=== PATIENT | female | born 1940 | race Caucasian/White ===

== ENCOUNTER 2016-08-03 14:41 | Emergency (ER) | payer OTHER ==
[~2016-08-03] VITALS: Ht 170.2 cm; Wt 95.0 kg
[~2016-08-03 14:41] MED LIST: ASPI81TA28 PO; CARV25TA2 PO; CLB/200 PO; DICY10CA55 PO; ENOX0.8I8 SQ; HYDR12.56 PO; LEVO50TA PO; LORA-741 PO; NRV5 PO; OXYC1TAB3 PO; TYLOTC500 PO; WARF2.5T8 PO; WARF5TAB7 PO
[2016-08-03 14:47] VITALS: TEMP 37; Ht 170.2 cm; Wt 95.0 kg
[2016-08-03] MEDS ORDERED: LEVO25TA5 PO (14:52)
[2016-08-03] MEDS ORDERED: ONDANSETRON INJ 2 MG/ML 2 ML VIAL IV STA (15:08)
[2016-08-03] MEDS ORDERED: MoRPHine SULFATE 4 MG/ML 1 ML CARP\\VIAL IV STA (15:08)
--- NOTE | 2016-08-03 15:16 | EMERGENCY ROOM VISIT NOTE ---
History First contact with patient: 14:59 Chief Complaint: SHOULDER PAIN Stated Complaint: FALL/SHOULDER PAIN History of Present Illness The patient is a 75 year old female who presents to the Emergency Room with complaints of fall. The patient was at home when a dog that was a visiting was running away and she took several steps to [place] after the dog and slipped on ice. The patient states she tried to catch herself with her right arm and fell onto her right side. She reports pain in the right side of her neck and right shoulder. The pain is rated a 10/10 and is worse with any movement. The patient denies striking her head or having loss of consciousness. She denies any chest pain, trouble breathing, abdominal pain, nausea or vomiting. She denies any pain in the hips, lower extremities or left upper extremity. The patient states that although with some difficulty she was able to get up and ambulate after the fall. She was brought to the emergency department via ALS ambulance and had received IV fentanyl in route. She states that this did not help her pain. The patient does take Coumadin. Review of Systems A 10 system review of systems was completed with positives and pertinent negatives listed in the HPI. Past Medical/Surgical History Medical Problems: (1) Atrial fibrillation (2) CAD (coronary artery disease) (3) DVT (deep venous thrombosis) (4) Dyslipidemia (5) GERD (gastroesophageal reflux disease) (6) HTN (hypertension) (7) Hypothyroidism (8) IPMN (intraductal papillary mucinous neoplasm) (9) Pacemaker (10) Pulmonary embolism (11) SSS (sick sinus syndrome) Surgical Problems: (1) H/O arthroscopy of knee (2) H/O arthroscopy of shoulder (3) History of hysterectomy (4) Hx of adenoidectomy (5) Hx of appendectomy (6) Hx of cataract surgery (7) Hx of cholecystectomy (8) Hx of hemorrhoidectomy (9) Hx of tonsillectomy (10) S/P BSO (bilateral salpingo-oophorectomy) (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 Social History Smoking Status: Never Smoker Marital Status: Housing Status: lives with significant other Occupation Status: retired Current/Historical Medications Scheduled Amlodipine Besylate (Amlodipine Besylate), 5 MG PO DAILY Aspirin (Aspirin Ec), 81 MG PO HS Carvedilol (Coreg), 25 MG PO BID Levothyroxine Sodium (Levothyroxine Sodium), 25 MG PO DAILY Warfarin Sod (Jultoven), 2.5 MG PO QPM Warfarin Sod (Jultoven), 5 MG PO Scheduled PRN Acetaminophen (Tylenol), 1,000 MG PO for Pain or Fever Celecoxib (CeleBREX), 200 MG PO for Pain Dicyclomine Hcl (Bentyl), 20 MG PO BID PRN for ABDOMINAL PAIN Hydrochlorothiazide (Hctz), 1 CAP PO QAM PRN for swelling Lorazepam (Ativan), 0.5 MG PO HS PRN for Sleep Omeprazole (Prilosec), 20 MG PO DAILY PRN for Dyspepsia Oxycodone Ir (Roxicodone Ir), 1-2 TAB PO Q4H PRN for Pain Allergies Coded Allergies: Prednisone (Verified Allergy, Severe, GI PAIN-LED TO PANCREATITIS, ) Iodinated Diagnostic Agents (Verified Allergy, Unknown, HIVES-ANAPHYLACTIC , 06/16/16) Losartan (Unverified Allergy, Unknown, NAUSEA AND VOMITING, 06/16/16) Ranitidine (Unverified Allergy, Unknown, NAUSEA AND VOMITING,ACHY, ) Rosiglitazone (Verified Adverse Reaction, Severe, BLOOD CLOTS, 06/16/16) Physical Exam Vital Signs Date Time Temp Pulse Resp B/P Pulse Ox O2 Delivery O2 Flow Rate FiO2 08/03/16 19:46 63 16 136/87 96 Room Air 08/03/16 14:47 37.0 82 20 180/112 93 Room Air Physical Exam VITALS: Vitals are noted on the nurse's note and reviewed by myself. Vital signs stable. GENERAL: This is a 75-year-old female, in no acute distress, nondiaphoretic, well-developed well-nourished. SKIN: The skin was without rashes, erythema, edema, or bruising. There is a lipoma to the mid right upper arm which has been there for some time. There are no lacerations or abrasions. There is no tenting of the skin. Capillary reflex less than 2 seconds. HEAD: Normocephalic atraumatic. EARS: External auditory canals clear, tympanic membranes pearly shah without erythema or effusion bilaterally. No hemotympanum. No martins sign. No mastoid tenderness. EYES: Pupils equal round and reactive to light and accommodation. Conjunctivae without injection, sclerae without icterus. Extraocular movements intact. NOSE: Patent, turbinates without inflammation or discharge. No septal hematoma or bleeding. FACE: No facial tenderness. Full range of motion of the jaw without tenderness. MOUTH: Mucous membranes moist. Pharynx without erythema or exudate. Uvula midline. Airway patent. Tongue does not deviate. NECK: Supple without nuchal rigidity. Cervical spine is nontender. There is mild tenderness to palpation to the paraspinous muscles on the right. No JVD. HEART: Regular rate and rhythm without murmurs gallops or rubs. LUNGS: Clear to auscultation bilaterally without wheezes, rales or rhonchi. No dullness to percussion. No retractions or accessory muscle use. No chest tenderness. ABDOMEN: Positive bowel sounds x 4. Soft, nontender, without masses or organomegaly. MUSCULOSKELETAL: No muscle atrophy, erythema, or edema noted. The patient is unable to move the right shoulder secondary to pain. There is no tenderness to palpation over the right hand, wrist, forearm or elbow. There is no obvious deformity. The patient is unable to sit up to examine the back due to discomfort. Strength 5/5 throughout. NEURO: Patient was alert and oriented to person place and time. Normal Mini- Mental status exam. No focal neurological deficits. Medical Decision & Procedures ER Provider Diagnostic Interpretation: [~ rep ct add3]] RIGHT SHOULDER 2 VIEWS CLINICAL HISTORY: Fall with right arm pain. FINDINGS: 2 views of the right shoulder are obtained. No prior studies are available for comparison at time dictation. The skeletal structures are osteopenic. There is an impacted and comminuted fracture through the right humeral head and neck. The greater tuberosity is posteriorly distracted. Overlying soft tissue edema is observed. No dislocation is seen. The acromioclavicular joint is normal as visualized. The skeletal structures are osteopenic. Pacemaker leads are partially imaged. Airspace opacities are noted at the right lung base and may represent atelectasis. IMPRESSION: 1. There is an impacted and comminuted fracture through the right humeral head and neck with posterior distraction of the greater tuberosity and overlying soft tissue edema. 2. No additional fracture is identified. There is no dislocation. RIGHT HUMERUS MIN 2 VIEWS ROUTINE CLINICAL HISTORY: fall, arm pain Right trauma. Pain. COMPARISON: None. DISCUSSION: Comminuted fracture of the humeral head and neck. Partial anterior subluxation. Remainder of the humerus is unremarkable. Visualized components of the elbow are unremarkable. There is no evidence for soft tissue swelling. IMPRESSION: Comminuted fracture humeral head and neck with partial anterior subluxation of the humeral head in relation to the glenoid. [~ rep ct add3]] CT HEAD WITHOUT CONTRAST (CT) CLINICAL HISTORY: Head trauma. Patient on Coumadin. COMPARISON STUDY: 07/10/2014 TECHNIQUE: Axial CT of the brain is performed from the vertex to the skull base. IV contrast was not administered for this examination. CT DOSE: FINDINGS: No intra or extra-axial mass lesions are visualized. There is no CT evidence of acute cortical infarction. There is no evidence of midline shift. There is no acute hemorrhage. No calvarial fractures are visualized. There are patchy white matter hypodensities likely on a small vessel basis. There is no evidence of pathologic ventricular dilatation. There is no evidence of acute sinusitis. There is a 15 mm ovoid nodule within the right frontoparietal scalp, possibly representing a sebaceous cyst. This appears larger on the prior study. IMPRESSION: 1. No acute intracranial findings 2. Enlarging 15 mm ovoid right frontal parietal scalp nodule, possibly representing a sebaceous cyst CERVICAL SPINE CT CT DOSE: 1210.15 mGy.cm HISTORY: fall, neck pain TECHNIQUE: Multiaxial CT images of the cervical spine were performed and reformatted in the sagittal and coronal plane without the use of contrast. COMPARISON: None. FINDINGS: No fractures. No subluxation. Prevertebral soft tissues and the C1-C2 interval are intact. No pneumothorax. Moderate to severe disc space narrowing at C5-C6 and C6-C7. Minimal anterior wedging within the C7 vertebral body is likely chronic. IMPRESSION: No acute fractures within the cervical spine. RIGHT SHOULDER CT CT DOSE: 1343.13 mGy.cm HISTORY: right proximal humerus fracture Right TECHNIQUE: Multiaxial CT images of the right shoulder were performed and reformatted in the sagittal and coronal plane without the use of contrast. COMPARISON: Right shoulder and right humerus 08/03/2016. FINDINGS: Left-sided pacemaker wires are noted. There are poststernotomy changes. The right clavicle, scapula, and visualized right ribs are intact. There is again noted a comminuted and impacted right humeral neck fracture which extends to the greater tuberosity of the humeral head. No dislocation. The humeral head demonstrates up to 1 cm of lateral displacement in relation to the humeral neck. There are few small sclerotic foci within the proximal humeral shaft with the largest measuring 1 cm. Perihilar groundglass opacity and mild interlobular septal thickening within the lungs favors mild pulmonary edema. No right-sided pneumothorax. Mild soft tissue edema surrounding the proximal humerus fracture. IMPRESSION: 1. Comminuted, impacted, mildly displaced right humeral neck fracture which extends to the greater tuberosity of the humeral head. No dislocation. 2. There are few small sclerotic foci within the marrow of the proximal humeral shaft. This could be due to the recent trauma. However, this does raise the possibility of a pathologic fracture. 3. Mild pulmonary edema. Laboratory Results 08/03/16 17:18 Red Blood Count 4.69, Mean Corpuscular Volume 87.2, Mean Corpuscular Hemoglobin 29.0, Mean Corpuscular Hemoglobin Concent 33.3, Mean Platelet Volume 12.3, Neutrophils (%) (Auto) 82.5, Lymphocytes (%) (Auto) 9.6, Monocytes (%) (Auto) 7.1, Eosinophils (%) (Auto) 0.3, Basophils (%) (Auto) 0.2, Neutrophils # (Auto) 9.82, Lymphocytes # (Auto) 1.14, Monocytes # (Auto) 0.84, Eosinophils # (Auto) 0.03, Basophils # (Auto) 0.02 08/03/16 17:18 Test 08/03/16 17:18 White Blood Count 11.88 K/uL (4.8-10.8) Red Blood Count 4.69 M/uL (4.2-5.4) Hemoglobin 13.6 g/dL (12.0-16.0) Hematocrit 40.9 % (37-47) Mean Corpuscular Volume 87.2 fL (80-100) Mean Corpuscular Hemoglobin 29.0 pg (25-34) Mean Corpuscular Hemoglobin Concent 33.3 g/dl (32-36) Platelet Count 199 K/uL (130-400) Mean Platelet Volume 12.3 fL (7.4-10.4) Neutrophils (%) (Auto) 82.5 % Lymphocytes (%) (Auto) 9.6 % Monocytes (%) (Auto) 7.1 % Eosinophils (%) (Auto) 0.3 % Basophils (%) (Auto) 0.2 % Neutrophils # (Auto) 9.82 K/uL (1.4-6.5) Lymphocytes # (Auto) 1.14 K/uL (1.2-3.4) Monocytes # (Auto) 0.84 K/uL (0.11-0.59) Eosinophils # (Auto) 0.03 K/uL (0-0.5) Basophils # (Auto) 0.02 K/uL (0-0.2) RDW Standard Deviation 46.8 fL (36.4-46.3) RDW Coefficient of Variation 14.8 % (11.5-14.5) Immature Granulocyte % (Auto) 0.3 % Immature Granulocyte # (Auto) 0.03 K/uL (0.00-0.02) Prothrombin Time 44.8 SECONDS (9.0-12.0) Prothromb Time International Ratio 4.0 (0.9-1.1) Activated Partial Thromboplast Time 36.4 SECONDS (21.0-31.0) Partial Thromboplastin Ratio 1.4 Anion Gap 11.0 mmol/L (3-11) Est Creatinine Clear Calc Drug Dose 73.6 ml/min Estimated GFR () 86.9 Estimated GFR (Non- 75.0 BUN/Creatinine Ratio 22.1 (10-20) Calcium Level 8.5 mg/dl (8.5-10.1) Medications Administered Medications (Trade) Dose Ordered Sig/Anastasia Route Start Time Stop Time Status Last Admin Dose Admin Morphine Sulfate (MoRPHine SULFATE INJ) 4 mg NOW STAT IV 08/03/16 15:08 08/03/16 15:12 DC 08/03/16 15:33 4 MG Ondansetron HCl (Zofran Inj) 4 mg NOW STAT IV 08/03/16 15:08 08/03/16 15:12 DC 08/03/16 15:32 4 MG Hydromorphone HCl (Dilaudid Inj) 0.5 mg NOW STAT IV 08/03/16 16:33 08/03/16 16:38 DC 08/03/16 16:40 0.5 MG Hydromorphone HCl (Dilaudid Inj) 0.5 mg NOW STAT IV 08/03/16 18:44 08/03/16 18:45 DC 08/03/16 19:07 0.5 MG Procedure The patient was placed in a sling and swath by the emergency department digital camera technician. The position was satisfactory. Neurovascular status was intact. ED Course The patient was seen and examined. Previous visits were reviewed. The patient does not have a fever. She does have a mild leukocytosis. She does not have any significant electrolyte abnormality. INR was 4.0 and she was advised of this. CT scan of the brain and neck do not reveal any acute abnormality X-ray of the right shoulder reveals a displaced proximal humerus fracture The patient received IV fentanyl by ALS ambulance prior to arrival The patient was initially given 4 mg IV morphine and 4 mg IV Zofran with no improvement in her pain She was given 0.5 mg IV Dilaudid and she seems slightly sedated but stated is only mildly helped her pain She was given an additional 0.5 mg IV Dilaudid prior to discharge I discussed the case with Dr. Barker as the patient has seen Dr. Lewis in the past. He suggests follow-up as an outpatient. He called back after discussing the case with Dr. Robison who requested a CT scan of the shoulder. This was obtained as above. They recommend follow-up with Dr. Robison most likely on Sunday. The patient was placed in a sling and swath shoulder immobilizer and her pain did mildly improve with this The patient was given a take-home pack of OxyIR as well as a prescription. The patient did seem to be sedated with the above medications. She states that she had taken 10 mg oxycodone in the past for many years. She was advised to take 1 -2 OxyIR tablets as needed. She should contact orthopedics first thing in the morning to schedule a follow-up appointment. She should return to the ER with any worsening symptoms. The patient was anxious to leave and did not want to wait for the INR to return. Just prior to discharge, I advised her that it was 4.0. She was advised to discuss this with her doctor in the morning. The patient was also seen and examined by who agrees with the assessment and treatment plan. Medical Decision The differential diagnosis includes intracranial bleeding, skull fracture, cervical spine fracture, extremity fracture, contusion, among others [place] Drug Monitoring Program Search Results: patient reviewed within database, see additional documentation Drug Monitoring Findings: The patient does fill oxycodone tablets regularly. However, the patient does have a displaced proximal humerus fracture and I will prescribe her pain medication. Impression Primary Impression: Proximal humerus fracture Additional Impressions: Fall Cervical strain Closed head injury Departure Information Dispostion Home / Self-Care Condition GOOD Prescriptions Oxycodone Ir (Roxicodone Ir) 5 Mg Tab 1-2 TAB PO Q4H Y for Pain, #36 TAB For Initial Treatment Prov: Sita Wagoner PA-C 08/03/16 Referrals Payam Escalona D.O. (PCP) Calvin Robison M.D. Patient Instructions Fx Leg Arm, My [facility] [employer] Additional Instructions Oxy IR 1-2 tablets every 4-6 hrs as needed for worse pain. No driving or alcohol use with Oxy IR. Wear the sling and swath until seen by orthopedics Sleep in a recliner Contact orthopedics first thing in the morning to schedule a follow-up appointment with Dr. Robison Return with any worsening pain, numbness, tingling Problem Qualifiers Primary Impression: Proximal humerus fracture Encounter type: initial encounter Fracture type: closed Fracture morphology : other fracture Fracture alignment: displaced Laterality: right Qualified Codes: S42.291A - Other displaced fracture of upper end of right humerus, initial encounter for closed fracture Additional Impressions: Fall Encounter type: initial encounter Qualified Codes: W19.XXXA - Unspecified fall, initial encounter Cervical strain Encounter type: initial encounter Qualified Codes: S16.1XXA - Strain of muscle, fascia and tendon at neck level, initial encounter Closed head injury Encounter type: initial encounter Qualified Codes: S09.90XA - Unspecified injury of head, initial encounter
[2016-08-03] MEDS ORDERED: OMEP20CA9 PO (15:31)
--- NOTE | 2016-08-03 16:02 | DIAGNOSTIC IMAGING REPORT ---
RIGHT SHOULDER 2 VIEWS CLINICAL HISTORY: Fall with right arm pain. FINDINGS: 2 views of the right shoulder are obtained. No prior studies are available for comparison at time dictation. The skeletal structures are osteopenic. There is an impacted and comminuted fracture through the right humeral head and neck. The greater tuberosity is posteriorly distracted. Overlying soft tissue edema is observed. No dislocation is seen. The acromioclavicular joint is normal as visualized. The skeletal structures are osteopenic. Pacemaker leads are partially imaged. Airspace opacities are noted at the right lung base and may represent atelectasis. IMPRESSION: 1. There is an impacted and comminuted fracture through the right humeral head and neck with posterior distraction of the greater tuberosity and overlying soft tissue edema. 2. No additional fracture is identified. There is no dislocation. Electronically signed by: Baljeet Avitia M.D. 08/03/2016 4:00 PM Dictated Date/Time: 08/03/2016 3:58 PM
--- NOTE | 2016-08-03 16:02 | DIAGNOSTIC IMAGING REPORT ---
RIGHT HUMERUS MIN 2 VIEWS ROUTINE CLINICAL HISTORY: fall, arm pain Right trauma. Pain. COMPARISON: None. DISCUSSION: Comminuted fracture of the humeral head and neck. Partial anterior subluxation. Remainder of the humerus is unremarkable. Visualized components of the elbow are unremarkable. There is no evidence for soft tissue swelling. IMPRESSION: Comminuted fracture humeral head and neck with partial anterior subluxation of the humeral head in relation to the glenoid. Electronically signed by: Josh David M.D. 08/03/2016 4:00 PM Dictated Date/Time: 08/03/2016 3:58 PM
--- NOTE | 2016-08-03 16:28 | DIAGNOSTIC IMAGING REPORT ---
CT HEAD WITHOUT CONTRAST (CT) CLINICAL HISTORY: Head trauma. Patient on Coumadin. COMPARISON STUDY: 07/10/2014 TECHNIQUE: Axial CT of the brain is performed from the vertex to the skull base. IV contrast was not administered for this examination. CT DOSE: FINDINGS: No intra or extra-axial mass lesions are visualized. There is no CT evidence of acute cortical infarction. There is no evidence of midline shift. There is no acute hemorrhage. No calvarial fractures are visualized. There are patchy white matter hypodensities likely on a small vessel basis. There is no evidence of pathologic ventricular dilatation. There is no evidence of acute sinusitis. There is a 15 mm ovoid nodule within the right frontoparietal scalp, possibly representing a sebaceous cyst. This appears larger on the prior study. IMPRESSION: 1. No acute intracranial findings 2. Enlarging 15 mm ovoid right frontal parietal scalp nodule, possibly representing a sebaceous cyst Electronically signed by: Danilo Bautista M.D. 08/03/2016 4:26 PM Dictated Date/Time: 08/03/2016 4:24 PM
[2016-08-03] MEDS ORDERED: HYDROmorphone INJ 0.5 MG/0.5 ML SYR IV STA ×2 (16:33→18:44)
--- NOTE | 2016-08-03 16:38 | DIAGNOSTIC IMAGING REPORT ---
CERVICAL SPINE CT CT DOSE: 1210.15 mGy.cm HISTORY: fall, neck pain TECHNIQUE: Multiaxial CT images of the cervical spine were performed and reformatted in the sagittal and coronal plane without the use of contrast. COMPARISON: None. FINDINGS: No fractures. No subluxation. Prevertebral soft tissues and the C1-C2 interval are intact. No pneumothorax. Moderate to severe disc space narrowing at C5-C6 and C6-C7. Minimal anterior wedging within the C7 vertebral body is likely chronic. IMPRESSION: No acute fractures within the cervical spine. Electronically signed by: Preston Schroeder M.D. 08/03/2016 4:37 PM Dictated Date/Time: 08/03/2016 4:30 PM
[2016-08-03 17:35] LABS: BASO % 0.2 %; BASO ABS # 0.02 K/uL (0-0.2); COMPLETE YES; EOS % 0.3 %; HEMATOCRIT 40.9 % (37-47); IG% 0.3 %; LYMPH % 9.6 %; LYMPH ABS # 1.14 K/uL (1.2-3.4); MEAN CELL VOLUME 87.2 fL (80-100); MEAN CORPUSCULAR HGB CONC 33.3 g/dl (32-36); MEAN PLATELET VOLUME 12.3 fL (7.4-10.4); MONO % 7.1 %; NEUT % 82.5 %; PLATELET COUNT 199 K/uL (130-400); RED BLOOD COUNT 4.69 M/uL (4.2-5.4); WHITE BLOOD COUNT 11.88 K/uL (4.8-10.8)
--- NOTE | 2016-08-03 17:59 | DIAGNOSTIC IMAGING REPORT ---
RIGHT SHOULDER CT CT DOSE: 1343.13 mGy.cm HISTORY: right proximal humerus fracture Right TECHNIQUE: Multiaxial CT images of the right shoulder were performed and reformatted in the sagittal and coronal plane without the use of contrast. COMPARISON: Right shoulder and right humerus 08/03/2016. FINDINGS: Left-sided pacemaker wires are noted. There are poststernotomy changes. The right clavicle, scapula, and visualized right ribs are intact. There is again noted a comminuted and impacted right humeral neck fracture which extends to the greater tuberosity of the humeral head. No dislocation. The humeral head demonstrates up to 1 cm of lateral displacement in relation to the humeral neck. There are few small sclerotic foci within the proximal humeral shaft with the largest measuring 1 cm. Perihilar groundglass opacity and mild interlobular septal thickening within the lungs favors mild pulmonary edema. No right-sided pneumothorax. Mild soft tissue edema surrounding the proximal humerus fracture. IMPRESSION: 1. Comminuted, impacted, mildly displaced right humeral neck fracture which extends to the greater tuberosity of the humeral head. No dislocation. 2. There are few small sclerotic foci within the marrow of the proximal humeral shaft. This could be due to the recent trauma. However, this does raise the possibility of a pathologic fracture. 3. Mild pulmonary edema. Electronically signed by: Preston Schroeder M.D. 08/03/2016 5:58 PM Dictated Date/Time: 08/03/2016 5:52 PM
[2016-08-03 18:09] LABS: POTASSIUM 3.7 mmol/L (3.5-5.1)
[2016-08-03 18:13] LABS: PARTIAL THROMBOPLASTIN RATIO 1.4; PROTHROMBIN TIME (PATIENT) 44.8 SECONDS (9.0-12.0)
[2016-08-03 18:34] LABS: BUN/CREATININE RATIO 22.1 (10-20); CALCIUM 8.5 mg/dl (8.5-10.1); CREATININE 0.77 mg/dl (0.60-1.20)
[2016-08-03] MEDS ORDERED: OXYC1TAB3 PO (18:50)
[2016-08-03] MEDS ORDERED: OXYCODONE IR HOME PACK PO ONE (19:00)
--- NOTE | 2016-08-03 19:02 | EMERGENCY ROOM VISIT NOTE ---
ED Visit Note First contact with patient: 14:59 Staff note: I have reviewed the Patients chart and have discussed this case with my PA. I generally agree with the ED note and findings.
[2016-08-03 19:46] VITALS: BP 136/87; PULSE 63; O2SAT 96
[2016-12-19] MEDS ORDERED: IMDSR60 PO (13:46)
== END 2016-08-03 19:47 | disposition home or self-care (01) ==
LOC: EDBD 14:41 → C.EDA 14:45
DX: S42.291A Other displaced fracture of upper end of right humerus, initial encounter for closed fracture (principal); S16.1XXA Strain of muscle, fascia and tendon at neck level, initial encounter; S09.90XA Unspecified injury of head, initial encounter; W00.0XXA Fall on same level due to ice and snow, initial encounter; I48.91 Unspecified atrial fibrillation; I25.10 Atherosclerotic heart disease of native coronary artery without angina pectoris; K21.9 Gastro-esophageal reflux disease without esophagitis; E78.5 Hyperlipidemia, unspecified; I10 Essential (primary) hypertension; E03.9 Hypothyroidism, unspecified; Z95.0 Presence of cardiac pacemaker; Z90.710 Acquired absence of both cervix and uterus; Z79.82 Long term (current) use of aspirin

== ENCOUNTER 2016-12-18 15:37 | Observation (INO) | payer OTHER ==
[~2016-12-18] VITALS: Ht 170.2 cm; Wt 61.4 kg
[~2016-12-18 15:37] MED LIST changes: -ENOX0.8I8 SQ; +LEVO25TA5 PO; -LEVO50TA PO; +OMEP20CA9 PO
[2016-12-18] MEDS ORDERED: PROPARACAINE HCL 0.5% OP SOLN 15 ML BTL ONE (16:25)
--- NOTE | 2016-12-18 16:31 | DIAGNOSTIC IMAGING REPORT ---
CHEST ONE VIEW PORTABLE CLINICAL HISTORY: Atypical chest pain COMPARISON STUDY: 06/14/2016 FINDINGS: The heart is at the upper limits of normal in size. There are postsurgical changes of a midline sternotomy. There is a left subclavian dual-chamber central venous pacemaker. There is no failure. There is no focal pulmonary consolidation. There are no pleural effusions.[ There is a comminuted proximal right humeral fracture. IMPRESSION: AP portable study. No acute findings. Electronically signed by: Danilo Bautista M.D. 12/18/2016 4:30 PM Dictated Date/Time: 12/18/2016 4:29 PM
[2016-12-18 16:50] LABS: BASO % 0.5 %; BASO ABS # 0.03 K/uL (0-0.2); COMPLETE YES; EOS % 1.4 %; HEMATOCRIT 44.8 % (37-47); IG% 0.5 %; LYMPH % 28.8 %; LYMPH ABS # 1.82 K/uL (1.2-3.4); MEAN CELL VOLUME 85.7 fL (80-100); MEAN CORPUSCULAR HEMOGLOBIN 28.3 pg (25-34); MONO % 9.2 %; NEUT % 59.6 %; PLATELET COUNT 198 K/uL (130-400); RED BLOOD COUNT 5.23 M/uL (4.2-5.4); WHITE BLOOD COUNT 6.31 K/uL (4.8-10.8)
[2016-12-18] MEDS ORDERED: ISOS60TA25 PO (16:51)
[2016-12-18] MEDS ORDERED: NTRSL3 UT (16:51)
[2016-12-18] MEDS ORDERED: IBUP-1050 PO (16:51)
[2016-12-18] MEDS ORDERED: TRAZ50TA35 PO (16:51)
[2016-12-18] MEDS ORDERED: TRAM-10 PO (16:51)
[2016-12-18] MEDS ORDERED: BUSP15TA70 PO (16:51)
[2016-12-18] MEDS ORDERED: HYDR5TAB57 PO (16:51)
[2016-12-18 16:59] LABS: INR 2.4 (0.9-1.1); PROTHROMBIN TIME (PATIENT) 26.2 SECONDS (9.0-12.0)
[2016-12-18 17:11] LABS: ALT/SGPT 25 U/L (12-78); AST/SGOT 14 U/L (15-37); BLOOD UREA NITROGEN 16 mg/dl (7-18); BUN/CREATININE RATIO 20.2 (10-20); CALCIUM 9.1 mg/dl (8.5-10.1); CARBON DIOXIDE 28 mmol/L (21-32); CHLORIDE 107 mmol/L (98-107); CREATININE 0.79 mg/dl (0.60-1.20); GLUCOSE 103 mg/dl (70-99); MAGNESIUM 2.2 mg/dl (1.8-2.4); POTASSIUM 3.5 mmol/L (3.5-5.1); SODIUM 142 mmol/L (136-145)
[2016-12-18 17:16] LABS: ALB/GLOB RATIO 1.1 (0.9-2); ALKALINE PHOSPHATASE 102 U/L (45-117)
[2016-12-18] MEDS ORDERED: ONDANSETRON INJ 2 MG/ML 2 ML VIAL IV PRN (18:15)
[2016-12-18] MEDS ORDERED: ZOLPIDEM TARTRATE 5 MG TAB PO PRN (18:15)
[2016-12-18] MEDS ORDERED: ALUMINUM/MAGNESIUM/SIMETH (MAALOX MAX) 30 ML UDC PO PRN (18:15)
[2016-12-18] MEDS ORDERED: ACETAMINOPHEN 325 MG TAB PO PRN (18:15)
[2016-12-18] MEDS ORDERED: POLYETHYLENE (MIRALAX) 17 GM PACK PO PRN (18:15)
[2016-12-18] MEDS ORDERED: NITROGLYCERIN 0.4 MG SL PER TAB CHARGE SL PRN (18:15)
[2016-12-18] MEDS ORDERED: MAGNESIUM HYDROXIDE SUSP 30 ML UDC PO PRN (18:15)
--- NOTE | 2016-12-18 18:15 | History and Physical ---
History & Physical Date & Time of Service: Dec 18, 2016 at 18:15 Chief Complaint: Chest Pain Primary Care Physician: Payam Escalona D.O. History of Present Illness Source: patient this is a 76 yo female with extensive cardiac hx of S/P CABG X3 vessels disease in [place] 2005 , S/P cardiac stent , Afib on Coumadin , Hx of DVT /PE , Sick sinus syndrome s/p pacemaker placement , HTN came to ED with complain of chest pain /discomfort with minimum exertion . Pt has been having anginal symptom with activity for approx X3 week , symptom has been progressively worsen to the point it is limiting her daily activities She has Lexiscan Nc stress done on 11/21 showed : Lateral and basilar inferior lateral ischemia , gated images reveal normal myocardial thickening and wall motion , EF > 70 % pt was offered for Cardiac Cath -refused with concern for possible adverse reaction /allergic reaction to contrast dye she experienced during prior CABG surgery in [place] she was started on Imdur 30 mg daily Pt had improvement of Angina symptom on exertion for few days , then symptoms return -gets substernal chest heaviness with activity , gets relief with rest Had office visit with Dr Mercado on -was encouraged again for cardiac cath possibly needs to be done at [place] pt refused for cardiac intervention Imdur dose increased to 60 mg daily script given for SL nitro PRN pt is asked to come to ED with any symptom of worsening of chest pain or SOB today -her symptom was persisted , minimum activity caused substernal chest discomfort pt arrived to ED pain was relieved with SL nitro during my time of interview , pt was chest pain free, comfortable mentions she never gets pain or SOB if stays in bed or sitting had discussion regarding need for Cardiac cath for possible worsening of coronary occlusion as noted in Last Nc stress test should be done in [place] for her concern for severe dye allergy pt is still reluctant for Cardiac cath , does not want to go to [place] also mentions her reluctance to take Prednisone for prep -as it made her sick in stomach ( pt has been taking Cortef /Hydrocortisone 5 mg PO Daily per Dr Carter / Endocrine for possible adrenal insufficiency -has not had any problem with PO steroid ) pt mentions she has not taken Imdur 60 mg today as she took SL nitro Past Medical/Surgical History Medical Problems: (1) Atrial fibrillation Status: Chronic (2) CAD (coronary artery disease) Permanent Comment: s/p CABG x 3, PCI x 3 Status: Chronic (3) DVT (deep venous thrombosis) Status: Chronic (4) Dyslipidemia Status: Chronic (5) GERD (gastroesophageal reflux disease) Status: Chronic (6) HTN (hypertension) Status: Chronic (7) Hypothyroidism Status: Chronic (8) IPMN (intraductal papillary mucinous neoplasm) Status: Chronic (9) Pacemaker Status: Chronic (10) Pulmonary embolism Status: Chronic (11) SSS (sick sinus syndrome) Status: Chronic Surgical Problems: (1) H/O arthroscopy of knee Status: Chronic (2) H/O arthroscopy of shoulder Status: Chronic (3) History of hysterectomy Status: Chronic (4) Hx of adenoidectomy Status: Chronic (5) Hx of appendectomy Status: Chronic (6) Hx of cataract surgery Status: Chronic (7) Hx of cholecystectomy Status: Chronic (8) Hx of hemorrhoidectomy Status: Chronic (9) Hx of tonsillectomy Status: Chronic (10) S/P BSO (bilateral salpingo-oophorectomy) Status: Chronic (11) S/P CABG x 3 Status: Chronic Family History Patient reports no known family medical history. Social History Smoking Status: Never Smoker Marital Status: Housing status: lives with family Occupational Status: retired Immunizations History of Influenza Vaccine: Yes Influenza Vaccine Date: Apr 01, 2011 History of Tetanus Vaccine?: Yes Tetanus Immunization Date: Sep 13, 2011 History of Pneumococcal: Yes Pneumococcal Date: Apr 04, 2013 History of Hepatitis B Vaccine: No Multi-Drug Resistant Organisms History of MDRO: No Allergies Coded Allergies: Prednisone (Verified Allergy, Severe, GI PAIN-LED TO PANCREATITIS, 12/18/16 ) Iodinated Diagnostic Agents (Verified Allergy, Unknown, HIVES-ANAPHYLACTIC , 12/18/16) Losartan (Verified Allergy, Unknown, NAUSEA AND VOMITING, 12/18/16) Ranitidine (Verified Allergy, Unknown, NAUSEA AND VOMITING,ACHY, 12/18/16) Rosiglitazone (Verified Adverse Reaction, Severe, BLOOD CLOTS, 12/18/16) Home Medications Scheduled Amlodipine Besylate (Amlodipine Besylate), 5 MG PO DAILY Aspirin (Aspirin Ec), 81 MG PO HS Buspirone Hcl (Buspar), 15 MG PO BID Carvedilol (Coreg), 25 MG PO BID Hydrocortisone (Cortef), 5 MG PO Q2D Isosorbide Mononitrate Ext Rel (Imdur Ext Rel), 60 MG PO QAM Levothyroxine Sodium (Levothyroxine Sodium), 25 MCG PO DAILY Trazodone Hcl (Trazodone), 50 MG PO HS Warfarin Sod (Jantoven), 2.5 MG PO QPM Scheduled PRN Celecoxib (CeleBREX), 200 MG PO for Pain Dicyclomine Hcl (Bentyl), 20 MG PO BID PRN for ABDOMINAL PAIN Hydrochlorothiazide (Hctz), 1 CAP PO QAM PRN for swelling Ibuprofen (Advil), 200-600 MG PO Q4H PRN for Pain Nitroglycerin (Nitrostat), 0.3 MG UT PRN PRN for Chest Pain Omeprazole (Prilosec), 20 MG PO DAILY PRN for Dyspepsia Tramadol (Ultram), 50 MG PO QID PRN for Pain Review of Systems Respiratory: + shortness of breath, + dyspnea on exertion Cardiovascular: + chest pain, + problem reported (substernal chest pain on minimum extertion ) Abdomen: No pain, No nausea, No vomiting, No diarrhea, No constipation, No GI bleeding, No problem reported Genitourinary - Female: No dysuria, No urinary frequency, No urinary urgency, No urinary incontinence, No urinary retention, No hematuria, No dysmenorrhea, No menorrhagia, No metrorrhagia, No rash, No vaginal bleeding, No vaginal discharge, No vaginal itching, No vulvodynia, No , No problem reported Neurologic: No memory loss, No paralysis, No weakness, No numbness/tingling, No vertigo, No balance problems, No problem reported Physical Exam Vital Signs Date Time Temp Pulse Resp B/P (MAP) Pulse Ox O2 Delivery O2 Flow Rate FiO2 12/18/16 17:14 150/94 12/18/16 17:07 67 21 93 12/18/16 16:52 69 16 93 12/18/16 16:37 65 18 93 12/18/16 16:22 64 17 93 12/18/16 16:07 76 16 93 12/18/16 15:52 78 21 96 12/18/16 15:46 95 Room Air 12/18/16 15:43 85 12/18/16 15:43 36.7 81 21 196/119 97 Room Air 12/18/16 15:41 196/119 12/18/16 15:38 Room Air General Appearance: no apparent distress Eyes: sclerae normal Neck: thyroid normal, no carotid bruits Respiratory/Chest: chest non-tender, lungs clear, no respiratory distress Cardiovascular: regular rate, rhythm, no JVD Abdomen/GI: normal bowel sounds, non tender, soft Extremities/Musculoskelatal: + pedal edema (+ 1-2 pedal edema on left leg / ankle, normal exam on right ) Neurologic/Psych: no motor/sensory deficits, alert, oriented x 3 Skin: normal color, warm/dry, no rash Diagnostics Laboratory Results Results Past 24 Hours Test 12/18/16 16:44 12/18/16 18:10 Range/Units White Blood Count 6.31 4.8-10.8 K/uL Red Blood Count 5.23 4.2-5.4 M/uL Hemoglobin 14.8 12.0-16.0 g/dL Hematocrit 44.8 37-47 % Mean Corpuscular Volume 85.7 80-100 fL Mean Corpuscular Hemoglobin 28.3 25-34 pg Mean Corpuscular Hemoglobin Concent 33.0 32-36 g/dl Platelet Count 198 130-400 K/uL Mean Platelet Volume 12.0 7.4-10.4 fL Neutrophils (%) (Auto) 59.6 % Lymphocytes (%) (Auto) 28.8 % Monocytes (%) (Auto) 9.2 % Eosinophils (%) (Auto) 1.4 % Basophils (%) (Auto) 0.5 % Neutrophils # (Auto) 3.76 1.4-6.5 K/uL Lymphocytes # (Auto) 1.82 1.2-3.4 K/uL Monocytes # (Auto) 0.58 0.11-0.59 K/uL Eosinophils # (Auto) 0.09 0-0.5 K/uL Basophils # (Auto) 0.03 0-0.2 K/uL RDW Standard Deviation 46.4 36.4-46.3 fL RDW Coefficient of Variation 14.7 11.5-14.5 % Immature Granulocyte % (Auto) 0.5 % Immature Granulocyte # (Auto) 0.03 0.00-0.02 K/uL Prothrombin Time 26.2 9.0-12.0 SECONDS Prothromb Time International Ratio 2.4 0.9-1.1 Sodium Level 142 136-145 mmol/L Potassium Level 3.5 3.5-5.1 mmol/L Chloride Level 107 98-107 mmol/L Carbon Dioxide Level 28 21-32 mmol/L Anion Gap 7.0 3-11 mmol/L Blood Urea Nitrogen 16 7-18 mg/dl Creatinine 0.79 0.60-1.20 mg/dl Est Creatinine Clear Calc Drug Dose 68.8 ml/min Estimated GFR () 83.7 Estimated GFR (Non- 72.2 BUN/Creatinine Ratio 20.2 10-20 Random Glucose 103 70-99 mg/dl Calcium Level 9.1 8.5-10.1 mg/dl Magnesium Level 2.2 1.8-2.4 mg/dl Total Bilirubin 0.3 0.2-1 mg/dl Aspartate Amino Transf (AST/SGOT) 14 15-37 U/L Alanine Aminotransferase (ALT/SGPT) 25 12-78 U/L Alkaline Phosphatase 102 45-117 U/L Troponin I < 0.015 0-0.045 ng/ml Total Protein 6.7 6.4-8.2 gm/dl Albumin 3.5 3.4-5.0 gm/dl Globulin 3.2 2.5-4.0 gm/dl Albumin/Globulin Ratio 1.1 0.9-2 Diagnostic Radiology CHEST ONE VIEW PORTABLE CLINICAL HISTORY: Atypical chest pain COMPARISON STUDY: 06/14/2016 FINDINGS: The heart is at the upper limits of normal in size. There are postsurgical changes of a midline sternotomy. There is a left subclavian dual-chamber central venous pacemaker. There is no failure. There is no focal pulmonary consolidation. There are no pleural effusions.[ There is a comminuted proximal right humeral fracture. IMPRESSION: AP portable study. No acute findings. EKG Atrial paced Rhythm with prolong AV conduction Qtc 456 Impression Assessment and Plan UNSTABLE ANGINA : presents with Crescendo angina symptom getting progressively worse -even after increasing Imdur dose form 30-> 60 mg recently recent Lexiscan Nc stress suggestive ischemia on Cfx and RCA distribution S/p CABG approx 11 yrs back refused to have cardiac cath done due to contrast dye allergy at present chest pain free -at rest pt will be continued with long acting Nitro , cont Aspirin statin , Coreg ECHO ordered Cardiology consult requested , pt is known to [facility] Cardiology pt is already anticoagulated with Coumadin HX OF CAD S/P CABG /PTCA : with unstable Angina Nc Lexiscan stress test 11/25/16 -lateral and basilar inf /lateral ischemia a at present chest pain free cont Imdur 60 mg /Aspirin /Beta sumi /statin monitor in Tele serial cardiac markers ordered Cardiology eval requested HYPOTHYROIDISM : cont Levothyroxine HTN : cont on Coreg , Norvasc , Imdur ADRENAL INSUFFICIENCY : on Hydrocortisone 5 mg daily follows with Endocrine Dr Burden HX OF AFIB /PE /DVT : rate controlled on Coreg on Coumadin INR therapeutic will hold Coumadin for possible cardiac intervention SICK SINUS SYNDROME : S/P Pacemaker placement FULL CODE DVT PROPHYLAXIS : INR therapeutic hold Coumadin DISPOSITION : To be determined needs Cardiac angiogram and possible intervention -preferably in Tertiary care - [place] will defer to Cardiology team Level of Care Telemetry Resuscitation Status FULL RESUSCITATION VTE Prophylaxis VTE Risk Assessment Done? Y/N: Yes Risk Level: Moderate Given or contraindicated: Warfarin (Coumadin) Additional Copies To Tim Mercado, Payam Russell D.O.
[2016-12-18] MEDS ORDERED: IV FLUIDS COMPLETED PRN (18:30)
--- NOTE | 2016-12-18 18:30 | EMERGENCY ROOM VISIT NOTE ---
History Report prepared by Heath: Jasmin Bond Under the Supervision of: Dr. Samra Allen D.O. First contact with patient: 15:38 Chief Complaint: CHEST PAIN Stated Complaint: CHEST PAIN Nursing Triage Summary: pt has had chest pain for greater than 3 weeks. pt knows she has some blockages and needs a cath, but pt refuses. pt pain free at rest. pt bbroke right shoulder a couple of months ago and has healed on own. pt has pain with activity History of Present Illness The patient is a 76 year old female who presents to the Emergency Room with complaints of persistent chest pain starting several weeks ago. The patient has a history of heart problems including 3 CABG and pacemaker. The patient has had attempted cardiac catheterizations in the past which have cause her to go into anaphylactic shock. She had a nuclear stress test recently which was positive. She has been told that she needs a catheterization, but she refuses because of her past reactions. She describes her pain as a tightness. The pain worsens whenever she exerts herself. She gets the pain even when walking short distances. It is relieved by rest. She has been taking nitro whenever she gets the pain, which helps. She reports tingling in the hands. She denies any SOB. She is on warfarin and baby aspirin. She denies any history of smoking. Source of History: patient Onset: several weeks ago Position: chest Quality: other (tightness) Timing: other (persistent) Modifying Factors (Worsening): exertion Modifying Factors (Relieving): rest Associated Symptoms: No neck pain, No SOB, No back pain Note: Pt reports tingling in hands. Review of Systems See HPI for pertinent positives & negatives. A total of 10 systems reviewed and were otherwise negative. Past Medical & Surgical Medical Problems: (1) Atrial fibrillation (2) CAD (coronary artery disease) (3) Chest pain (4) DVT (deep venous thrombosis) (5) Dyslipidemia (6) GERD (gastroesophageal reflux disease) (7) HTN (hypertension) (8) Hypothyroidism (9) IPMN (intraductal papillary mucinous neoplasm) (10) Pacemaker (11) Pulmonary embolism (12) SSS (sick sinus syndrome) Surgical Problems: (1) H/O arthroscopy of knee (2) H/O arthroscopy of shoulder (3) History of hysterectomy (4) Hx of adenoidectomy (5) Hx of appendectomy (6) Hx of cataract surgery (7) Hx of cholecystectomy (8) Hx of hemorrhoidectomy (9) Hx of tonsillectomy (10) S/P BSO (bilateral salpingo-oophorectomy) (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 Social History Smoking Status: Never Smoker Marital Status: Housing Status: lives with significant other Occupation Status: retired Current/Historical Medications Scheduled Amlodipine Besylate (Amlodipine Besylate), 5 MG PO DAILY Aspirin (Aspirin Ec), 81 MG PO HS Buspirone Hcl (Buspar), 15 MG PO BID Carvedilol (Coreg), 25 MG PO BID Hydrocortisone (Cortef), 5 MG PO Q2D Isosorbide Mononitrate (Isosorbide Mononitrate ER), 60 MG PO BID@0700,1500 Levothyroxine Sodium (Levothyroxine Sodium), 25 MCG PO DAILY Trazodone Hcl (Trazodone), 50 MG PO HS Warfarin Sod (Jantoven), 2.5 MG PO QPM Scheduled PRN Celecoxib (CeleBREX), 200 MG PO for Pain Dicyclomine Hcl (Bentyl), 20 MG PO BID PRN for ABDOMINAL PAIN Hydrochlorothiazide (Hctz), 1 CAP PO QAM PRN for swelling Ibuprofen (Advil), 200-600 MG PO Q4H PRN for Pain Nitroglycerin (Nitrostat), 0.3 MG UT PRN PRN for Chest Pain Omeprazole (Prilosec), 20 MG PO DAILY PRN for Dyspepsia Tramadol (Ultram), 50 MG PO QID PRN for Pain Allergies Coded Allergies: Prednisone (Verified Allergy, Severe, GI PAIN-LED TO PANCREATITIS, 12/18/16 ) Iodinated Diagnostic Agents (Verified Allergy, Unknown, HIVES-ANAPHYLACTIC , 12/18/16) Losartan (Verified Allergy, Unknown, NAUSEA AND VOMITING, 12/18/16) Ranitidine (Verified Allergy, Unknown, NAUSEA AND VOMITING,ACHY, 12/18/16) Rosiglitazone (Verified Adverse Reaction, Severe, BLOOD CLOTS, 12/18/16) Physical Exam Vital Signs Date Time Temp Pulse Resp B/P (MAP) Pulse Ox O2 Delivery O2 Flow Rate FiO2 12/18/16 17:14 150/94 12/18/16 17:07 67 21 93 12/18/16 16:52 69 16 93 12/18/16 16:37 65 18 93 12/18/16 16:22 64 17 93 12/18/16 16:07 76 16 93 12/18/16 15:52 78 21 96 12/18/16 15:46 95 Room Air 12/18/16 15:43 85 12/18/16 15:43 36.7 81 21 196/119 97 Room Air 12/18/16 15:41 196/119 12/18/16 15:38 Room Air Physical Exam GENERAL: alert, well appearing, well nourished, no distress, non-toxic EYE EXAM: normal conjunctiva, PERRL and EOM's grossly intact OROPHARYNX: no exudate, no erythema, lips, buccal mucosa, and tongue normal and mucous membranes are moist NECK: supple, no nuchal rigidity, no adenopathy, non-tender LUNGS: Clear to auscultation. Normal chest wall mechanics HEART: no murmurs, S1 normal and S2 normal ABDOMEN: abdomen soft, non-tender, normo-active bowel sounds, no masses, no rebound or guarding. BACK: Back is symmetrical on inspection and there is no deformity, no midline tenderness, no CVA tenderness. SKIN: no rashes and no bruising UPPER EXTREMITIES: upper extremities are grossly normal. LOWER EXTREMITIES: No pitting edema. NEURO EXAM: Normal sensorium, cranial nerves II-XII grossly intact, normal speech, no gross weakness of arms, no gross weakness of legs. Medical Decision & Procedures ER Provider Diagnostic Interpretation: Xray results have been interpreted by the radiologist and me. CHEST ONE VIEW PORTABLE CLINICAL HISTORY: Atypical chest pain COMPARISON STUDY: 06/14/2016 FINDINGS: The heart is at the upper limits of normal in size. There are postsurgical changes of a midline sternotomy. There is a left subclavian dual-chamber central venous pacemaker. There is no failure. There is no focal pulmonary consolidation. There are no pleural effusions.[ There is a comminuted proximal right humeral fracture. IMPRESSION: AP portable study. No acute findings. Electronically signed by: Danilo Bautista M.D. 12/18/2016 4:30 PM Dictated Date/Time: 12/18/2016 4:29 PM Laboratory Results Test 12/18/16 16:44 Immature Granulocyte % (Auto) 0.5 % White Blood Count 6.31 K/uL (4.8-10.8) Red Blood Count 5.23 M/uL (4.2-5.4) Hemoglobin 14.8 g/dL (12.0-16.0) Hematocrit 44.8 % (37-47) Mean Corpuscular Volume 85.7 fL (80-100) Mean Corpuscular Hemoglobin 28.3 pg (25-34) Mean Corpuscular Hemoglobin Concent 33.0 g/dl (32-36) Platelet Count 198 K/uL (130-400) Mean Platelet Volume 12.0 fL (7.4-10.4) Neutrophils (%) (Auto) 59.6 % Lymphocytes (%) (Auto) 28.8 % Monocytes (%) (Auto) 9.2 % Eosinophils (%) (Auto) 1.4 % Basophils (%) (Auto) 0.5 % Neutrophils # (Auto) 3.76 K/uL (1.4-6.5) Lymphocytes # (Auto) 1.82 K/uL (1.2-3.4) Monocytes # (Auto) 0.58 K/uL (0.11-0.59) Eosinophils # (Auto) 0.09 K/uL (0-0.5) Basophils # (Auto) 0.03 K/uL (0-0.2) Immature Granulocyte # (Auto) 0.03 K/uL (0.00-0.02) D-Dimer 250 ug/L FEU (0-500) Magnesium Level 2.2 mg/dl (1.8-2.4) Total Bilirubin 0.3 mg/dl (0.2-1) Aspartate Amino Transf (AST/SGOT) 14 U/L (15-37) Alanine Aminotransferase (ALT/SGPT) 25 U/L (12-78) Alkaline Phosphatase 102 U/L (45-117) Total Protein 6.7 gm/dl (6.4-8.2) Albumin 3.5 gm/dl (3.4-5.0) Globulin 3.2 gm/dl (2.5-4.0) Albumin/Globulin Ratio 1.1 (0.9-2) Laboratory results per my review. ECG Indication: chest pain Rate (beats per minute): 85 Rhythm: other (paced) Findings: no acute ischemic change, other (normal axis, normal QRS, normal QTC) ED Course 154: The patient was evaluated in room C3. A complete history and physical exam was performed. 174: I reevaluated the patient. She is feeling fine. She has not recurrent pain. I discussed the results and treatment plan with her. She verbalized understanding and agreement. She will be evaluated for further management. 1807: I discussed the patient's case [facility] She will evaluate the patient for further management. Medical Decision Differential diagnosis: Etiologies such as cardiac ischemia, aortic dissection, pulmonary embolism, pneumonia, pneumothorax, musculoskeletal, infections, pericarditis, myocarditis , esophageal rupture, gastrointestinal, as well as others were entertained. Medication Reconciliation: I attest that I have personally reviewed the patient' s current medication list. Blood pressure screening: Patient was found to have an elevated blood pressure and was referred to their primary doctor for recheck and further treatment. Pt with concerning story for angina and hx of prior. Per pt known blockage despite attempts at maximizing medical therapy. Pt with risk factors for ACS. No pain while in the ER and VS stable. BP elevated, doubt hypertensive urgency/ emergency. INR therapeutic, doubt PE. No hx of trauma or recent illness, doubt occult infectious etiology. Pt well appearing here despite complaints. Doubt dissection, pneumothorax, pneumonia, tamponade, perf, gi bleed. Consults Time Called: 1803 Consulting Phys[facility] Returned Call: 1807 I reviewed the patient's case with her. She will evaluate the patient for further management. Impression Primary Impression: Angina pectoris Additional Impression: Chest pain Scribe Attestation The scribe's documentation has been prepared under my direction and personally reviewed by me in its entirety. I confirm that the note above accurately reflects all work, treatment, procedures, and medical decision making performed by me. Departure Information Dispostion Being Evaluated By Hospitalist Prescriptions Isosorbide Mononitrate (Isosorbide Mononitrate ER) 60 Mg Tab 60 MG PO BID@0700,1500 for 30 Days, #60 TAB Prov: Ajay Caballero MD 12/19/16 Referrals Payam Escalona D.O. (PCP) Patient Instructions My [facility] Problem Qualifiers Additional Impression: Chest pain Chest pain type: chest pain due to myocardial ischemia Ischemic chest pain type: unspecified angina pectoris type Qualified Codes: I20.9 - Angina pectoris, unspecified
[2016-12-18] MEDS ORDERED: DICYCLOMINE HCL 20 MG TAB PO PRN (19:00)
[2016-12-18] MEDS ORDERED: NITROGLYCERIN 0.3 MG/1 TAB 100 TAB BTL UT PRN (19:00)
[2016-12-18] MEDS ORDERED: TRAMADOL HCL 50 MG TAB PO PRN (19:00)
[2016-12-18] MEDS ORDERED: PANTOprazole SOD 40 MG TAB PO PRN (19:00)
[2016-12-18 19:10] VITALS: BP 168/100; PULSE 96; TEMP 36.5; O2SAT 93; Ht 170.2 cm; Wt 61.4 kg
[2016-12-18] MEDS ORDERED: NURSING VERBAL MED ORDER ONE (20:15)
[2016-12-18] MEDS ORDERED: ASPIRIN 81 MG ECTAB PO SCH (21:00)
[2016-12-18] MEDS ORDERED: WARFARIN SOD 2.5 MG TAB PO SCH (21:00)
[2016-12-18] MEDS ORDERED: BusPIRone 15 MG TAB PO SCH (21:00)
[2016-12-18] MEDS ORDERED: TRAZODONE HCL 50 MG TAB PO SCH (21:00)
[2016-12-18] MEDS: CARVEDILOL 25 MG TAB PO SCH (21:18)
[2016-12-18] MEDS ORDERED: ISOSORBIDE MONONITRATE 60 MG TABCR PO ONE (21:30)
[2016-12-19 00:03] VITALS: BP 112/72; PULSE 63; TEMP 36.9; O2SAT 92
[2016-12-19 00:58] LABS: CKMB/CK RATIO 1.2 (0-3.0)
[2016-12-19 04:02] VITALS: BP 91/56; PULSE 60; TEMP 36.7; O2SAT 92
[2016-12-19] MEDS ORDERED: LEVOTHYROXINE 25 MCG TAB PO SCH (06:30)
[2016-12-19 07:07] VITALS: BP 110/66; PULSE 64; TEMP 36.3; O2SAT 95
[2016-12-19] MEDS: CARVEDILOL 25 MG TAB PO SCH (07:54)
[2016-12-19 08:21] LABS: HEMATOCRIT 40.2 % (37-47); MEAN CELL VOLUME 86.8 fL (80-100); MEAN CORPUSCULAR HEMOGLOBIN 29.2 pg (25-34); MEAN CORPUSCULAR HGB CONC 33.6 g/dl (32-36); MEAN PLATELET VOLUME 11.6 fL (7.4-10.4); PLATELET COUNT 196 K/uL (130-400); RED BLOOD COUNT 4.63 M/uL (4.2-5.4); WHITE BLOOD COUNT 5.26 K/uL (4.8-10.8)
[2016-12-19 08:29] LABS: INR 2.1 (0.9-1.1); PROTHROMBIN TIME (PATIENT) 23.3 SECONDS (9.0-12.0)
[2016-12-19 08:47] LABS: BLOOD UREA NITROGEN 17 mg/dl (7-18); CARBON DIOXIDE 30 mmol/L (21-32); CHLORIDE 106 mmol/L (98-107); CHOLESTEROL 314 mg/dl (0-200); CREATININE 0.87 mg/dl (0.60-1.20); GLUCOSE 129 mg/dl (70-99); POTASSIUM 3.5 mmol/L (3.5-5.1); SODIUM 142 mmol/L (136-145)
[2016-12-19 08:59] LABS: CALCIUM 9.5 mg/dl (8.5-10.1)
[2016-12-19] MEDS ORDERED: HYDROCORTISONE 10 MG TAB PO SCH (09:00)
[2016-12-19] MEDS ORDERED: AMLODIPINE BESYLATE 5 MG TAB PO SCH (09:00)
[2016-12-19] MEDS ORDERED: ISOSORBIDE MONONITRATE 60 MG TABCR PO SCH ×2 (09:00→15:00)
[2016-12-19 09:04] LABS: CHOLESTEROL/HDL RATIO 9.8; CKMB/CK RATIO 1.4 (0-3.0); HDL CHOLESTEROL 32 mg/dl; TRIGLYCERIDES 550 mg/dl (0-150)
--- NOTE | 2016-12-19 10:36 | ECHOCARDIOGRAM REPORT ---
*NOTICE TO RECEIVING DEMOCRAT AGENCY This information is strictly Confidential and protected under [place] law. [place] law prohibits you from making any further disclosure of this information unless further disclosure is expressly permitted by the written consent of the person to whom it pertains or is authorized by law. A general authorization for the release of medical or other information is not sufficient for this purpose. Hospital accepts no responsibility if the information is made available to any other person, INCLUDING THE PATIENT. Interpretation Summary * Name: PENNIE BARRAZA Study Date: 12/19/2016 09:28 AM BP: 110/66 mmHg * Patient Location: .[facility]\S\N278\S\2 HR: 77 * : 1940 (M/d/yyyy) Gender: Female Height: 67 in * Age: 76 yrs Ethnicity: CA Weight: 198 lb * Ordering Physician: Susan Waddell * Referring Physician: Isaias Shaffer D.O. * Performed By: Maribel Lennon RCS * * Reason For Study: CHEST PAIN * BSA: 2.0 m2 * -- Conclusions -- * Normal LV chamber size with mild concentric LVH. * Normal LV systolic function, EF 55-60%. * No segmental left ventricular wall motion abnormalities are noted. * Grade II diastolic dysfunction. * Aortic valve sclerosis mild, without significant aortic valvular stenosis. * Mild tricuspid regurgitation. * Mild left atrial enlargement. Procedure Details * A complete two-dimensional transthoracic echocardiogram was performed (2D, M-mode, Doppler and color flow Doppler). Left Ventricle * The left ventricle is normal in size. * There is mild concentric left ventricular hypertrophy. * Ejection Fraction = 55-60%. * Left ventricular systolic function is normal. * No segmental left ventricular wall motion abnormalities are noted. * The left ventricular wall motion is normal. Right Ventricle * The right ventricular cavity size is normal (basal dimension <4.2 cm in right ventricular apical 4-chamber view). * There is a pacemaker lead in the right ventricle. * The right ventricular systolic function is normal as assessed by tricuspid annular plane systolic excursion (TAPSE) (normal >1.5 cm). Atria * The left atrium is mildly dilated. * Right atrial size is normal. * No ASD detected; PFO is not assessed. Mitral Valve * The mitral valve is normal in structure and function. Tricuspid Valve * The tricuspid valve anatomy is normal. * There is no tricuspid stenosis. * There is mild tricuspid regurgitation. Aortic Valve * The aortic valve is tricuspid. The leaflet thickness if normal. There is no aortic stenosis, and no significant insufficiency. * Aortic valve sclerosis mild, without significant aortic valvular stenosis. * No hemodynamically significant valvular aortic stenosis. * There is no significant aortic regurgitation. Pulmonic Valve * The pulmonary valve is not well seen, but the Doppler examination is normal without significant regurgitation or stenosis. Great Vessels * The aortic root and proximal ascending aorta are normal sized. Pericardium/Pleural * There is no pericardial effusion. Left Ventricular Diastolic Function * Diastolic dysfunction, Grade II (pseudonormalization pattern). MMode 2D Measurements and Calculations IVSd 1.4 cm IVSs 1.4 cm LVIDd 4.5 cm LVIDs 3.1 cm LVPWd 1.3 cm LVPWs 1.2 cm IVS/LVPW 1.1 FS 30.6 % EDV(Teich) 91.6 ml ESV(Teich) 38.2 ml EF(Teich) 58.3 % EDV(cubed) 90.0 ml ESV(cubed) 30.0 ml EF(cubed) 66.6 % % IVS thick -0.41 % % LVPW thick -7.43 % LV mass(C)d 231.9 grams LV mass(C)dI 115.2 grams/m\S\2 LV mass(C)s 129.2 grams LV mass(C)sI 64.2 grams/m\S\2 SV(Teich) 53.4 ml SI(Teich) 26.5 ml/m\S\2 SV(cubed) 60.0 ml SI(cubed) 29.8 ml/m\S\2 Ao root diam 3.2 cm Ao root area 8.2 cm\S\2 LA dimension 4.8 cm LA/Ao 1.5 LVOT diam 2.0 cm LVOT area 3.2 cm\S\2 LVAd ap4 26.8 cm\S\2 LVLd ap4 7.5 cm EDV(MOD-sp4) 76.9 ml EDV(sp4-el) 81.6 ml LVAs ap4 16.0 cm\S\2 LVLs ap4 6.4 cm ESV(MOD-sp4) 33.9 ml ESV(sp4-el) 33.6 ml EF(MOD-sp4) 55.9 % EF(sp4-el) 58.7 % LVAd ap2 25.3 cm\S\2 LVLd ap2 7.3 cm EDV(MOD-sp2) 73.6 ml EDV(sp2-el) 74.6 ml LVAs ap2 14.7 cm\S\2 LVLs ap2 5.9 cm ESV(MOD-sp2) 30.5 ml ESV(sp2-el) 31.4 ml EF(MOD-sp2) 58.6 % EF(sp2-el) 57.9 % LVLd %diff -2.24 % EDV(MOD-bp) 75.9 ml LVLs %diff -10.10 % ESV(MOD-bp) 33.3 ml EF(MOD-bp) 56.1 % SV(MOD-sp4) 43.0 ml SI(MOD-sp4) 21.3 ml/m\S\2 SV(MOD-sp2) 43.1 ml SI(MOD-sp2) 21.4 ml/m\S\2 SV(MOD-bp) 42.5 ml SI(MOD-bp) 21.1 ml/m\S\2 SV(sp4-el) 47.9 ml SI(sp4-el) 23.8 ml/m\S\2 SV(sp2-el) 43.2 ml SI(sp2-el) 21.5 ml/m\S\2 Doppler Measurements and Calculations MV E max honey 81.4 cm/sec MV A max honey 76.6 cm/sec MV E/A 1.1 MV P1/2t max honey 84.7 cm/sec MV P1/2t 60.8 msec MVA(P1/2t) 3.6 cm\S\2 MV dec slope 408.0 cm/sec\S\2 MV dec time 0.33 sec Ao V2 max 133.5 cm/sec Ao max PG 7.1 mmHg Ao max PG (full) 0.25 mmHg CORINNA(V,A) 3.2 cm\S\2 CORINNA(V,D) 3.2 cm\S\2 LV V1 max PG 6.9 mmHg LV V1 max 131.2 cm/sec PA V2 max 104.8 cm/sec PA max PG 4.4 mmHg PI max honey 174.2 cm/sec PI max PG 12.1 mmHg PI dec slope 95.7 cm/sec\S\2 PI P1/2t 533.1 msec TR max honey 225.4 cm/sec
--- NOTE | 2016-12-19 11:14 | CARDIOLOGY CONSULTATION ---
DATE OF CONSULTATION: 12/19/2016 DATE OF CONSULTATION: 12/19/2016. CONSULTATION REQUESTED BY: Dr. Waddell. REASON FOR CONSULTATION: Chest pain. HISTORY OF PRESENT ILLNESS: Mrs. Lozoya is a 76-year-old very cardiovascular complex woman who has been following with me as an outpatient for history of angina. She presented to [facility] on 12/18/2016 with a complaint of worsening chest pain. Several weeks ago I saw the patient in review in followup of a nuclear stress test which was positive. At that time, cardiac catheterization was recommended; however, the patient refused given her previous reaction to contrast dye, so after a lengthy discussion, medical therapy was agreed upon. She was started on Imdur 30 mg daily. She states initially she was doing very well with the medication and she was chest pain free for several weeks; however, eventually her activity related angina slowly started to creep back in and she was seen by Dr. Mercado of our practice and coverage of myself and her Imdur was increased to 60 mg daily. Once again her symptoms improved for several days, but then slowly started to increase again. Then on the , she woke up that morning and she states that she had some activity related angina. She took a sublingual nitroglycerin which did relieve the pain. However, she did not take her Imdur at that time. She claims to have taken all of her other medications though, then as the day went on she had recurrent activity related angina and she came into the Emergency Department. In the Emergency Department, she was given I believe nitro paste in the ER and she was pain free. She was then admitted to telemetry. She had no recurrent chest discomfort overnight. Cardiac enzymes were unremarkable. EKG was unremarkable. On the morning of before she took any medications she got up to use the bathroom and she did once again have recurrent angina which is the same as before. The patient has a lengthy and somewhat difficult to follow cardiac history. Her cardiac catheterization interventions and bypass surgeries have been done at [facility] in the past. Her most recent catheterization, the patient states she had an anaphylactic reaction to contrast dye and she required intubation in the ICU setting for several days. Unfortunately, several attempts to obtain these medical records from [place] have been unsuccessful from my office. Again the patient has been offered catheterization at [facility] in [place] with significant prep prior to and she has declined multiple times. Also of note, the patient is very noncompliant with her medications and she decides herself which medication she will take in a day. PAST SURGICAL HISTORY: 1. Coronary bypass grafting surgery x3 with unknown grafts along with PCI x3 again unknown grafts. 2. Upper endoscopy. 3. Eyelid surgery. 4. Cholecystectomy. 5. Enterocele repair. 6. Hemorrhoidectomy. 7. Appendectomy. 8. Tonsil and adenoidectomy. 9. Hysterectomy. MEDICAL ILLNESSES: 1. Coronary artery disease with chronic stable angina. 2. Medication noncompliance. 3. Sick sinus syndrome, status post permanent pacemaker placement. 4. Persistent atrial fibrillation on chronic Coumadin therapy. 5. 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 6. Hypertension. 7. Hyperlipidemia with refusal to take statin therapy. 8. Adrenal insufficiency on chronic steroids. FAMILY HISTORY: Noncontributory. SOCIAL HISTORY: The patient denies any alcohol, tobacco or recreational drug use. She is . 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 ALLERGIES: 1. CONTRAST AGENTS. 2. PREDNISONE. 3. RANITIDINE. 4. LOSARTAN. 5. ROSIGLITAZONE. MEDICATIONS AN OUTPATIENT: 1. Aspirin 81 mg daily. 2. Amlodipine 5 mg daily. 3. Coreg 25 mg b.i.d. 4. Imdur 60 mg daily. 5. Sublingual nitroglycerin p.r.n. 6. Hydrocortisone daily. 7. BuSpar b.i.d. 8. Trazodone as needed. 9. Levoxyl daily. 10. Omeprazole daily. PHYSICAL EXAMINATION: VITALS: Temperature 36.3, pulse 64, respiratory rate 12, blood pressure 110/66. GENERAL: Awake, alert, oriented x3 in no acute distress. HEAD, EYES, EARS, NOSE, AND THROAT: Normocephalic, atraumatic. Pupils equal, round, and reactive to light and accommodation. Extraocular muscles intact. Anicteric sclerae. Moist mucous membranes. NECK: No JVD, no bruit. CARDIOVASCULAR: Irregularly irregular, unable to appreciate any murmurs, rubs or gallops. PULMONARY: Clear to auscultation bilaterally. No rales, rhonchi, or wheezing. ABDOMEN: Bowel sounds x4, soft. No rebound, guarding, tenderness. No organomegaly. EXTREMITIES: No clubbing, cyanosis or edema. +2 pedal pulses bilaterally. SKIN: Warm and dry. TEST RESULTS: Troponin negative x3. CPK of 67 followed by 65. Sodium 142, potassium 3.5, BUN 17, creatinine 0.9, triglycerides 550, total cholesterol 314, LDL is unable to be calculated, HDL 32. A 12-lead EKG performed in the Emergency Department independently reviewed at this time shows an atrially paced rhythm, normal axis, normal intervals, poor R-wave progression across the precordium, no active ischemia, no significant change compared to previous studies. Lexiscan nuclear stress test performed 11/21/2016 was read as abnormal Lexiscan nuclear stress test suggesting lateral and basal inferolateral ischemia. IMPRESSIONS: 1. Chronic stable angina. 2. Medical noncompliance. 3. Uncontrolled hypertension with possible hypertensive urgency component. 4. Complex cardiovascular disease. 5. Medical noncompliance. 6. Hypertension. 7. Dyslipidemia. 8. Adrenal insufficiency on chronic steroids. 9. Questionable anaphylactic reaction to contrast agents. RECOMMENDATIONS: Once again, the pathophysiology of her atherosclerotic disease was discussed at great lengths with Mrs. Lozoya and it was recommended that cardiac catheterization be performed at [facility] in [place] for what would be considered a high risk procedure. She would require significant steroid prep, but once again, the patient refuses. She was counseled the only other option at this point would be medical management for pain control. She was counseled this would not decrease her mortality, it would only be for symptom control. She states that she understands, her main concern is to get home to her right now, so at this point I will increase her Imdur 60 mg b.i.d. She will be continued on her amlodipine as well as her Coreg. Of note, the Coreg was attempted to be changed for greater beta blockade in the past; however, the patient did not like the metoprolol and went back to Coreg on her own. Once again, the patient was counseled at great lengths and in great detail and her need for medical compliance and she states that she will take the medicines that she thinks will help. RODOLFO
[2016-12-19 11:21] VITALS: BP 100/66; PULSE 71; TEMP 36.8; O2SAT 91
--- NOTE | 2016-12-19 13:15 | Progress Note ---
Internal Med Progress Note Date of Service: Dec 19, 2016. Provider Documentation: SUBJECTIVE: Seen and examined at bedside. Currently denies any chest pain, SOB, palpitations. Eager to get discharged. Refuses to stay to observe with change in medication dosage. Refuses to get Cath as previously had anaphylaxis secondary to contrast. OBJECTIVE: Vital Signs-as noted below Physical Exam: General Appearance:Moderately built and nourished, no apparent distress Head: normocephalic, Atraumatic Eyes: normal inspection, EOMI, PERRL Neck: supple, Trachea midline Respiratory/Chest: Normal breath sounds, CTA Cardiovascular: S1, S2, No murmur Abdomen/GI:Soft, Non tender, Bowel sounds present Extremities/Musculoskelatal:normal inspection, 1+ edema Neurologic/Psych:AAOX3, grossly no focal neurological deficits Skin: normal color, warm Lab data as noted below. ASSESSMENT & PLAN: CAD Recent Lexiscan Nc stress suggestive ischemia on Cfx and RCA distribution S/p CABG approx 11 yrs back refused to have cardiac cath done due to contrast dye allergy Continue Aspirin, statin, Coreg, Imdur Imdur dose increased to 60mg BID per cardiology recommendations ECHO:No segmental left ventricular wall motion abnormalities Appreciate cardiology input HYPOTHYROIDISM : cont Levothyroxine HTN : cont on Coreg , Norvasc , Imdur ADRENAL INSUFFICIENCY : on Hydrocortisone 5 mg daily follows with Endocrine Dr Burden HX OF AFIB /PE /DVT : rate controlled on Coreg on Coumadin INR therapeutic SICK SINUS SYNDROME : S/P Pacemaker placement CODE STATUS FULL CODE DVT PROPHYLAXIS : INR therapeutic Continue Coumadin DISPOSITION : Plan to discharge home today Follow up with on 12/22/16 at 10:25AM Follow up with Cardiology on 01/05/17 at 9:25AM at [facility] Also follow up with your sas bi developer in [place] as advised Off Note: Reports doesn't want to be given any new script for Imdur and says she can take the ones at home with increased dose PROCEDURES: ECHO: * Normal LV chamber size with mild concentric LVH. * Normal LV systolic function, EF 55-60%. * No segmental left ventricular wall motion abnormalities are noted. * Grade II diastolic dysfunction. * Aortic valve sclerosis mild, without significant aortic valvular stenosis. * Mild tricuspid regurgitation. * Mild left atrial enlargement. Vital Signs: Date Time Temp Pulse Resp B/P (MAP) Pulse Ox O2 Delivery O2 Flow Rate FiO2 12/19/16 12:30 Room Air 12/19/16 11:21 36.8 71 18 100/66 (77) 91 Room Air 12/19/16 08:53 Room Air 12/19/16 07:45 Room Air 12/19/16 07:07 36.3 64 18 110/66 (81) 95 Room Air 12/19/16 04:02 36.7 60 20 91/56 (68) 92 Room Air 12/19/16 04:00 Room Air 12/19/16 00:03 36.9 63 20 112/72 (85) 92 Room Air 12/19/16 00:00 Room Air 12/18/16 20:00 Room Air 12/18/16 19:10 36.5 96 18 168/100 93 Room Air 12/18/16 18:28 67 20 167/95 96 12/18/16 17:14 150/94 12/18/16 17:07 67 21 93 12/18/16 16:52 69 16 93 12/18/16 16:37 65 18 93 12/18/16 16:22 64 17 93 12/18/16 16:07 76 16 93 12/18/16 15:52 78 21 96 12/18/16 15:46 95 Room Air 12/18/16 15:43 85 12/18/16 15:43 36.7 81 21 196/119 97 Room Air 12/18/16 15:41 196/119 12/18/16 15:38 Room Air Lab Results: Results Past 24 Hours Test 12/18/16 16:44 12/19/16 00:29 12/19/16 08:12 Range/Units White Blood Count 6.31 5.26 4.8-10.8 K/uL Red Blood Count 5.23 4.63 4.2-5.4 M/uL Hemoglobin 14.8 13.5 12.0-16.0 g/dL Hematocrit 44.8 40.2 37-47 % Mean Corpuscular Volume 85.7 86.8 80-100 fL Mean Corpuscular Hemoglobin 28.3 29.2 25-34 pg Mean Corpuscular Hemoglobin Concent 33.0 33.6 32-36 g/dl Platelet Count 198 196 130-400 K/uL Mean Platelet Volume 12.0 11.6 7.4-10.4 fL Neutrophils (%) (Auto) 59.6 % Lymphocytes (%) (Auto) 28.8 % Monocytes (%) (Auto) 9.2 % Eosinophils (%) (Auto) 1.4 % Basophils (%) (Auto) 0.5 % Neutrophils # (Auto) 3.76 1.4-6.5 K/uL Lymphocytes # (Auto) 1.82 1.2-3.4 K/uL Monocytes # (Auto) 0.58 0.11-0.59 K/uL Eosinophils # (Auto) 0.09 0-0.5 K/uL Basophils # (Auto) 0.03 0-0.2 K/uL RDW Standard Deviation 46.4 47.7 36.4-46.3 fL RDW Coefficient of Variation 14.7 15.0 11.5-14.5 % Immature Granulocyte % (Auto) 0.5 % Immature Granulocyte # (Auto) 0.03 0.00-0.02 K/uL Prothrombin Time 26.2 23.3 9.0-12.0 SECONDS Prothromb Time International Ratio 2.4 2.1 0.9-1.1 D-Dimer 250 0-500 ug/L FEU Sodium Level 142 142 136-145 mmol/L Potassium Level 3.5 3.5 3.5-5.1 mmol/L Chloride Level 107 106 98-107 mmol/L Carbon Dioxide Level 28 30 21-32 mmol/L Anion Gap 7.0 6.0 3-11 mmol/L Blood Urea Nitrogen 16 17 7-18 mg/dl Creatinine 0.79 0.87 0.60-1.20 mg/dl Est Creatinine Clear Calc Drug Dose 68.8 52.5 ml/min Estimated GFR () 83.7 74.5 Estimated GFR (Non- 72.2 64.3 BUN/Creatinine Ratio 20.2 20.0 10-20 Random Glucose 103 129 70-99 mg/dl Calcium Level 9.1 9.5 8.5-10.1 mg/dl Magnesium Level 2.2 1.8-2.4 mg/dl Total Bilirubin 0.3 0.2-1 mg/dl Aspartate Amino Transf (AST/SGOT) 14 15-37 U/L Alanine Aminotransferase (ALT/SGPT) 25 12-78 U/L Alkaline Phosphatase 102 45-117 U/L Troponin I < 0.015 < 0.015 < 0.015 0-0.045 ng/ml Total Protein 6.7 6.4-8.2 gm/dl Albumin 3.5 3.4-5.0 gm/dl Globulin 3.2 2.5-4.0 gm/dl Albumin/Globulin Ratio 1.1 0.9-2 Total Creatine Kinase 67 65 26-192 U/L Creatine Kinase MB 0.8 0.9 0.5-3.6 ng/ml Creatine Kinase MB Ratio 1.2 1.4 0-3.0 Triglycerides Level 550 0-150 mg/dl Cholesterol Level 314 0-200 mg/dl HDL Cholesterol 32 mg/dl LDL Cholesterol, Calculated mg/dl VLDL Cholesterol, Calculated mg/dl Cholesterol/HDL Ratio 9.8 Thyroid Stimulating Hormone (TSH) 3.310 0.300-4.500 uIu/ml
[2016-12-19] MEDS ORDERED: IMDSR60 PO (13:46)
--- NOTE | 2016-12-19 13:48 | Discharge Summary ---
Discharge Summary Date of Service Dec 19, 2016. Discharge Summary Admission Date: Dec 18, 2016 at 18:11 Discharge Date: Dec 19, 2016 Discharge Disposition: Home Principal Diagnosis: Chest Pain Likely secondary to CAD Procedures: CXR: No acute findings. ECHO: * Normal LV chamber size with mild concentric LVH. * Normal LV systolic function, EF 55-60%. * No segmental left ventricular wall motion abnormalities are noted. * Grade II diastolic dysfunction. * Aortic valve sclerosis mild, without significant aortic valvular stenosis. * Mild tricuspid regurgitation. * Mild left atrial enlargement. Consultations: Cardiology Pending Studies/Follow-Up: .Follow up with on 12/22/16 at 10:25AM Follow up with Cardiology on 01/05/17 at 9:25AM at [facility] Also follow up with your special education coordinator in [place] as advised Medication Reconciliation New Medications: Isosorbide Mononitrate (Isosorbide Mononitrate ER) 60 Mg Tab 60 MG PO BID@0700,1500 for 30 Days, #60 TAB Continued Medications: Amlodipine Besylate (Amlodipine Besylate) 5 Mg Tab 5 MG PO DAILY, TAB Aspirin (Aspirin Ec) 81 Mg Tab 81 MG PO HS PT WILL CHECK WITH PCP FOR INSTRUCTIONS Buspirone Hcl (Buspar) 15 Mg Tab 15 MG PO BID, TAB Carvedilol (Coreg) 25 Mg Tab 25 MG PO BID, TAB Celecoxib (CeleBREX) 200 Mg Cap 200 MG PO PRN for Pain, #90 Dicyclomine Hcl (Bentyl) 10 Mg Cap 20 MG PO BID PRN for ABDOMINAL PAIN, CAP Hydrochlorothiazide (Hctz) 12.5 Mg Cap 1 CAP PO QAM PRN for swelling for 30 Days, #30 CAP 5 Refills Hydrocortisone (Cortef) 5 Mg Tab 5 MG PO Q2D, TAB Ibuprofen (Advil) 200 Mg Tab 200-600 MG PO Q4H PRN for Pain, TAB Levothyroxine Sodium (Levothyroxine Sodium) 25 Mcg Tab 25 MCG PO DAILY, #90 Nitroglycerin (Nitrostat) 0.3 Mg Sub 0.3 MG UT PRN PRN for Chest Pain, BTL Omeprazole (Prilosec) 20 Mg Cap 20 MG PO DAILY PRN for Dyspepsia, #90 Tramadol (Ultram) 50 Mg Tab 50 MG PO QID PRN for Pain, TAB Trazodone Hcl (Trazodone) 50 Mg Tab 50 MG PO HS, TAB Warfarin Sod (Jantoven) 2.5 Mg Tab 2.5 MG PO QPM, TAB PT WILL CHECK WITH PCP/[facility] (ERIKA REYNA)FOR INSTRUCTIONS BEFORE SURGERY Discontinued Medications: Isosorbide Mononitrate Ext Rel (Imdur Ext Rel) 60 Mg Ertab 60 MG PO QAM, TAB Admission Information HPI (per Admitting provider): this is a 76 yo female with extensive cardiac hx of 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 Pt has been having anginal symptom with activity for approx X3 week , symptom has been progressively worsen to the point it is limiting her daily activities She has Lexiscan Nc stress done on 11/21 showed : Lateral and basilar inferior lateral ischemia , gated images reveal normal myocardial thickening and wall motion , EF > 70 % pt was offered for Cardiac Cath -refused with concern for possible adverse reaction /allergic reaction to contrast dye she experienced during prior CABG surgery in [place] she was started on Imdur 30 mg daily Pt had improvement of Angina symptom on exertion for few days , then symptoms return -gets substernal chest heaviness with activity , gets relief with rest Had office visit with Dr Mercado on -was encouraged again for cardiac cath possibly needs to be done at [place] pt refused for cardiac intervention Imdur dose increased to 60 mg daily script given for SL nitro PRN pt is asked to come to ED with any symptom of worsening of chest pain or SOB today -her symptom was persisted , minimum activity caused substernal chest discomfort pt arrived to ED pain was relieved with SL nitro during my time of interview , pt was chest pain free, comfortable mentions she never gets pain or SOB if stays in bed or sitting had discussion regarding need for Cardiac cath for possible worsening of coronary occlusion as noted in Last Nc stress test should be done in [place] for her concern for severe dye allergy pt is still reluctant for Cardiac cath , does not want to go to [place] also mentions her reluctance to take Prednisone for prep -as it made her sick in stomach ( pt has been taking Cortef /Hydrocortisone 5 mg PO Daily per Dr Carter / Endocrine for possible adrenal insufficiency -has not had any problem with PO steroid ) pt mentions she has not taken Imdur 60 mg today as she took SL nitro Physical Exam (per Admitting): General Appearance: no apparent distress Eyes: sclerae normal Neck: thyroid normal, no carotid bruits Respiratory/Chest: chest non-tender, lungs clear, no respiratory distress Cardiovascular: regular rate, rhythm, no JVD Abdomen/GI: normal bowel sounds, non tender, soft Extremities/Musculoskelatal: + pedal edema (+ 1-2 pedal edema on left leg / ankle, normal exam on right ) Neurologic/Psych: no motor/sensory deficits, alert, oriented x 3 Skin: normal color, warm/dry, no rash Hospital Course CAD Recent Lexiscan Nc stress suggestive ischemia on Cfx and RCA distribution S/p CABG approx 11 yrs back refused to have cardiac cath done due to contrast dye allergy Continue Aspirin, statin, Coreg, Imdur Imdur dose increased to 60mg BID per cardiology recommendations ECHO:No segmental left ventricular wall motion abnormalities Appreciate cardiology input HYPOTHYROIDISM : cont Levothyroxine HTN : cont on Coreg , Norvasc , Imdur ADRENAL INSUFFICIENCY : on Hydrocortisone 5 mg daily follows with Endocrine Dr Burden HX OF AFIB /PE /DVT : rate controlled on Coreg on Coumadin INR therapeutic SICK SINUS SYNDROME : S/P Pacemaker placement CODE STATUS FULL CODE DVT PROPHYLAXIS : INR therapeutic Continue Coumadin DISPOSITION : Plan to discharge home today Follow up with on 12/22/16 at 10:25AM Follow up with Cardiology on 01/05/17 at 9:25AM at [facility] Also follow up with your special education coordinator in [place] as advised Off Note: Reports doesn't want to be given any new script for Imdur and says she can take the ones at home with increased dose PROCEDURES: ECHO: * Normal LV chamber size with mild concentric LVH. * Normal LV systolic function, EF 55-60%. * No segmental left ventricular wall motion abnormalities are noted. * Grade II diastolic dysfunction. * Aortic valve sclerosis mild, without significant aortic valvular stenosis. * Mild tricuspid regurgitation. * Mild left atrial enlargement. Total time spent on discharge = 32 minutes This includes examination of the patient, discharge planning, medication reconciliation, and communication with other providers. Discharge Instructions Discharge Instructions Date of Service Dec 19, 2016. Admission Reason for Admission: Chest Pain Discharge Discharge Diagnosis / Problem: Chest Pain Likely secondary to CAD Discharge Goals Goal(s): Decrease discomfort, Improve function Activity Recommendations Activity Limitations: resume your previous activity Exercise/Sports Limitations: as tolerated Instructions / Follow-Up Instructions / Follow-Up .Follow up with on 12/22/16 at 10:25AM Follow up with Cardiology on 01/05/17 at 9:25AM at [facility] Also follow up with your special education coordinator in [place] as advised Current Hospital Diet Patient's current hospital diet: AHA Diet (Heart Healthy) Discharge Diet Recommended Diet: AHA Diet (Heart Healthy) Pending Studies Studies pending at discharge: no Laboratory Results Lipid Panel Test 12/19/16 08:12 Range/Units Triglycerides Level 550 H 0-150 mg/dl Cholesterol Level 314 H 0-200 mg/dl HDL Cholesterol 32 mg/dl Cholesterol/HDL Ratio 9.8 LDL Cholesterol, Calculated mg/dl Medical Emergencies . Who to Call and When: Medical Emergencies: If at any time you feel your situation is an emergency, please call 911 immediately. . Non-Emergent Contact Non-Emergency issues call your: Primary Care Provider, Director Of Manufacturing Call Non-Emergent contact if: you have a fever, your pain is not controlled, your pain is worsening, your pain is unusual for you, you have any medication questions . . "Provider Documentation" section prepared by Ajay Caballero. . VTE Core Measure Inpt VTE Proph given/why not?: Warfarin (Coumadin)
[2016-12-19 13:53] VITALS: BP 100/66; PULSE 71; TEMP 36.8; O2SAT 91
== END 2016-12-19 14:30 | disposition home or self-care (01) ==
LOC: EDBD 15:37 → C.EDC 15:37 → C.MED 18:11 → ENRESERV 18:32
PROVIDERS: ADMIT Hospitalist; ATTEND Internal Medicine
DX: R07.9 Chest pain, unspecified (principal); I48.91 Unspecified atrial fibrillation; I25.10 Atherosclerotic heart disease of native coronary artery without angina pectoris; I10 Essential (primary) hypertension; E78.5 Hyperlipidemia, unspecified; I49.5 Sick sinus syndrome; K21.9 Gastro-esophageal reflux disease without esophagitis; E03.9 Hypothyroidism, unspecified; Z95.0 Presence of cardiac pacemaker; Z86.718 Personal history of other venous thrombosis and embolism; Z86.711 Personal history of pulmonary embolism; Z95.5 Presence of coronary angioplasty implant and graft; Z79.01 Long term (current) use of anticoagulants; Z79.82 Long term (current) use of aspirin; Z79.899 Other long term (current) drug therapy; E27.40 Unspecified adrenocortical insufficiency

== ENCOUNTER → 2017-06-11 | Outpatient (CLI) | payer OTHER ==
[~2017-06-11] MED LIST changes: +BUSP15TA70 PO; +HYDR5TAB57 PO; +IBUP-1050 PO; +IMDSR60 PO; -LORA-741 PO; +NTRSL3 UT; -OXYC1TAB3 PO; +TRAM-10 PO; +TRAZ50TA35 PO; -TYLOTC500 PO; -WARF5TAB7 PO
--- NOTE | 2017-06-11 16:01 | DIAGNOSTIC IMAGING REPORT ---
CT OF THE CERVICAL SPINE WITHOUT CONTRAST CLINICAL HISTORY: Neck pain. Right shoulder pain. No recent trauma. COMPARISON STUDY: Cervical spine CT August 03, 2016. TECHNIQUE: Helical axial images of the cervical spine were obtained without IV contrast. Sagittal and coronal reconstructions were viewed. A dose lowering technique was utilized adhering to the principles of ALARA. FINDINGS: There is reversal of the normal cervical lordosis. Craniocervical junction is intact. No acute cervical spine fracture is identified. There is no suspicious lesion within the cervical spine by CT. The appearance of the cervical spine is similar to exam of June 11, 2017. Paravertebral soft tissues are unremarkable. Moderate multilevel degenerative disc disease and facet arthrosis is present. Central canal and neural foramen are suboptimally assessed by CT. However, there is no convincing evidence for severe central canal stenosis. There is suspected mild central canal stenosis at C5-C6 and C6-C7. There is suspected moderate multilevel neural foraminal stenosis. No large disc herniation is identified by CT. IMPRESSION: 1. No acute cervical spine fracture or subluxation. 2. Moderate multilevel degenerative disc disease and facet arthrosis most pronounced at C5-C6 and C6-C7. Suboptimal evaluation of central canal and neural foramen given CT technique but no evidence for severe central canal stenosis. Suspected mild central canal stenosis at C5-C6 and C6-C7 with moderate multilevel neural foraminal stenosis. Electronically signed by: Jefferson Mahoney M.D. 06/11/2017 3:59 PM Dictated Date/Time: 06/11/2017 3:36 PM
== END | disposition home or self-care (01) ==
LOC: C.CTS 15:13
PROVIDERS: ATTEND Physician Assistant Medical
DX: M25.511 Pain in right shoulder (principal); M50.20 Other cervical disc displacement, unspecified cervical region

== ENCOUNTER 2018-02-18 13:38 | Emergency (ER) | payer OTHER ==
[~2018-02-18] VITALS: Ht 170.2 cm; Wt 95.0 kg
[~2018-02-18 13:38] MED LIST changes: -BUSP15TA70 PO; -CLB/200 PO; +FURO-85 PO; -HYDR12.56 PO; -HYDR5TAB57 PO; -IBUP-1050 PO; +IBUP-1277 PO; -IMDSR60 PO; +ISOS60TA25 PO; -LEVO25TA5 PO; +LEVO50TA6 PO; +Lovenox SC; +NTRGSL/4 UT; -NTRSL3 UT; -OMEP20CA9 PO; +OXYC-90 PO; +PRLSR20 PO; -TRAM-10 PO; -TRAZ50TA35 PO; -WARF2.5T8 PO; +WARF5TAB90 PO
[2018-02-18 13:44] VITALS: TEMP 36.4; Ht 170.2 cm; Wt 95.0 kg
[2018-02-18] MEDS ORDERED: ONDANSETRON INJ 2 MG/ML 2 ML VIAL IV STA (14:09)
[2018-02-18] MEDS ORDERED: SODIUM CHLORIDE 0.9% 1000ML 1,000 ML IV STA (14:09)
[2018-02-18] MEDS ORDERED: KETOROLAC TROMETHAMINE 30 MG/ML VIAL IV STA (14:09)
[2018-02-18] MEDS ORDERED: SODIUM CHLORIDE 0.9% 500ML 500 ML IV STA (14:09)
[2018-02-18 14:31] LABS: BASO % 0.3 %; BASO ABS # 0.03 K/uL (0-0.2); EOS % 1.5 %; EOS ABS # 0.13 K/uL (0-0.5); HEMATOCRIT 46.1 % (37-47); HEMOGLOBIN 15.6 g/dL (12.0-16.0); IG# 0.03 K/uL (0.00-0.02); LYMPH % 18.1 %; LYMPH ABS # 1.58 K/uL (1.2-3.4); MEAN CORPUSCULAR HEMOGLOBIN 30.1 pg (25-34); MEAN CORPUSCULAR HGB CONC 33.8 g/dl (32-36); MONO % 9.4 %; MONO ABS # 0.82 K/uL (0.11-0.59); NEUT % 70.4 %; NEUT ABS # 6.12 K/uL (1.4-6.5); PLATELET COUNT 229 K/uL (130-400); RED CELL DISTRIBUTION WIDTH CV 14.1 % (11.5-14.5); RED CELL DISTRIBUTION WIDTH SD 46.2 fL (36.4-46.3); WHITE BLOOD COUNT 8.71 K/uL (4.8-10.8)
[2018-02-18 14:36] LABS: INR 1.9 (0.9-1.1); PTT PATIENT 30.1 SECONDS (21.0-31.0)
[2018-02-18 14:39] LABS: CALCIUM 10.4 mg/dl (8.5-10.1); CREATININE 1.09 mg/dl (0.60-1.20); POTASSIUM 4.1 mmol/L (3.5-5.1)
--- NOTE | 2018-02-18 15:24 | DIAGNOSTIC IMAGING REPORT ---
CT SCAN OF THE ABDOMEN AND PELVIS WITHOUT CONTRAST CLINICAL HISTORY: Right flank pain COMPARISON STUDY: 11/03/2009 TECHNIQUE: CT scan of the abdomen and pelvis was performed from the lung bases to the proximal femurs. Images are reviewed in the axial, sagittal, and coronal planes. IV contrast was not administered for this examination. A dose lowering technique was utilized adhering to the principles of ALARA. CT DOSE: 728.33 mGy.cm FINDINGS: Lower chest: There are coronary artery calcifications. There are dependent atelectatic changes. Liver: The unenhanced liver is normal in size, contour, and attenuation. There is no intrahepatic biliary ductal dilatation. Gallbladder: Surgically absent Spleen: Normal in size and attenuation. Pancreas: There are multiple cystic pancreatic lesions involving the distal body and tail. The largest measures 19 mm. On a statistical basis, these represent side branch IPMNs. Adrenal glands: Unremarkable. Kidneys: No renal calculi are visualized. There is mild right-sided hydronephrosis and hydroureter. There is a 4 mm distal right ureteral calculus. Bowel: There are no transition zones indicate bowel obstruction. There is colonic diverticulosis. No acute peridiverticular inflammatory changes are visualized. There is no evidence of acute appendicitis. Peritoneum: There is no intraperitoneal free air or abdominal ascites. Vasculature: The abdominal aorta is normal in course and caliber. Adenopathy: None. Pelvic viscera: The uterus appears surgically absent Skeletal structures: No destructive osseous lesions are seen. IMPRESSION: 1. 4 mm calculus at the level of the right ureterovesical junction with secondary hydroureteronephrosis 2. No evidence of bowel obstruction. No evidence of free air 3. No evidence of acute diverticulitis. No evidence of acute appendicitis 4. Multiple cystic pancreatic lesions measuring up to 19 mm. Although nonspecific on a statistical basis these represent IPMNs. Electronically signed by: Danilo Bautista M.D. 02/18/2018 3:23 PM Dictated Date/Time: 02/18/2018 3:16 PM
--- NOTE | 2018-02-18 15:32 | EMERGENCY ROOM VISIT NOTE ---
History Report prepared by Heath: Eleni Lopez Under the Supervision of: Dr. Damian Leong M.D. First contact with patient: 13:42 Chief Complaint: FLANK PAIN Stated Complaint: FLANK PAIN History of Present Illness The patient is a 77 year old female who presents to the Emergency Room with complaints of worsening right flank pain that onset this morning. The patient notes that the pain started in her back and radiated into her side. She states that she has vomited twice today. She complains of vomiting and diaphoresis. The patient denies hematuria, blood in vomit, hematochezia, urinary symptoms, vaginal bleeding, and vaginal discharge. The patient states that she has a history of cholecystectomy, appendectomy, and hysterectomy. She notes that she has chronic chest pain. The patient states that she is currently on Coumadin. Source of History: patient Onset: this morning Position: other (right flank pain) Quality: other (radiating) Timing: worsening Associated Symptoms: + diaphoresis, + vomiting, + back pain, No urinary symptoms Note: The patient denies hematochezia, blood in her vomit, vaginal bleeding, and vaginal discharge. Review of Systems See HPI for pertinent positives and negatives. A total of ten systems were reviewed and were otherwise negative. Past Medical & Surgical Medical Problems: (1) Atrial fibrillation (2) CAD (coronary artery disease) (3) Chest pain (4) DVT (deep venous thrombosis) (5) Dyslipidemia (6) GERD (gastroesophageal reflux disease) (7) HTN (hypertension) (8) Hypothyroidism (9) IPMN (intraductal papillary mucinous neoplasm) (10) Pacemaker (11) Pulmonary embolism (12) SSS (sick sinus syndrome) Surgical Problems: (1) H/O arthroscopy of knee (2) H/O arthroscopy of shoulder (3) History of hysterectomy (4) Hx of adenoidectomy (5) Hx of appendectomy (6) Hx of cataract surgery (7) Hx of cholecystectomy (8) Hx of hemorrhoidectomy (9) Hx of tonsillectomy (10) S/P BSO (bilateral salpingo-oophorectomy) (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 Social History Smoking Status: Never Smoker Marital Status: Housing Status: lives with significant other Occupation Status: retired Current/Historical Medications Scheduled Amlodipine Besylate (Amlodipine Besylate), 5 MG PO QAM Aspirin (Aspirin Ec), 81 MG PO HS Carvedilol (Coreg), 25 MG PO BID Isosorbide Mononitrate Ext Rel (Imdur Ext Rel), 60 MG PO BID Levothyroxine Sodium (Levothyroxine Sodium), 1 TAB PO QAM Nitroglycerin (Nitrostat), 0.4 MG UT PRN Ondasetron Odt (Zofran Odt), 4 MG SL TID Tamsulosin Hcl (Flomax), 0.4 MG PO DAILY Warfarin Sodium (Coumadin), 0.5 TAB PO [id number] Warfarin Sodium (Coumadin), 5 MG PO WK Scheduled PRN Furosemide (Lasix), 20 MG PO DAILY PRN for FLUID RETENTION Ibuprofen (Advil), 200-600 MG PO Q4H PRN for Pain Ibuprofen (Motrin), 600 MG PO TID PRN for Pain Omeprazole (Prilosec), 20 MG PO DAILY PRN for Indigestion Allergies Coded Allergies: Prednisone (Verified Allergy, Severe, GI PAIN-LED TO PANCREATITIS, 02/18/18 ) Iodinated Diagnostic Agents (Verified Allergy, Unknown, HIVES-ANAPHYLACTIC , 02/18/18) Losartan (Verified Allergy, Unknown, NAUSEA AND VOMITING, 02/18/18) Ranitidine (Verified Allergy, Unknown, NAUSEA AND VOMITING,ACHY, 02/18/18) Rosiglitazone (Verified Adverse Reaction, Severe, BLOOD CLOTS, 02/18/18) Physical Exam Vital Signs Date Time Temp Pulse Resp B/P (MAP) Pulse Ox O2 Delivery O2 Flow Rate FiO2 02/18/18 17:19 62 16 133/85 95 02/18/18 15:26 81 20 156/108 94 Room Air 02/18/18 13:44 36.4 100 16 197/134 94 Room Air Physical Exam Physical Exam GENERAL: He is oriented to person, place, and time. He appears well-developed and well-nourished. He does not appear distressed. HENT: Exam performed. Head: Normocephalic and atraumatic. Right Ear: External ear normal. No mastoid tenderness. Left Ear: External ear normal. No mastoid tenderness. Mouth/Throat: The oropharynx is clear and moist. No trismus in the jaw. No dental abscesses or uvula swelling. No oropharyngeal exudate or tonsillar abscesses. EYES: Conjunctivae and EOM are normal. Pupils are equal, round, and reactive to light. Right eye exhibits no discharge. Left eye exhibits no discharge. No scleral icterus. NECK: Normal range of motion. Neck supple. No JVD present. No spinous process tenderness present. No carotid bruit present. No rigidity. No tracheal deviation and normal range of motion present. No Brudzinski's sign and no Kernig 's sign noted. CV: Normal rate, regular rhythm, normal heart sounds and intact distal pulses. There is no peripheral edema. Palpable radial pulses bue. PULM/CHEST: Effort normal and breath sounds normal. No respiratory distress. No stridor. He has no wheezes. He has no rales. Chest Wall: He exhibits no tenderness. ABD: The abdomen is soft. Bowel sounds are normal. He has no distension. No mass is present. Right-sided CVA tenderness and pain on palpation of the right lower quadrant. There is no rebound, no guarding, no Evans's sign and no tenderness at McBurney's point. Rovsig negative. MUSC/SKEL: Full range of motion, no gross abnormalities. LYMPH: No cervical adenopathy. NEURO: He is alert and oriented to person, place, and time. He has normal strength. No cranial nerve deficit or sensory deficit. Coordination and gait normal. GCS eye subscore is 4. GCS verbal subscore is 5. GCS motor subscore is 6. Cerebellar tests wnl. SKIN: Skin is warm and dry. He is not diaphoretic. PSYCH: He has a normal mood and affect. Behavior is normal. Judgment and thought content normal. Medical Decision & Procedures ER Provider Diagnostic Interpretation: Radiology results as stated below per my review and radiologist interpretation: CT SCAN OF THE ABDOMEN AND PELVIS WITHOUT CONTRAST CLINICAL HISTORY: Right flank pain COMPARISON STUDY: 11/03/2009 TECHNIQUE: CT scan of the abdomen and pelvis was performed from the lung bases to the proximal femurs. Images are reviewed in the axial, sagittal, and coronal planes. IV contrast was not administered for this examination. A dose lowering technique was utilized adhering to the principles of ALARA. CT DOSE: 728.33 mGy.cm FINDINGS: Lower chest: There are coronary artery calcifications. There are dependent atelectatic changes. Liver: The unenhanced liver is normal in size, contour, and attenuation. There is no intrahepatic biliary ductal dilatation. Gallbladder: Surgically absent Spleen: Normal in size and attenuation. Pancreas: There are multiple cystic pancreatic lesions involving the distal body and tail. The largest measures 19 mm. On a statistical basis, these represent side branch IPMNs. Adrenal glands: Unremarkable. Kidneys: No renal calculi are visualized. There is mild right-sided hydronephrosis and hydroureter. There is a 4 mm distal right ureteral calculus. Bowel: There are no transition zones indicate bowel obstruction. There is colonic diverticulosis. No acute peridiverticular inflammatory changes are visualized. There is no evidence of acute appendicitis. Peritoneum: There is no intraperitoneal free air or abdominal ascites. Vasculature: The abdominal aorta is normal in course and caliber. Adenopathy: None. Pelvic viscera: The uterus appears surgically absent Skeletal structures: No destructive osseous lesions are seen. IMPRESSION: 1. 4 mm calculus at the level of the right ureterovesical junction with secondary hydroureteronephrosis 2. No evidence of bowel obstruction. No evidence of free air 3. No evidence of acute diverticulitis. No evidence of acute appendicitis 4. Multiple cystic pancreatic lesions measuring up to 19 mm. Although nonspecific on a statistical basis these represent IPMNs. Electronically signed by: Danilo Bautista M.D. 02/18/2018 3:23 PM Dictated Date/Time: 02/18/2018 3:16 PM Laboratory Results 02/18/18 13:50 Red Blood Count 5.18, Mean Corpuscular Volume 89.0, Mean Corpuscular Hemoglobin 30.1, Mean Corpuscular Hemoglobin Concent 33.8, Mean Platelet Volume 12.0, Neutrophils (%) (Auto) 70.4, Lymphocytes (%) (Auto) 18.1, Monocytes (%) (Auto) 9.4, Eosinophils (%) (Auto) 1.5, Basophils (%) (Auto) 0.3, Neutrophils # (Auto) 6.12, Lymphocytes # (Auto) 1.58, Monocytes # (Auto) 0.82, Eosinophils # (Auto) 0.13, Basophils # (Auto) 0.03 02/18/18 13:50 Test 02/18/18 13:50 02/18/18 14:20 White Blood Count 8.71 K/uL (4.8-10.8) Red Blood Count 5.18 M/uL (4.2-5.4) Hemoglobin 15.6 g/dL (12.0-16.0) Hematocrit 46.1 % (37-47) Mean Corpuscular Volume 89.0 fL (80-100) Mean Corpuscular Hemoglobin 30.1 pg (25-34) Mean Corpuscular Hemoglobin Concent 33.8 g/dl (32-36) Platelet Count 229 K/uL (130-400) Mean Platelet Volume 12.0 fL (7.4-10.4) Neutrophils (%) (Auto) 70.4 % Lymphocytes (%) (Auto) 18.1 % Monocytes (%) (Auto) 9.4 % Eosinophils (%) (Auto) 1.5 % Basophils (%) (Auto) 0.3 % Neutrophils # (Auto) 6.12 K/uL (1.4-6.5) Lymphocytes # (Auto) 1.58 K/uL (1.2-3.4) Monocytes # (Auto) 0.82 K/uL (0.11-0.59) Eosinophils # (Auto) 0.13 K/uL (0-0.5) Basophils # (Auto) 0.03 K/uL (0-0.2) RDW Standard Deviation 46.2 fL (36.4-46.3) RDW Coefficient of Variation 14.1 % (11.5-14.5) Immature Granulocyte % (Auto) 0.3 % Immature Granulocyte # (Auto) 0.03 K/uL (0.00-0.02) Prothrombin Time 20.2 SECONDS (9.0-12.0) Prothromb Time International Ratio 1.9 (0.9-1.1) Activated Partial Thromboplast Time 30.1 SECONDS (21.0-31.0) Partial Thromboplastin Ratio 1.2 Anion Gap 7.0 mmol/L (3-11) Est Creatinine Clear Calc Drug Dose 50.3 ml/min Estimated GFR () 56.3 Estimated GFR (Non- 48.6 BUN/Creatinine Ratio 21.7 (10-20) Calcium Level 10.4 mg/dl (8.5-10.1) Urine Color YELLOW Urine Appearance CLEAR (CLEAR) Urine pH 6.5 (4.5-7.5) Urine Specific [place] 1.013 (1.000-1.030) Urine Protein NEG (NEG) Urine Glucose (UA) NEG (NEG) Urine Ketones NEG (NEG) Urine Occult Blood 3+ (NEG) Urine Nitrite NEG (NEG) Urine Bilirubin NEG (NEG) Urine Urobilinogen NEG (NEG) Urine Leukocyte Esterase NEG (NEG) Urine WBC (Auto) 1-5 /hpf (0-5) Urine RBC (Auto) >30 /hpf (0-4) Urine Hyaline Casts (Auto) 1-5 /lpf (0-5) Urine Epithelial Cells (Auto) >30 /lpf (0-5) Urine Bacteria (Auto) NEG (NEG) Laboratory results reviewed by me Medications Administered Medications (Trade) Dose Ordered Sig/Anastasia Route Start Time Stop Time Status Last Admin Dose Admin Sodium Chloride 500 ml @ 999 mls/hr Q31M STAT IV 02/18/18 14:09 02/18/18 14:39 DC 02/18/18 14:20 999 MLS/HR Sodium Chloride 1,000 ml @ 100 mls/hr Q10H STAT IV 02/18/18 14:09 02/18/18 17:57 DC 02/18/18 14:20 100 MLS/HR Ketorolac Tromethamine (Toradol Inj) 15 mg NOW STAT IV 02/18/18 14:09 02/18/18 14:11 DC 02/18/18 14:19 15 MG Ondansetron HCl (Zofran Inj) 4 mg NOW STAT IV 02/18/18 14:09 02/18/18 14:11 DC 02/18/18 14:19 4 MG ED Course 1345: The patient was evaluated in room B7. A complete history and physical exam was performed. 1409: Ordered Zofran Inj 4 mg, Toradol Inj 15 mg IV, Sodium Chloride 1,000 ml @ 100 mls/hr IV, Sodium Chloride 500 ml @ 999 mls/hr IV. 1720: Vital signs are stable. Patient states pain is better after analgesic and her nausea is better after Zofran. She wants to pass the stone on her own. She will be discharged with analgesia, Zofran, and Flomax. She will follow up with urology. CT showed a 4 mm stone on the right with subtherapeutic INR It also showed multiple systematic pancreatic lesions, the largest at 19 mm. Spoke with PCP Dr[address] Goncalves who was able to review her records and the scan she had done earlier this year. It showed similar lesions on her pancreas and at last 20 appear to be testable. He is aware of the subtherapeutic INR and will follow up with her. DISCHARGE - Plan of care discussed with patient and questions answered. The patient was given both verbal and printed discharge instructions. The patient verbalized understanding and ability to comply. The patient is to seek outpatient follow up as noted in the discharge instructions. The patient verbalized understanding and ability to comply. The patient is discharged in stable condition. The patient was instructed to return for worsening symptoms. Medical Decision Vital signs are stable. Patient states pain is better after analgesic and her nausea is better after Zofran. She wants to pass the stone on her own. She will be discharged with analgesia, Zofran, and Flomax. She will follow up with urology. CT showed a 4 mm stone on the right with subtherapeutic INR It also showed multiple systematic pancreatic lesions, the largest at 19 mm. Spoke with PCP Dr[address] Goncalves who was able to review her records and the scan she had done earlier this year. It showed similar lesions on her pancreas and at last 20 appear to be testable. He is aware of the subtherapeutic INR and will follow up with her. DISCHARGE - Plan of care discussed with patient and questions answered. The patient was given both verbal and printed discharge instructions. The patient verbalized understanding and ability to comply. The patient is to seek outpatient follow up as noted in the discharge instructions. The patient verbalized understanding and ability to comply. The patient is discharged in stable condition. The patient was instructed to return for worsening symptoms. Medication Reconcilliation Current Medication List: was personally reviewed by me Blood Pressure Screening Patient's blood pressure: Normal blood pressure Impression Primary Impression: Kidney stone Scribe Attestation The scribe's documentation has been prepared under my direction and personally reviewed by me in its entirety. I confirm that the note above accurately reflects all work, treatment, procedures, and medical decision making performed by me. The chart was completed utilizing [employer] voice recognition software. Grammatical errors, random word insertions, pronoun errors, and incomplete sentences are an occasional consequence of this system due to software limitations, ambient noise, and hardware issues. Any formal questions or concerns about the content, text, or information contained within the body of this dictation should be directly addressed to the physician for clarification. Departure Information Dispostion Home / Self-Care Prescriptions Tamsulosin Hcl (FLOMAX) 0.4 Mg Cap 0.4 MG PO DAILY, #10 CAP Prov: Damian Leong M.D. 02/18/18 Ondasetron Odt (ZOFRAN ODT) 4 Mg Tab 4 MG SL TID for Nausea, #30 TAB Prov: Damian Leong M.D. 02/18/18 Ibuprofen (Motrin) 600 Mg Tab 600 MG PO TID Y for Pain, #30 TAB WITH FOOD Prov: Damian Leong M.D. 02/18/18 Referrals Payam Escalona D.OJean-Pierre (PCP) Forms HOME CARE DOCUMENTATION FORM, IMPORTANT VISIT INFORMATION Patient Instructions [facility] Additional Instructions Return to the emergency department for develop fever greater 100.4, passing extreme amounts of blood in your urine, inability urinate, or your pain worsens. Follow-up with your PCP about your Coumadin level.
[2018-02-18] MEDS ORDERED: ONDA4TAB10 SL (16:42)
[2018-02-18] MEDS ORDERED: IBUP600T44 PO (16:42)
[2018-02-18] MEDS ORDERED: TAMS0.4C38 PO (16:42)
[2018-02-18 17:19] VITALS: BP 133/85; PULSE 62; O2SAT 95
[2018-02-21] MEDS ORDERED: [UNRECOGNIZED DRUG - CODE] PO (03:06)
[2018-02-23] MEDS ORDERED: DICY10CA55 PO (04:44)
== END 2018-02-18 17:20 | disposition home or self-care (01) ==
LOC: EDBD 13:38 → C.EDB 13:39
DX: N20.0 Calculus of kidney (principal); I48.91 Unspecified atrial fibrillation; I25.10 Atherosclerotic heart disease of native coronary artery without angina pectoris; E78.5 Hyperlipidemia, unspecified; I10 Essential (primary) hypertension; K21.9 Gastro-esophageal reflux disease without esophagitis; E03.9 Hypothyroidism, unspecified; Z95.0 Presence of cardiac pacemaker; Z79.01 Long term (current) use of anticoagulants; Z51.81 Encounter for therapeutic drug level monitoring; Z88.8 Allergy status to other drugs, medicaments and biological substances

== ENCOUNTER 2018-02-23 01:35 | Inpatient (IN) | payer OTHER ==
[~2018-02-23] VITALS: Ht 170.2 cm; Wt 92.5 kg
[~2018-02-23 01:35] MED LIST changes: -DICY10CA55 PO; +IBUP600T44 PO; -Lovenox SC; +ONDA4TAB10 SL; -OXYC-90 PO; +TAMS0.4C38 PO; +[UNRECOGNIZED DRUG - CODE] PO
[2018-02-23 01:59] LABS: BASO % 0.2 %; BASO ABS # 0.02 K/uL (0-0.2); EOS % 1.2 %; HEMOGLOBIN 15.5 g/dL (12.0-16.0); IG# 0.02 K/uL (0.00-0.02); LYMPH % 22.4 %; LYMPH ABS # 1.81 K/uL (1.2-3.4); MEAN CELL VOLUME 88.8 fL (80-100); MEAN CORPUSCULAR HEMOGLOBIN 30.6 pg (25-34); MEAN CORPUSCULAR HGB CONC 34.4 g/dl (32-36); MONO % 11.4 %; MONO ABS # 0.92 K/uL (0.11-0.59); NEUT % 64.6 %; NEUT ABS # 5.21 K/uL (1.4-6.5); PLATELET COUNT 213 K/uL (130-400); RED CELL DISTRIBUTION WIDTH CV 14.1 % (11.5-14.5); RED CELL DISTRIBUTION WIDTH SD 45.8 fL (36.4-46.3); WHITE BLOOD COUNT 8.08 K/uL (4.8-10.8)
[2018-02-23 02:08] LABS: INR 1.9 (0.9-1.1)
[2018-02-23 02:19] LABS: ALBUMIN 3.4 gm/dl (3.4-5.0); ALKALINE PHOSPHATASE 123 U/L (45-117); ALT/SGPT 26 U/L (12-78); AST/SGOT 15 U/L (15-37); BLOOD UREA NITROGEN 22 mg/dl (7-18); CALCIUM 9.6 mg/dl (8.5-10.1); CARBON DIOXIDE 27 mmol/L (21-32); CREATININE 1.23 mg/dl (0.60-1.20); GLUCOSE 129 mg/dl (70-99); LIPASE 162 U/L (73-393); POTASSIUM 3.7 mmol/L (3.5-5.1); SODIUM 139 mmol/L (136-145); TOTAL PROTEIN 6.7 gm/dl (6.4-8.2)
[2018-02-23] MEDS ORDERED: METOCLOPRAMIDE HCL INJ 5 MG/ML 2 ML VIAL IV STA (02:21)
[2018-02-23] MEDS ORDERED: HYDROmorphone INJ 1 MG/ML SYR IV STA (02:21)
--- NOTE | 2018-02-23 02:31 | EMERGENCY ROOM VISIT NOTE ---
History Report prepared by Heath: Rossy Belcher Under the Supervision of: Dr. Mir Stark M.D. First contact with patient: 01:48 Chief Complaint: FLANK PAIN Stated Complaint: R SIDED FLANK PAIN History of Present Illness The patient is a 77 year old female who presents to the Emergency Room with complaints of worsening right flank pain that started around 0000 today. The patient reports that she has been experiencing intermittent right flank pain for the past few days, but her pain has not been as severe as it is now. She states that she felt fine yesterday afternoon but started feeling pain yesterday night. She notes that she subsequently took 1 dose of hydrocodone at 2300 with no relief, followed by another dose of hydrocodone at 2330 with no relief. She currently rates her pain a 10/10. The patient reports that this pain is similar to the pain she had when she was diagnosed with kidney stones 4 days ago, but worse. The patient also complains of vomiting yesterday. She notes that she has not vomited today but that she feels the need to do so. Source of History: patient Onset: 0000 today Position: abdomen (right flank) Symptom Intensity: 10/10 Quality: other (pain) Timing: worsening Associated Symptoms: + vomiting Review of Systems See HPI for pertinent positives & negatives. A total of 10 systems reviewed and were otherwise negative. Past Medical & Surgical Medical Problems: (1) Atrial fibrillation (2) CAD (coronary artery disease) (3) Chest pain (4) DVT (deep venous thrombosis) (5) Dyslipidemia (6) GERD (gastroesophageal reflux disease) (7) HTN (hypertension) (8) Hypothyroidism (9) IPMN (intraductal papillary mucinous neoplasm) (10) Pacemaker (11) Pulmonary embolism (12) Renal colic on right side (13) SSS (sick sinus syndrome) Surgical Problems: (1) H/O arthroscopy of knee (2) H/O arthroscopy of shoulder (3) History of hysterectomy (4) Hx of adenoidectomy (5) Hx of appendectomy (6) Hx of cataract surgery (7) Hx of cholecystectomy (8) Hx of hemorrhoidectomy (9) Hx of tonsillectomy (10) S/P BSO (bilateral salpingo-oophorectomy) (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 Social History Smoking Status: Current Every Day Smoker Marital Status: Housing Status: lives with significant other Occupation Status: retired Current/Historical Medications Scheduled Amlodipine Besylate (Amlodipine Besylate), 5 MG PO QAM Aspirin (Aspirin Ec), 81 MG PO HS Carvedilol (Coreg), 25 MG PO BID Ciprofloxacin HCl (Ciprofloxacin Hydrochlori), 1 TAB PO TID Isosorbide Mononitrate Ext Rel (Imdur Ext Rel), 60 MG PO BID Levothyroxine Sodium (Levothyroxine Sodium), 1 TAB PO QAM Nitroglycerin (Nitrostat), 0.4 MG UT PRN Omeprazole (Prilosec), 20 MG PO DAILY Tamsulosin HCl (Tamsulosin HCl), 1 TAB PO DAILY Warfarin Sodium (Coumadin), 0.5 TAB PO 6XWK Warfarin Sodium (Coumadin), 5 MG PO WK Scheduled PRN Dicyclomine Hcl (Bentyl), 1 CAP PO TID PRN for ABDOMINAL PAIN Furosemide (Lasix), 20 MG PO DAILY PRN for FLUID RETENTION Ibuprofen (Motrin), 600 MG PO TID PRN for Pain Nitroglycerin (Nitrostat), 0.4 MG UT UD PRN for Chest Pain Ondansetron Hcl (Zofran), 4 MG SL TID PRN for Nausea Allergies Coded Allergies: Prednisone (Verified Allergy, Severe, GI PAIN-LED TO PANCREATITIS, 02/23/18 ) Iodinated Diagnostic Agents (Verified Allergy, Unknown, HIVES-ANAPHYLACTIC , 02/23/18) Losartan (Verified Allergy, Unknown, NAUSEA AND VOMITING, 02/23/18) Ranitidine (Verified Allergy, Unknown, NAUSEA AND VOMITING,ACHY, 02/23/18) Rosiglitazone (Verified Adverse Reaction, Severe, BLOOD CLOTS, 02/23/18) Physical Exam Vital Signs Date Time Temp Pulse Resp B/P (MAP) Pulse Ox O2 Delivery O2 Flow Rate FiO2 02/23/18 04:33 66 02/23/18 04:20 80 16 135/104 98 Room Air 02/23/18 02:35 66 135/85 97 Room Air 02/23/18 02:23 71 02/23/18 01:54 36.9 76 16 177/104 96 Room Air Physical Exam GENERAL: Awake, alert, well-appearing, in no acute distress HENT: Normocephalic, atraumatic. Oropharynx unremarkable. EYES: Normal conjunctiva. Sclera non-icteric. NECK: Supple. No nuchal rigidity. FROM. No JVD. RESPIRATORY: Clear to auscultation. CARDIAC: Regular rate, normal rhythm. Extremities warm and well perfused. Pulses equal. ABDOMEN: Soft, non-distended. No tenderness to palpation. No rebound or guarding. No masses. RECTAL: Deferred. MUSCULOSKELETAL: Chest examination reveals no tenderness. The back is symmetrical on inspection without obvious abnormality. There is no CVA tenderness to palpation. No joint edema. LOWER EXTREMITIES: Calves are equal size bilaterally and non-tender. No edema. No discoloration. NEURO: Normal sensorium. No sensory or motor deficits noted. SKIN: No rash or jaundice noted. Medical Decision & Procedures ER Provider Diagnostic Interpretation: One-view of the KUB interpreted by me. Shows no evidence of obstruction, free air, no fractures. US RENAL: Comparison 02/18/18 CT 7 mm echogenic focus likely representing calcified stone at the right ureterovesicular junction with evidence for obstructive uropathy including upstream mild right hydronephrosis and likely perinephric edema. No right ureteral jet identified currently. A left ureteral jet is identified. The left kidney is unremarkable. Slight urinary bladder wall prominence, possibly related to underdistention. Radiologist: Trixie Godfrey MD Laboratory Results 02/23/18 01:13 Red Blood Count 5.07, Mean Corpuscular Volume 88.8, Mean Corpuscular Hemoglobin 30.6, Mean Corpuscular Hemoglobin Concent 34.4, Mean Platelet Volume 12.0, Neutrophils (%) (Auto) 64.6, Lymphocytes (%) (Auto) 22.4, Monocytes (%) (Auto) 11.4, Eosinophils (%) (Auto) 1.2, Basophils (%) (Auto) 0.2, Neutrophils # (Auto ) 5.21, Lymphocytes # (Auto) 1.81, Monocytes # (Auto) 0.92, Eosinophils # (Auto ) 0.10, Basophils # (Auto) 0.02 02/23/18 01:13 Test 02/23/18 01:13 02/23/18 01:45 White Blood Count 8.08 K/uL (4.8-10.8) Red Blood Count 5.07 M/uL (4.2-5.4) Hemoglobin 15.5 g/dL (12.0-16.0) Hematocrit 45.0 % (37-47) Mean Corpuscular Volume 88.8 fL (80-100) Mean Corpuscular Hemoglobin 30.6 pg (25-34) Mean Corpuscular Hemoglobin Concent 34.4 g/dl (32-36) Platelet Count 213 K/uL (130-400) Mean Platelet Volume 12.0 fL (7.4-10.4) Neutrophils (%) (Auto) 64.6 % Lymphocytes (%) (Auto) 22.4 % Monocytes (%) (Auto) 11.4 % Eosinophils (%) (Auto) 1.2 % Basophils (%) (Auto) 0.2 % Neutrophils # (Auto) 5.21 K/uL (1.4-6.5) Lymphocytes # (Auto) 1.81 K/uL (1.2-3.4) Monocytes # (Auto) 0.92 K/uL (0.11-0.59) Eosinophils # (Auto) 0.10 K/uL (0-0.5) Basophils # (Auto) 0.02 K/uL (0-0.2) RDW Standard Deviation 45.8 fL (36.4-46.3) RDW Coefficient of Variation 14.1 % (11.5-14.5) Immature Granulocyte % (Auto) 0.2 % Immature Granulocyte # (Auto) 0.02 K/uL (0.00-0.02) Anion Gap 7.0 mmol/L (3-11) Est Creatinine Clear Calc Drug Dose 44.8 ml/min Estimated GFR () 48.7 Estimated GFR (Non- 42.0 BUN/Creatinine Ratio 18.0 (10-20) Calcium Level 9.6 mg/dl (8.5-10.1) Total Bilirubin 0.3 mg/dl (0.2-1) Direct Bilirubin < 0.1 mg/dl (0-0.2) Aspartate Amino Transf (AST/SGOT) 15 U/L (15-37) Alanine Aminotransferase (ALT/SGPT) 26 U/L (12-78) Alkaline Phosphatase 123 U/L (45-117) Total Protein 6.7 gm/dl (6.4-8.2) Albumin 3.4 gm/dl (3.4-5.0) Lipase 162 U/L (73-393) Urine Color YELLOW Urine Appearance CLEAR (CLEAR) Urine pH 7.0 (4.5-7.5) Urine Specific [place] 1.012 (1.000-1.030) Urine Protein NEG (NEG) Urine Glucose (UA) NEG (NEG) Urine Ketones NEG (NEG) Urine Occult Blood 2+ (NEG) Urine Nitrite NEG (NEG) Urine Bilirubin NEG (NEG) Urine Urobilinogen NEG (NEG) Urine Leukocyte Esterase TRACE (NEG) Urine WBC (Auto) 1-5 /hpf (0-5) Urine RBC (Auto) 10-30 /hpf (0-4) Urine Hyaline Casts (Auto) 1-5 /lpf (0-5) Urine Epithelial Cells (Auto) >30 /lpf (0-5) Urine Bacteria (Auto) NEG (NEG) Labs reviewed by ED physician. Medications Administered Medications (Trade) Dose Ordered Sig/Anastasia Route Start Time Stop Time Status Last Admin Dose Admin Hydromorphone HCl (Dilaudid Inj) 1 mg NOW STAT IV 02/23/18 02:21 02/23/18 02:23 DC 02/23/18 02:31 1 MG Metoclopramide HCl (Reglan Inj) 10 mg NOW STAT IV 02/23/18 02:21 02/23/18 02:23 DC 02/23/18 02:30 10 MG Tamsulosin HCl (Flomax Cap) 0.4 mg NOW STAT PO 02/23/18 03:41 02/23/18 03:42 DC 02/23/18 03:52 0.4 MG ED Course 0203: Past medical records reviewed. The patient was evaluated in room A10. A complete history and physical examination was performed. 0358: I discussed the patient's case with Dr. Banda - Hospital[facility], he has agreed to evaluate the patient for further management and care. Medical Decision Etiologies such as appendicitis, diverticulitis, PUD, biliary pathology, UTI, pancreatitis, obstruction, mesenteric ischemia, aortic pathology, infections, inflammatory bowel disease, renal colic, as well as others were entertained. This is a 77-year-old female who presents emergency department during a period of high volume and high acuity during single provider coverage. Patient is complaining of pain from a known kidney stone. The patient recently had a CAT scan of the abdomen and pelvis showing with a stone was therefore using shared medical decision making we made the decision to obtain a KUB as well as an ultrasound. The ultrasound was concerning for 7 mm stone that I do not believe has moved much since the patient's CAT scan. Based on this I offered to send the patient home however she would like to be admitted. She is afebrile here. I did discuss the case with hospitalist service who agreed to admit the patient. Patient was in agreement with the treatment plan Medication Reconcilliation Current Medication List: was personally reviewed by me Blood Pressure Screening Patient's blood pressure: Elevated blood pressure (will be futher monitored by hospitalist) Consults Time Called: [phone] Consulting Physician: Dr. Banda - [facility] Returned Call: [phone] I discussed the patient's case with Dr. Banda, he has agreed to evaluate the patient for further management and care. Impression Primary Impression: Kidney stone Scribe Attestation The scribe's documentation has been prepared under my direction and personally reviewed by me in its entirety. I confirm that the note above accurately reflects all work, treatment, procedures, and medical decision making performed by me. Departure Information Dispostion Being Evaluated By Hospitalist Prescriptions Dicyclomine Hcl (BENTYL) 10 Mg Cap 1 CAP PO TID Y for ABDOMINAL PAIN for 30 Days, #90 CAP 1 Refill Prov: Roger Banda MD 02/23/18 Referrals Payam Escalona D.O. (PCP) Patient Instructions My [facility]
[2018-02-23] MEDS ORDERED: FLM4 PO (03:06)
[2018-02-23] MEDS ORDERED: ONDA4TAB46 SL (03:06)
[2018-02-23] MEDS ORDERED: IBUP-1450 PO (03:07)
[2018-02-23] MEDS ORDERED: NTRGSL/4 UT (03:09)
[2018-02-23] MEDS ORDERED: TAMSULOSIN HCL 0.4 MG CAP PO STA (03:41)
[2018-02-23] MEDS ORDERED: DICY10CA55 PO (04:44)
[2018-02-23] MEDS ORDERED: ALUMINUM/MAGNESIUM/SIMETH (MAALOX MAX) 30 ML UDC PO PRN (04:45)
[2018-02-23] MEDS ORDERED: POLYETHYLENE (MIRALAX) 17 GM PACK PO PRN (04:45)
[2018-02-23] MEDS ORDERED: ACETAMINOPHEN 325 MG TAB PO PRN (04:45)
[2018-02-23] MEDS ORDERED: FUROSEMIDE 20 MG TAB PO PRN (04:45)
[2018-02-23] MEDS ORDERED: ONDANSETRON 4 MG TAB PO PRN (04:45)
[2018-02-23] MEDS ORDERED: IBUPROFEN 600 MG TAB PO PRN (04:45)
[2018-02-23] MEDS ORDERED: DICYCLOMINE HCL 10 MG CAP PO PRN (04:45)
[2018-02-23] MEDS ORDERED: ONDANSETRON INJ 2 MG/ML 2 ML VIAL IV PRN (04:45)
[2018-02-23] MEDS ORDERED: NITROGLYCERIN 0.4 MG SL PER TAB CHARGE UT PRN (04:45)
[2018-02-23 06:25] VITALS: BP 136/89; PULSE 90; TEMP 36.9; O2SAT 92; Ht 170.2 cm; Wt 92.5 kg
[2018-02-23] MEDS: SODIUM CHLORIDE 0.9% 1000ML 1,000 ML IV SCH ×2 (06:29→15:32)
[2018-02-23] MEDS: CEFTRIAXONE SOD INJ 1 GM in DEXTROSE 5% ADD-VANTAGE 50ML 50 ML IV SCH (07:27)
[2018-02-23] MEDS: LEVOTHYROXINE 50 MCG TAB PO SCH (07:28)
--- NOTE | 2018-02-23 07:29 | DIAGNOSTIC IMAGING REPORT ---
EXAMINATION: RENAL ULTRASOUND CLINICAL HISTORY: Right-sided flank pain COMPARISON STUDY: CT scan performed February 18, 2018 FINDINGS: The right kidney measures 11.7 cm. The left kidney measures 12.2 cm.. There is right-sided hydronephrosis. There is trace right-sided perinephric fluid. There are no renal masses. There is a suspected 7 mm right UVJ calculus. The right ureteral jet was not visualized. IMPRESSION : 1. Right-sided hydronephrosis and perinephric fluid. 2. Suspected obstructing 7 mm right UVJ calculus. Electronically signed by: Danilo Bautista M.D. 02/23/2018 7:28 AM Dictated Date/Time: 02/23/2018 7:26 AM
[2018-02-23] MEDS: HYDROmorphone INJ 0.5 MG/0.5 ML SYR IV PRN ×2 (07:39→16:02)
[2018-02-23 07:51] VITALS: BP 116/76; PULSE 62; TEMP 36.6; O2SAT 93
--- NOTE | 2018-02-23 08:05 | DIAGNOSTIC IMAGING REPORT ---
KUB CLINICAL HISTORY: Right-sided flank pain COMPARISON STUDY: CT scan dated 02/18/2018 FINDINGS: There are multiple nonspecific pelvic basin calcifications. Given the history of flank pain, a distal ureteral calculus cannot be excluded. There are mildly dilated small bowel loops without a definitive transition zone. These measure up to 37 mm. Given the history of a known ureteral calculus, the findings likely represent an ileus. Clinical follow-up is advocated. IMPRESSION: 1. Multiple nonspecific pelvic basin calcifications. One of these may represent the patient's known distal right ureteral calculus 2. Gaseous distention of the small bowel, likely secondary to an ileus Electronically signed by: Danilo Bautista M.D. 02/23/2018 8:03 AM Dictated Date/Time: 02/23/2018 8:01 AM
--- NOTE | 2018-02-23 08:34 | HISTORY & PHYSICAL EXAMINATION ---
DATE OF ADMISSION: 02/23/2018 CHIEF COMPLAINT: Right flank pain. HISTORY OF PRESENT ILLNESS: This is a 77-year-old female with past medical history significant for CAD status post CABG, status post stents; history of atrial fibrillation status post pacemaker; irritable bowel syndrome; GERD; history of DVT; history of PE; hyperlipidemia; hypertension; hypothyroidism, presents with right flank pain. The patient was in the ER last Sunday with right flank pain and found to have 4 mm right UPJ junction stone and she was discharged on Flomax and pain medication. The patient says the pain is not controlled. She was getting on and off severe pain,with nausea and vomiting, feeling chills. She came to the ER today and imaging studies unofficial report says the stone is still present. Currently, pain is controlled with pain medications and nausea is controlled with antiemetics. Resting comfortably and hemodynamically stable. Denies any headaches. No dizziness, no blurred vision, no earache, no runny nose, no sore throat, no cough, no shortness of breath, no chest pain, no abdominal pain. Appetite is not that good since last few days. Constipated since last few days. No obvious blood in the urine, no burning sensation while micturition. Has chronic left lower extremity swelling. No rash. ALLERGIES: TO IODINATED DIAGNOSTIC AGENTS, LISINOPRIL, LORATADINE, PREDNISONE. PAST MEDICAL HISTORY: As mentioned above. PAST SURGICAL HISTORY: Left core breast biopsy, CABG, EGD with endoscopic ultrasound, eyelid surgery, knee arthroscopy, laparoscopic cholecystectomy, appendectomy, cataract surgery, tonsillectomy, adenoidectomy, shoulder surgery, total hysterectomy with bilateral salpingo-oophorectomy. MEDICATIONS: The patient is on Cipro 500 mg p.o. b.i.d., hydrocodone/acetaminophen 5/325 mg one tablet every 6 hours p.r.n. for pain, ibuprofen 600 mg p.o. q. 6 hours p.r.n., Zofran 4 mg p.o. t.i.d. p.r.n., Flomax 0.4 mg p.o. daily, Imdur 60 mg p.o. daily, nitroglycerin 0.4 mg sublingual p.r.n., Coreg 25 mg p.o. b.i.d., Bentyl 10 mg p.o. q.i.d. p.r.n., amlodipine 5 mg p.o. daily, omeprazole 20 mg p.o. daily, levothyroxine 50 mcg p.o. daily, Coumadin 5 mg on and 2.5 mg all other days, Lasix 20 mg daily p.r.n., aspirin enteric-coated 81 mg p.o. daily. FAMILY HISTORY: Significant for mother had seizures and stroke. SOCIAL HISTORY: . No smoking history. No alcohol. No drug abuse. REVIEW OF SYMPTOMS: As per HPI. Rest of review of symptoms negative. PHYSICAL EXAMINATION: GENERAL: Patient is of moderate built, not in distress. VITAL SIGNS: Temperature 36.9, pulse 66, respiratory rate 16, blood pressure 135/104, oxygen 98% on room air. HEENT: No pallor, no icterus. Pupils equal, round, and reactive to light. NECK: No JVD, no neck masses, no carotid bruits. CARDIOVASCULAR: S1, S2 heard, regular rate and rhythm, no murmur, no gallop. RESPIRATORY SYSTEM: Clear to auscultation bilaterally. No wheezing, no crackles. ABDOMEN: Soft, bowel sounds present. Nontender. No distention. No CVA tenderness. CENTRAL NERVOUS SYSTEM: Cranial nerves II-XII grossly intact. Nonfocal. EXTREMITIES: Trace right and left lower extremity edema. No erythema seen. LABORATORIES: WBC 8.08, hemoglobin 15.5, hematocrit 45, platelets 213. Sodium 113, potassium 3.7, chloride 105, bicarb 27, BUN 22, creatinine 1.2, serum glucose 129, calcium 9.6, total bilirubin 0.3, direct bilirubin less than 0.1, AST 15, ALT 26, alkaline phosphatase 123, lipase 162. Urinalysis trace, leukocyte esterase positive. PT 19.5, INR 1.9. ASSESSMENT AND PLAN: This is a 77-year-old female who presents with right renal colic. 1. Right renal colic. Recent CAT scan showed 4mm right UPJ junction stone Imaging studies done today kub and ultrasound stone still present.. Presents with uncontrolled pain. We will admit to medical floor. IV fluids, IV antiemetics, and IV pain medications. Empiric antibiotics. Follow the cultures. Urology consult for further recommendations, stent placement, stone extraction as per urology. 2. History of coronary artery disease status post coronary artery bypass graft, status post stents. Hold aspirin. Continue Imdur and Coreg. Currently stable. 3. History of hypertension. Continue Coreg, amlodipine. Monitor blood pressure. 4. History of hypothyroidism. Continue Synthroid. 5. History of atrial fibrillation status post pacemaker. Hold Coumadin for any procedures. 6. History of DVT and PE many years ago. Holding Coumadin for any procedure and restart as soon as possible. 7. History of irritable bowel syndrome On Bentyl p.r.n. 8. Gastroesophageal reflux disease, proton pump inhibitor. 9. Deep vein thrombosis prophylaxis, SCDs for now. 10. Disposition: Admit to medical floor. Expect to discharge home and follow up with family doctor and urology. Level 1 full code. MTDD
[2018-02-23] MEDS: PANTOprazole SOD 40 MG TAB PO SCH (09:00)
[2018-02-23] MEDS: AMLODIPINE BESYLATE 5 MG TAB PO SCH (09:00)
[2018-02-23 09:52] VITALS: BP 118/70; PULSE 70
[2018-02-23] MEDS: CARVEDILOL 25 MG TAB PO SCH ×2 (09:54→20:17)
[2018-02-23] MEDS: TAMSULOSIN HCL 0.4 MG CAP PO SCH (09:54)
[2018-02-23] MEDS: ISOSORBIDE MONONITRATE 60 MG TABCR PO SCH ×2 (09:55→20:17)
--- NOTE | 2018-02-23 11:28 | Urology Consultation ---
History General Date of Service: Feb 23, 2018. Primary Care Physician: Payam Escalona D.O. History of Present Illness Patient is a 77-year-old white female admitted with right renal colic. She was in the emergency room approximately [address] scan showed a 4 mm distal right stone she was sent home but her pain recurred so she came back to the emergency room currently she is pain-free no nausea or vomiting no fevers or chills. This is her first stone. Says she is voiding without problem. Denies hematuria Laboratory Labs were reviewed and are within normal limits unless listed below. Labs are available in the chart and at [facility] Problem List Medical Problems: (1) Angina pectoris Status: Acute (2) Cervical strain Status: Acute (3) Closed head injury Status: Acute (4) Dizziness Status: Acute (5) Fall Status: Acute (6) Kidney stone Status: Acute (7) Kidney stone Status: Acute (8) Left sided chest pain Status: Acute (9) Orthostasis Status: Acute (10) Proximal humerus fracture Status: Acute Family History Patient reports no known family medical history. Social History Hx Tobacco Use In Past Year?: No Marital status: Housing status: lives with family Occupation status: retired Immunizations History of Influenza Vaccine: Yes Influenza Vaccine Date: Apr 01, 2011 History of Tetanus Vaccine?: Yes Tetanus Immunization Date: Sep 13, 2011 History of Pneumococcal: Yes Pneumococcal Date: Apr 04, 2013 History of Hepatitis B Vaccine: No History of MDRO No Allergies Coded Allergies: Prednisone (Verified Allergy, Severe, GI PAIN-LED TO PANCREATITIS, 02/23/18 ) Iodinated Diagnostic Agents (Verified Allergy, Unknown, HIVES-ANAPHYLACTIC , 02/23/18) Losartan (Verified Allergy, Unknown, NAUSEA AND VOMITING, 02/23/18) Ranitidine (Verified Allergy, Unknown, NAUSEA AND VOMITING,ACHY, 02/23/18) Rosiglitazone (Verified Adverse Reaction, Severe, BLOOD CLOTS, 02/23/18) Medications Home Medications: Home Meds and Scripts Medications Dose Route/Sig Max Daily Dose Days Date Category Dose Instructions Bentyl (Dicyclomine Hcl) 10 Mg Cap 1 Cap PO TID PRN 30 02/23/18 Rx Nitrostat (Nitroglycerin) 0.4 Mg Tab 0.4 Mg UT UD PRN 02/23/18 Reported Motrin (Ibuprofen) 600 Mg Tab 600 Mg PO TID PRN 02/23/18 Reported take with food Zofran (Ondansetron HCl) 4 Mg Tab 4 Mg SL TID PRN 02/23/18 Reported Tamsulosin HCl 0.4 Mg Cap 1 Tab PO DAILY 02/23/18 Reported Ciprofloxacin Hydrochlori (Ciprofloxacin HCl) 500 Mg Tab 1 Tab PO TID 10 02/23/18 Reported Coumadin (Warfarin Sodium) 5 Mg Tab 5 Mg PO WK 11/28/17 Reported pt takes the full 5mg tab once per week on Coumadin (Warfarin Sodium) 5 Mg Tab 0.5 Tab PO 6XWK 11/28/17 Reported Prilosec (Omeprazole) 20 Mg Capcr 20 Mg PO DAILY 11/28/17 Reported Coreg (Carvedilol) 25 Mg Tab 25 Mg PO BID 11/28/17 Reported Nitrostat (Nitroglycerin) 0.4 Mg Tab 0.4 Mg UT PRN 11/28/17 Reported Levothyroxine Sodium 50 Mcg Tab 1 Tab PO QAM 11/28/17 Reported Imdur Ext Rel (Isosorbide Mononitrate) 60 Mg Ertab 60 Mg PO BID 11/28/17 Reported Lasix (Furosemide) 20 Mg Tab 20 Mg PO DAILY PRN 11/28/17 Reported Amlodipine Besylate 5 Mg Tab 5 Mg PO QAM 08/26/15 Reported Aspirin Ec (Aspirin) 81 Mg Tab 81 Mg PO HS 10/05/13 Reported PT WILL CHECK WITH PCP FOR INSTRUCTIONS Inpatient Medications: Current Inpatient Medications Medications (Trade) Dose Ordered Sig/Anastasia Route Start Time Stop Time Status Last Admin Dose Admin Acetaminophen (Tylenol Tab) 650 mg Q4H PRN PO 02/23/18 04:45 03/25/18 04:44 Al Hydrox/Mg Hydrox/Simethicone (Maalox Max Susp) 15 ml Q4H PRN PO 02/23/18 04:45 03/25/18 04:44 Polyethylene (Miralax Powder Packet) 17 gm DAILY PRN PO 02/23/18 04:45 03/25/18 04:44 Ondansetron HCl (Zofran Inj) 4 mg Q6H PRN IV 02/23/18 04:45 03/25/18 04:44 Sodium Chloride 1,000 ml @ 100 mls/hr Q10H IV 02/23/18 04:45 03/25/18 04:44 02/23/18 06:29 100 MLS/HR Hydromorphone HCl (Dilaudid Inj) 0.5 mg Q3HWA PRN IV 02/23/18 04:45 03/09/18 04:44 02/23/18 07:39 0.5 MG Amlodipine Besylate (Norvasc Tab) 5 mg QAM PO 02/23/18 09:00 03/25/18 08:59 Carvedilol (Coreg Tab) 25 mg BID PO 02/23/18 09:00 03/25/18 08:59 02/23/18 09:54 25 MG Furosemide (Lasix Tab) 20 mg DAILY PRN PO 02/23/18 04:45 03/25/18 04:44 Ibuprofen (Motrin Tab) 600 mg TID PRN PO 02/23/18 04:45 03/25/18 04:44 Isosorbide Mononitrate (Imdur Ext Rel Tab) 60 mg BID PO 02/23/18 09:00 03/25/18 08:59 02/23/18 09:55 60 MG Levothyroxine Sodium (Synthroid Tab) 50 mcg DAILYBB PO 02/23/18 07:00 03/25/18 06:59 02/23/18 07:28 50 MCG Nitroglycerin (Nitrostat Tab) 0.4 mg UD PRN UT 02/23/18 04:45 03/25/18 04:44 Ondansetron HCl (Zofran Tab) 4 mg TID PRN PO 02/23/18 04:45 03/25/18 04:44 Tamsulosin HCl (Flomax Cap) 0.4 mg DAILY PO 02/23/18 09:00 03/25/18 08:59 02/23/18 09:54 0.4 MG Pantoprazole Sodium (Protonix Tab) 40 mg QAM PO 02/23/18 09:00 03/25/18 08:59 Ceftriaxone Sodium 1 gm/ Dextrose 50 ml @ 100 mls/hr Q24H IV 02/23/18 07:00 03/05/18 04:44 02/23/18 07:27 100 MLS/HR Dicyclomine HCl (Bentyl Cap) 10 mg TID PRN PO 02/23/18 04:45 03/25/18 04:44 Review of Systems Review of Systems Additional Comments: Review of systems reviewed from the admitting history and physical and ER notes Physical Exam Vital Signs: Vital Signs Past 12 Hours Date Time Temp Pulse Resp B/P (MAP) Pulse Ox O2 Delivery O2 Flow Rate FiO2 02/23/18 09:52 70 118/70 (86) 02/23/18 07:51 36.6 62 14 116/76 (89) 93 Room Air 02/23/18 07:20 Room Air 02/23/18 06:25 36.9 90 18 136/89 92 Room Air 02/23/18 05:56 89 16 133/82 97 02/23/18 04:33 66 02/23/18 04:20 80 16 135/104 98 Room Air 02/23/18 02:35 66 135/85 97 Room Air 02/23/18 02:23 71 02/23/18 01:54 36.9 76 16 177/104 96 Room Air Physical Exam: General Appearance: WD/WN, no apparent distress Eyes: bilateral eyes normal inspection ENT: hearing grossly normal Neck: supple Respiratory/Chest: no respiratory distress, no accessory muscle use Cardiovascular: regular rate, rhythm Gastrointestinal: Abdomen: normal abdomen Assessment & Plan Assessment & Plan Assessment Renal colic secondary to a 4 mm distal right stone I reviewed her CT scan also a KUB that she had there is a stone is most likely passing through the bladder I did discuss with her the stone is small enough to pass on its own The other options would be ureteroscopy laser lithotripsy and stent She does have fairly significant cardiac history according to her and is on Coumadin currently I would be somewhat concerned about putting her under anesthesia without cardiac clearance I think if she needs to have something done I would probably just place a stent for now until I could get 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
[2018-02-23 11:52] VITALS: BP 104/66; PULSE 60; TEMP 36.6; O2SAT 92
[2018-02-23 15:27] VITALS: BP 146/86; PULSE 64; TEMP 36.6; O2SAT 96
--- NOTE | 2018-02-23 19:00 | Progress Note ---
Progress Note Date of Service Feb 23, 2018. Progress Note ATTENDING NOTE: pt admitted earlier today please seen the H&P for detail This is a 77-year-old female with past medical history of coronary artery disease status post CABG, status post stent, history of A. fib on Coumadin Resented with right flank pain on to have a 4 mm right-sided obstructing stone Patient is on the medical floor, continue IV fluids pain medication Urology consult requested Appreciate input Given the position of stone located distal ureter, spontaneous passage of kidney stone is most likely Plan observe patient overnight Discharge patient tomorrow morning if there is no recurrence of right flank pain , passage of stone into the bladder Patient will need outpatient follow-up with urology Dr. Villagomez
[2018-02-23 22:55] VITALS: BP 142/74; PULSE 60; TEMP 36.7; O2SAT 92
[2018-02-24] MEDS: SODIUM CHLORIDE 0.9% 1000ML 1,000 ML IV SCH ×2 (00:24→10:36)
[2018-02-24 05:39] LABS: BASO % 0.2 %; BASO ABS # 0.01 K/uL (0-0.2); EOS % 2.5 %; EOS ABS # 0.13 K/uL (0-0.5); HEMATOCRIT 39.5 % (37-47); HEMOGLOBIN 12.7 g/dL (12.0-16.0); IG# 0.01 K/uL (0.00-0.02); LYMPH % 31.8 %; LYMPH ABS # 1.65 K/uL (1.2-3.4); MEAN CELL VOLUME 90.4 fL (80-100); MEAN CORPUSCULAR HEMOGLOBIN 29.1 pg (25-34); MEAN CORPUSCULAR HGB CONC 32.2 g/dl (32-36); MEAN PLATELET VOLUME 11.2 fL (7.4-10.4); MONO % 9.6 %; NEUT % 55.7 %; NEUT ABS # 2.89 K/uL (1.4-6.5); PLATELET COUNT 171 K/uL (130-400); RED CELL DISTRIBUTION WIDTH CV 14.1 % (11.5-14.5); RED CELL DISTRIBUTION WIDTH SD 46.9 fL (36.4-46.3); WHITE BLOOD COUNT 5.19 K/uL (4.8-10.8)
[2018-02-24 05:42] LABS: INR 2.1 (0.9-1.1)
[2018-02-24] MEDS: LEVOTHYROXINE 50 MCG TAB PO SCH (06:00)
[2018-02-24] MEDS: CEFTRIAXONE SOD INJ 1 GM in DEXTROSE 5% ADD-VANTAGE 50ML 50 ML IV SCH (06:01)
[2018-02-24 06:08] LABS: CALCIUM 8.7 mg/dl (8.5-10.1); CREATININE 0.98 mg/dl (0.60-1.20); POTASSIUM 3.9 mmol/L (3.5-5.1)
[2018-02-24 07:17] VITALS: BP 153/89; PULSE 68; TEMP 36.6; O2SAT 93
[2018-02-24] MEDS: PANTOprazole SOD 40 MG TAB PO SCH (09:00)
--- NOTE | 2018-02-24 09:03 | DIAGNOSTIC IMAGING REPORT ---
KUB HISTORY: Acute right-sided flank pain stone COMPARISON: KUB 02/23/2018, CT 02/18/2018 FINDINGS: The bowel gas pattern is non-obstructive. Moderate formed stool throughout the colon. Resolution of the previously described small bowel distention. Surgical clips of the upper abdomen with partially imaged sternotomy wires. There is no organomegaly. Multiple pelvic basin calcifications redemonstrated, unchanged. Renal shadows are mostly obscured by bowel gas. No pneumoperitoneum or pneumatosis. No fracture. Degenerative changes of the spine, pelvis and hips. IMPRESSION: 1. Redemonstration of multiple pelvic basin calcifications. One of these calcifications may represent the previously described 4 mm calculus of the right ureterovesicular junction. 2. Suggested constipation. 3. Resolution of the previously described small bowel dilation. Electronically signed by: Beny Matthews M.D. 02/24/2018 9:01 AM Dictated Date/Time: 02/24/2018 8:58 AM
[2018-02-24] MEDS: TAMSULOSIN HCL 0.4 MG CAP PO SCH (09:15)
[2018-02-24 09:16] VITALS: BP 161/93; PULSE 62
[2018-02-24] MEDS: CARVEDILOL 25 MG TAB PO SCH (09:17)
[2018-02-24] MEDS: AMLODIPINE BESYLATE 5 MG TAB PO SCH (09:17)
[2018-02-24] MEDS: ISOSORBIDE MONONITRATE 60 MG TABCR PO SCH (09:18)
--- NOTE | 2018-02-24 10:17 | Progress Note ---
Progress Note Date of Service Feb 24, 2018. Progress Note Patient is afebrile vital signs are stable Currently not having any pain She said she did have some pain yesterday evening She is not sure if the stone passed or not Exam Abdomen soft nontender No flank pain currently I reviewed the KUB from today I cannot really say that I see a stone Patient would like to go home although she is very worried that if the stone is still there the pain will reoccur Cannot see it on a KUB someone a repeat the CAT scan She does have a cardiac history and has been having angina at home so before giving her any type of general anesthetic I would want her cleared by cardiology I did tell her if the stone is still present I could put a stent in under sedation which would not remove the stone but would unblock the kidney if indeed it is obstructed She would like to repeat the CAT scan to see if the stone is there
--- NOTE | 2018-02-24 11:17 | DIAGNOSTIC IMAGING REPORT ---
ABDOMEN AND PELVIS CT WITHOUT CONTRAST CT DOSE: 1112.44 mGy.cm HISTORY: Acute right flank pain with right ureteral calculus. stone TECHNIQUE: Multiaxial CT images of the abdomen and pelvis were performed without contrast. A dose lowering technique was utilized adhering to the principles of ALARA. COMPARISON STUDY: KUB of same day, CT 02/18/2018. FINDINGS: Linear subsegmental atelectasis or scarring of the lung bases, notably within the inferior segment lingula. There is no pneumatosis or pneumoperitoneum identified. Imaged inferior cardiac chambers appear normal in size. Prior median sternotomy. Coronary arterial calcifications with partially imaged pacer leads. Mural fibrofatty changes about the left ventricular apex from remote myocardial infarction. Prior cholecystectomy. Liver is unremarkable. No intrahepatic biliary ductal dilation or suspicious liver mass lesions. Spleen and adrenal glands are unremarkable. 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 Fatty attenuating 9 mm lesion of the anterior interpolar right kidney compatible with angiomyolipoma. Moderate right-sided hydroureteronephrosis with reactive perinephric and periureteral inflammatory stranding redemonstrated. Distal migration of the 4 x 3 x 5 mm calculus of the distal right ureter, now at the level of the distal ureterovesicular junction, image 432 series 3. Left ureter and bladder are unremarkable. 1.3 cm cystic lesion about the interpolar left kidney suggests renal cyst. Prior hysterectomy. Mild dependent free pelvic fluid. Multiple phleboliths of the pelvis. Extensive calcification of the aorta with mild infrarenal ectasia, 2.5 x 2.6 cm. No pathologically enlarged lymph nodes identified. No bowel obstruction or focal bowel wall thickening. Colonic diverticulosis without diverticulitis. Mild to moderate formed stool throughout the colon suggests constipation. Terminal ileum is unremarkable. Prior appendectomy. Soft tissues are unremarkable. Imaged breast parenchyma is within normal limits. Degenerative changes of the hips and spine. The bones appear demineralized. Partially imaged meningioma T7. Moderate severe disc space narrowing at L5-S1. IMPRESSION: 1. Mild migration of the 5 mm calculus of the distal right ureter, now at the level of the distal ureterovesicular junction. There is persistent moderate right-sided hydroureteronephrosis. 2. No bowel obstruction or focal bowel wall thickening. 3. Colonic diverticulosis without diverticulitis. 4. Prior cholecystectomy, appendectomy and hysterectomy. 5. Trace free pelvic fluid, possibly reactive. 6. Additional findings as above. Electronically signed by: Beny Matthews M.D. 02/24/2018 11:15 AM Dictated Date/Time: 02/24/2018 11:05 AM
[2018-02-24 11:31] VITALS: BP 158/91
--- NOTE | 2018-02-24 11:44 | Progress Note ---
Progress Note Date of Service Feb 24, 2018. Progress Note Patient had a repeat CT scan showing the 4 mm stone is passing through the intramural tunnel and is almost into the bladder I showed her the films at this point I think it would be best just to let her pass this on her own The only thing she requested when she goes home and she would like something stronger than ibuprofen which she was given in the ER I will give her a prescription for Percocet She is stable for discharge from a urologic perspective she should follow-up in our office Strain her urine and bring the stone if she catches it
[2018-02-24 14:07] VITALS: BP 158/91; PULSE 62; TEMP 36.6; O2SAT 93
--- NOTE | 2018-02-24 14:27 | Discharge Instructions ---
Discharge Instructions Date of Service Feb 24, 2018. Admission Reason for Admission: Kidney Stone, Renal Colic On Rt Side Activity Recommendations . Current Hospital Diet Patient's current hospital diet: Regular Diet Medical Emergencies . Who to Call and When: Medical Emergencies: If at any time you feel your situation is an emergency, please call 911 immediately. . Non-Emergent Contact . . "Provider Documentation" section prepared by Susan Waddell. .
--- NOTE | 2018-02-24 14:30 | Discharge Instructions ---
Discharge Instructions Date of Service Feb 24, 2018. Admission Reason for Admission: Kidney Stone, Renal Colic On Rt Side Discharge Discharge Diagnosis / Problem: RENAL STONE Discharge Goals Goal(s): Decrease discomfort, Improve function, Increase independence, Improve disease control, Diagnostic testing Activity Recommendations Activity Limitations: resume your previous activity . Instructions / Follow-Up Instructions / Follow-Up HOSPITAL FOLLOW UP :03/05/2018 11:20 AM Payam Escalona DO General Internal Medicine [facility] UROLOGY FOLLOW UP WITH DR ZHU IN 1-2 WEEKS , Current Hospital Diet Patient's current hospital diet: Regular Diet Discharge Diet Recommended Diet: Regular Diet Pending Studies Studies pending at discharge: no Medical Emergencies . Who to Call and When: Medical Emergencies: If at any time you feel your situation is an emergency, please call 911 immediately. . Non-Emergent Contact Non-Emergency issues call your: Primary Care Provider . . "Provider Documentation" section prepared by Susan Waddell. .
--- NOTE | 2018-02-24 14:45 | Discharge Summary ---
Discharge Summary Date of Service Feb 24, 2018. Discharge Summary Admission Date: Feb 23, 2018 at 04:43 Discharge Date: Feb 24, 2018 Discharge Disposition: Home Principal Diagnosis: RENAL STONE Procedures: CT ABDOMEN PELVIS WITHOUT CONTRAST: 1. Mild migration of the 5 mm calculus of the distal right ureter, now at the level of the distal ureteropelvic junction There is a persistent moderate right-sided hydroureteronephrosis. 2. No bowel obstruction or focal bowel wall thickening. 3. Colonic diverticulosis without diverticulitis. 4. Prior cholecystectomy, appendectomy and hysterectomy. 5. Trace free pelvic fluid, possibly reactive. RENAL ULTRASOUND 02/23/2018 1. Right-sided hydronephrosis and perinephric fluid. 2. Suspected obstructive 7 mm right UVJ calculus Consultations: UROLOGY -DR ZHU Medication Reconciliation New Medications: Oxycodone/Acetaminophen 5MG/325MG (Percocet 5MG/325MG) Tab 1-2 TABLETS PO UD PRN for Pain, #20 TAB 1-2 tablets every 4-6 hrs as needed for pain Continued Medications: Amlodipine Besylate (Amlodipine Besylate) 5 Mg Tab 5 MG PO QAM, TAB Aspirin (Aspirin Ec) 81 Mg Tab 81 MG PO HS PT WILL CHECK WITH PCP FOR INSTRUCTIONS Carvedilol (Coreg) 25 Mg Tab 25 MG PO BID, TAB Dicyclomine Hcl (Bentyl) 10 Mg Cap 1 CAP PO TID PRN for ABDOMINAL PAIN for 30 Days, #90 CAP 1 Refill Furosemide (Lasix) 20 Mg Tab 20 MG PO DAILY PRN for FLUID RETENTION, TAB Isosorbide Mononitrate Ext Rel (Imdur Ext Rel) 60 Mg Ertab 60 MG PO BID, TAB Levothyroxine Sodium (Levothyroxine Sodium) 50 Mcg Tab 1 TAB PO QAM, TAB 3 Refills Nitroglycerin (Nitrostat) 0.4 Mg Tab 0.4 MG UT PRN, BTL Nitroglycerin (Nitrostat) 0.4 Mg Tab 0.4 MG UT UD PRN for Chest Pain, BTL Omeprazole (Prilosec) 20 Mg Capcr 20 MG PO DAILY Ondansetron Hcl (Zofran) 4 Mg Tab 4 MG SL TID PRN for Nausea, TAB Tamsulosin HCl (Tamsulosin HCl) 0.4 Mg Cap 1 TAB PO DAILY Warfarin Sodium (Coumadin) 5 Mg Tab 0.5 TAB PO 6XWK, TAB 3 Refills Warfarin Sodium (Coumadin) 5 Mg Tab 5 MG PO WK, TAB pt takes the full 5mg tab once per week on Discontinued Medications: Ciprofloxacin HCl (Ciprofloxacin Hydrochlori) 500 Mg Tab 1 TAB PO TID for 10 Days Ibuprofen (Motrin) 600 Mg Tab 600 MG PO TID PRN for Pain take with food Referrals At Discharge Follow up Referrals: Urologist Referral - Please Call For Appointment with Isaias Zhu MD Admission Information HPI (per Admitting provider): DATE OF ADMISSION: 02/23/2018 CHIEF COMPLAINT: Right flank pain. HISTORY OF PRESENT ILLNESS: This is a 77-year-old female with past medical history significant for CAD status post CABG, status post stents; history of atrial fibrillation status post pacemaker; irritable bowel syndrome; GERD; history of DVT; history of PE; hyperlipidemia; hypertension; hypothyroidism, presents with right flank pain. The patient was in the ER last Sunday with right flank pain and found to have 4 mm right UPJ junction stone and she was discharged on Flomax and pain medication. The patient says the pain is not controlled. She was getting on and off severe pain,with nausea and vomiting, feeling chills. She came to the ER today and imaging studies unofficial report says the stone is still present. Currently, pain is controlled with pain medications and nausea is controlled with antiemetics. Resting comfortably and hemodynamically stable. Denies any headaches. No dizziness, no blurred vision, no earache, no runny nose, no sore throat, no cough, no shortness of breath, no chest pain, no abdominal pain. Appetite is not that good since last few days. Constipated since last few days. No obvious blood in the urine, no burning sensation while micturition. Has chronic left lower extremity swelling. No rash. ALLERGIES: TO IODINATED DIAGNOSTIC AGENTS, LISINOPRIL, LORATADINE, PREDNISONE. PAST MEDICAL HISTORY: As mentioned above. PAST SURGICAL HISTORY: Left core breast biopsy, CABG, EGD with endoscopic ultrasound, eyelid surgery, knee arthroscopy, laparoscopic cholecystectomy, appendectomy, cataract surgery, tonsillectomy, adenoidectomy, shoulder surgery, total hysterectomy with bilateral salpingo-oophorectomy. MEDICATIONS: The patient is on Cipro 500 mg p.o. b.i.d., hydrocodone/acetaminophen 5/325 mg one tablet every 6 hours p.r.n. for pain, ibuprofen 600 mg p.o. q. 6 hours p.r.n., Zofran 4 mg p.o. t.i.d. p.r.n., Flomax 0.4 mg p.o. daily, Imdur 60 mg p.o. daily, nitroglycerin 0.4 mg sublingual p.r.n., Coreg 25 mg p.o. b.i.d., Bentyl 10 mg p.o. q.i.d. p.r.n., amlodipine 5 mg p.o. daily, omeprazole 20 mg p.o. daily, levothyroxine 50 mcg p.o. daily, Coumadin 5 mg on and 2.5 mg all other days, Lasix 20 mg daily p.r.n., aspirin enteric-coated 81 mg p.o. daily. FAMILY HISTORY: Significant for mother had seizures and stroke. SOCIAL HISTORY: . No smoking history. No alcohol. No drug abuse. Physical Exam (per Admitting): REVIEW OF SYMPTOMS: As per HPI. Rest of review of symptoms negative. PHYSICAL EXAMINATION: GENERAL: Patient is of moderate built, not in distress. VITAL SIGNS: Temperature 36.9, pulse 66, respiratory rate 16, blood pressure 135/104, oxygen 98% on room air. HEENT: No pallor, no icterus. Pupils equal, round, and reactive to light. NECK: No JVD, no neck masses, no carotid bruits. CARDIOVASCULAR: S1, S2 heard, regular rate and rhythm, no murmur, no gallop. RESPIRATORY SYSTEM: Clear to auscultation bilaterally. No wheezing, no crackles. ABDOMEN: Soft, bowel sounds present. Nontender. No distention. No CVA tenderness. CENTRAL NERVOUS SYSTEM: Cranial nerves II-XII grossly intact. Nonfocal. EXTREMITIES: Trace right and left lower extremity edema. No erythema seen. Hospital Course Abdomen pain and discomfort has completely resolved since yesterday . No nausea, no fever or chills Evaluated by urology today Repeat CT abdomen pelvis shows stone on distal distal ureter, increased chance of passage of stone spontaneously Stable to be discharged home today Outpatient follow-up with urology PHYSICAL EXAM General: No sign of distress, alert awake winded 3, comfortable HEENT: Sclera nonicteric, pupils bilateral equal reactive to light extraocular muscles intact Neck: Supple no JVD, no carotid bruit Heart: Regular S1 and S2 no murmur gallop Lungs: Clear to auscultate, no wheeze or rales Abdomen: Soft nontender, no CVA tenderness Extremity: No lower extremity edema or calf tenderness Neuro: Alert awake with 3 no focal neurological deficit Last 8 Hrs Date Time Temp Pulse Resp B/P (MAP) Pulse Ox O2 Delivery O2 Flow Rate FiO2 02/24/18 14:07 36.6 62 17 93 Room Air 02/24/18 11:31 158/91 (113) Right flank pain/renal stone Presented with right flank pain, symptom resolved after IV fluids No evidence of infection Evaluated urology for further recommendation Appreciate input Repeat CT abdomen pelvis without contrast today 02/24/2018 shows: Mild migration of the 5 mm calculus of the distal right ureter at the level of the distal ureteral vesicle junction. -Given the position of the stone patient will be able to pass it spontaneously very likely -Does not have any pain symptoms of fever Stable to be discharged home Outpatient follow-up with urology HYPERTENSION Blood pressure stable, continue Coreg, amlodipine HYPOTHYROIDISM Continue Synthroid HISTORY OF A. FIB Rate and rhythm control, continue beta-sumi On Coumadin, INR therapeutic Coumadin has been on hold for possible urologic procedure Resumed on discharge today DVT prophylaxis: SCD and teds, embolus DISPOSITION Stable to be discharged home today Total time spent on discharge = 35 mins This includes examination of the patient, discharge planning, medication reconciliation, and communication with other providers. Discharge Instructions Discharge Instructions Date of Service Feb 24, 2018. Admission Reason for Admission: Kidney Stone, Renal Colic On Rt Side Discharge Discharge Diagnosis / Problem: RENAL STONE Discharge Goals Goal(s): Decrease discomfort, Improve function, Increase independence, Improve disease control, Diagnostic testing Activity Recommendations Activity Limitations: resume your previous activity . Instructions / Follow-Up Instructions / Follow-Up HOSPITAL FOLLOW UP :03/05/2018 11:20 AM Payam Escalona DO General Internal Medicine [facility] UROLOGY FOLLOW UP WITH DR ZHU IN 1-2 WEEKS , Current Hospital Diet Patient's current hospital diet: Regular Diet Discharge Diet Recommended Diet: Regular Diet Pending Studies Studies pending at discharge: no Medical Emergencies . Who to Call and When: Medical Emergencies: If at any time you feel your situation is an emergency, please call 911 immediately. . Non-Emergent Contact Non-Emergency issues call your: Primary Care Provider . . "Provider Documentation" section prepared by Susan Waddell. . Additional Copies To Payam Escalona D.O. Oselinsky, David MD
[2018-02-24] MEDS ORDERED: OXYC-57 PO (15:26)
[2018-02-27] MEDS ORDERED: ACET-1138 PO (11:41)
[2018-02-27] MEDS ORDERED: CPR500 PO (11:41)
[2018-02-27] MEDS ORDERED: FLM4 PO (11:41)
[2018-02-27] MEDS ORDERED: RXC5 PO (11:41)
== END 2018-02-24 15:38 | disposition home or self-care (01) | DRG 694 ==
LOC: EDBD 01:35 → C.EDA 01:38 → C.MSN 04:43 → ENRESERV 05:35
PROVIDERS: ADMIT Internal Medicine; ATTEND Hospitalist
DX: N20.0 Calculus of kidney (principal); I48.91 Unspecified atrial fibrillation; I25.10 Atherosclerotic heart disease of native coronary artery without angina pectoris; K21.9 Gastro-esophageal reflux disease without esophagitis; E03.9 Hypothyroidism, unspecified; K58.9 Irritable bowel syndrome, unspecified; I10 Essential (primary) hypertension; F17.200 Nicotine dependence, unspecified, uncomplicated; Z79.01 Long term (current) use of anticoagulants; Z79.82 Long term (current) use of aspirin; Z79.899 Other long term (current) drug therapy; Z91.041 Radiographic dye allergy status; Z86.711 Personal history of pulmonary embolism; Z86.718 Personal history of other venous thrombosis and embolism

== ENCOUNTER 2019-02-14 10:55 | Inpatient (IN) ==
--- NOTE | 2019-02-14 11:24 | Emergency Department Note ---
Entered by Lissette Mike acting as a scribe for History of Present Illness General Chief complaint: Chest Pain Time Seen by Provider: 02/14/19 10:59 Source: patient Mode of arrival: ambulatory Limitations: no limitations History of Present Illness Onset (ago): month(s) 3 Location: chest Radiation: non-radiation Pain Consistency: + intermittent Maximum Pain Intensity: 6 Current Pain Intensity: 6 Relieved By: + medication (Nitroglycerin) Exacerbated By: + none Associated symptoms: + weakness and + other (+diarrhea) Treatments prior to arrival: other (Nitroglycerin) The patient is a 78 year old female who presents to the ED with complaints of intermittent chest pain for the past few months. This morning upon waking, her pain returned and worsened, so she came to the ED. She rates her pain as a 6/10 in severity. Nitroglycerin provided minimal relief. She has experienced diarrhea for the past 4 days and also complains of increased weakness. She thinks she is having at least 3 episodes of diarrhea a day. She has a history of atrial fibrillation and follows with [facility]. She reports she was recently placed on Ranexa. She does take daily Coumadin. Home Medications Home Medications Medication Instructions Recorded Confirmed Type amlodipine 5 mg PO HS 03/19/18 02/14/19 History aspirin 1 tab PO QPM 03/19/18 02/14/19 History dicyclomine 10 mg PO DAILY PRN 03/19/18 02/14/19 History furosemide [Lasix] 20 mg PO DAILY PRN 03/19/18 02/14/19 History isosorbide mononitrate 60 mg PO BID 03/19/18 02/14/19 History levothyroxine 50 mcg PO QAM 03/19/18 02/14/19 History nitroglycerin 1 tab SUBLINGUAL UD PRN 03/19/18 02/14/19 History omeprazole 40 mg PO QAM 03/19/18 02/14/19 History carvedilol phosphate [Coreg CR] 40 mg PO QAM 11/02/18 02/14/19 History warfarin [Coumadin] 2.5 mg PO 6XWK 11/02/18 02/14/19 History warfarin [Coumadin] 5 mg PO WK 11/02/18 02/14/19 History acetaminophen [Tylenol] 325 mg PO Q6H PRN 02/14/19 02/14/19 History ranitidine HCl 150 mg PO HS 02/14/19 02/14/19 History ranolazine 500 mg PO BID 02/14/19 02/14/19 History sucralfate 1,000 mg PO BID 02/14/19 02/14/19 History Allergies Allergy/AdvReac Type Severity Reaction Status Date / Time prednisone Allergy Severe GI Verified 02/14/19 12:25 PAIN-LED TO PANCREATITIS Iodinated Contrast- Oral and Allergy Unknown HIVES-ANAPH Verified 02/14/19 12:25 IV Dye YLACTIC losartan Allergy Unknown NAUSEA AND Verified 02/14/19 12:25 VOMITING ranitidine Allergy Unknown NAUSEA AND Verified 02/14/19 12:25 VOMITING,ACHY rosiglitazone AdvReac Severe BLOOD CLOTS Verified 02/14/19 12:25 Past Med/Surg History Medical History Atrial fibrillation DX 1982. ORAL MEDS CAD (coronary artery disease) GERD (gastroesophageal reflux disease) Hearing deficit Hyperlipidemia Hypertension Hypothyroidism IBS (irritable bowel syndrome) Kidney stones Osteoarthritis Osteoporosis Pacemaker PLACED 2005. [employer]. LAST CHECKED APPROX 2 MONTHS AGO. REASON? DR. LOUIS. Pancreatitis TIA (transient ischemic attack) Surgical History History of appendectomy History of arthroscopy KNEE, SHOULDER History of cardiac cath 2006 - ABNORMAL STRESS TEST - 3 STENTS PLACED. 2009 -CP - ANAPHYLAXIS FROM DYE - FOLLOWS W/ DR. LOUIS History of cataract surgery History of cholecystectomy History of coronary artery bypass graft 2006 [facility] - 3 VESSELS - FOLLOWS W/ DR. LOUIS History of hysterectomy History of salpingo-oophorectomy History of tonsillectomy Status post wrist surgery Social History Preferred Language: Lithuanian Communication Ability: Effective Priest Required: No Beliefs That Will Affect Care: None Current Living Situation: Spouse Current Living Situation Comment: SON LIVES WITH PT Feels Safe at Home: Yes Smoking Status: Never smoker Second Hand Exposure: Yes ([employer] IN GARAGE) ; Hx Alcohol Use: No Hx Substance Use: No Review of Systems See HPI for pertinent positives & negatives. and A total of 10 systems reviewed and were otherwise negative Physical Exam Vital Signs Vital Signs - 24 hr 02/14/19 11:05 02/14/19 11:31 02/14/19 11:34 Sepsis Recent Fever Within 48 Hours No Sepsis New/Unexplained Change in Mental Status No Sepsis Action Taken by Nursing No Action Required Pulse Rate 155 H Pulse Rate [Apical] 106 H Respiratory Rate 20 20 Blood Pressure 122/89 Blood Pressure [Right Arm] 127/94 Blood Pressure Mean 100 Blood Pressure Mean [Right Arm] 105 Pulse Oximetry 95 92 95 Oxygen Delivery Method Room Air Room Air Room Air 02/14/19 11:36 02/14/19 11:45 02/14/19 12:25 Sepsis Recent Fever Within 48 Hours Sepsis New/Unexplained Change in Mental Status Sepsis Action Taken by Nursing Pulse Rate 140 H Pulse Rate [Apical] 141 H 137 H 103 H Respiratory Rate 18 18 16 Blood Pressure 124/103 H Blood Pressure [Right Arm] 124/103 H 120/89 112/81 Blood Pressure Mean Blood Pressure Mean [Right Arm] 110 99 91 Pulse Oximetry 91 93 92 Oxygen Delivery Method Room Air Room Air Room Air 02/14/19 13:09 02/14/19 13:54 02/14/19 14:33 Sepsis Recent Fever Within 48 Hours Sepsis New/Unexplained Change in Mental Status Sepsis Action Taken by Nursing Pulse Rate Pulse Rate [Apical] 141 H 130 H 113 H Respiratory Rate 16 16 16 Blood Pressure Blood Pressure [Right Arm] 124/92 123/102 H 120/70 Blood Pressure Mean Blood Pressure Mean [Right Arm] 102 109 86 Pulse Oximetry 91 91 91 Oxygen Delivery Method Room Air Room Air Room Air CONSTITUTIONAL/VITAL SIGNS: Reviewed / noted above. GENERAL: Non-toxic in appearance. INTEGUMENTARY: Warm, dry, and [place]. HEAD: Normocephalic. EYES: without scleral icterus or trauma. ENT/OROPHARYNX: clear and moist. LYMPHADENOPATHY/NECK: Is supple without lymphadenopathy or meningismus. RESPIRATORY: Lungs clear and equal. CARDIOVASCULAR: Tachycardic heart rate, irregular rhythm. GI/ABDOMEN: Soft and nontender. No organomegaly or pulsatile mass. No rebound or guarding. Normal bowel sounds. EXTREMITIES: Warm and well perfused. BACK: No CVA tenderness. NEUROLOGICAL: Intact without focal deficits. PSYCHIATRIC: normal affect. MUSCULOSKELETAL: Normally developed with good muscle tone. Course 1111: The patient was evaluated in room A11B and a complete history and physical were performed. 1312: I reevaluated the patient. I discussed her results and my recommendation she remain in the hospital for further evaluation and management and she verbalized complete understanding and agreement. 1318: I discussed the patients case with SAHIL Antonio [facility] Hospitalist. The patient will be further evaluated. Consultations Consultation #1: I discussed the patients case with SAHIL Antonio, [facility] Hospitalist. The patient will be further evaluated. Time: 13:18 Administered Medications Diltiazem HCl 125 mg/ Dextrose 125 mls @ 0 mls/hr IV .Q0M NICK; Protocol Stop: 03/16/19 13:14 Last Admin: 02/14/19 13:50 Dose: 5 mg/hr, 5 mls/hr Documented by: [id number] Cosigned by: [id number] Potassium Chloride (K Tylor / Wtr) 10 meq in 100 mls @ 100 mls/hr IV Q1H NICK Stop: 02/14/19 18:14 Last Admin: 02/14/19 14:33 Dose: 100 mls/hr Documented by: [id number] Metoprolol Tartrate (Lopressor) 5 mg IV Q5M PRN PRN Reason: Tachycardia Stop: 03/16/19 11:18 Last Admin: 02/14/19 11:36 Dose: 5 mg Documented by: [id number] Admin: 02/14/19 11:31 Dose: 5 mg Documented by: [id number] Discontinued Medications Dexamethasone Sodium Phosphate (Decadron Pf) 10 mg IM NOW ONE Stop: 02/14/19 11:32 Last Admin: 02/14/19 12:16 Dose: Not Given Documented by: [id number] Diltiazem HCl (Cardizem) 20 mg IV NOW STA Stop: 02/14/19 13:15 Last Admin: 02/14/19 13:49 Dose: 20 mg Documented by: [id number] Cosigned by: [id number] Sodium Chloride (Nss) 500 mls @ 999 mls/hr IV .Q31M NICK Stop: 02/14/19 12:00 Last Infusion: 02/14/19 12:12 Dose: 0 mls/hr Documented by: [id number] Admin: 02/14/19 11:31 Dose: 999 mls/hr Documented by: [id number] Potassium Chloride (Klor-Con M20) 40 meq PO NOW STA Stop: 02/14/19 13:57 Last Admin: 02/14/19 14:33 Dose: 40 meq Documented by: [id number] Medical Decision Making Differential Diagnosis Differential diagnoses includes but is not limited to acute coronary syndrome, myocardial infarction, pericarditis, pulmonary embolus, aortic dissection, pne umonia, pneumothorax, musculoskeletal, shingles, esophageal. Medical Records Attestation: I reviewed the patient's medical records. Home Medications Current Medication List: was personally reviewed by me Laboratory Data Attestation: I reviewed the patient's lab results. Result diagrams: 02/14/19 10:32 02/14/19 10:32 Lab Results 02/14/19 02/14/19 02/14/19 Range/Units 10:32 10:32 10:32 WBC 6.12 (4.8-10.8) K/uL RBC 4.77 (4.2-5.4) M/uL Hgb 14.5 (12.0-16.0) g/dL Hct 41.6 (37-47) % MCV 87.2 (80-100) fL MCH 30.4 (25-34) pg MCHC 34.9 (32-36) g/dL RDW Std Deviation 45.8 (36.4-46.3) fL RDW Coeff of [place] 14.2 (11.5-14.5) % Plt Count 190 (130-400) K/uL MPV 12.0 H (7.4-10.4) fL Immature Gran % (Auto) 0.3 % Neut % (Auto) 52.8 % Lymph % (Auto) 24.0 % [place] % (Auto) 20.4 % Eos % (Auto) 2.0 % Baso % (Auto) 0.5 % Immature Gran # (Auto) 0.02 (0.00-0.02) K/uL Neut # (Auto) 3.23 (1.4-6.5) K/uL Lymph # (Auto) 1.47 (1.2-3.4) K/uL [place] # (Auto) 1.25 H (0.11-0.59) K/uL Eos # (Auto) 0.12 (0-0.5) K/uL Baso # (Auto) 0.03 (0-0.2) K/uL PT (9.0-12.0) Seconds INR (0.9-1.1) Sodium 140 (136-145) mmol/L Potassium 2.8 L (3.5-5.1) mmol/L Chloride 105 (98-107) mmol/L Carbon Dioxide 24 (21-32) mmol/L Anion Gap 11.0 (3-11) BUN 11 (7-18) mg/dl Creatinine 1.05 (0.6-1.2) mg/dl Est Cr Clr Drug Dosing 51.1 ml/min Est GFR ( Amer) 58.5 Est GFR (Non-Af Amer) 50.5 BUN/Creatinine Ratio 10.9 (10-20) Glucose 165 H (70-99) mg/dl Calcium 9.1 (8.5-10.1) mg/dl Magnesium 1.9 (1.8-2.4) mg/dl Total Bilirubin 0.5 (0.2-1) mg/dl AST 13 L (15-37) U/L ALT 18 (12-78) U/L Alkaline Phosphatase 96 (45-117) U/L Troponin I < 0.015 (0-0.045) ng/ml Total Protein 6.9 (6.4-8.2) gm/dl Albumin 3.2 L (3.4-5.0) gm/dl Globulin 3.7 (2.5-4.0) gm/dl Albumin/Globulin Ratio 0.9 (0.9-2) /16/ Range/Units 13:27 WBC (4.8-10.8) K/uL RBC (4.2-5.4) M/uL Hgb (12.0-16.0) g/dL Hct (37-47) % MCV (80-100) fL MCH (25-34) pg MCHC (32-36) g/dL RDW Std Deviation (36.4-46.3) fL RDW Coeff of [place] (11.5-14.5) % Plt Count (130-400) K/uL MPV (7.4-10.4) fL Immature Gran % (Auto) % Neut % (Auto) % Lymph % (Auto) % [place] % (Auto) % Eos % (Auto) % Baso % (Auto) % Immature Gran # (Auto) (0.00-0.02) K/uL Neut # (Auto) (1.4-6.5) K/uL Lymph # (Auto) (1.2-3.4) K/uL [place] # (Auto) (0.11-0.59) K/uL Eos # (Auto) (0-0.5) K/uL Baso # (Auto) (0-0.2) K/uL PT 34.3 H (9.0-12.0) Seconds INR 3.7 H (0.9-1.1) Sodium (136-145) mmol/L Potassium (3.5-5.1) mmol/L Chloride (98-107) mmol/L Carbon Dioxide (21-32) mmol/L Anion Gap (3-11) BUN (7-18) mg/dl Creatinine (0.6-1.2) mg/dl Est Cr Clr Drug Dosing ml/min Est GFR ( Amer) Est GFR (Non-Af Amer) BUN/Creatinine Ratio (10-20) Glucose (70-99) mg/dl Calcium (8.5-10.1) mg/dl Magnesium (1.8-2.4) mg/dl Total Bilirubin (0.2-1) mg/dl AST (15-37) U/L ALT (12-78) U/L Alkaline Phosphatase (45-117) U/L Troponin I (0-0.045) ng/ml Total Protein (6.4-8.2) gm/dl Albumin (3.4-5.0) gm/dl Globulin (2.5-4.0) gm/dl Albumin/Globulin Ratio (0.9-2) Imaging Data Radiologist's Impression: Radiology results as stated below per my review and the radiologist's interpretation: XR chest 1V portable HISTORY: Atypical Chest Pain COMPARISON: Chest 11/02/2018. FINDINGS: Left-sided dual-chamber pacemaker. Poststernotomy changes. The heart is normal in size. Old, healed right humeral neck fracture. No pneumothorax. No pleural effusions. There are low lung volumes. Diffuse interstitial thickening, unchanged. Hazy appearance to the left lateral lung base. IMPRESSION: 1. Hazy appearance to the left lateral lung base. This may represent atelectasis or developing opacity. 2. Stable chronic interstitial thickening. Electronically signed by: Preston Schroeder M.D. 02/14/2019 11:35 AM ECG Data Attestation: I personally reviewed and interpreted this ECG as follows: Indication: chest pain Rate (beats per minute): 130 Rhythm: atrial fibrillation Findings: + ST depression (Inferior, Lateral) Blood Pressure Blood Pressure Findings: Normal blood pressure Blood Pressure Disposition: did not require urgent referral MDM Narrative This is a 78-year-old female who presents to the ED with a chief complaint of chest pain since this morning. The patient states that she took some nitro around 9 AM which did not help. She also reports that she has had diarrhea for the past 4 days or so. She has not been going multiple times per day. She states that she also noticed some palpitations this morning in addition to the chest tightness. She has a history of A. fib and is on Coumadin for this. The patient's heart rhythm on my evaluation reveals A. fib with a heart rate of 130- 150. The patient is otherwise in no acute distress. The patient's chest x-ray reveals a left hazy lung base. She did not have any clinical findings to suggest pneumonia at this time. CBC is normal. Chemistry panel was unr emarkable and troponin was negative. The patient was treated with 50 mg of IV Lopressor and some IV fluids. The patient's heart rate remained in the 1 30-1 40 range in A. fib. IV Cardizem bolus and Cardizem drip was ordered. The patient's heart rate did improve with this. The patient will be seen by the hospitalist for further evaluation and care. Impression & Plan Atrial fibrillation with RVR Critical Care Time Critical Care Time: Yes Total Critical Care Time: 34 I have personally spent 34 minutes of critical care time in the direct management of this patient. This includes bedside care, interpretation of diagnostic studies, and testing, discussion with consultants, patient, and family members, and other required patient management activities. This 35 minutes is in excess of all separately billable procedures. Discharge Plan Visit Data Chief Complaint: Chest Pain ED Provider: Mir Gamez Discharge Problem: Atrial fibrillation with RVR Patient Disposition: Being Evaluated by Hospitalist Forms Stand Alone Forms: Call Back Authorization, My [facility] Prescriptions Prescriptions: No Action amlodipine 5 mg Tablet 5 mg PO HS RF: 0 omeprazole 40 mg Capsule,Delayed Release(Dr/Ec) 40 mg PO QAM RF: 0 aspirin 81 mg Tablet,Delayed Release (Dr/Ec) 1 tab PO QPM RF: 0 isosorbide mononitrate 60 mg Tablet Extended Release 24 Hr 60 mg PO BID RF: 0 levothyroxine 50 mcg Tablet 50 mcg PO QAM RF: 0 nitroglycerin 0.4 mg Tablet, Sublingual 1 tab Sublingual UD PRN (Reason: Chest Pain) RF: 0 furosemide [Lasix] 20 mg Tablet 20 mg PO DAILY PRN (Reason: Edema) RF: 0 dicyclomine 10 mg Capsule 10 mg PO DAILY PRN (Reason: Gi Upset) RF: 0 warfarin [Coumadin] 5 mg tablet 2.5 mg PO 6XWK RF: 0 warfarin [Coumadin] 5 mg tablet 5 mg PO WK RF: 0 carvedilol phosphate [Coreg CR] 40 mg capsule, ER multiphase 24 hr 40 mg PO QAM RF: 0 acetaminophen [Tylenol] 325 mg Tablet 325 mg PO Q6H PRN (Reason: Pain) RF: 0 sucralfate 1 gram tablet 1,000 mg PO BID RF: 0 ranitidine HCl 150 mg tablet 150 mg PO HS RF: 0 ranolazine 500 mg tablet extended release 12 hr 500 mg PO BID RF: 0 Referrals Referrals: Payam Escalona, [Primary Care Provider] - The scribe's documentation has been prepared under my direction and personally reviewed by me in its entirety. I confirm that the note above accurately refl ects all work, treatment, procedures, and medical decision making performed by me.
[2019-02-14 11:28] LABS: Basophils # (auto) 0.03 K/uL (0-0.2); Basophils % (auto) 0.5 %; Eosinophils # (auto) 0.12 K/uL (0-0.5); Hematocrit (blood only) 41.6 % (37-47); Hemoglobin 14.5 g/dL (12.0-16.0); Immature Granulocytes # (auto) 0.02 K/uL (0.00-0.02); Immature Granulocytes % (auto) 0.3 %; Lymphocytes # (auto) 1.47 K/uL (1.2-3.4); Mean Corpuscular Hgb Conc 34.9 g/dL (32-36); Mean Corpuscular Volume 87.2 fL (80-100); Monocytes # (auto) 1.25 K/uL (0.11-0.59); Monocytes % (auto) 20.4 %; Neutrophils # (auto) 3.23 K/uL (1.4-6.5); Neutrophils % (auto) 52.8 %; Platelet Count 190 K/uL (130-400); RDW Coefficient of Variation 14.2 % (11.5-14.5); RDW Standard Deviation 45.8 fL (36.4-46.3); Red Blood Count 4.77 M/uL (4.2-5.4); White Blood Count 6.12 K/uL (4.8-10.8)
[2019-02-14] MEDS ORDERED: SODIUM CHLORIDE 0.9% 500 ML IV SCH (11:30)
[2019-02-14] MEDS: METOPROLOL TARTRATE 1 MG/ML VIAL IV PRN ×2 (11:31→11:36)
[2019-02-14] MEDS ORDERED: DEXAMETHASONE **PF** INJ 10 MG/ML VIAL IM ONE (11:31)
--- NOTE | 2019-02-14 11:36 | XRay Report ---
XR chest 1V portable HISTORY: Atypical Chest Pain COMPARISON: Chest 11/02/2018. FINDINGS: Left-sided dual-chamber pacemaker. Poststernotomy changes. The heart is normal in size. Old , healed right humeral neck fracture. No pneumothorax. No pleural effusions. There are low lung volum es. Diffuse interstitial thickening, unchanged. Hazy appearance to the left lateral lung base. IMPRESSION: 1. Hazy appearance to the left lateral lung base. This may represent atelectasis or developing opacit y. 2. Stable chronic interstitial thickening. Electronically signed by: Preston Schroeder M.D. 02/14/2019 11:35 AM
[2019-02-14 11:42] LABS: Alanine Aminotransferase 18 U/L (12-78); Albumin Level 3.2 gm/dl (3.4-5.0); Aspartate Aminotransferase 13 U/L (15-37); BUN Creatinine Ratio 10.9 (10-20); Blood Urea Nitrogen 11 mg/dl (7-18); Calcium 9.1 mg/dl (8.5-10.1); Carbon Dioxide 24 mmol/L (21-32); Chloride 105 mmol/L (98-107); Creatinine Clr Calc Pharmacy 51.1 ml/min; Est GFR (African American) 58.5; Est GFR (Non-African American) 50.5; Glucose 165 mg/dl (70-99); Potassium 2.8 mmol/L (3.5-5.1); Sodium 140 mmol/L (136-145)
[2019-02-14 11:47] LABS: Albumin Globulin Ratio 0.9 (0.9-2); Alkaline Phosphatase 96 U/L (45-117); Bilirubin,Total 0.5 mg/dl (0.2-1); Globulin 3.7 gm/dl (2.5-4.0); Total Protein 6.9 gm/dl (6.4-8.2); Troponin I < 0.015 ng/ml (0-0.045)
[2019-02-14] MEDS ORDERED: dilTIAZem HCl 5 MG/ML 5 ML VIAL IV STA (13:14)
[2019-02-14] MEDS: dilTIAZem HCl 125 MG in DEXTROSE 5% 100 ML IV SCH ×2 (13:50→19:52)
[2019-02-14 13:55] LABS: Prothrombin Time 34.3 Seconds (9.0-12.0)
[2019-02-14] MEDS ORDERED: POTASSIUM CHLORIDE 20 MEQ TABCR PO STA (13:56)
[2019-02-14 14:00] LABS: INR 3.7 (0.9-1.1)
[2019-02-14] MEDS: POTASSIUM CHLORIDE / WTR 10 MEQ/100 ML PLCT IV SCH ×3 (14:33→20:13)
--- NOTE | 2019-02-14 15:51 | History & Physical Report ---
Date of Service February 14, 2019 Assessment & Plan (1) Atrial fibrillation with RVR: (2) Elevated troponin: (3) CAD (coronary artery disease): -Admit to telemetry -Patient presenting from home with reports of chest tightness/discomfort radiating into both arms and palpitations -In the ED, found to be in atrial fibrillation with RVR with rates in the 150s -Patient with history of paroxysmal atrial fibrillation, CAD S/P CABG x3 and PCI x3 (done at [facility], unknown vessels) -Received metoprolol 5 mg IV x2 in the ED without improvement rates, then received diltiazem 20 mg IV bolus and placed on a drip -subsequently heart rates have improved and patient is currently paced, will DC Cardizem drip -Suspect the patient's atrial fibrillation was exacerbated by hypokalemia (K+ 2.8) -Second troponin elevated at 2.44 -likely demand ischemia in the setting of tachycardia; continue cycle cardiac enzymes, resting echo in the morning -Not a candidate for cardiac catheterization secondary to anaphylactic shock secondary to contrast in the past -Anticoagulated on Coumadin, INR 3.7 -Continue aspirin, beta-sumi, nitrate, Ranexa; patient has declined statins in the past -Cardiology consult, case discussed with Dr. Mercado and Dr. Stephens (4) Hypokalemia: -K+ 2.8 -Likely secondary to GI losses with diarrhea -Mg+ 1.9 -Replace, follow electrolytes (5) Diarrhea: -Abdominal exam currently benign -? Viral gastroenteritis -Check for C. difficile and stool culture (6) SSS (sick sinus syndrome): (7) Pacemaker: -Currently no acute issues -Pacer interrogation (8) DVT (deep venous thrombosis): (9) Pulmonary embolism: -Anticoagulated Coumadin, INR 3.7 (10) Hypothyroidism: -Continue levothyroxine (11) GERD (gastroesophageal reflux disease): -Continue sucralfate, H2 sumi, PPI (12) DVT prophylaxis: -Anticoagulated on Coumadin, INR 3.7 History of Present Illness Chief Complaint: Chest pain, palpitations Primary Care Provider: Payam Escalona DO 78-year-old female who presents to the ED with chest pain and palpitations. Patient reports she has somewhat chronic palpitations of been going on for the past few months. She also has history of chronic chest pain in which she takes sublingual nitroglycerin for. This morning, patient reports she had chest pain and palpitations that were much worse than her usual symptoms. Patient reports a centralized chest pressure with radiation of the discomfort into both of her arms. She also had associated palpitations. She took a sublingual nitroglycerin without resolution of her symptoms. EMS was then called and patient was brought to the ED for further evaluation. Patient reports she has been having diarrhea for the past 5 days. She reports some associated abdominal cramping with it. She has had a poor appetite and nausea however no vomiting. She denies bright red bleeding per rectum or dark tarry stools. No fevers or chills. She denies lightheadedness, dizziness, diaphoresis, syncopal events. No urinary symptoms. In the ED, patient was found to be in A. fib with RVR with rates in the 150s. Patient was initially treated with metoprolol 5 mg x 2 however without improvement in rates. She was then given diltiazem 20 mg IV bolus and started on a drip and heart rate is currently in the 90s to low 100s. Labs show hypokalemia with K+ 2.8. Patient was also given IVF and I have ordered potassium replacement. Allergies Allergy/AdvReac Type Severity Reaction Status Date / Time prednisone Allergy Severe GI Verified 02/14/19 12:25 PAIN-LED TO PANCREATITIS Iodinated Contrast- Oral and Allergy Unknown HIVES-ANAPH Verified 02/14/19 12:25 IV Dye YLACTIC losartan Allergy Unknown NAUSEA AND Verified 02/14/19 12:25 VOMITING ranitidine Allergy Unknown NAUSEA AND Verified 02/14/19 12:25 VOMITING,ACHY rosiglitazone AdvReac Severe BLOOD CLOTS Verified 02/14/19 12:25 Home Medications Home Medications Medication Instructions Recorded Confirmed Type amlodipine 5 mg PO HS 03/19/18 02/14/19 History aspirin 1 tab PO QPM 03/19/18 02/14/19 History dicyclomine 10 mg PO QID PRN 03/19/18 02/14/19 History furosemide [Lasix] 20 mg PO DAILY PRN 03/19/18 02/14/19 History isosorbide mononitrate 60 mg PO BID 03/19/18 02/14/19 History levothyroxine 50 mcg PO QAM 03/19/18 02/14/19 History nitroglycerin 1 tab SUBLINGUAL UD PRN 03/19/18 02/14/19 History carvedilol phosphate [Coreg CR] 40 mg PO QAM 11/02/18 02/14/19 History warfarin [Coumadin] 2.5 mg PO DAILY 11/02/18 02/14/19 History acetaminophen [Tylenol] 325 mg PO Q6H PRN 02/14/19 02/14/19 History omeprazole 20 mg PO DAILY 02/14/19 02/14/19 History ranitidine HCl 150 mg PO HS 02/14/19 02/14/19 History ranolazine 500 mg PO BID 02/14/19 02/14/19 History sucralfate 1,000 mg PO BID 02/14/19 02/14/19 History Past Med/Surg History Medical History 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) CAD (coronary artery disease) (Chronic) "s/p CABG x 3, PCI x 3" Hypothyroidism (Chronic) GERD (gastroesophageal reflux disease) (Chronic) DVT (deep venous thrombosis) (Chronic) Pulmonary embolism (Chronic) Dyslipidemia (Chronic) HTN (hypertension) (Chronic) Atrial fibrillation (Chronic) IPMN (intraductal papillary mucinous neoplasm) (Chronic) SSS (sick sinus syndrome) (Chronic) Pacemaker (Chronic) Surgical History Hx of cataract surgery (Chronic) Hx of tonsillectomy (Chronic) Hx of adenoidectomy (Chronic) Hx of appendectomy (Chronic) S/P CABG x 3 (Chronic) Hx of cholecystectomy (Chronic) History of hysterectomy (Chronic) S/P BSO (bilateral salpingo-oophorectomy) (Chronic) Hx of hemorrhoidectomy (Chronic) H/O arthroscopy of knee (Chronic) H/O arthroscopy of shoulder (Chronic) Family History Mother Stroke Social History Preferred Language: Yi Communication Ability: Effective Shop Helper Required: No Beliefs That Will Affect Care: None Current Living Situation: Spouse and Family Current Living Situation Comment: SON LIVES WITH PT Other Information That Helps Us Care for You: No Feels Safe at Home: Yes Safety Concerns: Feels Safe At This Time Smoking Status: Never smoker Do You Dip or Chew Tobacco: No ; Second Hand Exposure: No ; Tobacco Cessation Education Requested by Patient: No Hx Alcohol Use: No Hx Substance Use: No Review of Systems Review of Systems: ROS per HPI, all other systems reviewed and negative Physical Exam Constitutional: WD/WN, vitals as above Eyes: PERRL, conjunctivae normal, anicteric sclerae ENMT: external ear and nose normal, oropharynx normal Respiratory: normal respiratory effort, lungs clear to auscultation Cardiovascular: Rate/Rhythm: + tachycardic and + irregularly irregular Vessels: normal peripheral pulses Extremities: no edema Gastrointestinal (Abdomen): normal bowel sounds, soft, nontender, no hepatosplenomegaly Musculoskeletal: no cyanosis or clubbing, extremities motor strength 5/5 Skin: no rashes, warm and dry Neurologic: PERRL, EOMI, accommodation nl, no face palsy, no dysarthria Psychiatric: A+Ox3, euthymic affect Results & Data Vital Signs (Past 12 Hours) Vital Signs Pulse Pulse Resp BP BP Pulse Ox 02/14/19 14:33 113 H 16 120/70 91 02/14/19 13:54 130 H 16 123/102 H 91 02/14/19 13:09 141 H 16 124/92 91 02/14/19 12:25 103 H 16 112/81 92 02/14/19 11:45 137 H 18 120/89 93 02/14/19 11:36 140 H 141 H 18 124/103 H 124/103 H 91 02/14/19 11:34 95 02/14/19 11:31 106 H 20 127/94 92 02/14/19 11:05 155 H 20 122/89 95 Laboratory Results Short CBC 02/14/19 Range/Units 10:32 WBC 6.12 (4.8-10.8) K/uL Hgb 14.5 (12.0-16.0) g/dL Hct 41.6 (37-47) % Plt Count 190 (130-400) K/uL BMP 02/14/19 10:32 Sodium 140 Potassium 2.8 L Chloride 105 Carbon Dioxide 24 BUN 11 Creatinine 1.05 Glucose 165 H Calcium 9.1 Cardiac Enzymes 02/14/19 02/14/19 Range/Units 10:32 17:12 Troponin I < 0.015 2.440 H* (0-0.045) ng/ml Liver Function 02/14/19 Range/Units 10:32 Total Bilirubin 0.5 (0.2-1) mg/dl AST 13 L (15-37) U/L ALT 18 (12-78) U/L Alkaline Phosphatase 96 (45-117) U/L Albumin 3.2 L (3.4-5.0) gm/dl Diagnostic Findings CXR IMPRESSION: 1. Hazy appearance to the left lateral lung base. This may represent atelectasis or developing opacity. 2. Stable chronic interstitial thickening. Code Status & VTE Plan Code Status Patient is a full code as per my discussion with her. VTE Prophylaxis Plan VTE Prophylaxis will be ordered: Yes Supervising Physician Co-Signing Physician Notes Attending addendum: The patient was seen and examined in emergency room She has significant cardiac history including status post CABG x3 and PCI x3 details of which is unknown at this time She presented to ER with chest tightness and discomfort radiation to both arms with palpitation Noted to have A. fib with RVR and low potassium at presentation She has been having diarrhea for the last 5 days On exam No apparent distress at rest Hemodynamically stable, heart rate is controlled Chest-clear to auscultate bilaterally Heart-,S1-S2 irregular Abdomen-benign Extremities-no edema Admission labs, imaging studies and EKG reviewed Hypokalemia and A. fib with RVR noted Has been getting potassium replacements and started on Cardizem drip Later on reverted to sinus rhythm and the drip was stopped Noted to have high troponin without any EKG changes and she has been anticoa gulated Agree with assessment and plan as outlined above by Park Malik
[2019-02-14] MEDS ORDERED: ACETAMINOPHEN 325 MG TAB PO PRN (16:29)
[2019-02-14] MEDS ORDERED: DICYCLOMINE HCL 10 MG CAP PO PRN (16:29)
[2019-02-14] MEDS ORDERED: POTASSIUM CHLORIDE 20 MEQ/15 ML UDC PO STA (18:46)
[2019-02-14] MEDS ORDERED: POTASSIUM CHLORIDE 20 MEQ TABCR PO ONE (20:30)
[2019-02-14] MEDS ORDERED: MAGNESIUM SULFATE / D5W 1 GM/100 ML BAG IV ONE (20:30)
[2019-02-14] MEDS: AMLODIPINE BESYLATE 5 MG TAB PO SCH ×2 (20:47→20:55)
[2019-02-14] MEDS: SUCRALFATE 1 GM TAB PO SCH (20:48)
[2019-02-14] MEDS: ISOSORBIDE MONO EXTENDED REL 60 MG TABCR PO SCH (20:48)
[2019-02-14] MEDS: ASPIRIN 81 MG ECTAB PO SCH (20:49)
[2019-02-14] MEDS: RANOLAZINE 500 MG ER TAB PO SCH (20:49)
[2019-02-14 22:48] LABS: Albumin Globulin Ratio 0.9 (0.9-2); Albumin Level 2.8 gm/dl (3.4-5.0); BUN Creatinine Ratio 8.5 (10-20); Bilirubin,Total 0.5 mg/dl (0.2-1); Calcium 8.6 mg/dl (8.5-10.1); Creatinine Clr Calc Pharmacy 61.3 ml/min; Est GFR (African American) 73.4; Est GFR (Non-African American) 63.4; Globulin 3.1 gm/dl (2.5-4.0); Potassium 3.5 mmol/L (3.5-5.1); Total Protein 5.9 gm/dl (6.4-8.2)
[2019-02-14 23:07] LABS: Troponin I 4.71 ng/ml (0-0.045)
[2019-02-15] MEDS: LEVOTHYROXINE SODIUM 50 MCG TABLET PO SCH (06:06)
[2019-02-15 06:38] LABS: Hematocrit (blood only) 36.3 % (37-47); Mean Corpuscular Hgb Conc 33.1 g/dL (32-36); Mean Corpuscular Volume 88.3 fL (80-100); Mean Platelet Volume 11.3 fL (7.4-10.4); Platelet Count 176 K/uL (130-400); RDW Coefficient of Variation 14.3 % (11.5-14.5); RDW Standard Deviation 46.6 fL (36.4-46.3); Red Blood Count 4.11 M/uL (4.2-5.4); White Blood Count 5.69 K/uL (4.8-10.8)
[2019-02-15 06:46] LABS: Prothrombin Time 36.3 Seconds (9.0-12.0)
[2019-02-15 06:54] LABS: INR 3.9 (0.9-1.1)
[2019-02-15 07:10] LABS: BUN Creatinine Ratio 9.4 (10-20); Calcium 8.8 mg/dl (8.5-10.1); Creatinine Clr Calc Pharmacy 63.4 ml/min; Est GFR (African American) 76.6; Est GFR (Non-African American) 66.1; Magnesium 2.2 mg/dl (1.8-2.4); Potassium 3.6 mmol/L (3.5-5.1)
[2019-02-15 07:17] LABS: Troponin I 3.07 ng/ml (0-0.045)
[2019-02-15 07:18] LABS: Partial Thromboplastin Ratio 1.7
[2019-02-15] MEDS ORDERED: LOPERAMIDE HCL 2 MG CAP PO PRN (07:50)
[2019-02-15] MEDS ORDERED: LOPERAMIDE HCL 2 MG CAP PO STA (07:50)
[2019-02-15] MEDS: PANTOprazole 40 MG TAB PO SCH (07:53)
[2019-02-15] MEDS: SUCRALFATE 1 GM TAB PO SCH ×2 (07:53→21:20)
[2019-02-15] MEDS: RANOLAZINE 500 MG ER TAB PO SCH ×2 (07:53→21:21)
[2019-02-15] MEDS: ISOSORBIDE MONO EXTENDED REL 60 MG TABCR PO SCH ×2 (07:53→21:22)
[2019-02-15] MEDS ORDERED: CARVEDILOL PHOSPHATE 40 MG PO SCH (09:00)
[2019-02-15] MEDS ORDERED: PERFLUTREN LIPID MICROSPHERE (DEFINITY) IV ONE (09:17)
[2019-02-15] MEDS: CARVEDILOL 12.5 MG TAB PO SCH ×2 (09:18→21:21)
[2019-02-15] MEDS: dilTIAZem HCL 30 MG TAB PO SCH ×3 (09:18→21:21)
--- NOTE | 2019-02-15 10:04 | Cardiology Consultation ---
Date of Consultation February 15, 2019 Assessment & Plan (1) Atrial fibrillation with RVR: Patient converted back to sinus rhythm after receiving potassium supplementation and IV diltiazem. Conversion occurred at 5:17 PM on 02/14/2019. She has been feeling well in the interim with no angina and no sensation of subjective palpitations. She is typically treated with carvedilol CR 40 mg daily. This is not on formulary at this institution, we will therefore transition her to short acting carvedilol 12.5 mg twice daily for the time being, however if there are issues with hypotension, an alternative would be to transition her to metoprolol for heart rate and angina support as it has less profound blood pressure effect. For the time being I am going to also discontinue her amlodipine in favor of starting short acting diltiazem for blood pressure treatment, vasodilatation/treatment of her angina, and heart rate suppression not offered by the amlodipine. Her pacemaker will provide heart rate support to prevent bradycardia. 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 No other recent prolonged episodes noted. In terms of stroke prophylaxis, continue chronic Coumadin therapy, although it will be held today as her INR is above 3.5, with level 3.9. (2) Hypokalemia: Improved with supplementation, likely low due to diarrhea. Will provide another 20 mEq of oral supplementation this morning. (3) Diarrhea: Continue supportive care. C. difficile toxin negative. (4) Non-ST elevation (NSTEMI) myocardial infarction: Patient with non-ST segment elevation microinfarction, troponin peaked 4.7 and is trended down in the interim to 3.07. Patient presented with sensation of palpitations, on and off again chest pressure, and ST segment depression was noted on the initial EKG that also revealed atrial fibrillation with rapid ventricular response. The patient has a long-standing history of chronic exertional angina dating back to at least her most recent cardiac catheterization in 2010. I think this is likely a supply demand mismatch event in setting of atrial fibrillation with rapid ventricular response and fixed chronic coronary heart disease. I do not think this event represents an acute intracoronary plaque rupture as her EKG and symptoms have resolved with resolution of the tachycardia. Continue prior to hospital dose of aspirin. Carvedilol, diltiazem, isosorbide mononitrate, and her Ranexa. Her QT interval is normal this morning. She is not on statin therapy due to her chronic preference. An echocardiogram has been completed with findings of normal left ventricular w all motion without regional wall motion abnormalities, normal LVEF in the range of 60-65%. History of Present Illness Attending Physician: Kevin Ruiz MD History of Present Illness Mrs Lozoya is a 78 year old female seen in cardiology consultation per the request of SAHIL Antonio for the evaluation of atrial fibrillation. Her primary rampman is Dr. Shaffer of our practice although I had previously seen the patient in emergency department consultation a few months ago in October 2018 when she presented with an exacerbation of her chronic exertional angina. At that time, ranolazine was added to her medication regimen and this is helped her significantly and she reports less frequent angina. At the time of her recent cardiology follow-up visit with Dr. Shaffer a few days ago on 02/11/2019 she had reported only to recent use of sublingual nitroglycerin. She had reported however that since starting the Kelly Garima that she feels dizzy with her medications, the tentative plan was for her to change the timing of her amlodipine dose to the evening and reduce the dose from 5 mg to 2.5 mg. In the meantime however she developed diarrhea 5 days ago. She believes that one night she had a fever and some chills that resolved after Tylenol. She denies any blood in her stool, but has not been able to tolerate any food for several days. Chemistry panel have been performed as an outpatient on 02/12/2019 revealing creatinine of 1.2 and potassium level 3.7. Yesterday, 02/14/2019 she states that at around 7:30 AM she was getting up and she felt an abrupt change in her status with sensation of racing heart rate and on and off again chest pressure. This persisted and ultimately she presented to the emergency room with initial EKG having been performed on 02/14/2019 1103 that revealed atrial fibrillation with rapid ventricular response and significant inferior and lateral ST segment depression. The patient received a bolus of IV diltiazem and then was placed on a diltiazem infusion, and by 5:17 PM she reverted back to sinus rhythm as documented on telemetry. Follow-up EKG tracings performed yesterday at 5:39 PM revealed sinus rhythm with atrial pacing and resolution of the previously noted ST segment changes. The corrected QT interval on the sinus rhythm EKG was normal at 414 ms. Repeat EKG this morning at 6:54 AM revealed sinus rhythm with atrial pacing once again the previously noted repolarization changes have resolved. At the time my assessment, the patient had been just up to the bathroom, and with minimal exertion, sinus rhythm in the range of 95 to 105 bpm was noted with atrial pacing with walking. Significant hypokalemia was noted on presentation yesterday with potassium of 2.8 mmol/L at 10:32 AM which is since improved to 3.6 mmol/L this morning. Her initial troponin yesterday morning at 1032 was within normal limits, but then trended up to 2.44 at 5:12 PM, and then 4.7 at 10:10 PM, and as improved to 3.07 ng/ml on most recent check this morning 02/15/2019 at 6:01 AM. Currently the patient is comfortable. She reports no recent diarrhea, no recent fever chills, no chest pain at present since her atrial fibrillation has resolved. PAST MEDICAL HISTORY: 1.Coronary artery disease with stable class II exertional angina, status post remote CABG x3 (BROWN to LAD,SVG to diag, SVG to OM, SVG to R PDA and SVG to distal RCA) 2.History of anaphylaxis to contrast dye with last catheterization despite pretreatment with benadryl and IV solu-cortef, at time of most recent cardiac catheterization performed in [place], 09/13/10. At that time , severe diffuse [place] vessel disease reported, The BROWN to LAD was patent, SVG to diag was patent, SVG to OM diffuse disease, SVG to PAD and SVG to distal RCA both occluded. Report describes rash that developed after contrast administration, therefore an additional dose of 100 mg of IV Solu-Cortef was administered as well as an additional dose of 25 mg of IV Benadryl. Despite these interventions the patient developed profound hypotension for which she received IV epinephrine for blood pressure support. 3.Sick sinus syndrome status post permanent pacemaker placement. 4.Paroxysmal atrial fibrillation 5.History of DVT and pulmonary embolus. 6.Hypertension. 7.Hyperlipidemia with history of declining statin therapy. Allergies Allergy/AdvReac Type Severity Reaction Status Date / Time prednisone Allergy Severe GI Verified 02/14/19 12:25 PAIN-LED TO PANCREATITIS Iodinated Contrast- Oral and Allergy Unknown HIVES-ANAPH Verified 02/14/19 12:25 IV Dye YLACTIC losartan Allergy Unknown NAUSEA AND Verified 02/14/19 12:25 VOMITING ranitidine Allergy Unknown NAUSEA AND Verified 02/14/19 12:25 VOMITING,ACHY rosiglitazone AdvReac Severe BLOOD CLOTS Verified 02/14/19 12:25 Home Medications Home Medications Medication Instructions Recorded Confirmed Type amlodipine 5 mg PO HS 03/19/18 02/14/19 History aspirin 1 tab PO QPM 03/19/18 02/14/19 History dicyclomine 10 mg PO QID PRN 03/19/18 02/14/19 History furosemide [Lasix] 20 mg PO DAILY PRN 03/19/18 02/14/19 History isosorbide mononitrate 60 mg PO BID 03/19/18 02/14/19 History levothyroxine 50 mcg PO QAM 03/19/18 02/14/19 History nitroglycerin 1 tab SUBLINGUAL UD PRN 03/19/18 02/14/19 History carvedilol phosphate [Coreg CR] 40 mg PO QAM 11/02/18 02/14/19 History warfarin [Coumadin] 2.5 mg PO DAILY 11/02/18 02/14/19 History acetaminophen [Tylenol] 325 mg PO Q6H PRN 02/14/19 02/14/19 History omeprazole 20 mg PO DAILY 02/14/19 02/14/19 History ranitidine HCl 150 mg PO HS 02/14/19 02/14/19 History ranolazine 500 mg PO BID 02/14/19 02/14/19 History sucralfate 1,000 mg PO BID 02/14/19 02/14/19 History Patient History Medical History 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) CAD (coronary artery disease) (Chronic) "s/p CABG x 3, PCI x 3" Hypothyroidism (Chronic) GERD (gastroesophageal reflux disease) (Chronic) DVT (deep venous thrombosis) (Chronic) Pulmonary embolism (Chronic) Dyslipidemia (Chronic) HTN (hypertension) (Chronic) Atrial fibrillation (Chronic) IPMN (intraductal papillary mucinous neoplasm) (Chronic) SSS (sick sinus syndrome) (Chronic) Pacemaker (Chronic) Surgical History Hx of cataract surgery (Chronic) Hx of tonsillectomy (Chronic) Hx of adenoidectomy (Chronic) Hx of appendectomy (Chronic) S/P CABG x 3 (Chronic) Hx of cholecystectomy (Chronic) History of hysterectomy (Chronic) S/P BSO (bilateral salpingo-oophorectomy) (Chronic) Hx of hemorrhoidectomy (Chronic) H/O arthroscopy of knee (Chronic) H/O arthroscopy of shoulder (Chronic) Family History Mother Stroke Social History Preferred Language: Romanian Communication Ability: Effective Halal Butcher Required: No Beliefs That Will Affect Care: None Current Living Situation: Spouse and Family Current Living Situation Comment: SON LIVES WITH PT Other Information That Helps Us Care for You: No Feels Safe at Home: Yes Safety Concerns: Feels Safe At This Time Smoking Status: Never smoker Do You Dip or Chew Tobacco: No ; Second Hand Exposure: No ; Tobacco Cessation Education Requested by Patient: No Hx Alcohol Use: No Hx Substance Use: No Review of Systems Review of Systems: All systems reviewed & are unremarkable except as noted in HPI & below Physical Exam Physical Exam: Temp Pulse Resp BP Pulse Ox 36.6 C 65 20 122/77 94 02/15/19 07:44 02/15/19 07:44 02/15/19 07:44 02/15/19 07:44 02/15/19 07:44 Respiratory: normal respiratory effort, lungs clear to auscultation Cardiovascular: RRR, no murmur, no edema Heart Sounds: normal S1 and normal S2 Gastrointestinal (Abdomen): normal bowel sounds, soft, nontender, no hepatosplenomegaly Neurologic: moves all extremities and + focal motor deficit Results & Data Vital Signs (Past 12 Hours) Vital Signs Temp Pulse Pulse Resp BP BP Pulse Ox 02/15/19 07:44 36.6 C 65 20 122/77 94 02/15/19 03:39 36.4 C L 60 16 116/75 93 02/15/19 00:48 68 02/14/19 23:28 37.1 C 65 16 113/73 93 Laboratory Results Cardiac Enzymes 02/14/19 02/14/19 02/14/19 Range/Units 10:32 17:12 22:10 AST 13 L 23 (15-37) U/L Troponin I < 0.015 2.440 H* 4.710 H* (0-0.045) ng/ml 02/15/19 02/15/19 Range/Units 06:01 06:01 AST (15-37) U/L Troponin I 3.070 H* Cancelled (0-0.045) ng/ml Coagulation 02/14/19 02/15/19 02/15/19 Range/Units 13:27 06:01 06:01 PT 34.3 H 36.3 H (9.0-12.0) Seconds APTT 47.0 H* (21.0-31.0) Seconds CBC 02/14/19 02/15/19 Range/Units 10:32 06:01 WBC 6.12 5.69 (4.8-10.8) K/uL RBC 4.77 4.11 L (4.2-5.4) M/uL Hgb 14.5 12.0 (12.0-16.0) g/dL Hct 41.6 36.3 L (37-47) % Plt Count 190 176 (130-400) K/uL Neut # (Auto) 3.23 (1.4-6.5) K/uL Lymph # (Auto) 1.47 (1.2-3.4) K/uL Vance # (Auto) 1.25 H (0.11-0.59) K/uL Eos # (Auto) 0.12 (0-0.5) K/uL Baso # (Auto) 0.03 (0-0.2) K/uL Comprehensive Metabolic Panel 02/14/19 02/14/19 02/15/19 Range/Units 10:32 22:10 06:01 Sodium 140 141 142 (136-145) mmol/L Potassium 2.8 L 3.5 D 3.6 (3.5-5.1) mmol/L Chloride 105 109 H 110 H (98-107) mmol/L Carbon Dioxide 24 27 29 (21-32) mmol/L BUN 11 7 8 (7-18) mg/dl Creatinine 1.05 0.87 0.84 (0.6-1.2) mg/dl Glucose 165 H 102 H 102 H (70-99) mg/dl Calcium 9.1 8.6 8.8 (8.5-10.1) mg/dl AST 13 L 23 (15-37) U/L ALT 18 18 (12-78) U/L Alkaline Phosphatase 96 77 (45-117) U/L Total Protein 6.9 5.9 L (6.4-8.2) gm/dl Albumin 3.2 L 2.8 L (3.4-5.0) gm/dl Intake and Output 02/14/19 02/15/19 02/15/19 22:59 06:59 14:59 Intake Total 805.375 / 1305.375 99.625 / 99.625 Output Total 2 / 2 Balance 805.375 / 1303.375 -2 / 1303.375 99.625 / 99.625 Intake: IV 225.375 / 725.375 99.625 / 99.625 MAGNESIUM SULFATE / D5W 1 gm In 100 / 100 100 ml @ 100 mls/hr IV 2030 ONE Rx#:[id number] K RIDER / WTR 10 meq In 100 ml 100 / 100 @ 100 mls/hr IV Q1H [facility] Rx#: [id number] Cardizem 125 mg In D5 100 ml @ 25.375 / 25.375 99.625 / 99.625 0 MG/HR IV .Q0M [facility] Rx#: [id number] Oral 580 / 580 Output: # Bowel Movements 2 / 2 Other: # Unmeasured Voids 4 2 Weight 92.6 kg 92.5 kg Diagnostic Findings EKG tracings and telemetry as noted in the [facility] Echocardiogram performed this morning 02/15/2019 reviewed independently: Sinus rhythm mid 60 bpm range was present during the echocardiogram study. There is mild concentric left ventricular hypertrophy. No regional wall motion abnormalities noted. Left ventricular systolic function is normal. The LV ejection fraction = 60-65%. The left atrium is borderline dilated. There is mild tricuspid regurgitation. Doppler findings as well as 2D findings do not suggest pulmonary hypertension. The estimated pulmonary artery systolic pressure= 34 mm Hg. The right ventricle is normal in size and function. Medications Administered Current Inpatient Medications Acetaminophen (Tylenol) 650 mg PO Q4H PRN PRN Reason: Pain or Fever Stop: 03/16/19 16:28 Aspirin (Ecotrin Ectab) 81 mg PO QPM [facility] Stop: 03/16/19 20:59 Last Admin: 02/14/19 20:49 Dose: 81 mg Documented by: Carvedilol (Coreg) 12.5 mg PO BID NICK Stop: 03/17/19 08:59 Last Admin: 02/15/19 09:18 Dose: 12.5 mg Documented by: Diltiazem HCl (Cardizem) 30 mg PO TID NICK Stop: 03/17/19 08:59 Last Admin: 02/15/19 09:18 Dose: 30 mg Documented by: Isosorbide Mononitrate (Imdur Extended Rel) 60 mg PO BID NICK Stop: 03/16/19 20:59 Last Admin: 02/15/19 07:53 Dose: 60 mg Documented by: Levothyroxine Sodium (Synthroid) 50 mcg PO DAILYBB [facility] Stop: 03/17/19 06:29 Last Admin: 02/15/19 06:06 Dose: 50 mcg Documented by: Loperamide HCl (Imodium) 2 mg PO Q12H PRN PRN Reason: Diarrhea Stop: 03/17/19 07:49 Pantoprazole Sodium (Protonix) 40 mg PO DAILY NICK Stop: 03/17/19 08:59 Last Admin: 02/15/19 07:53 Dose: 40 mg Documented by: Ranitidine HCl (Zantac) 150 mg PO HS [facility] Stop: 03/16/19 20:59 Last Admin: 02/14/19 20:50 Dose: 150 mg Documented by: Ranolazine (Ranexa) 500 mg PO BID NICK Stop: 03/16/19 20:59 Last Admin: 02/15/19 07:53 Dose: 500 mg Documented by: Sucralfate (Carafate Tab) 1 gm PO BID NICK Stop: 03/16/19 20:59 Last Admin: 02/15/19 07:53 Dose: 1 gm Documented by:
[2019-02-15] MEDS ORDERED: POTASSIUM CHLORIDE 20 MEQ TABCR PO ONE (10:30)
--- NOTE | 2019-02-15 10:37 | Hospitalist Progress Note ---
Date of Service February 15, 2019 Assessment & Plan (1) Atrial fibrillation with RVR: -admitted on 02/14/19 with atrial fibrillaton and rapid ventricular response and converted back to sinus rhythm after receiving potassium supplementation and IV diltiazem, Conversion occurred at 5:17 PM on 02/14/2019. -Her pacemaker was interrogated via remote connection on 02/14/19 -as per cardiology evaluation, transition her to short acting carvedilol 12.5 mg twice daily, however cardiology may consider using alternative beta sumi such as metoprolol in the future -as per cardiology evaluation, discontinue amlodipine and start short acting diltiazem for blood pressure treatment, vasodilatation/treatment of her angina, and heart rate suppression not offered by the amlodipine. -continue to hold coumadin dose as INR was elevated on admission day of 02/14/19 as 3.5 and still high on 02/15/19 as 3.9 (2) Elevated troponin: Non-ST elevation (NSTEMI) myocardial infarction -non-ST segment elevation microinfarction as described by cardiology note on 02/15/19 -patient's troponins peaked at 4.7 on this admission and is now downtrending, patient's INR supratherapeutic during this time -as per cardiology evaluation the elevated troponins are from a supply demand mismatch event in setting of atrial fibrillation with rapid ventricular response and fixed chronic coronary heart disease. unlikely to be an acute intracoronary plaque rupture as her EKG and symptoms have resolved with resolution of the tachycardia. Continue prior to hospital dose of aspirin. Carvedilol, diltiazem, isosorbide mononitrate, and her Ranexa. Patient is not on statin therapy due to her chronic preference. -An echocardiogram has been completed with findings of normal left ventricular wall motion without regional wall motion abnormalities, normal LVEF in the range of 60-65%. Supratherapeutic INR -continue to hold coumadin dose as INR was elevated on admission day of 02/14/19 as 3.5 and still high on 02/15/19 as 3.9 -supratherpeutic INR likely contributed by poor appetite associated with patient's diarrhea and likely a lack of dietary vitamin K while on coumadin at home (3) CAD (coronary artery disease): -History of Coronary artery disease with stable class II exertional angina, status post remote CABG x3 (BROWN to LAD,SVG to diag, SVG to OM, SVG to R PDA and SVG to distal RCA) -History of anaphylaxis to contrast dye with last catheterization despite pretreatment with benadryl and IV solu-cortef, at time of most recent cardiac catheterization performed in [place], 09/13/10. At that time , severe diffuse [place] vessel disease reported, The BROWN to LAD was patent, SVG to diag was patent, SVG to OM diffuse disease, SVG to PAD and SVG to distal RCA both occluded. -management as described above (4) Hypokalemia: Hypokalemia secondary to GI losses from diarrhea -admission serum potassium 2.8, admission serum magnesium is 1.9 -since admission with IV and oral supplements, serum potassium has normalized to be above 3.5 and serum magnesium above 2 -continue to monitor these electrolytes and replete as needed -loperamide given to help slow down the diarrhea (5) Diarrhea: -loperamide given to help slow down the diarrhea -C.difficile negative and stool cultures are pending (6) SSS (sick sinus syndrome): (7) Pacemaker: -Her pacemaker was interrogated via remote connection on 02/14/19 (8) DVT (deep venous thrombosis): History of deep vein thrombosis in the past -on chronic coumadin anticoagulation therapy (9) Pulmonary embolism: History of pulmonary embolism in the past -on chronic coumadin anticoagulation therapy -continue to hold coumadin in the hospital for now as INR is above 3 (10) Hypothyroidism: -Continue levothyroxine -continue to hold coumadin in the hospital for now as INR is above 3 (11) GERD (gastroesophageal reflux disease): -Continue sucralfate, H2 sumi, PPI (12) DVT prophylaxis: -on chronic coumadin anticoagulation therapy, continue to hold coumadin in the hospital for now as INR is above 3 Subjective Patient has been having normal heart rates since yesterday evening. Patient denies having chest pain since yesterday when heart rate slowed down to normal rates. no palpitations today. breathing on room air. no abdomen pain. has diarrhea reported. no vomiting Physical Exam Constitutional: comfortable Eyes: PERRL, conjunctivae normal, anicteric sclerae EOM intact bilaterally ENMT: external ear and nose normal, oropharynx normal Neck: trachea midline, no thyromegaly Respiratory: normal respiratory effort, lungs clear to auscultation Cardiovascular: Rate/Rhythm: regular rhythm and + bradycardic Gastrointestinal (Abdomen): normal bowel sounds, soft, nontender, no hepatosplenomegaly Musculoskeletal: no cyanosis or clubbing, extremities motor strength 5/5 Head/Neck/Chest: normocephalic and head atraumatic Neurologic: PERRL, EOMI, accommodation nl, no face palsy, no dysarthria CN's II-XI intact bilaterally Psychiatric: A+Ox3, euthymic affect Results & Data Vital Signs (Past 12 Hours) Vital Signs Temp Pulse Pulse Resp BP BP Pulse Ox 02/15/19 07:44 36.6 C 65 20 122/77 94 02/15/19 03:39 36.4 C L 60 16 116/75 93 02/15/19 00:48 68 02/14/19 23:28 37.1 C 65 16 113/73 93
[2019-02-15 12:14] LABS: BUN Creatinine Ratio 8.2 (10-20); Calcium 8.9 mg/dl (8.5-10.1); Creatinine Clr Calc Pharmacy 65.8 ml/min; Est GFR (African American) 80.1; Est GFR (Non-African American) 69.1
[2019-02-15 12:39] LABS: Troponin I 1.96 ng/ml (0-0.045)
[2019-02-15] MEDS: ASPIRIN 81 MG ECTAB PO SCH (21:21)
[2019-02-16 06:11] LABS: Basophils # (auto) 0.05 K/uL (0-0.2); Eosinophils # (auto) 0.13 K/uL (0-0.5); Eosinophils % (auto) 2.5 %; Hematocrit (blood only) 36.5 % (37-47); Hemoglobin 12.5 g/dL (12.0-16.0); Immature Granulocytes # (auto) 0.11 K/uL (0.00-0.02); Immature Granulocytes % (auto) 2.2 %; Lymphocytes # (auto) 1.73 K/uL (1.2-3.4); Lymphocytes % (auto) 33.9 %; Mean Corpuscular Hgb Conc 34.2 g/dL (32-36); Mean Corpuscular Volume 88.2 fL (80-100); Monocytes # (auto) 0.83 K/uL (0.11-0.59); Monocytes % (auto) 16.3 %; Neutrophils # (auto) 2.25 K/uL (1.4-6.5); Neutrophils % (auto) 44.1 %; Platelet Count 195 K/uL (130-400); RDW Coefficient of Variation 14.1 % (11.5-14.5); RDW Standard Deviation 46.4 fL (36.4-46.3); Red Blood Count 4.14 M/uL (4.2-5.4)
[2019-02-16] MEDS: LEVOTHYROXINE SODIUM 50 MCG TABLET PO SCH (06:25)
[2019-02-16 06:34] LABS: Prothrombin Time 36.1 Seconds (9.0-12.0)
[2019-02-16 06:44] LABS: BUN Creatinine Ratio 8.4 (10-20); Calcium 8.8 mg/dl (8.5-10.1); Est GFR (African American) 93.9; Potassium 3.4 mmol/L (3.5-5.1)
[2019-02-16 06:49] LABS: INR 3.9 (0.9-1.1)
[2019-02-16] MEDS ORDERED: POTASSIUM CHLORIDE 20 MEQ TABCR PO STA (07:08)
[2019-02-16] MEDS: RANOLAZINE 500 MG ER TAB PO SCH (08:10)
[2019-02-16] MEDS: PANTOprazole 40 MG TAB PO SCH (08:10)
[2019-02-16] MEDS: ISOSORBIDE MONO EXTENDED REL 60 MG TABCR PO SCH (08:10)
[2019-02-16] MEDS: dilTIAZem HCL 30 MG TAB PO SCH (08:10)
[2019-02-16] MEDS: CARVEDILOL 12.5 MG TAB PO SCH (08:11)
[2019-02-16] MEDS: POTASSIUM CHLORIDE / WTR 10 MEQ/100 ML PLCT IV ONE ×2 (08:11→08:43)
[2019-02-16] MEDS: SUCRALFATE 1 GM TAB PO SCH (08:13)
[2019-02-16] MEDS ORDERED: AZITHROMYCIN 250 MG TAB PO ONE (09:13)
--- NOTE | 2019-02-16 09:35 | Cardiology Progress Note ---
Date of Service February 16, 2019 Assessment & Plan (1) Atrial fibrillation with RVR: (2) Non-ST elevation (NSTEMI) myocardial infarction: (3) Diarrhea: (4) Hypokalemia: (5) CAD (coronary artery disease): Mrs Lozoya is a 78 year old female with a long-standing history of coronary heart disease, with chronic class II exertional angina symptoms for which she is on medication treatment including a beta-sumi, calcium channel sumi, long-acting nitrate, and Ranexa as an outpatient. She has a history of multivessel CABG. She suffered anaphylactic shock with exposure to radiographic contrast at the time of her most recent cardiac catheterization performed in [place] in [address] despite appropriate pretreatment with diphenhydramine and Solu-Cortef. In addition to her rash, she had developed profoundly low blood pressure and required support with IV epinephrine at that time. Coronary anatomy is described in my consult note from yesterday 02/15/2019. She has been treated conservatively for her chronic stable angina in the meantime and is tolerated the addition of ranolazine well which was added when I had seen her in the emergency room in Oct, 2018. She presented with several days of a diarrheal illness was found to have hypokalemia and atrial fibrillation with rapid ventricular response with associated repolarization changes with her tachycardia consistent with ischemia based of her symptoms at presentation this admission with subjective on and off again chest "tightness" and elevation in her troponin peaked at 4.7 NG per mL, is felt that she had a non-ST segment elevation microinfarction due to tachycardia in the setting of fixed underlying coronary heart disease. I do not think her presentation is suggestive of an acute intracoronary plaque rupture, as her EKG changes have resolved with improvement in her tachycardia, and her troponin is trended down to 1.96 as of yesterday at 11:48 AM with normalization of her EKG. She describes that her diarrheal illness to place after been at a picnic last week. Sinus rhythm noted last night on telemetry and again this morning without recurrence of atrial fibrillation and no ventricular arrhythmias were noted. Pacemaker interrogation performed via electronic connection was reviewed with [employer] yesterday, and documented her episode of atrial fibrillation which lasted from about 7:30 in the morning on 02/14/2019 until 5:17 PM on 02/14/2019. The patient is feeling better and is eager for discharge. She lives with her who has cognitive impairment related to dementia and her 48-year-old son. She is concerned that she needs to go home to help care for her . This was also a concern when I had seen her back in October. She is received an additional dose of oral potassium chloride 40 mEq this morning for potassium level 3.4. At this time, the patient proves that she is able to tolerate her breakfast, would consider discharging her per her preference. Cardiac medication recommendations for discharge: Aspirin 81 mg daily Isosorbide mononitrate 60 mg twice daily Coreg CR 40 mg daily in the morning Amlodipine 2.5 mg daily in evening (this dose was recently decreased from 5 mg), she will need a new prescription for this Potassium chloride 20 mEq by mouth daily Of note, despite the patient's known history of coronary heart disease and her non-ST segment elevation myocardial infarction, she is not being discharged on a statin due to her ongoing long-term preference. I had a discussion with her about this and we had a long talk regarding the benefits of statin therapy in terms of preventing future coronary heart events. She describes having been on statin agents including rosuvastatin in the past which was uptitrated to 40 mg daily, and she had debilitating muscle aches that even prevented her from turning the steering wheel in her car when driving. Discussed with her alternative dosing strategies including starting low-dose pravastatin or low- dose rosuvastatin and taking only 2 days/week as tolerated is typically a 2 day/week regimen would offer minimal side effects. She is going to think about this. She does not want to make a change at present. We discussed the option of ezetimibe. This does not have the robust data at that statin therapy has but would be more ideal than no pharmacologic treatment for dyslipidemia. This medication however has a common side effect of GI upset, and I think it is prudent for us to hold off on starting this until after her diarrhea GI upset have completely resolved. Of note she was placed on short acting carvedilol here in the hospital due to formulary issues as we did not have the long-acting carvedilol CR that she is on as an outpatient. As noted above we will transition her back to her prior to hospital beta-sumi. I also placed her on oral short acting diltiazem for further suppression of atrial fibrillation, but I think at this point, her atrial fibrillation was provoked by her diarrhea and low potassium, and I think it is most prudent to place her back on her prior to hospital regimen to include amlodipine which has served her well from an anti-angina standpoint the past. Also amlodipine does not interact with her ranolazine as the QT interval would have to be monitored closely with coadministration of diltiazem ranolazine. Her INR is 3.9 today. I would therefore hold off on Coumadin today, and if her diet is stable as of tomorrow, we can reinitiate at her prior to hospital dose tomorrow as an outpatient. Recommend outpatient follow-up with Dr. Shaffer or cardiology PA within 2 or 3 weeks. And keep her outpatient pacemaker checks as scheduled. Subjective Chief complaint: Follow-up atrial fibrillation, coronary heart disease Subjective: Patient feeling well. She has tolerated a liquid diet with resolution of her diarrhea and she is looking forward to having a regular tray for breakfast which was brought to her bedside as I was interviewing her. Telemetry reveals no additional episodes of atrial fibrillation throughout the day yesterday, overnight last night, or thus far this morning, she is atrial paced in the mid 60 bpm range. Review of Systems Review of Systems: All systems reviewed & are unremarkable except as noted in HPI & below Physical Exam Physical Exam: Temp Pulse Resp BP Pulse Ox 36.4 C L 72 18 136/85 92 02/16/19 07:14 02/16/19 07:14 02/16/19 07:14 02/16/19 07:14 02/16/19 07:14 Constitutional: WD/WN, vitals as above Respiratory: normal respiratory effort, lungs clear to auscultation no respiratory distress Cardiovascular: RRR, no murmur, no edema Vessels: no JVD Gastrointestinal (Abdomen): normal bowel sounds, soft, nontender, no hepatosplenomegaly Skin: no rashes, warm and dry Neurologic: PERRL, EOMI, accommodation nl, no face palsy, no dysarthria Results & Data Vital Signs (Past 12 Hours) Vital Signs Temp Pulse Resp BP Pulse Ox 02/16/19 07:14 36.4 C L 72 18 136/85 92 02/16/19 03:23 36.7 C 70 18 109/69 95 08/17/19 23:08 36.8 C 75 18 109/65 95 Laboratory Results Cardiac Enzymes 02/15/19 Range/Units 11:48 Troponin I 1.960 H* (0-0.045) ng/ml Coagulation 02/16/19 Range/Units 05:59 PT 36.1 H (9.0-12.0) Seconds CBC 02/16/19 Range/Units 05:59 WBC 5.10 (4.8-10.8) K/uL RBC 4.14 L (4.2-5.4) M/uL Hgb 12.5 (12.0-16.0) g/dL Hct 36.5 L (37-47) % Plt Count 195 (130-400) K/uL Neut # (Auto) 2.25 (1.4-6.5) K/uL Lymph # (Auto) 1.73 (1.2-3.4) K/uL Banks # (Auto) 0.83 H (0.11-0.59) K/uL Eos # (Auto) 0.13 (0-0.5) K/uL Baso # (Auto) 0.05 (0-0.2) K/uL Comprehensive Metabolic Panel 02/15/19 02/16/19 Range/Units 11:48 05:59 Sodium 143 143 (136-145) mmol/L Potassium 4.0 3.4 L (3.5-5.1) mmol/L Chloride 111 H 110 H (98-107) mmol/L Carbon Dioxide 29 27 (21-32) mmol/L BUN 7 6 L (7-18) mg/dl Creatinine 0.81 0.71 (0.6-1.2) mg/dl Glucose 99 98 (70-99) mg/dl Calcium 8.9 8.8 (8.5-10.1) mg/dl Intake and Output 02/15/19 02/16/19 02/16/19 22:59 06:59 14:59 Intake Total 120 / 744.625 250 / 744.625 Balance 120 / 744.625 250 / 744.625 Intake: Oral 120 / 645 250 / 645 Other: # Unmeasured Voids 2 Weight 92.4 kg Diagnostic Findings EKG performed this morning 02/16/2019 at 7:03 AM and reviewed independently: Sinus rhythm with atrial pacing at 65 bpm, no significant repolarization changes, unchanged compared to morning of 02/15/2019. Compared to her EKG noted on presentation to the emergency room, atrial fibrillation with rapid ventricular response with ST segment depression in the inferior lateral leads consider ischemia have been noted at that time and this is resolved. Medications Administered Current Inpatient Medications Acetaminophen (Tylenol) 650 mg PO Q4H PRN PRN Reason: Pain or Fever Stop: 03/16/19 16:28 Aspirin (Ecotrin Ectab) 81 mg PO QPM NICK Stop: 03/16/19 20:59 Last Admin: 02/15/19 21:21 Dose: 81 mg Documented by: Azithromycin (Zithromax) 500 mg PO QAM NICK Stop: 02/27/19 08:59 Carvedilol (Coreg) 12.5 mg PO BID NICK Stop: 03/17/19 08:59 Last Admin: 02/16/19 08:11 Dose: 12.5 mg Documented by: Diltiazem HCl (Cardizem) 30 mg PO TID NICK Stop: 03/17/19 08:59 Last Admin: 02/16/19 08:10 Dose: 30 mg Documented by: Isosorbide Mononitrate (Imdur Extended Rel) 60 mg PO BID NICK Stop: 03/16/19 20:59 Last Admin: 02/16/19 08:10 Dose: 60 mg Documented by: Levothyroxine Sodium (Synthroid) 50 mcg PO DAILYBB NICK Stop: 03/17/19 06:29 Last Admin: 02/16/19 06:25 Dose: 50 mcg Documented by: Loperamide HCl (Imodium) 2 mg PO Q12H PRN PRN Reason: Diarrhea Stop: 03/17/19 07:49 Pantoprazole Sodium (Protonix) 40 mg PO DAILY NICK Stop: 03/17/19 08:59 Last Admin: 02/16/19 08:10 Dose: 40 mg Documented by: Ranitidine HCl (Zantac) 150 mg PO HS NICK Stop: 03/16/19 20:59 Last Admin: 02/15/19 21:20 Dose: 150 mg Documented by: Ranolazine (Ranexa) 500 mg PO BID NICK Stop: 03/16/19 20:59 Last Admin: 02/16/19 08:10 Dose: 500 mg Documented by: Sucralfate (Carafate Tab) 1 gm PO BID NICK Stop: 03/16/19 20:59 Last Admin: 02/16/19 08:13 Dose: Not Given Documented by:
--- NOTE | 2019-02-16 10:37 | Hospitalist Progress Note ---
Date of Service February 16, 2019 Assessment & Plan (1) Atrial fibrillation with RVR: -admitted on 02/14/19 with atrial fibrillaton and rapid ventricular response and converted back to sinus rhythm after receiving potassium supplementation and IV diltiazem, Conversion occurred at 5:17 PM on 02/14/2019. -Her pacemaker was interrogated via remote connection on 02/14/19 -as per cardiology evaluation 02/15/19, transition her to short acting carvedilol 12.5 mg twice daily, stopped amlodipine and started short acting diltiazem for blood pressure treatment -as per cardiology re-evaluation on 02/16/19 as patient's heart rate continues to be stable, these are the medications recommended on discharge today; Aspirin 81 mg daily, Isosorbide mononitrate 60 mg twice daily, Coreg CR 40 mg daily in the morning, Amlodipine 2.5 mg daily in evening, Potassium chloride 20 mEq by mouth daily (5 day supply prescribed); as per cardiology service Patient may resume her home dose of coumadin if her diet is stable as of 02/17/19 at home (2) Elevated troponin: Non-ST elevation (NSTEMI) myocardial infarction -non-ST segment elevation microinfarction as described by cardiology note on 02/15/19 -patient's troponins peaked at 4.7 on this admission and is now downtrending, patient's INR supratherapeutic during this time -as per cardiology evaluation the elevated troponins are from a supply demand mismatch event in setting of atrial fibrillation with rapid ventricular response and fixed chronic coronary heart disease. unlikely to be an acute intracoronary plaque rupture as her EKG and symptoms have resolved with resolution of the tachycardia. Continue prior to hospital dose of aspirin. Carvedilol, diltiazem, isosorbide mononitrate, and her Ranexa. Patient is not on statin therapy due to her chronic preference. -An echocardiogram has been completed with findings of normal left ventricular wall motion without regional wall motion abnormalities, normal LVEF in the range of 60-65%. Supratherapeutic INR -continue to hold coumadin dose as INR was elevated on admission day of 02/14/19 as 3.5 and still high on 02/15/19 as 3.9 and still 3.9 on 02/16/19 -supratherpeutic INR likely contributed by poor appetite associated with patient's diarrhea and likely a lack of dietary vitamin K while on coumadin at home -as per cardiology service Patient may resume her home dose of coumadin if her diet is stable as of 02/17/19 at home -[facility] appointment line was called to try to set up appointment with coumadin clinic [facility] for patient to have INR checked on 02/18/19 and no later than 02/19/19 First hospital discharge follow up primary care appointment 02/21/2019 1:00 PM Provider Shonda Oseguera MD Department Internal Medicine [facility] Other appointments 02/25/2019 10:30 AM Provider Meghan Rasheed MD Department [facility] Surgery, [facility] 03/05/2019 3:00 PM Provider Rola Buchanan PA-C Department Cardiology, [facility] 03/07/2019 11:[address] [facility] Department Laboratory, [facility] 03/07/2019 2:30 PM Provider aMryann Sinha PA-C Department Internal Medicine [facility] 03/10/2019 7:00 AM Provider [facility] Clinic [facility] Department Pharmacy, [facility] 03/25/2019 9:00 AM Provider Pacer [facility] Department Cardiology [facility] (3) CAD (coronary artery disease): -History of Coronary artery disease with stable class II exertional angina, status post remote CABG x3 (BROWN to LAD,SVG to diag, SVG to OM, SVG to R PDA and SVG to distal RCA) -History of anaphylaxis to contrast dye with last catheterization despite pretreatment with benadryl and IV solu-cortef, at time of most recent cardiac catheterization performed in [place], 09/13/10. At that time , severe diffuse [place] vessel disease reported, The BROWN to LAD was patent, SVG to diag was patent, SVG to OM diffuse disease, SVG to PAD and SVG to distal RCA both occluded. 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 -loperamide to help slow down the diarrhea -C.difficile negative -stool cultures positive for Campylobacter jejuni -Patient will need to take azithromycin 500 mg daily (started on 02/16/19) until 02/18/19 because of 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 Patient may take loperamide every 12 hours as needed for diarrhea (5 day supply) (6) SSS (sick sinus syndrome): (7) Pacemaker: -Her pacemaker was interrogated via remote connection on 02/14/19 (8) DVT (deep venous thrombosis): History of deep vein thrombosis in the past -on chronic coumadin anticoagulation therapy (9) Pulmonary embolism: History of pulmonary embolism in the past -on chronic coumadin anticoagulation therapy -continue to hold coumadin in the hospital for now as INR is above 3 (10) Hypothyroidism: -Continue levothyroxine -continue to hold coumadin in the hospital for as INR is above 3 (11) GERD (gastroesophageal reflux disease): -Continue sucralfate, H2 sumi, PPI (12) DVT prophylaxis: -on chronic coumadin anticoagulation therapy, continue to hold coumadin in the hospital as INR is above 3 Discharge diagnosis Atrial fibrillation with RVR; Non-ST elevation (NSTEMI) myocardial infarction; Supratherapeutic INR; Hypokalemia, 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 Subjective Patient breathing on room air. continues to have stable heart rates. no chest pain. no palpitations. no abdomen pain. no vomiting. no diarrhea since yesterday evening. no dizziness. no lightheadedness. ambulatory. she would like to be discharge. discharge plans discussed at length with patient and her family member Physical Exam Constitutional: comfortable Eyes: PERRL, conjunctivae normal, anicteric sclerae EOM intact bilaterally ENMT: external ear and nose normal, oropharynx normal Neck: trachea midline, no thyromegaly Respiratory: normal respiratory effort, lungs clear to auscultation Cardiovascular: Rate/Rhythm: regular rhythm and + bradycardic Gastrointestinal (Abdomen): normal bowel sounds, soft, nontender, no hepatosplenomegaly Musculoskeletal: no cyanosis or clubbing, extremities motor strength 5/5 Head/Neck/Chest: normocephalic and head atraumatic Extremities: + lower extremity abnormal to inspection (left leg chronically more swollen compared to right leg as per patient) Neurologic: PERRL, EOMI, accommodation nl, no face palsy, no dysarthria CN's II-XI intact bilaterally Psychiatric: A+Ox3, euthymic affect Results & Data Vital Signs (Past 12 Hours) Vital Signs Temp Pulse Resp BP BP Pulse Ox 02/16/19 10:31 36.4 C L 72 18 136/85 122/77 92 02/16/19 07:14 36.4 C L 72 18 136/85 92 02/16/19 03:23 36.7 C 70 18 109/69 95 02/15/19 23:08 36.8 C 75 18 109/65 95
--- NOTE | 2019-02-16 10:52 | Discharge Summary ---
Date of Service February 16, 2019 Admission HPI Per Admitting Provider 78-year-old female who presents to the ED with chest pain and palpitations. Patient reports she has somewhat chronic palpitations of been going on for the past few months. She also has history of chronic chest pain in which she takes sublingual nitroglycerin for. This morning, patient reports she had chest pain and palpitations that were much worse than her usual symptoms. Patient reports a centralized chest pressure with radiation of the discomfort into both of her arms. She also had associated palpitations. She took a sublingual nitroglycerin without resolution of her symptoms. EMS was then called and patient was brought to the ED for further evaluation. Patient reports she has been having diarrhea for the past 5 days. She reports some associated abdominal cramping with it. She has had a poor appetite and nausea however no vomiting. She denies bright red bleeding per rectum or dark tarry stools. No fevers or chills. She denies lightheadedness, dizziness, diaphoresis, syncopal events. No urinary symptoms. In the ED, patient was found to be in A. fib with RVR with rates in the 150s. Patient was initially treated with metoprolol 5 mg x 2 however without improvement in rates. She was then given diltiazem 20 mg IV bolus and started on a drip and heart rate is currently in the 90s to low 100s. Labs show hypokalemia with K+ 2.8. Patient was also given IVF and I have ordered potassium replacement. 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 Discharge Exam Constitutional comfortable Eyes PERRL, conjunctivae normal, anicteric sclerae EOM intact bilaterally ENMT external ear and nose normal, oropharynx normal Neck trachea midline, no thyromegaly Respiratory normal respiratory effort, lungs clear to auscultation Cardiovascular Rate/Rhythm: regular rhythm and + bradycardic Gastrointestinal (Abdomen) normal bowel sounds, soft, nontender, no hepatosplenomegaly Musculoskeletal no cyanosis or clubbing, extremities motor strength 5/5 Head/Neck/Chest: normocephalic and head atraumatic Extremities: + lower extremity abnormal to inspection (left leg chronically more swollen compared to right leg as per patient) Neurologic PERRL, EOMI, accommodation nl, no face palsy, no dysarthria CN's II-XI intact bilaterally Psychiatric A+Ox3, euthymic affect Discharge Data Allergies Allergy/AdvReac Type Severity Reaction Status Date / Time prednisone Allergy Severe GI Verified 02/14/19 12:25 PAIN-LED TO PANCREATITIS Iodinated Contrast- Oral and Allergy Unknown HIVES-ANAPH Verified 02/14/19 12:25 IV Dye YLACTIC losartan Allergy Unknown NAUSEA AND Verified 02/14/19 12:25 VOMITING ranitidine Allergy Unknown NAUSEA AND Verified 02/14/19 12:25 VOMITING,ACHY rosiglitazone AdvReac Severe BLOOD CLOTS Verified 02/14/19 12:25 Consultations 02/14/19 13:20 ED Decision to Admit Stat 02/14/19 16:29 Consult Cardiology Routine Hospital Course (1) Atrial fibrillation with RVR: -admitted on 02/14/19 with atrial fibrillaton and rapid ventricular response and converted back to sinus rhythm after receiving potassium supplementation and IV diltiazem, Conversion occurred at 5:17 PM on 02/14/2019. -Her pacemaker was interrogated via remote connection on 02/14/19 -as per cardiology evaluation 02/15/19, transition her to short acting carvedilol 12.5 mg twice daily, stopped amlodipine and started short acting diltiazem for blood pressure treatment -as per cardiology re-evaluation on 02/16/19 as patient's heart rate continues to be stable, these are the medications recommended on discharge today; Aspirin 81 mg daily, Isosorbide mononitrate 60 mg twice daily, Coreg CR 40 mg daily in the morning, Amlodipine 2.5 mg daily in evening, Potassium chloride 20 mEq by mouth daily (5 day supply prescribed); as per cardiology service Patient may resume her home dose of coumadin if her diet is stable as of 02/17/19 at home (2) Elevated troponin: Non-ST elevation (NSTEMI) myocardial infarction -non-ST segment elevation microinfarction as described by cardiology note on 02/15/19 -patient's troponins peaked at 4.7 on this admission and is now downtrending, patient's INR supratherapeutic during this time -as per cardiology evaluation the elevated troponins are from a supply demand mismatch event in setting of atrial fibrillation with rapid ventricular response and fixed chronic coronary heart disease. unlikely to be an acute intracoronary plaque rupture as her EKG and symptoms have resolved with resolution of the tachycardia. Continue prior to hospital dose of aspirin. Carvedilol, diltiazem, isosorbide mononitrate, and her Ranexa. Patient is not on statin therapy due to her chronic preference. -An echocardiogram has been completed with findings of normal left ventricular wall motion without regional wall motion abnormalities, normal LVEF in the range of 60-65%. Supratherapeutic INR -continue to hold coumadin dose as INR was elevated on admission day of 02/14/19 as 3.5 and still high on 02/15/19 as 3.9 and still 3.9 on 02/16/19 -supratherpeutic INR likely contributed by poor appetite associated with patient's diarrhea and likely a lack of dietary vitamin K while on coumadin at home -as per cardiology service Patient may resume her home dose of coumadin if her diet is stable as of 02/17/19 at home -[facility] appointment line was called to try to set up appointment with coumadin clinic [facility] for patient to have INR checked on 02/18/19 and no later than 02/19/19 First hospital discharge follow up primary care appointment 02/21/2019 1:00 PM Provider Shonda Oseguera MD Department Internal Medicine [facility] Other appointments 02/25/2019 10:30 AM Provider Meghan Rasheed MD Department [facility]/05[facility] 3:00 PM Provider Rola Buchanan PA-C Department Cardiology, [facility] 03/07/2019 11:45 AM Provider Lab [facility] Department Laboratory, [facility] 03/07/2019 2:30 PM Provider Maryann Sinha PA-C Department Internal Medicine [facility] 03/10/2019 7:00 AM Provider [facility] Department Pharmacy, [facility] 03/25/2019 9:00 AM Provider Pacer Ronna [facility] Department Cardiology [facility] (3) CAD (coronary artery disease): -History of Coronary artery disease with stable class II exertional a ngina, status post remote CABG x3 (BROWN to LAD,SVG to diag, SVG to OM, SVG to R PDA and SVG to distal RCA) -History of anaphylaxis to contrast dye with last catheterization despite pretreatment with benadryl and IV solu-cortef, at time of most recent cardiac catheterization performed in [place], 09/13/10. At that time , severe diffuse [place] vessel disease reported, The BROWN to LAD was patent, SVG to diag was patent, SVG to OM diffuse disease, SVG to PAD and SVG to distal RCA both occluded. 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 -loperamide to help slow down the diarrhea -C.difficile negative -stool cultures positive for Campylobacter jejuni -Patient will need to take azithromycin 500 mg daily (started on 02/16/19) until 02/18/19 because of 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 Patient may take loperamide every 12 hours as needed for diarrhea (5 day supply) (6) SSS (sick sinus syndrome): (7) Pacemaker: -Her pacemaker was interrogated via remote connection on 02/14/19 (8) DVT (deep venous thrombosis): History of deep vein thrombosis in the past -on chronic coumadin anticoagulation therapy (9) Pulmonary embolism: History of pulmonary embolism in the past -on chronic coumadin anticoagulation therapy -continue to hold coumadin in the hospital for now as INR is above 3 (10) Hypothyroidism: -Continue levothyroxine -continue to hold coumadin in the hospital for as INR is above 3 (11) GERD (gastroesophageal reflux disease): -Continue sucralfate, H2 sumi, PPI (12) DVT prophylaxis: -on chronic coumadin anticoagulation therapy, continue to hold coumadin in the hospital as INR is above 3 Discharge diagnosis Atrial fibrillation with RVR; Non-ST elevation (NSTEMI) myocardial infarction; Supratherapeutic INR; Hypokalemia, 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 Total Time Total Time Spent Total Time Spent (In Minutes): 40 minutes Total Time Includes: Examination of the Patient, Discharge Planning, Medication Reconciliation and Communication With Other Providers Discharge Plan Discharge Items Patient Disposition: Home - Self-Care Reason For Visit: A FIB RVR Discharge Diagnosis: Atrial fibrillation with RVR; Non-ST elevation (NSTEMI) myocardial infarction; Supratherapeutic INR; Hypokalemia, 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 Condition: Good Discharge Goals: Improve disease control Activity: Resume your previous activity Non-emergency contact: Primary Care Provider and Screedman/Laborer Call non-emergency contact if: you have any medication questions Follow-up/Referrals: Payam Escalona DO [Primary Care Provider] - Diet: Heart Healthy Add Provider Instructions: Patient will need to take azithromycin 500 mg daily (started on 02/16/19) until 02/18/19 because of 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 Patient may take loperamide every 12 hours as needed for diarrhea (5 day supply) Cardiac medication for discharge: Aspirin 81 mg daily Isosorbide mononitrate 60 mg twice daily Coreg CR 40 mg daily in the morning Amlodipine 2.5 mg daily in evening Potassium chloride 20 mEq by mouth daily (5 day supply) INR is 3.9 by 02/16/19 and coumadin had already been held since patient came to hospital on 02/14/19. Patient may resume her home dose of coumadin if her diet is stable as of 02/17/19 at home [facility] appointment line was called to try to set up appointment with coumadin clinic [facility] for patient to have INR checked on 02/18/19 and no later than 02/19/19 First hospital discharge follow up primary care appointment 02/21/2019 1:00 PM Provider Shonda Oseguera MD Department Internal Medicine [facility] 02/25/2019 10:30 AM Provider Meghan Rasheed MD Department [facility] Surgery, [facility] 03/05/2019 3:00 PM Provider Rola Buchanan PA-C Department Cardiology, [facility] 03/07/2019 11:45 AM Provider Lab [facility] Department Laboratory, [facility] 03/07/2019 2:30 PM Provider Maryann Sinha PA-C Department Internal Medicine [facility] 03/10/2019 7:00 AM Provider [facility] Department Pharmacy, [facility] 03/25/2019 9:00 AM Provider [facility] Department Cardiology [facility] Prescriptions: New azithromycin 500 mg tablet 500 mg PO DAILY 2 Days Qty: 2 RF: 0 loperamide 2 mg Capsule 2 mg PO Q12H PRN (Reason: diarrhea) 5 Days Qty: 10 RF: 0 amlodipine 2.5 mg tablet 2.5 mg PO DAILY 30 Days Qty: 30 RF: 0 Continued aspirin 81 mg Tablet,Delayed Release (Dr/Ec) 1 tab PO QPM RF: 0 isosorbide mononitrate 60 mg Tablet Extended Release 24 Hr 60 mg PO BID RF: 0 levothyroxine 50 mcg Tablet 50 mcg PO QAM RF: 0 nitroglycerin 0.4 mg Tablet, Sublingual 1 tab Sublingual UD PRN (Reason: Chest Pain) RF: 0 furosemide [Lasix] 20 mg Tablet 20 mg PO DAILY PRN (Reason: Edema) RF: 0 warfarin [Coumadin] 5 mg tablet 2.5 mg PO DAILY RF: 0 carvedilol phosphate [Coreg CR] 40 mg capsule, ER multiphase 24 hr 40 mg PO QAM RF: 0 acetaminophen [Tylenol] 325 mg Tablet 325 mg PO Q6H PRN (Reason: Pain) RF: 0 sucralfate 1 gram tablet 1,000 mg PO BID RF: 0 ranitidine HCl 150 mg tablet 150 mg PO HS RF: 0 ranolazine 500 mg tablet extended release 12 hr 500 mg PO BID RF: 0 omeprazole 20 mg capsule,delayed release(DR/EC) 20 mg PO DAILY RF: 0 Discontinued amlodipine 5 mg Tablet 5 mg PO HS RF: 0 dicyclomine 10 mg Capsule 10 mg PO QID PRN (Reason: Gi Upset) RF: 0 Stand-Alone Forms: Call Back Authorization, [facility] Discharge Orders: Discharge Order (Routine); Ordered 02/16/19 Ordered By: Kevin Ruiz Admission Data Admit Date/Time: 02/14/19 14:11 Attending Provider: Kevin Ruiz Admit Provider: Mary Malik Primary Care Provider: Payam Escalona Other Providers: Mary Malik ; Tim Mercado Service: Telemetry Other Interventions: Discharge Summary Assessment (RN) Last Done: 02/16/19 10:31
[2019-02-17] MEDS ORDERED: AZITHROMYCIN 250 MG TAB PO SCH (09:00)
[2019-02-17] MEDS ORDERED: AMLODIPINE BESYLATE 5 MG TAB PO SCH (09:00)
[2019-02-17] MEDS ORDERED: POTASSIUM CHLORIDE 20 MEQ TABCR PO SCH (09:00)
== END 2019-02-16 11:48 | disposition home or self-care (01) | DRG 282 ==
LOC: ED 10:55 → 2S 14:11 → SUATTDRO 14:11 → 2S 15:01

== ENCOUNTER 2019-06-15 10:35 | Inpatient (IN) ==
[2019-06-15 11:15] LABS: Basophils # (auto) 0.01 K/uL (0-0.2); Basophils % (auto) 0.1 %; Eosinophils # (auto) 0.06 K/uL (0-0.5); Eosinophils % (auto) 0.8 %; Hemoglobin 16.1 g/dL (12.0-16.0); Immature Granulocytes # (auto) 0.05 K/uL (0.00-0.02); Immature Granulocytes % (auto) 0.6 %; Lymphocytes # (auto) 1.25 K/uL (1.2-3.4); Mean Corpuscular Hemoglobin 30.4 pg (25-34); Mean Corpuscular Hgb Conc 33.5 g/dL (32-36); Mean Corpuscular Volume 90.6 fL (80-100); Mean Platelet Volume 12.1 fL (7.4-10.4); Monocytes # (auto) 0.83 K/uL (0.11-0.59); Monocytes % (auto) 10.6 %; Neutrophils # (auto) 5.63 K/uL (1.4-6.5); Neutrophils % (auto) 71.9 %; Platelet Count 232 K/uL (130-400); RDW Coefficient of Variation 15.1 % (11.5-14.5); White Blood Count 7.83 K/uL (4.8-10.8)
[2019-06-15 11:22] LABS: Alanine Aminotransferase 17 U/L (12-78); Albumin Level 3.9 gm/dl (3.4-5.0); Aspartate Aminotransferase 9 U/L (15-37); BUN Creatinine Ratio 26.6 (10-20); Blood Urea Nitrogen 29 mg/dl (7-18); Calcium 9.8 mg/dl (8.5-10.1); Carbon Dioxide 30 mmol/L (21-32); Chloride 106 mmol/L (98-107); Creatinine Clr Calc Pharmacy 48.1 ml/min; Est GFR (African American) 55.9; Est GFR (Non-African American) 48.2; Glucose 103 mg/dl (70-99); Lipase 107 U/L (73-393); Potassium 3.9 mmol/L (3.5-5.1); Sodium 140 mmol/L (136-145)
--- NOTE | 2019-06-15 11:24 | XRay Report ---
XR chest 1V portable CLINICAL HISTORY: 78 years-old Female presenting with Chest Pain. TECHNIQUE: Portable upright AP view of the chest was obtained. COMPARISON: 05/01/2019. FINDINGS: Median sternotomy wires and mediastinal surgical clips noted. Left subclavian pacer with leads to the right atrium and right ventricular apex. Atherosclerosis and tortuosity of the thoracic aorta. Cardi ac silhouette borderline enlarged. Mild pulmonary vascular prominence and interstitial prominence. No focal opacity. No large effusion or pneumothorax. Degenerative changes of the thoracic spine. Upper abdomen normal. IMPRESSION: 1. Possible mild volume overload if any is present. No advanced congestive change or pulmonary edema . No other evidence of acute cardiopulmonary disease. Electronically signed by: Calvin Arriaga M.D. 06/15/2019 11:22 AM
[2019-06-15 11:28] LABS: Albumin Globulin Ratio 1.1 (0.9-2); Alkaline Phosphatase 100 U/L (45-117); Bilirubin,Total 0.5 mg/dl (0.2-1); Globulin 3.7 gm/dl (2.5-4.0); Total Protein 7.6 gm/dl (6.4-8.2); Troponin I < 0.015 ng/ml (0-0.045)
[2019-06-15] MEDS ORDERED: NITROGLYCERIN 2% OINTMENT 30GM TUBE EXT STA (11:45)
[2019-06-15] MEDS ORDERED: ACETAMINOPHEN 325 MG TAB PO PRN (12:28)
[2019-06-15] MEDS ORDERED: PROMETHAZINE HCL 6.25 MG in SODIUM CHLORIDE 0.9% 50 ML IV PRN (12:28)
[2019-06-15] MEDS ORDERED: MoRPHine SULFATE 2 MG/ML CARP IV PRN (12:28)
--- NOTE | 2019-06-15 12:35 | History & Physical Report ---
Date of Service June 15, 2019 Assessment & Plan (1) Substernal chest pain: -78 year old female with cardiac history who had last hospital admission in January 2019 for atrial fibrillation and rapid ventricular response/non-ST segment elevation microinfarction and reported that since that time she has been generally chest pain free. However, she began to have midsternal chest pains that are recurrent since Sunday06/13/19 that is not sufficiently received by Ranexa (ranolazine) or Nitro. Frequency and severity of the chest pains were concerning to the patient. She noted that pains appeared to be progressed even with minor exertion or body movements. patient reported taking nitro at home and nitro also given by EMS. nitro patch placed on chest by ED physician. patient currently chest pain free in the ED for now upon initial exam by hospitalist. -Allergy history pertinent for muscle aches to statin so patient gets Repatha (evolocumab) injections as outpatient for lipid control. also that in the past when she had cardiac cath in [place], the patient was told that she had anap hylaxis despite pre-medication to the dye contrast. -follow up echocardiogram performed in the ED -cardiology consult requested -admission troponin negative, repeat troponin 3 hours afterwards is also negative, continue to trend troponins -admission INR is 3.6, would not start other systemic anticoagulation at this time, hold coumadin for now as INR is supratherapeutic -admission to telemetry -nitro and morphine prn if more chest pains -continue Ranexa (ranolazine) 500 mg BID -continue isosorbide mononitrate 60 mg BID -home dose Coreg CR is nonformulary and will place on carvedilol 12.5 mg BID for now as this was previously recommended by cardiology in January 2019 admission Dyslipidemia -lipid panel performed on 06/15/19 was done as non-fasting test -Allergy history pertinent for muscle aches to statin so patient gets Repatha (evolocumab) injections as outpatient Presence of Pacemaker Paroxysmal atrial fibrillation -last hospital admission in January 2019 for atrial fibrillation and rapid ventricular response -telemetry monitoring of heart rates Supratherapeutic INR, on admission DVT prophylaxis -admission INR is 3.6, would not start other systemic anticoagulation at this time, hold coumadin for now as INR is supratherapeutic -goal INR when on coumadin is 2 to 3 -History of deep vein thrombosis/pulmonary embolism in the past; check ultrasound of lower extremities to rule out any current deep vein thrombosis (2) Hypothyroidism: -TSH of 2.98 -will hold home dose levothyroxine for now during chest pain work up (3) Hyperparathyroidism: -patient reports that her outpatient doctors considering to have her get parathyroidectomy in future -PTH is elevated but admission calcium of 9.8 within normal parameters, ionized calcium 1.28 is within normal parametrs -25-OH vitamin D is 22.4 Full Code family contact: son [phone] History of Present Illness 78 year old female with cardiac history who had last hospital admission in January 2019 for atrial fibrillation and rapid ventricular response/non-ST segment elevation microinfarction and reported that since that time she has been generally chest pain free. However, she began to have midsternal chest pains that are recurrent since Sunday06/13/19 that is not sufficiently received by Ranexa or Nitro. Frequency and severity of the chest pains were concerning to the patient. She noted that pains appeared to be progressed even with minor exertion or body movements. patient reported taking nitro at home and nitro also given by EMS. nitro patch placed on chest by ED physician. patient currently chest pain free in the ED for now upon initial exam by hospitalist. Allergy history pertinent for muscle aches to statin so patient gets Repatha (evolocumab) injections as outpatient for lipid control. also that in the past when she had cardiac cath in [place], the patient was told that he patient was told that she had anaphylaxis despite pre-medication to the dye contrast. Denies family history of health problems Primary Care Provider: Shonda Oseguera MD Allergies Allergy/AdvReac Type Severity Reaction Status Date / Time prednisone Allergy Severe GI Verified 06/15/19 11:33 PAIN-LED TO PANCREATITIS Iodinated Contrast Media Allergy Unknown HIVES-ANAPH Verified 06/15/19 11:33 YLACTIC losartan Allergy Unknown NAUSEA AND Verified 06/15/19 11:33 VOMITING ranitidine Allergy Unknown NAUSEA AND Verified 06/15/19 11:33 VOMITING,ACHY ether Allergy Unknown Verified 06/15/19 11:33 rosiglitazone AdvReac Severe BLOOD CLOTS Verified 06/15/19 11:33 atorvastatin [From Lipitor] AdvReac Muscle Pain Verified 06/15/19 11:33 ezetimibe [From Zetia] AdvReac Muscle Pain Verified 06/15/19 11:33 lisinopril AdvReac Cough Verified 06/15/19 11:33 rosuvastatin [From Crestor] AdvReac Muscle Pain Verified 06/15/19 11:33 Home Medications Home Medications Medication Instructions Recorded Confirmed Type aspirin 1 tab PO QPM 03/19/18 06/15/19 History isosorbide mononitrate 60 mg PO BID 03/19/18 06/15/19 History levothyroxine 50 mcg PO QAM 03/19/18 06/15/19 History nitroglycerin 1 tab SUBLINGUAL UD PRN 03/19/18 06/15/19 History carvedilol phosphate [Coreg CR] 40 mg PO QAM 11/02/18 06/15/19 History warfarin [Coumadin] 2.5 mg PO DAILY 11/02/18 06/15/19 History omeprazole 20 mg PO DAILY 02/14/19 06/15/19 History ranolazine 500 mg PO BID 02/14/19 06/15/19 History sucralfate 1,000 mg PO DAILY 02/14/19 06/15/19 History acetaminophen [Tylenol Extra 1,000 mg PO Q6H PRN 05/01/19 06/15/19 History Strength] amlodipine [Norvasc] 2.5 mg PO DAILY 05/01/19 06/15/19 History carvedilol phosphate 20 mg PO HS 05/01/19 06/15/19 History evolocumab [Repatha SureClick] 140 mg SUBCUT UD 05/01/19 06/15/19 History potassium chloride [Klor-Con M20] 20 meq PO MOWEFR 05/01/19 06/15/19 History Past Med/Surg History Medical History 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) Atrial fibrillation (Chronic) CAD (coronary artery disease) (Chronic) "s/p CABG x 3, PCI x 3" DVT (deep venous thrombosis) (Chronic) Dyslipidemia (Chronic) GERD (gastroesophageal reflux disease) (Chronic) HTN (hypertension) (Chronic) Hypothyroidism (Chronic) IPMN (intraductal papillary mucinous neoplasm) (Chronic) Pacemaker (Chronic) Pulmonary embolism (Chronic) SSS (sick sinus syndrome) (Chronic) Surgical History H/O arthroscopy of knee (Chronic) H/O arthroscopy of shoulder (Chronic) History of hysterectomy (Chronic) Hx of adenoidectomy (Chronic) Hx of appendectomy (Chronic) Hx of cataract surgery (Chronic) Hx of cholecystectomy (Chronic) Hx of hemorrhoidectomy (Chronic) Hx of tonsillectomy (Chronic) S/P BSO (bilateral salpingo-oophorectomy) (Chronic) S/P CABG x 3 (Chronic) Family History Mother Stroke Social History Preferred Language: Malay Communication Ability: Effective Transmitter Tester Required: No Beliefs That Will Affect Care: None Current Living Situation: Spouse and Family Current Living Situation Comment: SON LIVES WITH PT Other Information That Helps Us Care for You: No Feels Safe at Home: Yes Safety Concerns: Feels Safe At This Time Smoking Status: Never smoker Do You Dip or Chew Tobacco: No ; Second Hand Exposure: No ; Tobacco Cessation Education Requested by Patient: No Hx Alcohol Use: No Hx Substance Use: No Review of Systems Review of Systems: All systems reviewed & are unremarkable except as noted in HPI & below Physical Exam Constitutional: + obese and comfortable Eyes: PERRL, conjunctivae normal, anicteric sclerae EOM intact bilaterally ENMT: external ear and nose normal, oropharynx normal Neck: normal visual inspection Respiratory: normal respiratory effort, lungs clear to auscultation Cardiovascular: Rate/Rhythm: regular rate and regular rhythm Gastrointestinal (Abdomen): normal bowel sounds, soft, nontender, no hepatosplenomegaly Musculoskeletal: Head/Neck/Chest: normocephalic and head atraumatic Neurologic: PERRL, EOMI, accommodation nl, no face palsy, no dysarthria CN's II-XI intact bilaterally Psychiatric: A+Ox3, euthymic affect Results & Data Vital Signs (Past 12 Hours) Vital Signs Temp Pulse Pulse Resp BP BP Pulse Ox 06/15/19 12:00 63 16 156/93 H 95 06/15/19 11:30 61 13 135/90 94 06/15/19 11:01 62 14 130/84 95 06/15/19 10:42 36.9 C 69 12 152/104 H 93
[2019-06-15] MEDS ORDERED: INFLUENZA Vaccine HIGH DOSE 65+yrs 0.5 mL Syr IM ONE (12:45)
[2019-06-15] MEDS ORDERED: PERFLUTREN LIPID MICROSPHERE (DEFINITY) IV ONE (12:53)
[2019-06-15 13:42] LABS: Partial Thromboplastin Ratio 1.3; Partial Thromboplastin Time 35.3 Seconds (21.0-31.0)
[2019-06-15 13:46] LABS: Chol HDL Ratio 6; Cholesterol 332 mg/dl (0-200); HDL Cholesterol 56 mg/dl; LDL Cholesterol Calculated 238 mg/dl; Triglycerides 192 mg/dl (0-150); Troponin I < 0.015 ng/ml (0-0.045); VLDL Cholesterol 38 mg/dl
[2019-06-15 14:01] LABS: INR 3.6 (0.9-1.1)
--- NOTE | 2019-06-15 14:58 | Ultrasound Report ---
US venous doppler LE CLINICAL HISTORY: 78 years-old Female presenting with rule out DVT. TECHNIQUE: Real-time grayscale and color and spectral Doppler ultrasound imaging of the veins of the bilateral lower extremities was performed. Compression and augmentation were also utilized. COMPARISON: 03/17/2011. FINDINGS: RIGHT: Common femoral vein: Patent. Greater saphenous vein (superficial): Patent. Deep femoral vein: Patent. Femoral vein: Patent. Popliteal vein: Patent. Calf veins: Patent. LEFT: Common femoral vein: Patent. Greater saphenous vein (superficial): Patent. Deep femoral vein: Patent. Femoral vein: Patent. Popliteal vein: Patent. Calf veins: Patent. Other: None. IMPRESSION: No evidence of deep venous thrombosis. Electronically signed by: Calvin Arriaga M.D. 06/15/2019 2:56 PM
--- NOTE | 2019-06-15 15:31 | Cardiology Consultation ---
Date of Consultation June 15, 2019 Assessment & Plan (1) Substernal chest pain: Patient with complex coronary artery disease as outlined with chronic class III angina pectoris with recent increase in anginal symptoms. Cardiac enzymes x2 are negative for injury or infarct EKG reveals no evolution. Echocardiogram no acute changes and wall motion. Patient has previously documented very reluctant to consider repeat heart catheterization given past anaphylactic reaction to dye. Ultimate goals with attempt to stabilize medically however will hold warfarin in the interim (being used for prior history of DVT pulmonary emboli) We will increase Ranexa to thousand milligrams twice per day. Given it elevated blood pressures will increase amlodipine to 2.5 mg twice per day with room for further upward titration Follow EKGs (2) Hyperparathyroidism: (3) History of coronary artery disease: (4) SSS (sick sinus syndrome): (5) Pacemaker: (6) Paroxysmal atrial fibrillation: Current rhythm atrial paced. Last pacemaker interrogation reveals patient predominantly in atrial paced rhythm. (7) Pulmonary embolism: History of Present Illness Reason for Consultation: Chest pain consistent with prior angina Requesting Physician: Dr. Ruiz Attending Physician: Dr. Ruiz History of Present Illness Patient is a 78-year-old female with complex cardiac issues 1. Coronary artery disease with stable class II exertional angina, status post remote CABG x3 (BROWN to LAD,SVG to diag, SVG to OM, SVG to R PDA and SVG to distal RCA) 2. History of anaphylaxis to contrast dye with last catheterization despite pretreatment with benadryl and IV solu-cortef, at time of most recent cardiac catheterization performed in [place], 09/13/10. 3. Severe diffuse [place] vessel disease reported, The BROWN to LAD was patent, SVG to diag was patent, SVG to OM diffuse disease, SVG to PAD and SVG to distal RCA both occluded. Report describes rash that developed after contrast administration, therefore an additional dose of 100 mg of IV Solu-Cortef was administered as well as an additional dose of 25 mg of IV Benadryl. Despite these interventions the patient developed profound hypotension for which she received IV epinephrine for blood pressure support. 4. Sick sinus syndrome status post permanent pacemaker placement. 5. Paroxysmal atrial fibrillation with patient predominantly in sinus rhythm 5. History of DVT and pulmonary embolus. 6. Hypertension. 7. Hyperlipidemia with statin intolerance, brief trial with Repatha 8. Hyperparathyroidism with past renal lithiasis Patient presents now with increasing chest pressure pain. She had been previously evaluated for symptoms of angina approximately 6 months ago with symptoms responding to oral Ranexa with excellent control until approximately 3 days ago when patient began experiencing symptoms of chest pressure radiating to both arms consistent with her prior anginal symptoms. She had tried increased dose of Ranexa on one occasion as well sublingual nitroglycerin with pain not relieved with these interventions. She noted minimal breathlessness with symptoms. No dizziness or lightheadedness. Noticed tachypalpitations syncope or near syncope. No fevers chills unexplained infections. No diaphoresis. Has chronic issues with indigestion and heartburn notes multiple medication intolerances. No back pain or abdominal pain no bleeding difficulties no melena medication dysuria hematuria. She is chronically anticoagulated with warfarin. Initial troponins are negative x2 and echocardiogram on preliminary review reveals no new wall motion abnormalities. Blood pressure is elevated on presentation Currently patient is asymptomatic. Allergies Allergy/AdvReac Type Severity Reaction Status Date / Time prednisone Allergy Severe GI Verified 06/15/19 11:33 PAIN-LED TO PANCREATITIS Iodinated Contrast Media Allergy Unknown HIVES-ANAPH Verified 06/15/19 11:33 YLACTIC losartan Allergy Unknown NAUSEA AND Verified 06/15/19 11:33 VOMITING ranitidine Allergy Unknown NAUSEA AND Verified 06/15/19 11:33 VOMITING,ACHY ether Allergy Unknown Verified 06/15/19 11:33 rosiglitazone AdvReac Severe BLOOD CLOTS Verified 06/15/19 11:33 atorvastatin [From Lipitor] AdvReac Muscle Pain Verified 06/15/19 11:33 ezetimibe [From Zetia] AdvReac Muscle Pain Verified 06/15/19 11:33 lisinopril AdvReac Cough Verified 06/15/19 11:33 rosuvastatin [From Crestor] AdvReac Muscle Pain Verified 06/15/19 11:33 Home Medications Home Medications Medication Instructions Recorded Confirmed Type aspirin 1 tab PO QPM 03/19/18 06/15/19 History isosorbide mononitrate 60 mg PO BID 03/19/18 06/15/19 History levothyroxine 50 mcg PO QAM 03/19/18 06/15/19 History nitroglycerin 1 tab SUBLINGUAL UD PRN 03/19/18 06/15/19 History carvedilol phosphate [Coreg CR] 40 mg PO QAM 11/02/18 06/15/19 History warfarin [Coumadin] 2.5 mg PO DAILY 11/02/18 06/15/19 History omeprazole 20 mg PO DAILY 02/14/19 06/15/19 History ranolazine 500 mg PO BID 02/14/19 06/15/19 History sucralfate 1,000 mg PO DAILY 02/14/19 06/15/19 History acetaminophen [Tylenol Extra 1,000 mg PO Q6H PRN 05/01/19 06/15/19 History Strength] amlodipine [Norvasc] 2.5 mg PO DAILY 05/01/19 06/15/19 History carvedilol phosphate 20 mg PO HS 05/01/19 06/15/19 History evolocumab [Repatha SureClick] 140 mg SUBCUT UD 05/01/19 06/15/19 History potassium chloride [Klor-Con M20] 20 meq PO MOWEFR 05/01/19 06/15/19 History Patient History Medical History 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) Atrial fibrillation (Chronic) CAD (coronary artery disease) (Chronic) "s/p CABG x 3, PCI x 3" DVT (deep venous thrombosis) (Chronic) Dyslipidemia (Chronic) GERD (gastroesophageal reflux disease) (Chronic) HTN (hypertension) (Chronic) Hypothyroidism (Chronic) IPMN (intraductal papillary mucinous neoplasm) (Chronic) Pacemaker (Chronic) Pulmonary embolism (Chronic) SSS (sick sinus syndrome) (Chronic) Surgical History H/O arthroscopy of knee (Chronic) H/O arthroscopy of shoulder (Chronic) History of hysterectomy (Chronic) Hx of adenoidectomy (Chronic) Hx of appendectomy (Chronic) Hx of cataract surgery (Chronic) Hx of cholecystectomy (Chronic) Hx of hemorrhoidectomy (Chronic) Hx of tonsillectomy (Chronic) S/P BSO (bilateral salpingo-oophorectomy) (Chronic) S/P CABG x 3 (Chronic) Family History Mother Stroke Social History Preferred Language: Chinese Communication Ability: Effective [employer] Required: No Beliefs That Will Affect Care: None Current Living Situation: Spouse and Family Current Living Situation Comment: SON LIVES WITH PT Other Information That Helps Us Care for You: No Feels Safe at Home: Yes Safety Concerns: Feels Safe At This Time Smoking Status: Never smoker Do You Dip or Chew Tobacco: No ; Second Hand Exposure: No ; Tobacco Cessation Education Requested by Patient: No Hx Alcohol Use: No Hx Substance Use: No Review of Systems Review of Systems: All systems reviewed & are unremarkable except as noted in HPI & below Physical Exam Constitutional: WD/WN, vitals as above + obese Eyes: PERRL, conjunctivae normal, anicteric sclerae ENMT: external ear and nose normal, oropharynx normal Neck: trachea midline, no thyromegaly Respiratory: normal respiratory effort, lungs clear to auscultation Cardiovascular: Rate/Rhythm: regular rate and regular rhythm Heart Sounds: normal S1 and normal S2; no gallop and no murmur Palpation: normal PMI Vessels: normal carotid upstroke and radial pulses present; no JVD and no c arotid bruit Extremities: no edema Gastrointestinal (Abdomen): normal bowel sounds, soft, nontender, no hepatosplenomegaly Musculoskeletal: no cyanosis or clubbing, extremities motor strength 5/5 Skin: no rashes, warm and dry Neurologic: PERRL, EOMI, accommodation nl, no face palsy, no dysarthria Psychiatric: A+Ox3, euthymic affect Results & Data Vital Signs (Past 12 Hours) Vital Signs Temp Pulse Pulse Resp BP BP Pulse Ox 06/15/19 15:22 74 19 134/97 95 06/15/19 14:00 60 15 151/89 H 92 06/15/19 13:30 61 15 139/91 93 06/15/19 13:00 65 19 163/95 H 06/15/19 12:30 84 23 179/110 H 06/15/19 12:00 63 16 156/93 H 95 06/15/19 11:30 61 13 135/90 94 06/15/19 11:01 62 14 130/84 95 06/15/19 10:42 36.9 C 69 12 152/104 H 93 Laboratory Results Laboratory Results - last 24 hr 06/15/19 06/15/19 06/15/19 10:15 10:15 10:15 WBC 7.83 RBC 5.30 Hgb 16.1 H Hct 48.0 H MCV 90.6 MCH 30.4 MCHC 33.5 RDW Std Deviation 50.0 H RDW Coeff of [place] 15.1 H Plt Count 232 MPV 12.1 H Immature Gran % (Auto) 0.6 Neut % (Auto) 71.9 Lymph % (Auto) 16.0 Edgar % (Auto) 10.6 Eos % (Auto) 0.8 Baso % (Auto) 0.1 Immature Gran # (Auto) 0.05 H Neut # (Auto) 5.63 Lymph # (Auto) 1.25 Edgar # (Auto) 0.83 H Eos # (Auto) 0.06 Baso # (Auto) 0.01 PT Cancelled INR Cancelled APTT Cancelled PTT Ratio Cancelled Sodium 140 Potassium 3.9 Chloride 106 Carbon Dioxide 30 Anion Gap 4.0 BUN 29 H Creatinine 1.09 Est Cr Clr Drug Dosing 48.1 Est GFR ( Amer) 55.9 Est GFR (Non-Af Amer) 48.2 BUN/Creatinine Ratio 26.6 H Glucose 103 H Calcium 9.8 Ionized Calcium Total Bilirubin 0.5 AST 9 L ALT 17 Alkaline Phosphatase 100 Troponin I < 0.015 Total Protein 7.6 Albumin 3.9 Globulin 3.7 Albumin/Globulin Ratio 1.1 Triglycerides Cholesterol LDL Cholesterol, Calc VLDL Cholesterol, Calc HDL Cholesterol Cholesterol/HDL Ratio Lipase 107 25-OH Vitamin D Total TSH PTH Intact 06/15/19 06/15/19 06/15/19 10:15 13:06 13:06 WBC RBC Hgb Hct MCV MCH MCHC RDW Std Deviation RDW Coeff of [place] Plt Count MPV Immature Gran % (Auto) Neut % (Auto) Lymph % (Auto) Edgar % (Auto) Eos % (Auto) Baso % (Auto) Immature Gran # (Auto) Neut # (Auto) Lymph # (Auto) Edgar # (Auto) Eos # (Auto) Baso # (Auto) PT INR APTT PTT Ratio Sodium Potassium Chloride Carbon Dioxide Anion Gap BUN Creatinine Est Cr Clr Drug Dosing Est GFR ( Amer) Est GFR (Non-Af Amer) BUN/Creatinine Ratio Glucose Calcium Ionized Calcium Total Bilirubin AST ALT Alkaline Phosphatase Troponin I < 0.015 Total Protein Albumin Globulin Albumin/Globulin Ratio Triglycerides 192 H Cholesterol 332 H LDL Cholesterol, Calc 238 VLDL Cholesterol, Calc 38 HDL Cholesterol 56 Cholesterol/HDL Ratio 6 Lipase 25-OH Vitamin D Total 22.4 L TSH 2.980 PTH Intact 249.0 H 06/15/19 06/15/19 13:06 13:06 WBC RBC Hgb Hct MCV MCH MCHC RDW Std Deviation RDW Coeff of [place] Plt Count MPV Immature Gran % (Auto) Neut % (Auto) Lymph % (Auto) Edgar % (Auto) Eos % (Auto) Baso % (Auto) Immature Gran # (Auto) Neut # (Auto) Lymph # (Auto) Edgar # (Auto) Eos # (Auto) Baso # (Auto) PT 34.0 H INR 3.6 H APTT 35.3 H PTT Ratio 1.3 Sodium Potassium Chloride Carbon Dioxide Anion Gap BUN Creatinine Est Cr Clr Drug Dosing Est GFR ( Amer) Est GFR (Non-Af Amer) BUN/Creatinine Ratio Glucose Calcium Ionized Calcium 1.28 Total Bilirubin AST ALT Alkaline Phosphatase Troponin I Total Protein Albumin Globulin Albumin/Globulin Ratio Triglycerides Cholesterol LDL Cholesterol, Calc VLDL Cholesterol, Calc HDL Cholesterol Cholesterol/HDL Ratio Lipase 25-OH Vitamin D Total TSH PTH Intact
--- NOTE | 2019-06-15 18:40 | Emergency Department Note ---
Entered by Tory Rosas acting as a scribe for ED Provider Note CHIEF COMPLAINT: Chest pain HISTORY OF PRESENT ILLNESS: The patient is a 78 year old female who presents to the Emergency Room with complaints of intermittent chest pain that has been present since Sunday, 2 days ago. The patient states that Nitro usually resolves her chest pain, but it did not work when she took it this morning. EMS gave her additional Nitro in the ambulance, which somewhat helped improve her pain. At its worst, she rates her pain at a 10. Currently, she feels no pain lying down in the bed. She also complains of varying blood pressure, with it being too high at times and too low at others. She complains of diaphoresis and nausea as well. The patient noticed that she was burping frequently when she was experiencing the chest pain. She confirms that she has taken her morning medications. Pt denies LOC, headache, fevers, chills, diaphoresis, visual changes, neck pain, breathing difficulties, nausea, vomiting, abdominal pain, back pain, melena, hematochezia, urinary symptoms, numbness, weakness, lymphadenopathy, rash, or other complaints. REVIEW OF SYSTEMS: See HPI for pertinent positives and negatives. A total of ten systems were reviewed and were otherwise negative. PMHx/PSHx: CABG Cardiac stent placement Pacemaker A Fib CAD Hypertension GERD DVT SOCIAL HISTORY: Patient lives at home. Single. PHYSICAL EXAM: GENERAL: Awake, alert, well-appearing, in no distress HENT: Normocephalic, atraumatic. Oropharynx unremarkable. EYES: PERRL. Normal conjunctiva. Sclera non-icteric. NECK: Inspection normal. Non-tender. Supple. No nuchal rigidity. FROM. No masses. RESPIRATORY: Clear to auscultation. No wheezes. No rales. Normal respiratory effort. CARDIAC: Normal rate. Normal rhythm. No murmurs. No rubs. Extremities warm and well perfused. Pulses equal. No JVD. GI: Soft, non-distended. No tenderness to palpation. No rebound or guarding. No masses. RECTAL: Deferred. MUSCULOSKELETAL: Atraumatic. Chest examination reveals no tenderness. The back is symmetrical on inspection without obvious abnormality. There is no CVA tenderness to palpation. No joint edema. LOWER EXTREMITIES: Calves are equal size bilaterally and non-tender. No edema. No discoloration. NEURO: Normal sensorium. No sensory or motor deficits noted. SKIN: No rash or jaundice noted. EMERGENCY DEPARTMENT COURSE: 1143: Past medical records reviewed. The patient was evaluated in room C03, and a complete history and physical examination were performed. 1205: I spoke to Dr. Ruiz, [facility] hospitalist, who agreed to further evaluate the patient. The patient verbally expressed understanding and agreement of the treatment plan. The patient will be evaluated for further treatment. MEDICAL DECISION MAKING: Prior records/ancillary studies reviewed. Triage Nursing notes reviewed and agree them. The patient's history was concerning for chest pain. Differential diagnosis: Etiologies such as cardiac ischemia, aortic dissection, pulmonary embolism, pneumonia, pneumothorax, musculoskeletal, infections, pericarditis, myocarditis, esophageal rupture, gastrointestinal, as well as others were entertained. Physical examination: As above. ER treatment provided: Nitropaste On reassessment the patient felt better. Diagnostic interpretation by me: The electrocardiogram was negative for pathologic change. The labs revealed an unremarkable CBC and chemistry panel. Troponin negative. Imaging studies: Chest x-ray negative for acute process. The patient has an extensive cardiac history and had chest pain relieved with nitroglycerin. She will need further management in the hospital. She has no shortness of breath or pleuritic component. Consultation: A consultation was placed with the hospitalist. The case was discussed and diag nostics were reviewed. The patient was evaluated in the ER for further treatment. IMPRESSION: Substernal chest pain History of Coronary artery disease PLAN: Admit The scribe's documentation has been prepared under my direction and personally reviewed by me in its entirety. I confirm that the note above accurately reflects all work, treatment, procedures, and medical decision making performed by me. 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) Atrial fibrillation (Chronic) CAD (coronary artery disease) (Chronic) "s/p CABG x 3, PCI x 3" DVT (deep venous thrombosis) (Chronic) Dyslipidemia (Chronic) GERD (gastroesophageal reflux disease) (Chronic) HTN (hypertension) (Chronic) Hypothyroidism (Chronic) IPMN (intraductal papillary mucinous neoplasm) (Chronic) Pacemaker (Chronic) Pulmonary embolism (Chronic) SSS (sick sinus syndrome) (Chronic) Surgical History H/O arthroscopy of knee (Chronic) H/O arthroscopy of shoulder (Chronic) History of hysterectomy (Chronic) Hx of adenoidectomy (Chronic) Hx of appendectomy (Chronic) Hx of cataract surgery (Chronic) Hx of cholecystectomy (Chronic) Hx of hemorrhoidectomy (Chronic) Hx of tonsillectomy (Chronic) S/P BSO (bilateral salpingo-oophorectomy) (Chronic) S/P CABG x 3 (Chronic) Family History Mother Stroke Social History Preferred Language: Greenlandic Communication Ability: Effective Cell Attendant Helper Required: No Beliefs That Will Affect Care: None Current Living Situation: Spouse and Family Current Living Situation Comment: SON LIVES WITH PT Other Information That Helps Us Care for You: No Feels Safe at Home: Yes Safety Concerns: Feels Safe At This Time Smoking Status: Never smoker Do You Dip or Chew Tobacco: No ; Second Hand Exposure: No ; Tobacco Cessation Education Requested by Patient: No Hx Alcohol Use: No Hx Substance Use: No Results & Data Vital Signs Vital Signs - 24 hr 06/15/19 10:42 06/15/19 11:01 06/15/19 11:30 Temperature 36.9 C Temperature Source Oral Pulse Rate 69 61 Pulse Rate [Apical] 62 Pulse Rate from SpO2 Sensor 61 Respiratory Rate 12 14 13 Respiratory Effort / Characteristics Non-Labored Spontaneous Blood Pressure 152/104 H 135/90 Blood Pressure [Right Arm] 130/84 Blood Pressure Mean 120 103 Blood Pressure Mean [Right Arm] 99 Blood Pressure Position Lying Pulse Oximetry 93 95 94 Oxygen Delivery Method Room Air Room Air Room Air Sepsis Recent Fever Within 48 Hours No Sepsis New/Unexplained Change in Mental Status No Sepsis Action Taken by Nursing No Action Required 06/15/19 12:00 06/15/19 12:30 06/15/19 13:00 Temperature Temperature Source Pulse Rate 63 84 65 Pulse Rate [Apical] Pulse Rate from SpO2 Sensor 63 Respiratory Rate 16 23 19 Respiratory Effort / Characteristics Blood Pressure 156/93 H 179/110 H 163/95 H Blood Pressure [Right Arm] Blood Pressure Mean 107 125 110 Blood Pressure Mean [Right Arm] Blood Pressure Position Pulse Oximetry 95 Oxygen Delivery Method Room Air Sepsis Recent Fever Within 48 Hours Sepsis New/Unexplained Change in Mental Status Sepsis Action Taken by Nursing 06/15/19 13:30 06/15/19 14:00 Temperature Temperature Source Pulse Rate 61 60 Pulse Rate [Apical] Pulse Rate from SpO2 Sensor 61 60 Respiratory Rate 15 15 Respiratory Effort / Characteristics Blood Pressure 139/91 151/89 H Blood Pressure [Right Arm] Blood Pressure Mean 107 105 Blood Pressure Mean [Right Arm] Blood Pressure Position Pulse Oximetry 93 92 Oxygen Delivery Method Room Air Room Air Sepsis Recent Fever Within 48 Hours Sepsis New/Unexplained Change in Mental Status Sepsis Action Taken by [facility] Medications Current Medication List: was personally reviewed by me Laboratory Data Attestation: I reviewed the patient's lab results. Result diagrams: 06/15/19 10:15 06/15/19 10:15 Lab Results 06/15/19 06/15/19 06/15/19 Range/Units 10:15 10:15 10:15 WBC 7.83 (4.8-10.8) K/uL RBC 5.30 (4.2-5.4) M/uL Hgb 16.1 H (12.0-16.0) g/dL Hct 48.0 H (37-47) % MCV 90.6 (80-100) fL MCH 30.4 (25-34) pg MCHC 33.5 (32-36) g/dL RDW Std Deviation 50.0 H (36.4-46.3) fL RDW Coeff of Chelo 15.1 H (11.5-14.5) % Plt Count 232 (130-400) K/uL MPV 12.1 H (7.4-10.4) fL Immature Gran % (Auto) 0.6 % Neut % (Auto) 71.9 % Lymph % (Auto) 16.0 % [place] % (Auto) 10.6 % Eos % (Auto) 0.8 % Baso % (Auto) 0.1 % Immature Gran # (Auto) 0.05 H (0.00-0.02) K/uL Neut # (Auto) 5.63 (1.4-6.5) K/uL Lymph # (Auto) 1.25 (1.2-3.4) K/uL [place] # (Auto) 0.83 H (0.11-0.59) K/uL Eos # (Auto) 0.06 (0-0.5) K/uL Baso # (Auto) 0.01 (0-0.2) K/uL PT Cancelled INR Cancelled APTT Cancelled PTT Ratio Cancelled Sodium 140 (136-145) mmol/L Potassium 3.9 (3.5-5.1) mmol/L Chloride 106 (98-107) mmol/L Carbon Dioxide 30 (21-32) mmol/L Anion Gap 4.0 (3-11) BUN 29 H (7-18) mg/dl Creatinine 1.09 (0.6-1.2) mg/dl Est Cr Clr Drug Dosing 48.1 ml/min Est GFR ( Amer) 55.9 Est GFR (Non-Af Amer) 48.2 BUN/Creatinine Ratio 26.6 H (10-20) Glucose 103 H (70-99) mg/dl Calcium 9.8 (8.5-10.1) mg/dl Ionized Calcium (1.12-1.32) mmol/L Total Bilirubin 0.5 (0.2-1) mg/dl AST 9 L (15-37) U/L ALT 17 (12-78) U/L Alkaline Phosphatase 100 (45-117) U/L Troponin I < 0.015 (0-0.045) ng/ml Total Protein 7.6 (6.4-8.2) gm/dl Albumin 3.9 (3.4-5.0) gm/dl Globulin 3.7 (2.5-4.0) gm/dl Albumin/Globulin Ratio 1.1 (0.9-2) Triglycerides (0-150) mg/dl Cholesterol (0-200) mg/dl LDL Cholesterol, Calc mg/dl VLDL Cholesterol, Calc mg/dl HDL Cholesterol mg/dl Cholesterol/HDL Ratio Lipase 107 (73-393) U/L 25-OH Vitamin D Total (30-100) ng/ml TSH (0.300-4.500) uIu/ml PTH Intact (18.4-80.1) pg/ml 06/15/19 06/15/19 06/15/19 Range/Units 10:15 13:06 13:06 WBC (4.8-10.8) K/uL RBC (4.2-5.4) M/uL Hgb (12.0-16.0) g/dL Hct (37-47) % MCV (80-100) fL MCH (25-34) pg MCHC (32-36) g/dL RDW Std Deviation (36.4-46.3) fL RDW Coeff of Chelo (11.5-14.5) % Plt Count (130-400) K/uL MPV (7.4-10.4) fL Immature Gran % (Auto) % Neut % (Auto) % Lymph % (Auto) % [place] % (Auto) % Eos % (Auto) % Baso % (Auto) % Immature Gran # (Auto) (0.00-0.02) K/uL Neut # (Auto) (1.4-6.5) K/uL Lymph # (Auto) (1.2-3.4) K/uL [place] # (Auto) (0.11-0.59) K/uL Eos # (Auto) (0-0.5) K/uL Baso # (Auto) (0-0.2) K/uL PT INR APTT PTT Ratio Sodium (136-145) mmol/L Potassium (3.5-5.1) mmol/L Chloride (98-107) mmol/L Carbon Dioxide (21-32) mmol/L Anion Gap (3-11) BUN (7-18) mg/dl Creatinine (0.6-1.2) mg/dl Est Cr Clr Drug Dosing ml/min Est GFR ( Amer) Est GFR (Non-Af Amer) BUN/Creatinine Ratio (10-20) Glucose (70-99) mg/dl Calcium (8.5-10.1) mg/dl Ionized Calcium (1.12-1.32) mmol/L Total Bilirubin (0.2-1) mg/dl AST (15-37) U/L ALT (12-78) U/L Alkaline Phosphatase (45-117) U/L Troponin I < 0.015 (0-0.045) ng/ml Total Protein (6.4-8.2) gm/dl Albumin (3.4-5.0) gm/dl Globulin (2.5-4.0) gm/dl Albumin/Globulin Ratio (0.9-2) Triglycerides 192 H (0-150) mg/dl Cholesterol 332 H (0-200) mg/dl LDL Cholesterol, Calc 238 mg/dl VLDL Cholesterol, Calc 38 mg/dl HDL Cholesterol 56 mg/dl Cholesterol/HDL Ratio 6 Lipase (73-393) U/L 25-OH Vitamin D Total 22.4 L (30-100) ng/ml TSH 2.980 (0.300-4.500) uIu/ml PTH Intact 249.0 H (18.4-80.1) pg/ml 06/15/19 06/15/19 Range/Units 13:06 13:06 WBC (4.8-10.8) K/uL RBC (4.2-5.4) M/uL Hgb (12.0-16.0) g/dL Hct (37-47) % MCV (80-100) fL MCH (25-34) pg MCHC (32-36) g/dL RDW Std Deviation (36.4-46.3) fL RDW Coeff of Chelo (11.5-14.5) % Plt Count (130-400) K/uL MPV (7.4-10.4) fL Immature Gran % (Auto) % Neut % (Auto) % Lymph % (Auto) % [place] % (Auto) % Eos % (Auto) % Baso % (Auto) % Immature Gran # (Auto) (0.00-0.02) K/uL Neut # (Auto) (1.4-6.5) K/uL Lymph # (Auto) (1.2-3.4) K/uL [place] # (Auto) (0.11-0.59) K/uL Eos # (Auto) (0-0.5) K/uL Baso # (Auto) (0-0.2) K/uL PT 34.0 H INR 3.6 H APTT 35.3 H PTT Ratio 1.3 Sodium (136-145) mmol/L Potassium (3.5-5.1) mmol/L Chloride (98-107) mmol/L Carbon Dioxide (21-32) mmol/L Anion Gap (3-11) BUN (7-18) mg/dl Creatinine (0.6-1.2) mg/dl Est Cr Clr Drug Dosing ml/min Est GFR ( Amer) Est GFR (Non-Af Amer) BUN/Creatinine Ratio (10-20) Glucose (70-99) mg/dl Calcium (8.5-10.1) mg/dl Ionized Calcium 1.28 (1.12-1.32) mmol/L Total Bilirubin (0.2-1) mg/dl AST (15-37) U/L ALT (12-78) U/L Alkaline Phosphatase (45-117) U/L Troponin I (0-0.045) ng/ml Total Protein (6.4-8.2) gm/dl Albumin (3.4-5.0) gm/dl Globulin (2.5-4.0) gm/dl Albumin/Globulin Ratio (0.9-2) Triglycerides (0-150) mg/dl Cholesterol (0-200) mg/dl LDL Cholesterol, Calc mg/dl VLDL Cholesterol, Calc mg/dl HDL Cholesterol mg/dl Cholesterol/HDL Ratio Lipase (73-393) U/L 25-OH Vitamin D Total (30-100) ng/ml TSH (0.300-4.500) uIu/ml PTH Intact (18.4-80.1) pg/ml Administered Medications Discontinued Medications Nitroglycerin (Nitro-Bid 2%) 0.5 inch EXT NOW STA Stop: 06/15/19 11:46 Last Admin: 06/15/19 11:56 Dose: 0.5 inch Documented by: [id number] Perflutren Lipid Microsphere (Definity) 0 ml IV ONCE ONE Stop: 06/15/19 12:54 Last Admin: 06/15/19 12:54 Dose: 3 ml Documented by: [id number] Imaging Data Radiologist's Impression: Radiology results as stated below per my review and the radiologist's interpretation: XR chest 1V portable CLINICAL HISTORY: 78 years-old Female presenting with Chest Pain. TECHNIQUE: Portable upright AP view of the chest was obtained. COMPARISON: 05/01/2019. FINDINGS: Median sternotomy wires and mediastinal surgical clips noted. Left subclavian pacer with leads to the right atrium and right ventricular apex. Atherosclerosis and tortuosity of the thoracic aorta. Cardiac silhouette borderline enlarged. Mild pulmonary vascular prominence and interstitial prominence. No focal opacity. No large effusion or pneumothorax. Degenerative changes of the thoracic spine. Upper abdomen normal. IMPRESSION: 1. Possible mild volume overload if any is present. No advanced congestive change or pulmonary edema. No other evidence of acute cardiopulmonary disease. Electronically signed by: Calvin Arriaga M.D. 06/15/2019 11:22 AM ECG Data Attestation: I personally reviewed and interpreted this ECG as follows: Indication: + chest pain Rate (beats per minute): 86 Rhythm: other (Paced Rhythm) ECG Chauncey: + Normal ECG ST segments: no ST elevation ECG Findings: no PACs and no PVCs Blood Pressure Blood Pressure Findings: Elevated blood pressure Blood Pressure Disposition: further management by hospitalist Discharge Plan Visit Data *Final* Discharge Date/Time: 06/15/19 15:35 Chief Complaint: Chest Pain ED Provider: Dave Sarkar Discharge Problem: Substernal chest pain, History of coronary artery disease Patient Disposition: Admitted As Inpatient Discharge Instructions Interventions: ED Discharge Assessment Last Done: 06/15/19 15:35 The scribe's documentation has been prepared under my direction and personally reviewed by me in its entirety. I confirm that the note above accurately reflects all work, treatment, procedures, and medical decision making performed by me.
[2019-06-15] MEDS ORDERED: RANOLAZINE 500 MG ER TAB PO SCH (21:00)
[2019-06-15] MEDS ORDERED: CARVEDILOL PHOSPHATE 20 MG PO SCH (21:00)
[2019-06-15] MEDS: carvediloL 12.5 MG TAB PO SCH (21:12)
[2019-06-15] MEDS: ISOSORBIDE MONO EXTENDED REL 60 MG TABCR PO SCH (21:12)
[2019-06-15] MEDS: AMLODIPINE BESYLATE 5 MG TAB PO SCH (21:12)
[2019-06-15] MEDS: ASPIRIN 81 MG ECTAB PO SCH (21:12)
[2019-06-15] MEDS: RANOLAZINE 500 MG ER TAB PO SCH (21:12)
[2019-06-16 00:42] LABS: Basophils # (auto) 0.02 K/uL (0-0.2); Basophils % (auto) 0.2 %; Eosinophils # (auto) 0.08 K/uL (0-0.5); Eosinophils % (auto) 0.9 %; Hematocrit (blood only) 41.6 % (37-47); Hemoglobin 13.7 g/dL (12.0-16.0); Immature Granulocytes # (auto) 0.05 K/uL (0.00-0.02); Immature Granulocytes % (auto) 0.5 %; Lymphocytes # (auto) 1.95 K/uL (1.2-3.4); Lymphocytes % (auto) 21.1 %; Mean Corpuscular Hemoglobin 30.2 pg (25-34); Mean Corpuscular Hgb Conc 32.9 g/dL (32-36); Mean Corpuscular Volume 91.6 fL (80-100); Mean Platelet Volume 11.5 fL (7.4-10.4); Monocytes # (auto) 0.77 K/uL (0.11-0.59); Monocytes % (auto) 8.3 %; Neutrophils # (auto) 6.38 K/uL (1.4-6.5); Platelet Count 224 K/uL (130-400); RDW Coefficient of Variation 14.8 % (11.5-14.5); RDW Standard Deviation 50.2 fL (36.4-46.3); Red Blood Count 4.54 M/uL (4.2-5.4); White Blood Count 9.25 K/uL (4.8-10.8)
[2019-06-16 01:00] LABS: Partial Thromboplastin Ratio 1.3; Partial Thromboplastin Time 34.4 Seconds (21.0-31.0); Prothrombin Time 34.1 Seconds (9.0-12.0)
[2019-06-16 01:04] LABS: INR 3.6 (0.9-1.1)
[2019-06-16] MEDS: NITROGLYCERIN SL 0.4 MG/TAB TAB SL PRN ×2 (04:33→09:57)
[2019-06-16 05:42] LABS: Basophils # (auto) 0.01 K/uL (0-0.2); Basophils % (auto) 0.1 %; Eosinophils # (auto) 0.05 K/uL (0-0.5); Eosinophils % (auto) 0.7 %; Hematocrit (blood only) 41.5 % (37-47); Hemoglobin 13.9 g/dL (12.0-16.0); Immature Granulocytes # (auto) 0.04 K/uL (0.00-0.02); Immature Granulocytes % (auto) 0.5 %; Lymphocytes # (auto) 1.52 K/uL (1.2-3.4); Lymphocytes % (auto) 20.3 %; Mean Corpuscular Hgb Conc 33.5 g/dL (32-36); Mean Corpuscular Volume 89.4 fL (80-100); Mean Platelet Volume 11.5 fL (7.4-10.4); Monocytes # (auto) 0.73 K/uL (0.11-0.59); Monocytes % (auto) 9.7 %; Neutrophils # (auto) 5.15 K/uL (1.4-6.5); Neutrophils % (auto) 68.7 %; Platelet Count 209 K/uL (130-400); RDW Standard Deviation 48.8 fL (36.4-46.3); Red Blood Count 4.64 M/uL (4.2-5.4)
[2019-06-16 06:16] LABS: BUN Creatinine Ratio 21.9 (10-20); Calcium 9.5 mg/dl (8.5-10.1); Creatinine Clr Calc Pharmacy 46.3 ml/min; Est GFR (African American) 53.5; Est GFR (Non-African American) 46.2; Magnesium 2.2 mg/dl (1.8-2.4); Potassium 4.1 mmol/L (3.5-5.1)
[2019-06-16] MEDS ORDERED: MoRPHine SULFATE 2 MG/ML CARP IV STA (08:09)
[2019-06-16] MEDS ORDERED: NITROGLYCERIN SL 0.4 MG/TAB TAB SL STA (08:10)
--- NOTE | 2019-06-16 08:18 | Hospitalist Progress Note ---
Date of Service June 16, 2019 Assessment & Plan (1) Substernal chest pain: -78 year old female with cardiac history who had last hospital admission in January 2019 for atrial fibrillation and rapid ventricular response/non-ST segment elevation microinfarction and reported that since that time she has been generally chest pain free. However, she began to have midsternal chest pains that are recurrent since Sunday06/13/19 that is not sufficiently received by Ranexa (ranolazine) or Nitro. Frequency and severity of the chest pains were concerning to the patient. She noted that pains appeared to be progressed even with minor exertion or body movements. patient reported taking nitro at home and nitro also given by EMS. nitro patch placed on chest by ED physician. patient currently chest pain free in the ED for now upon initial exam by hospitalist. -Allergy history pertinent for muscle aches to statin so patient gets Repatha (evolocumab) injections as outpatient for lipid control. also that in the past when she had cardiac cath in [place], the patient was told that she had anap hylaxis despite pre-medication to the dye contrast. -cardiology consult requested -admission troponin negative, repeat troponin 3 hours afterwards is also negative, continue to trend troponins -admission INR is 3.6, would not start other systemic anticoagulation at this time, hold coumadin for now as INR is supratherapeutic -admission to telemetry -nitro and morphine prn if more chest pains -continue isosorbide mononitrate 60 mg BID -home dose Coreg CR is nonformulary and will place on carvedilol 12.5 mg BID for now as this was previously recommended by cardiology in January 2019 admission -continue Ranexa (ranolazine) 06/15/19: patient evaluated by cardiology Dr. Doyle and reviewed echocardiogram on admission as Echocardiogram with no acute changes (EF 60 to 65%; subtle hypokinesis of the inferior and posterior wall at the base with otherwise normal wall motions and preserved EF not changed from prior 02/15/19 ) increase Ranexa to thousand milligrams twice per day; increase amlodipine to 2.5 mg twice per day with room for further upward titration 06/16/19: Patient reported chest pain around 4:30 AM and this was also reported by night time doctor to day time hospitalist. the subsequent troponin from 5:30 AM is negative. Patient did get nitro from night time doctor. Patient was able to eat the breakfast this AM without events. Patient seen in AM by daytime hospitalist. The breakfast tray empty. Discussed with patient that current workup not finding evidence of acute coronary syndrome but that symptoms may be from angina. She also expressed of being against cardiac cath interventions because of history of reported anaphylaxis in the past from cardiac cath. During the interview and after physical exam, patient again reported chest pain and symptom of running down left arm. She started to doing some quick breathing and blowing air out of her mouth as if trying to alleviate the chest discomfort. Patient was given morphine and nitro / morphine and EKG performed which did not show any lead changes compared to from 06/15/19 day time. troponin also drawn and pending results -appreciate further cardiology recommendations Dyslipidemia -lipid panel performed on 06/15/19 was done as non-fasting test -Allergy history pertinent for muscle aches to statin so patient gets Repatha (evolocumab) injections as outpatient Presence of Pacemaker Paroxysmal atrial fibrillation -last hospital admission in January 2019 for atrial fibrillation and rapid ventricular response -telemetry monitoring of heart rates have been paced and in the 60s Supratherapeutic INR, on admission DVT prophylaxis -admission INR is 3.6 on 06/15/19, would not start other systemic anticoagulation at this time, hold coumadin for now as INR is supratherapeutic, INR is still 3.6 on 06/16/19 -goal INR when on coumadin is 2 to 3 -History of deep vein thrombosis/pulmonary embolism in the past; check ultrasound of lower extremities to rule out any current deep vein thrombosis (2) Hypothyroidism: -TSH of 2.98 -will hold home dose levothyroxine for now during chest pain work up (3) Hyperparathyroidism: -patient reports that her outpatient doctors considering to have her get parathyroidectomy in future -PTH is elevated but admission calcium of 9.8 within normal parameters, ionized calcium 1.28 is within normal parameters -25-OH vitamin D is 22.4 Full Code family contact: son [phone] Subjective Patient reported chest pain around 4:30 AM and this was also reported by night time doctor to day time hospitalist. the subsequent troponin from 5:30 Am is negative. Patient did get nitro from night time doctor. Patient was able to eat the breakfast this AM without events. Patient seen in AM by daytime hospitalist. The breakfast tray empty. Discussed with patient that current workup not finding evidence of acute coronary syndrome but that symptoms may be from angina. She also expressed of being against cardiac cath interventions because of history of reported anaphylaxis in the past from cardiac cath. During the interview and after physical exam, patient again reported chest pain and symptom of running down left arm. She started to doing some quick breathing and blowing air out of her mouth as if trying to alleviate the chest discomfort. Patient was given morp opal and nitro / morphine and EKG performed which did not show any lead changes compared to from 06/15/19 day time. troponin also drawn and pending results Review of Systems Review of Systems: All systems reviewed & are unremarkable except as noted in HPI & below Physical Exam Constitutional: + obese and comfortable Eyes: PERRL, conjunctivae normal, anicteric sclerae EOM intact bilaterally ENMT: external ear and nose normal, oropharynx normal Neck: normal visual inspection Respiratory: normal respiratory effort, lungs clear to auscultation Cardiovascular: Rate/Rhythm: regular rate and regular rhythm Gastrointestinal (Abdomen): normal bowel sounds, soft, nontender, no hepatosplenomegaly Musculoskeletal: Head/Neck/Chest: normocephalic and head atraumatic Neurologic: PERRL, EOMI, accommodation nl, no face palsy, no dysarthria CN's II-XI intact bilaterally Psychiatric: A+Ox3, euthymic affect Results & Data Vital Signs (Past 12 Hours) Vital Signs Temp Pulse Pulse Resp BP Pulse Ox 06/16/19 05:03 36.3 C L 63 18 135/86 94 06/16/19 04:37 127/89 06/16/19 04:34 61 24 158/98 H 98 06/15/19 23:48 36.7 C 67 18 112/71 94
[2019-06-16] MEDS: ISOSORBIDE MONO EXTENDED REL 60 MG TABCR PO SCH ×3 (08:29→20:05)
[2019-06-16] MEDS: RANOLAZINE 500 MG ER TAB PO SCH ×3 (08:29→20:05)
[2019-06-16] MEDS: AMLODIPINE BESYLATE 5 MG TAB PO SCH ×3 (08:29→20:05)
[2019-06-16] MEDS: carvediloL 12.5 MG TAB PO SCH ×3 (08:29→20:05)
[2019-06-16] MEDS ORDERED: CARVEDILOL PHOSPHATE 40 MG PO SCH (09:00)
[2019-06-16] MEDS ORDERED: AMLODIPINE BESYLATE 5 MG TAB PO SCH (09:00)
[2019-06-16] MEDS ORDERED: LORazepam 0.5 MG TAB PO STA (09:10)
[2019-06-16] MEDS ORDERED: NITROGLYCERIN 0.1 MG/HR PATCH TD ONE (10:45)
[2019-06-16] MEDS ORDERED: NITROGLYCERIN 0.2 MG/HR PATCH TD ONE (10:45)
[2019-06-16] MEDS: NITROGLYCERIN 0.3 MG/HR PATCH TD SCH (11:02)
--- NOTE | 2019-06-16 11:12 | Cardiology Progress Note ---
Date of Service June 16, 2019 Assessment & Plan (1) Substernal chest pain: There is no cardiac component to her chest discomfort. All cardiac testing has come back unremarkable and sublingual nitroglycerin is not effective. The patient has a significant amount of stress and anxiety regarding her current home situation with her demented and her daughter going through divorce. We have been suggesting treatment for anxiety as an outpatient for quite some time now. At this time I will ask our psychiatric colleagues to evaluate her for help in medical treatment of her anxiety. (2) Hyperparathyroidism: (3) History of coronary artery disease: Stable Continue outpatient medical regimen along with the increased dose of Ranexa. (4) SSS (sick sinus syndrome): (5) Pacemaker: (6) Paroxysmal atrial fibrillation: Current rhythm atrial paced. Last pacemaker interrogation reveals patient predominantly in atrial paced rhythm. (7) Pulmonary embolism: Subjective Patient seen and examined, states that she has had recurrent chest discomfort overnight but again is not relieved by nitroglycerin. She states that this is the same pain that she has been having for several months and is previously been treated as an outpatient for. She states that she is very anxious worrying about her at home for whom she cares given his severe dementia. Her daughter is also in her home right now after going through a very messy divorce. Telemetry reviewed: An atrially paced rhythm Review of Systems Review of Systems: All systems reviewed & are unremarkable except as noted in HPI & below Physical Exam Physical Exam: General: Awake, alert and oriented x 3. No acute distress. HEENT: Normocephalic, atraumatic. Pupils equal, round and reactive to light and accommodation. Extraocular muscles are intact. Anicteric sclera. Moist mucous membranes. Neck: No JVD. No bruit. Cardiovascular: Regular. Positive S-4. Normal S-1 and S-2. No S-3. No murmurs or rubs. Pulmonary: Clear to auscultation B/L. No rales, rhonchi or wheezing Abdomen: Bowel sounds x 4, soft. No rebound, guarding or tenderness. No organomegaly. Extremities: No clubbing, cyanosis or edema. +2 pedal pulses bilaterally. Skin: Warm and dry. Results & Data Vital Signs (Past 12 Hours) Vital Signs Temp Pulse Pulse Resp BP BP Pulse Ox 06/16/19 09:57 67 148/91 H 06/16/19 08:23 36.3 C L 69 20 126/79 97 06/16/19 05:03 36.3 C L 63 18 135/86 94 06/16/19 04:37 127/89 06/16/19 04:34 61 24 158/98 H 98 06/15/19 23:48 36.7 C 67 18 112/71 94
--- NOTE | 2019-06-16 13:51 | Psychiatric Consultation ---
Date of Consultation June 16, 2019 Impression / Recommendations Impression 78-year-old female admitted medically on 06/15/19 after presenting to the ED with substernal chest pain. Pt has a rather significant cardiac history; however, on this admission probably cardiac causes have reportedly been ruled out. Psychiatric consult service was requested to evaluate patient for anxiety, concern this may be contributing to her chest pain. This idea was reviewed with the patient, who verbalizes minimal understanding regarding how anxiety can manifest as physical symptoms. It is likely patient may respond well to continued education regarding anxiety and its signs and symptoms. It seems most appropriate at this time that robust education be provided to the patient routinely during her hospitalization regarding anxiety and various coping strategies. Although patient may eventually benefit from antianxiety medications, it seems most effective to begin with basic education in order to promote an understanding of anxiety as a disease, as well as how anxiety can be related to progression of cardiac disease. Would begin with psychoeducation and therapy referral prior to initiating medications, as compliance may be poor if the reason for medication is poorly understood.It seems appropriate to utilize lorazepam if necessary for acute anxiety during the patient's hospitalization; however, would suggest discontinuation of the medication on discharge. Patient reports her son struggles with substance abuse, and has misused pain medications and benzodiazepines - this, coupled with minimal efficacy, may lead to possible misuse and inappropriate diversion of the medication. Will continue to evaluate patient's case and offer education as patient is willing. Psychiatric liaison to explore willingness for outpatient therapy and make referrals as desired. Pt denies SI/HI, SIB urges, A/V hallucinations, paranoia and other acute psychiatric concerns. Inpatient psychiatric admission is not indicated at this time. Appreciate the opportunity to participate in the care of this patient. Dr. Vinita Blue was directly involved in review and discussion of the patient's case and participated in medical decision making regarding treatment recommendations. Psych History Identifying Data 78-year-old female admitted medically on 06/15/19 with substernal chest pain. It is reported that cardiac etiology has been ruled out, and anxiety is considered to be a possible contributing factor for patient's current presentation. Psychiatric consultation is requested to evaluate patient for anxiety. Chief Complaint "Did you bring a pill or a shot with you? Something to take this pain away? It's not the heart, they ruled out the heart, but I don't understanding how this kind of pain could come from anxiety." History of Present Illness Milena Lozoya is a 78-year-old female admitted medically on 06/15/19 after presenting to the ED with substernal chest pain. Psychiatric consultation was requested as it was questioned if anxiety may be contributing to her presentation. Pt's case was reviewed with supervising psychiatrist and psychiatric nurse liaison. Patient is cooperative with psychiatric evaluation, though admits to limited understanding as to why our service is involved in her current treatment. Patient states she has struggled with angina for several months, and that her pain generally responds to nitroglycerin. She admits that she is concerned that the pain is still present despite cardiac cause being ruled out. She states the symptoms have occurred "off and on" in the past, but pain has been "stronger and last longer" for the last week. Patient states she finally presented to the emergency room when the pain "would not go away." The patient states that she has been involved in conversations questioning if anxiety may be contributing to her presentation. She states she is not sure how this could be the case, "I do not get it, this is the same chest pain I have always felt, and now they are telling me it is not my heart. I just need something that is going to make the pain go away. Nothing or giving me is helping." Patient continues to verbalize to this provider that she "does not put stress and chest pain together", even believing that she has never truly dealt with anxiety in the past. Patient does admit to feeling "stressed", stating it is difficult to care for her who has been diagnosed with dementia. She also states that her son and daughter are living at home with them, which increases the stress and the house. She does admit that the stress has been ongoing for quite some time, and denies any acute stressors. When attempts were made to explain to patient how anxiety can manifest as physical symptoms, she continues to verbalize limited understanding of the topic. She continues to state "the chest pain comes to me without me thinking of stress. It is worse when I am active, not worse when I am worried." Patient denies difficulty falling or staying asleep, changes in appetite, changes in energy or concentration, or other acute concerns. She denies suicidal ideation, urges to self-harm, auditory/visual hallucinations, and paranoia. Patient denies prior psychiatric history and states she has never been treated with psychotropic medications for anxiety in the past. Patient states that she has never pursued counseling for anxiety, but is not opposed to the idea. Patient does admit to some resistance to medications, which is especially concerning as her language continues to demonstrate an expectation that new medications would target her chest pain directly. Education was offered to the patient regarding antianxiety medications, and how they affect the body overall to improve symptoms. Patient states "they gave me an anxiety medication, it did not help at all." Past Psychiatric History Previous Psych History: Patient denies prior psychiatric history, stating she has never been diagnosed with anxiety or depression. She denies prior psychiatric medication trials, and has not previously pursued outpatient therapy. She denies history of suicide attempts or inpatient psychiatric hospitalization. Allergies Allergy/AdvReac Type Severity Reaction Status Date / Time prednisone Allergy Severe GI Verified 06/15/19 11:33 PAIN-LED TO PANCREATITIS Iodinated Contrast Media Allergy Unknown HIVES-ANAPH Verified 06/15/19 11:33 YLACTIC losartan Allergy Unknown NAUSEA AND Verified 06/15/19 11:33 VOMITING ranitidine Allergy Unknown NAUSEA AND Verified 06/15/19 11:33 VOMITING,ACHY ether Allergy Unknown Verified 06/15/19 11:33 rosiglitazone AdvReac Severe BLOOD CLOTS Verified 06/15/19 11:33 atorvastatin [From Lipitor] AdvReac Muscle Pain Verified 06/15/19 11:33 ezetimibe [From Zetia] AdvReac Muscle Pain Verified 06/15/19 11:33 lisinopril AdvReac Cough Verified 06/15/19 11:33 rosuvastatin [From Crestor] AdvReac Muscle Pain Verified 06/15/19 11:33 Home Medications Home Medications Medication Instructions Recorded Confirmed Type aspirin 1 tab PO QPM 03/19/18 06/15/19 History isosorbide mononitrate 60 mg PO BID 03/19/18 06/15/19 History levothyroxine 50 mcg PO QAM 03/19/18 06/15/19 History nitroglycerin 1 tab SUBLINGUAL UD PRN 03/19/18 06/15/19 History carvedilol phosphate [Coreg CR] 40 mg PO QAM 11/02/18 06/15/19 History warfarin [Coumadin] 2.5 mg PO DAILY 11/02/18 06/15/19 History omeprazole 20 mg PO DAILY 02/14/19 06/15/19 History ranolazine 500 mg PO BID 02/14/19 06/15/19 History sucralfate 1,000 mg PO DAILY 02/14/19 06/15/19 History acetaminophen [Tylenol Extra 1,000 mg PO Q6H PRN 05/01/19 06/15/19 History Strength] amlodipine [Norvasc] 2.5 mg PO DAILY 05/01/19 06/15/19 History carvedilol phosphate 20 mg PO HS 05/01/19 06/15/19 History evolocumab [Repatha SureClick] 140 mg SUBCUT UD 05/01/19 06/15/19 History potassium chloride [Klor-Con M20] 20 meq PO MOWEFR 05/01/19 06/15/19 History Family History Family history of mental health conditions is not clearly known. Patient is concerned that her sister is struggling with depression. Substance Abuse History Patient denies routine use or regular experimentation with illicit substances. 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) Marital Status: ( diagnosed with dementia, patient is primary caregiver) Number Of Children: 5 adult children, 2 of whom live with the patient Beliefs That Will Affect Care: None History of Legal Problems: Denies Psychological Trauma History Comment: Denies Patient History Medical History 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) Atrial fibrillation (Chronic) CAD (coronary artery disease) (Chronic) "s/p CABG x 3, PCI x 3" DVT (deep venous thrombosis) (Chronic) Dyslipidemia (Chronic) GERD (gastroesophageal reflux disease) (Chronic) HTN (hypertension) (Chronic) Hypothyroidism (Chronic) IPMN (intraductal papillary mucinous neoplasm) (Chronic) Pacemaker (Chronic) Pulmonary embolism (Chronic) SSS (sick sinus syndrome) (Chronic) Surgical History H/O arthroscopy of knee (Chronic) H/O arthroscopy of shoulder (Chronic) History of hysterectomy (Chronic) Hx of adenoidectomy (Chronic) Hx of appendectomy (Chronic) Hx of cataract surgery (Chronic) Hx of cholecystectomy (Chronic) Hx of hemorrhoidectomy (Chronic) Hx of tonsillectomy (Chronic) S/P BSO (bilateral salpingo-oophorectomy) (Chronic) S/P CABG x 3 (Chronic) Family History Mother Stroke Social History Preferred Language: Polish Communication Ability: Effective [place] Operator Required: No Beliefs That Will Affect Care: None Current Living Situation: Spouse and Family Current Living Situation Comment: SON LIVES WITH PT Other Information That Helps Us Care for You: No Feels Safe at Home: Yes Safety Concerns: Feels Safe At This Time Smoking Status: Never smoker Do You Dip or Chew Tobacco: No ; Second Hand Exposure: No ; Tobacco Cessation Education Requested by Patient: No Hx Alcohol Use: No Hx Substance Use: No Physical Exam Psychiatric: Orientation: alert, oriented x 3 and cooperative Apperance: appropriately dressed, appropriately groomed and appeared stated age Obese, female laying in no acute distress. Appropriately dressed in hospital gown. Pt appears well groomed, curly white hair appearing clean and neatly styled. Eye Contact: good eye contact Motor Behavior: no abnormal motor movements (observed while laying in bed) Speech: normal rate/rhythm/volume of speech Affect: + anxious affect (mildly) and mood congruent with affect Mood: + anxious mood (admits to being "stressed" reporting concern regarding continued chest pain) Thought Process: goal directed thought process, clear/coherent thought process and thought association intact Thought Content: reality based without delusions; no hopelessness and no worthlessness Suicidal Thoughts: denies suicidal thoughts and denies suicidal intent Homicidal Thoughts: denies homicidal thoughts Hallucinations: no auditory hallucinations and no visual hallucinations Cognition: attention grossly intact and language grossly intact Insight: + limited insight Judgement: + fair judgement Vital Signs (Past 24 Hours): Last Vital Signs Temp 36.9 C 06/16/19 11:48 Pulse 64 06/16/19 12:24 Resp 20 06/16/19 11:48 BP 126/79 06/16/19 12:24 Pulse Ox 93 06/16/19 11:48 Review of Systems Constitutional: denied Cardiovascular: reports continued substernal chest pain Respiratory: denied Gastrointestinal: denied Neurological: denied Psychiatric: denies symptoms other than stated above Total of at least 10 systems reviewed, pertinent positives as above and in HPI. Results & Data Medications Administered Acetaminophen (Tylenol) 325 mg PO Q6H PRN PRN Reason: Pain or Fever Stop: 07/15/19 12:29 Last Admin: 06/15/19 21:15 Dose: 325 mg Documented by: [id number] Amlodipine Besylate (Norvasc) 2.5 mg PO BID [facility] Stop: 07/15/19 20:59 Last Admin: 06/16/19 11:02 Dose: 2.5 mg Documented by: [id number] Admin: 06/15/19 21:12 Dose: 2.5 mg Documented by: [id number] Aspirin (Ecotrin Ectab) 81 mg PO QPM [facility] Stop: 07/15/19 20:59 Last Admin: 06/15/19 21:12 Dose: 81 mg Documented by: [id number] Carvedilol (Coreg) 12.5 mg PO BID [facility] Stop: 07/15/19 20:59 Last Admin: 06/16/19 11:01 Dose: 12.5 mg Documented by: [id number] Admin: 06/15/19 21:12 Dose: 12.5 mg Documented by: [id number] Isosorbide Mononitrate (Imdur Extended Rel) 60 mg PO BID [facility] Stop: 07/15/19 20:59 Last Admin: 06/16/19 11:01 Dose: 60 mg Documented by: [id number] Admin: 06/15/19 21:12 Dose: 60 mg Documented by: [id number] Nitroglycerin (Nitrostat) 0.4 mg SL Q6H PRN PRN Reason: Chest Pain Stop: 07/15/19 12:27 Last Admin: 06/16/19 09:57 Dose: 0.4 mg Documented by: [id number] Admin: 06/16/19 04:33 Dose: 0.4 mg Documented by: [id number] Nitroglycerin (Nitro-Dur 0.3mg/Hr) 1 patch TD QAM [facility] Stop: 07/16/19 09:59 Last Admin: 06/16/19 11:02 Dose: Not Given Documented by: [id number] Ranolazine (Ranexa) 1,000 mg PO BID [facility] Stop: 07/15/19 20:59 Last Admin: 06/16/19 11:02 Dose: 1,000 mg Documented by: [id number] Admin: 06/15/19 21:12 Dose: 1,000 mg Documented by: [id number] Coding Level of Care Code 12913 [facility] Intl Hosp Care Lvl 3
[2019-06-16] MEDS ORDERED: MoRPHine SULFATE 4 MG/ML 1 ML CARP\\VIAL IV STA (17:25)
[2019-06-16] MEDS ORDERED: PANTOprazole 40 MG TAB PO STA (17:35)
[2019-06-16] MEDS: LORazepam 0.5 MG TAB PO PRN (20:05)
[2019-06-16] MEDS: ASPIRIN 81 MG ECTAB PO SCH (20:06)
[2019-06-16] MEDS ORDERED: PANTOprazole 40 MG TAB PO SCH (21:00)
[2019-06-17 06:23] LABS: Basophils # (auto) 0.01 K/uL (0-0.2); Basophils % (auto) 0.1 %; Eosinophils # (auto) 0.08 K/uL (0-0.5); Eosinophils % (auto) 0.9 %; Hematocrit (blood only) 41.9 % (37-47); Hemoglobin 13.9 g/dL (12.0-16.0); Immature Granulocytes # (auto) 0.03 K/uL (0.00-0.02); Immature Granulocytes % (auto) 0.3 %; Lymphocytes # (auto) 1.22 K/uL (1.2-3.4); Lymphocytes % (auto) 13.1 %; Mean Corpuscular Hemoglobin 29.8 pg (25-34); Mean Corpuscular Hgb Conc 33.2 g/dL (32-36); Mean Corpuscular Volume 89.7 fL (80-100); Mean Platelet Volume 11.5 fL (7.4-10.4); Monocytes # (auto) 0.93 K/uL (0.11-0.59); Neutrophils # (auto) 7.06 K/uL (1.4-6.5); Neutrophils % (auto) 75.6 %; Platelet Count 211 K/uL (130-400); RDW Coefficient of Variation 15.1 % (11.5-14.5); RDW Standard Deviation 49.4 fL (36.4-46.3); Red Blood Count 4.67 M/uL (4.2-5.4); White Blood Count 9.33 K/uL (4.8-10.8)
[2019-06-17 07:00] LABS: Albumin Level 3.1 gm/dl (3.4-5.0); BUN Creatinine Ratio 24.2 (10-20); Calcium 9.9 mg/dl (8.5-10.1); Creatinine Clr Calc Pharmacy 44.8 ml/min; Est GFR (African American) 51.3; Est GFR (Non-African American) 44.3; Potassium 4.3 mmol/L (3.5-5.1)
[2019-06-17 07:05] LABS: Bilirubin,Total 0.6 mg/dl (0.2-1); Globulin 3.1 gm/dl (2.5-4.0); Total Protein 6.2 gm/dl (6.4-8.2)
[2019-06-17] MEDS: NITROGLYCERIN SL 0.4 MG/TAB TAB SL PRN (08:11)
[2019-06-17] MEDS: LORazepam 0.5 MG TAB PO PRN (08:18)
[2019-06-17] MEDS: NITROGLYCERIN 0.3 MG/HR PATCH TD SCH (08:19)
[2019-06-17] MEDS: RANOLAZINE 500 MG ER TAB PO SCH (08:19)
[2019-06-17] MEDS: AMLODIPINE BESYLATE 5 MG TAB PO SCH (08:19)
[2019-06-17] MEDS: carvediloL 12.5 MG TAB PO SCH (08:20)
[2019-06-17] MEDS: ISOSORBIDE MONO EXTENDED REL 60 MG TABCR PO SCH (08:20)
[2019-06-17 08:28] LABS: INR 2.4 (0.9-1.1); Partial Thromboplastin Ratio 1.2; Partial Thromboplastin Time 32.3 Seconds (21.0-31.0); Prothrombin Time 23.1 Seconds (9.0-12.0)
[2019-06-17] MEDS ORDERED: PANTOprazole 40 MG TAB PO SCH (09:00)
[2019-06-17] MEDS ORDERED: WARFARIN SOD 2.5 MG TAB PO STA (12:35)
--- NOTE | 2019-06-17 13:38 | Hospitalist Progress Note ---
Date of Service June 17, 2019 Assessment & Plan (1) Substernal chest pain: -78 year old female with cardiac history who had last hospital admission in January 2019 for atrial fibrillation and rapid ventricular response/non-ST segment elevation microinfarction and reported that since that time she has been generally chest pain free. However, she began to have midsternal chest pains that are recurrent since Sunday06/13/19 that is not sufficiently received by Ranexa (ranolazine) or Nitro. Frequency and severity of the chest pains were concerning to the patient. She noted that pains appeared to be progressed even with minor exertion or body movements. patient reported taking nitro at home and nitro also given by EMS. nitro patch placed on chest by ED physician. patient currently chest pain free in the ED for now upon initial exam by hospitalist. -Allergy history pertinent for muscle aches to statin so patient gets Repatha (evolocumab) injections as outpatient for lipid control. also that in the past when she had cardiac cath in [place], the patient was told that she had anap hylaxis despite pre-medication to the dye contrast. -continue isosorbide mononitrate 60 mg BID -home dose Coreg CR is nonformulary and will place on carvedilol 12.5 mg BID for now as this was previously recommended by cardiology in January 2019 admission -continue Ranexa (ranolazine) 06/15/19: patient evaluated by cardiology Dr. Doyle and reviewed echocardiogram on admission as Echocardiogram with no acute changes (EF 60 to 65%; subtle hypokinesis of the inferior and posterior wall at the base with otherwise normal wall motions and preserved EF not changed from prior 02/15/19 ) increase Ranexa to thousand milligrams twice per day; increase amlodipine to 2.5 mg twice per day with room for further upward titration 06/16/19: Patient reported chest pain around 4:30 AM and this was also reported by night time doctor to day time hospitalist. the subsequent troponin from 5:30 AM is negative. Patient did get nitro from night time doctor. Patient was able to eat the breakfast this AM without events. Patient seen in AM by daytime hospitalist. The breakfast tray empty. Discussed with patient that current workup not finding evidence of acute coronary syndrome but that symptoms may be from angina. She also expressed of being against cardiac cath interventions because of history of reported anaphylaxis in the past from cardiac cath. During the interview and after physical exam, patient again reported chest pain and symptom of running down left arm. She started to doing some quick breathing and blowing air out of her mouth as if trying to alleviate the chest discomfort. Patient was given morphine and nitro / morphine and EKG performed which did not show any lead changes compared to from 06/15/19 day time. troponin negative. patient had trial of nitro, ativan -06/17/19: Patient did well overnight and no discomforts. She did report chest discomfort when in bathroom this AM. This resolved. Patient continues to be breathing on room. No plans by cardiology for any invasive testing. Patient was seen by psychiatry as there was some suggestion by cardiology whether some chest discomforts are anxiety related. Patient has been counseled by psychiatry service. Hospitalist have discussed with patient that it is unlikely that all chest discomforts should be attributed to anxiety alone. Discussed at length of recent changes to medication regimen for angina and blood pressure. Also of barrett george's history of gastritis for which she was found to have mild gastritis by upper endoscopy in 11/2017 and that patient to take increased omeprazole at home in case any contribution by gastritis (patient not interested in repeat upper endoscopy in hospital) and she has thoughts about outpatient gastroenterology follow up. Patient requesting to be discharged to home To summarize: Initial impression of chest pain from angina or cardiac in origin. however troponins negative x 6 in total and echocardiogram with no acute changes (EF 60 to 65%; subtle hypokinesis of the inferior and posterior wall at the base with otherwise normal wall motions and preserved EF not changed from prior 02/15/19 ) discharge medications sent electronically to: [facility] [address] [place] [address] , [place] [address] for -Sublingual tablet 0.4 mg every 5 minutes up to 3 doses have been prescribed -amlodipine 2.5 mg twice a day as initiated during the hospital stay by cardiology service to alleviate frequency of chest pains -ranolazine (Ranexa) 1000 mg twice a day as initiated by cardiology service which is an increase from patient's original 500 mg twice a day to alleviate frequency of chest pains -omeprazole 40 mg daily on discharge which is an increase from omeprazole 20 mg daily at home in case there is some component of gastritis to chest discomforts (trial of ativan was started on this hospital stay in case of some component of anxiety contributory to chest pains, but inpatient psychiatry recommending further evaluation with therapists in the [place] area and referral information given to the patient and before any longer trial of anxiety medications) Patient should follow up with primary care doctor and have re-assessment including INR labs check and blood pressure check. discharge day INR is 2.4 on 06/17/19. patient can continue home coumadin 2.5 mg daily for now Primary care doctor 06/26/2019 2:00 PM Provider Shonda Oseguera MD Department Internal Medicine [facility] 07/03/2019 10:00 AM Provider Mark Bateman DO Department Neurology [facility] 07/07/2019 9:00 AM Provider Shonda Oseguera MD Department Internal Medicine [facility] 07/07/2019 10:00 AM Provider [facility] 11:10 AM Provider [facility] Specialty Medication, [facility] Department [facility] 07/29/2019 9:00 AM Provider [facility] Department Cardiology [facility] 08/22/2019 11:00 AM Provider Lenora Becker MD Department Dermatology [facility] 09/05/2019 2:20 PM Provider Tomas Leo MD Department Nephrology, [facility] 11/07/2019 10:00 AM [facility] 11[facility] AM [facility] -lipid panel performed on 06/15/19 was done as non-fasting test -Allergy history pertinent for muscle aches to statin so patient gets Repatha (evolocumab) injections as outpatient Presence of Pacemaker Paroxysmal atrial fibrillation -last hospital admission in January 2019 for atrial fibrillation and rapid ventricular response -telemetry monitoring of heart rates have been paced and in the 60s Supratherapeutic INR, on admission DVT prophylaxis -admission INR is 3.6 on 06/15/19, would not start other systemic anticoagulation at this time, hold coumadin for now as INR is supratherapeutic, INR is still 3.6 on 06/16/19 -goal INR on coumadin is 2 to 3 -Patient should follow up with primary care doctor and have re-assessment including INR labs check and blood pressure check. discharge day INR is 2.4 on 06/17/19. patient can continue home coumadin 2.5 mg daily for now -History of deep vein thrombosis/pulmonary embolism in the past; check ultrasound of lower extremities to with no deep vein thrombosis (2) Hypothyroidism: -TSH of 2.98 -will hold home dose levothyroxine for now during chest pain work up (3) Hyperparathyroidism: -PTH is elevated but admission calcium of 9.8 within normal parameters, ionized calcium 1.28 is within normal parameters -25-OH vitamin D is 22.4 -discussed with patient that her outpatient telemedicine encounter recently does not strictly recommending any urgent paraythyroidectomy Full Code family contact: son [phone] Discharge Diagnosis: substernal chest pain, dyslipidemia, paroxysmal atrial fibrillation, supratherapuetic INR (resolved and discharge INR is 2.4 on 06/17/19) hypothyroidism, hypoparathyroidism Subjective Patient did well overnight and no discomforts. She did report chest discomfort when in bathroom this AM. This resolved. Patient continues to be breathing on room. No plans by cardiology for any invasive testing. Patient was seen by psychiatry as there was some suggestion by cardiology whether some chest discomforts are anxiety related. Patient has been counseled by psychiatry service. Hospitalist have discussed with patient that it is unlikely that all chest discomforts should be attributed to anxiety alone. Discussed at length of recent changes to medication regimen for angina and blood pressure. Also of patient's history of gastritis for which she was found to have mild gastritis by upper endoscopy in 11/2017 and that patient to take increased omeprazole at home in case any contribution by gastritis (patient not interested in repeat upper endoscopy in hospital) and she has thoughts about outpatient gastroenterology follow up. Patient requesting to be discharged to home no symptoms of shortness of breath or headache or dizziness or abdominal pain or dysphagia or vomiting Review of Systems Review of Systems: All systems reviewed & are unremarkable except as noted in HPI & below Physical Exam Constitutional: + obese and comfortable Eyes: PERRL, conjunctivae normal, anicteric sclerae EOM intact bilaterally ENMT: external ear and nose normal, oropharynx normal Neck: normal visual inspection Respiratory: normal respiratory effort, lungs clear to auscultation Cardiovascular: Rate/Rhythm: regular rate and regular rhythm Gastrointestinal (Abdomen): normal bowel sounds, soft, nontender, no hepatosplenomegaly Musculoskeletal: Head/Neck/Chest: normocephalic and head atraumatic Neurologic: PERRL, EOMI, accommodation nl, no face palsy, no dysarthria CN's II-XI intact bilaterally Psychiatric: A+Ox3, euthymic affect Results & Data Vital Signs (Past 12 Hours) Vital Signs Temp Pulse Resp BP BP Pulse Ox 06/17/19 12:16 36.7 C 69 122/76 93 06/17/19 08:12 72 149/95 H 96 06/17/19 07:00 36.3 C L 60 20 110/72 95 06/17/19 03:38 36.6 C 68 20 109/72 95
--- NOTE | 2019-06-17 13:44 | Discharge Summary ---
Date of Service June 17, 2019 Admission HPI Per Admitting Provider Milena Lozoya is a 78-year-old female admitted medically on 06/15/19 after presenting to the ED with substernal chest pain. Psychiatric consultation was requested as it was questioned if anxiety may be contributing to her presentation. Pt's case was reviewed with supervising psychiatrist and psychiatric nurse liaison. Patient is cooperative with psychiatric evaluation, though admits to limited understanding as to why our service is involved in her current treatment. Patient states she has struggled with angina for several months, and that her pain generally responds to nitroglycerin. She admits that she is concerned that the pain is still present despite cardiac cause being ruled out. She states the symptoms have occurred "off and on" in the past, but pain has been "stronger and last longer" for the last week. Patient states she finally presented to the emergency room when the pain "would not go away." The patient states that she has been involved in conversations questioning if anxiety may be contributing to her presentation. She states she is not sure how this could be the case, "I do not get it, this is the same chest pain I have always felt, and now they are telling me it is not my heart. I just need something that is going to make the pain go away. Nothing or giving me is helping." Patient continues to verbalize to this provider that she "does not put stress and chest pain together", even believing that she has never truly dealt with anxiety in the past. Patient does admit to feeling "stressed", stating it is difficult to care for her who has been diagnosed with dementia. She also states that her son and daughter are living at home with them, which increases the stress and the house. She does admit that the stress has been ongoing for quite some time, and denies any acute stressors. When attempts were made to explain to patient how anxiety can manifest as physical symptoms, she continues to verbalize limited understanding of the topic. She continues to state "the chest pain comes to me without me thinking of stress. It is worse when I am active, not worse when I am worried." Patient denies difficulty falling or staying asleep, changes in appetite, changes in energy or concentration, or other acute concerns. She denies suicidal ideation, urges to self-harm, auditory/visual hallucinations, and paranoia. Patient denies prior psychiatric history and states she has never been treated with psychotropic medications for anxiety in the past. Patient states that she has never pursued counseling for anxiety, but is not opposed to the idea. Patient does admit to some resistance to medications, which is especially concerning as her language continues to demonstrate an expectation that new medications would target her chest pain directly. Education was offered to the patient regarding antianxiety medications, and how they affect the body overall to improve symptoms. Patient states "they gave me an anxiety medication, it did not help at all." Admission Exam Per Admitting Provider Constitutional: + obese and comfortable Eyes: PERRL, conjunctivae normal, anicteric sclerae EOM intact bilaterally ENMT: external ear and nose normal, oropharynx normal Neck: normal visual inspection Respiratory: normal respiratory effort, lungs clear to auscultation Cardiovascular: Rate/Rhythm: regular rate and regular rhythm Gastrointestinal (Abdomen): normal bowel sounds, soft, nontender, no hepatosplenomegaly Musculoskeletal: Head/Neck/Chest: normocephalic and head atraumatic Neurologic: PERRL, EOMI, accommodation nl, no face palsy, no dysarthria CN's II-XI intact bilaterally Psychiatric: A+Ox3, euthymic affect Principal Diagnosis substernal chest pain, dyslipidemia, paroxysmal atrial fibrillation, supratherapuetic INR (resolved and discharge INR is 2.4 on 06/17/19) hypothyroidism, hypoparathyroidism Discharge Exam Constitutional + obese and comfortable Eyes PERRL, conjunctivae normal, anicteric sclerae EOM intact bilaterally ENMT external ear and nose normal, oropharynx normal Neck normal visual inspection Respiratory normal respiratory effort, lungs clear to auscultation Cardiovascular Rate/Rhythm: regular rate and regular rhythm Gastrointestinal (Abdomen) normal bowel sounds, soft, nontender, no hepatosplenomegaly Musculoskeletal Head/Neck/Chest: normocephalic and head atraumatic Neurologic PERRL, EOMI, accommodation nl, no face palsy, no dysarthria CN's II-XI intact bilaterally Psychiatric A+Ox3, euthymic affect Discharge Data Allergies Allergy/AdvReac Type Severity Reaction Status Date / Time prednisone Allergy Severe GI Verified 06/15/19 11:33 PAIN-LED TO PANCREATITIS Iodinated Contrast Media Allergy Unknown HIVES-ANAPH Verified 06/15/19 11:33 YLACTIC losartan Allergy Unknown NAUSEA AND Verified 06/15/19 11:33 VOMITING ranitidine Allergy Unknown NAUSEA AND Verified 06/15/19 11:33 VOMITING,ACHY ether Allergy Unknown Verified 06/15/19 11:33 rosiglitazone AdvReac Severe BLOOD CLOTS Verified 06/15/19 11:33 atorvastatin [From Lipitor] AdvReac Muscle Pain Verified 06/15/19 11:33 ezetimibe [From Zetia] AdvReac Muscle Pain Verified 06/15/19 11:33 lisinopril AdvReac Cough Verified 06/15/19 11:33 rosuvastatin [From Crestor] AdvReac Muscle Pain Verified 06/15/19 11:33 Consultations 06/15/19 11:45 ED Decision to Admit Stat 06/15/19 12:06 Consult Cardiology Routine 06/16/19 09:33 Consult Psychiatry Routine Ordered Studies 06/15/19 12:31 US venous doppler [facility] Stat Hospital Course (1) Substernal chest pain: -78 year old female with cardiac history who had last hospital admission in January 2019 for atrial fibrillation and rapid ventricular response/non-ST segment elevation microinfarction and reported that since that time she has been generally chest pain free. However, she began to have midsternal chest pains that are recurrent since Sunday06/13/19 that is not sufficiently received by Ranexa (ranolazine) or Nitro. Frequency and severity of the chest pains were concerning to the patient. She noted that pains appeared to be progressed even with minor exertion or body movements. patient reported taking nitro at home and nitro also given by EMS. nitro patch placed on chest by ED physician. patient currently chest pain free in the ED for now upon initial exam by hospitalist. -Allergy history pertinent for muscle aches to statin so patient gets Repatha (evolocumab) injections as outpatient for lipid control. also that in the past when she had cardiac cath in [place], the patient was told that she had anaphylaxis despite pre-medication to the dye contrast. -continue isosorbide mononitrate 60 mg BID -home dose Coreg CR is nonformulary and will place on carvedilol 12.5 mg BID for now as this was previously recommended by cardiology in January 2019 admission -continue Ranexa (ranolazine) 06/15/19: patient evaluated by cardiology Dr. Doyle and reviewed echocardiogram on admission as Echocardiogram with no acute changes (EF 60 to 65%; subtle hypokinesis of the inferior and posterior wall at the base with otherwise normal wall motions and preserved EF not changed from prior 02/15/19 ) increase Ranexa to thousand milligrams twice per day; increase amlodipine to 2.5 mg twice per day with room for further upward titration 06/16/19: Patient reported chest pain around 4:30 AM and this was also reported by night time doctor to day time hospitalist. the subsequent troponin from 5:30 AM is negative. Patient did get nitro from night time doctor. Patient was able to eat the breakfast this AM without events. Patient seen in AM by daytime hospitalist. The breakfast tray empty. Discussed with patient that current workup not finding evidence of acute coronary syndrome but that symptoms may be from angina. She also expressed of being against cardiac cath interventions bec ause of history of reported anaphylaxis in the past from cardiac cath. During the interview and after physical exam, patient again reported chest pain and symptom of running down left arm. She started to doing some quick breathing and blowing air out of her mouth as if trying to alleviate the chest discomfort. Patient was given morphine and nitro / morphine and EKG performed which did not show any lead changes compared to from 06/15/19 day time. troponin negative. patient had trial of nitro, ativan -06/17/19: Patient did well overnight and no discomforts. She did report chest discomfort when in bathroom this AM. This resolved. Patient continues to be breathing on room. No plans by cardiology for any invasive testing. Patient was seen by psychiatry as there was some suggestion by cardiology whether some chest discomforts are anxiety related. Patient has been counseled by psychiatry service. Hospitalist have discussed with patient that it is unlikely that all chest discomforts should be attributed to anxiety alone. Discussed at length of recent changes to medication regimen for angina and blood pressure. Also of patient's history of gastritis for which she was found to have mild gastritis by upper endoscopy in 11/2017 and that patient to take increased omeprazole at home in case any contribution by gastritis (patient not interested in repeat upper endoscopy in hospital) and she has thoughts about outpatient gastroenterology follow up. Patient requesting to be discharged to home To summarize: Initial impression of chest pain from angina or cardiac in origin. however troponins negative x 6 in total and echocardiogram with no acute changes (EF 60 to 65%; subtle hypokinesis of the inferior and posterior wall at the base with otherwise normal wall motions and preserved EF not changed from prior 02/15/19 ) discharge medications sent electronically to: [facility] [address] [place] [address] [place] [id number] for -Sublingual tablet 0.4 mg every 5 minutes up to 3 doses have been prescribed -amlodipine 2.5 mg twice a day as initiated during the hospital stay by cardiology service to alleviate frequency of chest pains -ranolazine (Ranexa) 1000 mg twice a day as initiated by cardiology service which is an increase from patient's original 500 mg twice a day to alleviate frequency of chest pains -omeprazole 40 mg daily on discharge which is an increase from omeprazole 20 mg daily at home in case there is some component of gastritis to chest discomforts (trial of ativan was started on this hospital stay in case of some component of anxiety contributory to chest pains, but inpatient psychiatry recommending further evaluation with therapists in the [place] area and referral information given to the patient and before any longer trial of anxiety medications) Patient should follow up with primary care doctor and have re-assessment including INR labs check and blood pressure check. discharge day INR is 2.4 on 06/17/19. patient can continue home coumadin 2.5 mg daily for now Primary care doctor 06/26/2019 2:00 PM Provider Shonda Oseguera MD Department Internal Medicine [facility] 07/03/2019 10:00 AM Provider Mark Bateman DO Department Neurology [facility] 07/07/2019 9:00 AM Provider Shonda Oseguera MD Department Internal Medicine [facility] 07/07/2019 10:00 AM Provider [facility] Department Pharmacy, [facility] 07/16/2019 11:10 AM Provider Tian Specialty Medication, [facility] Department [facility] 07/29/2019 9:00 AM Provider [place] [facility] Department Cardiology [facility] 08/22/2019 11:00 AM Provider Lenora Becker MD Department Dermatology [facility] 09/05/2019 2:20 PM Provider Tomas Leo MD Department Nephrology, [facility] 11/07/2019 10:00 AM Provider Jacob Arrington MD Department Endocrinology, [place] 11/07/2019 11:00 AM Provider Ana Cristina Marcum MD Department Endocrinology, [place] Dyslipidemia -lipid panel performed on 06/15/19 was done as non-fasting test -Allergy history pertinent for muscle aches to statin so patient gets Repatha (evolocumab) injections as outpatient Presence of Pacemaker Paroxysmal atrial fibrillation -last hospital admission in January 2019 for atrial fibrillation and rapid ventricular response -telemetry monitoring of heart rates have been paced and in the 60s Supratherapeutic INR, on admission DVT prophylaxis -admission INR is 3.6 on 06/15/19, would not start other systemic an ticoagulation at this time, hold coumadin for now as INR is supratherapeutic, INR is still 3.6 on 06/16/19 -goal INR on coumadin is 2 to 3 -Patient should follow up with primary care doctor and have re-assessment including INR labs check and blood pressure check. discharge day INR is 2.4 on 06/17/19. patient can continue home coumadin 2.5 mg daily for now -History of deep vein thrombosis/pulmonary embolism in the past; check ultrasound of lower extremities to with no deep vein thrombosis (2) Hypothyroidism: -TSH of 2.98 -will hold home dose levothyroxine for now during chest pain work up (3) Hyperparathyroidism: -PTH is elevated but admission calcium of 9.8 within normal parameters, ionized calcium 1.28 is within normal parameters -25-OH vitamin D is 22.4 -discussed with patient that her outpatient telemedicine encounter recently does not strictly recommending any urgent paraythyroidectomy Full Code family contact: son [phone] Discharge Diagnosis: substernal chest pain, dyslipidemia, paroxysmal atrial fibrillation, supratherapuetic INR (resolved and discharge INR is 2.4 on 06/17/19) hypothyroidism, hypoparathyroidism Total Time Total Time Spent Total Time Spent (In Minutes): 40 minutes Total Time Includes: Examination of the Patient, Discharge Planning, Medication Reconciliation and Communication With Other Providers Discharge Plan Discharge Items Patient Disposition: Home - Self-Care Reason For Visit: CHEST PAIN Discharge Diagnosis: substernal chest pain, dyslipidemia, paroxysmal atrial fibrillation, supratherapuetic INR (resolved and discharge INR is 2.4 on 06/17/19) hypothyroidism, hypoparathyroidism Condition on Discharge: Good Activity: Resume your previous activity Non-emergency contact: Primary Care Provider and Specialist Call non-emergency contact if: you have any medication questions Follow-up/Referrals: Shonda Fields MD [Primary Care Provider] - Diet: Heart Healthy and Low Sodium (2gm) Addtl Attending Provider Instructions: To summarize Initial impression of chest pain from angina or cardiac in origin. however troponins negative x 6 in total and echocardiogram with no acute changes (EF 60 to 65%; subtle hypokinesis of the inferior and posterior wall at the base with otherwise normal wall motions and preserved EF not changed from prior 02/15/19 ) discharge medications sent electronically to: [facility] [address] [place] [address] [place], [place] [id number] for -Sublingual tablet 0.4 mg every 5 minutes up to 3 doses have been prescribed -amlodipine 2.5 mg twice a day as initiated during the hospital stay by cardiology service to alleviate frequency of chest pains -ranolazine (Ranexa) 1000 mg twice a day as initiated by cardiology service which is an increase from patient's original 500 mg twice a day to alleviate frequency of chest pains -omeprazole 40 mg daily on discharge which is an increase from omeprazole 20 mg daily at home in case there is some component of gastritis to chest discomforts (trial of ativan was started on this hospital stay in case of some component of anxiety contributory to chest pains, but inpatient psychiatry recommending further evaluation with therapists in the [place] area and referral information given to the patient and before any longer trial of anxiety medications) Patient should follow up with primary care doctor and have re-assessment including INR labs check and blood pressure check. discharge day INR is 2.4 on 06/17/19. patient can continue home coumadin 2.5 mg daily for now Primary care doctor 06/26/2019 2:00 PM Provider Shonda Oseguera MD Department Internal Medicine [facility] 07/03/2019 10:00 AM Provider Mark Bateman DO Department Neurology [facility] 07/07/2019 9:00 AM Provider Shonda Oseguera MD Department Internal Medicine [facility] 07/07/2019 10:00 AM Provider [facility] Department Pharmacy, [facility] 07/16/2019 11:10 AM Provider Tian Specialty Medication, [facility] Department [facility] 07/29/2019 9:00 AM Provider [place] [facility] Department Cardiology [facility] 08/22/2019 11:00 AM Provider Lenora Becker MD Department Dermatology [facility] 09/05/2019 2:20 PM Provider Tomas Leo MD Department Nephrology, [facility] 11/07/2019 10:00 AM Provider [facility] 11:00 AM Provider Ana Cristina Marcum MD Department Endocrinology, [place] Pending Studies at Discharge: No Stand-Alone Forms: Call Back Authorization, [facility], Smoking Cessation Medications and DC Order Prescriptions: New amlodipine 2.5 mg tablet 2.5 mg PO BID 30 Days Qty: 60 RF: 0 ranolazine [Ranexa] 500 mg Tablet Extended Release 12 Hr 1,000 mg PO BID 30 Days Qty: 120 RF: 0 acetaminophen 325 mg tablet 325 mg PO Q6H PRN (Reason: fever or pain) 5 Days Qty: 20 RF: 0 nitroglycerin 0.4 mg tablet, sublingual 0.4 mg sublingual Q5M PRN (Reason: chest pain) 30 Days Qty: 30 RF: 0 omeprazole 40 mg capsule,delayed release(DR/EC) 40 mg PO DAILY 30 Days Qty: 30 RF: 0 Continued aspirin 81 mg Tablet,Delayed Release (Dr/Ec) 1 tab PO QPM RF: 0 isosorbide mononitrate 60 mg Tablet Extended Release 24 Hr 60 mg PO BID RF: 0 levothyroxine 50 mcg Tablet 50 mcg PO QAM RF: 0 nitroglycerin 0.4 mg Tablet, Sublingual 1 tab Sublingual UD PRN (Reason: Chest Pain) RF: 0 warfarin [Coumadin] 5 mg tablet 2.5 mg PO DAILY RF: 0 carvedilol phosphate [Coreg CR] 40 mg capsule, ER multiphase 24 hr 40 mg PO QAM RF: 0 sucralfate 1 gram tablet 1,000 mg PO DAILY RF: 0 carvedilol phosphate 20 mg Capsule, Er Multiphase 24 Hr 20 mg PO HS RF: 0 Repatha SureClick 140 mg/mL pen injector 140 mg subcut UD RF: 0 Discontinued ranolazine 500 mg tablet extended release 12 hr 500 mg PO BID RF: 0 omeprazole 20 mg capsule,delayed release(DR/EC) 20 mg PO DAILY RF: 0 amlodipine [Norvasc] 2.5 mg tablet 2.5 mg PO DAILY RF: 0 acetaminophen [Tylenol Extra Strength] 500 mg Tablet 1,000 mg PO Q6H PRN (Reason: Pain) RF: 0 potassium chloride [Klor-Con M20] 20 mEq tablet,ER particles/crystals 20 meq PO MOWEFR RF: 0 Discharge Orders: Discharge Order (Routine); Ordered 06/17/19 Ordered By: Kevin Ruiz Admission Data Admit Date/Time: 06/15/19 14:44 Attending Provider: Kevin Ruiz Admit Provider: Kevin Ruiz Primary Care Provider: Shonda Fields Other Providers: Kevin Ruiz ; Wai Doyle ; Vinita Blue
[2019-06-18] MEDS ORDERED: WARFARIN SOD 2.5 MG TAB PO SCH (16:00)
== END 2019-06-17 14:42 | disposition home or self-care (01) | DRG 313 ==
LOC: ED 10:35 → 2S 14:44

== ENCOUNTER 2020-06-18 14:02 | Inpatient (IN) ==
--- NOTE | 2020-06-18 14:04 | Emergency Department Note ---
Impression & Plan Non-ST elevation [place] (NSTEMI), CAD (coronary artery disease), Acute electrocardiography changes ED Provider Note NAME: PENNIE BARRAZA AGE: 79 SEX: F : 1940 ARRIVES VIA: Ambulance INFORMANT: Patient, ED PROVIDER(S): Wood Oliveira MD Chief Complaint: Chest pain HPI: Patient was seen due to concern for chest pain. Patient states that she has chronic chest pains but it is been worsening every time with exertion. The patient states that sometimes when she stops to rest it does improve but her concern is that she was using her nitro more more frequently. The patient describes it as a centralized pressure with radiation down the bilateral arms. The patient denies any nausea or vomiting. Patient denies diaphoresis. Patient states nothing different with her prior cardiac related chest pain is that it was more left-sided. Patient denies infectious symptoms including cough fevers, chills, loss of taste or smell. The patient denies any abdominal pain. Patient denies any bowel or urinary complaints. The patient does have some chronic left greater than right lower extremity edema secondary to her vein graft but denies any change. The patient does take Coumadin for history of A. fib. States she has been compliant the medications and no recent changes. The patient did receive nitroglycerin in the clinic which did improve her pain. The patient was seen in the outpatient setting and referred here due to concern for EKG changes and atypical chest pain. ROS: See HPI for pertinent positives and negatives. A total of 10 systems were reviewed and otherwise negative. Past medical history: See below Surgical history: See below Social history: See below Physical Exam: GENERAL: Wearing a mask. NAD, non-toxic. EYE EXAM: Normal conjunctiva. PERRL, no anisocoria and EOM's grossly intact w/o pain. NECK: Supple, no nuchal rigidity, no adenopathy, non-tender. No signs of meningismus. LUNGS: Clear to auscultation. Normal chest wall mechanics. HEART: NSR, no MRG. ABDOMEN: Abdomen soft, non-tender, normo-active bowel sounds, no masses, no rebound or guarding. BACK: No CVA TTP. SKIN: No rashes and no bruising. UPPER EXTREMITIES: Upper extremities are grossly normal. LOWER EXTREMITIES: Grossly normal, slight left greater than right lower extremity edema with well-healed vein graft scars. Negative Homans' sign bilaterally. NEURO EXAM: A&O x3, cranial nerves II-XII grossly intact, normal speech, moves all 4 extremities on command w/o issue. Differential diagnoses: Cardiac ischemia, aortic dissection, pulmonary embolism, pneumothorax, pneumonia, pericarditis, myocarditis, esophageal rupture, GERD, cholecystitis, pancreatitis, musculoskeletal, as well as other pathologies. Course: Patient was seen and evaluated the bedside. Full history physical exam was performed. EKG: Indication: Chest pain Atrial paced rhythm, rate 81, prolonged AR, normal QRS, normal axis, T wave inversions inferiorly. No obvious ST changes. Patient's T wave versions are changed from comparison [facility] 08, 2020. Imaging Studies: Radiology results as stated below per my review in the radiologist's interpretation: XR chest 1V portable CLINICAL HISTORY: Atypical chest pain COMPARISON STUDY: 06/15/2019 FINDINGS: The heart is mildly enlarged. There are postsurgical changes of a midline sternotomy. There is a left subclavian dual-chamber central venous pacemaker. There is no failure. There is no focal pulmonary consolidation. There is minor chronic interstitial thickening with a basilar predominance.[ IMPRESSION: No active disease in the chest. ACT 112: Negative or not required by law. Electronically signed by: Danilo Bautista M.D. 06/18/2020 2:30 PM Dictated: 06/18/20 1430 Transcribed: 06/18/20 1430 Cardiac monitoring: An order was placed for continuous cardiac monitoring. The monitor shows a rate of 77 with paced rhythm. MDM: Patient was seen due to concerns for chest pain. The patient is asymptomatic at the bedside. Blood work was obtained along with an EKG troponin chest x-ray. Patient's chest x-ray is negative. Patient denies any infectious symptoms. Patient does have new T wave inversions inferiorly. Patient does have a positive troponin. I did speak with the on-call hospitalist and the patient was admitted to the medicine service. The patient is therapeutic with her INR 2.5. Patient has normal white count H&H and platelet count. Kidney function is unremarkable. Heparin deferred at this time as the patient is anticoagulated on Coumadin therapeutic at 2.5 Hardyk received a full dose aspirin and is asymptomatic at the bedside. Critical Care: I have personally spent 45 minutes of critical care time in direct management of this patient. This includes bedside care, interpretation of diagnostic studies, and testing, discussion with consultants, patient, and family members, and other require inpatient management activities. This 45 minutes is in excess of all separately billable procedures. Past Med/Surg History Medical History CAD (coronary artery disease) CABG x5 in 2005 in [place] with BROWN to LAD, SVG to diagonal, SVG to OM, SVG to RPDA, and SVG to the distal RCA, PCI x3 Carotid artery stenosis LICA/FITZ <50% stenosis, Right subclavian stenosis vs. occlusion with abnormal flow noted in vertebral artery per 08/2019 carotid duplex Chronic back pain DVT (deep venous thrombosis) Dyslipidemia GERD (gastroesophageal reflux disease) HTN (hypertension) Hypothyroidism IPMN (intraductal papillary mucinous neoplasm) Osteoarthritis Pacemaker 08/03 [facility], last pacer check 01/2020 Paroxysmal atrial fibrillation Pulmonary embolism remote years ago Surgical History H/O arthroscopy of knee H/O arthroscopy of shoulder H/O parathyroidectomy History of hysterectomy Hx of adenoidectomy Hx of appendectomy Hx of cataract surgery Hx of cholecystectomy Hx of hemorrhoidectomy Hx of tonsillectomy Pacemaker placement S/P BSO (bilateral salpingo-oophorectomy) S/P CABG x 3 CABG x5 in 2005 in [place] with BROWN to LAD, SVG to diagonal, SVG to OM, SVG to RPDA, and SVG to the distal RCA Family History Mother Stroke Social History Smoking Status: Never smoker Second Hand Exposure: No; Hx Alcohol Use: No Hx Substance Use: No Preferred Language: Syriac Communication Ability: Effective Cement Rubber Required: No Beliefs That Will Affect Care: None Current Living Situation: Spouse and Family Current Living Situation Comment: SON LIVES WITH PT Feels Safe at Home: Yes Assistive Devices: None Allergies Allergies Allergy/AdvReac Type Severity Reaction Status Date / Time Iodinated Contrast Media Allergy Unknown Hives, Verified 06/18/20 15:33 anaphylaxis ether Allergy Unknown Verified 06/18/20 15:33 prednisone AdvReac Severe GI pain > Verified 06/18/20 15:33 pancreatitis rosiglitazone AdvReac Severe Blood clots Verified 06/18/20 15:33 losartan AdvReac Unknown N/V Verified 06/18/20 15:33 ranitidine AdvReac Unknown N/V, Verified 06/18/20 15:33 achiness atorvastatin [From Lipitor] AdvReac Muscle Pain Verified 06/18/20 15:33 ezetimibe [From Zetia] AdvReac Muscle Pain Verified 06/18/20 15:33 lisinopril AdvReac Cough Verified 06/18/20 15:33 rosuvastatin [From Crestor] AdvReac Muscle Pain Verified 06/18/20 15:33 Home Meds Home Medications Medication Instructions Recorded Confirmed aspirin 1 tab PO QPM 03/19/18 06/18/20 isosorbide mononitrate See Rx Instructions .ROUTE .COMPLEX 03/19/18 06/18/20 levothyroxine 50 mcg PO QAM 03/19/18 06/18/20 nitroglycerin 1 tab SUBLINGUAL UD PRN 03/19/18 06/18/20 carvedilol phosphate [Coreg CR] 40 mg PO QAM 11/02/18 06/18/20 sucralfate 1,000 mg PO QAM 02/14/19 06/18/20 carvedilol phosphate 20 mg PO HS 05/01/19 06/18/20 ranolazine [Ranexa] 1,000 mg PO BID 04/20/20 06/18/20 warfarin 2.5 mg PO SUMOTUWETHSA 04/20/20 06/18/20 omeprazole 20 mg PO DAILY 05/07/20 06/18/20 alprazolam 0.25 mg PO TID PRN 06/18/20 06/18/20 cholecalciferol (vitamin D3) 2,000 unit PO BID 06/18/20 06/18/20 [Vitamin D3] dicyclomine 10 mg PO QID PRN 06/18/20 06/18/20 sertraline 25 mg PO QAM 06/18/20 06/18/20 Results & Data (ED) Vital Signs Vital Signs - 24 hr 06/18/20 14:13 06/18/20 14:20 06/18/20 14:30 Temperature 36.8 C Temperature Source Oral Pulse Rate 77 62 Pulse Rate from SpO2 Sensor 62 Respiratory Rate 18 16 Blood Pressure 147/102 H 147/89 H Blood Pressure Mean 117 99 Pulse Oximetry 94 94 90 Oxygen Delivery Method Room Air Room Air Sepsis Recent Fever Within 48 Hours No Sepsis New/Unexplained Change in Mental Status N/A Sepsis Action Taken by Nursing No Action Required 06/18/20 14:43 06/18/20 14:45 06/18/20 15:00 Temperature Temperature Source Pulse Rate 61 60 71 Pulse Rate from SpO2 Sensor 61 60 63 Respiratory Rate 13 16 13 Blood Pressure 142/93 H Blood Pressure Mean 109 Pulse Oximetry 90 91 93 Oxygen Delivery Method Sepsis Recent Fever Within 48 Hours Sepsis New/Unexplained Change in Mental Status Sepsis Action Taken by Nursing 06/18/20 15:01 06/18/20 15:15 06/18/20 15:30 Temperature Temperature Source Pulse Rate 74 60 61 Pulse Rate from SpO2 Sensor 74 61 63 Respiratory Rate 15 18 16 Blood Pressure 152/93 H Blood Pressure Mean 104 Pulse Oximetry 92 91 90 Oxygen Delivery Method Sepsis Recent Fever Within 48 Hours Sepsis New/Unexplained Change in Mental Status Sepsis Action Taken by Nursing 06/18/20 15:31 06/18/20 15:45 06/18/20 16:00 Temperature Temperature Source Pulse Rate 66 62 72 Pulse Rate from SpO2 Sensor 66 63 72 Respiratory Rate 12 13 11 L Blood Pressure 162/101 H Blood Pressure Mean 125 Pulse Oximetry 91 91 92 Oxygen Delivery Method Sepsis Recent Fever Within 48 Hours Sepsis New/Unexplained Change in Mental Status Sepsis Action Taken by Intermediate Medications Current Medication List: was personally reviewed by me Laboratory Data Attestation: I reviewed the patient's lab results. Result diagrams: 06/18/20 14:10 06/18/20 14:10 Lab Results 06/18/20 06/18/20 06/18/20 Range/Units 14:10 14:10 14:10 WBC 5.33 (4.8-10.8) K/uL RBC 4.69 (4.2-5.4) M/uL Hgb 14.3 (12.0-16.0) g/dL Hct 43.7 (37-47) % MCV 93.2 (80-100) fL MCH 30.5 (25-34) pg MCHC 32.7 (32-36) g/dL RDW Std Deviation 48.7 H (36.4-46.3) fL RDW Coeff of Chelo 14.4 (11.5-14.5) % Plt Count 206 (130-400) K/uL MPV 12.6 H (7.4-10.4) fL Immature Gran % (Auto) 0.2 % Neut % (Auto) 58.5 % Lymph % (Auto) 25.7 % Catron % (Auto) 13.3 % Eos % (Auto) 1.7 % Baso % (Auto) 0.6 % Neut # (Auto) 3.12 (1.4-6.5) K/uL Lymph # (Auto) 1.37 (1.2-3.4) K/uL Catron # (Auto) 0.71 H (0.11-0.59) K/uL Eos # (Auto) 0.09 (0-0.5) K/uL Baso # (Auto) 0.03 (0-0.2) K/uL Immature Gran # (Auto) 0.01 (0.00-0.02) K/uL PT 25.5 H (9.0-12.0) Seconds INR 2.5 H (0.9-1.1) APTT 37.5 H (21.0-31.0) Seconds PTT Ratio 1.3 Sodium 139 (136-145) mmol/L Potassium 3.9 (3.5-5.1) mmol/L Chloride 105 (98-107) mmol/L Carbon Dioxide 29 (21-32) mmol/L Anion Gap 5.0 (3-11) BUN 19 H (7-18) mg/dl Creatinine 0.96 (0.6-1.2) mg/dl Est Cr Clr Drug Dosing 54.6 ml/min Est GFR ( Amer) 64.7 Est GFR (Non-Af Amer) 55.9 BUN/Creatinine Ratio 19.3 (10-20) Glucose 94 (70-99) mg/dl Calcium 9.0 (8.5-10.1) mg/dl Magnesium (1.8-2.4) mg/dl Total Bilirubin 0.7 (0.2-1) mg/dl AST 16 (15-37) U/L ALT 18 (12-78) U/L Alkaline Phosphatase 77 (45-117) U/L Troponin I 0.188 H* (0-0.045) ng/ml Total Protein 7.1 (6.4-8.2) gm/dl Albumin 3.6 (3.4-5.0) gm/dl Globulin 3.5 (2.5-4.0) gm/dl Albumin/Globulin Ratio 1.0 (0.9-2) Lipase 83 (73-393) U/L 12/18/20 Range/Units 14:10 WBC (4.8-10.8) K/uL RBC (4.2-5.4) M/uL Hgb (12.0-16.0) g/dL Hct (37-47) % MCV (80-100) fL MCH (25-34) pg MCHC (32-36) g/dL RDW Std Deviation (36.4-46.3) fL RDW Coeff of Chelo (11.5-14.5) % Plt Count (130-400) K/uL MPV (7.4-10.4) fL Immature Gran % (Auto) % Neut % (Auto) % Lymph % (Auto) % Catron % (Auto) % Eos % (Auto) % Baso % (Auto) % Neut # (Auto) (1.4-6.5) K/uL Lymph # (Auto) (1.2-3.4) K/uL Catron # (Auto) (0.11-0.59) K/uL Eos # (Auto) (0-0.5) K/uL Baso # (Auto) (0-0.2) K/uL Immature Gran # (Auto) (0.00-0.02) K/uL PT (9.0-12.0) Seconds INR (0.9-1.1) APTT (21.0-31.0) Seconds PTT Ratio Sodium (136-145) mmol/L Potassium (3.5-5.1) mmol/L Chloride (98-107) mmol/L Carbon Dioxide (21-32) mmol/L Anion Gap (3-11) BUN (7-18) mg/dl Creatinine (0.6-1.2) mg/dl Est Cr Clr Drug Dosing ml/min Est GFR ( Amer) Est GFR (Non-Af Amer) BUN/Creatinine Ratio (10-20) Glucose (70-99) mg/dl Calcium (8.5-10.1) mg/dl Magnesium 2.3 (1.8-2.4) mg/dl Total Bilirubin (0.2-1) mg/dl AST (15-37) U/L ALT (12-78) U/L Alkaline Phosphatase (45-117) U/L Troponin I (0-0.045) ng/ml Total Protein (6.4-8.2) gm/dl Albumin (3.4-5.0) gm/dl Globulin (2.5-4.0) gm/dl Albumin/Globulin Ratio (0.9-2) Lipase (73-393) U/L Discharge Plan Visit Data Chief Complaint: Chest Pain ED Provider: Wood Oliveira Discharge Problem: Non-ST elevation [place] (NSTEMI), CAD (coronary artery disease), Acute yisel ctrocardiography changes Forms Stand Alone Forms: [facility] [employer] Prescriptions Prescriptions: No Action aspirin 81 mg Tablet,Delayed Release (Dr/Ec) 1 tab PO QPM RF: 0 isosorbide mononitrate 60 mg Tablet Extended Release 24 Hr See Rx Instructions .ROUTE .COMPLEX RF: 0 levothyroxine 50 mcg Tablet 50 mcg PO QAM RF: 0 nitroglycerin 0.4 mg Tablet, Sublingual 1 tab Sublingual UD PRN (Reason: Chest Pain) RF: 0 carvedilol phosphate [Coreg CR] 40 mg capsule, ER multiphase 24 hr 40 mg PO QAM RF: 0 sucralfate 1 gram tablet 1,000 mg PO QAM RF: 0 carvedilol phosphate 20 mg Capsule, Er Multiphase 24 Hr 20 mg PO HS RF: 0 warfarin 2.5 mg Tablet 2.5 mg PO SUMOTUWETHSA RF: 0 ranolazine [Ranexa] 500 mg Tablet Extended Release 12 Hr 1,000 mg PO BID RF: 0 omeprazole 20 mg capsule,delayed release(DR/EC) 20 mg PO DAILY RF: 0 alprazolam 0.25 mg tablet 0.25 mg PO TID PRN (Reason: Anxiety) RF: 0 sertraline 25 mg tablet 25 mg PO QAM RF: 0 dicyclomine 10 mg Capsule 10 mg PO QID PRN (Reason: Indigestion) RF: 0 cholecalciferol (vitamin D3) [Vitamin D3] 50 mcg (2,000 unit) tablet 2,000 unit PO BID RF: 0 Discharge Problem: CAD (coronary artery disease) Qualifiers: Coronary Disease-Associated Artery/Lesion type: unspecified vessel or lesion type [place] vs. transplanted heart: [place] heart Associated angina: with unspecified angina Qualified Code(s): I25.119 - Atherosclerotic heart disease of [place] coronary artery with unspecified angina pectoris
[2020-06-18] MEDS ORDERED: NITROGLYCERIN SL 0.4 MG/TAB TAB SL PRN ×2 (14:16→19:37)
[2020-06-18 14:30] LABS: Basophils # (auto) 0.03 K/uL (0-0.2); Basophils % (auto) 0.6 %; Eosinophils # (auto) 0.09 K/uL (0-0.5); Eosinophils % (auto) 1.7 %; Hematocrit (blood only) 43.7 % (37-47); Hemoglobin 14.3 g/dL (12.0-16.0); Immature Granulocytes # (auto) 0.01 K/uL (0.00-0.02); Immature Granulocytes % (auto) 0.2 %; Lymphocytes # (auto) 1.37 K/uL (1.2-3.4); Lymphocytes % (auto) 25.7 %; Mean Corpuscular Hemoglobin 30.5 pg (25-34); Mean Corpuscular Hgb Conc 32.7 g/dL (32-36); Mean Corpuscular Volume 93.2 fL (80-100); Mean Platelet Volume 12.6 fL (7.4-10.4); Monocytes # (auto) 0.71 K/uL (0.11-0.59); Monocytes % (auto) 13.3 %; Neutrophils # (auto) 3.12 K/uL (1.4-6.5); Neutrophils % (auto) 58.5 %; Platelet Count 206 K/uL (130-400); RDW Coefficient of Variation 14.4 % (11.5-14.5); RDW Standard Deviation 48.7 fL (36.4-46.3); Red Blood Count 4.69 M/uL (4.2-5.4); White Blood Count 5.33 K/uL (4.8-10.8)
--- NOTE | 2020-06-18 14:32 | XRay Report ---
XR chest 1V portable CLINICAL HISTORY: Atypical chest pain COMPARISON STUDY: 06/15/2019 FINDINGS: The heart is mildly enlarged. There are postsurgical changes of a midline sternotomy. There is a left subclavian dual-chamber central venous pacemaker. There is no failure. There is no focal p ulmonary consolidation. There is minor chronic interstitial thickening with a basilar predominance.[ IMPRESSION: No active disease in the chest. ACT 112: Negative or not required by law. Electronically signed by: Danilo Bautista M.D. 06/18/2020 2:30 PM
[2020-06-18 14:40] LABS: INR 2.5 (0.9-1.1); Partial Thromboplastin Ratio 1.3; Partial Thromboplastin Time 37.5 Seconds (21.0-31.0); Prothrombin Time 25.5 Seconds (9.0-12.0)
[2020-06-18 14:46] LABS: Albumin Level 3.6 gm/dl (3.4-5.0); BUN Creatinine Ratio 19.3 (10-20); Creatinine Clr Calc Pharmacy 54.6 ml/min; Est GFR (African American) 64.7; Est GFR (Non-African American) 55.9; Potassium 3.9 mmol/L (3.5-5.1)
[2020-06-18 15:12] LABS: Bilirubin,Total 0.7 mg/dl (0.2-1); Globulin 3.5 gm/dl (2.5-4.0); Total Protein 7.1 gm/dl (6.4-8.2); Troponin I 0.188 ng/ml (0-0.045)
[2020-06-18] MEDS ORDERED: POTASSIUM CHLORIDE CRTAB 20 MEQ TABCR PO STA (16:19)
--- NOTE | 2020-06-18 17:08 | History & Physical Report ---
Date of Service June 18, 2020 Assessment & Plan (1) Non-ST elevation [place] (NSTEMI): (2) CAD (coronary artery disease): This is a 79-year-old female who has significant PMH of CABG x5 (in 2005 in [place] with BROWN to LAD, SVG to diagonal, SVG to OM, SVG to RPDA, and SVG to the distal RCA), hx of diagnostic cardiac cath 2010 vein grafts to RPDA and distal RCA occluded with significant contrast reaction resulting in profound shock requiring emergency support and mechanical ventilation, hx of dual chamber pacer 2011 with last interrogation 01/2020, PAF anticoagulated on warfarin, history of DVT/PE on warfarin, HTN, HLD, hypothyroidism, hyperparathyroidism status post parathyroidectomy presents to ED secondary to worsening chest pain for the past 2 to 3 weeks requiring 2-3 nitroglycerin daily. Pt with CAD and chronic angina managed with medical therapy. Now with worsening CP, takes longer to resolve with ntg, and now present with minimal exertion. She has inferior ecg changes new t wave inversions and elevated troponin 0.188 Last cath 2010 which was complicated by severe anaphylactic shock requiring mechanical ventilation. Admit to PCU cycle troponin, ecg obtain echocardiogram consult cardiology continue ASA, imdur, ranexa, coreg, wafarin intolerant to statin/SHANIA/ARB continue warfarin - INR therapeutic prn NTG (3) Atrial fibrillation: continue coreg, pacemaker continue warfarin, 2.5mg every day, except fri per epic has mostly been in therapeutic range, per INRS (4) HTN (hypertension): BP elevated in ED, likely situational continue coreg, imdur, ranexa continue to monitor closely - will be due for coreg and ranexa this evening (5) Dyslipidemia: intolerant to statin heart healthy diet (6) Pacemaker: last interrogation 01/2020, missed recent interrogation will interrogate pacer, pt reports palpations at HS (7) CKD (chronic kidney disease) stage 3, GFR 30-59 ml/min: baseline cr 1.0 bun/cr 19 and 0.96 monitor (8) DVT prophylaxis: warfarin hx of DVT/PE Disposition: admit to PCU Follow up: PCP Dr. Joshua Oseguera upon discharge Pt was seen and examined in collaboration with Dr. Barth, please see addendum History of Present Illness Chief Complaint: Cp with exertion x 2-3 weeks, worsening and requiring 2-3 NTG daily. Primary Care Provider: Shonda Oseguera MD This is a 79-year-old female who has significant PMH of CABG x5 (in 2005 in [place] with BROWN to LAD, SVG to diagonal, SVG to OM, SVG to RPDA, and SVG to the distal RCA), hx of diagnostic cardiac cath 2010 vein grafts to RPDA and distal RCA occluded with significant contrast reaction resulting in profound shock requiring emergency support and mechanical ventilation, hx of dual chamber pacer 2011 with last interrogation 01/2020, PAF anticoagulated on warfarin, history of DVT/PE on warfarin, HTN, HLD, hypothyroidism, hyperparathyroidism status post parathyroidectomy presents to ED secondary to worsening chest pain for the past 2 to 3 weeks requiring 2-3 nitroglycerin daily. She states ever since her last cardiac cath in 2010 she has experienced chronic chest pain. She follows closely with [facility] cardiology who has managed her mostly from medical standpoint secondary to profound contrast allergy. She noted significant relief after the addition of Ranexa to her regimen and some benefit from Imdur as well. She would treat her chronic chest pain with periodic nitroglycerin; however over the past 2 to 3 weeks she noticed her exertional chest pain has been worsening, becoming more frequent, been present with less exertion, and she has been taking 2-3 nitro daily. Chest pain has been a little different as well as it is precordial and radiates down to both arms. If she sits down soon enough it will improve with rest; however otherwise it requires nitro. It has been taking nitro longer to relieve chest pain as well. She states she has been feeling palpitations at night when she is laying down feeling like she is going into A. fib. She also has noticed chest pain when lying down as well, but otherwise denies any other chest pain with rest. She denies any fever, chills, sweats, lightheadedness, dizziness, syncope, shortness of breath, orthopnea, PND, cough, hemoptysis, nausea, vomiting, abdominal pain, change in bowel or urinary habits. She lives at home with her who has dementia as well as her daughter most recently moved in. She was seen and evaluated in clinic today by Dr. Romero and was referred to ED 2/2 to ecg changes and worsening CP. In ED patient remained hemodynamically stable and while at rest was chest pain- free. She did receive full dose aspirin in route. She does have new EKG changes inferiorly and a mildly elevated troponin at 0.188. Her INR is therapeutic. Her CBC and CMP generally unremarkable. Chest x-ray negative for acute abnormality. Allergies Allergy/AdvReac Type Severity Reaction Status Date / Time Iodinated Contrast Media Allergy Unknown Hives, Verified 06/18/20 15:33 anaphylaxis ether Allergy Unknown Verified 06/18/20 15:33 prednisone AdvReac Severe GI pain > Verified 06/18/20 15:33 pancreatitis rosiglitazone AdvReac Severe Blood clots Verified 06/18/20 15:33 losartan AdvReac Unknown N/V Verified 06/18/20 15:33 ranitidine AdvReac Unknown N/V, Verified 06/18/20 15:33 achiness atorvastatin [From Lipitor] AdvReac Muscle Pain Verified 06/18/20 15:33 ezetimibe [From Zetia] AdvReac Muscle Pain Verified 06/18/20 15:33 lisinopril AdvReac Cough Verified 06/18/20 15:33 rosuvastatin [From Crestor] AdvReac Muscle Pain Verified 06/18/20 15:33 Home Medications Medication Instructions Recorded Confirmed Type aspirin 1 tab PO QPM 03/19/18 06/18/20 History isosorbide mononitrate See Rx Instructions .ROUTE .COMPLEX 03/19/18 06/18/20 History levothyroxine 50 mcg PO QAM 03/19/18 06/18/20 History nitroglycerin 1 tab SUBLINGUAL UD PRN 03/19/18 06/18/20 History carvedilol phosphate [Coreg CR] 40 mg PO QAM 11/02/18 06/18/20 History sucralfate 1,000 mg PO QAM 02/14/19 06/18/20 History carvedilol phosphate 20 mg PO HS 05/01/19 06/18/20 History ranolazine [Ranexa] 1,000 mg PO BID 04/20/20 06/18/20 History warfarin 2.5 mg PO SUMOTUWETHSA 04/20/20 06/18/20 History omeprazole 20 mg PO DAILY 05/07/20 06/18/20 History alprazolam 0.25 mg PO TID PRN 06/18/20 06/18/20 History cholecalciferol (vitamin D3) 2,000 unit PO BID 06/18/20 06/18/20 History [Vitamin D3] dicyclomine 10 mg PO QID PRN 06/18/20 06/18/20 History sertraline 25 mg PO QAM 06/18/20 06/18/20 History Past Med/Surg History Medical History CAD (coronary artery disease) CABG x5 in 2005 in [place] with BROWN to LAD, SVG to diagonal, SVG to OM, SVG to RPDA, and SVG to the distal RCA, PCI x3 Carotid artery stenosis LICA/FITZ <50% stenosis, Right subclavian stenosis vs. occlusion with a bnormal flow noted in vertebral artery per 08/2019 carotid duplex Chronic back pain DVT (deep venous thrombosis) Dyslipidemia GERD (gastroesophageal reflux disease) HTN (hypertension) Hypothyroidism IPMN (intraductal papillary mucinous neoplasm) Osteoarthritis Pacemaker 08/03 [facility], last pacer check 01/2020 Paroxysmal atrial fibrillation Pulmonary embolism remote years ago Surgical History H/O arthroscopy of knee H/O arthroscopy of shoulder H/O parathyroidectomy History of hysterectomy Hx of adenoidectomy Hx of appendectomy Hx of cataract surgery Hx of cholecystectomy Hx of hemorrhoidectomy Hx of tonsillectomy Pacemaker placement S/P BSO (bilateral salpingo-oophorectomy) S/P CABG x 3 CABG x5 in 2005 in [place] with BROWN to LAD, SVG to diagonal, SVG to OM, SVG to RPDA, and SVG to the distal RCA Family History Mother Stroke Social History (Updated 06/18/20 @ 17:12 by Sondra Gutierrez PA-C) Smoking Status: Never smoker Second Hand Exposure: No; Hx Alcohol Use: No Hx Substance Use: No Preferred Language: Mauritian Communication Ability: Effective Wing Coverer Required: No Beliefs That Will Affect Care: None marital status: Current Living Situation: Spouse and Family Current Living Situation Comment: Daughter LIVES WITH PT Other Information That Helps Us Care for You: No Feels Safe at Home: Yes Safety Concerns: Feels Safe At This Time Assistive Devices: Glasses Review of Systems Review of Systems: All systems reviewed & are unremarkable except as noted in HPI & below Physical Exam Physical Exam: Constitutional: WD/WN, F, vitals as above, NAD, sitting up in bed, pleasant, conversing easily Head: Normocephalic, Atraumatic Eyes: PERRL, conjunctivae normal, anicteric sclerae ENMT: external ear and nose normal, oropharynx normal Neck: trachea midline, no thyromegaly normal visual inspection Respiratory: normal respiratory effort, lungs clear to auscultation, no wheeze, rales, rhonchi. Normal insp/exp effort, no accessory muscle use Cardiovascular: RRR, no murmur, no edema Vessels: no JVD or carotid bruit Chest: normal inspection of chest, sternal scar noted Abdomen: normal bowel sounds, soft, nontender, no hepatosplenomegaly Musculoskeletal: no cyanosis or clubbing, extremities motor strength 5/5 Skin: no rashes, warm and dry normal turgor Neurologic: PERRL, EOMI, accommodation nl, no face palsy, no dysarthria CN's II-XI intact bilaterally and moves all extremities Psychiatric: A+Ox3, euthymic affect Lymphatic: no cervical or axillary lymphadenopathy : deferred Results & Data Results & Data ([facility]) Vital Signs (Past 12 Hours) Vital Signs Temp Pulse Resp BP Pulse Ox 06/18/20 16:00 72 11 L 162/101 H 92 06/18/20 15:45 62 13 91 06/18/20 15:31 66 12 91 06/18/20 15:30 61 16 152/93 H 90 06/18/20 15:15 60 18 91 06/18/20 15:01 74 15 92 06/18/20 15:00 71 13 142/93 H 93 06/18/20 14:45 60 16 91 06/18/20 14:43 61 13 90 06/18/20 14:30 62 16 147/89 H 90 06/18/20 14:20 94 06/18/20 14:13 36.8 C 77 18 147/102 H 94 Laboratory Results Short CBC 06/18/20 06/18/20 Range/Units 14:10 14:10 WBC 5.33 (4.8-10.8) K/uL Hgb 14.3 (12.0-16.0) g/dL Hct 43.7 (37-47) % Plt Count 206 (130-400) K/uL Troponin I 0.188 H* (0-0.045) ng/ml BMP 06/18/20 14:10 Sodium 139 Potassium 3.9 Chloride 105 Carbon Dioxide 29 BUN 19 H Creatinine 0.96 Glucose 94 Calcium 9.0 Cardiac Enzymes 06/18/20 Range/Units 14:10 Troponin I 0.188 H* (0-0.045) ng/ml Liver Function 06/18/20 Range/Units 14:10 Total Bilirubin 0.7 (0.2-1) mg/dl AST 16 (15-37) U/L ALT 18 (12-78) U/L Alkaline Phosphatase 77 (45-117) U/L Albumin 3.6 (3.4-5.0) gm/dl Diagnostic Findings CXR: FINDINGS: The heart is mildly enlarged. There are postsurgical changes of a midline sternotomy. There is a left subclavian dual-chamber central venous pacemaker. There is no failure. There is no focal pulmonary consolidation. There is minor chronic interstitial thickening with a basilar predominance. IMPRESSION: No active disease in the chest. ECG Rate (beats per minute): 81 Findings: + T-wave inversion (inferior) and + paced rhythm Comparison ECG Date: from (06/16/19) Change: the following changes noted Additional Comments: new t wave inversion III, AVF Code Status & VTE Plan Code Status Full Code VTE Prophylaxis Plan VTE Prophylaxis will be ordered: Yes Reason for no VTE drug order: Contraindicated (on warfarin, INR 2.5) Supervising Physician Co-Signing Physician Notes Pt was seen and examined. Agreed with Sondra NEWTON exam, assessment and plan. 79-year-old female with PMH of CABG x5, hx of dual chamber pacer 2011 with last interrogation 01/2020, PAF anticoagulated on warfarin, history of DVT/PE, HTN, HLD, hypothyroidism, hyperparathyroidism status post parathyroidectomy presents to ED with chest pain. Pt said that she has been having intermittent chest pain with exertion. She describes chest pain as squeezing type, radiating to both arms. She said that lately chest pain has been occurred more often. She said that she has been taking more nitro for the chest pain and does take longer to work. Currently she said that she does not have any chest pain. She denies any fever, chills, sweats, lightheadedness, dizziness, syncope, shortness of breath, orthopnea, PND, cough, hemoptysis, nausea, vomiting, abdominal pain, change in bowel or urinary habits. In the ER troponin was mildly elevated at 0.188. No acute ischemic changes on EKG compare to previous EKG. CXR showed no acute finding. Will trend troponin. Pt already on coumadin and INR 2.5, no heparin drip starting until INR below 2. Will get an echo. Will consult cardiology. Will repeat EKG. Continue aspirin and beta sumi. Will make NPO after midnight. MD Tab (1) CAD (coronary artery disease) Associated angina: with unspecified angina Coronary Disease-Associated Artery /Lesion type: unspecified vessel or lesion type [place] vs. transplanted heart: [place] heart Qualified Code(s): I25.119 - Atherosclerotic heart disease of [place] coronary artery with unspecified angina pectoris
[2020-06-18] MEDS ORDERED: ALPRAZolam 0.25 MG TABLET PO PRN (19:37)
[2020-06-18] MEDS ORDERED: ALUMINUM/MAGNESIUM SUSP 30 ML UDC PO PRN (19:37)
[2020-06-18] MEDS ORDERED: POLYETHYLENE (MIRALAX) 17 GM PACK PO PRN (19:37)
[2020-06-18] MEDS ORDERED: ONDANSETRON INJ 2 MG/ML 2 ML VIAL IV PRN (19:37)
[2020-06-18] MEDS ORDERED: MAGNESIUM HYDROXIDE SUSP 30 ML UDC PO PRN (19:37)
[2020-06-18] MEDS ORDERED: DICYCLOMINE HCL 10 MG CAP PO PRN (19:37)
[2020-06-18] MEDS ORDERED: LABETALOL HCL IV 5 MG/ML 20ML IV STA (19:38)
[2020-06-18] MEDS: ACETAMINOPHEN 325 MG TAB PO PRN (20:51)
[2020-06-18] MEDS ORDERED: ACETAMINOPHEN 325 MG TAB ONE (20:51)
[2020-06-18] MEDS ORDERED: CARVEDILOL PHOSPHATE 20 MG PO SCH (21:00)
[2020-06-18] MEDS ORDERED: PANTOprazole 40 MG TAB PO PRN (21:33)
[2020-06-18] MEDS ORDERED: carvediloL 6.25 MG TAB PO ONE (22:00)
[2020-06-18] MEDS: ISOSORBIDE MONO EXTENDED REL 60 MG TABCR PO SCH (22:47)
[2020-06-18] MEDS: RANOLAZINE 500 MG ER TAB PO SCH (22:47)
--- NOTE | 2020-06-19 06:34 | Electrocardiogram Report ---
Test Reason : Blood Pressure : / mmHG Vent. Rate : 081 BPM Atrial Rate : 081 BPM P-R Int : 208 ms QRS Dur : 102 ms QT Int : 428 ms P-R-T Axes : 000 075 -40 degrees QTc Int : 497 ms Atrial-paced rhythm Possible Inferior infarct , age undetermined Prolonged QT T wave abnormality, consider inferior ischemia Abnormal ECG When compared with ECG of 16-JUN-2019 08:16, Borderline criteria for Inferior infarct are now Present T wave inversion now evident in Inferior leads Nonspecific T wave abnormality, improved in Anterolateral leads Confirmed by Denzel Ambriz ([id number]) on 06/19/2020 6:34:37 AM Referred By: Confirmed By:Denzel Ambriz
[2020-06-19] MEDS: LEVOTHYROXINE SODIUM 50 MCG TABLET PO SCH (06:37)
[2020-06-19 08:08] LABS: Hematocrit (blood only) 39.9 % (37-47); Hemoglobin 12.9 g/dL (12.0-16.0); Mean Corpuscular Hemoglobin 30.3 pg (25-34); Mean Corpuscular Hgb Conc 32.3 g/dL (32-36); Mean Corpuscular Volume 93.7 fL (80-100); Mean Platelet Volume 12.3 fL (7.4-10.4); Platelet Count 174 K/uL (130-400); RDW Coefficient of Variation 14.4 % (11.5-14.5); RDW Standard Deviation 49.1 fL (36.4-46.3); Red Blood Count 4.26 M/uL (4.2-5.4)
[2020-06-19 08:16] LABS: INR 2.3 (0.9-1.1); Prothrombin Time 23.3 Seconds (9.0-12.0)
[2020-06-19 08:45] LABS: Albumin Level 3.1 gm/dl (3.4-5.0); BUN Creatinine Ratio 17.9 (10-20); Creatinine Clr Calc Pharmacy 55.2 ml/min; Est GFR (African American) 65.6; Est GFR (Non-African American) 56.6; Magnesium 2.1 mg/dl (1.8-2.4); Potassium 3.8 mmol/L (3.5-5.1)
[2020-06-19 08:49] LABS: Bilirubin,Total 0.8 mg/dl (0.2-1); Total Protein 6.1 gm/dl (6.4-8.2)
[2020-06-19] MEDS ORDERED: carvediloL 12.5 MG TAB PO SCH (09:00)
[2020-06-19] MEDS: RANOLAZINE 500 MG ER TAB PO SCH ×2 (10:06→20:54)
[2020-06-19] MEDS: CHOLECALCIFEROL 1,000 UNITS 25 MCG TAB PO SCH ×2 (10:07→20:54)
[2020-06-19] MEDS: SUCRALFATE 1 GM TAB PO SCH (10:08)
[2020-06-19] MEDS: SERTRALINE HCL 50 MG TABLET PO SCH (10:08)
[2020-06-19] MEDS: ISOSORBIDE MONO EXTENDED REL 60 MG TABCR PO SCH ×2 (10:09→17:15)
[2020-06-19 10:33] LABS: Estimated Average Glucose 114 mg/dl; Hemoglobin A1C 5.6 % (4.5-5.6)
--- NOTE | 2020-06-19 10:50 | Electrocardiogram Report ---
Test Reason : Blood Pressure : / mmHG Vent. Rate : 067 BPM Atrial Rate : 067 BPM P-R Int : 194 ms QRS Dur : 100 ms QT Int : 482 ms P-R-T Axes : -09 085 -48 degrees QTc Int : 509 ms Atrial-paced rhythm Nonspecific T wave abnormality Prolonged QT Abnormal ECG When compared with ECG of 18-JUN-2020 14:09, Borderline criteria for Inferior infarct are no longer Present Nonspecific T wave abnormality, worse in Lateral leads Confirmed by Pb Lambert ([id number]) on 06/19/2020 10:49:55 AM Referred By: Shonda Oseguera Confirmed By:Juwan Lambert
--- NOTE | 2020-06-19 13:40 | Cardiology Consultation ---
Date of Consultation June 19, 2020 Assessment & Plan (1) Non-ST elevation DC (NSTEMI): The patient has a history of chronic exertional angina with remote CABG x 5 in 2005 in [place] with BROWN to LAD, SVG to diagonal, SVG to OM, SVG to RPDA, and SVG to the distal RCA. In 2010 she underwent a repeat diagnostic cardiac catheterization in [place] at which time the vein grafts to the RPDA and distal RCA territory were noted to be occluded. She had a significant contrast reaction resulting in profound circulatory collapse and airway compromise requiring emergency support with epinephrine infusion and endotracheal intubation. I previously obtained the procedure report from that cardiac catheterization, which described that she did receive appropriate contrast reaction prophylaxis prior to the procedure, and suffered a severe reaction irregardless. At present, I would therefore recommend ongoing conservative medication therapy and observation. Her troponin I is minimally elevated at 0.2 NG per mL, and 2018, she was hospitalized with a diarrheal illness and recurrent rapid atrial fibrillation, and was treated with a non-ST segment elevation myocardial infarction at that time with peak troponin of 4 NG per mL. Continue aspirin, isosorbide mononitrate, Ranexa, Coumadin. (2) Dyslipidemia: Ongoing severe dyslipidemia noted, triglyceride level 322, total cholesterol 327, calculated LDL cholesterol 285, HDL 38. She has been intolerant of multiple statin agents as well as ezetimibe. She was also intolerant of the PCSK9 inhibitor Repatha as an outpatient. After discussing things with her today, she may be agreeable to trying the Repatha again as an outpatient, but otherwise declines additional intervention. (3) Allergy to iodinated contrast media: As noted above. (4) Atrial fibrillation: Continue coumadin, INR 2.3 today. (5) Pacemaker: History of dual-chamber Medtronic permanent pacemaker initially implanted in 2011 due to sick sinus syndrome. Her most recent in person device check to place as an outpatient in January,, at that time the predominant rhythm was sinus rhythm with atrial pacing. Generator longevity was stable at that time of 2.5 years. She was actually due for a check this week, this did not occur, and will need to reschedule her future pacemaker checks to get her back on track. I am not certain she has a capability of performing a remote check. History of Present Illness Attending Physician: Lauren Bacon, DO History of Present Illness Milena Lozoya is an 79 seen in cardiology consultation per the request of Dee Gutierrez PA-C and Dr Bacon for the evaluation of chest pain and NSTEMI. The patient is well-known to the undersigned as I have followed her on an inpatient and outpatient basis for the last several years. At present, sitting in bed in the PCU, she states she is comfortable, with no chest tightness. She notes her most recent episode of subjective chest tightness was while on the ambulance being transferred to the emergency room. It resolved with a dose of sublingual nitroglycerin spray, without recurrence in the interim. She notes recent chest tightness similar to that which she typically feels and is resolved with sublingual nitroglycerin. It was worse and noted with minimal exertion on the 2 days leading up to her hospitalization. As we had discussed at her recent outpatient visit, she is under a lot of psychosocial stress at home. She cares for her who has advanced dementia, and has a son who lives with him. Her adult daughter has recently moved back into the home having recently been , and she has a college aged granddaughter who is also in the home. Per the patient's description, this places a lot of stress on her. Her daughter is caring for her while she is in the hospital. Telemetry reveals predominantly sinus rhythm with atrial pacing, with a few brief episodes of paroxysmal atrial fibrillation. She notes that she has felt more episodes of her typical atrial fibrillation symptoms recently at night. Allergies Allergy/AdvReac Type Severity Reaction Status Date / Time Iodinated Contrast Media Allergy Unknown Hives, Verified 06/18/20 15:33 anaphylaxis ether Allergy Unknown Verified 06/18/20 15:33 prednisone AdvReac Severe GI pain > Verified 06/18/20 15:33 pancreatitis rosiglitazone AdvReac Severe Blood clots Verified 06/18/20 15:33 losartan AdvReac Unknown N/V Verified 06/18/20 15:33 ranitidine AdvReac Unknown N/V, Verified 06/18/20 15:33 achiness atorvastatin [From Lipitor] AdvReac Muscle Pain Verified 06/18/20 15:33 ezetimibe [From Zetia] AdvReac Muscle Pain Verified 06/18/20 15:33 lisinopril AdvReac Cough Verified 06/18/20 15:33 rosuvastatin [From Crestor] AdvReac Muscle Pain Verified 06/18/20 15:33 Home Medications Medication Instructions Recorded Confirmed Type aspirin 1 tab PO QPM 03/19/18 06/18/20 History isosorbide mononitrate See Rx Instructions .ROUTE .COMPLEX 03/19/18 06/18/20 History levothyroxine 50 mcg PO QAM 03/19/18 06/18/20 History nitroglycerin 1 tab SUBLINGUAL UD PRN 03/19/18 06/18/20 History carvedilol phosphate [Coreg CR] 40 mg PO QAM 11/02/18 06/18/20 History sucralfate 1,000 mg PO QAM 02/14/19 06/18/20 History carvedilol phosphate 20 mg PO HS 05/01/19 06/18/20 History ranolazine [Ranexa] 1,000 mg PO BID 04/20/20 06/18/20 History warfarin 2.5 mg PO SUMOTUWETHSA 04/20/20 06/18/20 History omeprazole 20 mg PO DAILY 05/07/20 06/18/20 History alprazolam 0.25 mg PO TID PRN 06/18/20 06/18/20 History cholecalciferol (vitamin D3) 2,000 unit PO BID 06/18/20 06/18/20 History [Vitamin D3] dicyclomine 10 mg PO QID PRN 06/18/20 06/18/20 History sertraline 25 mg PO QAM 06/18/20 06/18/20 History Patient History Medical History CAD (coronary artery disease) CABG x5 in 2005 in [place] with BROWN to LAD, SVG to diagonal, SVG to OM, SVG to RPDA, and SVG to the distal RCA, PCI x3 Carotid artery stenosis LICA/FITZ <50% stenosis, Right subclavian stenosis vs. occlusion with abnormal flow noted in vertebral artery per 08/2019 carotid duplex Chronic back pain DVT (deep venous thrombosis) Dyslipidemia GERD (gastroesophageal reflux disease) HTN (hypertension) Hypothyroidism IPMN (intraductal papillary mucinous neoplasm) Osteoarthritis Pacemaker / SSS, last pacer check 01/2020 Paroxysmal atrial fibrillation Pulmonary embolism remote years ago Surgical History H/O arthroscopy of knee H/O arthroscopy of shoulder H/O parathyroidectomy History of hysterectomy Hx of adenoidectomy Hx of appendectomy Hx of cataract surgery Hx of cholecystectomy Hx of hemorrhoidectomy Hx of tonsillectomy Pacemaker placement S/P BSO (bilateral salpingo-oophorectomy) S/P CABG x 3 CABG x5 in 2006 in [place] with BROWN to LAD, SVG to diagonal, SVG to OM, SVG to RPDA, and SVG to the distal RCA Family History Mother Stroke Social History Smoking Status: Never smoker Second Hand Exposure: No; Hx Alcohol Use: No Hx Substance Use: No Preferred Language: Turkmen Communication Ability: Effective Litigation Support Analyst Required: No Beliefs That Will Affect Care: None marital status: Current Living Situation: Spouse and Family Current Living Situation Comment: Daughter LIVES WITH PT Other Information That Helps Us Care for You: No Feels Safe at Home: Yes Safety Concerns: Feels Safe At This Time Assistive Devices: Glasses Review of Systems Review of Systems: All systems reviewed & are unremarkable except as noted in HPI & below Physical Exam Physical Exam: Temp Pulse Resp BP Pulse Ox 36.9 C 82 18 136/91 94 06/19/20 12:51 06/19/20 12:51 06/19/20 12:51 06/19/20 12:51 06/19/20 12:51 Constitutional: WD/WN, vitals as above Respiratory: normal respiratory effort, lungs clear to auscultation Cardiovascular: RRR, no murmur, no edema Gastrointestinal (Abdomen): normal bowel sounds, soft, nontender, no hepatosplenomegaly Skin: no rashes, warm and dry Neurologic: PERRL, EOMI, accommodation nl, no face palsy, no dysarthria Results & Data ([facility]) Vital Signs (Past 12 Hours) Vital Signs Temp Pulse Pulse Resp BP Pulse Ox 06/19/20 12:51 36.9 C 82 18 136/91 94 06/19/20 08:00 60 06/19/20 07:50 36.6 C 65 18 138/82 94 06/19/20 03:46 36.3 C L 64 16 115/74 93 Laboratory Results Cardiac Enzymes 06/18/20 06/18/20 06/19/20 Range/Units 14:10 20:06 01:22 AST 16 (15-37) U/L Troponin I 0.188 H* 0.224 H* 0.208 H* (0-0.045) ng/ml 06/19/20 Range/Units 07:39 AST 13 L (15-37) U/L Troponin I (0-0.045) ng/ml Coagulation 06/18/20 06/19/20 Range/Units 14:10 07:39 PT 25.5 H 23.3 H (9.0-12.0) Seconds APTT 37.5 H (21.0-31.0) Seconds Lipids 06/19/20 Range/Units 07:39 Triglycerides 322 H (0-150) mg/dl Cholesterol 387 H (0-200) mg/dl HDL Cholesterol 38 mg/dl Cholesterol/HDL Ratio 10 CBC 06/18/20 06/19/20 Range/Units 14:10 07:39 WBC 5.33 4.10 L (4.8-10.8) K/uL RBC 4.69 4.26 (4.2-5.4) M/uL Hgb 14.3 12.9 (12.0-16.0) g/dL Hct 43.7 39.9 (37-47) % Plt Count 206 174 (130-400) K/uL Neut # (Auto) 3.12 (1.4-6.5) K/uL Lymph # (Auto) 1.37 (1.2-3.4) K/uL [place] # (Auto) 0.71 H (0.11-0.59) K/uL Eos # (Auto) 0.09 (0-0.5) K/uL Baso # (Auto) 0.03 (0-0.2) K/uL Comprehensive Metabolic Panel 06/18/20 06/19/20 Range/Units 14:10 07:39 Sodium 139 141 (136-145) mmol/L Potassium 3.9 3.8 (3.5-5.1) mmol/L Chloride 105 107 (98-107) mmol/L Carbon Dioxide 29 27 (21-32) mmol/L BUN 19 H 17 (7-18) mg/dl Creatinine 0.96 0.95 (0.6-1.2) mg/dl Glucose 94 98 (70-99) mg/dl Calcium 9.0 9.0 (8.5-10.1) mg/dl AST 16 13 L (15-37) U/L ALT 18 18 (12-78) U/L Alkaline Phosphatase 77 63 (45-117) U/L Total Protein 7.1 6.1 L (6.4-8.2) gm/dl Albumin 3.6 3.1 L (3.4-5.0) gm/dl Intake and Output 06/18/20 06/19/20 06/19/20 22:59 06:59 14:59 Other: # Unmeasured Voids 2 1 Weight 92.6 kg Weight Measurement Method Built in [facility] Diagnostic Findings EKG tracing performed 06/18/2020 at 1409 reviewed independently reveals sinus rhythm with atrial pacing, and age-indeterminate inferior infarct pattern, with deep T wave inversions noted in the inferior leads III and aVF. Repeat tracing performed today 06/19/2020 at 6:37 AM revealed sinus rhythm with atrial pacing 67 bpm, nonspecific lateral T wave flattening noted, ongoing T wave inversions in the inferior leads, however they are less prominent.
[2020-06-19] MEDS: ACETAMINOPHEN 325 MG TAB PO PRN (14:18)
[2020-06-19] MEDS ORDERED: WARFARIN SOD 2.5 MG TAB PO SCH (16:00)
--- NOTE | 2020-06-19 18:42 | Hospitalist Progress Note ---
Date of Service June 19, 2020 Assessment & Plan (1) NSTEMI (non-ST elevated myocardial infarction): elevated troponin with accelerated angina picture. Monitoring for now per cardiology. Cont medical management. Noted statin intolerance. Coreg is non- formulary, substitution made for inpatient admission. Cont ASA, isosorbide mononitrate, Ranexa and coumadin. (2) CAD (coronary artery disease): h/o CABG remotely. management per above. (3) Atrial fibrillation: rate controlled with beta sumi, continue warfarin. INR therapeutic. (4) HTN (hypertension): chronic, controlled. cont current medical therapy. (5) Pacemaker: pacer interrogation performed. Will review with level vial curvature gauger. (6) CKD (chronic kidney disease) stage 3, GFR 30-59 ml/min: at baseline. Avoid nephrotoxic medications and renally dose medications as needed. (7) DVT prophylaxis: warfarin Full Code dispo-to home when medically stable and cleared by Cardiology. Lauren Bacon DO [facility] and Anticipated Discharge Date Admission Date: June 18, 2020 Subjective 79 yo F presents with accelerating angina symptoms and slightly elevated troponin -chest pain is controlled -described as central (substernal), sharp and severe with radation to both arms -no numbness or tingling in arms, just a sore intense pain -was told she was ?having esoph spasms and was placed on carafate-not helpful -she takes omeprazole regularly -very stressful household situation with unwelcome houseguests -last two weeks symptoms gotten worse -reports pain onset with activity and associated with SOB -resolved with nitro -TWI on EKG inferior leads, new Review of Systems Review of Systems: All systems reviewed & are unremarkable except as noted in Subjective Physical Exam Physical Exam: CONSTITUTIONAL: WNWD, vitals as above, generally well- appearing EYES: normal conjunctivae, no scleral icterus ENT: external ear and nose normal, oropharynx clear, MMM RESPIRATORY: clear to auscultation bilaterally, no crackles, rales or wheezes, normal respiratory effort CARDIOVASCULAR: regular rate and rhythm, S1 and 2 heard without murmurs, gallops or rubs, no JVD, no peripheral edema GASTROINTESTINAL: normal bowel sounds, soft, nontender, nondistended, no guarding MUSCULOSKELETAL: strength 5/5 throughout, head is normocephalic and atraumatic, neck supple, normal palpation of chest wall without tenderness SKIN: warm and dry NEUROLOGIC: CN 2-12 grossly intact, no sensory deficit, normal cognition, normal speech, no gross focal deficits. PSYCHIATRIC: alert cooperative and oriented to person, place and time. Results & Data Results & Data ([facility]) Vital Signs (Past 12 Hours) Vital Signs Temp Pulse Pulse Resp BP Pulse Ox 06/19/20 17:08 37.0 C 64 18 119/69 91 06/19/20 16:00 87 06/19/20 12:51 36.9 C 82 18 136/91 94 06/19/20 08:00 60 06/19/20 07:50 36.6 C 65 18 138/82 94 Laboratory Results Short CBC 06/19/20 Range/Units 07:39 WBC 4.10 L (4.8-10.8) K/uL Hgb 12.9 (12.0-16.0) g/dL Hct 39.9 (37-47) % Plt Count 174 (130-400) K/uL BMP 06/19/20 07:39 Sodium 141 Potassium 3.8 Chloride 107 Carbon Dioxide 27 BUN 17 Creatinine 0.95 Glucose 98 Calcium 9.0 Cardiac Enzymes 06/18/20 06/19/20 Range/Units 20:06 01:22 Troponin I 0.224 H* 0.208 H* (0-0.045) ng/ml Liver Function 06/19/20 Range/Units 07:39 Total Bilirubin 0.8 (0.2-1) mg/dl AST 13 L (15-37) U/L ALT 18 (12-78) U/L Alkaline Phosphatase 63 (45-117) U/L Albumin 3.1 L (3.4-5.0) gm/dl Medications Administered Current Inpatient Medications Acetaminophen (Acetaminophen 325 Mg Tab) 650 mg PO Q4H PRN PRN Reason: Pain or Fever Stop: 07/18/20 19:36 Last Admin: 06/19/20 14:18 Dose: 650 mg Documented by: Al Hydrox/Mg Hydrox/Simethicone (Aluminum/Magnesium Susp 30 Ml Udc) 15 ml PO Q4H PRN PRN Reason: Dyspepsia Stop: 07/18/20 19:36 Alprazolam (Alprazolam 0.25 Mg Tablet) 0.25 mg PO TID PRN PRN Reason: Anxiety Stop: 07/18/20 19:36 Aspirin (Aspirin 81 Mg Ectab) 81 mg PO QPM [facility] Stop: 07/19/20 20:59 Dicyclomine HCl (Dicyclomine Hcl 10 Mg Cap) 10 mg PO QID PRN PRN Reason: Indigestion Stop: 07/18/20 19:36 Isosorbide Mononitrate (Isosorbide Jerauld Extended Rel 60 Mg Tabcr) 60 mg PO QDD [facility] Stop: 07/18/20 21:59 Last Admin: 06/19/20 17:15 Dose: 60 mg Documented by: Isosorbide Mononitrate (Isosorbide Jerauld Extended Rel 60 Mg Tabcr) 120 mg PO QAM [facility] Stop: 07/19/20 08:59 Last Admin: 06/19/20 10:09 Dose: 120 mg Documented by: Levothyroxine Sodium (Levothyroxine Sodium 50 Mcg Tablet) 50 mcg PO DAILYBB [facility] Stop: 07/19/20 06:29 Last Admin: 06/19/20 06:37 Dose: 50 mcg Documented by: Magnesium Hydroxide (Magnesium Hydroxide Susp 30 Ml Udc) 30 ml PO Q12H PRN PRN Reason: Constipation Stop: 07/18/20 19:36 Miscellaneous (*Coreg Cr*Order Awaiting Action) 1 ea N/A QS [facility] Stop: 07/19/20 07:59 Last Admin: 06/19/20 17:14 Dose: Not Given Documented by: Nitroglycerin (Nitroglycerin Sl 0.4 Mg/Tab Tab) 0.4 mg SL UD PRN PRN Reason: Chest Pain Stop: 07/18/20 19:36 Ondansetron HCl (Ondansetron Inj 2 Mg/Ml 2 Ml Vial) 4 mg IV Q6H PRN PRN Reason: Nausea Stop: 07/18/20 19:36 Pantoprazole Sodium (Pantoprazole 40 Mg Tab) 40 mg PO DAILY PRN PRN Reason: Acid Reflux Stop: 07/18/20 21:32 Last Admin: 06/19/20 10:08 Dose: 40 mg Documented by: Polyethylene Glycol (Polyethylene (Miralax) 17 Gm Pack) 17 gm PO DAILY PRN PRN Reason: Constipation Stop: 07/18/20 19:36 Ranolazine (Ranolazine 500 Mg Er Tab) 1,000 mg PO BID [facility] Stop: 07/18/20 20:59 Last Admin: 06/19/20 10:06 Dose: 1,000 mg Documented by: Sertraline HCl (Sertraline Hcl 50 Mg Tablet) 25 mg PO QAM [facility] Stop: 07/19/20 08:59 Last Admin: 06/19/20 10:08 Dose: 25 mg Documented by: Sucralfate (Sucralfate 1 Gm Tab) [facility] Stop: 07/19/20 08:59 Last Admin: 06/19/20 10:08 Dose: 1 gm Documented by: Vitamin D (Cholecalciferol 1,000 Units 25 Mcg Tab) 2,000 units PO BID [facility] Stop: 07/19/20 08:59 Last Admin: 06/19/20 10:07 Dose: 2,000 units Documented by: Warfarin Sodium (Warfarin Sod 2.5 Mg Tab) 2.5 mg PO [email or web address] [facility] Stop: 07/19/20 15:59 Last Admin: 06/19/20 17:13 Dose: 2.5 mg Documented by: (1) CAD (coronary artery disease) Associated angina: with unspecified angina Coronary Disease-Associated Artery/Lesion type: unspecified vessel or lesion type [place] vs. transplanted heart: [place] heart Qualified Code(s): I25.119 - Atherosclerotic heart disease of [place] coronary artery with unspecified angina pectoris
[2020-06-19] MEDS ORDERED: ASPIRIN 81 MG ECTAB PO SCH (21:00)
[2020-06-20] MEDS: LEVOTHYROXINE SODIUM 50 MCG TABLET PO SCH (06:18)
[2020-06-20 07:03] LABS: INR 2.2 (0.9-1.1); Prothrombin Time 22.4 Seconds (9.0-12.0)
[2020-06-20] MEDS: RANOLAZINE 500 MG ER TAB PO SCH (08:26)
[2020-06-20] MEDS: CHOLECALCIFEROL 1,000 UNITS 25 MCG TAB PO SCH (08:27)
[2020-06-20] MEDS: ISOSORBIDE MONO EXTENDED REL 60 MG TABCR PO SCH (08:27)
[2020-06-20] MEDS: SERTRALINE HCL 50 MG TABLET PO SCH (08:27)
[2020-06-20] MEDS: SUCRALFATE 1 GM TAB PO SCH (08:28)
[2020-06-20] MEDS ORDERED: carvediloL 25 MG TAB PO SCH (09:00)
--- NOTE | 2020-06-20 11:42 | Discharge Summary ---
Date of Service June 20, 2020 Admission HPI Per Admitting Provider This is a 79-year-old female who has significant PMH of CABG x5 (in 2005 in [place] with BROWN to LAD, SVG to diagonal, SVG to OM, SVG to RPDA, and SVG to the distal RCA), hx of diagnostic cardiac cath 2010 vein grafts to RPDA and distal RCA occluded with significant contrast reaction resulting in profound shock requiring emergency support and mechanical ventilation, hx of dual chamber pacer 2011 with last interrogation 01/2020, PAF anticoagulated on warfarin, history of DVT/PE on warfarin, HTN, HLD, hypothyroidism, hyperparathyroidism status post parathyroidectomy presents to ED secondary to worsening chest pain for the past 2 to 3 weeks requiring 2-3 nitroglycerin daily. She states ever since her last cardiac cath in 2010 she has experienced chronic chest pain. She follows closely with [facility] cardiology who has managed her mostly from medical standpoint secondary to profound contrast allergy. She noted significant relief after the addition of Ranexa to her regimen and some benefit from Imdur as well. She would treat her chronic chest pain with periodic nitroglycerin; however over the past 2 to 3 weeks she noticed her exertional chest pain has been worsening, becoming more frequent, been present with less exertion, and she has been taking 2-3 nitro daily. Chest pain has been a little different as well as it is precordial and radiates down to both arms. If she sits down soon enough it will improve with rest; however otherwise it requires nitro. It has been taking nitro longer to relieve chest pain as well. She states she has been feeling palpitations at night when she is laying down feeling like she is going into A. fib. She also has noticed chest pain when lying down as well, but otherwise denies any other chest pain with rest. She denies any fever, chills, sweats, lightheadedness, dizziness, syncope, shortness of breath, orthopnea, PND, cough, hemoptysis, nausea, vomiting, abdominal pain, change in bowel or urinary habits. She lives at home with her who has dementia as well as her daughter most recently moved in. She was seen and evaluated in clinic today by Dr. Romero and was referred to ED 2/2 to ecg changes and worsening CP. In ED patient remained hemodynamically stable and while at rest was chest pain- free. She did receive full dose aspirin in route. She does have new EKG changes inferiorly and a mildly elevated troponin at 0.188. Her INR is therapeutic. Her CBC and CMP generally unremarkable. Chest x-ray negative for acute abnormality. Admission Exam Per Admitting Provider Constitutional: WD/WN, F, vitals as above, NAD, sitting up in bed, pleasant, conversing easily Head: Normocephalic, Atraumatic Eyes: PERRL, conjunctivae normal, anicteric sclerae ENMT: external ear and nose normal, oropharynx normal Neck: trachea midline, no thyromegaly normal visual inspection Respiratory: normal respiratory effort, lungs clear to auscultation, no wheeze, rales, rhonchi. Normal insp/exp effort, no accessory muscle use Cardiovascular: RRR, no murmur, no edema Vessels: no JVD or carotid bruit Chest: normal inspection of chest, sternal scar noted Abdomen: normal bowel sounds, soft, nontender, no hepatosplenomegaly Musculoskeletal: no cyanosis or clubbing, extremities motor strength 5/5 Skin: no rashes, warm and dry normal turgor Neurologic: PERRL, EOMI, accommodation nl, no face palsy, no dysarthria CN's II-XI intact bilaterally and moves all extremities Psychiatric: A+Ox3, euthymic affect Lymphatic: no cervical or axillary lymphadenopathy : deferred Principal Diagnosis NSTEMI Discharge Exam CONSTITUTIONAL: WNWD, vitals as above, generally well-appearing EYES: normal conjunctivae, no scleral icterus ENT: external ear and nose normal, oropharynx clear, MMM RESPIRATORY: clear to auscultation bilaterally, no crackles, rales or wheezes, normal respiratory effort CARDIOVASCULAR: regular rate and rhythm, S1 and 2 heard without murmurs, gallops or rubs, no JVD, no peripheral edema GASTROINTESTINAL: normal bowel sounds, soft, nontender, nondistended, no guarding MUSCULOSKELETAL: strength 5/5 throughout, head is normocephalic and atraumatic, neck supple, normal palpation of chest wall without tenderness SKIN: warm and dry NEUROLOGIC: CN 2-12 grossly intact, no sensory deficit, normal cognition, normal speech, no gross focal deficits. PSYCHIATRIC: alert cooperative and oriented to person, place and time. Discharge Data Allergies Allergy/AdvReac Type Severity Reaction Status Date / Time Iodinated Contrast Media Allergy Unknown Hives, Verified 06/18/20 15:33 anaphylaxis ether Allergy Unknown Verified 06/18/20 15:33 prednisone AdvReac Severe GI pain > Verified 06/18/20 15:33 pancreatitis rosiglitazone AdvReac Severe Blood clots Verified 06/18/20 15:33 losartan AdvReac Unknown N/V Verified 06/18/20 15:33 ranitidine AdvReac Unknown N/V, Verified 06/18/20 15:33 achiness atorvastatin [From Lipitor] AdvReac Muscle Pain Verified 06/18/20 15:33 ezetimibe [From Zetia] AdvReac Muscle Pain Verified 06/18/20 15:33 lisinopril AdvReac Cough Verified 06/18/20 15:33 rosuvastatin [From Crestor] AdvReac Muscle Pain Verified 06/18/20 15:33 Consultations 06/18/20 15:26 ED Decision to Admit Stat 06/18/20 16:18 Consult Cardiology Routine 06/18/20 19:37 Consult Case Management - Discharge Planning Routine Hospital Course (1) NSTEMI (non-ST elevated myocardial infarction): (2) CAD (coronary artery disease): (3) Atrial fibrillation: (4) Pacemaker: The patient is an 79-year-old female with a significant history of coronary disease status post CABG x5 in 2005 and a diagnostic cardiac catheterization in 2010. She presented with accelerating anginal symptoms with a prior 2 to 3 weeks requiring 2-3 nitroglycerin per day to manage her symptoms. Since her cardiac catheterization 2010 she has experienced chronic chest pain and follows closely with [facility] cardiology. She was found to have a slightly elevated troponin and this was trended overnight without considerable rise (0.188, 0.224, 0.208). She remained chest pain-free in the hospital and there were no acute events on telemetry. An echocardiogram revealed mild concentric left ventricular hypertrophy, subtle hypokinesis of the inferior and posterior wall at the base with otherwise normal wall motion and preserved ejection fraction (55%). Left ventricular systolic function is normal, left atrium is mildly dilated, grade 1 diastolic dysfunction is noted. As she felt better and was eager to go home after a couple of days in the hospital and she was able to ambulate in the hallway with no recurrence of angina, she was discharged in stable condition with close cardiology follow-up recommended. Of note, she has a history of severe contrast allergy in the past. She was continued on aspirin, isosorbide mononitrate, Ranexa and Coumadin per her current home regimen. Notably her EKG revealed chronic inferior repolarization abnormalities with the corrected QT interval mildly prolonged at 500 ms. Cardiology recommends continuing Ranexa as this has been beneficial for her from a symptom standpoint. She also has been intolerant of multiple statin agents as well as ezetimibe and was intolerant of the PC SK 9 inhibitor Repatha as an outpatient. After discussing things with her she may be agreeable to trying Repatha again as an outpatient. At time of discharge she was mentating and ambulating at baseline and tolerating p.o. She was hemodynamically stable and afebrile and oxygenating well on room air. She was discharged in stable condition with close primary care follow-up recommended and close cardiology follow-up recommended. She will need to get back on track with her pacemaker interrogation checks. Total Time Total Time Spent Total Time Spent (In Minutes): 30 Total Time Includes: Examination of the Patient, Discharge Planning, Medication Reconciliation and Communication With Other Providers Discharge Plan Discharge Items Patient Disposition: Home - Home Health Services Reason For Visit: NSTEMI Discharge Diagnosis: NSTEMI Condition on Discharge: Good Activity: Resume your previous activity Non-emergency contact: Primary Care Provider Call non-emergency contact if: you have any medication questions, your symptoms worsen and your pain is not controlled Follow-up/Referrals: Shonda Fields MD [Primary Care Provider] - 06/24/20 9:00 am (Dr. Joshua Oseguera is unavailable. Please follow up with Dr. Valencia on 06/24/2020 at 9:00 am. Please arrive to the office 15 minutes early for your appointment. If you are unable to keep this appointment, please call the office to reschedule at [phone].) Diet: Heart Healthy Addtl Attending Provider Instructions: Please take all medications as instructed on discharge list below. It is recommended that you follow-up with your primary care physician within one week of discharge to ensure you are still doing well and your symptoms haven't returned or worsened. Please follow-up with [facility] Cardiology within the next month. Someone from their office will be in touch with you regarding date and times. They will review your recent pacemaker interrogation with you at that time. It was a pleasure taking care of you! Please call if you have any questions or problems. You can reach a [facility] hospitalist on duty at [facility] 24 hours a day by calling [phone]. Take care of yourself. Lauren Bacon, DO [facility] Hospitalist Pending Studies at Discharge: No Stand-Alone Forms: [facility] Medications and DC Order Prescriptions: Continued aspirin 81 mg Tablet,Delayed Release (Dr/Ec) 1 tab PO QPM RF: 0 isosorbide mononitrate 60 mg Tablet Extended Release 24 Hr See Rx Instructions .ROUTE .COMPLEX RF: 0 levothyroxine 50 mcg Tablet 50 mcg PO QAM RF: 0 nitroglycerin 0.4 mg Tablet, Sublingual 1 tab Sublingual UD PRN (Reason: Chest Pain) RF: 0 carvedilol phosphate [Coreg CR] 40 mg capsule, ER multiphase 24 hr 40 mg PO QAM RF: 0 sucralfate 1 gram tablet 1,000 mg PO QAM RF: 0 carvedilol phosphate 20 mg Capsule, Er Multiphase 24 Hr 20 mg PO HS RF: 0 warfarin 2.5 mg Tablet 2.5 mg PO SUMOTUWETHSA RF: 0 ranolazine [Ranexa] 500 mg Tablet Extended Release 12 Hr 1,000 mg PO BID RF: 0 omeprazole 20 mg capsule,delayed release(DR/EC) 20 mg PO DAILY RF: 0 alprazolam 0.25 mg tablet 0.25 mg PO TID PRN (Reason: Anxiety) RF: 0 sertraline 25 mg tablet 25 mg PO QAM RF: 0 dicyclomine 10 mg Capsule 10 mg PO QID PRN (Reason: Indigestion) RF: 0 cholecalciferol (vitamin D3) [Vitamin D3] 50 mcg (2,000 unit) tablet 2,000 unit PO BID RF: 0 Discharge Orders: Discharge Order (Routine); Ordered 06/20/20 Ordered By: Lauren Bacon Admission Data Admit Date/Time: 06/18/20 16:18 Attending Provider: Lauren Bacon Admit Provider: Deb Barth Primary Care Provider: Shonda Fields Other Providers: Victoriano Stephens Other Interventions: Discharge Summary Assessment (RN) Last Done: 06/20/20 11:43
--- NOTE | 2020-06-20 12:00 | Cardiology Progress Note ---
Date of Service June 20, 2020 Assessment & Plan (1) NSTEMI (non-ST elevated myocardial infarction): (1) Non-ST elevation VT (NSTEMI): The patient has a history of chronic exertional angina with remote CABG x 5 in 2005 in [place] with BROWN to LAD, SVG to diagonal, SVG to OM, SVG to RPDA, and SVG to the distal RCA. In 2010 she underwent a repeat diagnostic cardiac catheterization in [place] at which time the vein grafts to the RPDA and distal RCA territory were noted to be occluded. She had a significant contrast reaction resulting in profound circulatory collapse and airway compromise requiring emergency support with epinephrine infusion and endotracheal intubation. I previously obtained the procedure report from that cardiac catheterization, which described that she did receive appropriate contrast reaction prophylaxis prior to the procedure, and suffered a severe reaction irregardless. Minimal troponin I elevation noted. Patient feels better, and is eager to go home. She has a longstanding history of chronic exertional angina and takes nitroglycerin frequently. Since my initial assessment of her this morning, she was able to ambulate in the hallway, with no recurrence of angina. Continue aspirin, isosorbide mononitrate, Ranexa, Coumadin. EKG reveals chronic inferior repolarization abnormalities, the corrected QT interval is mildly prolonged at 500 ms. QT interval prolongation is noted, however she has had significant symptomatic benefit with regards to treatment utilizing Ranexa and I think it is most prudent to continue this medication for now. No ventricular arrhythmias noted on telemetry. (2) Dyslipidemia with longstanding history of statin intolerance: Ongoing severe dyslipidemia noted, triglyceride level 322, total cholesterol 327, calculated LDL cholesterol 285, HDL 38. She has been intolerant of multiple statin agents as well as ezetimibe. She was also intolerant of the PCSK9 inhibitor Repatha as an outpatient. After discussing things with her today, she may be agreeable to trying the Repatha again as an outpatient, but otherwise declines additional intervention. (3) Allergy to iodinated contrast media, with history of anaphylaxis, circulatory collapse at time of previous cardiac catheterization despite having received appropriate contrast reaction prophylaxis: As noted above. (4) Atrial fibrillation: Continue coumadin, INR 2.2 today, 06/20/2020.. (5) Pacemaker: History of dual-chamber [employer] permanent pacemaker initially implanted in 2011 due to sick sinus syndrome. Her most recent in person device check to place as an outpatient in January,, at that time the predominant rhythm was sinus rhythm with atrial pacing. Generator longevity was stable at that time of 2.5 years. She was actually due for a check this week, this did not occur, and will need to reschedule her future pacemaker checks to get her back on track. Will have office contact her. Per her description , it sounds like she needs a new home box. DISPOSITION: STABLE FROM CARDIAC PERSPECTIVE FOR DISCHARGE TO HOME. Admission and Anticipated Discharge Date Admission Date: June 18, 2020 Subjective Patient seen in follow-up of chest discomfort. She notes overall feeling well, she had 2 brief episodes of chest discomfort overnight last night both of which resolved with rest without needing nitroglycerin. EKG reveals stable findings this morning. Telemetry reveals sinus rhythm with atrial pacing in the 70s. She did have a brief run of atrial fibrillation on 06/19/2020 at 6:36 AM that resolved spontaneously. Physical Exam Physical Exam: Temp Pulse Resp BP Pulse Ox 36.5 C 75 18 153/92 H 96 06/20/20 11:43 06/20/20 11:43 06/20/20 11:43 06/20/20 11:43 06/20/20 11:43 Constitutional: WD/WN, vitals as above Respiratory: normal respiratory effort, lungs clear to auscultation Cardiovascular: RRR, no murmur, no edema Chest (Breasts): Chest: + pacemaker (Pacemaker pocket clean dry and intact, no erythema, well-healed incision) Gastrointestinal (Abdomen): normal bowel sounds, soft, nontender, no hepatosplenomegaly Neurologic: PERRL, EOMI, accommodation nl, no face palsy, no dysarthria Results & Data ([facility]) Vital Signs (Past 12 Hours) Vital Signs Temp Pulse Pulse Resp BP BP Pulse Ox 06/20/20 11:43 36.5 C 75 18 153/92 H 144/76 H 96 06/20/20 08:00 60 06/20/20 07:00 36.5 C 75 18 153/92 H 96 06/20/20 03:52 36.8 C 73 18 144/76 H 95
--- NOTE | 2020-06-20 13:13 | Electrocardiogram Report ---
Test Reason : Blood Pressure : / mmHG Vent. Rate : 070 BPM Atrial Rate : 070 BPM P-R Int : 204 ms QRS Dur : 102 ms QT Int : 468 ms P-R-T Axes : 000 070 -03 degrees QTc Int : 505 ms Atrial-paced rhythm Nonspecific T wave abnormality Prolonged QT Abnormal ECG When compared with ECG of 19-JUN-2020 06:37, Nonspecific T wave abnormality no longer evident in Lateral leads Confirmed by Pb Lambert ([id number] on 06/20/2020 1:13:14 PM Referred By: Shonda Oseguera Confirmed By:Juwan Lambert
== END 2020-06-20 12:36 | disposition home health service (06) | DRG 282 ==
LOC: ED 14:02 → SUATTDRO 16:18 → 2S 16:18

== ENCOUNTER 2022-12-21 12:05 | Inpatient (IN) ==
[2022-12-21] MEDS ORDERED: ONDANSETRON INJ 2 MG/ML 2 ML VIAL IV STA ×2 (12:17→12:36)
[2022-12-21] MEDS ORDERED: SODIUM CHLORIDE 0.9% 500 ML IV ONE (12:17)
--- NOTE | 2022-12-21 12:33 | Emergency Department Note ---
Impression & Plan Abdominal pain, Acute pancreatitis ED Provider Note NAME: PENNIE BARRAZA AGE: 82 SEX: F : 1940 ARRIVES VIA: Walk-In INFORMANT: Patient ED PROVIDER(S): Arsh Wolff DO CHIEF COMPLAINT: abdominal pain HPI: Patient is an 82-year-old female with a past medical history of CAD, CKD, NSTEMI, hypertension, A-fib with with cholecystectomy, appendectomy, CABG x3 who presents ER for mid abdominal pain and left flank pain associated with some nausea but no vomiting. She has been eating and drinking. Does not change with eating and drinking. She notes her pain is mainly focal in that left mid abdomen but that she does have some periumbilical discomfort but is very dull. Pain has been constant for the past 2 weeks. She has followed up with her PCP as an outpatient and had a CT which showed pancreatitis. She had blood work done yesterday which showed an elevated lipase. She was referred in today for an additional work-up with the elevated lipase. PAST MEDICAL HISTORY:See Below PAST SURGICAL HISTORY:See Below FAMILY HISTORY:See Below SOCIAL HISTORY:See Below HOME MEDICATIONS:See Below ALLERGIES:See Below VITALS:See Below PHYSICAL EXAMINATION: GENERAL: Sitting up in bed, alert, well appearing, well nourished, no distress, non-toxic EYE EXAM: normal conjunctiva. OROPHARYNX: mucous membranes are moist LUNGS: Clear to auscultation. Normal chest wall mechanics HEART: no murmurs, S1 normal and S2 normal ABDOMEN: abdomen soft, faint tenderness mid abdominal to left flank, normo- active bowel sounds, no masses, no rebound or guarding. UPPER EXTREMITIES: upper extremities are grossly normal. LOWER EXTREMITIES: No pitting edema. NEURO EXAM: Normal sensorium, cranial nerves II-XII grossly intact, normal speech, no gross weakness of arms, no gross weakness of legs. MEDICAL DECISION MAKING: Patient is an 82-year-old female who presents ER for above-stated complaint. IV was established blood work was obtained. External records were reviewed. Labs show no significant leukocytosis or anemia. INR at 1.7. BMP along with LFTs bilirubin was unremarkable. Lipase was elevated at 476. COVID-negative. CT and blood work was reviewed as an outpatient which showed pancreatitis. Patient was given fluids Zofran and morphine. Discussed with gastroenterology and will as she has anaphylaxis to IV contrast we discussed performing an MR. After getting off the phone and reviewing the chart patient has a pacemaker and is unable to have an MRI. With this I discussed with the case with the hospitalist Avis who will rediscussed with gastroenterology and, with an additional plan. Patient was updated bedside admitted for further work-up. Triage Nursing notes reviewed. Limited review of prior medical records performed Vital Signs: reviewed and remarkable for no significant abnormalities Differential diagnosis: Differential diagnoses includes but is not limited to gastritis, peptic ulcer disease, GERD, gallbladder disease, pancreatitis, small bowel obstruction, appendicitis, diverticulitis, hernia, urinary tract infection, torsion, perforation, trauma, infectious. ER treatment provided: See below Diagnostics interpreted by me include EKG and cardiac monitoring as listed below: -Cardiac Monitoring: An order was placed for continuous cardiac monitoring. The monitor shows a rate of 80 with sinus rhythm. -ECG: none -Laboratory studies:Interpreted by me as stated above in MDM and shown below. Imaging studies: Xrays: As interpreted by me:none CTs show: none Consultation(s): As described in MDM Procedures:none Critical Care: None Past Med/Surg History Medical History CAD (coronary artery disease) CABG x5 in 2005 in [place] with BROWN to LAD, SVG to diagonal, SVG to OM, SVG to RPDA, and SVG to the distal RCA, PCI x3 Carotid artery stenosis LICA/FITZ <50% stenosis, Right subclavian stenosis vs. occlusion with abnormal flow noted in vertebral artery per 08/2019 carotid duplex Chronic back pain DVT (deep venous thrombosis) Dyslipidemia GERD (gastroesophageal reflux disease) HTN (hypertension) Hypothyroidism IPMN (intraductal papillary mucinous neoplasm) Osteoarthritis Pacemaker / [facility], last pacer check 01/2020 Paroxysmal atrial fibrillation Pulmonary embolism remote years ago Surgical History H/O arthroscopy of knee H/O arthroscopy of shoulder H/O parathyroidectomy History of hysterectomy Hx of adenoidectomy Hx of appendectomy Hx of cataract surgery Hx of cholecystectomy Hx of hemorrhoidectomy Hx of tonsillectomy Pacemaker placement S/P BSO (bilateral salpingo-oophorectomy) S/P CABG x 3 CABG x5 in 2005 in [place] with BROWN to LAD, SVG to diagonal, SVG to OM, SVG to RPDA, and SVG to the distal RCA Family History Mother Stroke Social History Smoking Status: Never smoker Second Hand Exposure: No; Do You Dip or Chew Tobacco: No; Hx Alcohol Use: No Hx Substance Use: No Preferred Language: Georgian Communication Ability: Effective Jordan Worker Required: No Beliefs That Will Affect Care: None marital status: Current Living Situation: Spouse and Family Current Living Situation Comment: Daughter LIVES WITH PT Feels Safe at Home: Yes Assistive Devices: Glasses Allergies Allergies Allergy/AdvReac Type Severity Reaction Status Date / Time Iodinated Contrast Media Allergy Severe Hives, Verified 11/09/21 18:38 anaphylaxis ether Allergy Unknown Unknown Verified 11/09/21 18:38 prednisone AdvReac Severe GI pain > Verified 11/09/21 18:38 pancreatitis rosiglitazone AdvReac Severe Blood clots Verified 11/09/21 18:38 atorvastatin [From Lipitor] AdvReac Intermediate Muscle Pain Verified 11/09/21 18:38 ezetimibe [From Zetia] AdvReac Intermediate Muscle Pain Verified 11/09/21 18:38 lisinopril AdvReac Intermediate Cough Verified 11/09/21 18:38 losartan AdvReac Intermediate N/V Verified 11/09/21 18:38 ranitidine AdvReac Intermediate N/V, Verified 11/09/21 18:38 achiness rosuvastatin [From Crestor] AdvReac Intermediate Muscle Pain Verified 11/09/21 18:38 Home Meds Home Medications Medication Instructions Recorded Confirmed aspirin 81 mg tablet,delayed 81 mg PO QPM 03/19/18 12/21/22 release isosorbide mononitrate 60 mg See Rx Instructions .Route .COMPLEX 03/19/18 12/21/22 tablet,extended release 24 hr levothyroxine 50 mcg tablet 50 mcg PO QAM 03/19/18 12/21/22 nitroglycerin 0.4 mg sublingual 1 tab sublingual UD PRN Chest Pain 03/19/18 12/21/22 tablet carvedilol phosphate 40 mg 40 mg PO QAM 11/02/18 12/21/22 capsule,[id number] multiphase (Coreg CR) carvedilol phosphate 20 mg 20 mg PO HS 05/01/19 12/21/22 capsule,[id number] multiphase omeprazole 20 mg capsule,delayed 20 mg PO DAILY PRN Acid Reflux 05/07/20 12/21/22 release alprazolam 0.25 mg tablet (Xanax) 0.25 mg PO TID PRN Anxiety 06/18/20 12/21/22 cholecalciferol (vitamin D3) 50 2,000 unit PO QAM 06/18/20 12/21/22 mcg (2,000 unit) tablet (Vitamin D3) dicyclomine 10 mg capsule 10 mg PO QID PRN Indigestion 06/18/20 12/21/22 sertraline 25 mg tablet 0 mg PO QAM 06/18/20 12/21/22 acetaminophen 500 mg tablet 1,000 mg PO Q6H PRN knee pain 02/24/21 12/21/22 (Tylenol Extra Strength) warfarin 2 mg tablet 5 mg PO PM 02/24/21 12/21/22 calcium carbonate 600 mg calcium 600 mg PO DAILY 11/09/21 12/21/22 (1,500 mg) tablet (Calcium) amlodipine 5 mg tablet 0 mg PO DAILY 12/21/22 12/21/22 amoxicillin 875 mg-potassium 0 tab PO DAILY 12/21/22 12/21/22 clavulanate 125 mg tablet cholestyramine (with sugar) 4 gram 1 ea PO Q OTHER DAY 12/21/22 12/21/22 powder for susp in a packet sertraline 100 mg tablet 0 mg PO DAILY 12/21/22 12/21/22 Results & Data (ED) Vital Signs Vital Signs - 24 hr 12/21/22 12:08 12/21/22 12:40 12/21/22 13:13 Temperature 36.7 C Temperature Source Temporal Artery Scan Pulse Rate 98 H 71 Respiratory Rate 18 Blood Pressure 144/97 H Blood Pressure Mean 112 Pulse Oximetry 94 94 Oxygen Delivery Method Room Air Room Air Sepsis Recent Fever Within 48 Hours No Sepsis New/Unexplained Change in Mental Status No Sepsis Action Taken by Nursing No Action Required Laboratory Data 12/21/22 12:28 12/21/22 12:29 Lab Results 12/21/22 12/21/22 12/21/22 Range/Units 12:28 12:29 12:29 WBC 6.29 (4.8-10.8) K/ul RBC 4.24 (4.20-5.40) M/uL Hgb 12.2 (12.0-16.0) g/dl Hct 36.7 L (37.0-47.0) % MCV 86.6 (80.0-100.0) fL MCH 28.8 (25.0-34.0) pg MCHC 33.2 (32.0-36.0) g/dL RDW Std Deviation 41.7 (36.4-46.3) fL RDW Coeff of Chelo 13.3 (11.5-14.5) % Plt Count 239 (130-400) K/uL MPV 11.5 (9.4-12.4) fL Immature Gran % (Auto) 0.5 % Neut % (Auto) 67.9 % Lymph % (Auto) 18.3 % Lawrence % (Auto) 10.0 % Eos % (Auto) 2.7 % Baso % (Auto) 0.6 % Neut # (Auto) 4.27 (1.40-6.50) K/uL Lymph # (Auto) 1.15 L (1.2-3.4) K/uL Lawrence # (Auto) 0.63 H (0.11-0.59) K/uL Eos # (Auto) 0.17 (0-0.50) K/uL Baso # (Auto) 0.04 (0-0.2) K/uL Immature Gran # (Auto) 0.03 (0.01-0.20) K/uL PT 17.8 H (9.0-12.0) Seconds INR 1.7 H (0.9-1.1) Sodium 139 (136-145) mmol/L Potassium 3.7 (3.5-5.1) mmol/L Chloride 105 (98-107) mmol/L Carbon Dioxide 30 (21-32) mmol/L Anion Gap 4 (3-11) BUN 25 H (6-23) mg/dl Creatinine 0.96 (0.6-1.2) mg/dl Est Cr Clr Drug Dosing 51.0 ml/min Est GFR ( Amer) 63.4 ml/min Est GFR (Non-Af Amer) 54.7 ml/min BUN/Creatinine Ratio 26.0 H (10-20) Glucose 156 H (70-99(Fasting)) mg/dl Calcium 9.6 (8.6-10.3) mg/dl Total Bilirubin 0.4 (0.2-1.0) mg/dl AST 12 L (13-39) U/L ALT 12 (7-52) U/L Alkaline Phosphatase 68 (34-104) U/L Total Protein 6.5 (6.0-8.3) gm/dl Albumin 3.5 (3.4-5.0) gm/dl Globulin 3.0 (2.5-4.0) gm/dl Albumin/Globulin Ratio 1.2 (0.9-2) Lipase 476 H (11-82) U/L SARS-CoV-2, RNA, NAAT (NEGATIVE) 12/21/22 Range/Units 12:29 WBC (4.8-10.8) K/ul RBC (4.20-5.40) M/uL Hgb (12.0-16.0) g/dl Hct (37.0-47.0) % MCV (80.0-100.0) fL MCH (25.0-34.0) pg MCHC (32.0-36.0) g/dL RDW Std Deviation (36.4-46.3) fL RDW Coeff of Chelo (11.5-14.5) % Plt Count (130-400) K/uL MPV (9.4-12.4) fL Immature Gran % (Auto) % Neut % (Auto) % Lymph % (Auto) % Lawrence % (Auto) % Eos % (Auto) % Baso % (Auto) % Neut # (Auto) (1.40-6.50) K/uL Lymph # (Auto) (1.2-3.4) K/uL Lawrence # (Auto) (0.11-0.59) K/uL Eos # (Auto) (0-0.50) K/uL Baso # (Auto) (0-0.2) K/uL Immature Gran # (Auto) (0.01-0.20) K/uL PT (9.0-12.0) Seconds INR (0.9-1.1) Sodium (136-145) mmol/L Potassium (3.5-5.1) mmol/L Chloride (98-107) mmol/L Carbon Dioxide (21-32) mmol/L Anion Gap (3-11) BUN (6-23) mg/dl Creatinine (0.6-1.2) mg/dl Est Cr Clr Drug Dosing ml/min Est GFR ( Amer) ml/min Est GFR (Non-Af Amer) ml/min BUN/Creatinine Ratio (10-20) Glucose (70-99(Fasting)) mg/dl Calcium (8.6-10.3) mg/dl Total Bilirubin (0.2-1.0) mg/dl AST (13-39) U/L ALT (7-52) U/L Alkaline Phosphatase (34-104) U/L Total Protein (6.0-8.3) gm/dl Albumin (3.4-5.0) gm/dl Globulin (2.5-4.0) gm/dl Albumin/Globulin Ratio (0.9-2) Lipase (11-82) U/L SARS-CoV-2, RNA, NAAT NEGATIVE (NEGATIVE) Administered Medications Discontinued Medications Sodium Chloride (Nss) 500 mls @ 999 mls/hr IV .Q31M ONE Stop: 12/21/22 12:47 Last Infusion: 12/21/22 14:03 Dose: 0 mls/hr Documented By: Admin: 12/21/22 12:28 Dose: 999 mls/hr Documented By: FAITH Morphine Sulfate (Morphine Sulfate 2 Mg/Ml Carp) 2 mg IV NOW STA Stop: 12/21/22 12:37 Last Admin: 12/21/22 12:56 Dose: 2 mg Documented By: FAITH Ondansetron HCl (Ondansetron Inj 2 Mg/Ml 2 Ml Vial) 4 mg IV NOW STA Stop: 12/21/22 12:18 Last Admin: 12/21/22 12:32 Dose: 4 mg Documented By: FAITH Ondansetron HCl (Ondansetron Inj 2 Mg/Ml 2 Ml Vial) 4 mg IV NOW STA Stop: 12/21/22 12:37 Last Admin: 12/21/22 14:01 Dose: Not Given Documented By: FAITH Discharge Plan Visit Data Chief Complaint: Abnormal Labs/Diagnostic Testing Stated Complaint: ABNORMAL LABS ED Provider: Arsh Wolff Discharge Problem: Abdominal pain, Acute pancreatitis Forms Stand Alone Forms: My [facility] Prescriptions Prescriptions: No Action aspirin 81 mg Tablet,Delayed Release (Dr/Ec) 81 mg PO QPM isosorbide mononitrate 60 mg Tablet Extended Release 24 Hr See Rx Instructions .ROUTE .COMPLEX Rx Instructions: 60 MG ORALLY; TAKES 120 MG QAM, THEN 60 MG QPM. levothyroxine 50 mcg Tablet 50 mcg PO QAM nitroglycerin 0.4 mg Tablet, Sublingual 1 tab Sublingual UD PRN (Reason: Chest Pain) carvedilol phosphate [Coreg CR] 40 mg capsule, ER multiphase 24 hr 40 mg PO QAM Patient Comments: BRAND NECESSARY Rx Instructions: BRAND NECESSARY carvedilol phosphate 20 mg Capsule, Er Multiphase 24 Hr 20 mg PO HS Patient Comments: BRAND NECESSARY Rx Instructions: BRAND NECESSARY omeprazole 20 mg capsule,delayed release(DR/EC) 20 mg PO DAILY PRN (Reason: Acid Reflux) alprazolam [Xanax] 0.25 mg tablet 0.25 mg PO TID PRN (Reason: Anxiety) sertraline 25 mg tablet 0 mg PO QAM Rx Instructions: Per pt she isn't sure which dose she takes of zoloft.The most current dose is 100 mg with a fill date of October. dicyclomine 10 mg Capsule 10 mg PO QID PRN (Reason: Indigestion) cholecalciferol (vitamin D3) [Vitamin D3] 50 mcg (2,000 unit) tablet 2,000 unit PO QAM acetaminophen [Tylenol Extra Strength] 500 mg Tablet 1,000 mg PO Q6H PRN (Reason: knee pain) warfarin 2 mg tablet 5 mg PO PM calcium carbonate [Calcium 600] 600 mg calcium (1,500 mg) Tablet 600 mg PO DAILY sertraline 100 mg tablet 0 mg PO DAILY Rx Instructions: Per pt she isn't sure which dose she takes of zoloft. The most current dose is 100 mg with a fill date of October. amlodipine 5 mg tablet 0 mg PO DAILY Rx Instructions: hasnt picked up yet amoxicillin-pot clavulanate 875-125 mg tablet 0 tab PO DAILY Rx Instructions: Hasn't picked up yet cholestyramine (with sugar) 4 gram powder in packet 1 ea PO Q OTHER DAY Referrals Referrals: Shonda Chakraborty MD [Primary Care Provider] -
[2022-12-21] MEDS ORDERED: MoRPHine SULFATE 2 MG/ML CARP IV STA (12:36)
[2022-12-21 13:15] LABS: Albumin Globulin Ratio 1.2 (0.9-2); Albumin Level 3.5 gm/dl (3.4-5.0); Bilirubin,Total 0.4 mg/dl (0.2-1.0); Calcium 9.6 mg/dl (8.6-10.3); Est GFR (African American) 63.4 ml/min; Est GFR (Non-African American) 54.7 ml/min; Potassium 3.7 mmol/L (3.5-5.1); Total Protein 6.5 gm/dl (6.0-8.3)
[2022-12-21 13:17] LABS: INR 1.7 (0.9-1.1); Prothrombin Time 17.8 Seconds (9.0-12.0)
[2022-12-21 13:21] LABS: Basophils # (auto) 0.04 K/uL (0-0.2); Basophils % (auto) 0.6 %; Eosinophils # (auto) 0.17 K/uL (0-0.50); Eosinophils % (auto) 2.7 %; Hematocrit (blood only) 36.7 % (37.0-47.0); Hemoglobin 12.2 g/dl (12.0-16.0); Immature Granulocytes # (auto) 0.03 K/uL (0.01-0.20); Immature Granulocytes % (auto) 0.5 %; Lymphocytes # (auto) 1.15 K/uL (1.2-3.4); Lymphocytes % (auto) 18.3 %; Mean Corpuscular Hemoglobin 28.8 pg (25.0-34.0); Mean Corpuscular Hgb Conc 33.2 g/dL (32.0-36.0); Mean Corpuscular Volume 86.6 fL (80.0-100.0); Mean Platelet Volume 11.5 fL (9.4-12.4); Monocytes # (auto) 0.63 K/uL (0.11-0.59); Neutrophils # (auto) 4.27 K/uL (1.40-6.50); Neutrophils % (auto) 67.9 %; Platelet Count 239 K/uL (130-400); RDW Coefficient of Variation 13.3 % (11.5-14.5); RDW Standard Deviation 41.7 fL (36.4-46.3); Red Blood Count 4.24 M/uL (4.20-5.40); White Blood Count 6.29 K/ul (4.8-10.8)
--- NOTE | 2022-12-21 13:46 | History & Physical Report ---
Date of Service December 21, 2022 Assessment & Plan (1) Acute pancreatitis: (2) Atrial fibrillation: (3) CKD (chronic kidney disease) stage 3, GFR 30-59 ml/min: (4) CAD (coronary artery disease): (5) Hypothyroidism: (6) HTN (hypertension): Plan This is an 82yo F with a PMH of pancreatic cyst 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 Acute pancreatitis L flank radiating to midback intermittently x [address] abd/pelvis without contrast showed diffuse infiltration at the distal body and tail the pancreas consistent with pancreatitis CT also shows edema at the tail of the pancreas which may be related to pancreatitis, ruptured pancreatic tail cystic lesion or combination of both Lipase 476 today (outpatient lipase >700) Discussed with GI - would not repeat CT study given h/o anaphylactic reaction to contrast dye even while premedicated with prednisone previously Unable to pursue MRI studies given pacemaker - checking compatibility with MRI service Ok to advance to clear, strict NPO @ [place] for EGD scheduled in AM Protonix 40mg daily Per GI, plan for repeat OP EUS evaluation Goal INR 1.5 for procedure. Currently 1.7 - hold evening dose and repeat INR in AM Paroxysmal A fib Continue carvedilol, holding evening dose of Coumadin for goal INR of 1.5 for EGD tomorrow morning CKD III Cr at baseline CAD H/o CABG in 2005. Continue aspirin, beta sumi. Intolerant to statin Hypothyroidism Continue levothyroxine HTN Elevated 2/2 pain. Optimize pain control, continue amlodipine, carvedilol Mood disorder Continue Zoloft, Xanax PRN DVT Ppx: Code status: FULL PCP: Mylene Dispo: Admitting to med/surg Patient seen in collaboration with Dr. Weber. Please see addendum. I spent a total of 75 minutes coordinating, documenting, and providing care for this patient excluding time spent in the performance of separately billed services. History of Present Illness Chief Complaint: abdominal pain Primary Care Provider: Shonda Chakraborty MD This is an 82yo F with a PMH of pancreatic cyst 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 Was seen in clinic last week for 2 weeks of left flank pain, concern for pancreatitis and was encouraged to go to ED based on imaging findings of pancreatic cyst, but by that time symptoms had resolved and she did not go. Returned to clinic 2 days ago with cramping abdominal pain and diarrhea and CT abdomen pelvis without contrast revealed diffuse infiltration at the distal body and tail of the pancreas consistent with pancreatitis, edema at the tail of the pancreas which may be related to pancreatitis, ruptured pancreatic tail cystic lesion or combination of both. Recommended an MRI pancreas with MRCP. Was directed to ED for further evaluation. Today, she describes pain as left flank/back pain radiating to central back that is colicky in nature, exacerbated with movement. Is currently comfortable at rest after being given IV morphine. Has had intermittent nausea at home but no vomiting. Poor appetite. Denies any fever, chills. Recent issues with diarrhea and was started on trial of Questran which has helped. Denies any lightheadedness, headache, chest pain, shortness of breath, constipation. Taking all medication as prescribed. Of note, has history of anaphylaxis reaction to iodine contrast. Allergies Allergy/AdvReac Type Severity Reaction Status Date / Time Iodinated Contrast Media Allergy Severe Hives, Verified 11/09/21 18:38 anaphylaxis ether Allergy Unknown Unknown Verified 11/09/21 18:38 prednisone AdvReac Severe GI pain > Verified 11/09/21 18:38 pancreatitis rosiglitazone AdvReac Severe Blood clots Verified 11/09/21 18:38 atorvastatin [From Lipitor] AdvReac Intermediate Muscle Pain Verified 11/09/21 18:38 ezetimibe [From Zetia] AdvReac Intermediate Muscle Pain Verified 11/09/21 18:38 lisinopril AdvReac Intermediate Cough Verified 11/09/21 18:38 losartan AdvReac Intermediate N/V Verified 11/09/21 18:38 ranitidine AdvReac Intermediate N/V, Verified 11/09/21 18:38 achiness rosuvastatin [From Crestor] AdvReac Intermediate Muscle Pain Verified 11/09/21 18:38 Home Medications Medication Instructions Recorded Confirmed Type aspirin 81 mg tablet,delayed 81 mg PO QPM 03/19/18 12/21/22 History release isosorbide mononitrate 60 mg See Rx Instructions .Route .COMPLEX 03/19/18 12/21/22 History tablet,extended release 24 hr levothyroxine 50 mcg tablet 50 mcg PO QAM 03/19/18 12/21/22 History nitroglycerin 0.4 mg sublingual 1 tab sublingual UD PRN Chest Pain 03/19/18 12/21/22 History tablet carvedilol phosphate 40 mg 40 mg PO QAM 11/02/18 12/21/22 History capsule,[id number] multiphase (Coreg CR) carvedilol phosphate 20 mg 20 mg PO HS 05/01/19 12/21/22 History capsule,[id number] multiphase omeprazole 20 mg capsule,delayed 20 mg PO DAILY PRN Acid Reflux 05/07/20 12/21/22 History release alprazolam 0.25 mg tablet (Xanax) 0.25 mg PO TID PRN Anxiety 06/18/20 12/21/22 History cholecalciferol (vitamin D3) 50 2,000 unit PO QAM 06/18/20 12/21/22 History mcg (2,000 unit) tablet (Vitamin D3) dicyclomine 10 mg capsule 10 mg PO QID PRN Indigestion 06/18/20 12/21/22 History acetaminophen 500 mg tablet 1,000 mg PO Q6H PRN knee pain 02/24/21 12/21/22 History (Tylenol Extra Strength) warfarin 2 mg tablet 5 mg PO PM 02/24/21 12/21/22 History calcium carbonate 600 mg calcium 600 mg PO DAILY 11/09/21 12/21/22 History (1,500 mg) tablet (Calcium) amlodipine 5 mg tablet 5 mg PO DAILY 12/21/22 12/21/22 History cholestyramine (with sugar) 4 gram 1 ea PO Q OTHER DAY 12/21/22 12/21/22 History powder for susp in a packet famotidine 20 mg tablet 20 mg PO BID PRN Dyspepsia 12/21/22 12/21/22 History sertraline 100 mg tablet 100 mg PO DAILY 12/21/22 12/21/22 History Past Med/Surg History Medical History CAD (coronary artery disease) CABG x5 in 2005 in [place] with BROWN to LAD, SVG to diagonal, SVG to OM, SVG to RPDA, and SVG to the distal RCA, PCI x3 Carotid artery stenosis LICA/FITZ <50% stenosis, Right subclavian stenosis vs. occlusion with abnormal flow noted in vertebral artery per 08/2019 carotid duplex Chronic back pain DVT (deep venous thrombosis) Dyslipidemia GERD (gastroesophageal reflux disease) HTN (hypertension) Hypothyroidism IPMN (intraductal papillary mucinous neoplasm) Osteoarthritis Pacemaker 08/03 [facility], last pacer check 01/2020 Paroxysmal atrial fibrillation Pulmonary embolism remote years ago Surgical History H/O arthroscopy of knee H/O arthroscopy of shoulder H/O parathyroidectomy History of hysterectomy Hx of adenoidectomy Hx of appendectomy Hx of cataract surgery Hx of cholecystectomy Hx of hemorrhoidectomy Hx of tonsillectomy Pacemaker placement S/P BSO (bilateral salpingo-oophorectomy) S/P CABG x 3 CABG x5 in 2005 in [place] with BROWN to LAD, SVG to diagonal, SVG to OM, SVG to RPDA, and SVG to the distal RCA Family History Mother Stroke Social History Smoking Status: Never smoker Second Hand Exposure: No; Do You Dip or Chew Tobacco: No; Hx Alcohol Use: No Hx Substance Use: No Preferred Language: Polish Communication Ability: Effective Machine Sander Required: No Beliefs That Will Affect Care: None marital status: Current Living Situation: Spouse and Family Current Living Situation Comment: Daughter LIVES WITH PT Feels Safe at Home: Yes Safety Concerns: Feels Safe At This Time Assistive Devices: Glasses Assistive Devices Comment: none Review of Systems Review of Systems: At least ten systems reviewed and negative except as noted in the HPI. Physical Exam Physical Exam: General Appearance: WD/WN, vitals as above, NAD, sitting up in bed, pleasant, conversing easily Head: normocephalic, atraumatic Eyes: normal inspection, PERRL, conjunctivae normal, anicteric sclerae ENT: external ear and nose normal, oropharynx normal Neck: normal visual inspection, trachea midline, no thyromegaly Respiratory: normal respiratory effort, lungs clear to auscultation, no wheeze, rales, rhonchi. No accessory muscle use Cardiovascular: regular rate, rhythm, no murmur, normal peripheral pulses, no BLE edema. Vessels: no JVD Chest: normal inspection of chest Abdomen/GI: normal bowel sounds, soft, nontender Extremities/Musculoskeletal: + L flank and midback pain TTP, no deformity noted. No cyanosis or clubbing, extremities motor strength 5/5 Neurologic: PERRL, EOMI, accommodation nl, no face palsy, no dysarthria, CN's II-XI intact bilaterally and moves all extremities Psychiatric: A+Ox3, euthymic affect Skin: no rashes, normal color, warm/dry Results & Data Results & Data Vital Signs (Past 12 Hours) Vital Signs Temp Pulse Resp BP Pulse Ox O2 Del Method 12/21/22 13:13 71 12/21/22 12:40 94 Room Air 12/21/22 12:08 36.7 C 98 H 18 144/97 H 94 Room Air Laboratory Results Short CBC 12/21/22 Range/Units 12:28 WBC 6.29 (4.8-10.8) K/ul Hgb 12.2 (12.0-16.0) g/dl Hct 36.7 L (37.0-47.0) % Plt Count 239 (130-400) K/uL BMP 12/21/22 12:29 Sodium 139 Potassium 3.7 Chloride 105 Carbon Dioxide 30 BUN 25 H Creatinine 0.96 Glucose 156 H Calcium 9.6 Liver Function 12/21/22 Range/Units 12:29 Total Bilirubin 0.4 (0.2-1.0) mg/dl AST 12 L (13-39) U/L ALT 12 (7-52) U/L Alkaline Phosphatase 68 (34-104) U/L Albumin 3.5 (3.4-5.0) gm/dl Supervising Physician Co-Signing Physician Notes Ms. Lozoya is an 82 yo F with a PMH including but not limited to pancreatic cyst suspected IPMN, CAD s/p CABG in 2005, hx of pacemaker placement, pAfib and hx of VTE on warfarin, HTN, HLP (statin intolerance), adrenal insufficiency, hypothyroidism, hyperparathyroidism s/p parathyroidectomy, and CKD III. She was sent in d/t abnormal CT (consistent with acute pancreatitis and pancreatic cyst bigger than on prior images). Pt seen and examined at bedside. She reports severe pain on the left side wrapping around from the LUQ to the left flank. Pt states pain is more consistent with prior kidney stones but more severe. She was watching for stones at home but didn't notice any. The pain started around Dec 08. Her son was visiting from out of town so she didn't do anything about it at the time. At that time pain was severe to the point she couldn't even eat. She scheduled OP visit after her son left. She was sent for CT but by that time pain had gotten much better spontaneously. She has had pain d/t pancreatitis in the past, but on the right side. She denies dizziness, lightheadedness, f/c/n/v, CP, sob, dysuria, and diarrhea. She needs a bowel regimen at baseline to avoid constipation. She does note at least one year of urinary urgency with sensation of incomplete voiding and urinary incontinence. She is wondering if this is all connected. # pancreatitis: continue bowel rest, IVF, analgesia elevated Lipase (>700 OP), here 476 CLD and advance as tolerated when pain is sufficiently controlled known pancreatic cysts including the head and body since at least 2019, continue with OP follow up Per GI no need to repeat CT now, PPM is not compatible with MRI EGD IP, repeat EUS OP # urinary urgency: chronic. Associated with sensation of incomplete voiding f/u post void residual, may need to see a urologist as outpatient # CAD: no complaints at this time continue ASA, BB, Isosorbide, can not tolerate statin or zetia # pafib: rate controlled continue BB hold Warfarin in preparation for EGD INR subtherapeutic, consider bridge with lovenox post procedure until INR is therapeutic # HTN: poor control, likely pain mediated, anticipate improvement on next set of VS continue BB # Hypothyroidism: continue levothyroxine # hx VTE: Coumadin on hold for EGD INR subtherapeutic, consider bridge with lovenox post procedure until INR is therapeutic General: WD/WN, NAD, sitting up in bed, pleasant, conversing easily Head: normocephalic, atraumatic Eyes: conjunctivae normal, anicteric sclerae Nose: nose normal, nares patent Mouth: MMM ENT: external ear and nose normal, oropharynx normal Neck: normal visual inspection, trachea midline Respiratory: normal respiratory effort, CTA Cardiovascular: RRR S1 S2 Abdomen/GI: +BS, soft, NT, no guarding. TTP LUQ, LLQ Extremities/Musculoskeletal: normal bulk and tone, no significant edema Neurologic: moves all extremities symmetrically, alert, oriented x3 Psychiatric: pleasant mood and affect Skin: no rashes, normal color, warm/dry Rest per attested note above (4) CAD (coronary artery disease) Associated angina: with unspecified angina Coronary Disease-Associated Artery/Lesion type: unspecified vessel or lesion type [place] vs. transplanted heart: [place] heart Qualified Code(s): I25.119 - Atherosclerotic heart disease of [place] coronary artery with unspecified angina pectoris
[2022-12-21] MEDS ORDERED: PANTOprazole 40 MG TAB PO STA (14:20)
--- NOTE | 2022-12-21 14:37 | Gastrointestinal Consultation ---
Date of Consultation December 21, 2022 Assessment & Plan (1) Abdominal pain: (2) Acute pancreatitis: Pt is a 82 yo female who presented w c/o L flank pain radiating to LUQ abd area. Outpt workup w noncontrasted CT abd/pelvis showed diffuse infiltration at the distal body and tail the pancreas consistent with pancreatitis. Outpt labs showed lipase >700. She also had edema at the tail the pancreas which may be related to pancreatitis, ruptured pancreatic tail cystic lesion, or a combination of both. There is increased size of distal pancreatic body cystic lesion of 3.9 x 3.5cm. Secondary inflammatory change to the spleen and descending colon are noted as well. Abd exam benign today wo pain illicited w d eep palpation though pt just received Morphine - IVF support - CL diet today - Protonix 40mg daily - Would not repeat CT study given use of contrast use even w Prednisone pre med caused anaphylactic reaction in the past - MRCP not obtained given she has a pacemaker - Symptomatic management - Plan also for repeat OP EUS evaluation Supervising Physician Co-Signing Physician Notes Attg add: I interviewed and examined pt, reviewed chart and labs. Pt with LUQ pain not clearly associated with meals/exertion, occurring several times a day and lasting approx an hour, for the past 2-3 weeks. Her appetite and PO intake are unchanged. She has chronic IBS symptoms which appear unchanged. She had CT as outpt which showed increase in size of body IPMN, and peripanc inflammation around tail. Also, her lipase is increased, > 3 x ULN, transaminases are normal. A/P: Focal pancreatitis related to IPMN? - Unfortunately, cannot have MRI due to pacemaker, and cannot have contrast enhanced CT due to h/o anaphylaxis (daughter describes pt needing CPR during CT, even with prednisone pre-treat). Will review MRI with radiology, o/w consider EUS with Dr. Wiley. History of Present Illness Reason for Consultation: Abd pain Requesting Physician: Dr. Arsh Wolff Attending Physician: Dr. Lavelle Nayak History of Present Illness Pt is a 82 yo female w PMHx of pancreas cyst suspected IPMN, adrenal insufficiency, CABG, Afib on Warfarin, s/p pacer, PE/DVT, HTN, HLD, hypothyroidism, hyperparathyroidism s/p parathyroidectomy, CKD III who was referred to ED w c/o L flank to LUQ abd pain that's been going on for months. Pain is intermittent and may not be associated w eating, though when she is in severe pain, she may avoid eating. Pain seems to be aggravated if she is more active or does more chores, shopping. She also reports pain may come on when she is laying down. Sometimes she takes Gabapentin which helps. Takes also APAP occasionally but avoids NSAIDs. She denies fever, chills, CP, SOB, n/v. Used to have stool urgency after eating, but since given a trial of Questran, this has improved. She had CT abd/pelvis wo IV contrast on 12/18/2022 (in [employer] system), which showed diffuse infiltration at the distal body and tail the pancreas consistent with pancreatitis. Outpt labs showed lipase >700. she also had edema at the tail the pancreas which may be related to pancreatitis, ruptured pancreatic tail cystic lesion, or a combination of both. There is increased size of distal pancreatic body cystic lesion of 3.9 x 3.5cm. Secondary inflammatory change to the spleen and descending colon are noted as well. Of note, pt had hx of IV contrast allergy and was given trial of Prednisone pre med prior to contrasted CT study years ago, ended up w anaphylactic reaction needing resuscitation. Admission labs reviewed - no leukocytosis, LFTs normal, Lipase 400s. Allergies Allergy/AdvReac Type Severity Reaction Status Date / Time Iodinated Contrast Media Allergy Severe Hives, Verified 11/09/21 18:38 anaphylaxis ether Allergy Unknown Unknown Verified 11/09/21 18:38 prednisone AdvReac Severe GI pain > Verified 11/09/21 18:38 pancreatitis rosiglitazone AdvReac Severe Blood clots Verified 11/09/21 18:38 atorvastatin [From Lipitor] AdvReac Intermediate Muscle Pain Verified 11/09/21 18:38 ezetimibe [From Zetia] AdvReac Intermediate Muscle Pain Verified 11/09/21 18:38 lisinopril AdvReac Intermediate Cough Verified 11/09/21 18:38 losartan AdvReac Intermediate N/V Verified 11/09/21 18:38 ranitidine AdvReac Intermediate N/V, Verified 11/09/21 18:38 achiness rosuvastatin [From Crestor] AdvReac Intermediate Muscle Pain Verified 11/09/21 18:38 Home Medications Medication Instructions Recorded Confirmed Type aspirin 81 mg tablet,delayed 81 mg PO QPM 03/19/18 12/21/22 History release isosorbide mononitrate 60 mg See Rx Instructions .Route .COMPLEX 03/19/18 12/21/22 History tablet,extended release 24 hr levothyroxine 50 mcg tablet 50 mcg PO QAM 03/19/18 12/21/22 History nitroglycerin 0.4 mg sublingual 1 tab sublingual UD PRN Chest Pain 03/19/18 12/21/22 History tablet carvedilol phosphate 40 mg 40 mg PO QAM 11/02/18 12/21/22 History capsule,ext.[id number] multiphase (Coreg CR) carvedilol phosphate 20 mg 20 mg PO HS 05/01/19 12/21/22 History capsule,ext.[id number] multiphase omeprazole 20 mg capsule,delayed 20 mg PO DAILY PRN Acid Reflux 05/07/20 12/21/22 History release alprazolam 0.25 mg tablet (Xanax) 0.25 mg PO TID PRN Anxiety 06/18/20 12/21/22 History cholecalciferol (vitamin D3) 50 2,000 unit PO QAM 06/18/20 12/21/22 History mcg (2,000 unit) tablet (Vitamin D3) dicyclomine 10 mg capsule 10 mg PO QID PRN Indigestion 06/18/20 12/21/22 History acetaminophen 500 mg tablet 1,000 mg PO Q6H PRN knee pain 02/24/21 12/21/22 History (Tylenol Extra Strength) warfarin 2 mg tablet 5 mg PO PM 02/24/21 12/21/22 History calcium carbonate 600 mg calcium 600 mg PO DAILY 11/09/21 12/21/22 History (1,500 mg) tablet (Calcium) amlodipine 5 mg tablet 0 mg PO DAILY 12/21/22 12/21/22 History cholestyramine (with sugar) 4 gram 1 ea PO Q OTHER DAY 12/21/22 12/21/22 History powder for susp in a packet famotidine 20 mg tablet 20 mg PO BID PRN Dyspepsia 12/21/22 12/21/22 History sertraline 100 mg tablet 100 mg PO DAILY 12/21/22 12/21/22 History Patient History Medical History CAD (coronary artery disease) CABG x5 in 2005 in [place] with BROWN to LAD, SVG to diagonal, SVG to OM, SVG to RPDA, and SVG to the distal RCA, PCI x3 Carotid artery stenosis LICA/FITZ <50% stenosis, Right subclavian stenosis vs. occlusion with abnormal flow noted in vertebral artery per 08/2019 carotid duplex Chronic back pain DVT (deep venous thrombosis) Dyslipidemia GERD (gastroesophageal reflux disease) HTN (hypertension) Hypothyroidism IPMN (intraductal papillary mucinous neoplasm) Osteoarthritis Pacemaker 08/03 [facility], last pacer check 01/2020 Paroxysmal atrial fibrillation Pulmonary embolism remote years ago Surgical History H/O arthroscopy of knee H/O arthroscopy of shoulder H/O parathyroidectomy History of hysterectomy Hx of adenoidectomy Hx of appendectomy Hx of cataract surgery Hx of cholecystectomy Hx of hemorrhoidectomy Hx of tonsillectomy Pacemaker placement S/P BSO (bilateral salpingo-oophorectomy) S/P CABG x 3 CABG x5 in 2005 in [place] with BROWN to LAD, SVG to diagonal, SVG to OM, SVG to RPDA, and SVG to the distal RCA Family History Mother Stroke Social History Smoking Status: Never smoker Second Hand Exposure: No; Do You Dip or Chew Tobacco: No; Hx Alcohol Use: No Hx Substance Use: No Preferred Language: [place] Communication Ability: Effective Locker Operator Required: No Beliefs That Will Affect Care: None marital status: Current Living Situation: Spouse and Family Current Living Situation Comment: Daughter LIVES WITH PT Feels Safe at Home: Yes Assistive Devices: Glasses Review of Systems Review of Systems: All systems reviewed & are unremarkable except as noted in HPI & below Physical Exam Constitutional: WD/WN, vitals as above well groomed, cooperative and comfortable Eyes: PERRL, conjunctivae normal, anicteric sclerae ENMT: external ear and nose normal, oropharynx normal Respiratory: normal respiratory effort, lungs clear to auscultation Cardiovascular: RRR, no murmur, no edema Gastrointestinal (Abdomen): normal bowel sounds, soft, nontender, no hepatosplenomegaly Skin: no rashes, warm and dry no jaundice Psychiatric: A+Ox3, euthymic affect Lymphatic: no lymphedema Results & Data Vital Signs (Past 12 Hours) Vital Signs Temp Pulse Resp BP Pulse Ox O2 Del Method 12/21/22 13:13 71 12/21/22 12:40 94 Room Air 12/21/22 12:08 36.7 C 98 H 18 144/97 H 94 Room Air
[2022-12-21] MEDS: LACTATED RINGER'S 1,000 ML IV SCH ×2 (14:42→20:52)
[2022-12-21] MEDS ORDERED: MoRPHine SULFATE 2 MG/ML CARP IV PRN (15:00)
[2022-12-21] MEDS ORDERED: ONDANSETRON INJ 2 MG/ML 2 ML VIAL IV PRN (15:45)
[2022-12-21] MEDS ORDERED: POLYETHYLENE (MIRALAX) 17 GM PACK PO PRN (15:45)
[2022-12-21] MEDS ORDERED: DICYCLOMINE HCL 10 MG CAP PO PRN (16:05)
[2022-12-21] MEDS ORDERED: ALPRAZolam 0.25 MG TABLET PO PRN (16:05)
[2022-12-21] MEDS ORDERED: FAMOTIDINE 20 MG TAB PO PRN (16:05)
[2022-12-21] MEDS ORDERED: PANTOprazole 40 MG TAB PO PRN (16:32)
[2022-12-21 19:54] LABS: Appearance Urine Clear (Clear); Bilirubin Urine Negative (Negative); Blood Urine Negative (Negative); Color Urine Yellow; Glucose Urine UA Negative (Negative); Ketones Urine Negative (Negative); Leukocyte Esterase Urine Negative (Negative); Nitrite Urine Negative (Negative); Protein Urine Negative (Negative); Urobilinogen Urine Negative (Negative)
[2022-12-21] MEDS: ISOSORBIDE MONO EXTENDED REL 60 MG TABCR PO SCH (20:50)
[2022-12-21] MEDS: ASPIRIN 81 MG ECTAB PO SCH (20:51)
[2022-12-21] MEDS: carvediloL 12.5 MG TAB PO SCH (20:58)
[2022-12-21] MEDS: ACETAMINOPHEN 325 MG TAB PO PRN (22:01)
[2022-12-22] MEDS: LACTATED RINGER'S 1,000 ML IV SCH ×2 (03:26→14:55)
[2022-12-22] MEDS: LEVOTHYROXINE SODIUM 50 MCG TABLET PO SCH (05:41)
[2022-12-22 07:30] LABS: Hematocrit (blood only) 33.6 % (37.0-47.0); Mean Corpuscular Hemoglobin 28.3 pg (25.0-34.0); Mean Corpuscular Hgb Conc 32.7 g/dL (32.0-36.0); Mean Corpuscular Volume 86.4 fL (80.0-100.0); Mean Platelet Volume 11.3 fL (9.4-12.4); Platelet Count 190 K/uL (130-400); RDW Coefficient of Variation 13.3 % (11.5-14.5); RDW Standard Deviation 41.5 fL (36.4-46.3); Red Blood Count 3.89 M/uL (4.20-5.40); White Blood Count 5.09 K/ul (4.8-10.8)
[2022-12-22 07:45] LABS: INR 1.7 (0.9-1.1); Prothrombin Time 18.2 Seconds (9.0-12.0)
[2022-12-22 07:48] LABS: Albumin Globulin Ratio 1.2 (0.9-2); BUN Creatinine Ratio 20.8 (10-20); Bilirubin,Total 0.4 mg/dl (0.2-1.0); Calcium 8.6 mg/dl (8.6-10.3); Est GFR (African American) 89.8 ml/min; Est GFR (Non-African American) 77.4 ml/min; Globulin 2.6 gm/dl (2.5-4.0); Potassium 3.6 mmol/L (3.5-5.1); Total Protein 5.6 gm/dl (6.0-8.3)
--- NOTE | 2022-12-22 09:13 | Gastroenterology Progress Note ---
Date of Service December 22, 2022 Assessment & Plan (1) Abdominal pain: (2) Acute pancreatitis: Plan: Pt is a 82 yo female who presented w c/o L flank pain radiating to LUQ abd area. Outpt workup w noncontrasted CT abd/pelvis showed diffuse infiltration at the distal body and tail the pancreas consistent with pancreatitis. Outpt labs showed lipase >700. She also had edema at the tail the pancreas which may be related to pancreatitis, ruptured pancreatic tail cystic lesion, or a combination of both. There is increased size of distal pancreatic body cystic lesion of 3.9 x 3.5cm. Secondary inflammatory change to the spleen and descending colon are noted as well. Abd exam benign today. - Low fat, heart healthy diet - EGD/EUS evaluation on Sunday12/25/[address] Magdaleno Wiley - Protonix 40mg daily - Would not repeat CT study given use of contrast use even w Prednisone pre med caused anaphylactic reaction in the past - MRCP not obtained given she has a pacemaker - Symptomatic management Admission and Anticipated Discharge Date Admission Date: December 21, 2022 Supervising Physician Co-Signing Physician Notes Attg add: Pt without complaint. CT reviewed with [employer] rads - focal panc of tail, increase in IPMN. EUS on Sunday. Subjective Pt did well overnight. Overall L sided abd pain is improved but present when she moved around. Denies nausea, vomiting, had CL diet last night, NPO since midnight Review of Systems Review of Systems: All systems reviewed & are unremarkable except as noted in HPI & below Physical Exam Constitutional: WD/WN, vitals as above well groomed, cooperative and comfortable Eyes: PERRL, conjunctivae normal, anicteric sclerae ENMT: external ear and nose normal, oropharynx normal Respiratory: normal respiratory effort, lungs clear to auscultation Cardiovascular: RRR, no murmur, no edema Gastrointestinal (Abdomen): normal bowel sounds, soft, nontender, no hepatosplenomegaly Skin: no rashes, warm and dry no jaundice Psychiatric: A+Ox3, euthymic affect Lymphatic: no lymphedema Results & Data Vital Signs (Past 12 Hours) Vital Signs Temp Pulse Resp BP Pulse Ox O2 Del Method 12/22/22 07:21 36.3 C L 73 16 157/92 H 93 Room Air
[2022-12-22] MEDS: carvediloL 25 MG TAB PO SCH (09:28)
[2022-12-22] MEDS: SERTRALINE HCL 100 MG TABLET PO SCH (09:28)
[2022-12-22] MEDS: PANTOprazole 40 MG TAB PO SCH (09:28)
[2022-12-22] MEDS: CALCIUM CARBONATE 1250MG TAB PO SCH (09:28)
[2022-12-22] MEDS: ISOSORBIDE MONO EXTENDED REL 60 MG TABCR PO SCH ×2 (09:29→21:25)
[2022-12-22] MEDS: amLODIPine BESYLATE 5 MG TAB PO SCH (09:29)
[2022-12-22] MEDS: CHOLECALCIFEROL 1,000 UNITS 25 MCG TAB PO SCH (09:29)
--- NOTE | 2022-12-22 14:56 | Hospitalist Progress Note ---
Date of Service December 22, 2022 Assessment & Plan (1) Acute pancreatitis: (2) Atrial fibrillation: (3) CKD (chronic kidney disease) stage 3, GFR 30-59 ml/min: (4) CAD (coronary artery disease): (5) Hypothyroidism: (6) HTN (hypertension): Plan This is an 82yo F with a PMH of pancreatic cyst 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 Acute pancreatitis L flank radiating to midback intermittently x [address] abd/pelvis without contrast showed diffuse infiltration at the distal body and tail the pancreas consistent with pancreatitis CT also shows edema at the tail of the pancreas which may be related to pancreatitis, ruptured pancreatic tail cystic lesion or combination of both Lipase 476-> 316 today (outpatient lipase >700) GI following- Unable to do contrast CT given her anaphylactic reaction with prior contrast despite premedication and unable to do MRI due to her pacemaker. Plan for EGD/EUS on Sunday given increased size of distal pancreatic body cystic lesion, npo after Sunday night. Diet advanced. Goal INR 1.5 for procedure. Currently 1.7 - diony continue to hold coumadin until after the EGD/EUS on Sunday to let the INR drift down. Will use lovenox in the interim for her A fib. Paroxysmal A fib- Continue carvedilol, holding coumadin as above- anticoag plan as above. CHADS2 VASc score of at least 5. CKD III- Cr at baseline CAD- H/o CABG in 2005. Continue aspirin, beta sumi. Intolerant to statin Hypothyroidism- continue levothyroxine HTN- stable, continue amlodipine, carvedilol Mood disorder- Continue Zoloft, Xanax PRN DVT Ppx: Holding coumadin, will have lovenox instead until Sunday morning. Dispo: Pending EGD/EUS on Sunday per GI Patient seen in collaboration with Dr. Weber. Please see addendum. I spent a total of 75 minutes coordinating, documenting, and providing care for this patient excluding time spent in the performance of separately billed services. Admission and Anticipated Discharge Date Admission Date: December 21, 2022 Subjective Seen and examined at bedside. She feels much better since admission. Pain has improved significantly. GI was at bedside during my encounter- plan for EGD with EUS on Sunday. No fever, chills, N/V/CP, SOB. Patient is concerned about her somewhat demented who needs her at home. Review of Systems Review of Systems: All systems reviewed & are unremarkable except as noted in Subjective Physical Exam Physical Exam: General: Lying comfortably in bed, not in distress, on room air HEENT: EOMI, SHASHANK, MMM Chest: Clear breath sounds bilaterally, no wheezes or crackles CVS: Regular rate and rhythm, normal heart sounds, no murmur Abdomen: Soft, non tender, not distended, normal bowel sounds Neuro: Awake, alert, oriented, conversing well, non focal Extremities: No cyanosis, clubbing, trace edema Results & Data Results & Data Vital Signs (Past 12 Hours) Vital Signs Temp Pulse Resp BP Pulse Ox O2 Del Method 12/22/22 07:21 36.3 C L 73 16 157/92 H 93 Room Air Laboratory Results Short CBC 12/22/22 Range/Units 06:32 WBC 5.09 (4.8-10.8) K/ul Hgb 11.0 L (12.0-16.0) g/dl Hct 33.6 L (37.0-47.0) % Plt Count 190 (130-400) K/uL BMP 12/22/22 06:32 Sodium 141 Potassium 3.6 Chloride 108 H Carbon Dioxide 29 BUN 15 Creatinine 0.72 Glucose 117 H Calcium 8.6 Liver Function 12/22/22 Range/Units 06:32 Total Bilirubin 0.4 (0.2-1.0) mg/dl AST 11 L (13-39) U/L ALT 9 (7-52) U/L Alkaline Phosphatase 57 (34-104) U/L Albumin 3.0 L (3.4-5.0) gm/dl Urine 12/21/22 Range/Units 19:25 Urine Color Yellow Urine Appearance Clear (Clear) Urine pH 6.0 (4.5-7.5) Ur Specific [place] 1.010 (1.000-1.030) Urine Protein Negative (Negative) Urine Glucose (UA) Negative (Negative) Medications Administered Current Inpatient Medications Acetaminophen (Acetaminophen 325 Mg Tab) 650 mg PO Q4H PRN PRN Reason: pain/fever Stop: 01/20/23 15:44 Last Admin: 12/21/22 22:01 Dose: 650 mg Alprazolam (Alprazolam 0.25 Mg Tablet) 0.25 mg PO TID PRN PRN Reason: Anxiety Stop: 01/20/23 16:04 Amlodipine Besylate (Amlodipine Besylate 5 Mg Tab) 5 mg PO DAILY NICK Stop: 01/21/23 08:59 Last Admin: 12/22/22 09:29 Dose: 5 mg Aspirin (Aspirin 81 Mg Ectab) 81 mg PO QPM NICK Stop: 01/20/23 20:59 Last Admin: 12/21/22 20:51 Dose: 81 mg Calcium Carbonate (Calcium Carbonate 1250mg Tab) 1,250 mg PO DAILY NICK Stop: 01/21/23 08:59 Last Admin: 12/22/22 09:28 Dose: 1,250 mg Carvedilol (Carvedilol 25 Mg Tab) 25 mg PO QAM NICK Stop: 01/21/23 08:59 Last Admin: 12/22/22 09:28 Dose: 25 mg Carvedilol (Carvedilol 12.5 Mg Tab) 12.5 mg PO HS [facility] Stop: 01/20/23 20:59 Last Admin: 12/21/22 20:58 Dose: Not Given Dicyclomine HCl (Dicyclomine Hcl 10 Mg Cap) 10 mg PO QID PRN PRN Reason: Indigestion Stop: 01/20/23 16:04 Famotidine (Famotidine 20 Mg Tab) 20 mg PO BID PRN PRN Reason: Dyspepsia Stop: 01/20/23 16:04 Lactated Ringer's (Lr) 1,000 mls @ 100 mls/hr IV .Q10H NICK Stop: 01/20/23 13:59 Last Infusion: 12/22/22 12:05 Dose: Infused Isosorbide Mononitrate (Isosorbide [place] Extended Rel 60 Mg Tabcr) 60 mg PO HS NICK Stop: 01/20/23 20:59 Last Admin: 12/21/22 20:50 Dose: 60 mg Isosorbide Mononitrate (Isosorbide [place] Extended Rel 60 Mg Tabcr) 120 mg PO QAM NICK Stop: 01/21/23 08:59 Last Admin: 12/22/22 09:29 Dose: 120 mg Levothyroxine Sodium (Levothyroxine Sodium 50 Mcg Tablet) 50 mcg PO DAILYBB [facility] Stop: 01/21/23 06:29 Last Admin: 12/22/22 05:41 Dose: Not Given Morphine Sulfate (Morphine Sulfate 2 Mg/Ml [place]) 2 mg IV Q4H PRN PRN Reason: Severe Pain (Scale 7, 8, 9,10) Stop: 01/04/23 14:59 Ondansetron HCl (Ondansetron Inj 2 Mg/Ml 2 Ml Vial) 4 mg IV Q6H PRN PRN Reason: Nausea Stop: 01/20/23 15:44 Last Admin: 12/22/22 10:09 Dose: 4 mg Pantoprazole Sodium (Pantoprazole 40 Mg Tab) 40 mg PO DAILY [facility] Stop: 01/21/23 08:59 Last Admin: 12/22/22 09:28 Dose: 40 mg Pantoprazole Sodium (Pantoprazole 40 Mg Tab) 40 mg PO DAILY PRN PRN Reason: Acid Reflux Stop: 01/20/23 16:31 Polyethylene Glycol (Polyethylene (Miralax) 17 Gm Pack) 17 gm PO DAILY PRN PRN Reason: Constipation Stop: 01/20/23 15:44 Sertraline HCl (Sertraline Hcl 100 Mg Tablet) 100 mg PO DAILY [facility] Stop: 01/21/23 08:59 Last Admin: 12/22/22 09:28 Dose: 100 mg Vitamin D (Cholecalciferol 1,000 Units 25 Mcg Tab) 2,000 units PO QAM [facility] Stop: 01/21/23 08:59 Last Admin: 12/22/22 09:29 Dose: 2,000 units (4) CAD (coronary artery disease) Associated angina: with unspecified angina Coronary Disease-Associated Artery/Lesion type: unspecified vessel or lesion type [place] vs. transplanted heart: [place] heart Qualified Code(s): I25.119 - Atherosclerotic heart disease of [place] coronary artery with unspecified angina pectoris
[2022-12-22] MEDS: ENOXAPARIN INJ 40 MG/0.4 ML SYR SQ SCH (17:03)
[2022-12-22] MEDS: carvediloL 12.5 MG TAB PO SCH (21:26)
[2022-12-22] MEDS: ASPIRIN 81 MG ECTAB PO SCH (21:26)
[2022-12-22] MEDS: ACETAMINOPHEN 325 MG TAB PO PRN (21:26)
[2022-12-23] MEDS: ENOXAPARIN INJ 40 MG/0.4 ML SYR SQ SCH ×2 (05:37→16:29)
[2022-12-23] MEDS: LEVOTHYROXINE SODIUM 50 MCG TABLET PO SCH (05:37)
[2022-12-23 06:32] LABS: Hematocrit (blood only) 38.6 % (37.0-47.0); Hemoglobin 12.6 g/dl (12.0-16.0); Mean Corpuscular Hemoglobin 28.9 pg (25.0-34.0); Mean Corpuscular Hgb Conc 32.6 g/dL (32.0-36.0); Mean Corpuscular Volume 88.5 fL (80.0-100.0); Mean Platelet Volume 11.2 fL (9.4-12.4); Platelet Count 217 K/uL (130-400); RDW Coefficient of Variation 12.9 % (11.5-14.5); RDW Standard Deviation 42.1 fL (36.4-46.3); Red Blood Count 4.36 M/uL (4.20-5.40); White Blood Count 5.23 K/ul (4.8-10.8)
[2022-12-23 06:50] LABS: BUN Creatinine Ratio 16.5 (10-20); Calcium 9.3 mg/dl (8.6-10.3); Creatinine Clr Calc Pharmacy 53.8 ml/min; Est GFR (African American) 67.6 ml/min; Est GFR (Non-African American) 58.3 ml/min; Potassium 3.9 mmol/L (3.5-5.1)
[2022-12-23 06:52] LABS: INR 1.7 (0.9-1.1); Prothrombin Time 18.2 Seconds (9.0-12.0)
[2022-12-23] MEDS: CHOLECALCIFEROL 1,000 UNITS 25 MCG TAB PO SCH (08:46)
[2022-12-23] MEDS: carvediloL 25 MG TAB PO SCH (08:46)
[2022-12-23] MEDS: amLODIPine BESYLATE 5 MG TAB PO SCH (08:47)
[2022-12-23] MEDS: PANTOprazole 40 MG TAB PO SCH (08:48)
[2022-12-23] MEDS: SERTRALINE HCL 100 MG TABLET PO SCH (08:49)
[2022-12-23] MEDS: ISOSORBIDE MONO EXTENDED REL 60 MG TABCR PO SCH ×2 (08:49→21:35)
[2022-12-23] MEDS: CALCIUM CARBONATE 1250MG TAB PO SCH (08:51)
[2022-12-23] MEDS ORDERED: MAGNESIUM HYDROXIDE SUSP 30 ML UDC PO ONE (12:10)
[2022-12-23] MEDS: POLYETHYLENE (MIRALAX) 17 GM PACK PO SCH (12:42)
--- NOTE | 2022-12-23 14:44 | Hospitalist Progress Note ---
Date of Service December 23, 2022 Assessment & Plan (1) Acute pancreatitis: (2) Atrial fibrillation: (3) CKD (chronic kidney disease) stage 3, GFR 30-59 ml/min: (4) CAD (coronary artery disease): (5) Hypothyroidism: (6) HTN (hypertension): Plan This is an 82yo F with a PMH of pancreatic cyst 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 Acute pancreatitis L flank radiating to midback intermittently x [address] abd/pelvis without contrast showed diffuse infiltration at the distal body and tail the pancreas consistent with pancreatitis CT also shows edema at the tail of the pancreas which may be related to pancreatitis, ruptured pancreatic tail cystic lesion or combination of both Lipase 476-> 316 (outpatient lipase >700) GI following- Unable to do contrast CT given her anaphylactic reaction with prior contrast despite premedication and unable to do MRI due to her pacemaker. Plan for EGD/EUS on Sunday given increased size of distal pancreatic body cystic lesion, npo after Sunday night. Diet advanced. Goal INR 1.5 for procedure. Currently 1.7 - diony continue to hold coumadin until after the EGD/EUS on Sunday to let the INR drift down. Will use lovenox in the interim for her A fib. Paroxysmal A fib- Continue carvedilol, holding coumadin as above- anticoag plan as above. CHADS2 VASc score of at least 5. CKD III- Cr at baseline CAD- H/o CABG in 2005. Continue aspirin, beta sumi. Intolerant to statin Hypothyroidism- continue levothyroxine HTN- stable, continue amlodipine, carvedilol Mood disorder- Continue Zoloft, Xanax PRN DVT Ppx: Holding coumadin, will have lovenox instead until Sunday morning. Dispo: Pending EGD/EUS on Sunday per GI Please note the above document was generated using voice recognition software. It may contain grammatical, syntax or spelling errors. Any formal questions or concerns about the content, text or information contained within the body of this dictation should be directly addressed to the provider for clarification Admission and Anticipated Discharge Date Admission Date: December 21, 2022 Subjective Patient seen and examined at bedside. She is lying in the bed comfortably. Denies any abdominal pain or discomfort. Reports that she has not had a bowel movement since admission. Review of Systems Review of Systems: All systems reviewed & are unremarkable except as noted in Subjective Physical Exam Physical Exam: General: Lying comfortably in bed, not in distress, on room air HEENT: EOMI, SHASHANK, MMM Chest: Clear breath sounds bilaterally, no wheezes or crackles CVS: Regular rate and rhythm, normal heart sounds, no murmur Abdomen: Soft, non tender, not distended, normal bowel sounds Neuro: Awake, alert, oriented, conversing well, non focal Extremities: No cyanosis, clubbing, trace edema Results & Data Results & Data Vital Signs (Past 12 Hours) Vital Signs Temp Pulse Resp BP Pulse Ox O2 Del Method 12/23/22 08:09 69 12/23/22 07:39 36.5 C 60 16 151/82 H 95 Room Air 12/23/22 07:29 Room Air Laboratory Results Laboratory Results WBC 5.23 K/ul (4.8-10.8) 12/23/22 05:47 RBC 4.36 M/uL (4.20-5.40) 12/23/22 05:47 Hgb 12.6 g/dl (12.0-16.0) 12/23/22 05:47 Hct 38.6 % (37.0-47.0) 12/23/22 05:47 MCV 88.5 fL (80.0-100.0) 12/23/22 05:47 MCH 28.9 pg (25.0-34.0) 12/23/22 05:47 MCHC 32.6 g/dL (32.0-36.0) 12/23/22 05:47 RDW Std Deviation 42.1 fL (36.4-46.3) 12/23/22 05:47 RDW Coeff of [place] 12.9 % (11.5-14.5) 12/23/22 05:47 Plt Count 217 K/uL (130-400) 12/23/22 05:47 MPV 11.2 fL (9.4-12.4) 12/23/22 05:47 Immature Gran % (Auto) 0.5 % 12/21/22 12:28 Neut % (Auto) 67.9 % 12/21/22 12:28 Lymph % (Auto) 18.3 % 12/21/22 12:28 [place] % (Auto) 10.0 % 12/21/22 12:28 Eos % (Auto) 2.7 % 12/21/22 12:28 Baso % (Auto) 0.6 % 12/21/22 12:28 Neut # (Auto) 4.27 K/uL (1.40-6.50) 12/21/22 12:28 Lymph # (Auto) 1.15 K/uL (1.2-3.4) L 12/21/22 12:28 [place] # (Auto) 0.63 K/uL (0.11-0.59) H 12/21/22 12:28 Eos # (Auto) 0.17 K/uL (0-0.50) 12/21/22 12:28 Baso # (Auto) 0.04 K/uL (0-0.2) 12/21/22 12:28 Immature Gran # (Auto) 0.03 K/uL (0.01-0.20) 12/21/22 12:28 PT 18.2 Seconds (9.0-12.0) H 12/23/22 05:47 INR 1.7 (0.9-1.1) H 12/23/22 05:47 Sodium 141 mmol/L (136-145) 12/23/22 05:47 Potassium 3.9 mmol/L (3.5-5.1) 12/23/22 05:47 Chloride 105 mmol/L (98-107) 12/23/22 05:47 Carbon Dioxide 31 mmol/L (21-32) 12/23/22 05:47 Anion Gap 5 (3-11) 12/23/22 05:47 BUN 15 mg/dl (6-23) 12/23/22 05:47 Creatinine 0.91 mg/dl (0.6-1.2) 12/23/22 05:47 Est Cr Clr Drug Dosing 53.8 ml/min 12/23/22 05:47 Est GFR ( Amer) 67.6 ml/min 12/23/22 05:47 Est GFR (Non-Af Amer) 58.3 ml/min 12/23/22 05:47 BUN/Creatinine Ratio 16.5 (10-20) 12/23/22 05:47 Glucose 137 mg/dl (70-99(Fasting)) H 12/23/22 05:47 Calcium 9.3 mg/dl (8.6-10.3) 12/23/22 05:47 Total Bilirubin 0.4 mg/dl (0.2-1.0) 12/22/22 06:32 AST 11 U/L (13-39) L 12/22/22 06:32 ALT 9 U/L (7-52) 12/22/22 06:32 Alkaline Phosphatase 57 U/L (34-104) 12/22/22 06:32 Total Protein 5.6 gm/dl (6.0-8.3) L 12/22/22 06:32 Albumin 3.0 gm/dl (3.4-5.0) L 12/22/22 06:32 Globulin 2.6 gm/dl (2.5-4.0) 12/22/22 06:32 Albumin/Globulin Ratio 1.2 (0.9-2) 12/22/22 06:32 Lipase 454 U/L (11-82) H 12/23/22 05:47 Urine Color Yellow 12/21/22 19:25 Urine Appearance Clear (Clear) 12/21/22 19:25 Urine pH 6.0 (4.5-7.5) 12/21/22 19:25 Ur Specific [place] 1.010 (1.000-1.030) 12/21/22 19:25 Urine Protein Negative (Negative) 12/21/22 19:25 Urine Glucose (UA) Negative (Negative) 12/21/22 19:25 Urine Ketones Negative (Negative) 12/21/22 19:25 Urine Blood Negative (Negative) 12/21/22 19:25 Urine Nitrite Negative (Negative) 12/21/22 19:25 Urine Bilirubin Negative (Negative) 12/21/22 19:25 Urine Urobilinogen Negative (Negative) 12/21/22 19:25 Ur Leukocyte Esterase Negative (Negative) 12/21/22 19:25 SARS-CoV-2, RNA, NAAT NEGATIVE (NEGATIVE) 12/21/22 12:29 (4) CAD (coronary artery disease) Associated angina: with unspecified angina Coronary Disease-Associated Artery/Lesion type: unspecified vessel or lesion type [place] vs. transplanted heart: [place] heart Qualified Code(s): I25.119 - Atherosclerotic heart disease of [place] coronary artery with unspecified angina pectoris
[2022-12-23] MEDS: ACETAMINOPHEN 325 MG TAB PO PRN (21:35)
[2022-12-23] MEDS: carvediloL 12.5 MG TAB PO SCH (21:35)
[2022-12-23] MEDS: ASPIRIN 81 MG ECTAB PO SCH (21:36)
[2022-12-24] MEDS: LEVOTHYROXINE SODIUM 50 MCG TABLET PO SCH (05:58)
[2022-12-24] MEDS: ENOXAPARIN INJ 40 MG/0.4 ML SYR SQ SCH (05:58)
[2022-12-24 07:41] LABS: BUN Creatinine Ratio 25.3 (10-20); Calcium 9.2 mg/dl (8.6-10.3); Creatinine Clr Calc Pharmacy 56.3 ml/min; Est GFR (African American) 71.4 ml/min; Est GFR (Non-African American) 61.6 ml/min; Potassium 4.4 mmol/L (3.5-5.1)
[2022-12-24 07:43] LABS: INR 1.6 (0.9-1.1); Prothrombin Time 16.7 Seconds (9.0-12.0)
[2022-12-24 07:52] LABS: Basophils # (auto) 0.03 K/uL (0-0.2); Basophils % (auto) 0.6 %; Eosinophils # (auto) 0.17 K/uL (0-0.50); Eosinophils % (auto) 3.1 %; Hematocrit (blood only) 37.1 % (37.0-47.0); Hemoglobin 12.2 g/dl (12.0-16.0); Immature Granulocytes # (auto) 0.03 K/uL (0.01-0.20); Immature Granulocytes % (auto) 0.6 %; Lymphocytes # (auto) 1.35 K/uL (1.2-3.4); Lymphocytes % (auto) 24.8 %; Mean Corpuscular Hemoglobin 28.5 pg (25.0-34.0); Mean Corpuscular Hgb Conc 32.9 g/dL (32.0-36.0); Mean Corpuscular Volume 86.7 fL (80.0-100.0); Mean Platelet Volume 11.7 fL (9.4-12.4); Monocytes # (auto) 0.59 K/uL (0.11-0.59); Monocytes % (auto) 10.8 %; Neutrophils # (auto) 3.27 K/uL (1.40-6.50); Neutrophils % (auto) 60.1 %; Platelet Count 225 K/uL (130-400); RDW Coefficient of Variation 13.2 % (11.5-14.5); RDW Standard Deviation 41.4 fL (36.4-46.3); Red Blood Count 4.28 M/uL (4.20-5.40); White Blood Count 5.44 K/ul (4.8-10.8)
[2022-12-24] MEDS: CALCIUM CARBONATE 1250MG TAB PO SCH (09:17)
[2022-12-24] MEDS: CHOLECALCIFEROL 1,000 UNITS 25 MCG TAB PO SCH (09:17)
[2022-12-24] MEDS: POLYETHYLENE (MIRALAX) 17 GM PACK PO SCH (09:18)
[2022-12-24] MEDS: ISOSORBIDE MONO EXTENDED REL 60 MG TABCR PO SCH ×2 (09:19→19:47)
[2022-12-24] MEDS: SERTRALINE HCL 100 MG TABLET PO SCH (09:19)
[2022-12-24] MEDS: PANTOprazole 40 MG TAB PO SCH (09:19)
[2022-12-24] MEDS: amLODIPine BESYLATE 5 MG TAB PO SCH (09:19)
[2022-12-24] MEDS: carvediloL 25 MG TAB PO SCH (09:20)
--- NOTE | 2022-12-24 12:03 | Hospitalist Progress Note ---
Date of Service December 24, 2022 Assessment & Plan (1) Acute pancreatitis: (2) Atrial fibrillation: (3) CKD (chronic kidney disease) stage 3, GFR 30-59 ml/min: (4) CAD (coronary artery disease): (5) Hypothyroidism: (6) HTN (hypertension): Plan This is an 82yo F with a PMH of pancreatic cyst 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 Acute pancreatitis L flank radiating to midback intermittently x [address] abd/pelvis without contrast showed diffuse infiltration at the distal body and tail the pancreas consistent with pancreatitis CT also shows edema at the tail of the pancreas which may be related to pancreatitis, ruptured pancreatic tail cystic lesion or combination of both Lipase 476-> 316 (outpatient lipase >700) GI following- Unable to do contrast CT given her anaphylactic reaction with prior contrast despite premedication and unable to do MRI due to her pacemaker. Plan for EGD/EUS on Sunday given increased size of distal pancreatic body cystic lesion, npo after Sunday night. Diet advanced. Goal INR 1.5 for procedure. Currently 1.6 - diony continue to hold coumadin until after the EGD/EUS on Sunday to let the INR drift down. lovenox kept on hold Paroxysmal A fib- Continue carvedilol, holding coumadin as above- anticoag plan as above. CHADS2 VASc score of at least 5. CKD III- Cr at baseline CAD- H/o CABG in 2005. Continue aspirin, beta sumi. Intolerant to statin Hypothyroidism- continue levothyroxine HTN- stable, continue amlodipine, carvedilol Mood disorder- Continue Zoloft, Xanax PRN DVT Ppx: Holding coumadin, will have lovenox instead until Sunday morning. Dispo: Pending EGD/EUS on Sunday per GI Please note the above document was generated using voice recognition software. It may contain grammatical, syntax or spelling errors. Any formal questions or concerns about the content, text or information contained within the body of this dictation should be directly addressed to the provider for clarification Admission and Anticipated Discharge Date Admission Date: December 21, 2022 Subjective Patient seen and examined at bedside. She is lying in the bed comfortably; reports bowel movement. Denies abdominal pain. Review of Systems Review of Systems: All systems reviewed & are unremarkable except as noted in Subjective Physical Exam Physical Exam: General: Lying comfortably in bed, not in distress, on room air HEENT: EOMI, SHASHANK, MMM Chest: Clear breath sounds bilaterally, no wheezes or crackles CVS: Regular rate and rhythm, normal heart sounds, no murmur Abdomen: Soft, non tender, not distended, normal bowel sounds Neuro: Awake, alert, oriented, conversing well, non focal Extremities: No cyanosis, clubbing, trace edema Results & Data Results & Data Vital Signs (Past 12 Hours) Vital Signs Temp Pulse Resp BP Pulse Ox O2 Del Method 12/24/22 09:16 62 145/78 H 12/24/22 07:49 Room Air 12/24/22 07:45 36.8 C 66 18 154/96 H 95 Room Air Laboratory Results Laboratory Results WBC 5.44 K/ul (4.8-10.8) 12/24/22 06:31 RBC 4.28 M/uL (4.20-5.40) 12/24/22 06:31 Hgb 12.2 g/dl (12.0-16.0) 12/24/22 06:31 Hct 37.1 % (37.0-47.0) 12/24/22 06:31 MCV 86.7 fL (80.0-100.0) 12/24/22 06:31 MCH 28.5 pg (25.0-34.0) 12/24/22 06:31 MCHC 32.9 g/dL (32.0-36.0) 12/24/22 06:31 RDW Std Deviation 41.4 fL (36.4-46.3) 12/24/22 06:31 RDW Coeff of [place] 13.2 % (11.5-14.5) 12/24/22 06:31 Plt Count 225 K/uL (130-400) 12/24/22 06:31 MPV 11.7 fL (9.4-12.4) 12/24/22 06:31 Immature Gran % (Auto) 0.6 % 12/24/22 06:31 Neut % (Auto) 60.1 % 12/24/22 06:31 Lymph % (Auto) 24.8 % 12/24/22 06:31 [place] % (Auto) 10.8 % 12/24/22 06:31 Eos % (Auto) 3.1 % 12/24/22 06:31 Baso % (Auto) 0.6 % 12/24/22 06:31 Neut # (Auto) 3.27 K/uL (1.40-6.50) 12/24/22 06:31 Lymph # (Auto) 1.35 K/uL (1.2-3.4) 12/24/22 06:31 [place] # (Auto) 0.59 K/uL (0.11-0.59) 12/24/22 06:31 Eos # (Auto) 0.17 K/uL (0-0.50) 12/24/22 06:31 Baso # (Auto) 0.03 K/uL (0-0.2) 12/24/22 06:31 Immature Gran # (Auto) 0.03 K/uL (0.01-0.20) 12/24/22 06:31 PT 16.7 Seconds (9.0-12.0) H 12/24/22 06:31 INR 1.6 (0.9-1.1) H 12/24/22 06:31 Sodium 140 mmol/L (136-145) 12/24/22 06:31 Potassium 4.4 mmol/L (3.5-5.1) 12/24/22 06:31 Chloride 105 mmol/L (98-107) 12/24/22 06:31 Carbon Dioxide 29 mmol/L (21-32) 12/24/22 06:31 Anion Gap 6 (3-11) 12/24/22 06:31 BUN 22 mg/dl (6-23) 12/24/22 06:31 Creatinine 0.87 mg/dl (0.6-1.2) 12/24/22 06:31 Est Cr Clr Drug Dosing 56.3 ml/min 12/24/22 06:31 Est GFR ( Amer) 71.4 ml/min 12/24/22 06:31 Est GFR (Non-Af Amer) 61.6 ml/min 12/24/22 06:31 BUN/Creatinine Ratio 25.3 (10-20) H 12/24/22 06:31 Glucose 140 mg/dl (70-99(Fasting)) H 12/24/22 06:31 Calcium 9.2 mg/dl (8.6-10.3) 12/24/22 06:31 Total Bilirubin 0.4 mg/dl (0.2-1.0) 12/22/22 06:32 AST 11 U/L (13-39) L 12/22/22 06:32 ALT 9 U/L (7-52) 12/22/22 06:32 Alkaline Phosphatase 57 U/L (34-104) 12/22/22 06:32 Total Protein 5.6 gm/dl (6.0-8.3) L 12/22/22 06:32 Albumin 3.0 gm/dl (3.4-5.0) L 12/22/22 06:32 Globulin 2.6 gm/dl (2.5-4.0) 12/22/22 06:32 Albumin/Globulin Ratio 1.2 (0.9-2) 12/22/22 06:32 Lipase 454 U/L (11-82) H 12/23/22 05:47 Urine Color Yellow 12/21/22 19:25 Urine Appearance Clear (Clear) 12/21/22 19:25 Urine pH 6.0 (4.5-7.5) 12/21/22 19:25 Ur Specific [place] 1.010 (1.000-1.030) 12/21/22 19:25 Urine Protein Negative (Negative) 12/21/22 19:25 Urine Glucose (UA) Negative (Negative) 12/21/22 19:25 Urine Ketones Negative (Negative) 12/21/22 19:25 Urine Blood Negative (Negative) 12/21/22 19:25 Urine Nitrite Negative (Negative) 12/21/22 19:25 Urine Bilirubin Negative (Negative) 12/21/22 19:25 Urine Urobilinogen Negative (Negative) 12/21/22 19:25 Ur Leukocyte Esterase Negative (Negative) 12/21/22 19:25 SARS-CoV-2, RNA, NAAT NEGATIVE (NEGATIVE) 12/21/22 12:29 (4) CAD (coronary artery disease) Associated angina: with unspecified angina Coronary Disease-Associated Artery/Lesion type: unspecified vessel or lesion type [place] vs. transplanted heart: [place] heart Qualified Code(s): I25.119 - Atherosclerotic heart disease of [place] coronary artery with unspecified angina pectoris
--- NOTE | 2022-12-24 12:24 | Anesthesiology Consultation ---
Date of Service December 24, 2022 Assessment & Plan Chart Review Chart Review: Acceptable Risk for Surgery and Patient NOT seen in Pre Admission Testing Consults Requested none ASA ASA4 Proposed Anesthesia Anesthesia Type: General History Surgery Operation Date: 12/21/22 18:00 Proposed Procedures p Esophagogastroduodenoscopy Dr Dora Nayak MD Operation Date: 12/22/22 17:00 Proposed Procedures p Esophagogastroduodenoscopy Dr Dora Nayak MD Operation Date: 12/25/22 08:20 Proposed Procedures p Endoscopic Ultrasonography Upper - Magdaleno Wiley DO s Endoscopic Retrograde Cholangiopancreato - Magdaleno Wiley DO Height/Weight Height: 5 ft 7 in Weight: 89.5 kg Allergies Allergy/AdvReac Type Severity Reaction Status Date / Time Iodinated Contrast Media Allergy Severe Hives, Verified 11/09/21 18:38 anaphylaxis ether Allergy Unknown Unknown Verified 11/09/21 18:38 prednisone AdvReac Severe GI pain > Verified 11/09/21 18:38 pancreatitis rosiglitazone AdvReac Severe Blood clots Verified 11/09/21 18:38 atorvastatin [From Lipitor] AdvReac Intermediate Muscle Pain Verified 11/09/21 1 8:38 ezetimibe [From Zetia] AdvReac Intermediate Muscle Pain Verified 11/09/21 18:38 lisinopril AdvReac Intermediate Cough Verified 11/09/21 18:38 losartan AdvReac Intermediate N/V Verified 11/09/21 18:38 ranitidine AdvReac Intermediate N/V, Verified 11/09/21 18:38 achiness rosuvastatin [From Crestor] AdvReac Intermediate Muscle Pain Verified 11/09/21 18:38 Medications Home Medications Medication Instructions Recorded Confirmed Last Taken aspirin 81 mg tablet,delayed 81 mg PO QPM 03/19/18 12/21/22 2 Days Ago release ~12/19/22 isosorbide mononitrate 60 mg See Rx Instructions .Route .COMPLEX 03/19/18 12/21/22 12/21/22 tablet,extended release 24 hr levothyroxine 50 mcg tablet 50 mcg PO QAM 03/19/18 12/21/22 12/21/22 nitroglycerin 0.4 mg sublingual 1 tab sublingual UD PRN Chest Pain 03/19/18 12/21/22 2 Days Ago tablet ~12/19/22 carvedilol phosphate 40 mg 40 mg PO QAM 11/02/18 12/21/22 12/21/22 capsule,ext.[id number] multiphase (Coreg CR) carvedilol phosphate 20 mg 20 mg PO HS 05/01/19 12/21/22 12/21/22 capsule,ext.[id number] multiphase omeprazole 20 mg capsule,delayed 20 mg PO DAILY PRN Acid Reflux 05/07/20 12/21/22 12/20/22 release alprazolam 0.25 mg tablet (Xanax) 0.25 mg PO TID PRN Anxiety 06/18/20 12/21/22 Unknown cholecalciferol (vitamin D3) 50 2,000 unit PO QAM 06/18/20 12/21/22 12/21/22 mcg (2,000 unit) tablet (Vitamin D3) dicyclomine 10 mg capsule 10 mg PO QID PRN Indigestion 06/18/20 12/21/22 2 Days Ago ~12/19/22 acetaminophen 500 mg tablet 1,000 mg PO Q6H PRN knee pain 02/24/21 12/21/22 1 Week Ago (Tylenol Extra Strength) ~12/14/22 warfarin 2 mg tablet 5 mg PO PM 02/24/21 12/21/22 12/20/22 calcium carbonate 600 mg calcium 600 mg PO DAILY 11/09/21 12/21/22 12/21/22 (1,500 mg) tablet (Calcium) amlodipine 5 mg tablet 5 mg PO DAILY 12/21/22 12/21/22 Unknown cholestyramine (with sugar) 4 gram 1 ea PO Q OTHER DAY 12/21/22 12/21/22 2 Days Ago powder for susp in a packet ~12/19/22 famotidine 20 mg tablet 20 mg PO BID PRN Dyspepsia 12/21/22 12/21/22 Unknown sertraline 100 mg tablet 100 mg PO DAILY 12/21/22 12/21/22 Unknown Active Medications Generic Name Dose Route Start Last Admin Trade Name Freq PRN Reason Stop Dose Admin Acetaminophen 650 mg 12/21/22 15:45 12/23/22 21:35 Acetaminophen 325 Mg Tab PO 01/20/23 15:44 650 mg Q4H PRN Administration pain/fever Amlodipine Besylate 5 mg 12/22/22 09:00 12/24/22 09:19 Amlodipine Besylate 5 Mg Tab PO 01/21/23 08:59 5 mg DAILY NICK Administration Aspirin 81 mg 12/21/22 21:00 12/23/22 21:36 Aspirin 81 Mg Ectab PO 01/20/23 20:59 81 mg QPM NICK Administration Calcium Carbonate 1,250 mg 12/22/22 09:00 12/24/22 09:17 Calcium Carbonate 1250mg Tab PO 01/21/23 08:59 Not Given DAILY NICK Carvedilol 25 mg 12/22/22 09:00 12/24/22 09:20 Carvedilol 25 Mg Tab PO 01/21/23 08:59 25 mg QAM NICK Administration Carvedilol 12.5 mg 12/21/22 21:00 12/23/22 21:35 Carvedilol 12.5 Mg Tab PO 01/20/23 20:59 12.5 mg HS NICK Administration Enoxaparin Sodium 40 mg 12/22/22 17:00 12/24/22 05:58 Enoxaparin Inj 40 Mg/0.4 Ml Syr SQ 01/21/23 16:59 40 mg Q12H NICK Administration Isosorbide Mononitrate 60 mg 12/21/22 21:00 12/23/22 21:35 Isosorbide [place] Extended Rel 60 Mg Tabcr PO 01/20/23 20:59 60 mg HS NICK Administration Isosorbide Mononitrate 120 mg 12/22/22 09:00 12/24/22 09:19 Isosorbide [place] Extended Rel 60 Mg Tabcr PO 01/21/23 08:59 120 mg QAM NICK Administration Levothyroxine Sodium 50 mcg 12/22/22 06:30 12/24/22 05:58 Levothyroxine Sodium 50 Mcg Tablet PO 01/21/23 06:29 50 mcg DAILYBB NICK Administration Ondansetron HCl 4 mg 12/21/22 15:45 12/22/22 10:09 Ondansetron Inj 2 Mg/Ml 2 Ml Vial IV 01/20/23 15:44 4 mg Q6H PRN Administration Nausea Pantoprazole Sodium 40 mg 12/22/22 09:00 12/24/22 09:19 Pantoprazole 40 Mg Tab PO 01/21/23 08:59 40 mg DAILY NIKC Administration Polyethylene Glycol 17 gm 12/23/22 12:15 12/24/22 09:18 Polyethylene (Miralax) 17 Gm Pack PO 01/22/23 12:14 17 gm DAILY NICK Administration Sertraline HCl 100 mg 12/22/22 09:00 12/24/22 09:19 Sertraline Hcl 100 Mg Tablet PO 01/21/23 08:59 100 mg DAILY NICK Administration Vitamin D 2,000 units 12/22/22 09:00 12/24/22 09:17 Cholecalciferol 1,000 Units 25 Mcg Tab PO 01/21/23 08:59 Not Given QAM NICK Past Medical History Medical History CAD (coronary artery disease) CABG x5 in 2005 in [place] with BROWN to LAD, SVG to diagonal, SVG to OM, SVG to RPDA, and SVG to the distal RCA, PCI x3 Carotid artery stenosis LICA/FITZ <50% stenosis, Right subclavian stenosis vs. occlusion with abnor mal flow noted in vertebral artery per 08/2019 carotid duplex Chronic back pain DVT (deep venous thrombosis) Dyslipidemia GERD (gastroesophageal reflux disease) HTN (hypertension) Hypothyroidism IPMN (intraductal papillary mucinous neoplasm) Osteoarthritis Pacemaker 08/03 [facility], last pacer check 01/2020 Paroxysmal atrial fibrillation Pulmonary embolism remote years ago Exercise / Class Metabolic Activity III < 4 Walking/Shop/Light housework Past Family History Family History Mother Stroke Past Surgical History Surgical History H/O arthroscopy of knee H/O arthroscopy of shoulder H/O parathyroidectomy History of hysterectomy Hx of adenoidectomy Hx of appendectomy Hx of cataract surgery Hx of cholecystectomy Hx of hemorrhoidectomy Hx of tonsillectomy Pacemaker placement S/P BSO (bilateral salpingo-oophorectomy) S/P CABG x 3 CABG x5 in 2005 in [place] with BROWN to LAD, SVG to diagonal, SVG to OM, SVG to RPDA, and SVG to the distal RCA Past Anesthesia History No Hx of Anesthesia Complications and No Family Hx of Anesthesia Complications History of PONV No Hx of PONV and No Hx of Motion Sickness Social History Smoking Status: Never smoker Do You Dip or Chew Tobacco: No Hx Alcohol Use: No Hx Substance Use: No substance use type: does not use Physical Exam Vital Signs Last Vital Signs Temp 36.8 C 12/24/22 07:45 Pulse 62 12/24/22 09:16 Resp 18 12/24/22 07:45 BP 145/78 H 12/24/22 09:16 Pulse Ox 95 12/24/22 07:45 O2 Del Method Room Air 12/24/22 07:49 Testing Laboratory Results 12/24/22 06:31 12/24/22 06:31 PT 16.7 Seconds (9.0-12.0) H 12/24/22 06:31 INR 1.6 (0.9-1.1) H 12/24/22 06:31 Urine Color Yellow 12/21/22 19:25 Urine Appearance Clear (Clear) 12/21/22 19:25 Urine pH 6.0 (4.5-7.5) 12/21/22 19:25 Ur Specific [place] 1.010 (1.000-1.030) 12/21/22 19:25 Urine Protein Negative (Negative) 12/21/22 19:25 Urine Glucose (UA) Negative (Negative) 12/21/22 19:25 Urine Ketones Negative (Negative) 12/21/22 19:25 Urine Nitrite Negative (Negative) 12/21/22 19:25 Ur Leukocyte Esterase Negative (Negative) 12/21/22 19:25 Electrocardiogram Date: 11/09/21 A Paced rhythm @ 90 w/ prolonged AV conduction; ST & T wave abnl;prolonged QT;? infer. infarct ,age ? Echocardiogram Date: 06/19/20 EF: 55% LV Function: normal RWMA: + none and + hypokinetic (subtle HK of inferior and posterior villa @ base) Other Findings: + LVH (mild) and + diastolic dysfunction (Grade 1) Valvular Disease: + no significant valvular disease
[2022-12-24] MEDS: ASPIRIN 81 MG ECTAB PO SCH (19:47)
[2022-12-24] MEDS: carvediloL 12.5 MG TAB PO SCH (19:47)
[2022-12-25] MEDS ORDERED: CIPROFLOXACIN / D5W 400 MG/200 ML BAG IV SCH (06:00)
[2022-12-25] MEDS: LEVOTHYROXINE SODIUM 50 MCG TABLET PO SCH (06:09)
[2022-12-25 06:37] LABS: INR 1.4 (0.9-1.1); Prothrombin Time 15.5 Seconds (9.0-12.0)
[2022-12-25] MEDS ORDERED: fentaNYL citrate PF 100 MCG/2 ML VIAL ONE ×2 (07:25→07:51)
--- NOTE | 2022-12-25 08:15 | History & Physical Bridge Note ---
Date of Service December 25, 2022 History & Physical Bridge Note I have examined the patient, reviewed the History & Physical and in the interval since the performance of the History & Physical I have noted the following changes of clinical significance: no changes noted. Patient presented with abdominal discomfort and has suboptimal imaging as she is unable to tolerate IV contrast with CT nor undergo MRI due to her prior pacemaker. EUS was requested by my partner to further evaluate for evidence of pancreatic changes. We discussed the risks and benefits to include bleeding infection perforation pain and need for follow-up studies.
--- NOTE | 2022-12-25 08:45 | GI REPORT ---
Patient Name: Milena Lozoya Procedure Date: 12/25/2022 8:26 AM Date of : 1940 Admit Type: Inpatient Age: 82 Gender: Female Attending MD: Magdaleno Wiley DO, Procedure: Upper GI endoscopy Providers: Magdaleno Wiley DO Referring MD: Shonda Oseguera Md Indications: Epigastric abdominal pain, Abnormal CT of the GI tract Medicines: Monitored Anesthesia Care Complications: No immediate complications. Estimated blood loss: Minimal. Estimated Blood Loss: Estimated blood loss was minimal. Procedure: Pre-Anesthesia Assessment: - Prior to the procedure, a History and Physical was performed, and patient medications, allergies and sensitivities were reviewed. The patient's tolerance of previous anesthesia was reviewed. - The risks and benefits of the procedure and the sedation options and risks were discussed with the patient. All questions were answered and informed consent was obtained. - Patient identification and proposed procedure were verified prior to the procedure by the physician, the nurse and the joint setter. The procedure was verified in the procedure room. - Pre-procedure physical examination revealed no contraindications to sedation. - ASA Grade Assessment: IV - A patient with severe systemic disease that is a constant threat to life. - After reviewing the risks and benefits, the patient was deemed in satisfactory condition to undergo the procedure. - The anesthesia plan was to use monitored anesthesia care (MAC). - Immediately prior to administration of medications, the patient was re-assessed for adequacy to receive sedatives. - The heart rate, respiratory rate, oxygen saturations, blood pressure, adequacy of pulmonary ventilation, and response to care were monitored throughout the procedure. - The physical status of the patient was re-assessed after the procedure. After obtaining informed consent, the endoscope was passed under direct vision. Throughout the procedure, the patient's blood pressure, pulse, and oxygen saturations were monitored continuously. The Endoscope was introduced through the mouth, and advanced to the third part of duodenum. The upper GI endoscopy was accomplished without difficulty. The patient tolerated the procedure well. Findings: The upper third of the esophagus and middle third of the esophagus were normal. The Z-line was irregular and was found 38 cm from the incisors. Biopsies were taken with a cold forceps for histology. The pathology specimen was placed into Bottle A. Estimated blood loss was minimal. A small hiatal hernia was found. The proximal extent of the gastric folds (end of tubular esophagus) was 40 cm from the incisors. The hiatal narrowing was 38 cm from the incisors. The Z-line was 38 cm from the incisors. The gastric fundus, gastric body, incisura and gastric antrum were normal. The examined duodenum was normal. Impression: - Normal upper third of esophagus and middle third of esophagus. - Z-line irregular, 38 cm from the incisors. Biopsied. - Small hiatal hernia. - Normal gastric fundus, gastric body, incisura and antrum. - Normal examined duodenum. Recommendation: - Perform an upper endoscopic ultrasound (UEUS) today. - Await pathology results. Magdaleno Wiley D.O. Magdaleno Wiley, 12/25/2022 8:45:07 AM This report has been signed electronically. Note Initiated On: 12/25/2022 8:26 AM Number of Addenda: 0 I attest to the content of the Intraoperative Record and orders documented therein, exceptions below {[id number]}
[2022-12-25] MEDS ORDERED: ATROPINE SULFATE 0.1 MG/ML 10ML SYR IV PRN (08:55)
[2022-12-25] MEDS ORDERED: HYDROmorphone INJ 1 MG/ML SYRINGE IV PRN (08:55)
[2022-12-25] MEDS ORDERED: PROMETHAZINE HCL 12.5 MG in SODIUM CHLORIDE 0.9% 50 ML IV PRN (08:55)
[2022-12-25] MEDS ORDERED: ONDANSETRON INJ 2 MG/ML 2 ML VIAL IV PRN (08:55)
[2022-12-25] MEDS ORDERED: fentaNYL citrate PF 100 MCG/2 ML VIAL IV PRN (08:55)
[2022-12-25] MEDS ORDERED: ePHEDrine sulfate 50 MG/ML AMP IV PRN (08:55)
[2022-12-25] MEDS ORDERED: LIDOCAINE 2% 2 ML VIAL/AMP(20MG/ML) INFIL ONE (09:16)
[2022-12-25] MEDS ORDERED: PROPOFOL IV EMULSION 10 MG/ML 20 ML VIAL IV ONE (09:16)
--- NOTE | 2022-12-25 09:19 | Communication Note ---
Date of Service: December 25, 2022 The patient underwent endoscopic ultrasound patient morning. She was found to have an irregular Z-line consistent with short segment Winter's esophagus. The patient does have what appears to be a pancreatic mass within the pancreatic duct causing upstream dilation of the pancreatic duct. We did obtain a sample from the pancreatic mass in addition to one of the cysts. Recommendations Advance diet as tolerated Ciprofloxacin twice daily for 5 days Pending cytology results patient may need to see a medical and surgical oncologist Please call with any additional questions or concerns
--- NOTE | 2022-12-25 09:36 | GI REPORT ---
Patient Name: Milena Lozoya Procedure Date: 12/25/2022 8:26 AM Date of : 1940 Admit Type: Inpatient Age: 82 Gender: Female Attending MD: Magdaleno Wiley DO, Procedure: Upper EUS Providers: Magdaleno Wiley DO Referring MD: Shonda Oseguera Md, William Greco Md Indications: Intraductal papillary mucinous neoplasm (IPMN) Medicines: Monitored Anesthesia Care Complications: No immediate complications. Estimated blood loss: Minimal. Estimated Blood Loss: Estimated blood loss was minimal. Procedure: Pre-Anesthesia Assessment: - Prior to the procedure, a History and Physical was performed, and patient medications, allergies and sensitivities were reviewed. The patient's tolerance of previous anesthesia was reviewed. - The risks and benefits of the procedure and the sedation options and risks were discussed with the patient. All questions were answered and informed consent was obtained. - Patient identification and proposed procedure were verified prior to the procedure by the physician, the nurse and the mannequin molder. The procedure was verified in the procedure room. - Pre-procedure physical examination revealed no contraindications to sedation. - ASA Grade Assessment: IV - A patient with severe systemic disease that is a constant threat to life. - After reviewing the risks and benefits, the patient was deemed in satisfactory condition to undergo the procedure. - The anesthesia plan was to use monitored anesthesia care (MAC). - Immediately prior to administration of medications, the patient was re-assessed for adequacy to receive sedatives. - The heart rate, respiratory rate, oxygen saturations, blood pressure, adequacy of pulmonary ventilation, and response to care were monitored throughout the procedure. - The physical status of the patient was re-assessed after the procedure. After obtaining informed consent, the endoscope was passed under direct vision. Throughout the procedure, the patient's blood pressure, pulse, and oxygen saturations were monitored continuously. The scope was introduced through the mouth, and advanced to the third part of duodenum. The upper EUS was accomplished without difficulty. The patient tolerated the procedure well. Findings: ENDOSONOGRAPHIC FINDING: : There was no sign of significant endosonographic abnormality in the ampulla. No masses were identified. There was abnormal echogenicity in the visualized portion of the liver. This area was hyperechoic. No lymphadenopathy seen. There was no sign of significant endosonographic abnormality in the common bile duct. The maximum diameter of the duct was 5 mm. No stones, no biliary sludge and ducts of normal caliber were identified. Evidence of a previous cholecystectomy was identified endosonographically. A hypoechoic lesion suggestive of a cyst was identified in the pancreatic head. It is not in obvious communication with the pancreatic duct. The lesion measured 20 mm by 15 mm in maximal cross-sectional diameter. There were a few compartments thinly septated. The outer wall of the lesion was not seen. There was no associated mass. There was no internal debris within the fluid-filled cavity. An irregular mass was identified in the pancreatic neck. The mass was hypoechoic. The mass measured 14 mm by 11 mm in maximal cross-sectional diameter. The endosonographic borders were well-defined. An intact interface was seen between the mass and the celiac trunk, splenic vein and splenoportal confluence suggesting a lack of invasion. The remainder of the pancreas was examined. The endosonographic appearance of parenchyma and the upstream pancreatic duct indicated duct dilation and a maximum duct diameter of 4 mm. Fine needle aspiration for cytology was performed. Color Doppler imaging was utilized prior to needle puncture to confirm a lack of significant vascular structures within the needle path. Four passes were made with the 22 gauge needle using a transgastric approach. A stylet was used. A compensation/benefits specialist was present to evaluate the adequacy of the specimen. Final cytology results are pending. Hypoechoic lesions suggestive of multiple cysts were identified in the pancreatic body. The largest lesion measured 38 mm by 30 mm in maximal cross-sectional diameter. There was no associated mass. Diagnostic needle aspiration for fluid was performed. Color Doppler imaging was utilized prior to needle puncture to confirm a lack of significant vascular structures within the needle path. One pass was made with the 22 gauge needle using a transgastric approach. A stylet was used. The amount of fluid collected was 6 mL. The fluid was clear, serous and slightly viscous. Sample(s) were sent for amylase concentration, cytology and CEA. Estimated blood loss was minimal. Hypoechoic lesions suggestive of multiple cysts were identified in the pancreatic tail. The largest lesion measured 13 mm by 10 mm in maximal cross-sectional diameter. There was an associated mural nodule in the wall. Impression: - There was no sign of significant pathology in the ampulla. - There was abnormal echogenicity in the visualized portion of the liver. This was hyperechoic. Tissue has not been obtained. However, the endosonographic appearance is consistent with fatty infiltration. - There was no sign of significant pathology in the common bile duct. - Evidence of a cholecystectomy. - A cystic lesion was seen in the pancreatic head. Tissue has not been obtained. However, the endosonographic appearance is suggestive of an intraductal papillary mucinous neoplasm. - A 14 x 11 mm mass was identified in the pancreatic neck. This was staged T2 N0 M0 by endosonographic criteria. The staging applies if malignancy is confirmed. Fine needle aspiration performed. - Multiple cystic lesions were seen in the pancreatic body. Fine needle aspiration for fluid performed. - Multiple cystic lesions were seen in the pancreatic tail. Recommendation: - Return patient to hospital [facility] for ongoing care. - Use broad spectrum antibiotics for 5 days. - Await cytology results and await path results. Magdaleno Wiley D.O. Magdaleno Wiley, 12/25/2022 9:35:45 AM This report has been signed electronically. Note Initiated On: 12/25/2022 8:26 AM Number of Addenda: 0 I attest to the content of the Intraoperative Record and orders documented therein, exceptions below {[id number]}
[2022-12-25] MEDS: CALCIUM CARBONATE 1250MG TAB PO SCH (10:03)
[2022-12-25] MEDS: CHOLECALCIFEROL 1,000 UNITS 25 MCG TAB PO SCH (10:03)
[2022-12-25] MEDS: POLYETHYLENE (MIRALAX) 17 GM PACK PO SCH (10:03)
[2022-12-25] MEDS: PANTOprazole 40 MG TAB PO SCH (10:04)
--- NOTE | 2022-12-25 10:04 | Anesthesiology Progress Note ---
Date of Service December 25, 2022 Anesthesia Post Procedure Vital Signs Vital Signs: Temp Pulse Pulse Resp BP Pulse Ox O2 Del Method 12/25/22 09:58 36.7 C 67 18 135/81 93 Room Air 12/25/22 09:45 36.5 C 60 12 126/73 94 Room Air 12/25/22 09:35 60 12 137/80 95 Nasal Cannula 12/25/22 09:25 36.0 C L 63 20 130/76 94 Nasal Cannula 12/25/22 07:50 36.8 C 67 20 175/108 H 94 Room Air 12/25/22 07:14 Room Air 12/25/22 07:25 167/114 H 12/25/22 07:09 36.6 C 75 18 181/109 H 95 Room Air 12/24/22 19:40 Room Air 12/24/22 19:44 36.7 C 74 16 130/80 94 Room Air 12/24/22 15:32 36.5 C 70 18 112/78 93 Room Air O2 Flow Rate 12/25/22 09:58 12/25/22 09:45 12/25/22 09:35 2 12/25/22 09:25 2 12/25/22 07:50 12/25/22 07:14 12/25/22 07:25 12/25/22 07:09 12/24/22 19:40 12/24/22 19:44 12/24/22 15:32 Pain Intensity Left Abdomen: Pain Intensity: 0 Transfer of Care Handoff Completed per policy Notes Mental Status: alert / awake / arousable and participated in evaluation Patient Amnestic to Procedure: Yes Nausea / Vomiting: adequately controlled Pain: adequately controlled Airway Patency, RR, SpO2: stable & adequate BP & HR: stable & adequate Hydration State: stable & adequate Anesthetic Complications: no major complications apparent
[2022-12-25] MEDS: amLODIPine BESYLATE 5 MG TAB PO SCH (10:05)
[2022-12-25] MEDS: carvediloL 25 MG TAB PO SCH (10:05)
[2022-12-25] MEDS: SERTRALINE HCL 100 MG TABLET PO SCH (10:05)
[2022-12-25] MEDS: ISOSORBIDE MONO EXTENDED REL 60 MG TABCR PO SCH (10:06)
--- NOTE | 2022-12-25 14:54 | Discharge Summary ---
Date of Service December 25, 2022 Admission HPI Per Admitting Provider General Appearance:WD/WN, vitals as above, NAD, sitting up in bed, pleasant, conversing easily Head: normocephalic, atraumatic Eyes:normal inspection, PERRL, conjunctivae normal, anicteric sclerae ENT: external ear and nose normal, oropharynx normal Neck: normal visual inspection, trachea midline, no thyromegaly Respiratory:normal respiratory effort, lungs clear to auscultation, no wheeze, rales, rhonchi. No accessory muscle use Cardiovascular: regular rate, rhythm, no murmur, normal peripheral pulses, no BLE edema. Vessels: no JVD Chest: normal inspection of chest Abdomen/GI: normal bowel sounds, soft, nontender Extremities/Musculoskeletal:+ L flank and midback pain TTP, no deformity noted. No cyanosis or clubbing, extremities motor strength 5/5 Neurologic: PERRL, EOMI, accommodation nl, no face palsy, no dysarthria, CN's II-XI intact bilaterally and moves all extremities Psychiatric:A+Ox3, euthymic affect Skin: no rashes, normal color, warm/dry Admission Exam Per Admitting Provider General Appearance:WD/WN, vitals as above, NAD, sitting up in bed, pleasant, conversing easily Head: normocephalic, atraumatic Eyes:normal inspection, PERRL, conjunctivae normal, anicteric sclerae ENT: external ear and nose normal, oropharynx normal Neck: normal visual inspection, trachea midline, no thyromegaly Respiratory:normal respiratory effort, lungs clear to auscultation, no wheeze, rales, rhonchi. No accessory muscle use Cardiovascular: regular rate, rhythm, no murmur, normal peripheral pulses, no BLE edema. Vessels: no JVD Chest: normal inspection of chest Abdomen/GI: normal bowel sounds, soft, nontender Extremities/Musculoskeletal:+ L flank and midback pain TTP, no deformity noted. No cyanosis or clubbing, extremities motor strength 5/5 Neurologic: PERRL, EOMI, accommodation nl, no face palsy, no dysarthria, CN's II-XI intact bilaterally and moves all extremities Psychiatric:A+Ox3, euthymic affect Skin: no rashes, normal color, warm/dry Principal Diagnosis Acute pancreatitis Pancreatic mass status post EUS with FNAC Discharge Exam General Appearance:WD/WN, vitals as above, NAD, sitting up in bed, pleasant, conversing easily Head: normocephalic, atraumatic Eyes:normal inspection, PERRL, conjunctivae normal, anicteric sclerae ENT: external ear and nose normal, oropharynx normal Neck: normal visual inspection, trachea midline, no thyromegaly Respiratory:normal respiratory effort, lungs clear to auscultation, no wheeze, rales, rhonchi. No accessory muscle use Cardiovascular: regular rate, rhythm, no murmur, normal peripheral pulses, no BLE edema. Vessels: no JVD Chest: normal inspection of chest Abdomen/GI: normal bowel sounds, soft, nontender Extremities/Musculoskeletal:+ L flank and midback pain TTP, no deformity noted. No cyanosis or clubbing, extremities motor strength 5/5 Neurologic: PERRL, EOMI, accommodation nl, no face palsy, no dysarthria, CN's II-XI intact bilaterally and moves all extremities Psychiatric:A+Ox3, euthymic affect Skin: no rashes, normal color, warm/dry Discharge Data Allergies Allergy/AdvReac Type Severity Reaction Status Date / Time Iodinated Contrast Media Allergy Severe Hives, Verified 11/09/21 18:38 anaphylaxis ether Allergy Unknown Unknown Verified 11/09/21 18:38 prednisone AdvReac Severe GI pain > Verified 11/09/21 18:38 pancreatitis rosiglitazone AdvReac Severe Blood clots Verified 11/09/21 18:38 atorvastatin [From Lipitor] AdvReac Intermediate Muscle Pain Verified 11/09/21 18:38 ezetimibe [From Zetia] AdvReac Intermediate Muscle Pain Verified 11/09/21 18:38 lisinopril AdvReac Intermediate Cough Verified 11/09/21 18:38 losartan AdvReac Intermediate N/V Verified 11/09/21 18:38 ranitidine AdvReac Intermediate N/V, Verified 11/09/21 18:38 achiness rosuvastatin [From Crestor] AdvReac Intermediate Muscle Pain Verified 11/09/21 18:38 Consultations 12/21/22 12:36 ED Decision to Admit Stat Procedures Performed Operation Date: 12/25/22 08:20 Actual Procedures p Esophagogastroduodenoscopy - Magdaleno Wiley, DO p Endoscopic Ultrasonography Upper with Fine Needle Aspiration - Magdaleno Wiley DO Ordered Studies 12/25/22 08:24 US upper EUS PACS images Routine Hospital Course (1) Acute pancreatitis: (2) Atrial fibrillation: (3) CKD (chronic kidney disease) stage 3, GFR 30-59 ml/min: (4) CAD (coronary artery disease): (5) Hypothyroidism: (6) HTN (hypertension): Plan Patient is an 82yo F with a PMH of pancreatic cyst 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 CT abdomen and pelvis done in the hospital showed edema at the tail of the pancreas which may be related to pancreatitis, ruptured pancreatic tail cystic lesion or combination of both Lipase was elevated to 476. Patient was admitted to medical floor. She underwent IV hydration and supportive care. She underwent EGD and endoscopic ultrasound on December 25; she was found to have 14 into 11 mm mass in pancreatic neck. Multiple cystic lesions were seen in pancreatic body and tail. Fine-needle aspiration was done. Patient was discharged home with instruction to follow-up with her primary care doctor on December 27. Her primary care doctor was informed regarding the endoscopic ultrasound finding. Depending on the FNACs results, patient will need medical oncology and surgical oncology evaluation. This was discussed with the patient at discharge. Please note the above document was generated using voice recognition software. It may contain grammatical, syntax or spelling errors. Any formal questions or concerns about the content, text or information contained within the body of this dictation should be directly addressed to the provider for clarification Total Time Total Time Spent Total Time Spent (In Minutes): 45 Total Time Includes: Examination of the Patient, Discharge Planning, Medication Reconciliation, Communication With Other Providers and Other Discharge Plan Discharge Items Patient Disposition: Home - Self-Care Reason For Visit: PANCREATITIS Discharge Diagnosis: Pancreatitis Pancreatic neck mass. Activity: Resume your previous activity Non-emergency contact: Primary Care Provider Call non-emergency contact if: you have any medication questions and your symptoms worsen Follow-up/Referrals: Shonda Chakraborty MD [Primary Care Provider] - Diet: Regular Addtl Attending Provider Instructions: You were admitted to the hospital with abdominal pain. You were evaluated for Dr. Wiley during the hospitalization. You underwent endoscopy and endoscopic ultrasound on 12/25/2022. You were found to have 14 into 11 mm mass in pancreatic neck. A sample of the tissue sent to the pathology. You will be called by Dr. Wiley with results. You are prescribed ciprofloxacin 500 mg to be taken twice daily for 5 days. You have appointment with your primary care doctor on December 27 at 11:20 AM. Please arrive 10 minutes early. Pending Studies at Discharge: No Stand-Alone Forms: My [facility] [address] [employer], Smoking Cessation Medications and DC Order Prescriptions: New ciprofloxacin HCl 500 mg tablet 500 mg PO BID 5 Days Qty: 10 0RF Continued aspirin 81 mg Tablet,Delayed Release (Dr/Ec) 81 mg PO QPM isosorbide mononitrate 60 mg Tablet Extended Release 24 Hr See Rx Instructions .ROUTE .COMPLEX Rx Instructions: 60 MG ORALLY; TAKES 120 MG QAM, THEN 60 MG QPM. levothyroxine 50 mcg Tablet 50 mcg PO QAM nitroglycerin 0.4 mg Tablet, Sublingual 1 tab Sublingual UD PRN (Reason: Chest Pain) carvedilol phosphate [Coreg CR] 40 mg capsule, ER multiphase 24 hr 40 mg PO QAM Patient Comments: BRAND NECESSARY Rx Instructions: BRAND NECESSARY carvedilol phosphate 20 mg Capsule, Er Multiphase 24 Hr 20 mg PO HS Patient Comments: BRAND NECESSARY Rx Instructions: BRAND NECESSARY omeprazole 20 mg capsule,delayed release(DR/EC) 20 mg PO DAILY PRN (Reason: Acid Reflux) alprazolam [Xanax] 0.25 mg tablet 0.25 mg PO TID PRN (Reason: Anxiety) dicyclomine 10 mg Capsule 10 mg PO QID PRN (Reason: Indigestion) cholecalciferol (vitamin D3) [Vitamin D3] 50 mcg (2,000 unit) tablet 2,000 unit PO QAM acetaminophen [Tylenol Extra Strength] 500 mg Tablet 1,000 mg PO Q6H PRN (Reason: knee pain) warfarin 2 mg tablet 5 mg PO PM calcium carbonate [Calcium 600] 600 mg calcium (1,500 mg) Tablet 600 mg PO DAILY sertraline 100 mg tablet 100 mg PO DAILY amlodipine 5 mg tablet 5 mg PO DAILY cholestyramine (with sugar) 4 gram powder in packet 1 ea PO Q OTHER DAY famotidine 20 mg Tablet 20 mg PO BID PRN (Reason: Dyspepsia) Discharge Orders: Discharge Order (Routine); Ordered 12/25/22 Ordered By: William Velasquez/Other Patient Handouts: Understanding Deep Vein Thrombosis Admission Data Admit Date/Time: 12/21/22 13:48 Attending Provider: William Greco Admit Provider: Francoise Weber Primary Care Provider: Shonda Chakraborty Other Providers: Joce Alaniz ; Francoise Weber Other Interventions: Discharge Summary Assessment (RN) Last Done: 12/25/22 11:36
[2022-12-25] MEDS ORDERED: CIPROFLOXACIN / D5W 200 MG/100 ML BAG IV SCH (21:00)
--- NOTE | 2022-12-29 06:31 | Coding Query ---
PATHOLOGY To promote full compliance with coding requirements relating to patient care, physician participation is requested in all cases of check cashier uncertainty. Please assist us with the question(s) below: Please review the Pathology report and please document any relevant diagnosis(es) below: Diagnosis(es): Pancreatic adenocarcinoma Thank you Thu REYNOLDS
== END 2022-12-25 12:43 | disposition home or self-care (01) | DRG 435 ==
LOC: ED 12:05 → SUATTDRO 13:48 → 3N 13:48

== ENCOUNTER 2022-12-29 17:17 | Inpatient (IN) ==
[2022-12-29] MEDS ORDERED: ONDANSETRON INJ 2 MG/ML 2 ML VIAL IV STA (18:07)
[2022-12-29 18:21] LABS: Basophils # (auto) 0.05 K/uL (0-0.2); Basophils % (auto) 0.3 %; Eosinophils # (auto) 0.09 K/uL (0-0.50); Eosinophils % (auto) 0.6 %; Hematocrit (blood only) 38.6 % (37.0-47.0); Hemoglobin 12.6 g/dl (12.0-16.0); Immature Granulocytes % (auto) 0.7 %; Lymphocytes # (auto) 1.04 K/uL (1.2-3.4); Lymphocytes % (auto) 6.8 %; Mean Corpuscular Hgb Conc 32.6 g/dL (32.0-36.0); Mean Corpuscular Volume 88.7 fL (80.0-100.0); Mean Platelet Volume 12.1 fL (9.4-12.4); Monocytes # (auto) 1.49 K/uL (0.11-0.59); Monocytes % (auto) 9.7 %; Neutrophils # (auto) 12.53 K/uL (1.40-6.50); Neutrophils % (auto) 81.9 %; Platelet Count 180 K/uL (130-400); RDW Coefficient of Variation 13.9 % (11.5-14.5); Red Blood Count 4.35 M/uL (4.20-5.40)
--- NOTE | 2022-12-29 18:36 | XRay Report ---
SINGLE VIEW CHEST CLINICAL HISTORY: Dyspnea FINDINGS: An AP, portable, upright chest radiograph is compared to study dated 11/09/2021. The patient is status post midline sternotomy. A 2-lead cardiac pacemaker is unchanged in position and partially obscures the left upper chest. The heart is enlarged noting atherosclerotic calcification of the tho racic aorta. The pulmonary vasculature is noncongested. Chronic interstitial thickening is similar to previous. There is chronic elevation of the right hemidiaphragm with bibasilar scarring/atelectasis. No airspace consolidation or large pleural effusion is identified. No pneumothorax is seen. The skel etal structures are osteopenic. There is chronic posttraumatic deformity of the right proximal humeru s. Arthritic changes seen in the shoulders. IMPRESSION: 1. Cardiomegaly and cardiac pacemaker without radiographic evidence of congestive failure. 2. No airspace consolidation or large pleural effusion is identified. ACT 112: Negative or not required by law. Electronically signed by: Baljeet Avitia M.D. 12/29/2022 6:34 PM
[2022-12-29 18:38] LABS: Alanine Aminotransferase 36 U/L (7-52); Albumin Level 3.4 gm/dl (3.4-5.0); Alkaline Phosphatase 145 U/L (34-104); Anion Gap 9 (3-11); Aspartate Aminotransferase 29 U/L (13-39); BUN Creatinine Ratio 21.6 (10-20); Bilirubin Direct 0.4 mg/dl (0-0.2); Blood Urea Nitrogen 21 mg/dl (6-23); Calcium 8.7 mg/dl (8.6-10.3); Carbon Dioxide 24 mmol/L (21-32); Chloride 103 mmol/L (98-107); Est GFR (African American) 62.6 ml/min; Glucose 136 mg/dl (70-99(Fasting)); Lipase 128 U/L (11-82); Magnesium 2.1 mg/dl (1.7-2.4); Potassium 3.6 mmol/L (3.5-5.1); Sodium 136 mmol/L (136-145); Total Protein 6.8 gm/dl (6.0-8.3)
[2022-12-29] MEDS ORDERED: MoRPHine SULFATE 4 MG/ML 1 ML CARP\\VIAL IV STA (18:39)
[2022-12-29 18:43] LABS: Troponin I High Sensitivity 26.4 pg/ml (0-14)
[2022-12-29 18:48] LABS: INR 1.5 (0.9-1.1); Partial Thromboplastin Ratio 1.2; Partial Thromboplastin Time 33.1 Seconds (21.0-31.0); Prothrombin Time 16.4 Seconds (9.0-12.0)
[2022-12-29 19:16] LABS: Base Excess VBG -0.8 mEq/L; HCO3 VBG 25 mmol/L; Oxygen Saturation VBG 60.3 %; PCO2 VBG 47 mmHg (38-50); PO2 VBG 35 mmHg; pH VBG 7.34 (7.36-7.41)
--- NOTE | 2022-12-29 19:16 | Emergency Department Note ---
History of Present Illness General Chief Complaint: Illness Time Seen by Provider: 12/29/22 17:59 History of Present Illness Provider Complaint: abdominal pain Onset (ago): 4 day(s) Pain Consistency: constant Location: diffuse Severity: moderate Maximum Pain Intensity: 6 Current Pain Intensity: 6 Quality: + stabbing and + sharp Relieved By: + nothing Exacerbated By: + vomiting Context: no foreign travel, no possible food poisoning, no sick contacts, no recent antibiotic use or no recent injury Associated Symptoms: + nausea and + vomiting (billious); no fever, no chills, no dysuria, no hematemesis, no hematochezia, no melena, no hematuria and no syncope Home Medications Medication Instructions Recorded Confirmed Type aspirin 81 mg tablet,delayed 81 mg PO QPM 03/19/18 12/29/22 History release isosorbide mononitrate 60 mg See Rx Instructions .Route .COMPLEX 03/19/18 12/29/22 History tablet,extended release 24 hr levothyroxine 50 mcg tablet 50 mcg PO QAM 03/19/18 12/29/22 History nitroglycerin 0.4 mg sublingual 1 tab sublingual UD PRN Chest Pain 03/19/18 12/29/22 History tablet carvedilol phosphate 40 mg 40 mg PO QAM 11/02/18 12/29/22 History capsule,[id number] multiphase (Coreg CR) carvedilol phosphate 20 mg 20 mg PO HS 05/01/19 12/29/22 History capsule,[id number] multiphase omeprazole 20 mg capsule,delayed 20 mg PO DAILY PRN Acid Reflux 05/07/20 12/29/22 History release alprazolam 0.25 mg tablet (Xanax) 0.25 mg PO TID PRN Anxiety 06/18/20 12/29/22 History cholecalciferol (vitamin D3) 50 2,000 unit PO QAM 06/18/20 12/29/22 History mcg (2,000 unit) tablet (Vitamin D3) dicyclomine 10 mg capsule 10 mg PO QID PRN Indigestion 06/18/20 12/29/22 History acetaminophen 500 mg tablet 1,000 mg PO Q6H PRN knee pain 02/24/21 12/29/22 History (Tylenol Extra Strength) warfarin 2 mg tablet 5 mg PO PM 02/24/21 12/29/22 History calcium carbonate 600 mg calcium 600 mg PO DAILY 11/09/21 12/29/22 History (1,500 mg) tablet (Calcium) amlodipine 5 mg tablet 5 mg PO DAILY 12/21/22 12/29/22 History cholestyramine (with sugar) 4 gram 1 ea PO Q OTHER DAY 12/21/22 12/29/22 History powder for susp in a packet famotidine 20 mg tablet 20 mg PO BID PRN Dyspepsia 12/21/22 12/29/22 History sertraline 100 mg tablet 100 mg PO DAILY 12/21/22 12/29/22 History ciprofloxacin HCl 500 mg tablet 500 mg PO BID 5 days #10 tabs 12/25/22 12/29/22 Rx Allergies Allergy/AdvReac Type Severity Reaction Status Date / Time Iodinated Contrast Media Allergy Severe Hives, Verified 12/29/22 20:18 anaphylaxis ether Allergy Unknown Unknown Verified 12/29/22 20:18 prednisone AdvReac Severe GI pain > Verified 12/29/22 20:18 pancreatitis rosiglitazone AdvReac Severe Blood clots Verified 12/29/22 20:18 atorvastatin [From Lipitor] AdvReac Intermediate Muscle Pain Verified 12/29/22 20:18 ezetimibe [From Zetia] AdvReac Intermediate Muscle Pain Verified 12/29/22 20:18 lisinopril AdvReac Intermediate Cough Verified 12/29/22 20:18 losartan AdvReac Intermediate N/V Verified 12/29/22 20:18 ranitidine AdvReac Intermediate N/V, Verified 12/29/22 20:18 achiness rosuvastatin [From Crestor] AdvReac Intermediate Muscle Pain Verified 12/29/22 20:18 Past Med/Surg History Medical History CAD (coronary artery disease) CABG x5 in 2005 in [place] with BROWN to LAD, SVG to diagonal, SVG to OM, SVG to RPDA, and SVG to the distal RCA, PCI x3 Carotid artery stenosis LICA/FITZ <50% stenosis, Right subclavian stenosis vs. occlusion with abnormal flow noted in vertebral artery per 08/2019 carotid duplex Chronic back pain DVT (deep venous thrombosis) Dyslipidemia GERD (gastroesophageal reflux disease) HTN (hypertension) Hypothyroidism IPMN (intraductal papillary mucinous neoplasm) Osteoarthritis Pacemaker 2/2 SSS, last pacer check 01/2020 Paroxysmal atrial fibrillation Pulmonary embolism remote years ago Surgical History H/O arthroscopy of knee H/O arthroscopy of shoulder H/O parathyroidectomy History of hysterectomy Hx of adenoidectomy Hx of appendectomy Hx of cataract surgery Hx of cholecystectomy Hx of hemorrhoidectomy Hx of tonsillectomy Pacemaker placement S/P BSO (bilateral salpingo-oophorectomy) S/P CABG x 3 CABG x5 in 2005 in [place] with BROWN to LAD, SVG to diagonal, SVG to OM, SVG to RPDA, and SVG to the distal RCA Family History Mother Stroke Social History Smoking Status: Never smoker Second Hand Exposure: No; Do You Dip or Chew Tobacco: No; Hx Alcohol Use: No Hx Substance Use: No Preferred Language: [place] Communication Ability: Effective 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 Beliefs That Will Affect Care: None marital status: Current Living Situation: Family Current Living Situation Comment: Daughter LIVES WITH PT Feels Safe at Home: Yes Safety Concerns: Feels Safe At This Time Assistive Devices: Glasses and Hearing Aid - Bilateral Physical Exam Vital Signs: Vital Signs - 24 hr 12/29/22 17:32 12/29/22 17:33 12/29/22 17:45 Temperature 36.7 C Temperature Source Oral Pulse Rate 83 84 61 Pulse Rate [Apical ] Pulse Rate [Right Finger] Pulse Rate from Sp O2 Sensor 61 Pulse Rhythm [Righ t Finger] Pulse Strength [Ri ght Finger] Respiratory Rate 16 13 Respiratory Effort / Characteristics Respiratory Depth Respiratory Patter n Blood Pressure 172/108 H Blood Pressure [Ri ght Arm] Blood Pressure Brionna n 129 Blood Pressure Brionna n [Right Arm] Blood Pressure Pos ition [Right Arm] Pulse Oximetry 93 93 Oxygen Delivery Me thod Room Air Room Air Oxygen Flow Rate Sepsis New/Unexpla ined Change in Men josh Status No Sepsis Action Take n by Nursing No Action Required Oxygen Flow Rate - Titration Pulse Oximetry Pos t Tiitration 12/29/22 18:00 12/29/22 18:00 12/29/22 18:19 Temperature Temperature Source Pulse Rate 60 Pulse Rate [Apical ] 61 Pulse Rate [Right Finger] Pulse Rate from Sp O2 Sensor 60 Pulse Rhythm [Righ t Finger] Pulse Strength [Ri ght Finger] Respiratory Rate 13 17 Respiratory Effort / Characteristics Respiratory Depth Respiratory Patter n Blood Pressure 149/67 H Blood Pressure [Ri ght Arm] Blood Pressure Brion[place] n 122 Blood Pressure Brion[place] n [Right Arm] Blood Pressure Pos ition [Right Arm] Pulse Oximetry 92 96 Oxygen Delivery Me thod Nasal Cannula Oxygen Flow Rate 3 Sepsis New/Unexpla ined Change in Men josh Status Sepsis Action Take n by Nursing Oxygen Flow Rate - Titration Pulse Oximetry Pos t Tiitration 12/29/22 18:10 12/29/22 20:09 12/29/22 21:23 Temperature 36.7 C Temperature Source Oral Pulse Rate 69 Pulse Rate [Apical ] Pulse Rate [Right Finger] 60 Pulse Rate from Sp O2 Sensor Pulse Rhythm [Righ t Finger] Regular Pulse Strength [Ri ght Finger] Normal Respiratory Rate 15 Respiratory Effort / Characteristics Non-Labored Sponta neous Respiratory Depth Normal Respiratory Patter n Regular Blood Pressure Blood Pressure [Ri ght Arm] 134/65 Blood Pressure Brionna n Blood Pressure Brionna n [Right Arm] 88 Blood Pressure Pos ition [Right Arm] Lying Pulse Oximetry 88 L 97 Oxygen Delivery Me thod Nasal Cannula Room Air Oxygen Flow Rate 0 Sepsis New/Unexpla ined Change in Men josh Status Sepsis Action Take n by Nursing Oxygen Flow Rate - Titration 3 Pulse Oximetry Pos t Tiitration 97 12/29/22 22:00 Temperature Temperature Source Pulse Rate Pulse Rate [Apical ] 60 Pulse Rate [Right Finger] Pulse Rate from Sp O2 Sensor Pulse Rhythm [Righ t Finger] Pulse Strength [Ri ght Finger] Respiratory Rate 18 Respiratory Effort / Characteristics Non-Labored Sponta neous Respiratory Depth Normal Respiratory Patter n Regular Blood Pressure Blood Pressure [Ri ght Arm] 140/74 Blood Pressure Brionna n Blood Pressure Brionna n [Right Arm] 96 Blood Pressure Pos ition [Right Arm] Semi-fowlers Pulse Oximetry 96 Oxygen Delivery Me thod Nasal Cannula Oxygen Flow Rate 2 Sepsis New/Unexpla ined Change in Men josh Status Sepsis Action Take n by Nursing Oxygen Flow Rate - Titration Pulse Oximetry Pos t Tiitration Physical Exam: Physical Exam GENERAL: Ill-appearing. NECK: Normal range of motion. Neck supple. No JVD present. CV: Normal rate, regular rhythm, normal heart sounds and intact distal pulses. Palpable radial pulses bue. PULM/CHEST: Inspiratory rales at the bases bilaterally. ABD: The abdomen is soft. There is no tenderness. There is no rebound, no guarding. MUSC/SKEL: Normal range of motion. There is no tenderness or deformity. NEURO: Motor and sensation grossly intact. Course Course 1758: The patient was evaluated in room B12. A complete history and physical exam was performed Cardiac monitoring: An order was placed for continuous cardiac monitoring. The monitor shows a rate of 60 with rhythm interpreted by me Patient was found to be hypoxic on room air. Supplemental oxygen via nasal cannula was applied which improved the patient's oxygen saturation. 2109: Vital signs stable on supplemental oxygen via nasal cannula. Labs show a leukocytosis of 15.3 INR 1.5 VBG within normal limits. Patient's troponin is elevated 26.4. Patient has chronically elevated troponin. BNP 1106. Based off the patient's pathology results CEA and amylase added. Patient be given Lasix given her cardiomegaly and cephalization on chest x-ray [facility] will be notified. Administered Medications Carvedilol (Carvedilol 12.5 Mg Tab) 12.5 mg PO BID [facility] Stop: 01/28/23 23:44 Last Admin: 12/30/22 00:47 Dose: Not Given Documented By: DANG Heparin Sodium/Dextrose (Heparin Sodium/Dextrose) 25,000 units in 500 mls @ 18 mls/hr IV .Q24H NICK; Protocol Stop: 01/28/23 22:14 Last Admin: 12/29/22 23:09 Dose: 900 units/hr, 18 mls/hr Documented By: SARAN Co-signed By: CATHERINE Discontinued Medications Albuterol (Albut/Ipratrop 3mg/0.5mg Neb 3 Ml Vial) 3 ml NEB NOW STA; Protocol Stop: 12/29/22 20:28 Last Admin: 12/29/22 21:07 Dose: 3 ml Documented By: SARAN Furosemide (Furosemide 40 Mg/4 Ml Vial) 40 mg IV ONE ONE Stop: 12/29/22 19:51 Last Admin: 12/29/22 19:59 Dose: 40 mg Documented By: SARAN Heparin Sodium/Dextrose (Heparin Iv Adult Wt-Based Low-Dose *No* Bolus Protocol) 1 each IV ONE STA; Protocol Stop: 12/29/22 22:28 Last Admin: 12/29/22 23:11 Dose: Not Given Documented By: SARAN Albumin Human (Albumin 25%) 25 gm in 100 mls @ 50 mls/hr IV ONE ONE Stop: 12/29/22 22:28 Last Infusion: 12/29/22 22:40 Dose: 0 mls/hr Documented By: Admin: 12/29/22 20:46 Dose: 50 mls/hr Documented By: SARAN Isosorbide Mononitrate (Isosorbide [place] Extended Rel 60 Mg Tabcr) 60 mg PO ONE ONE Stop: 12/29/22 23:46 Last Admin: 12/30/22 00:47 Dose: Not Given Documented By: DANG Morphine Sulfate (Morphine Sulfate 4 Mg/Ml 1 Ml Carp\Vial) 4 mg IV NOW STA Stop: 12/29/22 18:40 Last Admin: 12/29/22 19:00 Dose: 4 mg Documented By: SARAN Ondansetron HCl (Ondansetron Inj 2 Mg/Ml 2 Ml Vial) 4 mg IV NOW STA Stop: 12/29/22 18:08 Last Admin: 12/29/22 18:16 Dose: 4 mg Documented By: DARRYL Medical Decision Making Medical Records Attestation: I reviewed the patient's medical records. External medical records reviewed. Patient was admitted from December 21 to December 25, 2022, she was discharged 4 days ago. During that admission she was diagnosed with pancreatitis. Patient underwent an EGD as well as endoscopic ultrasound with fine-needle aspiration after being found to have a pancreatic mass. Fine-needle aspiration of the pancreas showed a mucinous appearing glandular epithelium with mild atypia and it was recommended for correlation with amylase and CEA testing. Laboratory Data Attestation: I reviewed the patient's lab results. 12/29/22 17:33 12/29/22 17:33 Lab Results 12/29/22 12/29/22 12/29/22 Range/Units 17:33 17:33 17:33 WBC 15.30 H (4.8-10.8) K/ul RBC 4.35 (4.20-5.40) M/uL Hgb 12.6 (12.0-16.0) g/dl Hct 38.6 (37.0-47.0) % MCV 88.7 (80.0-100.0) fL MCH 29.0 (25.0-34.0) pg MCHC 32.6 (32.0-36.0) g/dL RDW Std Deviation 45.0 (36.4-46.3) fL RDW Coeff of [place] 13.9 (11.5-14.5) % Plt Count 180 (130-400) K/uL MPV 12.1 (9.4-12.4) fL Immature Gran % (Auto) 0.7 % Neut % (Auto) 81.9 % Lymph % (Auto) 6.8 % [place] % (Auto) 9.7 % Eos % (Auto) 0.6 % Baso % (Auto) 0.3 % Neut # (Auto) 12.53 H (1.40-6.50) K/uL Lymph # (Auto) 1.04 L (1.2-3.4) K/uL [place] # (Auto) 1.49 H (0.11-0.59) K/uL Eos # (Auto) 0.09 (0-0.50) K/uL Baso # (Auto) 0.05 (0-0.2) K/uL Immature Gran # (Auto) 0.10 (0.01-0.20) K/uL PT 16.4 H (9.0-12.0) Seconds INR 1.5 H (0.9-1.1) APTT 33.1 H (21.0-31.0) Seconds PTT Ratio 1.2 VBG pH (7.36-7.41) VBG pCO2 (38-50) mmHg VBG pO2 mmHg VBG HCO3 mmol/L VBG O2 Saturation % VBG Base Excess mEq/L Sodium 136 (136-145) mmol/L Potassium 3.6 (3.5-5.1) mmol/L Chloride 103 (98-107) mmol/L Carbon Dioxide 24 (21-32) mmol/L Anion Gap 9 (3-11) BUN 21 (6-23) mg/dl Creatinine 0.97 (0.6-1.2) mg/dl Est Cr Clr Drug Dosing Not Reportable Est GFR ( Amer) 62.6 ml/min Est GFR (Non-Af Amer) 54.0 ml/min BUN/Creatinine Ratio 21.6 H (10-20) Glucose 136 H (70-99(Fasting)) mg/dl Calcium 8.7 (8.6-10.3) mg/dl Magnesium 2.1 (1.7-2.4) mg/dl Total Bilirubin 1.0 (0.2-1.0) mg/dl Direct Bilirubin 0.4 H (0-0.2) mg/dl AST 29 (13-39) U/L ALT 36 (7-52) U/L Alkaline Phosphatase 145 H (34-104) U/L Troponin I High Sens 26.4 H (0-14) pg/ml B-Natriuretic Peptide (0-100) pg/ml Total Protein 6.8 (6.0-8.3) gm/dl Albumin 3.4 (3.4-5.0) gm/dl Amylase (25-115) U/L Lipase 128 H (11-82) U/L Carcinoembryonic Ag (0-2.5) ng/ml TSH (0.300-4.500) uIu/ml Urine Color Urine Appearance (Clear) Urine pH (4.5-7.5) Ur Specific [place] (1.000-1.030) Urine Protein (Negative) Urine Glucose (UA) (Negative) Urine Ketones (Negative) Urine Blood (Negative) Urine Nitrite (Negative) Urine Bilirubin (Negative) Urine Urobilinogen (Negative) Ur Leukocyte Esterase (Negative) Urine WBC (Auto) (0-5) /hpf Urine RBC (Auto) (0-4) /hpf U Hyaline Cast (Auto) (0-5) /lpf U Epithel Cells (Auto) (0-5) /lpf Urine Bacteria (Auto) (Negative) SARS-CoV-2, RNA, NAAT (NEGATIVE) 12/29/22 12/29/22 12/29/22 Range/Units 17:33 17:33 17:33 WBC (4.8-10.8) K/ul RBC (4.20-5.40) M/uL Hgb (12.0-16.0) g/dl Hct (37.0-47.0) % MCV (80.0-100.0) fL MCH (25.0-34.0) pg MCHC (32.0-36.0) g/dL RDW Std Deviation (36.4-46.3) fL RDW Coeff of [place] (11.5-14.5) % Plt Count (130-400) K/uL MPV (9.4-12.4) fL Immature Gran % (Auto) % Neut % (Auto) % Lymph % (Auto) % [place] % (Auto) % Eos % (Auto) % Baso % (Auto) % Neut # (Auto) (1.40-6.50) K/uL Lymph # (Auto) (1.2-3.4) K/uL [place] # (Auto) (0.11-0.59) K/uL Eos # (Auto) (0-0.50) K/uL Baso # (Auto) (0-0.2) K/uL Immature Gran # (Auto) (0.01-0.20) K/uL PT (9.0-12.0) Seconds INR (0.9-1.1) APTT (21.0-31.0) Seconds PTT Ratio VBG pH (7.36-7.41) VBG pCO2 (38-50) mmHg VBG pO2 mmHg VBG HCO3 mmol/L VBG O2 Saturation % VBG Base Excess mEq/L Sodium (136-145) mmol/L Potassium (3.5-5.1) mmol/L Chloride (98-107) mmol/L Carbon Dioxide (21-32) mmol/L Anion Gap (3-11) BUN (6-23) mg/dl Creatinine (0.6-1.2) mg/dl Est Cr Clr Drug Dosing Est GFR ( Amer) ml/min Est GFR (Non-Af Amer) ml/min BUN/Creatinine Ratio (10-20) Glucose (70-99(Fasting)) mg/dl Calcium (8.6-10.3) mg/dl Magnesium (1.7-2.4) mg/dl Total Bilirubin (0.2-1.0) mg/dl Direct Bilirubin (0-0.2) mg/dl AST (13-39) U/L ALT (7-52) U/L Alkaline Phosphatase (34-104) U/L Troponin I High Sens (0-14) pg/ml B-Natriuretic Peptide 1106 H (0-100) pg/ml Total Protein (6.0-8.3) gm/dl Albumin (3.4-5.0) gm/dl Amylase (25-115) U/L Lipase (11-82) U/L Carcinoembryonic Ag 1.5 (0-2.5) ng/ml TSH 3.117 (0.300-4.500) uIu/ml Urine Color Urine Appearance (Clear) Urine pH (4.5-7.5) Ur Specific [place] (1.000-1.030) Urine Protein (Negative) Urine Glucose (UA) (Negative) Urine Ketones (Negative) Urine Blood (Negative) Urine Nitrite (Negative) Urine Bilirubin (Negative) Urine Urobilinogen (Negative) Ur Leukocyte Esterase (Negative) Urine WBC (Auto) (0-5) /hpf Urine RBC (Auto) (0-4) /hpf U Hyaline Cast (Auto) (0-5) /lpf U Epithel Cells (Auto) (0-5) /lpf Urine Bacteria (Auto) (Negative) SARS-CoV-2, RNA, NAAT (NEGATIVE) 12/29/22 12/29/22 12/29/22 Range/Units 19:03 19:03 20:00 WBC (4.8-10.8) K/ul RBC (4.20-5.40) M/uL Hgb (12.0-16.0) g/dl Hct (37.0-47.0) % MCV (80.0-100.0) fL MCH (25.0-34.0) pg MCHC (32.0-36.0) g/dL RDW Std Deviation (36.4-46.3) fL RDW Coeff of [place] (11.5-14.5) % Plt Count (130-400) K/uL MPV (9.4-12.4) fL Immature Gran % (Auto) % Neut % (Auto) % Lymph % (Auto) % [place] % (Auto) % Eos % (Auto) % Baso % (Auto) % Neut # (Auto) (1.40-6.50) K/uL Lymph # (Auto) (1.2-3.4) K/uL [place] # (Auto) (0.11-0.59) K/uL Eos # (Auto) (0-0.50) K/uL Baso # (Auto) (0-0.2) K/uL Immature Gran # (Auto) (0.01-0.20) K/uL PT (9.0-12.0) Seconds INR (0.9-1.1) APTT (21.0-31.0) Seconds PTT Ratio VBG pH 7.34 L (7.36-7.41) VBG pCO2 47 (38-50) mmHg VBG pO2 35 mmHg VBG HCO3 25 mmol/L VBG O2 Saturation 60.3 % VBG Base Excess -0.8 mEq/L Sodium (136-145) mmol/L Potassium (3.5-5.1) mmol/L Chloride (98-107) mmol/L Carbon Dioxide (21-32) mmol/L Anion Gap (3-11) BUN (6-23) mg/dl Creatinine (0.6-1.2) mg/dl Est Cr Clr Drug Dosing Est GFR ( Amer) ml/min Est GFR (Non-Af Amer) ml/min BUN/Creatinine Ratio (10-20) Glucose (70-99(Fasting)) mg/dl Calcium (8.6-10.3) mg/dl Magnesium (1.7-2.4) mg/dl Total Bilirubin (0.2-1.0) mg/dl Direct Bilirubin (0-0.2) mg/dl AST (13-39) U/L ALT (7-52) U/L Alkaline Phosphatase (34-104) U/L Troponin I High Sens (0-14) pg/ml B-Natriuretic Peptide (0-100) pg/ml Total Protein (6.0-8.3) gm/dl Albumin (3.4-5.0) gm/dl Amylase 152 H (25-115) U/L Lipase (11-82) U/L Carcinoembryonic Ag (0-2.5) ng/ml TSH (0.300-4.500) uIu/ml Urine Color Urine Appearance (Clear) Urine pH (4.5-7.5) Ur Specific [place] (1.000-1.030) Urine Protein (Negative) Urine Glucose (UA) (Negative) Urine Ketones (Negative) Urine Blood (Negative) Urine Nitrite (Negative) Urine Bilirubin (Negative) Urine Urobilinogen (Negative) Ur Leukocyte Esterase (Negative) Urine WBC (Auto) (0-5) /hpf Urine RBC (Auto) (0-4) /hpf U Hyaline Cast (Auto) (0-5) /lpf U Epithel Cells (Auto) (0-5) /lpf Urine Bacteria (Auto) (Negative) SARS-CoV-2, RNA, NAAT NEGATIVE (NEGATIVE) 12/29/22 Range/Units 20:50 WBC (4.8-10.8) K/ul RBC (4.20-5.40) M/uL Hgb (12.0-16.0) g/dl Hct (37.0-47.0) % MCV (80.0-100.0) fL MCH (25.0-34.0) pg MCHC (32.0-36.0) g/dL RDW Std Deviation (36.4-46.3) fL RDW Coeff of [place] (11.5-14.5) % Plt Count (130-400) K/uL MPV (9.4-12.4) fL Immature Gran % (Auto) % Neut % (Auto) % Lymph % (Auto) % [place] % (Auto) % Eos % (Auto) % Baso % (Auto) % Neut # (Auto) (1.40-6.50) K/uL Lymph # (Auto) (1.2-3.4) K/uL [place] # (Auto) (0.11-0.59) K/uL Eos # (Auto) (0-0.50) K/uL Baso # (Auto) (0-0.2) K/uL Immature Gran # (Auto) (0.01-0.20) K/uL PT (9.0-12.0) Seconds INR (0.9-1.1) APTT (21.0-31.0) Seconds PTT Ratio VBG pH (7.36-7.41) VBG pCO2 (38-50) mmHg VBG pO2 mmHg VBG HCO3 mmol/L VBG O2 Saturation % VBG Base Excess mEq/L Sodium (136-145) mmol/L Potassium (3.5-5.1) mmol/L Chloride (98-107) mmol/L Carbon Dioxide (21-32) mmol/L Anion Gap (3-11) BUN (6-23) mg/dl Creatinine (0.6-1.2) mg/dl Est Cr Clr Drug Dosing Est GFR ( Amer) ml/min Est GFR (Non-Af Amer) ml/min BUN/Creatinine Ratio (10-20) Glucose (70-99(Fasting)) mg/dl Calcium (8.6-10.3) mg/dl Magnesium (1.7-2.4) mg/dl Total Bilirubin (0.2-1.0) mg/dl Direct Bilirubin (0-0.2) mg/dl AST (13-39) U/L ALT (7-52) U/L Alkaline Phosphatase (34-104) U/L Troponin I High Sens (0-14) pg/ml B-Natriuretic Peptide (0-100) pg/ml Total Protein (6.0-8.3) gm/dl Albumin (3.4-5.0) gm/dl Amylase (25-115) U/L Lipase (11-82) U/L Carcinoembryonic Ag (0-2.5) ng/ml TSH (0.300-4.500) uIu/ml Urine Color Yellow Urine Appearance Clear (Clear) Urine pH 5.5 (4.5-7.5) Ur Specific [place] 1.009 (1.000-1.030) Urine Protein Trace H (Negative) Urine Glucose (UA) Negative (Negative) Urine Ketones 1+ H (Negative) Urine Blood 1+ H (Negative) Urine Nitrite Negative (Negative) Urine Bilirubin Negative (Negative) Urine Urobilinogen Negative (Negative) Ur Leukocyte Esterase Negative (Negative) Urine WBC (Auto) 1-5 (0-5) /hpf Urine RBC (Auto) 0-4 (0-4) /hpf U Hyaline Cast (Auto) 1-5 (0-5) /lpf U Epithel Cells (Auto) 10-20 H (0-5) /lpf Urine Bacteria (Auto) Negative (Negative) SARS-CoV-2, RNA, NAAT (NEGATIVE) Imaging Data My Impression: Chest x-ray: Cardiomegaly with cephalization Radiologist's Impression: Abdomen/Pelvis CT 12/29/22 18:07 Exam(s): CT ABDOMEN + PELVIS Without Contrast EXAM: CT Abdomen and Pelvis Without Intravenous Contrast CLINICAL HISTORY: Reason for exam: ro sbo. TECHNIQUE: Axial computed tomography images of the abdomen and pelvis without intravenous contrast. CTDI is 26.19 mGy and DLP is 1447.85 mGy-cm. Automated exposure control was utilized for the study. A dose lowering technique was utilized adhering to the principles of ALARA. COMPARISON: CT abdomen/pelvis on 02/24/2018 FINDINGS: Lung bases: Unremarkable. No mass. No consolidation. ABDOMEN: Liver: Hepatomegaly. Gallbladder and bile ducts: Prior cholecystectomy. No ductal dilation. Pancreas: Peripancreatic fluid is concerning for acute pancreatitis. Cystic structures in the pancreatic body and tail measure approximately 3. 3 x 3.3 x 3.4 cm and 2.4 x 1.8 x 2.3 cm, concerning for pseudocysts, increased in size compared to prior exam. Spleen: Small splenule. Adrenals: Unremarkable. No mass. Kidneys and ureters: Nonspecific bilateral perinephric fat stranding. No hydronephrosis or stone. Left renal cyst. Stomach and bowel: Evaluation of the stomach is limited by under distention. Diverticulosis without evidence of diverticulitis. No small bowel obstruction. PELVIS: Appendix: Appendix is not visualized on this exam. Bladder: Underdistended bladder limits evaluation. No stones. Reproductive: Prior hysterectomy. ABDOMEN and PELVIS: Intraperitoneal space: Small amount of fluid in the pelvis. No free air. Bones/joints: Degenerative changes of the spine. No acute fracture. No dislocation. Soft tissues: Injection granulomas in the left gluteal soft tissues. Small fat-containing umbilical hernia. Vasculature: Atherosclerotic changes of the vasculature. Ectasia of the abdominal aorta. Phleboliths in the pelvis. No abdominal aortic aneurysm. Lymph nodes: Unremarkable. No enlarged lymph nodes. Tubes, lines and devices: Median sternotomy changes. Pacer wires partially visualized heart. Coronary artery calcifications. IMPRESSION: 1. Peripancreatic fluid is concerning for acute pancreatitis. Cystic structures in the pancreatic body and tail measure approximately 3.3 x 3. 3 x 3.4 cm and 2.4 x 1.8 x 2.3 cm, concerning for pseudocysts, increased in size compared to prior exam. 2. Small amount of fluid in the pelvis. 3. Hepatomegaly. Electronically signed by: Palma Perez M.D. 12/29/22 19:39 PM Chest X-Ray 12/29/22 18:07 SINGLE VIEW CHEST CLINICAL HISTORY: Dyspnea FINDINGS: An AP, portable, upright chest radiograph is compared to study dated 11/09/2021. The patient is status post midline sternotomy. A 2-lead cardiac pacemaker is unchanged in position and partially obscures the left upper chest. The heart is enlarged noting atherosclerotic calcification of the thoracic ao rta. The pulmonary vasculature is noncongested. Chronic interstitial thickening is similar to previous. There is chronic elevation of the right hemidiaphragm with bibasilar scarring/atelectasis. No airspace consolidation or large pleural effusion is identified. No pneumothorax is seen. The skeletal structures are osteopenic. There is chronic posttraumatic deformity of the right proximal humerus. Arthritic changes seen in the shoulders. IMPRESSION: 1. Cardiomegaly and cardiac pacemaker without radiographic evidence of congestive failure. 2. No airspace consolidation or large pleural effusion is identified. ACT 112: Negative or not required by law. Electronically signed by: Baljeet Avitia M.D. 12/29/2022 6:34 PM ECG Data Attestation: I personally reviewed and interpreted this ECG as follows: Additional Comments: Paced rhythm with a rate of 60. [place] 190 QRS 116 QTc 486. No ectopy. MDM Narrative 1759: The patient was evaluated in room B12. A complete history and physical exam was performed Cardiac monitoring: An order was placed for continuous cardiac monitoring. The monitor shows a rate of 60 with rhythm interpreted by me Patient was found to be hypoxic on room air. Supplemental oxygen via nasal cannula was applied which improved the patient's oxygen saturation. 2109: Vital signs stable on supplemental oxygen via nasal cannula. Labs show a leukocytosis of 15.3 INR 1.5 VBG within normal limits. Patient's troponin is elevated 26.4. Patient has chronically elevated troponin. BNP 1106. Based off the patient's pathology results CEA and amylase added. Patient be given Lasix given her cardiomegaly and cephalization on chest x-ray [facility] will be notified. Impression & Plan Hypoxia, Fluid overload, Pancreatic mass Critical Care Time Critical Care Time: Yes Total Critical Care Time: 38 I have personally spent greater than 38 minutes of critical care time in the direct management of this patient. This includes bedside care, interpretation of diagnostic studies, and testing, discussion with consultants, patient, and family members, and other required patient management activities. This 38 minutes is in excess of all separately billable procedures. Discharge Plan Visit Data Chief Complaint: Illness ED Provider: Damian Leong Discharge Problem: Hypoxia, Fluid overload, Pancreatic mass Patient Disposition: Admitted As Inpatient Discharge Instructions Interventions: ED Discharge Assessment Last Done: 12/29/22 23:16
--- NOTE | 2022-12-29 19:40 | CT Scan Report ---
Exam(s): CT ABDOMEN + PELVIS Without Contrast EXAM: CT Abdomen and Pelvis Without Intravenous Contrast CLINICAL HISTORY: Reason for exam: ro sbo. TECHNIQUE: Axial computed tomography images of the abdomen and pelvis without intravenous contrast. CTDI is 26.19 mGy and DLP is 1447.85 mGy-cm. Automated exposure control was utilized for the study. A dose lowering technique was utilized adhering to the principles of ALARA. COMPARISON: CT abdomen/pelvis on 02/24/2018 FINDINGS: Lung bases: Unremarkable. No mass. No consolidation. ABDOMEN: Liver: Hepatomegaly. Gallbladder and bile ducts: Prior cholecystectomy. No ductal dilation. Pancreas: Peripancreatic fluid is concerning for acute pancreatitis. Cystic structures in the pancreatic body and tail measure approximately 3. 3 x 3.3 x 3.4 cm and 2.4 x 1.8 x 2.3 cm, concerning for pseudocysts, increased in size compared to prior exam. Spleen: Small splenule. Adrenals: Unremarkable. No mass. Kidneys and ureters: Nonspecific bilateral perinephric fat stranding. No hydronephrosis or stone. Left renal cyst. Stomach and bowel: Evaluation of the stomach is limited by under distention. Diverticulosis without evidence of diverticulitis. No small bowel obstruction. PELVIS: Appendix: Appendix is not visualized on this exam. Bladder: Underdistended bladder limits evaluation. No stones. Reproductive: Prior hysterectomy. ABDOMEN and PELVIS: Intraperitoneal space: Small amount of fluid in the pelvis. No free air. Bones/joints: Degenerative changes of the spine. No acute fracture. No dislocation. Soft tissues: Injection granulomas in the left gluteal soft tissues. Small fat-containing umbilical hernia. Vasculature: Atherosclerotic changes of the vasculature. Ectasia of the abdominal aorta. Phleboliths in the pelvis. No abdominal aortic aneurysm. Lymph nodes: Unremarkable. No enlarged lymph nodes. Tubes, lines and devices: Median sternotomy changes. Pacer wires partially visualized heart. Coronary artery calcifications. IMPRESSION: 1. Peripancreatic fluid is concerning for acute pancreatitis. Cystic structures in the pancreatic body and tail measure approximately 3.3 x 3. 3 x 3.4 cm and 2.4 x 1.8 x 2.3 cm, concerning for pseudocysts, increased in size compared to prior exam. 2. Small amount of fluid in the pelvis. 3. Hepatomegaly. Electronically signed by: Palma Perez M.D. 12/29/22 19:39 PM
[2022-12-29] MEDS ORDERED: FUROSEMIDE 40 MG/4 ML VIAL IV ONE (19:50)
[2022-12-29] MEDS ORDERED: ALBUT/IPRATROP 3MG/0.5MG NEB 3 ML VIAL NEB STA (20:27)
[2022-12-29] MEDS ORDERED: ALBUMIN 25% 25 GM/100 ML VIAL IV ONE (20:29)
[2022-12-29 21:19] LABS: Appearance Urine Clear (Clear); Bacteria Urine Automated Negative (Negative); Bilirubin Urine Negative (Negative); Blood Urine 1+ (Negative); Color Urine Yellow; Glucose Urine UA Negative (Negative); Ketones Urine 1+ (Negative); Leukocyte Esterase Urine Negative (Negative); Nitrite Urine Negative (Negative); Protein Urine Trace (Negative); RBC Urine Automated 0-4 /hpf (0-4); Specific Gravity Urine 1.009 (1.000-1.030); Urobilinogen Urine Negative (Negative); pH Urine 5.5 (4.5-7.5)
--- NOTE | 2022-12-29 22:02 | History & Physical Report ---
Date of Service December 29, 2022 Assessment & Plan (1) Acute hypoxemic respiratory failure: Plan: Pulmonary congestion with abnormal BNP Patient denies unusual SOB symptoms Possible residual fluid overload from fluid resuscitation from last confinement from pancreatitis History diastolic dysfunction Troponin elevation secondary to above Recurrent pancreatitis/pancreatic pseudocysts Recent pancreatic adenocarcinoma diagnosis hx CAD status post CABG/stent/PVD SSS status post PPM/history DVT on Coumadin, INR subtherapeutic mild MR hypertension, currently stable hyperlipidemia/statin intolerance primary hyperparathyroidism status post surgery hypothyroidism, euthyroid as of today's TSH Hyperglycemia ro DM PCU Supplemental O2 Follow up CXR in a.m. for pulmonary congestion to guide decision for additional diuretic Rx Follow troponin Update TTE, Cardiology consult Re: Possible CHF Bowel rest for recurrent pancreatitis IV albumin in place of crystalloid given pulmonary congestion GI consult Re: Recurrent pancreatitis, pancreatic pseudocyst Hold Coumadin for now in case procedure recommended for pseudocyst IV heparin while Coumadin on hold while INR subtherapeutic Inpatient Oncology consultation as per patient/family request Re: Pancreatic cancer Check hemoglobin A1c DVT prophylaxis. IV heparin while Coumadin on hold while INR subtherapeutic Resume Coumadin if no GI intervention INR goal between 2 and 3 Full code Patient daughter requesting updates providers. Christiane Eduardo, contact #[phone]. Text document was generated using [employer] voice recognition software. It may contain grammatical or spelling errors. Kindly contact undersigned for clarification of any documentation item in question. History of Present Illness Chief Complaint: Worsening abdominal pain Primary Care Provider: Shonda Chakraborty MD History obtained from patient, family, and records. Medical history significant for CAD status post CABG/stent, PVD, SSS status post PPM/history DVT on Coumadin, mild MR, hypertension, hyperlipidemia/statin intolerance, GERD, recent diagnosis of pancreatic adenocarcinoma, primary hyperparathyroidism status post surgery, hypothyroidism, anxiety/mood disorder tremors. Recent confinement December 21 to 2022 for acute pancreatitis. Outpatient CT abdomen pelvis showed pancreatitis with ruptured pancreatic tail cystic lesions. Endoscopic ultrasound with FNA of pancreatic mass later disclosed pancreatic adenocarcinoma on cytology. Outpatient [facility] surgical and medical oncology referrals made by GI specialist. A day after returning home, patient noted recurrence of achy abdominal pain with nausea and emesis. Could not keep anything down. No chest pain, usual SOB. Usual leg swelling. Patient not sure about fluid retention. No cough symptoms. No fever, no chills. Patient consulted ER for worsening symptoms. Lowest O2 sats of 80s noted at the ER. Lasix given at the ER for CHF. 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 Allergies Allergy/AdvReac Type Severity Reaction Status Date / Time Iodinated Contrast Media Allergy Severe Hives, Verified 12/29/22 20:18 anaphylaxis ether Allergy Unknown Unknown Verified 12/29/22 20:18 prednisone AdvReac Severe GI pain > Verified 12/29/22 20:18 pancreatitis rosiglitazone AdvReac Severe Blood clots Verified 12/29/22 20:18 atorvastatin [From Lipitor] AdvReac Intermediate Muscle Pain Verified 12/29/22 20:18 ezetimibe [From Zetia] AdvReac Intermediate Muscle Pain Verified 12/29/22 20:18 lisinopril AdvReac Intermediate Cough Verified 12/29/22 20:18 losartan AdvReac Intermediate N/V Verified 12/29/22 20:18 ranitidine AdvReac Intermediate N/V, Verified 12/29/22 20:18 achiness rosuvastatin [From Crestor] AdvReac Intermediate Muscle Pain Verified 12/29/22 20:18 Home Medications Medication Instructions Recorded Confirmed Type aspirin 81 mg tablet,delayed 81 mg PO QPM 03/19/18 12/29/22 History release isosorbide mononitrate 60 mg See Rx Instructions .Route .COMPLEX 03/19/18 12/29/22 History tablet,extended release 24 hr levothyroxine 50 mcg tablet 50 mcg PO QAM 03/19/18 12/29/22 History nitroglycerin 0.4 mg sublingual 1 tab sublingual UD PRN Chest Pain 03/19/18 12/29/22 History tablet carvedilol phosphate 40 mg 40 mg PO QAM 11/02/18 12/29/22 History capsule,ext.[id number] multiphase (Coreg CR) carvedilol phosphate 20 mg 20 mg PO HS 05/01/19 12/29/22 History capsule,ext.[id number] multiphase omeprazole 20 mg capsule,delayed 20 mg PO DAILY PRN Acid Reflux 05/07/20 12/29/22 History release alprazolam 0.25 mg tablet (Xanax) 0.25 mg PO TID PRN Anxiety 06/18/20 12/29/22 History cholecalciferol (vitamin D3) 50 2,000 unit PO QAM 06/18/20 12/29/22 History mcg (2,000 unit) tablet (Vitamin D3) dicyclomine 10 mg capsule 10 mg PO QID PRN Indigestion 06/18/20 12/29/22 History acetaminophen 500 mg tablet 1,000 mg PO Q6H PRN knee pain 02/24/21 12/29/22 History (Tylenol Extra Strength) warfarin 2 mg tablet 5 mg PO PM 02/24/21 12/29/22 History calcium carbonate 600 mg calcium 600 mg PO DAILY 11/09/21 12/29/22 History (1,500 mg) tablet (Calcium) amlodipine 5 mg tablet 5 mg PO DAILY 12/21/22 12/29/22 History cholestyramine (with sugar) 4 gram 1 ea PO Q OTHER DAY 12/21/22 12/29/22 History powder for susp in a packet famotidine 20 mg tablet 20 mg PO BID PRN Dyspepsia 12/21/22 12/29/22 History sertraline 100 mg tablet 100 mg PO DAILY 12/21/22 12/29/22 History ciprofloxacin HCl 500 mg tablet 500 mg PO BID 5 days #10 tabs 12/25/22 12/29/22 Rx Past Med/Surg History Medical History (Updated 12/30/22 @ 09:17 by Pierce Kumar MD) CAD (coronary artery disease) CABG x5 in 2005 in [place] with BROWN to LAD, SVG to diagonal, SVG to OM, SVG to RPDA, and SVG to the distal RCA, PCI x3 Carotid artery stenosis LICA/FITZ <50% stenosis, Right subclavian stenosis vs. occlusion with abnormal flow noted in vertebral artery per 08/2019 carotid duplex Chronic back pain DVT (deep venous thrombosis) Dyslipidemia GERD (gastroesophageal reflux disease) HTN (hypertension) Hypothyroidism IPMN (intraductal papillary mucinous neoplasm) Osteoarthritis Pacemaker 08/03 SSS, last pacer check 01/2020 Paroxysmal atrial fibrillation Pulmonary embolism remote years ago Surgical History H/O arthroscopy of knee H/O arthroscopy of shoulder H/O parathyroidectomy History of hysterectomy Hx of adenoidectomy Hx of appendectomy Hx of cataract surgery Hx of cholecystectomy Hx of hemorrhoidectomy Hx of tonsillectomy Pacemaker placement S/P BSO (bilateral salpingo-oophorectomy) S/P CABG x 3 CABG x5 in 2005 in [place] with BROWN to LAD, SVG to diagonal, SVG to OM, SVG to RPDA, and SVG to the distal RCA Family History Mother Stroke Social History Smoking Status: Never smoker Second Hand Exposure: No; Do You Dip or Chew Tobacco: No; Hx Alcohol Use: No Hx Substance Use: No Preferred Language: Italian Communication Ability: Effective Straightener Hand Required: No Beliefs That Will Affect Care: None marital status: Current Living Situation: Family Current Living Situation Comment: Daughter LIVES WITH PT Feels Safe at Home: Yes Safety Concerns: Feels Safe At This Time Assistive Devices: Glasses and Hearing Aid - Bilateral Review of Systems Review of Systems: As per HPI, all other systems reviewed and negative Physical Exam Physical Exam: GENERAL: Comfortable, no respiratory distress SKIN: Normal color, warm HEENT: [place] palpebral conjunctivae, no ptosis, dry buccal mucosa, nasal cannula in place NECK : Supple, no tenderness CHEST : Decreased breath sounds, no tenderness HEART : RRR, no obvious murmurs ABDOMEN: Some distention, epigastric tenderness EXTREMITIES : Minimal LE swelling, no LE tenderness, no other conspicuous deformities noted NEUROLOGIC : Coherent, no facial asymmetry, no other gross focality Results & Data Results & Data Vital Signs (Past 12 Hours) Vital Signs Temp Pulse Pulse Pulse Resp BP BP 12/29/22 21:23 69 12/29/22 20:09 36.7 C 60 15 134/65 12/29/22 18:10 12/29/22 18:19 61 17 12/29/22 18:00 60 13 12/29/22 18:00 149/67 H 12/29/22 17:45 61 13 12/29/22 17:33 36.7 C 84 16 172/108 H 12/29/22 17:32 83 Pulse Ox O2 Del Method O2 Flow Rate 12/29/22 21:23 12/29/22 20:09 97 Room Air 12/29/22 18:10 88 L Nasal Cannula 0 12/29/22 18:19 96 Nasal Cannula 3 12/29/22 18:00 92 12/29/22 18:00 12/29/22 17:45 93 Room Air 12/29/22 17:33 93 Room Air 12/29/22 17:32 Laboratory Results Laboratory Results WBC 15.30 K/ul (4.8-10.8) H 12/29/22 17:33 RBC 4.35 M/uL (4.20-5.40) 12/29/22 17:33 Hgb 12.6 g/dl (12.0-16.0) 12/29/22 17:33 Hct 38.6 % (37.0-47.0) 12/29/22 17:33 MCV 88.7 fL (80.0-100.0) 12/29/22 17:33 MCH 29.0 pg (25.0-34.0) 12/29/22 17:33 MCHC 32.6 g/dL (32.0-36.0) 12/29/22 17:33 RDW Std Deviation 45.0 fL (36.4-46.3) 12/29/22 17:33 RDW Coeff of [place] 13.9 % (11.5-14.5) 12/29/22 17:33 Plt Count 180 K/uL (130-400) 12/29/22 17:33 MPV 12.1 fL (9.4-12.4) 12/29/22 17:33 Immature Gran % (Auto) 0.7 % 12/29/22 17:33 Neut % (Auto) 81.9 % 12/29/22 17:33 Lymph % (Auto) 6.8 % 12/29/22 17:33 [place] % (Auto) 9.7 % 12/29/22 17:33 Eos % (Auto) 0.6 % 12/29/22 17:33 Baso % (Auto) 0.3 % 12/29/22 17:33 Neut # (Auto) 12.53 K/uL (1.40-6.50) H 12/29/22 17:33 Lymph # (Auto) 1.04 K/uL (1.2-3.4) L 12/29/22 17:33 [place] # (Auto) 1.49 K/uL (0.11-0.59) H 12/29/22 17:33 Eos # (Auto) 0.09 K/uL (0-0.50) 12/29/22 17:33 Baso # (Auto) 0.05 K/uL (0-0.2) 12/29/22 17:33 Immature Gran # (Auto) 0.10 K/uL (0.01-0.20) 12/29/22 17:33 PT 16.4 Seconds (9.0-12.0) H 12/29/22 17:33 INR 1.5 (0.9-1.1) H 12/29/22 17:33 APTT 33.1 Seconds (21.0-31.0) H 12/29/22 17: PTT Ratio 1.2 12/29/22 17:33 VBG pH 7.34 (7.36-7.41) L 12/29/22 19:03 VBG pCO2 47 mmHg (38-50) 12/29/22 19:03 VBG pO2 35 mmHg 12/29/22 19:03 VBG HCO3 25 mmol/L 12/29/22 19:03 VBG O2 Saturation 60.3 % 12/29/22 19:03 VBG Base Excess -0.8 mEq/L 12/29/22 19:03 Sodium 136 mmol/L (136-145) 12/29/22 17:33 Potassium 3.6 mmol/L (3.5-5.1) 12/29/22 17:33 Chloride 103 mmol/L (98-107) 12/29/22 17:33 Carbon Dioxide 24 mmol/L (21-32) 12/29/22 17:33 Anion Gap 9 (3-11) 12/29/22 17:33 BUN 21 mg/dl (6-23) 12/29/22 17:33 Creatinine 0.97 mg/dl (0.6-1.2) 12/29/22 17:33 Est Cr Clr Drug Dosing Not Reportable 12/29/22 17:33 Est GFR ( Amer) 62.6 ml/min 12/29/22 17:33 Est GFR (Non-Af Amer) 54.0 ml/min 12/29/22 17:33 BUN/Creatinine Ratio 21.6 (10-20) H 12/29/22 17:33 Glucose 136 mg/dl (70-99(Fasting)) H 12/29/22 17:33 Calcium 8.7 mg/dl (8.6-10.3) 12/29/22 17:33 Magnesium 2.1 mg/dl (1.7-2.4) 12/29/22 17:33 Total Bilirubin 1.0 mg/dl (0.2-1.0) 12/29/22 17:33 Direct Bilirubin 0.4 mg/dl (0-0.2) H 12/29/22 17:33 AST 29 U/L (13-39) 12/29/22 17:33 ALT 36 U/L (7-52) 12/29/22 17:33 Alkaline Phosphatase 145 U/L (34-104) H 12/29/22 17:33 Troponin I High Sens 26.4 pg/ml (0-14) H 12/29/22 17:33 B-Natriuretic Peptide 1106 pg/ml (0-100) H 12/29/22 17:33 Total Protein 6.8 gm/dl (6.0-8.3) 12/29/22 17:33 Albumin 3.4 gm/dl (3.4-5.0) 12/29/22 17:33 Amylase 152 U/L (25-115) H 12/29/22 19:03 Lipase 128 U/L (11-82) H 12/29/22 17:33 Carcinoembryonic Ag 1.5 ng/ml (0-2.5) 12/29/22 17:33 TSH 3.117 uIu/ml (0.300-4.500) 12/29/22 17:33 Urine Color Yellow 12/29/22 20:50 Urine Appearance Clear (Clear) 12/29/22 20:50 Urine pH 5.5 (4.5-7.5) 12/29/22 20:50 Ur Specific [place] 1.009 (1.000-1.030) 12/29/22 20:50 Urine Protein Trace (Negative) H 12/29/22 20:50 Urine Glucose (UA) Negative (Negative) 12/29/22 20:50 Urine Ketones 1+ (Negative) H 12/29/22 20:50 Urine Blood 1+ (Negative) H 12/29/22 20:50 Urine Nitrite Negative (Negative) 12/29/22 20:50 Urine Bilirubin Negative (Negative) 12/29/22 20:50 Urine Urobilinogen Negative (Negative) 12/29/22 20:50 Ur Leukocyte Esterase Negative (Negative) 12/29/22 20:50 Urine WBC (Auto) 1-5 /hpf (0-5) 12/29/22 20:50 Urine RBC (Auto) 0-4 /hpf (0-4) 12/29/22 20:50 U Hyaline Cast (Auto) 1-5 /lpf (0-5) 12/29/22 20:50 U Epithel Cells (Auto) 10-20 /lpf (0-5) H 12/29/22 20:50 Urine Bacteria (Auto) Negative (Negative) 12/29/22 20:50 SARS-CoV-2, RNA, NAAT NEGATIVE (NEGATIVE) 12/29/22 20:00 Impressions Abdomen/Pelvis CT 12/29/22 18:07 Exam(s): CT ABDOMEN + PELVIS Without Contrast EXAM: CT Abdomen and Pelvis Without Intravenous Contrast CLINICAL HISTORY: Reason for exam: ro sbo. TECHNIQUE: Axial computed tomography images of the abdomen and pelvis without intravenous contrast. CTDI is 26.19 mGy and DLP is 1447.85 mGy-cm. Automated exposure control was utilized for the study. A dose lowering technique was utilized adhering to the principles of ALARA. COMPARISON: CT abdomen/pelvis on 02/24/2018 FINDINGS: Lung bases: Unremarkable. No mass. No consolidation. ABDOMEN: Liver: Hepatomegaly. Gallbladder and bile ducts: Prior cholecystectomy. No ductal dilation. Pancreas: Peripancreatic fluid is concerning for acute pancreatitis. Cystic structures in the pancreatic body and tail measure approximately 3. 3 x 3.3 x 3.4 cm and 2.4 x 1.8 x 2.3 cm, concerning for pseudocysts, increased in size compared to prior exam. Spleen: Small splenule. Adrenals: Unremarkable. No mass. Kidneys and ureters: Nonspecific bilateral perinephric fat stranding. No hydronephrosis or stone. Left renal cyst. Stomach and bowel: Evaluation of the stomach is limited by under distention. Diverticulosis without evidence of diverticulitis. No small bowel obstruction. PELVIS: Appendix: Appendix is not visualized on this exam. Bladder: Underdistended bladder limits evaluation. No stones. Reproductive: Prior hysterectomy. ABDOMEN and PELVIS: Intraperitoneal space: Small amount of fluid in the pelvis. No free air. Bones/joints: Degenerative changes of the spine. No acute fracture. No dislocation. Soft tissues: Injection granulomas in the left gluteal soft tissues. Small fat-containing umbilical hernia. Vasculature: Atherosclerotic changes of the vasculature. Ectasia of the abdominal aorta. Phleboliths in the pelvis. No abdominal aortic aneurysm. Lymph nodes: Unremarkable. No enlarged lymph nodes. Tubes, lines and devices: Median sternotomy changes. Pacer wires partially visualized heart. Coronary artery calcifications. IMPRESSION: 1. Peripancreatic fluid is concerning for acute pancreatitis. Cystic structures in the pancreatic body and tail measure approximately 3.3 x 3. 3 x 3.4 cm and 2.4 x 1.8 x 2.3 cm, concerning for pseudocysts, increased in size compared to prior exam. 2. Small amount of fluid in the pelvis. 3. Hepatomegaly. Electronically signed by: Palma Perez M.D. 12/29/22 19:39 PM Chest X-Ray 12/29/22 18:07 SINGLE VIEW CHEST CLINICAL HISTORY: Dyspnea FINDINGS: An AP, portable, upright chest radiograph is compared to study dated 11/09/2021. The patient is status post midline sternotomy. A 2-lead cardiac pacemaker is unchanged in position and partially obscures the left upper chest. The heart is enlarged noting atherosclerotic calcification of the thoracic aorta. The pulmonary vasculature is noncongested. Chronic interstitial thickening is similar to previous. There is chronic elevation of the right hemidiaphragm with bibasilar scarring/atelectasis. No airspace consolidation or large pleural effusion is identified. No pneumothorax is seen. The skeletal structures are osteopenic. There is chronic posttraumatic deformity of the right proximal humerus. Arthritic changes seen in the shoulders. IMPRESSION: 1. Cardiomegaly and cardiac pacemaker without radiographic evidence of congestive failure. 2. No airspace consolidation or large pleural effusion is identified. ACT 112: Negative or not required by law. Electronically signed by: Baljeet Avitia M.D. 12/29/2022 6:34 PM Diagnostic Findings EKG as per my interpretation :Rate 60, paced rhythm
[2022-12-29] MEDS ORDERED: PROMETHAZINE HCL 6.25 MG in SODIUM CHLORIDE 0.9% 50 ML IV PRN (22:07)
[2022-12-29] MEDS ORDERED: MoRPHine SULFATE 4 MG/ML 1 ML CARP\\VIAL IV PRN (22:07)
[2022-12-29] MEDS ORDERED: Heparin IV Adult Wt-Based Low-Dose *NO* Bolus Protocol IV STA (22:27)
[2022-12-29] MEDS: HEPARIN SODIUM/DEXTROSE 25,000 UNITS/500 ML BAG IV SCH (23:09)
[2022-12-29] MEDS ORDERED: NITROGLYCERIN SL 0.4 MG/TAB TAB SL PRN (23:38)
[2022-12-29] MEDS ORDERED: CARVEDILOL PHOSPHATE 20 MG PO SCH (23:38)
[2022-12-29] MEDS ORDERED: ALPRAZolam 0.25 MG TABLET PO PRN (23:38)
[2022-12-29] MEDS ORDERED: ACETAMINOPHEN 325 MG TAB PO PRN (23:38)
[2022-12-29] MEDS ORDERED: ISOSORBIDE MONO EXTENDED REL 60 MG TABCR PO ONE (23:45)
[2022-12-30] MEDS: carvediloL 12.5 MG TAB PO SCH ×3 (00:47→20:00)
[2022-12-30] MEDS: ALBUMIN 25% 25 GM/100 ML VIAL IV SCH ×3 (06:20→21:00)
[2022-12-30 06:33] LABS: Albumin Globulin Ratio 1.1 (0.9-2); Albumin Level 3.4 gm/dl (3.4-5.0); BUN Creatinine Ratio 21.8 (10-20); Bilirubin,Total 0.8 mg/dl (0.2-1.0); Calcium 8.3 mg/dl (8.6-10.3); Creatinine Clr Calc Pharmacy 54.8 ml/min; Est GFR (African American) 71.4 ml/min; Est GFR (Non-African American) 61.6 ml/min; Potassium 3.1 mmol/L (3.5-5.1); Total Protein 6.4 gm/dl (6.0-8.3)
[2022-12-30 06:45] LABS: Troponin I High Sensitivity 1818.7 pg/ml (0-14)
[2022-12-30] MEDS: LEVOTHYROXINE SODIUM 50 MCG TABLET PO SCH (06:45)
[2022-12-30 06:58] LABS: INR 1.5 (0.9-1.1); Prothrombin Time 15.7 Seconds (9.0-12.0)
[2022-12-30 07:37] LABS: Estimated Average Glucose 154 mg/dl
[2022-12-30 07:46] LABS: Partial Thromboplastin Ratio 1.4; Partial Thromboplastin Time 39.2 Seconds (21.0-31.0)
[2022-12-30] MEDS: ISOSORBIDE MONO EXTENDED REL 60 MG TABCR PO SCH ×2 (08:01→19:27)
[2022-12-30] MEDS: SERTRALINE HCL 100 MG TABLET PO SCH (08:02)
[2022-12-30] MEDS: amLODIPine BESYLATE 5 MG TAB PO SCH (08:02)
--- NOTE | 2022-12-30 08:47 | Gastrointestinal Consultation ---
Date of Consultation December 30, 2022 Assessment & Plan (1) Acute pancreatitis: Readmitted with persistent pancreatitis and now known pancreatic cancer. She was to see a surgeon to evaluate for surgical options but hasn't made it there yet. Now she has had an acute elevation in her troponin. We need to treat the pancreatitis as we routinely do with fluids and pain control. She wants to eat which is actually a good sign but it is too early for her to eat. History of Present Illness Reason for Consultation: pancreatitis Attending Physician: Joce Alaniz MD History of Present Illness 82 year old female recently in the hospital for pancreatitis and diagnosed with pancreatic cancer. She was discharged several days ago feeling well but once "the medication wore off" she started hurting again. She was readmitted with pain and worsening distal pancreatitis with pseudocyst formation. Allergies Allergy/AdvReac Type Severity Reaction Status Date / Time Iodinated Contrast Media Allergy Severe Hives, Verified 12/29/22 20:18 anaphylaxis ether Allergy Unknown Unknown Verified 12/29/22 20:18 prednisone AdvReac Severe GI pain > Verified 12/29/22 20:18 pancreatitis rosiglitazone AdvReac Severe Blood clots Verified 12/29/22 20:18 atorvastatin [From Lipitor] AdvReac Intermediate Muscle Pain Verified 12/29/22 20:18 ezetimibe [From Zetia] AdvReac Intermediate Muscle Pain Verified 12/29/22 20:18 lisinopril AdvReac Intermediate Cough Verified 12/29/22 20:18 losartan AdvReac Intermediate N/V Verified 12/29/22 20:18 ranitidine AdvReac Intermediate N/V, Verified 12/29/22 20:18 achiness rosuvastatin [From Crestor] AdvReac Intermediate Muscle Pain Verified 12/29/22 20:18 Home Medications Medication Instructions Recorded Confirmed Type aspirin 81 mg tablet,delayed 81 mg PO QPM 03/19/18 12/29/22 History release isosorbide mononitrate 60 mg See Rx Instructions .Route .COMPLEX 03/19/18 12/29/22 History tablet,extended release 24 hr levothyroxine 50 mcg tablet 50 mcg PO QAM 03/19/18 12/29/22 History nitroglycerin 0.4 mg sublingual 1 tab sublingual UD PRN Chest Pain 03/19/18 12/29/22 History tablet carvedilol phosphate 40 mg 40 mg PO QAM 11/02/18 12/29/22 History capsule,[id number] multiphase (Coreg CR) carvedilol phosphate 20 mg 20 mg PO HS 05/01/19 12/29/22 History capsule,[id number] multiphase omeprazole 20 mg capsule,delayed 20 mg PO DAILY PRN Acid Reflux 05/07/20 12/29/22 History release alprazolam 0.25 mg tablet (Xanax) 0.25 mg PO TID PRN Anxiety 06/18/20 12/29/22 History cholecalciferol (vitamin D3) 50 2,000 unit PO QAM 06/18/20 12/29/22 History mcg (2,000 unit) tablet (Vitamin D3) dicyclomine 10 mg capsule 10 mg PO QID PRN Indigestion 06/18/20 12/29/22 History acetaminophen 500 mg tablet 1,000 mg PO Q6H PRN knee pain 02/24/21 12/29/22 History (Tylenol Extra Strength) warfarin 2 mg tablet 5 mg PO PM 02/24/21 12/29/22 History calcium carbonate 600 mg calcium 600 mg PO DAILY 11/09/21 12/29/22 History (1,500 mg) tablet (Calcium) amlodipine 5 mg tablet 5 mg PO DAILY 12/21/22 12/29/22 History cholestyramine (with sugar) 4 gram 1 ea PO Q OTHER DAY 12/21/22 12/29/22 History powder for susp in a packet famotidine 20 mg tablet 20 mg PO BID PRN Dyspepsia 12/21/22 12/29/22 History sertraline 100 mg tablet 100 mg PO DAILY 12/21/22 12/29/22 History ciprofloxacin HCl 500 mg tablet 500 mg PO BID 5 days #10 tabs 12/25/22 12/29/22 Rx Patient History Medical History CAD (coronary artery disease) CABG x5 in 2005 in [place] with BROWN to LAD, SVG to diagonal, SVG to OM, SVG to RPDA, and SVG to the distal RCA, PCI x3 Carotid artery stenosis LICA/FITZ <50% stenosis, Right subclavian stenosis vs. occlusion with abnormal flow noted in vertebral artery per 08/2019 carotid duplex Chronic back pain DVT (deep venous thrombosis) Dyslipidemia GERD (gastroesophageal reflux disease) HTN (hypertension) Hypothyroidism IPMN (intraductal papillary mucinous neoplasm) Osteoarthritis Pacemaker 08/03 SSS, last pacer check 01/2020 Paroxysmal atrial fibrillation Pulmonary embolism remote years ago Surgical History H/O arthroscopy of knee H/O arthroscopy of shoulder H/O parathyroidectomy History of hysterectomy Hx of adenoidectomy Hx of appendectomy Hx of cataract surgery Hx of cholecystectomy Hx of hemorrhoidectomy Hx of tonsillectomy Pacemaker placement S/P BSO (bilateral salpingo-oophorectomy) S/P CABG x 3 CABG x5 in 2005 in [place] with BROWN to LAD, SVG to diagonal, SVG to OM, SVG to RPDA, and SVG to the distal RCA Family History Mother Stroke Social History Smoking Status: Never smoker Second Hand Exposure: No; Do You Dip or Chew Tobacco: No; Hx Alcohol Use: No Hx Substance Use: No Preferred Language: Trinidadian Communication Ability: Effective Flight Deck Officer Required: No Beliefs That Will Affect Care: None marital status: Current Living Situation: Family Current Living Situation Comment: Daughter LIVES WITH PT Feels Safe at Home: Yes Safety Concerns: Feels Safe At This Time Assistive Devices: Glasses and Hearing Aid - Bilateral Review of Systems Review of Systems: All systems reviewed & are unremarkable except as noted in HPI & below Physical Exam Constitutional: WD/WN, vitals as above no acute distress Eyes: PERRL, conjunctivae normal, anicteric sclerae ENMT: external ear and nose normal, oropharynx normal Neck: trachea midline, no thyromegaly Respiratory: normal respiratory effort, lungs clear to auscultation Cardiovascular: RRR, no murmur, no edema Gastrointestinal (Abdomen): Inspection/Auscultation: abdomen normal to inspection Percussion/Palpation: + abdomen tender and abdomen soft Musculoskeletal: Extremities: no cyanosis and no clubbing Skin: no rashes, warm and dry Neurologic: PERRL, EOMI, accommodation nl, no face palsy, no dysarthria Psychiatric: Orientation: alert and oriented x 3 Results & Data Vital Signs (Past 12 Hours) Vital Signs Temp Pulse Pulse Resp BP BP Pulse Ox 12/30/22 08:25 61 12/30/22 08:21 36.6 C 61 18 143/81 H 93 12/30/22 02:51 36.7 C 14 145/84 H 92 12/29/22 23:50 36.7 C 61 16 138/83 95 12/30/22 00:00 12/29/22 23:15 63 12/29/22 23:15 12/29/22 23:16 36.7 C 60 16 145/70 H 98 12/29/22 22:00 60 18 140/74 96 12/29/22 21:23 69 Pulse Ox O2 Del Method O2 Del Method O2 Flow Rate 12/30/22 08:25 12/30/22 08:21 Room Air 12/30/22 02:51 Room Air 12/29/22 23:50 Room Air 12/30/22 00:00 95 Room Air 12/29/22 23:15 12/29/22 23:15 Room Air 12/29/22 23:16 Room Air 12/29/22 22:00 Nasal Cannula 2 12/29/22 21:23 Laboratory Results 12/30/22 12/30/22 12/30/22 Range/Units 05:27 05:27 05:27 WBC Pending (4.8-10.8) K/ul RBC Pending (4.20-5.40) M/uL Hgb Pending (12.0-16.0) g/dl Hct Pending (37.0-47.0) % MCV Pending (80.0-100.0) fL MCH Pending (25.0-34.0) pg MCHC Pending (32.0-36.0) g/dL RDW Std Deviation (36.4-46.3) fL RDW Coeff of Chelo (11.5-14.5) % Plt Count Pending (130-400) K/uL MPV (9.4-12.4) fL Immature Gran % (Auto) % Neut % (Auto) % Lymph % (Auto) % [place] % (Auto) % Eos % (Auto) % Baso % (Auto) % Neut # (Auto) (1.40-6.50) K/uL Lymph # (Auto) (1.2-3.4) K/uL [place] # (Auto) (0.11-0.59) K/uL Eos # (Auto) (0-0.50) K/uL Baso # (Auto) (0-0.2) K/uL Immature Gran # (Auto) (0.01-0.20) K/uL PT (9.0-12.0) Seconds INR (0.9-1.1) APTT 39.2 H (21.0-31.0) Seconds PTT Ratio 1.4 VBG pH (7.36-7.41) VBG pCO2 (38-50) mmHg VBG pO2 mmHg VBG HCO3 mmol/L VBG O2 Saturation % VBG Base Excess mEq/L Sodium 139 (136-145) mmol/L Potassium 3.1 L (3.5-5.1) mmol/L Chloride 103 (98-107) mmol/L Carbon Dioxide 28 (21-32) mmol/L Anion Gap 8 (3-11) BUN 19 (6-23) mg/dl Creatinine 0.87 (0.6-1.2) mg/dl Est Cr Clr Drug Dosing 54.8 Est GFR ( Amer) 71.4 ml/min Est GFR (Non-Af Amer) 61.6 ml/min BUN/Creatinine Ratio 21.8 H (10-20) Glucose 110 H (70-99(Fasting)) mg/dl Estimat Average Glucose mg/dl Hemoglobin A1c (4.5-5.6) % Calcium 8.3 L (8.6-10.3) mg/dl Magnesium (1.7-2.4) mg/dl Total Bilirubin 0.8 (0.2-1.0) mg/dl Direct Bilirubin (0-0.2) mg/dl AST 30 (13-39) U/L ALT 31 (7-52) U/L Alkaline Phosphatase 156 H (34-104) U/L Troponin I High Sens 1818.7 H* D (0-14) pg/ml B-Natriuretic Peptide (0-100) pg/ml Total Protein 6.4 (6.0-8.3) gm/dl Albumin 3.4 (3.4-5.0) gm/dl Globulin 3.0 (2.5-4.0) gm/dl Albumin/Globulin Ratio 1.1 (0.9-2) Amylase (25-115) U/L Lipase (11-82) U/L Carcinoembryonic Ag (0-2.5) ng/ml TSH (0.300-4.500) uIu/ml Urine Color Urine Appearance (Clear) Urine pH (4.5-7.5) Ur Specific [place] (1.000-1.030) Urine Protein (Negative) Urine Glucose (UA) (Negative) Urine Ketones (Negative) Urine Blood (Negative) Urine Nitrite (Negative) Urine Bilirubin (Negative) Urine Urobilinogen (Negative) Ur Leukocyte Esterase (Negative) Urine WBC (Auto) (0-5) /hpf Urine RBC (Auto) (0-4) /hpf U Hyaline Cast (Auto) (0-5) /lpf U Epithel Cells (Auto) (0-5) /lpf Urine Bacteria (Auto) (Negative) SARS-CoV-2, RNA, NAAT (NEGATIVE) 12/30/22 12/29/22 12/29/22 Range/Units 05:27 20:50 20:00 WBC (4.8-10.8) K/ul RBC (4.20-5.40) M/uL Hgb (12.0-16.0) g/dl Hct (37.0-47.0) % MCV (80.0-100.0) fL MCH (25.0-34.0) pg MCHC (32.0-36.0) g/dL RDW Std Deviation (36.4-46.3) fL RDW Coeff of Chelo (11.5-14.5) % Plt Count (130-400) K/uL MPV (9.4-12.4) fL Immature Gran % (Auto) % Neut % (Auto) % Lymph % (Auto) % [place] % (Auto) % Eos % (Auto) % Baso % (Auto) % Neut # (Auto) (1.40-6.50) K/uL Lymph # (Auto) (1.2-3.4) K/uL [place] # (Auto) (0.11-0.59) K/uL Eos # (Auto) (0-0.50) K/uL Baso # (Auto) (0-0.2) K/uL Immature Gran # (Auto) (0.01-0.20) K/uL PT 15.7 H (9.0-12.0) Seconds INR 1.5 H (0.9-1.1) APTT (21.0-31.0) Seconds PTT Ratio VBG pH (7.36-7.41) VBG pCO2 (38-50) mmHg VBG pO2 mmHg VBG HCO3 mmol/L VBG O2 Saturation % VBG Base Excess mEq/L Sodium (136-145) mmol/L Potassium (3.5-5.1) mmol/L Chloride (98-107) mmol/L Carbon Dioxide (21-32) mmol/L Anion Gap (3-11) BUN (6-23) mg/dl Creatinine (0.6-1.2) mg/dl Est Cr Clr Drug Dosing Est GFR ( Amer) ml/min Est GFR (Non-Af Amer) ml/min BUN/Creatinine Ratio (10-20) Glucose (70-99(Fasting)) mg/dl Estimat Average Glucose mg/dl Hemoglobin A1c (4.5-5.6) % Calcium (8.6-10.3) mg/dl Magnesium (1.7-2.4) mg/dl Total Bilirubin (0.2-1.0) mg/dl Direct Bilirubin (0-0.2) mg/dl AST (13-39) U/L ALT (7-52) U/L Alkaline Phosphatase (34-104) U/L Troponin I High Sens (0-14) pg/ml B-Natriuretic Peptide (0-100) pg/ml Total Protein (6.0-8.3) gm/dl Albumin (3.4-5.0) gm/dl Globulin (2.5-4.0) gm/dl Albumin/Globulin Ratio (0.9-2) Amylase (25-115) U/L Lipase (11-82) U/L Carcinoembryonic Ag (0-2.5) ng/ml TSH (0.300-4.500) uIu/ml Urine Color Yellow Urine Appearance Clear (Clear) Urine pH 5.5 (4.5-7.5) Ur Specific [place] 1.009 (1.000-1.030) Urine Protein Trace H (Negative) Urine Glucose (UA) Negative (Negative) Urine Ketones 1+ H (Negative) Urine Blood 1+ H (Negative) Urine Nitrite Negative (Negative) Urine Bilirubin Negative (Negative) Urine Urobilinogen Negative (Negative) Ur Leukocyte Esterase Negative (Negative) Urine WBC (Auto) 1-5 (0-5) /hpf Urine RBC (Auto) 0-4 (0-4) /hpf U Hyaline Cast (Auto) 1-5 (0-5) /lpf U Epithel Cells (Auto) 10-20 H (0-5) /lpf Urine Bacteria (Auto) Negative (Negative) SARS-CoV-2, RNA, NAAT NEGATIVE (NEGATIVE) 12/29/22 12/29/22 12/29/22 Range/Units 19:03 19:03 19:03 WBC (4.8-10.8) K/ul RBC (4.20-5.40) M/uL Hgb (12.0-16.0) g/dl Hct (37.0-47.0) % MCV (80.0-100.0) fL MCH (25.0-34.0) pg MCHC (32.0-36.0) g/dL RDW Std Deviation (36.4-46.3) fL RDW Coeff of [place] (11.5-14.5) % Plt Count (130-400) K/uL MPV (9.4-12.4) fL Immature Gran % (Auto) % Neut % (Auto) % Lymph % (Auto) % [place] % (Auto) % Eos % (Auto) % Baso % (Auto) % Neut # (Auto) (1.40-6.50) K/uL Lymph # (Auto) (1.2-3.4) K/uL [place] # (Auto) (0.11-0.59) K/uL Eos # (Auto) (0-0.50) K/uL Baso # (Auto) (0-0.2) K/uL Immature Gran # (Auto) (0.01-0.20) K/uL PT (9.0-12.0) Seconds INR (0.9-1.1) APTT (21.0-31.0) Seconds PTT Ratio VBG pH 7.34 L (7.36-7.41) VBG pCO2 47 (38-50) mmHg VBG pO2 35 mmHg VBG HCO3 25 mmol/L VBG O2 Saturation 60.3 % VBG Base Excess -0.8 mEq/L Sodium (136-145) mmol/L Potassium (3.5-5.1) mmol/L Chloride (98-107) mmol/L Carbon Dioxide (21-32) mmol/L Anion Gap (3-11) BUN (6-23) mg/dl Creatinine (0.6-1.2) mg/dl Est Cr Clr Drug Dosing Est GFR ( Amer) ml/min Est GFR (Non-Af Amer) ml/min BUN/Creatinine Ratio (10-20) Glucose (70-99(Fasting)) mg/dl Estimat Average Glucose 154 mg/dl Hemoglobin A1c 7.0 H (4.5-5.6) % Calcium (8.6-10.3) mg/dl Magnesium (1.7-2.4) mg/dl Total Bilirubin (0.2-1.0) mg/dl Direct Bilirubin (0-0.2) mg/dl AST (13-39) U/L ALT (7-52) U/L Alkaline Phosphatase (34-104) U/L Troponin I High Sens (0-14) pg/ml B-Natriuretic Peptide (0-100) pg/ml Total Protein (6.0-8.3) gm/dl Albumin (3.4-5.0) gm/dl Globulin (2.5-4.0) gm/dl Albumin/Globulin Ratio (0.9-2) Amylase 152 H (25-115) U/L Lipase (11-82) U/L Carcinoembryonic Ag (0-2.5) ng/ml TSH (0.300-4.500) uIu/ml Urine Color Urine Appearance (Clear) Urine pH (4.5-7.5) Ur Specific [place] (1.000-1.030) Urine Protein (Negative) Urine Glucose (UA) (Negative) Urine Ketones (Negative) Urine Blood (Negative) Urine Nitrite (Negative) Urine Bilirubin (Negative) Urine Urobilinogen (Negative) Ur Leukocyte Esterase (Negative) Urine WBC (Auto) (0-5) /hpf Urine RBC (Auto) (0-4) /hpf U Hyaline Cast (Auto) (0-5) /lpf U Epithel Cells (Auto) (0-5) /lpf Urine Bacteria (Auto) (Negative) SARS-CoV-2, RNA, NAAT (NEGATIVE) 12/29/22 12/29/22 12/29/22 Range/Units 17:33 17:33 17:33 WBC (4.8-10.8) K/ul RBC (4.20-5.40) M/uL Hgb (12.0-16.0) g/dl Hct (37.0-47.0) % MCV (80.0-100.0) fL MCH (25.0-34.0) pg MCHC (32.0-36.0) g/dL RDW Std Deviation (36.4-46.3) fL RDW Coeff of [place] (11.5-14.5) % Plt Count (130-400) K/uL MPV (9.4-12.4) fL Immature Gran % (Auto) % Neut % (Auto) % Lymph % (Auto) % [place] % (Auto) % Eos % (Auto) % Baso % (Auto) % Neut # (Auto) (1.40-6.50) K/uL Lymph # (Auto) (1.2-3.4) K/uL [place] # (Auto) (0.11-0.59) K/uL Eos # (Auto) (0-0.50) K/uL Baso # (Auto) (0-0.2) K/uL Immature Gran # (Auto) (0.01-0.20) K/uL PT (9.0-12.0) Seconds INR (0.9-1.1) APTT (21.0-31.0) Seconds PTT Ratio VBG pH (7.36-7.41) VBG pCO2 (38-50) mmHg VBG pO2 mmHg VBG HCO3 mmol/L VBG O2 Saturation % VBG Base Excess mEq/L Sodium (136-145) mmol/L Potassium (3.5-5.1) mmol/L Chloride (98-107) mmol/L Carbon Dioxide (21-32) mmol/L Anion Gap (3-11) BUN (6-23) mg/dl Creatinine (0.6-1.2) mg/dl Est Cr Clr Drug Dosing Est GFR ( Amer) ml/min Est GFR (Non-Af Amer) ml/min BUN/Creatinine Ratio (10-20) Glucose (70-99(Fasting)) mg/dl Estimat Average Glucose mg/dl Hemoglobin A1c (4.5-5.6) % Calcium (8.6-10.3) mg/dl Magnesium (1.7-2.4) mg/dl Total Bilirubin (0.2-1.0) mg/dl Direct Bilirubin (0-0.2) mg/dl AST (13-39) U/L ALT (7-52) U/L Alkaline Phosphatase (34-104) U/L Troponin I High Sens (0-14) pg/ml B-Natriuretic Peptide 1106 H (0-100) pg/ml Total Protein (6.0-8.3) gm/dl Albumin (3.4-5.0) gm/dl Globulin (2.5-4.0) gm/dl Albumin/Globulin Ratio (0.9-2) Amylase (25-115) U/L Lipase (11-82) U/L Carcinoembryonic Ag 1.5 (0-2.5) ng/ml TSH 3.117 (0.300-4.500) uIu/ml Urine Color Urine Appearance (Clear) Urine pH (4.5-7.5) Ur Specific [place] (1.000-1.030) Urine Protein (Negative) Urine Glucose (UA) (Negative) Urine Ketones (Negative) Urine Blood (Negative) Urine Nitrite (Negative) Urine Bilirubin (Negative) Urine Urobilinogen (Negative) Ur Leukocyte Esterase (Negative) Urine WBC (Auto) (0-5) /hpf Urine RBC (Auto) (0-4) /hpf U Hyaline Cast (Auto) (0-5) /lpf U Epithel Cells (Auto) (0-5) /lpf Urine Bacteria (Auto) (Negative) SARS-CoV-2, RNA, NAAT (NEGATIVE) 12/29/22 12/29/22 12/29/22 Range/Units 17:33 17:33 17:33 WBC 15.30 H (4.8-10.8) K/ul RBC 4.35 (4.20-5.40) M/uL Hgb 12.6 (12.0-16.0) g/dl Hct 38.6 (37.0-47.0) % MCV 88.7 (80.0-100.0) fL MCH 29.0 (25.0-34.0) pg MCHC 32.6 (32.0-36.0) g/dL RDW Std Deviation 45.0 (36.4-46.3) fL RDW Coeff of Chelo 13.9 (11.5-14.5) % Plt Count 180 (130-400) K/uL MPV 12.1 (9.4-12.4) fL Immature Gran % (Auto) 0.7 % Neut % (Auto) 81.9 % Lymph % (Auto) 6.8 % [place] % (Auto) 9.7 % Eos % (Auto) 0.6 % Baso % (Auto) 0.3 % Neut # (Auto) 12.53 H (1.40-6.50) K/uL Lymph # (Auto) 1.04 L (1.2-3.4) K/uL [place] # (Auto) 1.49 H (0.11-0.59) K/uL Eos # (Auto) 0.09 (0-0.50) K/uL Baso # (Auto) 0.05 (0-0.2) K/uL Immature Gran # (Auto) 0.10 (0.01-0.20) K/uL PT 16.4 H (9.0-12.0) Seconds INR 1.5 H (0.9-1.1) APTT 33.1 H (21.0-31.0) Seconds PTT Ratio 1.2 VBG pH (7.36-7.41) VBG pCO2 (38-50) mmHg VBG pO2 mmHg VBG HCO3 mmol/L VBG O2 Saturation % VBG Base Excess mEq/L Sodium 136 (136-145) mmol/L Potassium 3.6 (3.5-5.1) mmol/L Chloride 103 (98-107) mmol/L Carbon Dioxide 24 (21-32) mmol/L Anion Gap 9 (3-11) BUN 21 (6-23) mg/dl Creatinine 0.97 (0.6-1.2) mg/dl Est Cr Clr Drug Dosing Not Reportable Est GFR ( Amer) 62.6 ml/min Est GFR (Non-Af Amer) 54.0 ml/min BUN/Creatinine Ratio 21.6 H (10-20) Glucose 136 H (70-99(Fasting)) mg/dl Estimat Average Glucose mg/dl Hemoglobin A1c (4.5-5.6) % Calcium 8.7 (8.6-10.3) mg/dl Magnesium 2.1 (1.7-2.4) mg/dl Total Bilirubin 1.0 (0.2-1.0) mg/dl Direct Bilirubin 0.4 H (0-0.2) mg/dl AST 29 (13-39) U/L ALT 36 (7-52) U/L Alkaline Phosphatase 145 H (34-104) U/L Troponin I High Sens 26.4 H (0-14) pg/ml B-Natriuretic Peptide (0-100) pg/ml Total Protein 6.8 (6.0-8.3) gm/dl Albumin 3.4 (3.4-5.0) gm/dl Globulin (2.5-4.0) gm/dl Albumin/Globulin Ratio (0.9-2) Amylase (25-115) U/L Lipase 128 H (11-82) U/L Carcinoembryonic Ag (0-2.5) ng/ml TSH (0.300-4.500) uIu/ml Urine Color Urine Appearance (Clear) Urine pH (4.5-7.5) Ur Specific [place] (1.000-1.030) Urine Protein (Negative) Urine Glucose (UA) (Negative) Urine Ketones (Negative) Urine Blood (Negative) Urine Nitrite (Negative) Urine Bilirubin (Negative) Urine Urobilinogen (Negative) Ur Leukocyte Esterase (Negative) Urine WBC (Auto) (0-5) /hpf Urine RBC (Auto) (0-4) /hpf U Hyaline Cast (Auto) (0-5) /lpf U Epithel Cells (Auto) (0-5) /lpf Urine Bacteria (Auto) (Negative) SARS-CoV-2, RNA, NAAT (NEGATIVE) Diagnostic Findings Abdomen/Pelvis CT 12/29/22 18:07 Exam(s): CT ABDOMEN + PELVIS Without Contrast EXAM: CT Abdomen and Pelvis Without Intravenous Contrast CLINICAL HISTORY: Reason for exam: ro sbo. TECHNIQUE: Axial computed tomography images of the abdomen and pelvis without intravenous contrast. CTDI is 26.19 mGy and DLP is 1447.85 mGy-cm. Automated exposure control was utilized for the study. A dose lowering technique was utilized adhering to the principles of ALARA. COMPARISON: CT abdomen/pelvis on 02/24/2018 FINDINGS: Lung bases: Unremarkable. No mass. No consolidation. ABDOMEN: Liver: Hepatomegaly. Gallbladder and bile ducts: Prior cholecystectomy. No ductal dilation. Pancreas: Peripancreatic fluid is concerning for acute pancreatitis. Cystic structures in the pancreatic body and tail measure approximately 3. 3 x 3.3 x 3.4 cm and 2.4 x 1.8 x 2.3 cm, concerning for pseudocysts, increased in size compared to prior exam. Spleen: Small splenule. Adrenals: Unremarkable. No mass. Kidneys and ureters: Nonspecific bilateral perinephric fat stranding. No hydronephrosis or stone. Left renal cyst. Stomach and bowel: Evaluation of the stomach is limited by under distention. Diverticulosis without evidence of diverticulitis. No small bowel obstruction. PELVIS: Appendix: Appendix is not visualized on this exam. Bladder: Underdistended bladder limits evaluation. No stones. Reproductive: Prior hysterectomy. ABDOMEN and PELVIS: Intraperitoneal space: Small amount of fluid in the pelvis. No free air. Bones/joints: Degenerative changes of the spine. No acute fracture. No dislocation. Soft tissues: Injection granulomas in the left gluteal soft tissues. Small fat-containing umbilical hernia. Vasculature: Atherosclerotic changes of the vasculature. Ectasia of the abdominal aorta. Phleboliths in the pelvis. No abdominal aortic aneurysm. Lymph nodes: Unremarkable. No enlarged lymph nodes. Tubes, lines and devices: Median sternotomy changes. Pacer wires partially visualized heart. Coronary artery calcifications. IMPRESSION: 1. Peripancreatic fluid is concerning for acute pancreatitis. Cystic structures in the pancreatic body and tail measure approximately 3.3 x 3. 3 x 3.4 cm and 2.4 x 1.8 x 2.3 cm, concerning for pseudocysts, increased in size compared to prior exam. 2. Small amount of fluid in the pelvis. 3. Hepatomegaly. Electronically signed by: Palma Perez M.D. 12/29/22 19:39 PM Chest X-Ray 12/29/22 18:07 SINGLE VIEW CHEST CLINICAL HISTORY: Dyspnea FINDINGS: An AP, portable, upright chest radiograph is compared to study dated 11/09/2021. The patient is status post midline sternotomy. A 2-lead cardiac pacemaker is unchanged in position and partially obscures the left upper chest. The heart is enlarged noting atherosclerotic calcification of the thoracic aorta. The pulmonary vasculature is noncongested. Chronic interstitial thickening is similar to previous. There is chronic elevation of the right hemidiaphragm with bibasilar scarring/atelectasis. No airspace consolidation or large pleural effusion is identified. No pneumothorax is seen. The skeletal structures are osteopenic. There is chronic posttraumatic deformity of the right proximal humerus. Arthritic changes seen in the shoulders. IMPRESSION: 1. Cardiomegaly and cardiac pacemaker without radiographic evidence of congestive failure. 2. No airspace consolidation or large pleural effusion is identified. ACT 112: Negative or not required by law. Electronically signed by: Baljeet Avitia M.D. 12/29/2022 6:34 PM
[2022-12-30] MEDS ORDERED: POTASSIUM CHLORIDE CRTAB 20 MEQ TABCR PO ONE (08:51)
--- NOTE | 2022-12-30 09:08 | Consultation ---
Date of Consultation December 30, 2022 Assessment & Plan (1) CAD (coronary artery disease): As we determine how to approach her newly diagnosed pancreatic adenocarcinoma, a melvin issue will be whether this octogenarian with cardiac disease is sufficiently fit to be considered for definitive surgical approach. If so, indications thus far that she has limited disease and would be a candidate for perhaps quick laparoscopic review to rule out more occult metastatic disease within the abdomen and then surgical resection. More formal cardiology review with respect to her candidacy for such surgery would be an important component of her ultimate evaluation and treatment planning (2) Pulmonary embolism: Remote history of apparent pulmonary embolism. Already on full dose anticoagulation and low-dose aspirin which should give sufficient prophylaxis. New diagnosis pancreatic adenocarcinoma implies that she will be even more "hypercoagulable" and her pharmacologic therapy should be complemented by vigorous nonpharmacologic interventions to minimize the risk for clot (ambulation, sequential compression stockings, etc.) and a low threshold for work-up of any even modestly suggestive new symptomatology. At the same time, the combination of antiplatelet and full dose anticoagulant therapy does put her at an increased risk for bleeding and will need to be alert to any signs or symptoms for that (3) Pancreatic adenocarcinoma: Provisional cT2 cN0 cM0 / IB adenocarcinoma of the body/tail of the pancreas. Imaging does not suggest any liz, liver, or distant metastases. Initial treatment would be resection if feasible but that will require a combination of cardiology assessment that she is even a candidate for aggressive surgery and if so, surgery oncology assessment for the need for either additional radiologic or laparoscopic assessment for more occult metastases and then the feasibility of an a priori resection. Chemotherapy would certainly play a role even in early stage pancreas cancer as postsurgical adjuvant with some evolving interest in whether neoadjuvant treatment prior to surgery is helpful. If surgery is not an option, there could certainly be palliative chemotherapy options or even some consideration of a combination chemotherapy/radiation approach. With apparently limited disease, prognosis is intermediate but even with such early presentations unfortunately disease relapse is uncomfortably common. I am unable to speak with the patient [id number] but we will also need to ascertain what she perceives as appropriate parameters of care from her philosophical standpoint as embarking on surgery is a major undertaking and even chemotherapy and radiation are not without potentially significant morbidity or even some mortality risk Plan 1. Immediate issue will be to manage her acute cardiac, fluid, and inflammatory pancreatic issues as per the hospitalist, gastroenterology, and potentially cardiology teams 2. Determination as to whether or not surgery will play a role in the management of her pancreatic adenocarcinoma is a melvin prelude to any medical oncology discussions as the role for chemotherapy will be very much impacted by whether or not surgery is going to be included in her care. The surgery itself will need to be preceded by a general assessment of her fitness for proceeding with a major operation particular focused on her cardiac status. Additionally, run up to surgery would probably include potential laparoscopic assessment for occult more locally advanced disease than is evident from imaging and/or more sophisticated imaging of the liver and regional lymph nodes as well as the anatomy of the pancreas itself with multiphasic 2-dimensional imaging (MRI might be preferred but with her pacemaker this may need to be done with CT scanning) with or without consideration of PET scan. 3. Parallel with these technical assessments and interventions there should be a discussion with the patient regarding her own philosophical perspectives and how aggressively she is willing to pursue this diagnosis where even highly aggressive interventions unfortunately are not consistently successful in achieving long-term "cure." 4. She has been working with the [facility] system and may prefer medical oncology follow-up through one of their teams. Would suggest that when she is sufficiently stable for discharge that she pursue her surgical evaluation and once that is set, schedule a follow-up medical oncology appointment as an outpatient either with our team or the [facility] team in the days after that surgical assessment is scheduled Do not see that any medical oncology intervention is acutely indicated during this admission so will "sign off" but please do not hesitate to call if additional questions do arise while she is here. If she would like to follow-up with our team please ask her to call the cancer center at [phone] to arrange an appointment there, scheduling that after her surgical appointment. History of Present Illness Reason for Consultation: Newly diagnosed pancreatic adenocarcinoma Attending Physician: Joce Alaniz MD History of Present Illness See also discharge summary from 12/25/2022 and current hospital admission gastroenterology consultation. Please note that this is a consultation constructed purely from review of the electronic database. I am working remotely and unable to speak directly with the patient or examine her. I reviewed the previous and current admission records which seem to be an accurate source of relevant information but I am completely reliant on that for my conclusions and perspectives. If there are urgent concerns regarding the need for more direct [id number] review, Dr. Noriega will be covering. The evaluation is consultative in nature and all patient care and treatment decisions can either be accepted or rejected by the patient's primary hospital- based treating physician using their own independent medical judgment for the patient. Patient's medical history particularly focuses on cardiac issues status post previous CABG and also with a pacemaker and history of paroxysmal atrial fibrillation Records suggest no history of personal malignancy and only mention in previous records of family history relates to atherosclerotic issues She had just been discharged after admission for abdominal pain during which an EGD/EUS sampled the body/tail lesion of the pancreas with cytology positive for adeocarcinoma Apparently a surgical review is pending but she is now readmitted with relapse of abdominal pain/pancreatitis prior to that being completed Allergies Allergy/AdvReac Type Severity Reaction Status Date / Time Iodinated Contrast Media Allergy Severe Hives, Verified 12/29/22 20:18 anaphylaxis ether Allergy Unknown Unknown Verified 12/29/22 20:18 prednisone AdvReac Severe GI pain > Verified 12/29/22 20:18 pancreatitis rosiglitazone AdvReac Severe Blood clots Verified 12/29/22 20:18 atorvastatin [From Lipitor] AdvReac Intermediate Muscle Pain Verified 12/29/22 20:18 ezetimibe [From Zetia] AdvReac Intermediate Muscle Pain Verified 12/29/22 20:18 lisinopril AdvReac Intermediate Cough Verified 12/29/22 20:18 losartan AdvReac Intermediate N/V Verified 12/29/22 20:18 ranitidine AdvReac Intermediate N/V, Verified 12/29/22 20:18 achiness rosuvastatin [From Crestor] AdvReac Intermediate Muscle Pain Verified 12/29/22 20:18 Home Medications Medication Instructions Recorded Confirmed Type aspirin 81 mg tablet,delayed 81 mg PO QPM 03/19/18 12/29/22 History release isosorbide mononitrate 60 mg See Rx Instructions .Route .COMPLEX 03/19/18 12/29/22 History tablet,extended release 24 hr levothyroxine 50 mcg tablet 50 mcg PO QAM 03/19/18 12/29/22 History nitroglycerin 0.4 mg sublingual 1 tab sublingual UD PRN Chest Pain 03/19/18 12/29/22 History tablet carvedilol phosphate 40 mg 40 mg PO QAM 11/02/18 12/29/22 History capsule,[id number] multiphase (Coreg CR) carvedilol phosphate 20 mg 20 mg PO HS 05/01/19 12/29/22 History capsule,[id number] multiphase omeprazole 20 mg capsule,delayed 20 mg PO DAILY PRN Acid Reflux 05/07/20 12/29/22 History release alprazolam 0.25 mg tablet (Xanax) 0.25 mg PO TID PRN Anxiety 06/18/20 12/29/22 History cholecalciferol (vitamin D3) 50 2,000 unit PO QAM 06/18/20 12/29/22 History mcg (2,000 unit) tablet (Vitamin D3) dicyclomine 10 mg capsule 10 mg PO QID PRN Indigestion 06/18/20 12/29/22 History acetaminophen 500 mg tablet 1,000 mg PO Q6H PRN knee pain 02/24/21 12/29/22 History (Tylenol Extra Strength) warfarin 2 mg tablet 5 mg PO PM 02/24/21 12/29/22 History calcium carbonate 600 mg calcium 600 mg PO DAILY 11/09/21 12/29/22 History (1,500 mg) tablet (Calcium) amlodipine 5 mg tablet 5 mg PO DAILY 12/21/22 12/29/22 History cholestyramine (with sugar) 4 gram 1 ea PO Q OTHER DAY 12/21/22 12/29/22 History powder for susp in a packet famotidine 20 mg tablet 20 mg PO BID PRN Dyspepsia 12/21/22 12/29/22 History sertraline 100 mg tablet 100 mg PO DAILY 12/21/22 12/29/22 History ciprofloxacin HCl 500 mg tablet 500 mg PO BID 5 days #10 tabs 12/25/22 12/29/22 Rx Patient History Medical History (Updated 12/30/22 @ 09:17 by Pierce Kumar MD) CAD (coronary artery disease) CABG x5 in 2005 in [place] with BROWN to LAD, SVG to diagonal, SVG to OM, SVG to RPDA, and SVG to the distal RCA, PCI x3 Carotid artery stenosis LICA/FITZ <50% stenosis, Right subclavian stenosis vs. occlusion with abnormal flow noted in vertebral artery per 08/2019 carotid duplex Chronic back pain DVT (deep venous thrombosis) Dyslipidemia GERD (gastroesophageal reflux disease) HTN (hypertension) Hypothyroidism IPMN (intraductal papillary mucinous neoplasm) Osteoarthritis Pacemaker 2/2 SSS, last pacer check 01/2020 Paroxysmal atrial fibrillation Pulmonary embolism remote years ago Surgical History H/O arthroscopy of knee H/O arthroscopy of shoulder H/O parathyroidectomy History of hysterectomy Hx of adenoidectomy Hx of appendectomy Hx of cataract surgery Hx of cholecystectomy Hx of hemorrhoidectomy Hx of tonsillectomy Pacemaker placement S/P BSO (bilateral salpingo-oophorectomy) S/P CABG x 3 CABG x5 in 2005 in [place] with BROWN to LAD, SVG to diagonal, SVG to OM, SVG to RPDA, and SVG to the distal RCA Family History Mother Stroke Social History Smoking Status: Never smoker Second Hand Exposure: No; Do You Dip or Chew Tobacco: No; Hx Alcohol Use: No Hx Substance Use: No Preferred Language: Macedonian Communication Ability: Effective Belly Dump Driver Required: No Beliefs That Will Affect Care: None marital status: Current Living Situation: Family Current Living Situation Comment: Daughter LIVES WITH PT Feels Safe at Home: Yes Safety Concerns: Feels Safe At This Time Assistive Devices: Glasses and Hearing Aid - Bilateral Physical Exam Physical Exam: Vital signs are currently stable. Examination in the emergency department indicated relatively stable lung and cardiac exams, no acute concerning findings on abdominal exam, and no suggestion of DVT or focal neurological change Results & Data Vital Signs (Past 12 Hours) Vital Signs Temp Pulse Pulse Resp BP BP Pulse Ox 12/30/22 08:00 12/30/22 08:25 61 12/30/22 08:21 36.6 C 61 18 143/81 H 93 12/30/22 02:51 36.7 C 14 145/84 H 92 12/29/22 23:50 36.7 C 61 16 138/83 95 12/30/22 00:00 12/29/22 23:15 63 12/29/22 23:15 06/30/23 23:16 36.7 C 60 16 145/70 H 98 12/29/22 22:00 60 18 140/74 96 12/29/22 21:23 69 Pulse Ox O2 Del Method O2 Del Method O2 Flow Rate 12/30/22 08:00 Room Air 12/30/22 08:25 12/30/22 08:21 Room Air 12/30/22 02:51 Room Air 12/29/22 23:50 Room Air 12/30/22 00:00 95 Room Air 12/29/22 23:15 12/29/22 23:15 Room Air 12/29/22 23:16 Room Air 12/29/22 22:00 Nasal Cannula 2 12/29/22 21:23 Laboratory Results Laboratory Results - last 24 hr 12/29/22 12/29/22 12/29/22 17:33 17:33 17:33 WBC 15.30 H RBC 4.35 Hgb 12.6 Hct 38.6 MCV 88.7 MCH 29.0 MCHC 32.6 RDW Std Deviation 45.0 RDW Coeff of [place] 13.9 Plt Count 180 MPV 12.1 Immature Gran % (Auto) 0.7 Neut % (Auto) 81.9 Lymph % (Auto) 6.8 Andrew % (Auto) 9.7 Eos % (Auto) 0.6 Baso % (Auto) 0.3 Neut # (Auto) 12.53 H Lymph # (Auto) 1.04 L Andrew # (Auto) 1.49 H Eos # (Auto) 0.09 Baso # (Auto) 0.05 Immature Gran # (Auto) 0.10 PT 16.4 H INR 1.5 H APTT 33.1 H PTT Ratio 1.2 VBG pH VBG pCO2 VBG pO2 VBG HCO3 VBG O2 Saturation VBG Base Excess Sodium 136 Potassium 3.6 Chloride 103 Carbon Dioxide 24 Anion Gap 9 BUN 21 Creatinine 0.97 Est Cr Clr Drug Dosing Not Reportable Est GFR ( Amer) 62.6 Est GFR (Non-Af Amer) 54.0 BUN/Creatinine Ratio 21.6 H Glucose 136 H Estimat Average Glucose Hemoglobin A1c Calcium 8.7 Magnesium 2.1 Total Bilirubin 1.0 Direct Bilirubin 0.4 H AST 29 ALT 36 Alkaline Phosphatase 145 H Troponin I High Sens 26.4 H B-Natriuretic Peptide Total Protein 6.8 Albumin 3.4 Globulin Albumin/Globulin Ratio Amylase Lipase 128 H Carcinoembryonic Ag TSH Urine Color Urine Appearance Urine pH Ur Specific [place] Urine Protein Urine Glucose (UA) Urine Ketones Urine Blood Urine Nitrite Urine Bilirubin Urine Urobilinogen Ur Leukocyte Esterase Urine WBC (Auto) Urine RBC (Auto) U Hyaline Cast (Auto) U Epithel Cells (Auto) Urine Bacteria (Auto) SARS-CoV-2, RNA, NAAT 12/29/22 12/29/22 12/29/22 17:33 17:33 17:33 WBC RBC Hgb Hct MCV MCH MCHC RDW Std Deviation RDW Coeff of [place] Plt Count MPV Immature Gran % (Auto) Neut % (Auto) Lymph % (Auto) Andrew % (Auto) Eos % (Auto) Baso % (Auto) Neut # (Auto) Lymph # (Auto) Andrew # (Auto) Eos # (Auto) Baso # (Auto) Immature Gran # (Auto) PT INR APTT PTT Ratio VBG pH VBG pCO2 VBG pO2 VBG HCO3 VBG O2 Saturation VBG Base Excess Sodium Potassium Chloride Carbon Dioxide Anion Gap BUN Creatinine Est Cr Clr Drug Dosing Est GFR ( Amer) Est GFR (Non-Af Amer) BUN/Creatinine Ratio Glucose Estimat Average Glucose Hemoglobin A1c Calcium Magnesium Total Bilirubin Direct Bilirubin AST ALT Alkaline Phosphatase Troponin I High Sens B-Natriuretic Peptide 1106 H Total Protein Albumin Globulin Albumin/Globulin Ratio Amylase Lipase Carcinoembryonic Ag 1.5 TSH 3.117 Urine Color Urine Appearance Urine pH Ur Specific [place] Urine Protein Urine Glucose (UA) Urine Ketones Urine Blood Urine Nitrite Urine Bilirubin Urine Urobilinogen Ur Leukocyte Esterase Urine WBC (Auto) Urine RBC (Auto) U Hyaline Cast (Auto) U Epithel Cells (Auto) Urine Bacteria (Auto) SARS-CoV-2, RNA, NAAT 12/29/22 12/29/22 12/29/22 19:03 19:03 19:03 WBC RBC Hgb Hct MCV MCH MCHC RDW Std Deviation RDW Coeff of [place] Plt Count MPV Immature Gran % (Auto) Neut % (Auto) Lymph % (Auto) Andrew % (Auto) Eos % (Auto) Baso % (Auto) Neut # (Auto) Lymph # (Auto) Andrew # (Auto) Eos # (Auto) Baso # (Auto) Immature Gran # (Auto) PT INR APTT PTT Ratio VBG pH 7.34 L VBG pCO2 47 VBG pO2 35 VBG HCO3 25 VBG O2 Saturation 60.3 VBG Base Excess -0.8 Sodium Potassium Chloride Carbon Dioxide Anion Gap BUN Creatinine Est Cr Clr Drug Dosing Est GFR ( Amer) Est GFR (Non-Af Amer) BUN/Creatinine Ratio Glucose Estimat Average Glucose 154 Hemoglobin A1c 7.0 H Calcium Magnesium Total Bilirubin Direct Bilirubin AST ALT Alkaline Phosphatase Troponin I High Sens B-Natriuretic Peptide Total Protein Albumin Globulin Albumin/Globulin Ratio Amylase 152 H Lipase Carcinoembryonic Ag TSH Urine Color Urine Appearance Urine pH Ur Specific [place] Urine Protein Urine Glucose (UA) Urine Ketones Urine Blood Urine Nitrite Urine Bilirubin Urine Urobilinogen Ur Leukocyte Esterase Urine WBC (Auto) Urine RBC (Auto) U Hyaline Cast (Auto) U Epithel Cells (Auto) Urine Bacteria (Auto) SARS-CoV-2, RNA, NAAT 12/29/22 12/29/22 12/30/22 20:00 20:50 05:27 WBC RBC Hgb Hct MCV MCH MCHC RDW Std Deviation RDW Coeff of [place] Plt Count MPV Immature Gran % (Auto) Neut % (Auto) Lymph % (Auto) Andrew % (Auto) Eos % (Auto) Baso % (Auto) Neut # (Auto) Lymph # (Auto) Andrew # (Auto) Eos # (Auto) Baso # (Auto) Immature Gran # (Auto) PT 15.7 H INR 1.5 H APTT PTT Ratio VBG pH VBG pCO2 VBG pO2 VBG HCO3 VBG O2 Saturation VBG Base Excess Sodium Potassium Chloride Carbon Dioxide Anion Gap BUN Creatinine Est Cr Clr Drug Dosing Est GFR ( Amer) Est GFR (Non-Af Amer) BUN/Creatinine Ratio Glucose Estimat Average Glucose Hemoglobin A1c Calcium Magnesium Total Bilirubin Direct Bilirubin AST ALT Alkaline Phosphatase Troponin I High Sens B-Natriuretic Peptide Total Protein Albumin Globulin Albumin/Globulin Ratio Amylase Lipase Carcinoembryonic Ag TSH Urine Color Yellow Urine Appearance Clear Urine pH 5.5 Ur Specific [place] 1.009 Urine Protein Trace H Urine Glucose (UA) Negative Urine Ketones 1+ H Urine Blood 1+ H Urine Nitrite Negative Urine Bilirubin Negative Urine Urobilinogen Negative Ur Leukocyte Esterase Negative Urine WBC (Auto) 1-5 Urine RBC (Auto) 0-4 U Hyaline Cast (Auto) 1-5 U Epithel Cells (Auto) 10-20 H Urine Bacteria (Auto) Negative SARS-CoV-2, RNA, NAAT NEGATIVE 12/30/22 12/30/22 12/30/22 05:27 05:27 05:27 WBC Pending RBC Pending Hgb Pending Hct Pending MCV Pending MCH Pending MCHC Pending RDW Std Deviation RDW Coeff of [place] Plt Count Pending MPV Immature Gran % (Auto) Neut % (Auto) Lymph % (Auto) Andrew % (Auto) Eos % (Auto) Baso % (Auto) Neut # (Auto) Lymph # (Auto) Andrew # (Auto) Eos # (Auto) Baso # (Auto) Immature Gran # (Auto) PT INR APTT 39.2 H PTT Ratio 1.4 VBG pH VBG pCO2 VBG pO2 VBG HCO3 VBG O2 Saturation VBG Base Excess Sodium 139 Potassium 3.1 L Chloride 103 Carbon Dioxide 28 Anion Gap 8 BUN 19 Creatinine 0.87 Est Cr Clr Drug Dosing 54.8 Est GFR ( Amer) 71.4 Est GFR (Non-Af Amer) 61.6 BUN/Creatinine Ratio 21.8 H Glucose 110 H Estimat Average Glucose Hemoglobin A1c Calcium 8.3 L Magnesium Total Bilirubin 0.8 Direct Bilirubin AST 30 ALT 31 Alkaline Phosphatase 156 H Troponin I High Sens 1818.7 H* D B-Natriuretic Peptide Total Protein 6.4 Albumin 3.4 Globulin 3.0 Albumin/Globulin Ratio 1.1 Amylase Lipase Carcinoembryonic Ag TSH Urine Color Urine Appearance Urine pH Ur Specific [place] Urine Protein Urine Glucose (UA) Urine Ketones Urine Blood Urine Nitrite Urine Bilirubin Urine Urobilinogen Ur Leukocyte Esterase Urine WBC (Auto) Urine RBC (Auto) U Hyaline Cast (Auto) U Epithel Cells (Auto) Urine Bacteria (Auto) SARS-CoV-2, RNA, NAAT Diagnostic Findings Abdomen/Pelvis CT 12/29/22 18:07 Exam(s): CT ABDOMEN + PELVIS Without Contrast EXAM: CT Abdomen and Pelvis Without Intravenous Contrast CLINICAL HISTORY: Reason for exam: ro sbo. TECHNIQUE: Axial computed tomography images of the abdomen and pelvis without intravenous contrast. CTDI is 26.19 mGy and DLP is 1447.85 mGy-cm. Automated exposure control was utilized for the study. A dose lowering technique was utilized adhering to the principles of ALARA. COMPARISON: CT abdomen/pelvis on 02/24/2018 FINDINGS: Lung bases: Unremarkable. No mass. No consolidation. ABDOMEN: Liver: Hepatomegaly. Gallbladder and bile ducts: Prior cholecystectomy. No ductal dilation. Pancreas: Peripancreatic fluid is concerning for acute pancreatitis. Cystic structures in the pancreatic body and tail measure approximately 3. 3 x 3.3 x 3.4 cm and 2.4 x 1.8 x 2.3 cm, concerning for pseudocysts, increased in size compared to prior exam. Spleen: Small splenule. Adrenals: Unremarkable. No mass. Kidneys and ureters: Nonspecific bilateral perinephric fat stranding. No hydronephrosis or stone. Left renal cyst. Stomach and bowel: Evaluation of the stomach is limited by under distention. Diverticulosis without evidence of diverticulitis. No small bowel obstruction. PELVIS: Appendix: Appendix is not visualized on this exam. Bladder: Underdistended bladder limits evaluation. No stones. Reproductive: Prior hysterectomy. ABDOMEN and PELVIS: Intraperitoneal space: Small amount of fluid in the pelvis. No free air. Bones/joints: Degenerative changes of the spine. No acute fracture. No dislocation. Soft tissues: Injection granulomas in the left gluteal soft tissues. Small fat-containing umbilical hernia. Vasculature: Atherosclerotic changes of the vasculature. Ectasia of the abdominal aorta. Phleboliths in the pelvis. No abdominal aortic aneurysm. Lymph nodes: Unremarkable. No enlarged lymph nodes. Tubes, lines and devices: Median sternotomy changes. Pacer wires partially visualized heart. Coronary artery calcifications. IMPRESSION: 1. Peripancreatic fluid is concerning for acute pancreatitis. Cystic structures in the pancreatic body and tail measure approximately 3.3 x 3. 3 x 3.4 cm and 2.4 x 1.8 x 2.3 cm, concerning for pseudocysts, increased in size compared to prior exam. 2. Small amount of fluid in the pelvis. 3. Hepatomegaly. Electronically signed by: Palma Perez M.D. 12/29/22 19:39 PM Chest X-Ray 12/29/22 18:07 SINGLE VIEW CHEST CLINICAL HISTORY: Dyspnea FINDINGS: An AP, portable, upright chest radiograph is compared to study dated 11/09/2021. The patient is status post midline sternotomy. A 2-lead cardiac pacemaker is unchanged in position and partially obscures the left upper chest. The heart is enlarged noting atherosclerotic calcification of the thoracic aorta. The pulmonary vasculature is noncongested. Chronic interstitial thickening is similar to previous. There is chronic elevation of the right hemidiaphragm with bibasilar scarring/atelectasis. No airspace consolidation or large pleural effusion is identified. No pneumothorax is seen. The skeletal structures are osteopenic. There is chronic posttraumatic deformity of the right proximal humerus. Arthritic changes seen in the shoulders. IMPRESSION: 1. Cardiomegaly and cardiac pacemaker without radiographic evidence of congestive failure. 2. No airspace consolidation or large pleural effusion is identified. ACT 112: Negative or not required by law. Electronically signed by: Baljeet Avitia M.D. 12/29/2022 6:34 PM PG Care Time/CCT Total # of Minutes Spent Total Time Spent with Patient: Total time spent is greater than 50% in coordination of care (as documented) at patient's floor/unit and/or counseling patient: Coding Level of Care Code 55558 IN/OBS CONSULT LVL 3,45M History Problem Focused Medical Decision Making High Complexity Diagnoses CAD (coronary artery disease) I25.119 Associated angina: with unspecified angina Coronary Disease-Associated Artery/Lesion type: unspecified vessel or lesion type [place] vs. transplanted heart: [place] heart Pulmonary embolism I26.99 Pancreatic adenocarcinoma C25.9 (1) CAD (coronary artery disease) Associated angina: with unspecified angina Coronary Disease-Associated Artery/Lesion type: unspecified vessel or lesion type [place] vs. transplanted heart: [place] heart Qualified Code(s): I25.119 - Atherosclerotic heart disease of [place] coronary artery with unspecified angina pectoris
[2022-12-30] MEDS: CHOLESTYRAMINE LIGHT 4 GM PKT PO SCH (09:30)
--- NOTE | 2022-12-30 09:33 | XRay Report ---
XR chest 1V portable HISTORY: Shortness of breath. ffup, chf COMPARISON: Chest 12/29/2022. FINDINGS: No focal lung consolidations to suggest a pneumonia. No evidence for pulmonary edema. The c ardiac silhouette remains mildly enlarged. The left-sided pacemaker again noted. There are poststerno yudi changes. Old, healed right humeral neck fracture again noted. There are calcifications within th e aortic knob. Mild elevation of the right hemidiaphragm, unchanged. IMPRESSION: No significant change compared to the prior study. No acute process. ACT 112: Negative or not required by law. Electronically signed by: Preston Schroeder M.D. 12/30/2022 9:30 AM
--- NOTE | 2022-12-30 10:20 | Cardiology Consultation ---
Date of Consultation December 30, 2022 Assessment & Plan (1) Hypoxia: (2) Elevated troponin I level: (3) CAD (coronary artery disease): (4) Pancreatic adenocarcinoma: Plan 82-year-old female present to the emergency department due to abdominal pain, vomiting, and recurrent. Hypoxia noted in ER prompting treatment with intravenous furosemide and supplemental oxygen. No radiographic evidence of congestive heart failure though BNP mildly elevated. Examination currently does not suggest volume overloaded repeat x-ray this morning without infiltrates or pulmonary edema. Would not recommend additional diuretic today. Her troponin is elevated which I suspect is due to demand ischemia in the setting of transient hypoxia, severe nausea, abdominal pain, vomiting, and medical pancreatitis. INR is subtherapeutic, agree with intravenous heparin at this time. Dose warfarin daily for goal INR of 2.0-3.0. Preliminary review of bedside echocardiogram demonstrates preserved LV systolic function with inferior posterior wall motion abnormality unchanged from prior studies. Continue current cardiovascular medications including aspirin, carvedilol CR, isosorbide monohydrate, and amlodipine. Treatment of abdominal symptoms, pancreatitis, and pancreatic adenocarcinoma as per internal medicine service. History of Present Illness Reason for Consultation: CHF Requesting Physician: Dr. Tobin Attending Physician: Joce Alaniz MD History of Present Illness 82-year-old female present to the emergency department with abdominal pain, and vomiting. Reports numerous episodes of bilious vomiting 12/29/2022. She woke in the morning with abdominal discomfort. Attempted to eat lunch which immediately induce nausea and severe episodes of vomiting. Due to significant discomfort, she came to the ER for further evaluation and treatment. Recently hospitalized 1 week ago with acute pancreatitis. An EGD was performed with biopsy demonstrating pancreatic adenocarcinoma. In the ER, transient hypoxia recorded. Elevated BNP and troponin noted in ER. Patient adamantly denies any chest discomfort or shortness of breath. Briefly treated with supplemental oxygen. Received 1 dose of IV furosemide, however, fluid balance reported as positive. She denies any significant urination/diuresis. Continues to note abdominal discomfort. No recurrent nausea this AM. Denies orthopnea, or PND. Chronic, mild lower extremity edema unchanged. Complex cardiac history includes CABG x5 in 2005 in [place] with BROWN to LAD, SVG to diagonal, SVG to OM, SVG to RPDA, and SVG to the distal RCA. Repeat diagnostic cardiac catheterization 2010 in [place] at which time the vein grafts to the RPDA and distal RCA territory were noted to be occluded. She had a significant contrast reaction resulting in profound shock and airway collapse requiring emergency support with epinephrine infusion and endotracheal intubation. History of dual-chamber pacemaker implantation the took place in 2011. Allergies Allergy/AdvReac Type Severity Reaction Status Date / Time Iodinated Contrast Media Allergy Severe Hives, Verified 12/29/22 20:18 anaphylaxis ether Allergy Unknown Unknown Verified 12/29/22 20:18 prednisone AdvReac Severe GI pain > Verified 12/29/22 20:18 pancreatitis rosiglitazone AdvReac Severe Blood clots Verified 12/29/22 20:18 atorvastatin [From Lipitor] AdvReac Intermediate Muscle Pain Verified 12/29/22 20:18 ezetimibe [From Zetia] AdvReac Intermediate Muscle Pain Verified 12/29/22 20:18 lisinopril AdvReac Intermediate Cough Verified 12/29/22 20:18 losartan AdvReac Intermediate N/V Verified 12/29/22 20:18 ranitidine AdvReac Intermediate N/V, Verified 12/29/22 20:18 achiness rosuvastatin [From Crestor] AdvReac Intermediate Muscle Pain Verified 12/29/22 20:18 Home Medications Medication Instructions Recorded Confirmed Type aspirin 81 mg tablet,delayed 81 mg PO QPM 03/19/18 12/29/22 History release isosorbide mononitrate 60 mg See Rx Instructions .Route .COMPLEX 03/19/18 12/29/22 History tablet,extended release 24 hr levothyroxine 50 mcg tablet 50 mcg PO QAM 03/19/18 12/29/22 History nitroglycerin 0.4 mg sublingual 1 tab sublingual UD PRN Chest Pain 03/19/18 12/29/22 History tablet carvedilol phosphate 40 mg 40 mg PO QAM 11/02/18 12/29/22 History capsule,[id number] multiphase (Coreg CR) carvedilol phosphate 20 mg 20 mg PO HS 05/01/19 12/29/22 History capsule,[id number] multiphase omeprazole 20 mg capsule,delayed 20 mg PO DAILY PRN Acid Reflux 05/07/20 12/29/22 History release alprazolam 0.25 mg tablet (Xanax) 0.25 mg PO TID PRN Anxiety 06/18/20 12/29/22 History cholecalciferol (vitamin D3) 50 2,000 unit PO QAM 06/18/20 12/29/22 History mcg (2,000 unit) tablet (Vitamin D3) dicyclomine 10 mg capsule 10 mg PO QID PRN Indigestion 06/18/20 12/29/22 History acetaminophen 500 mg tablet 1,000 mg PO Q6H PRN knee pain 02/24/21 12/29/22 History (Tylenol Extra Strength) warfarin 2 mg tablet 5 mg PO PM 02/24/21 12/29/22 History calcium carbonate 600 mg calcium 600 mg PO DAILY 11/09/21 12/29/22 History (1,500 mg) tablet (Calcium) amlodipine 5 mg tablet 5 mg PO DAILY 12/21/22 12/29/22 History cholestyramine (with sugar) 4 gram 1 ea PO Q OTHER DAY 12/21/22 12/29/22 History powder for susp in a packet famotidine 20 mg tablet 20 mg PO BID PRN Dyspepsia 12/21/22 12/29/22 History sertraline 100 mg tablet 100 mg PO DAILY 12/21/22 12/29/22 History ciprofloxacin HCl 500 mg tablet 500 mg PO BID 5 days #10 tabs 12/25/22 12/29/22 Rx Patient History Medical History CAD (coronary artery disease) CABG x5 in 2005 in [place] with BROWN to LAD, SVG to diagonal, SVG to OM, SVG to RPDA, and SVG to the distal RCA, PCI x3 Carotid artery stenosis LICA/FITZ <50% stenosis, Right subclavian stenosis vs. occlusion with abnormal flow noted in vertebral artery per 08/2019 carotid duplex Chronic back pain DVT (deep venous thrombosis) Dyslipidemia GERD (gastroesophageal reflux disease) HTN (hypertension) Hypothyroidism IPMN (intraductal papillary mucinous neoplasm) Osteoarthritis Pacemaker 08/03 SSS, last pacer check 01/2020 Paroxysmal atrial fibrillation Pulmonary embolism remote years ago Surgical History H/O arthroscopy of knee H/O arthroscopy of shoulder H/O parathyroidectomy History of hysterectomy Hx of adenoidectomy Hx of appendectomy Hx of cataract surgery Hx of cholecystectomy Hx of hemorrhoidectomy Hx of tonsillectomy Pacemaker placement S/P BSO (bilateral salpingo-oophorectomy) S/P CABG x 3 CABG x5 in 2006 in [place] with BROWN to LAD, SVG to diagonal, SVG to OM, SVG to RPDA, and SVG to the distal RCA Family History Mother Stroke Social History Smoking Status: Never smoker Second Hand Exposure: No; Do You Dip or Chew Tobacco: No; Hx Alcohol Use: No Hx Substance Use: No Preferred Language: Kinyarwanda Communication Ability: Effective Recycle Worker Required: No Beliefs That Will Affect Care: None marital status: Current Living Situation: Family Current Living Situation Comment: Daughter LIVES WITH PT Feels Safe at Home: Yes Safety Concerns: Feels Safe At This Time Assistive Devices: Glasses and Hearing Aid - Bilateral Review of Systems Review of Systems: All systems reviewed & are unremarkable except as noted in Subjective Physical Exam Constitutional: well nourished and + obese; no acute distress Respiratory: normal respiratory effort; no respiratory distress, no labored breathing and no retractions Auscultation: no crackles, no rales, no rhonchi and no wheezes Cardiovascular: Rate/Rhythm: regular rate and regular rhythm Heart Sounds: normal S1 and normal S2; no murmur Vessels: radial pulses present; no JVD and no carotid bruit Extremities: + edema (Trace to mild bilateral pedal edema) Gastrointestinal (Abdomen): Inspection/Auscultation: abdomen normal to inspection; abdomen not distended Percussion/Palpation: + abdomen tender; no guarding and abdomen not rigid Neurologic: CN's II-XI intact bilaterally and moves all extremities; no focal motor deficits Motor/Sensory: no tremor Psychiatric: A+Ox3, euthymic affect Results & Data Vital Signs (Past 12 Hours) Vital Signs Temp Pulse Pulse Resp BP BP Pulse Ox 12/30/22 08:00 12/30/22 08:25 61 12/30/22 08:21 36.6 C 61 18 143/81 H 93 12/30/22 02:51 36.7 C 14 145/84 H 92 06/30/23 23:50 36.7 C 61 16 138/83 95 12/30/22 00:00 12/29/22 23:15 63 12/29/22 23:15 12/29/22 23:16 36.7 C 60 16 145/70 H 98 Pulse Ox O2 Del Method O2 Del Method 12/30/22 08:00 Room Air 12/30/22 08:25 12/30/22 08:21 Room Air 12/30/22 02:51 Room Air 12/29/22 23:50 Room Air 12/30/22 00:00 95 Room Air 12/29/22 23:15 12/29/22 23:15 Room Air 12/29/22 23:16 Room Air Laboratory Results Cardiac Enzymes 12/29/22 12/29/22 12/30/22 Range/Units 17:33 17:33 05:27 AST 29 30 (13-39) U/L Troponin I High Sens 26.4 H 1818.7 H* D (0-14) pg/ml B-Natriuretic Peptide 1106 H (0-100) pg/ml Coagulation 12/29/22 12/29/22 12/30/22 Range/Units 17:33 17:33 05:27 PT 16.4 H 15.7 H (9.0-12.0) Seconds APTT 33.1 H (21.0-31.0) Seconds B-Natriuretic Peptide 1106 H (0-100) pg/ml 12/30/22 Range/Units 05:27 PT (9.0-12.0) Seconds APTT 39.2 H (21.0-31.0) Seconds B-Natriuretic Peptide (0-100) pg/ml CBC 12/29/22 Range/Units 17:33 WBC 15.30 H (4.8-10.8) K/ul RBC 4.35 (4.20-5.40) M/uL Hgb 12.6 (12.0-16.0) g/dl Hct 38.6 (37.0-47.0) % Plt Count 180 (130-400) K/uL Neut # (Auto) 12.53 H (1.40-6.50) K/uL Lymph # (Auto) 1.04 L (1.2-3.4) K/uL [place] # (Auto) 1.49 H (0.11-0.59) K/uL Eos # (Auto) 0.09 (0-0.50) K/uL Baso # (Auto) 0.05 (0-0.2) K/uL Comprehensive Metabolic Panel 12/29/22 12/30/22 Range/Units 17:33 05:27 Sodium 136 139 (136-145) mmol/L Potassium 3.6 3.1 L (3.5-5.1) mmol/L Chloride 103 103 (98-107) mmol/L Carbon Dioxide 24 28 (21-32) mmol/L BUN 21 19 (6-23) mg/dl Creatinine 0.97 0.87 (0.6-1.2) mg/dl Glucose 136 H 110 H (70-99(Fasting)) mg/dl Calcium 8.7 8.3 L (8.6-10.3) mg/dl Direct Bilirubin 0.4 H (0-0.2) mg/dl AST 29 30 (13-39) U/L ALT 36 31 (7-52) U/L Alkaline Phosphatase 145 H 156 H (34-104) U/L Total Protein 6.8 6.4 (6.0-8.3) gm/dl Albumin 3.4 3.4 (3.4-5.0) gm/dl Intake and Output 12/29/22 12/30/22 12/30/22 22:59 06:59 14:59 Intake Total 100 / 100 258.1 / 258.1 Balance 100 / 100 258.1 / 258.1 Intake: IV 100 / 100 258.1 / 258.1 Albumin 25% 25 gm In 100 ml @ 100 / 100 100 / 100 50 mls/hr IV Q8H NICK Rx#: [id number] Heparin Sodium/Dextrose 25,000 158.1 / 158.1 units In 500 ml @ 900 UNITS/HR 18 mls/hr IV .Q24H NICK Rx#: [id number] Other: # Unmeasured Voids 1 Weight 90.9 kg 84.6 kg Weight Measurement Method Built in Bedscale Standing Scale (3) CAD (coronary artery disease) Associated angina: with unspecified angina Coronary Disease-Associated Artery/Lesion type: unspecified vessel or lesion type [place] vs. transplanted heart: [place] heart Qualified Code(s): I25.119 - Atherosclerotic heart disease of [place] coronary artery with unspecified angina pectoris
[2022-12-30 11:30] LABS: Basophils # (auto) 0.02 K/uL (0-0.2); Basophils % (auto) 0.2 %; Eosinophils # (auto) 0.14 K/uL (0-0.50); Eosinophils % (auto) 1.4 %; Hemoglobin 10.7 g/dl (12.0-16.0); Immature Granulocytes # (auto) 0.07 K/uL (0.01-0.20); Immature Granulocytes % (auto) 0.7 %; Lymphocytes # (auto) 0.67 K/uL (1.2-3.4); Lymphocytes % (auto) 6.8 %; Mean Corpuscular Hemoglobin 29.3 pg (25.0-34.0); Mean Corpuscular Hgb Conc 33.4 g/dL (32.0-36.0); Mean Corpuscular Volume 87.7 fL (80.0-100.0); Monocytes # (auto) 0.98 K/uL (0.11-0.59); Neutrophils # (auto) 7.96 K/uL (1.40-6.50); Neutrophils % (auto) 80.9 %; Platelet Count 180 K/uL (130-400); RDW Coefficient of Variation 13.9 % (11.5-14.5); RDW Standard Deviation 44.2 fL (36.4-46.3); Red Blood Count 3.65 M/uL (4.20-5.40); White Blood Count 9.84 K/ul (4.8-10.8)
[2022-12-30] MEDS: oxyCODONE HCL IR 5 MG TAB (IMMEDIATE RELEASE) PO PRN (13:11)
--- NOTE | 2022-12-30 14:30 | Hospitalist Progress Note ---
Date of Service December 30, 2022 Assessment & Plan (1) Abdominal pain: (2) CKD (chronic kidney disease) stage 3, GFR 30-59 ml/min: (3) Pancreatic adenocarcinoma: (4) Elevated troponin I level: Plan 82 year old female with h/o CABG in 2005, statin intolerance, hx of dual chamber pacer 2011, PAF anticoagulated on warfarin, history of DVT/PE on warfarin, HTN, HLD, hypothyroidism, hyperparathyroidism s/p parathyroidectomy, CKD III etc with recent admission for acute pancreatitis/pancreatic mass and diagnosed with pancreatic adenocarcinoma with EGD/EUS presented to ED with abdominal pain, N/V CT abdomen/pelvis 1. Peripancreatic fluid is concerning for acute pancreatitis. Cystic structures in the pancreatic body and tail measure approximately 3.3 x 3. 3 x 3.4 cm and 2.4 x 1.8 x 2.3 cm, concerning for pseudocysts, increased in size compared to prior exam. 2. Small amount of fluid in the pelvis. 3. Hepatomegaly. CXR- 1. Cardiomegaly and cardiac pacemaker without radiographic evidence of congestive failure. 2. No airspace consolidation or large pleural effusion is identified. Echocardiogram-EF 50-55%, moderate LVH with normal wall motion moderate size inferior and posterior wall abnormality with thinning and hypokinesia akinesia of segments (present on prior echocardiogram) Abdominal pain-likely related to acute pancreatitis and pancreatic carcinoma. Imaging as above. Symptoms significantly improved. Seen by GI and r ecommendations noted. Continue conservative management- on bowel rest, fluids. GI following. Elevated troponin- troponin trend noted, echo reviewed. denies any chest pain. EKG similar to prior. Cardiology following- discussed with cardio, suspected demand ischemia- no plans for cath. Hypokalemia-potassium 3.1, replete, recheck in a.m. Hypoxia on admission-resolved. Currently saturating well on room air. Denies any chest pain or shortness of breath. BNP elevated. History of DVT/PE-INR subtherapeutic, currently on heparin drip while INR therapeutic Paroxysmal A fib- continue coreg, heparin drip Pancreatic cancer- newly diagnosed. Seen by oncology. OP follow up with surgeon and oncology for further work up H/o CAD s/p CABG 2005- on ASA, betablocker. Intolerant to statin HTN- on amlod, coreg Hypothyroid- on synthroid CKD3- Cr at baseline DVT ppx- heparin drip with coumadin until INR therapeutic as no plan for intervention noted. Dispo- Pending symptomatic improvement Admission and Anticipated Discharge Date Admission Date: December 29, 2022 Subjective Patient was seen and examined at bedside. She feels better since admission. Pain is much improved. Denies any chest pain, shortness of breath, nausea or vomiting. She is hungry and would like to eat. No fever, chills Review of Systems Review of Systems: All systems reviewed & are unremarkable except as noted in Subjective Physical Exam Physical Exam: General: Sitting comfortably in bed, not in distress, on room air HEENT: EOMI, RENEA, MMM Chest: Clear breath sounds bilaterally, no wheezes or crackles CVS: Regular rate and rhythm, normal heart sounds, no murmur Abdomen: Soft, mild tender upper abdomen, not distended, normal bowel sounds Neuro: Awake, alert, oriented, conversing well, non focal Extremities: No cyanosis, clubbing or edema Results & Data Results & Data Vital Signs (Past 12 Hours) Vital Signs Temp Pulse Pulse Resp BP Pulse Ox O2 Del Method 12/30/22 11:45 36.8 C 59 L 18 123/77 92 Room Air 12/30/22 08:00 12/30/22 08:25 61 12/30/22 08:21 36.6 C 61 18 143/81 H 93 Room Air 12/30/22 02:51 36.7 C 14 145/84 H 92 Room Air O2 Del Method 12/30/22 11:45 12/30/22 08:00 Room Air 12/30/22 08:25 12/30/22 08:21 12/30/22 02:51 Laboratory Results Short CBC 12/29/22 12/30/22 12/30/22 Range/Units 17:33 05:27 11:06 WBC 15.30 H Cancelled 9.84 (4.8-10.8) K/ul Hgb 12.6 Cancelled 10.7 L (12.0-16.0) g/dl Hct 38.6 Cancelled 32.0 L (37.0-47.0) % Plt Count 180 Cancelled 180 (130-400) K/uL BMP 12/29/22 12/30/22 17:33 05:27 Sodium 136 139 Potassium 3.6 3.1 L Chloride 103 103 Carbon Dioxide 24 28 BUN 21 19 Creatinine 0.97 0.87 Glucose 136 H 110 H Calcium 8.7 8.3 L Liver Function 12/29/22 12/30/22 Range/Units 17:33 05:27 Total Bilirubin 1.0 0.8 (0.2-1.0) mg/dl Direct Bilirubin 0.4 H (0-0.2) mg/dl AST 29 30 (13-39) U/L ALT 36 31 (7-52) U/L Alkaline Phosphatase 145 H 156 H (34-104) U/L Albumin 3.4 3.4 (3.4-5.0) gm/dl Urine 12/29/22 Range/Units 20:50 Urine Color Yellow Urine Appearance Clear (Clear) Urine pH 5.5 (4.5-7.5) Ur Specific [place] 1.009 (1.000-1.030) Urine Protein Trace H (Negative) Urine Glucose (UA) Negative (Negative) Diagnostic Findings Chest X-Ray 12/30/22 08:00 XR chest 1V portable HISTORY: Shortness of breath. ffup, chf COMPARISON: Chest 12/29/2022. FINDINGS: No focal lung consolidations to suggest a pneumonia. No evidence for pulmonary edema. The cardiac silhouette remains mildly enlarged. The left-sided pacemaker again noted. There are poststernotomy changes. Old, healed right humeral neck fracture again noted. There are calcifications within the aortic knob. Mild elevation of the right hemidiaphragm, unchanged. IMPRESSION: No significant change compared to the prior study. No acute process. ACT 112: Negative or not required by law. Electronically signed by: Preston Schroeder M.D. 12/30/2022 9:30 AM Medications Administered Current Inpatient Medications Acetaminophen (Acetaminophen 325 Mg Tab) 650 mg PO Q4H PRN PRN Reason: Pain or Fever Stop: 01/28/23 23:37 Alprazolam (Alprazolam 0.25 Mg Tablet) 0.25 mg PO TID PRN PRN Reason: Anxiety Stop: 01/28/23 23:37 Amlodipine Besylate (Amlodipine Besylate 5 Mg Tab) 5 mg PO DAILY NICK Stop: 01/29/23 08:59 Last Admin: 12/30/22 08:02 Dose: 5 mg Aspirin (Aspirin 81 Mg Ectab) 81 mg PO QPM NICK Stop: 01/29/23 20:59 Carvedilol (Carvedilol 12.5 Mg Tab) 12.5 mg PO BID [facility] Stop: 01/28/23 23:44 Last Admin: 12/30/22 08:01 Dose: 12.5 mg Cholestyramine Resin (Cholestyramine Light 4 Gm Pkt) 4 gm PO Q2D [facility] Stop: 01/29/23 09:59 Last Admin: 12/30/22 09:30 Dose: 4 gm Famotidine (Famotidine 20 Mg Tab) 20 mg PO BID PRN PRN Reason: Dyspepsia Stop: 01/28/23 23:37 Heparin Sodium/Dextrose (Heparin Sodium/Dextrose) 25,000 units in 500 mls @ 19 mls/hr IV .Q24H [facility]; Protocol Stop: 01/28/23 22:14 Last Titration: 12/30/22 07:56 Dose: 950 units/hr, 19 mls/hr Promethazine HCl 6.25 mg/ (Sodium Chloride) 50.25 mls @ 201 mls/hr IV Q6H PRN PRN Reason: Nausea And Vomiting Stop: 01/28/23 22:06 Albumin Human (Albumin 25%) 25 gm in 100 mls @ 50 mls/hr IV Q8H [facility] Stop: 01/02/23 05:59 Last Admin: 12/30/22 13:10 Dose: 50 mls/hr Isosorbide Mononitrate (Isosorbide [place] Extended Rel 60 Mg Tabcr) 120 mg PO QAM [facility] Stop: 01/29/23 08:59 Last Admin: 12/30/22 08:01 Dose: 120 mg Isosorbide Mononitrate (Isosorbide [place] Extended Rel 60 Mg Tabcr) 60 mg PO HS [facility] Stop: 01/29/23 20:59 Levothyroxine Sodium (Levothyroxine Sodium 50 Mcg Tablet) 50 mcg PO DAILYBB [facility] Stop: 01/29/23 06:29 Last Admin: 12/30/22 06:45 Dose: Not Given Morphine Sulfate (Morphine Sulfate 4 Mg/Ml 1 Ml Carp\Vial) 4 mg IV Q4H PRN PRN Reason: Pain Stop: 01/12/23 22:06 Last Admin: 12/30/22 03:48 Dose: 4 mg Nitroglycerin (Nitroglycerin Sl 0.4 Mg/Tab Tab) 0.4 mg SL UD PRN PRN Reason: Chest Pain Stop: 01/28/23 23:37 Oxycodone HCl (Oxycodone Hcl Ir 5 Mg Tab (Immediate Release)) 5 mg PO Q4H PRN PRN Reason: Pain Stop: 01/12/23 22:06 Last Admin: 12/30/22 13:11 Dose: 5 mg Pantoprazole Sodium (Pantoprazole 40 Mg Tab) 40 mg PO DAILY PRN PRN Reason: Acid Reflux Stop: 01/28/23 23:53 Sertraline HCl (Sertraline Hcl 100 Mg Tablet) 100 mg PO DAILY NICK Stop: 01/29/23 08:59 Last Admin: 12/30/22 08:02 Dose: 100 mg
[2022-12-30 15:06] LABS: Partial Thromboplastin Ratio 1.5
[2022-12-30 15:18] LABS: Partial Thromboplastin Time 41.3 Seconds (21.0-31.0)
[2022-12-30] MEDS: WARFARIN SOD 5 MG TAB PO SCH (16:17)
[2022-12-30] MEDS: PANTOprazole 40 MG TAB PO PRN (19:27)
[2022-12-30] MEDS: ASPIRIN 81 MG ECTAB PO SCH (19:27)
[2022-12-31] MEDS: HEPARIN SODIUM/DEXTROSE 25,000 UNITS/500 ML BAG IV SCH ×2 (01:57→21:57)
[2022-12-31] MEDS: ALBUMIN 25% 25 GM/100 ML VIAL IV SCH ×3 (05:34→21:56)
[2022-12-31] MEDS: LEVOTHYROXINE SODIUM 50 MCG TABLET PO SCH (05:35)
[2022-12-31 06:12] LABS: Hematocrit (blood only) 30.1 % (37.0-47.0); Hemoglobin 9.9 g/dl (12.0-16.0); Mean Corpuscular Hemoglobin 28.6 pg (25.0-34.0); Mean Corpuscular Hgb Conc 32.9 g/dL (32.0-36.0); Mean Platelet Volume 12.6 fL (9.4-12.4); Platelet Count 180 K/uL (130-400); RDW Coefficient of Variation 14.2 % (11.5-14.5); RDW Standard Deviation 45.4 fL (36.4-46.3); Red Blood Count 3.46 M/uL (4.20-5.40)
[2022-12-31 06:29] LABS: BUN Creatinine Ratio 25.6 (10-20); Calcium 8.7 mg/dl (8.6-10.3); Creatinine Clr Calc Pharmacy 56.3 ml/min; Est GFR (African American) 72.4 ml/min; Est GFR (Non-African American) 62.5 ml/min; Magnesium 2.1 mg/dl (1.7-2.4); Potassium 3.4 mmol/L (3.5-5.1)
[2022-12-31 06:37] LABS: INR 1.5 (0.9-1.1); Prothrombin Time 15.7 Seconds (9.0-12.0); Troponin I High Sensitivity 538.5 pg/ml (0-14)
[2022-12-31 06:53] LABS: Partial Thromboplastin Ratio 1.5
[2022-12-31 06:54] LABS: Partial Thromboplastin Time 42.9 Seconds (21.0-31.0)
[2022-12-31] MEDS: carvediloL 12.5 MG TAB PO SCH ×2 (08:31→20:44)
[2022-12-31] MEDS: ISOSORBIDE MONO EXTENDED REL 60 MG TABCR PO SCH ×2 (08:31→20:44)
[2022-12-31] MEDS: amLODIPine BESYLATE 5 MG TAB PO SCH (08:31)
[2022-12-31] MEDS: SERTRALINE HCL 100 MG TABLET PO SCH (08:31)
[2022-12-31] MEDS ORDERED: POTASSIUM CHLORIDE CRTAB 20 MEQ TABCR PO SCH (09:00)
--- NOTE | 2022-12-31 11:23 | Cardiology Progress Note ---
Date of Service December 31, 2022 Assessment & Plan (1) Elevated troponin I level: (2) CAD (coronary artery disease): (3) Pancreatic adenocarcinoma: (4) Acute pancreatitis: Plan 82-year-old female present to the emergency department due to abdominal pain, vomiting, and recurrent pancreatitis. Hypoxia noted in ER prompting treatment with intravenous furosemide and supplemental oxygen. Examination currently does not suggest volume overload. Elevated troponin secondary to demand ischemia in the setting of transient hypoxia, recurrent pancreatitis with severe abdominal discomfort, nausea, and vomiting. INR remains subtherapeutic today. Agree with intravenous heparin. Dose warfarin for goal INR of 2.0-3.0. Echocardiogram demonstrating chronic inferior posterior wall motion abnormality. 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 Continue current cardiovascular medications including aspirin, carvedilol, isosorbide monohydrate, and amlodipine. Treatment of abdominal symptoms, pancreatitis, and pancreatic adenocarcinoma as per internal medicine service. Admission and Anticipated Discharge Date Admission Date: December 29, 2022 Subjective Patient seen and examined at the bedside. Notes ongoing mild abdominal discomfort. No recurrent nausea or vomiting. Denies any chest pain or shortness of breath. Telemetry reveals atrial paced rhythm at 60. Currently n.p.o. due to recurrent pancreatitis. Review of Systems Review of Systems: All systems reviewed & are unremarkable except as noted in Subjective Physical Exam Constitutional: well nourished and + obese; no acute distress Respiratory: normal respiratory effort; no respiratory distress, no labored breathing and no retractions Auscultation: no crackles, no rales, no rhonchi and no wheezes Cardiovascular: Rate/Rhythm: regular rate and regular rhythm Heart Sounds: normal S1 and normal S2; no murmur Vessels: radial pulses present; no JVD and no carotid bruit Extremities: + edema (Trace to mild bilateral pedal edema) Gastrointestinal (Abdomen): Inspection/Auscultation: abdomen normal to inspection; abdomen not distended Percussion/Palpation: + abdomen tender; no guarding and abdomen not rigid Neurologic: CN's II-XI intact bilaterally and moves all extremities; no focal motor deficits Motor/Sensory: no tremor Psychiatric: A+Ox3, euthymic affect Results & Data Vital Signs (Past 12 Hours) Vital Signs Temp Pulse Resp BP Pulse Ox Pulse Ox O2 Del Method 12/31/22 08:00 96 12/31/22 06:58 36.2 C L 61 18 144/78 H 95 Room Air 12/31/22 04:00 36.6 C 69 14 121/77 94 Room Air 12/31/22 00:00 36.9 C 64 16 132/70 94 Room Air 12/31/22 00:00 94 O2 Del Method 12/31/22 08:00 Room Air 12/31/22 06:58 12/31/22 04:00 12/31/22 00:00 12/31/22 00:00 Room Air Laboratory Results Cardiac Enzymes 12/30/22 12/31/22 12/31/22 Range/Units 18:15 05:23 05:23 Troponin I High Sens 1174.1 H* D 538.5 H* D (0-14) pg/ml B-Natriuretic Peptide 903 H (0-100) pg/ml Coagulation 12/30/22 12/31/22 12/31/22 Range/Units 14:07 05:23 05:23 PT 15.7 H (9.0-12.0) Seconds APTT 41.3 H* (21.0-31.0) Seconds B-Natriuretic Peptide 903 H (0-100) pg/ml 12/31/22 Range/Units 05:23 PT (9.0-12.0) Seconds APTT 42.9 H* (21.0-31.0) Seconds B-Natriuretic Peptide (0-100) pg/ml CBC 12/30/22 12/31/22 Range/Units 11:06 05:23 WBC 9.84 7.60 (4.8-10.8) K/ul RBC 3.65 L 3.46 L (4.20-5.40) M/uL Hgb 10.7 L 9.9 L (12.0-16.0) g/dl Hct 32.0 L 30.1 L (37.0-47.0) % Plt Count 180 180 (130-400) K/uL Neut # (Auto) 7.96 H (1.40-6.50) K/uL Lymph # (Auto) 0.67 L (1.2-3.4) K/uL [place] # (Auto) 0.98 H (0.11-0.59) K/uL Eos # (Auto) 0.14 (0-0.50) K/uL Baso # (Auto) 0.02 (0-0.2) K/uL Comprehensive Metabolic Panel 12/31/22 Range/Units 05:23 Sodium 139 (136-145) mmol/L Potassium 3.4 L (3.5-5.1) mmol/L Chloride 103 (98-107) mmol/L Carbon Dioxide 27 (21-32) mmol/L BUN 22 (6-23) mg/dl Creatinine 0.86 (0.6-1.2) mg/dl Glucose 107 H (70-99(Fasting)) mg/dl Calcium 8.7 (8.6-10.3) mg/dl Intake and Output 12/30/22 12/31/22 12/31/22 22:59 06:59 14:59 Intake Total 600.283 / 1220.000 361.617 / 1220.000 100 / 100 Balance 600.283 / 980.000 361.617 / 980.000 100 / 100 Intake: IV 240.283 / 800.000 301.617 / 800.000 100 / 100 Albumin 25% 25 gm In 100 ml @ 100 / 300 100 / 300 100 / 100 50 mls/hr IV Q8H NICK Rx#: [id number] Heparin Sodium/Dextrose 25,000 140.283 / 500.000 201.617 / 500.000 units In 500 ml @ 950 UNITS/HR 19 mls/hr IV .Q24H NICK Rx#: [id number] Oral 360 / 420 60 / 420 Other: # Unmeasured Voids 1 1 Weight 87.5 kg Weight Measurement Method Built in [facility] (2) CAD (coronary artery disease) Associated angina: with unspecified angina Coronary Disease-Associated Artery/Lesion type: unspecified vessel or lesion type [place] vs. transplanted heart: [place] heart Qualified Code(s): I25.119 - Atherosclerotic heart disease of [place] coronary artery with unspecified angina pectoris
--- NOTE | 2022-12-31 12:07 | Hospitalist Progress Note ---
Date of Service December 31, 2022 Assessment & Plan (1) Acute pancreatitis: (2) Abdominal pain: (3) CKD (chronic kidney disease) stage 3, GFR 30-59 ml/min: (4) Pancreatic adenocarcinoma: (5) Elevated troponin I level: (6) Pancreatic pseudocyst: Plan 82 year old female with h/o CABG in 2005, statin intolerance, hx of dual chamber pacer 2011, PAF anticoagulated on warfarin, history of DVT/PE on warfarin, HTN, HLD, hypothyroidism, hyperparathyroidism s/p parathyroidectomy, CKD III etc with recent admission for acute pancreatitis/pancreatic mass and diagnosed with pancreatic adenocarcinoma with EGD/EUS presented to ED with abdominal pain, N/V CT abdomen/pelvis 1. Peripancreatic fluid is concerning for acute pancreatitis. Cystic structures in the pancreatic body and tail measure approximately 3.3 x 3. 3 x 3.4 cm and 2.4 x 1.8 x 2.3 cm, concerning for pseudocysts, increased in size compared to prior exam. 2. Small amount of fluid in the pelvis. 3. Hepatomegaly. CXR- 1. Cardiomegaly and cardiac pacemaker without radiographic evidence of congestive failure. 2. No airspace consolidation or large pleural effusion is identified. Echocardiogram-EF 50-55%, moderate LVH with normal wall motion moderate size inferior and posterior wall abnormality with thinning and hypokinesia akinesia of segments (present on prior echocardiogram) Acute pancreatitis with pancreatic pseudocyst-recent admission for pancreatitis and had underwent EGD/EUS and discovered to have pancreatic adenocarcinoma. She returns with recurrent acute pancreatitis with pancreatic pseudocyst in CT, lipase normal. -Improved with conservative management. GI following. Continue conservative management. Trial of clear liquid. Elevated troponin- troponin trend noted, echo reviewed. denies any chest pain. EKG similar to prior. Cardiology following- suspected demand ischemia. Hypokalemia-improving, potassium 3.4, replete, recheck in a.m. Hypoxia on admission-resolved. Currently saturating well on room air. Denies any chest pain or shortness of breath. BNP elevated. History of DVT/PE-states last VTE patient was 20 years ago but she has been on coumadin since without issues. Home dose of coumadin is 2 mg daily- patient has not taken for few days [employer]. Received 5 mg coumdain 12/30 and 12/30, INR still subtherapeutic at 1.5, currently on heparin drip until INR therapeutic Paroxysmal A fib with subtherapeutic INR- continue coreg, heparin drip. Coumadin plan as above Pancreatic cancer- newly diagnosed. Seen by oncology. OP follow up with surgeon and oncology for further work up H/o CAD s/p CABG 2005- on ASA, betablocker. Intolerant to statin HTN- on amlod, coreg Hypothyroid- on synthroid CKD3- Cr at baseline DVT ppx- heparin drip with coumadin until INR therapeutic as no plan for intervention noted. Dispo- Pending symptomatic improvement. On heparin drip Admission and Anticipated Discharge Date Admission Date: December 29, 2022 Subjective Patient was seen and examined at bedside. She feels fine. Denies abdominal pain, nausea vomiting. Denies chest pain or shortness of breath, fever or chills. Review of Systems Review of Systems: All systems reviewed & are unremarkable except as noted in Subjective Physical Exam Physical Exam: General: Lying comfortably in bed, not in distress, on room air HEENT: EOMI, RENEA, MMM Chest: Clear breath sounds bilaterally, no wheezes or crackles CVS: Regular rate and rhythm, normal heart sounds, no murmur Abdomen: Soft, mild tender upper abdomen, not distended, normal bowel sounds Neuro: Awake, alert, oriented, conversing well, non focal Extremities: No cyanosis, clubbing or edema Results & Data Results & Data Vital Signs (Past 12 Hours) Vital Signs Temp Pulse Resp BP Pulse Ox Pulse Ox O2 Del Method 12/31/22 10:58 36.8 C 69 18 123/69 93 Room Air 12/31/22 08:00 96 12/31/22 06:58 36.2 C L 61 18 144/78 H 95 Room Air 12/31/22 04:00 36.6 C 69 14 121/77 94 Room Air 12/31/22 00:00 36.9 C 64 16 132/70 94 Room Air 12/31/22 00:00 94 O2 Del Method 12/31/22 10:58 12/31/22 08:00 Room Air 12/31/22 06:58 12/31/22 04:00 12/31/22 00:00 12/31/22 00:00 Room Air Laboratory Results Short CBC 12/31/22 Range/Units 05:23 WBC 7.60 (4.8-10.8) K/ul Hgb 9.9 L (12.0-16.0) g/dl Hct 30.1 L (37.0-47.0) % Plt Count 180 (130-400) K/uL [facility] 12/31/22 05:23 Sodium 139 Potassium 3.4 L Chloride 103 Carbon Dioxide 27 BUN 22 Creatinine 0.86 Glucose 107 H Calcium 8.7 Medications Administered Current Inpatient Medications Acetaminophen (Acetaminophen 325 Mg Tab) 650 mg PO Q4H PRN PRN Reason: Pain or Fever Stop: 01/28/23 23:37 Alprazolam (Alprazolam 0.25 Mg Tablet) 0.25 mg PO TID PRN PRN Reason: Anxiety Stop: 01/28/23 23:37 Last Admin: 12/30/22 19:29 Dose: 0.25 mg Amlodipine Besylate (Amlodipine Besylate 5 Mg Tab) 5 mg PO DAILY [facility] Stop: 01/29/23 08:59 Last Admin: 12/31/22 08:31 Dose: 5 mg Aspirin (Aspirin 81 Mg Ectab) 81 mg PO QPM [facility] Stop: 01/29/23 20:59 Last Admin: 12/30/22 19:27 Dose: 81 mg Carvedilol (Carvedilol 12.5 Mg Tab) 12.5 mg PO BID [facility] Stop: 01/28/23 23:44 Last Admin: 12/31/22 08:31 Dose: 12.5 mg Cholestyramine Resin (Cholestyramine Light 4 Gm Pkt) 4 gm PO Q2D [facility] Stop: 01/29/23 09:59 Last Admin: 12/30/22 09:30 Dose: 4 gm Famotidine (Famotidine 20 Mg Tab) 20 mg PO BID PRN PRN Reason: Dyspepsia Stop: 01/28/23 23:37 Heparin Sodium/Dextrose (Heparin Sodium/Dextrose) 25,000 units in 500 mls @ 19 mls/hr IV .Q24H [facility]; Protocol Stop: 01/28/23 22:14 Last Admin: 12/31/22 01:57 Dose: 950 units/hr, 19 mls/hr Promethazine HCl 6.25 mg/ (Sodium Chloride) 50.25 mls @ 201 mls/hr IV Q6H PRN PRN Reason: Nausea And Vomiting Stop: 01/28/23 22:06 Albumin Human (Albumin 25%) 25 gm in 100 mls @ 50 mls/hr IV Q8H [facility] Stop: 01/02/23 05:59 Last Infusion: 12/31/22 08:10 Dose: Infused Isosorbide Mononitrate (Isosorbide [place] Extended Rel 60 Mg Tabcr) 120 mg PO QAM [facility] Stop: 01/29/23 08:59 Last Admin: 12/31/22 08:31 Dose: 120 mg Isosorbide Mononitrate (Isosorbide [place] Extended Rel 60 Mg Tabcr) 60 mg PO HS [facility] Stop: 01/29/23 20:59 Last Admin: 12/30/22 19:27 Dose: 60 mg Levothyroxine Sodium (Levothyroxine Sodium 50 Mcg Tablet) 50 mcg PO DAILYBB [facility] Stop: 01/29/23 06:29 Last Admin: 12/31/22 05:35 Dose: 50 mcg Morphine Sulfate (Morphine Sulfate 4 Mg/Ml 1 Ml Carp\Vial) 4 mg IV Q4H PRN PRN Reason: Pain Stop: 01/12/23 22:06 Last Admin: 12/30/22 03:48 Dose: 4 mg Nitroglycerin (Nitroglycerin Sl 0.4 Mg/Tab Tab) 0.4 mg SL UD PRN PRN Reason: Chest Pain Stop: 01/28/23 23:37 Oxycodone HCl (Oxycodone Hcl Ir 5 Mg Tab (Immediate Release)) 5 mg PO Q4H PRN PRN Reason: Pain Stop: 01/12/23 22:06 Last Admin: 12/30/22 13:11 Dose: 5 mg Pantoprazole Sodium (Pantoprazole 40 Mg Tab) 40 mg PO DAILY PRN PRN Reason: Acid Reflux Stop: 01/28/23 23:53 Last Admin: 12/30/22 19:27 Dose: 40 mg Potassium Chloride (Potassium Chloride Crtab 20 Meq Tabcr) 40 meq PO DAILY [facility] Stop: 01/30/23 08:59 Last Admin: 12/31/22 08:31 Dose: 40 meq Sertraline HCl (Sertraline Hcl 100 Mg Tablet) 100 mg PO DAILY [facility] Stop: 01/29/23 08:59 Last Admin: 12/31/22 08:31 Dose: 100 mg Warfarin Sodium (Warfarin Sod 5 Mg Tab) 5 mg PO DAILY@1600 [facility] Stop: 01/29/23 15:59 Last Admin: 12/30/22 16:17 Dose: 5 mg
[2022-12-31] MEDS: WARFARIN SOD 5 MG TAB PO SCH (15:59)
[2022-12-31] MEDS: ASPIRIN 81 MG ECTAB PO SCH (20:44)
[2023-01-01] MEDS ORDERED: SIMETHICONE 80 MG CHEW PO STA (04:57)
[2023-01-01 05:23] LABS: Hematocrit (blood only) 29.7 % (37.0-47.0); Hemoglobin 9.8 g/dl (12.0-16.0); Mean Corpuscular Hemoglobin 28.7 pg (25.0-34.0); Mean Corpuscular Volume 86.8 fL (80.0-100.0); Mean Platelet Volume 12.1 fL (9.4-12.4); Platelet Count 189 K/uL (130-400); RDW Coefficient of Variation 14.1 % (11.5-14.5); RDW Standard Deviation 44.4 fL (36.4-46.3); Red Blood Count 3.42 M/uL (4.20-5.40); White Blood Count 7.01 K/ul (4.8-10.8)
[2023-01-01 05:37] LABS: Calcium 8.9 mg/dl (8.6-10.3); Creatinine Clr Calc Pharmacy 67.3 ml/min; Est GFR (African American) 89.8 ml/min; Est GFR (Non-African American) 77.4 ml/min; Potassium 3.8 mmol/L (3.5-5.1)
[2023-01-01 05:45] LABS: Prothrombin Time 20.9 Seconds (9.0-12.0)
--- NOTE | 2023-01-01 05:47 | Electrocardiogram Report ---
Test Reason : Blood Pressure : / mmHG Vent. Rate : 060 BPM Atrial Rate : 060 BPM P-R Int : 190 ms QRS Dur : 116 ms QT Int : 486 ms P-R-T Axes : 000 067 -07 degrees QTc Int : 486 ms Atrial-paced rhythm Cannot rule out Inferior infarct Prolonged QT Abnormal ECG When compared with ECG of 09-NOV-2021 17:08, Vent. rate has decreased BY 30 BPM Confirmed by Denzel Ambriz ([id number]) on 01/01/2023 5:47:28 AM Referred By: REFERRED SELF Confirmed By:Denzel Ambriz
[2023-01-01] MEDS: LEVOTHYROXINE SODIUM 50 MCG TABLET PO SCH (06:26)
[2023-01-01] MEDS: ALBUMIN 25% 25 GM/100 ML VIAL IV SCH ×3 (06:26→21:42)
[2023-01-01 07:01] LABS: Partial Thromboplastin Ratio 1.7
[2023-01-01 07:13] LABS: Partial Thromboplastin Time 46.9 Seconds (21.0-31.0)
[2023-01-01] MEDS: amLODIPine BESYLATE 5 MG TAB PO SCH (08:16)
[2023-01-01] MEDS: carvediloL 12.5 MG TAB PO SCH (08:16)
[2023-01-01] MEDS: PANTOprazole 40 MG TAB PO PRN (08:16)
[2023-01-01] MEDS: ISOSORBIDE MONO EXTENDED REL 60 MG TABCR PO SCH ×2 (08:16→20:52)
[2023-01-01] MEDS: SERTRALINE HCL 100 MG TABLET PO SCH (08:16)
[2023-01-01] MEDS: CHOLESTYRAMINE LIGHT 4 GM PKT PO SCH (08:17)
[2023-01-01] MEDS: FAMOTIDINE 20 MG TAB PO PRN ×2 (09:56→20:53)
--- NOTE | 2023-01-01 10:30 | Gastroenterology Progress Note ---
Date of Service January 01, 2023 Assessment & Plan (1) Acute pancreatitis: Plan: Pt is a 82 yo female recently dx'd with pancreas neck adenocarcinoma, admitted with abd pain, nausea symptoms; likely related pancreatitis and pseudocysts formation. Clinically improved now. - Advanced to low fat, heart healthy diet - Consider Palliative Care consult for symptomatic management - No new GI plans, will sign off; pls recall prn - Pt has OP Heme/On appt w Dr. Diggs on 01/08/23; Waiting Surg/Onc appt (referral placed) Admission and Anticipated Discharge Date Admission Date: December 29, 2022 Supervising Physician Co-Signing Physician Notes I have seen and examined the patient with SAHIL Gerber whose note reflects our findings and plan. Nausea is improved. Starting to feel hungry. OUtpatient f/u being arranged with surg/onc and in place with med/onc. Please call with questions. Subjective Pt feels nauseated slightly but feels it's related to her only being on CL diet. She wants to try solid foods. She is having less abd pain. Passing flatus but no BMs since admission Review of Systems Review of Systems: All systems reviewed & are unremarkable except as noted in HPI & below Physical Exam Constitutional: WD/WN, vitals as above well groomed, cooperative and comfortable Eyes: PERRL, conjunctivae normal, anicteric sclerae ENMT: external ear and nose normal, oropharynx normal Respiratory: normal respiratory effort, lungs clear to auscultation Cardiovascular: RRR, no murmur, no edema Gastrointestinal (Abdomen): TTP & LUQ epigastric wo guarding, soft, BS present Skin: no rashes, warm and dry no jaundice Psychiatric: A+Ox3, euthymic affect Lymphatic: no lymphedema Results & Data Vital Signs (Past 12 Hours) Vital Signs Temp Pulse Resp BP Pulse Ox Pulse Ox O2 Del Method 01/01/23 08:36 Room Air 01/01/23 07:29 37.1 C 61 18 151/75 H 93 Room Air 01/01/23 00:00 94 01/01/23 03:06 36.9 C 58 L 17 132/66 93 Room Air 12/31/22 22:35 37.1 C 58 L 17 125/68 94 Room Air O2 Del Method 01/01/23 08:36 01/01/23 07:29 01/01/23 00:00 Room Air 01/01/23 03:06 12/31/22 22:35
[2023-01-01] MEDS ORDERED: METOPROLOL TARTRATE 1 MG/ML VIAL IV STA (10:41)
--- NOTE | 2023-01-01 13:03 | Cardiology Progress Note ---
Date of Service January 01, 2023 Assessment & Plan (1) Elevated troponin I level: (2) CAD (coronary artery disease): (3) Pancreatic adenocarcinoma: (4) Acute pancreatitis: Plan 82-year-old female present to the emergency department due to abdominal pain, vomiting, and recurrent pancreatitis. Hypoxia noted in ER prompting treatment with intravenous furosemide and supplemental oxygen. Examination currently does not suggest volume overload. Elevated troponin secondary to demand ischemia in the setting of transient hypoxia, recurrent pancreatitis with severe abdominal discomfort, nausea, and vomiting. No surgical interventions needed. INR therapeutic today. Heparin discontinued Dose warfarin for goal INR of 2.0-3.0. Echocardiogram demonstrating chronic inferior posterior wall motion abnormality. 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 Treatment of abdominal symptoms, pancreatitis, and pancreatic adenocarcinoma as per internal medicine service. Advanced diet as tolerated per GI. No further cardiac testing warranted at this time. Continue current cardiovascular medications including aspirin, carvedilol, isosorbide monohydrate, and amlodipine. Case discussed with Dr. Stephens I spent a total of 25 minutes on the date of service in preparation, delivery, and documentation of the care provided to this patient, excluding any time spent in the performance of separately billed services. Rola Buchanan PA-C Department of Cardiology, [facility] This chart was completed in part utilizing Speech Voice Recognition Software. Grammatical errors, random word insertions, pronoun errors, and incomplete sentences are an occasional consequence of this system due to software limitations, ambient noise, and hardware issues. Any formal questions or concerns about the content, text, or information contained within the body of this dictation should be directly addressed to the provider for clarification. Admission and Anticipated Discharge Date Admission Date: December 29, 2022 Supervising Physician Co-Signing Physician Notes Supervising Physician Attestation: I have personally performed a history and physical examination on the patient. I agree with the physician assistant professor of radiology's findings and plan as documented with the following additions. Subjective: Patient comfortable at the time of my assessment. Although she was in sinus rhythm first and this morning, at 9:48 AM, she converted from sinus rhythm with atrial pacing to atrial fibrillation with mildly elevated ventricular response, heart rate as high as 130 bpm. She has a known history of atrial fibrillation, and was asymptomatic from an atrial fibrillation standpoint at the time of my as sessment. Exam: Cardiovascular: Irregular rhythm, no murmurs, trace bilateral lower extremity edema Chest: Well-healed left infraclavicular pacemaker pocket, no erythema, no drainage Data: INR today 2.0 increased from 1.5 yesterday High-sensitivity troponin trending down from 1818-538 PG per mL Assessment and Plan: Relatively mild elevation in troponin I without symptoms suggestive of unstable angina patient with history of chronic coronary heart disease, stable chronic angina pectoris for which I follow her as an outpatient, and remote CABG. Chief complaint appears to be related to ongoing poor dietary tolerance rather than angina. Patient with atrial fibrillation with rapid ventricular response, in the setting of known history of paroxysmal atrial fibrillation -No further cardiac testing felt to be indicated at present. Agree with transitioning from carvedilol to metoprolol for improved rate control. Continue anticoagulation with Coumadin. With regards to recent diagnosis of suspected pancreatic adenocarcinoma, Eliquis may be a preferred agent for anticoagulation. Overall I feel she is a relatively robust candidate for consideration of abdominal surgery with regards to her recent pancreatic carcinoma diagnosis. Her baseline cardiac status and age will place her at high risk for perioperative cardiac complication, but I do not think further testing would change this risk nor do I believe her cardiac status would preclude consideration of surgery. Victoriano Stephens, DO Subjective Patient resting in chair, feeling better this morning. Less abdominal pain and about to try solid food. Denies chest pain/SOB. No orthopnea, PND or edema. Offers no complaints this morning Review of Systems Review of Systems: All systems reviewed & are unremarkable except as noted in HPI & below Physical Exam Constitutional: WD/WN, vitals as above well nourished; no acute distress Respiratory: normal respiratory effort, lungs clear to auscultation Auscultation: no crackles, no rales, no rhonchi and no wheezes Cardiovascular: RRR, no murmur, no edema Rate/Rhythm: regular rate and regular rhythm Heart Sounds: normal S1 and normal S2; no murmur Vessels: radial pulses present; no JVD and no carotid bruit Extremities: + edema (Trace to mild bilateral pedal edema) Gastrointestinal (Abdomen): Percussion/Palpation: + abdomen tender and abdomen soft; no guarding and abdomen not rigid Musculoskeletal: Extremities: no cyanosis and no clubbing Skin: no rashes, warm and dry no jaundice Neurologic: PERRL, EOMI, accommodation nl, no face palsy, no dysarthria Motor/Sensory: no tremor and no asterixis Psychiatric: A+Ox3, euthymic affect Orientation: alert and oriented x 3 Lymphatic: no lymphedema Results & Data Vital Signs (Past 12 Hours) Vital Signs Temp Pulse Pulse Resp BP Pulse Ox O2 Del Method 01/01/23 11:16 37.1 C 89 18 106/69 95 Room Air 01/01/23 11:14 118 H 01/01/23 10:59 126 H 01/01/23 08:36 Room Air 01/01/23 07:29 37.1 C 61 18 151/75 H 93 Room Air 01/01/23 03:06 36.9 C 58 L 17 132/66 93 Room Air Laboratory Results Coagulation 01/01/23 01/01/23 Range/Units 04:18 04:18 PT 20.9 H (9.0-12.0) Seconds APTT 46.9 H* (21.0-31.0) Seconds CBC 01/01/23 Range/Units 04:18 WBC 7.01 (4.8-10.8) K/ul RBC 3.42 L (4.20-5.40) M/uL Hgb 9.8 L (12.0-16.0) g/dl Hct 29.7 L (37.0-47.0) % Plt Count 189 (130-400) K/uL Comprehensive Metabolic Panel 01/01/23 Range/Units 04:18 Sodium 137 (136-145) mmol/L Potassium 3.8 (3.5-5.1) mmol/L Chloride 102 (98-107) mmol/L Carbon Dioxide 27 (21-32) mmol/L BUN 18 (6-23) mg/dl Creatinine 0.72 (0.6-1.2) mg/dl Glucose 125 H (70-99(Fasting)) mg/dl Calcium 8.9 (8.6-10.3) mg/dl Intake and Output 12/31/22 01/01/23 01/01/23 22:59 06:59 14:59 Intake Total 900.000 / 1320.000 100 / 1320.000 600.000 / 600.000 Balance 900.000 / 1320.000 100 / 1320.000 600.000 / 600.000 Intake: IV 480.000 / 680.000 100 / 680.000 600.000 / 600.000 Albumin 25% 25 gm In 100 ml @ 100 / 300 100 / 300 100 / 100 50 mls/hr IV Q8H [facility] Rx#: [id number] Heparin Sodium/Dextrose 25,000 380.000 / 380.000 500.000 / 500.000 units In 500 ml @ 950 UNITS/HR 19 mls/hr IV .Q24H [facility] Rx#: [id number] Oral 420 / 640 0 / 640 Other: # Unmeasured Voids 2 1 Weight 87.2 kg Weight Measurement Method Built in [facility] Diagnostic Findings Telemetry reviewed: Paced in the 60's. Echo report reviewed dated 12/30/22; LVEF 50-55% Moderate LVH in segments with normal wall motion Moderate size inferior and posterior wall motion abnormality with thinning, and hypokinesis to akinesis of the segments. LA is moderately dilated Moderate MR No pulm hypertension Medications Administered Current Inpatient Medications Acetaminophen (Acetaminophen 325 Mg Tab) 650 mg PO Q4H PRN PRN Reason: Pain or Fever Stop: 01/28/23 23:37 Last Admin: 12/31/22 15:59 Dose: 650 mg Alprazolam (Alprazolam 0.25 Mg Tablet) 0.25 mg PO TID PRN PRN Reason: Anxiety Stop: 01/28/23 23:37 Last Admin: 12/30/22 19:29 Dose: 0.25 mg Amlodipine Besylate (Amlodipine Besylate 5 Mg Tab) 5 mg PO DAILY [facility] Stop: 01/29/23 08:59 Last Admin: 01/01/23 08:16 Dose: 5 mg Aspirin (Aspirin 81 Mg Ectab) 81 mg PO QPM [facility] Stop: 01/29/23 20:59 Last Admin: 12/31/22 20:44 Dose: 81 mg Cholestyramine Resin (Cholestyramine Light 4 Gm Pkt) 4 gm PO Q2D [facility] Stop: 01/29/23 09:59 Last Admin: 01/01/23 08:17 Dose: Not Given Famotidine (Famotidine 20 Mg Tab) 20 mg PO BID PRN PRN Reason: Dyspepsia Stop: 01/28/23 23:37 Last Admin: 01/01/23 09:56 Dose: 20 mg Promethazine HCl 6.25 mg/ (Sodium Chloride) 50.25 mls @ 201 mls/hr IV Q6H PRN PRN Reason: Nausea And Vomiting Stop: 01/28/23 22:06 Albumin Human (Albumin 25%) 25 gm in 100 mls @ 50 mls/hr IV Q8H [facility] Stop: 01/02/23 05:59 Last Infusion: 01/01/23 08:15 Dose: Infused Isosorbide Mononitrate (Isosorbide [place] Extended Rel 60 Mg Tabcr) 120 mg PO QAM [facility] Stop: 01/29/23 08:59 Last Admin: 01/01/23 08:16 Dose: 120 mg Isosorbide Mononitrate (Isosorbide [place] Extended Rel 60 Mg Tabcr) 60 mg PO HS [facility] Stop: 01/29/23 20:59 Last Admin: 12/31/22 20:44 Dose: 60 mg Levothyroxine Sodium (Levothyroxine Sodium 50 Mcg Tablet) 50 mcg PO DAILYBB [facility] Stop: 01/29/23 06:29 Last Admin: 01/01/23 06:26 Dose: 50 mcg Metoprolol Tartrate (Metoprolol Tartrate 25 Mg Tab) 25 mg PO TID [facility] Stop: 01/31/23 13:59 Morphine Sulfate (Morphine Sulfate 4 Mg/Ml 1 Ml Carp\Vial) 4 mg IV Q4H PRN PRN Reason: Pain Stop: 01/12/23 22:06 Last Admin: 12/30/22 03:48 Dose: 4 mg Nitroglycerin (Nitroglycerin Sl 0.4 Mg/Tab Tab) 0.4 mg SL UD PRN PRN Reason: Chest Pain Stop: 01/28/23 23:37 Oxycodone HCl (Oxycodone Hcl Ir 5 Mg Tab (Immediate Release)) 5 mg PO Q4H PRN PRN Reason: Pain Stop: 01/12/23 22:06 Last Admin: 12/30/22 13:11 Dose: 5 mg Pantoprazole Sodium (Pantoprazole 40 Mg Tab) 40 mg PO DAILY PRN PRN Reason: Acid Reflux Stop: 01/28/23 23:53 Last Admin: 01/01/23 08:16 Dose: 40 mg Sertraline HCl (Sertraline Hcl 100 Mg Tablet) 100 mg PO DAILY [facility] Stop: 01/29/23 08:59 Last Admin: 01/01/23 08:16 Dose: 100 mg Warfarin Sodium (Warfarin Sod 2 Mg Tab) 2 mg PO DAILY@1600 [facility] Stop: 01/31/23 15:59 (2) CAD (coronary artery disease) Associated angina: with unspecified angina Coronary Disease-Associated Artery/Lesion type: unspecified vessel or lesion type [place] vs. transplanted heart: [place] heart Qualified Code(s): I25.119 - Atherosclerotic heart disease of [place] coronary artery with unspecified angina pectoris
[2023-01-01] MEDS: METOPROLOL TARTRATE 25 MG TAB PO SCH ×2 (13:09→20:52)
[2023-01-01] MEDS ORDERED: WARFARIN SOD 2 MG TAB PO SCH (16:00)
--- NOTE | 2023-01-01 18:18 | Hospitalist Progress Note ---
Date of Service January 01, 2023 Assessment & Plan (1) Acute pancreatitis: (2) Pancreatic pseudocyst: (3) Paroxysmal atrial fibrillation with RVR: (4) Pancreatic adenocarcinoma: (5) CKD (chronic kidney disease) stage 3, GFR 30-59 ml/min: (6) Elevated troponin I level: Plan 82 year old female with h/o CABG in 2005, statin intolerance, hx of dual chamber pacer 2011, PAF anticoagulated on warfarin, history of DVT/PE on warfarin, HTN, HLD, hypothyroidism, hyperparathyroidism s/p parathyroidectomy, CKD III etc with recent admission for acute pancreatitis/pancreatic mass and diagnosed with pancreatic adenocarcinoma with EGD/EUS presented to ED with abdominal pain, N/V CT abdomen/pelvis 1. Peripancreatic fluid is concerning for acute pancreatitis. Cystic structures in the pancreatic body and tail measure approximately 3.3 x 3. 3 x 3.4 cm and 2.4 x 1.8 x 2.3 cm, concerning for pseudocysts, increased in size compared to prior exam. 2. Small amount of fluid in the pelvis. 3. Hepatomegaly. CXR- 1. Cardiomegaly and cardiac pacemaker without radiographic evidence of congestive failure. 2. No airspace consolidation or large pleural effusion is identified. Echocardiogram-EF 50-55%, moderate LVH with normal wall motion moderate size inferior and posterior wall abnormality with thinning and hypokinesia akinesia of segments (present on prior echocardiogram) Acute pancreatitis with pancreatic pseudocyst-recent admission for pancreatitis and had underwent EGD/EUS and discovered to have pancreatic adenocarcinoma. She returns with recurrent acute pancreatitis with pancreatic pseudocyst in CT, lipase normal. -Improved with conservative management. GI following. Diet advanced to low-fat which she is tolerating well. Elevated troponin- troponin trend noted, echo reviewed. denies any chest pain. EKG similar to prior. Cardiology following- suspected demand ischemia. Hypokalemia-resolved Hypoxia on admission-resolved. Currently saturating well on room air. Denies any chest pain or shortness of breath. BNP elevated. History of DVT/PE-states last VTE patient was 20 years ago but she has been on coumadin since without issues. Home dose of coumadin is 2 mg daily- patient has not taken for few days [employer]. Received 5 mg Coumadin 12/30 and 7, INR up to 2 today. Heparin drip discontinued and started on Coumadin 2 Mg daily which is her home dose. Paroxysmal A fib with RVR-patient converted to A-fib with RVR this morning from sinus rhythm. Coreg changed to Lopressor 4 times daily. INR therapeutic on Coumadin. Cardiology following for further management Pancreatic cancer- newly diagnosed. Seen by oncology. OP follow up with surgeon and oncology for further work up H/o CAD s/p CABG 2006- on ASA, betablocker. Intolerant to statin HTN- on amlod, Lopressor Hypothyroid- on synthroid CKD3- Cr at baseline DVT ppx-Coumadin, INR therapeutic Dispo-anticipate discharge in 1 to 2 days if remains stable Admission and Anticipated Discharge Date Admission Date: December 29, 2022 Subjective Patient was seen and examined at bedside. Still feels good. She had heartburn symptoms last night and this morning which is resolved later today. She tolerated low-fat diet without issues. No nausea or vomiting. Pain is significantly improved. No fever, chills, shortness of breath. Review of Systems Review of Systems: All systems reviewed & are unremarkable except as noted in Subjective Physical Exam Physical Exam: General: Lying comfortably in bed, not in distress, on room air HEENT: EOMI, RENEA, MMM Chest: Clear breath sounds bilaterally, no wheezes or crackles CVS: Regular rate and rhythm, normal heart sounds, no murmur Abdomen: Soft, nontender, not distended, normal bowel sounds Neuro: Awake, alert, oriented, conversing well, non focal Extremities: No cyanosis, clubbing or edema Results & Data Results & Data Vital Signs (Past 12 Hours) Vital Signs Temp Pulse Pulse Resp BP Pulse Ox O2 Del Method 01/01/23 16:50 37.4 C 111 H 18 121/81 95 Room Air 01/01/23 11:16 37.1 C 89 18 106/69 95 Room Air 01/01/23 11:14 118 H 01/01/23 10:59 126 H 01/01/23 08:36 Room Air 01/01/23 07:29 37.1 C 61 18 151/75 H 93 Room Air Laboratory Results Short CBC 01/01/23 Range/Units 04:18 WBC 7.01 (4.8-10.8) K/ul Hgb 9.8 L (12.0-16.0) g/dl Hct 29.7 L (37.0-47.0) % Plt Count 189 (130-400) K/uL BMP 01/01/23 04:18 Sodium 137 Potassium 3.8 Chloride 102 Carbon Dioxide 27 BUN 18 Creatinine 0.72 Glucose 125 H Calcium 8.9 Medications Administered Current Inpatient Medications Acetaminophen (Acetaminophen 325 Mg Tab) 650 mg PO Q4H PRN PRN Reason: Pain or Fever Stop: 01/28/23 23:37 Last Admin: 12/31/22 15:59 Dose: 650 mg Alprazolam (Alprazolam 0.25 Mg Tablet) 0.25 mg PO TID PRN PRN Reason: Anxiety Stop: 01/28/23 23:37 Last Admin: 12/30/22 19:29 Dose: 0.25 mg Amlodipine Besylate (Amlodipine Besylate 5 Mg Tab) 5 mg PO DAILY NIKC Stop: 01/29/23 08:59 Last Admin: 01/01/23 08:16 Dose: 5 mg Aspirin (Aspirin 81 Mg Ectab) 81 mg PO QPM NICK Stop: 01/29/23 20:59 Last Admin: 12/31/22 20:44 Dose: 81 mg Cholestyramine Resin (Cholestyramine Light 4 Gm Pkt) 4 gm PO Q2D NICK Stop: 01/29/23 09:59 Last Admin: 01/01/23 08:17 Dose: Not Given Famotidine (Famotidine 20 Mg Tab) 20 mg PO BID PRN PRN Reason: Dyspepsia Stop: 01/28/23 23:37 Last Admin: 01/01/23 09:56 Dose: 20 mg Promethazine HCl 6.25 mg/ (Sodium Chloride) 50.25 mls @ 201 mls/hr IV Q6H PRN PRN Reason: Nausea And Vomiting Stop: 01/28/23 22:06 Albumin Human (Albumin 25%) 25 gm in 100 mls @ 50 mls/hr IV Q8H NICK Stop: 01/02/23 05:59 Last Infusion: 01/01/23 15:07 Dose: Infused Isosorbide Mononitrate (Isosorbide [place] Extended Rel 60 Mg Tabcr) 120 mg PO QAM NICK Stop: 01/29/23 08:59 Last Admin: 01/01/23 08:16 Dose: 120 mg Isosorbide Mononitrate (Isosorbide [place] Extended Rel 60 Mg Tabcr) 60 mg PO HS [facility] Stop: 01/29/23 20:59 Last Admin: 12/31/22 20:44 Dose: 60 mg Levothyroxine Sodium (Levothyroxine Sodium 50 Mcg Tablet) 50 mcg PO DAILYBB [facility] Stop: 01/29/23 06:29 Last Admin: 01/01/23 06:26 Dose: 50 mcg Metoprolol Tartrate (Metoprolol Tartrate 25 Mg Tab) 25 mg PO TID [facility] Stop: 01/31/23 13:59 Last Admin: 01/01/23 13:09 Dose: 25 mg Morphine Sulfate (Morphine Sulfate 4 Mg/Ml 1 Ml Carp\Vial) 4 mg IV Q4H PRN PRN Reason: Pain Stop: 01/12/23 22:06 Last Admin: 12/30/22 03:48 Dose: 4 mg Nitroglycerin (Nitroglycerin Sl 0.4 Mg/Tab Tab) 0.4 mg SL UD PRN PRN Reason: Chest Pain Stop: 01/28/23 23:37 Oxycodone HCl (Oxycodone Hcl Ir 5 Mg Tab (Immediate Release)) 5 mg PO Q4H PRN PRN Reason: Pain Stop: 01/12/23 22:06 Last Admin: 12/30/22 13:11 Dose: 5 mg Pantoprazole Sodium (Pantoprazole 40 Mg Tab) 40 mg PO DAILY PRN PRN Reason: Acid Reflux Stop: 01/28/23 23:53 Last Admin: 01/01/23 08:16 Dose: 40 mg Sertraline HCl (Sertraline Hcl 100 Mg Tablet) 100 mg PO DAILY [facility] Stop: 01/29/23 08:59 Last Admin: 01/01/23 08:16 Dose: 100 mg Warfarin Sodium (Warfarin Sod 2 Mg Tab) 2 mg PO DAILY@1600 [facility] Stop: 01/31/23 15:59 Last Admin: 01/01/23 15:29 Dose: 2 mg
[2023-01-01] MEDS: ASPIRIN 81 MG ECTAB PO SCH (20:53)
[2023-01-01] MEDS: oxyCODONE HCL IR 5 MG TAB (IMMEDIATE RELEASE) PO PRN (21:40)
[2023-01-02] MEDS: LEVOTHYROXINE SODIUM 50 MCG TABLET PO SCH (05:21)
[2023-01-02 06:11] LABS: Hematocrit (blood only) 30.6 % (37.0-47.0); Hemoglobin 10.2 g/dl (12.0-16.0); Mean Corpuscular Hemoglobin 28.6 pg (25.0-34.0); Mean Corpuscular Hgb Conc 33.3 g/dL (32.0-36.0); Mean Corpuscular Volume 85.7 fL (80.0-100.0); Mean Platelet Volume 11.7 fL (9.4-12.4); Platelet Count 220 K/uL (130-400); RDW Coefficient of Variation 14.4 % (11.5-14.5); RDW Standard Deviation 44.8 fL (36.4-46.3); Red Blood Count 3.57 M/uL (4.20-5.40); White Blood Count 7.81 K/ul (4.8-10.8)
[2023-01-02 06:26] LABS: BUN Creatinine Ratio 23.2 (10-20); Calcium 9.4 mg/dl (8.6-10.3); Est GFR (African American) 76.7 ml/min; Est GFR (Non-African American) 66.2 ml/min; Phosphorus 2.2 mg/dl (2.5-4.9); Potassium 3.4 mmol/L (3.5-5.1)
[2023-01-02] MEDS ORDERED: POTASSIUM CHLORIDE CRTAB 20 MEQ TABCR PO STA (06:31)
[2023-01-02 08:09] LABS: INR 2.1 (0.9-1.1); Partial Thromboplastin Ratio 1.4; Partial Thromboplastin Time 39.6 Seconds (21.0-31.0); Prothrombin Time 21.9 Seconds (9.0-12.0)
[2023-01-02] MEDS: POT PHOSPHATE MONOBASIC W/ SOD TAB PO SCH ×2 (08:39→13:13)
[2023-01-02] MEDS: PANTOprazole 40 MG TAB PO PRN (08:40)
[2023-01-02] MEDS: amLODIPine BESYLATE 5 MG TAB PO SCH (08:40)
[2023-01-02] MEDS: ISOSORBIDE MONO EXTENDED REL 60 MG TABCR PO SCH (08:40)
[2023-01-02] MEDS: SERTRALINE HCL 100 MG TABLET PO SCH (08:41)
[2023-01-02] MEDS: METOPROLOL TARTRATE 25 MG TAB PO SCH (08:41)
[2023-01-02] MEDS ORDERED: POTASSIUM CHLORIDE CRTAB 20 MEQ TABCR PO SCH (09:00)
[2023-01-02] MEDS ORDERED: METOPROLOL TARTRATE 25 MG TAB PO ONE (12:55)
--- NOTE | 2023-01-02 13:00 | Cardiology Progress Note ---
Date of Service January 02, 2023 Assessment & Plan (1) Elevated troponin I level: (2) CAD (coronary artery disease): (3) Pancreatic adenocarcinoma: (4) Acute pancreatitis: (5) Paroxysmal atrial fibrillation with RVR: Plan * Transition prior to hospital treatment with long-acting carvedilol to metoprolol succinate 50 mg twice daily. * INR 2.1 today. Continue present treatment with Coumadin 2 mg daily which she has tolerated well in the past. Future considerations include transitioning her to Eliquis for stroke prophylaxis as well as venous thromboembolic prophylaxis given her diagnosis of adenocarcinoma. Patient has longstanding history of chronic stable angina. Continue prior to hospital treatment with aspirin, isosorbide mononitrate 120 mg daily in a.m., and 60 mg at bedtime, amlodipine 5 mg daily. She is not on statin therapy due to longstanding history of statin intolerance. Admission and Anticipated Discharge Date Admission Date: December 29, 2022 Subjective Patient without cardiac complaints. Notes mild ongoing nauseousness. Remains in atrial fibrillation. Rates under much better control with ventricular rates in the 90s to 100 bpm range. Physical Exam Constitutional: WD/WN, vitals as above well nourished and + obese; no acute distress Respiratory: normal respiratory effort, lungs clear to auscultation normal respiratory effort; no respiratory distress, no labored breathing and no retractions Auscultation: no crackles, no rales, no rhonchi and no wheezes Cardiovascular: RRR, no murmur, no edema Rate/Rhythm: regular rate and regular rhythm Heart Sounds: normal S1 and normal S2; no murmur Vessels: radial pulses present; no JVD and no carotid bruit Extremities: + edema (Trace to mild bilateral pedal edema) Gastrointestinal (Abdomen): Inspection/Auscultation: abdomen normal to inspection; abdomen not distended Percussion/Palpation: + abdomen tender and abdomen soft; no guarding and abdomen not rigid Musculoskeletal: Extremities: no cyanosis and no clubbing Skin: no rashes, warm and dry no jaundice Neurologic: PERRL, EOMI, accommodation nl, no face palsy, no dysarthria CN's II-XI intact bilaterally and moves all extremities; no focal motor deficits Motor/Sensory: no tremor and no asterixis Psychiatric: A+Ox3, euthymic affect Orientation: alert and oriented x 3 Lymphatic: no lymphedema Results & Data Vital Signs (Past 12 Hours) Vital Signs Temp Pulse Pulse Resp BP Pulse Ox O2 Del Method 01/02/23 11:04 37.2 C 77 16 113/70 95 Room Air 01/02/23 07:42 92 H 01/02/23 07:37 36.7 C 83 18 142/70 H 92 Room Air 01/02/23 03:03 36.4 C L 90 20 145/73 H 95 Room Air (2) CAD (coronary artery disease) Associated angina: with unspecified angina Coronary Disease-Associated Artery/Lesion type: unspecified vessel or lesion type [place] vs. transplanted heart: [place] heart Qualified Code(s): I25.119 - Atherosclerotic heart disease of [place] coronary artery with unspecified angina pectoris
--- NOTE | 2023-01-02 13:14 | Discharge Summary ---
Date of Service January 02, 2023 Admission HPI Per Admitting Provider History obtained from patient, family, and records. Medical history significant for CAD status post CABG/stent, PVD, SSS status post PPM/history DVT on Coumadin, mild MR, hypertension, hyperlipidemia/statin intolerance, GERD, recent diagnosis of pancreatic adenocarcinoma, primary hyperparathyroidism status post surgery, hypothyroidism, anxiety/mood disorder tremors. Recent confinement December 21 to 2022 for acute pancreatitis. Outpatient CT abdomen pelvis showed pancreatitis with ruptured pancreatic tail cystic lesions. Endoscopic ultrasound with FNA of pancreatic mass later disclosed pancreatic adenocarcinoma on cytology. Outpatient [facility] medical [place]ology referrals made by GI specialist. A day after returning home, patient noted recurrence of achy abdominal pain with nausea and emesis. Could not keep anything down. No chest pain, usual SOB. Usual leg swelling. Patient not sure about fluid retention. No cough symptoms. No fever, no chills. Patient consulted ER for worsening symptoms. Lowest O2 sats of 80s noted at the ER. Lasix given at the ER for CHF. 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 Admission Exam Per Admitting Provider GENERAL: Comfortable, no respiratory distress SKIN: Normal color, warm HEENT: [place] palpebral conjunctivae, no ptosis, dry buccal mucosa, nasal cannula in place NECK : Supple, no tenderness CHEST : Decreased breath sounds, no tenderness HEART : RRR, no obvious murmurs ABDOMEN: Some distention, epigastric tenderness EXTREMITIES : Minimal LE swelling, no LE tenderness, no other conspicuous defo rmities noted NEUROLOGIC : Coherent, no facial asymmetry, no other gross focality Principal Diagnosis Acute pancreatitis with pseudocyst, Pancreatic adenocarcinoma Discharge Exam General: Lying comfortably in bed, not in distress, on room air HEENT: EOMI, RENEA, MMM Chest: Clear breath sounds bilaterally, no wheezes or crackles CVS: Irregular, normal heart sounds, no murmur Abdomen: Soft, nontender, not distended, normal bowel sounds Neuro: Awake, alert, oriented, conversing well, non focal Extremities: No cyanosis, clubbing or edema Discharge Data Allergies Allergy/AdvReac Type Severity Reaction Status Date / Time Iodinated Contrast Media Allergy Severe Hives, Verified 12/29/22 20:18 anaphylaxis ether Allergy Unknown Unknown Verified 12/29/22 20:18 prednisone AdvReac Severe GI pain > Verified 12/29/22 20:18 pancreatitis rosiglitazone AdvReac Severe Blood clots Verified 12/29/22 20:18 atorvastatin [From Lipitor] AdvReac Intermediate Muscle Pain Verified 12/29/22 20:18 ezetimibe [From Zetia] AdvReac Intermediate Muscle Pain Verified 12/29/22 20:18 lisinopril AdvReac Intermediate Cough Verified 12/29/22 20:18 losartan AdvReac Intermediate N/V Verified 12/29/22 20:18 ranitidine AdvReac Intermediate N/V, Verified 12/29/22 20:18 achiness rosuvastatin [From Crestor] AdvReac Intermediate Muscle Pain Verified 12/29/22 20:18 Consultations 12/29/22 21:08 ED Decision to Admit Stat 12/29/22 22:07 Consult Oncology Routine 12/29/22 23:38 Consult Cardiology Routine Consult Gastroenterology Routine Ordered Studies 12/29/22 18:07 CT abd pelvis wo con Stat Laboratory Results WBC 7.81 K/ul (4.8-10.8) 01/02/23 05:18 RBC 3.57 M/uL (4.20-5.40) L 01/02/23 05:18 Hgb 10.2 g/dl (12.0-16.0) L 01/02/23 05:18 Hct 30.6 % (37.0-47.0) L 01/02/23 05:18 MCV 85.7 fL (80.0-100.0) 01/02/23 05:18 MCH 28.6 pg (25.0-34.0) 01/02/23 05:18 MCHC 33.3 g/dL (32.0-36.0) 01/02/23 05:18 RDW Std Deviation 44.8 fL (36.4-46.3) 01/02/23 05:18 RDW Coeff of [place] 14.4 % (11.5-14.5) 01/02/23 05:18 Plt Count 220 K/uL (130-400) 01/02/23 05:18 MPV 11.7 fL (9.4-12.4) 01/02/23 05:18 Immature Gran % (Auto) 0.7 % 12/30/22 11:06 Neut % (Auto) 80.9 % 12/30/22 11:06 Lymph % (Auto) 6.8 % 12/30/22 11:06 [place] % (Auto) 10.0 % 12/30/22 11:06 Eos % (Auto) 1.4 % 12/30/22 11:06 Baso % (Auto) 0.2 % 12/30/22 11:06 Neut # (Auto) 7.96 K/uL (1.40-6.50) H 12/30/22 11:06 Lymph # (Auto) 0.67 K/uL (1.2-3.4) L 12/30/22 11:06 [place] # (Auto) 0.98 K/uL (0.11-0.59) H 12/30/22 11:06 Eos # (Auto) 0.14 K/uL (0-0.50) 12/30/22 11:06 Baso # (Auto) 0.02 K/uL (0-0.2) 12/30/22 11:06 Immature Gran # (Auto) 0.07 K/uL (0.01-0.20) 12/30/22 11:06 Absolute Nucleated RBC Cancelled 12/30/22 05:27 Nucleated RBC % (auto) Cancelled 12/30/22 05:27 Neutrophils % (Manual) Cancelled 12/30/22 05:27 Band Neutrophils % Cancelled 12/30/22 05:27 Lymphocytes % (Manual) Cancelled 12/30/22 05:27 Prolymphocyte % Cancelled 12/30/22 05:27 Reactive Lymphs % (Man) Cancelled 12/30/22 05:27 Monocytes % (Manual) Cancelled 12/30/22 05:27 Eosinophils % (Manual) Cancelled 12/30/22 05:27 Basophils % (Manual) Cancelled 12/30/22 05:27 Metamyelocytes % (Man) Cancelled 12/30/22 05:27 Myelocytes % (Man) Cancelled 12/30/22 05:27 Promyelocytes % (Man) Cancelled 12/30/22 05:27 Blast Cells % (Manual) Cancelled 12/30/22 05:27 Plasma Cell % (Manual) Cancelled 12/30/22 05:27 Other Cells % Cancelled 12/30/22 05:27 Nucleated RBC % Cancelled 12/30/22 05:27 Neutrophils # (Manual) Cancelled 12/30/22 05:27 Band Neutrophils # Cancelled 12/30/22 05:27 Total Absolute Neuts Cancelled 12/30/22 05:27 Lymphocytes # (Manual) Cancelled 12/30/22 05:27 Prolymphocyte # Cancelled 12/30/22 05:27 Reactive Lymphs # Cancelled 12/30/22 05:27 Total Abs Lymphocytes Cancelled 12/30/22 05:27 Monocytes # (Manual) Cancelled 12/30/22 05:27 Eosinophils # (Manual) Cancelled 12/30/22 05:27 Basophils # (Manual) Cancelled 12/30/22 05:27 Metamyelocytes # (Man) Cancelled 12/30/22 05:27 Myelocytes # (Manual) Cancelled 12/30/22 05:27 Promyelocytes # (Man) Cancelled 12/30/22 05:27 Blast Cells # (Man) Cancelled 12/30/22 05:27 Plasma Cell # (Manual) Cancelled 12/30/22 05:27 Other Cells # Cancelled 12/30/22 05:27 Nucleated RBCs # (Man) Cancelled 12/30/22 05:27 Hypersegmented Neuts Cancelled 12/30/22 05:27 Hyposegmented Neuts Cancelled 12/30/22 05:27 Hypogranular Neuts Cancelled 12/30/22 05:27 Large Granular Lymphs Cancelled 12/30/22 05:27 # Lrg Granular Lymphs Cancelled 12/30/22 05:27 Hairy Cells Cancelled 12/30/22 05:27 Smudge Cells Cancelled 12/30/22 05:27 Toxic Granulation Cancelled 12/30/22 05:27 Toxic Vacuolation Cancelled 12/30/22 05:27 Dohle Bodies Cancelled 12/30/22 05:27 Dede Rods Cancelled 12/30/22 05:27 Platelet Estimate Cancelled 12/30/22 05:27 Hypogranular Platelets Cancelled 12/30/22 05:27 Giant Platelets Cancelled 12/30/22 05:27 Platelet Satelliting Cancelled 12/30/22 05:27 RBC Morphology Cancelled 12/30/22 05:27 Polychromasia Cancelled 12/30/22 05:27 Hypochromasia Cancelled 12/30/22 05:27 Poikilocytosis Cancelled 12/30/22 05:27 Basophilic Stippling Cancelled 12/30/22 05:27 Anisocytosis Cancelled 12/30/22 05:27 Microcytosis Cancelled 12/30/22 05:27 Macrocytosis Cancelled 12/30/22 05:27 Spherocytes Cancelled 12/30/22 05:27 Pappenheimer Bodies Cancelled 12/30/22 05:27 Sickle Cells Cancelled 12/30/22 05:27 Target Cells Cancelled 12/30/22 05:27 Tear Drop Cells Cancelled 12/30/22 05:27 Ovalocytes Cancelled 12/30/22 05:27 Stomatocytes Cancelled 12/30/22 05:27 [place] Bodies Cancelled 12/30/22 05:27 Echinocytes Cancelled 12/30/22 05:27 Acanthocytes (Spur) Cancelled 12/30/22 05:27 Rouleaux Cancelled 12/30/22 05:27 RBC Agglutinates Cancelled 12/30/22 05:27 Schistocytes Cancelled 12/30/22 05:27 Sezary Cell Cancelled 12/30/22 05:27 PT 21.9 Seconds (9.0-12.0) H 01/02/23 05:18 INR 2.1 (0.9-1.1) H 01/02/23 05:18 APTT 39.6 Seconds (21.0-31.0) H 01/02/23 05:18 PTT Ratio 1.4 01/02/23 05:18 VBG pH 7.34 (7.36-7.41) L 12/29/22 19:03 VBG pCO2 47 mmHg (38-50) 12/29/22 19:03 VBG pO2 35 mmHg 12/29/22 19:03 VBG HCO3 25 mmol/L 12/29/22 19:03 VBG O2 Saturation 60.3 % 12/29/22 19:03 VBG Base Excess -0.8 mEq/L 12/29/22 19:03 Sodium 138 mmol/L (136-145) 01/02/23 05:18 Potassium 3.4 mmol/L (3.5-5.1) L 01/02/23 05:18 Chloride 102 mmol/L (98-107) 01/02/23 05:18 Carbon Dioxide 28 mmol/L (21-32) 01/02/23 05:18 Anion Gap 8 (3-11) 01/02/23 05:18 BUN 19 mg/dl (6-23) 01/02/23 05:18 Creatinine 0.82 mg/dl (0.6-1.2) 01/02/23 05:18 Est Cr Clr Drug Dosing 59.0 ml/min 01/02/23 05:18 Est GFR ( Amer) 76.7 ml/min 01/02/23 05:18 Est GFR (Non-Af Amer) 66.2 ml/min 01/02/23 05:18 BUN/Creatinine Ratio 23.2 (10-20) H 01/02/23 05:18 Glucose 113 mg/dl (70-99(Fasting)) H 01/02/23 05:18 Estimat Average Glucose 154 mg/dl 12/29/22 19:03 Hemoglobin A1c 7.0 % (4.5-5.6) H 12/29/22 19:03 Calcium 9.4 mg/dl (8.6-10.3) 01/02/23 05:18 Phosphorus 2.2 mg/dl (2.5-4.9) L 01/02/23 05:18 Magnesium 2.0 mg/dl (1.7-2.4) 01/02/23 05:18 Total Bilirubin 0.8 mg/dl (0.2-1.0) 12/30/22 05:27 Direct Bilirubin 0.4 mg/dl (0-0.2) H 12/29/22 17:33 AST 30 U/L (13-39) 12/30/22 05:27 ALT 31 U/L (7-52) 12/30/22 05:27 Alkaline Phosphatase 156 U/L (34-104) H 12/30/22 05:27 Troponin I High Sens 538.5 pg/ml (0-14) H* D 12/31/22 05:23 B-Natriuretic Peptide 903 pg/ml (0-100) H 12/31/22 05:23 Total Protein 6.4 gm/dl (6.0-8.3) 12/30/22 05:27 Albumin 3.4 gm/dl (3.4-5.0) 12/30/22 05:27 Globulin 3.0 gm/dl (2.5-4.0) 12/30/22 05:27 Albumin/Globulin Ratio 1.1 (0.9-2) 12/30/22 05:27 Amylase 152 U/L (25-115) H 12/29/22 19:03 Lipase 128 U/L (11-82) H 12/29/22 17:33 Carcinoembryonic Ag 1.5 ng/ml (0-2.5) 12/29/22 17:33 TSH 3.117 uIu/ml (0.300-4.500) 12/29/22 17:33 Urine Color Yellow 12/29/22 20:50 Urine Appearance Clear (Clear) 12/29/22 20:50 Urine pH 5.5 (4.5-7.5) 12/29/22 20:50 Ur Specific [place] 1.009 (1.000-1.030) 12/29/22 20:50 Urine Protein Trace (Negative) H 12/29/22 20:50 Urine Glucose (UA) Negative (Negative) 12/29/22 20:50 Urine Ketones 1+ (Negative) H 12/29/22 20:50 Urine Blood 1+ (Negative) H 12/29/22 20:50 Urine Nitrite Negative (Negative) 12/29/22 20:50 Urine Bilirubin Negative (Negative) 12/29/22 20:50 Urine Urobilinogen Negative (Negative) 12/29/22 20:50 Ur Leukocyte Esterase Negative (Negative) 12/29/22 20:50 Urine WBC (Auto) 1-5 /hpf (0-5) 12/29/22 20:50 Urine RBC (Auto) 0-4 /hpf (0-4) 12/29/22 20:50 U Hyaline Cast (Auto) 1-5 /lpf (0-5) 12/29/22 20:50 U Epithel Cells (Auto) 10-20 /lpf (0-5) H 12/29/22 20:50 Urine Bacteria (Auto) Negative (Negative) 12/29/22 20:50 SARS-CoV-2, RNA, NAAT NEGATIVE (NEGATIVE) 12/29/22 20:00 Blood Parasites ID Cancelled 12/30/22 05:27 Impressions Abdomen/Pelvis CT 12/29/22 18:07 Exam(s): CT ABDOMEN + PELVIS Without Contrast EXAM: CT Abdomen and Pelvis Without Intravenous Contrast CLINICAL HISTORY: Reason for exam: ro sbo. TECHNIQUE: Axial computed tomography images of the abdomen and pelvis without intravenous contrast. CTDI is 26.19 mGy and DLP is 1447.85 mGy-cm. Automated exposure control was utilized for the study. A dose lowering technique was utilized adhering to the principles of ALARA. COMPARISON: CT abdomen/pelvis on 02/24/2018 FINDINGS: Lung bases: Unremarkable. No mass. No consolidation. ABDOMEN: Liver: Hepatomegaly. Gallbladder and bile ducts: Prior cholecystectomy. No ductal dilation. Pancreas: Peripancreatic fluid is concerning for acute pancreatitis. Cystic structures in the pancreatic body and tail measure approximately 3. 3 x 3.3 x 3.4 cm and 2.4 x 1.8 x 2.3 cm, concerning for pseudocysts, increased in size compared to prior exam. Spleen: Small splenule. Adrenals: Unremarkable. No mass. Kidneys and ureters: Nonspecific bilateral perinephric fat stranding. No hydronephrosis or stone. Left renal cyst. Stomach and bowel: Evaluation of the stomach is limited by under distention. Diverticulosis without evidence of diverticulitis. No small bowel obstruction. PELVIS: Appendix: Appendix is not visualized on this exam. Bladder: Underdistended bladder limits evaluation. No stones. Reproductive: Prior hysterectomy. ABDOMEN and PELVIS: Intraperitoneal space: Small amount of fluid in the pelvis. No free air. Bones/joints: Degenerative changes of the spine. No acute fracture. No dislocation. Soft tissues: Injection granulomas in the left gluteal soft tissues. Small fat-containing umbilical hernia. Vasculature: Atherosclerotic changes of the vasculature. Ectasia of the abdominal aorta. Phleboliths in the pelvis. No abdominal aortic aneurysm. Lymph nodes: Unremarkable. No enlarged lymph nodes. Tubes, lines and devices: Median sternotomy changes. Pacer wires partially visualized heart. Coronary artery calcifications. IMPRESSION: 1. Peripancreatic fluid is concerning for acute pancreatitis. Cystic structures in the pancreatic body and tail measure approximately 3.3 x 3. 3 x 3.4 cm and 2.4 x 1.8 x 2.3 cm, concerning for pseudocysts, increased in size compared to prior exam. 2. Small amount of fluid in the pelvis. 3. Hepatomegaly. Electronically signed by: Palma Perez M.D. 12/29/22 19:39 PM Chest X-Ray 12/30/22 08:00 XR chest 1V portable HISTORY: Shortness of breath. ffup, chf COMPARISON: Chest 12/29/2022. FINDINGS: No focal lung consolidations to suggest a pneumonia. No evidence for pulmonary edema. The cardiac silhouette remains mildly enlarged. The left-sided pacemaker again noted. There are poststernotomy changes. Old, healed right humeral neck fracture again noted. There are calcifications within the aortic knob. Mild elevation of the right hemidiaphragm, unchanged. IMPRESSION: No significant change compared to the prior study. No acute process. ACT 112: Negative or not required by law. Electronically signed by: Preston Schroeder M.D. 12/30/2022 9:30 AM Hospital Course (1) Acute pancreatitis: (2) Pancreatic pseudocyst: (3) Paroxysmal atrial fibrillation with RVR: (4) Pancreatic adenocarcinoma: (5) CKD (chronic kidney disease) stage 3, GFR 30-59 ml/min: (6) Elevated troponin I level: Plan 82 year old female with h/o CABG in 2005, statin intolerance, hx of dual chamber pacer 2011, PAF anticoagulated on warfarin, history of DVT/PE on warfarin, HTN, HLD, hypothyroidism, hyperparathyroidism s/p parathyroidectomy, CKD III etc with recent admission for acute pancreatitis/pancreatic mass and diagnosed with pancreatic adenocarcinoma with EGD/EUS presented to ED with abdominal pain, N/V. Patient was found to have acute pancreatitis with pseudocyst. Started on conservative management with bowel rest, IVF with rapid improvement in symptoms. Diet was advanced gradually and she tolerated breakfast without issues. Abdominal pain has resolved, no nausea or vomiting, Tolerating diet well. She had episode of hypoxia on admission which rapidly resolved with a dose of Lasix in the ED and was on room air the next morning. She has been on room air since. She also had elevated troponin which was attributed to demand ischemia per cardiology given no ischemic changes on EKG, echo and no symptoms. Patient was in sinus rhythm until yesterday morning when she converted to atrial fibrillation and has been on A-fib since, rate controlled and it required changing of her beta-blockers from Coreg to metoprolol. She is asymptomatic from her A-fib and is rate controlled. Discussed with cardiology prior to discharge. Discharging on Toprol 50 twice daily instead of her home Coreg. No other medications were changed. She was seen by physical therapy and cleared for discharge home. She has upcoming appointment with Dr. Davis from Oncology on 01/08. She has also made referral to surgical oncology for further management of her pancreatic cancer. She is comfortable and stable for discharge. CT abdomen/pelvis 1. Peripancreatic fluid is concerning for acute pancreatitis. Cystic structures in the pancreatic body and tail measure approximately 3.3 x 3. 3 x 3.4 cm and 2.4 x 1.8 x 2.3 cm, concerning for pseudocysts, increased in size compared to prior exam. 2. Small amount of fluid in the pelvis. 3. Hepatomegaly. CXR- 1. Cardiomegaly and cardiac pacemaker without radiographic evidence of congestive failure. 2. No airspace consolidation or large pleural effusion is identified. Echocardiogram-EF 50-55%, moderate LVH with normal wall motion moderate size inferior and posterior wall abnormality with thinning and hypokinesia akinesia of segments (present on prior echocardiogram) Acute pancreatitis with pseudocyst-recent admission for pancreatitis and had underwent EGD/EUS and discovered to have pancreatic adenocarcinoma. She returns with recurrent acute pancreatitis with pancreatic pseudocyst in CT, lipase normal. -Improved rapidly with conservative management. Tolerating low-fat diet without issues. No more nausea vomiting or epigastric pain. -Follow-up with GI as outpatient. Elevated troponin- troponin trend noted, echo reviewed. denies any chest pain. EKG similar to prior. Seen by cardiology- suspected demand ischemia. Hypokalemia-resolved Hypoxia on admission-resolved. Received a dose of Lasix in the ED and on room air since. History of DVT/PE-on Coumadin without any bleeding issues. INR therapeutic. Continue home dose of Coumadin 2 Mg daily and follow-up with PCP as outpatient for further management with repeat INR within a week. Paroxysmal A fib with RVR-asymptomatic, seen by cardiology. Coreg changed to Toprol 50 twice daily at discharge per cardiology recommendations. She was started on heparin drip on admission due to subtherapeutic INR which was discontinued yesterday once INR was therapeutic and now only on Coumadin. Pancreatic cancer- newly diagnosed. Seen by oncology. OP follow up with surgeon and oncology for further work up H/o CAD s/p CABG 2005- on ASA, betablocker. Intolerant to statin HTN- on amlod. coreg changed to toprol this stay Hypothyroid- on synthroid CKD3- Cr at baseline Total Time Total Time Spent Total Time Spent (In Minutes): 45 Discharge Plan Discharge Items Patient Disposition: Home - Self-Care Reason For Visit: RESP FAILURE Discharge Diagnosis: Acute pancreatitis with pseudocyst, Pancreatic adenocarcinoma Activity: Resume your previous activity Non-emergency contact: Primary Care Provider, Lofter and Supervisor [employer] Winding Call non-emergency contact if: you have any medication questions, your symptoms worsen, your pain is concerning for you and you have a fever Follow-up/Referrals: Shonda Chakraborty MD [Primary Care Provider] - Robin Davis MD [Hospitalist] - 01/08/23 Diet: Low Fat Addtl Attending Provider Instructions: Stop your coreg and start metoprolol twice daily for better control of your heart rate Continue your coumadin Follow up with cancer doctor for further work up/management of your pancreatic cancer Follow up with your family doctor Pending Studies at Discharge: No Stand-Alone Forms: My Tesaris, Smoking Cessation Medications and DC Order Prescriptions: New metoprolol succinate 50 mg Tablet Extended Release 24 Hr 50 mg PO BID Qty: 60 0RF Continued aspirin 81 mg Tablet,Delayed Release (Dr/Ec) 81 mg PO QPM isosorbide mononitrate 60 mg Tablet Extended Release 24 Hr See Rx Instructions .ROUTE .COMPLEX Rx Instructions: 60 MG ORALLY; TAKES 120 MG QAM, THEN 60 MG QPM. levothyroxine 50 mcg Tablet 50 mcg PO QAM nitroglycerin 0.4 mg Tablet, Sublingual 1 tab Sublingual UD PRN (Reason: Chest Pain) omeprazole 20 mg capsule,delayed release(DR/EC) 20 mg PO DAILY PRN (Reason: Acid Reflux) alprazolam [Xanax] 0.25 mg tablet 0.25 mg PO TID PRN (Reason: Anxiety) dicyclomine 10 mg Capsule 10 mg PO QID PRN (Reason: Indigestion) cholecalciferol (vitamin D3) [Vitamin D3] 50 mcg (2,000 unit) tablet 2,000 unit PO QAM acetaminophen [Tylenol Extra Strength] 500 mg Tablet 1,000 mg PO Q6H PRN (Reason: knee pain) calcium carbonate [Calcium 600] 600 mg calcium (1,500 mg) Tablet 600 mg PO DAILY sertraline 100 mg tablet 100 mg PO DAILY amlodipine 5 mg tablet 5 mg PO DAILY cholestyramine (with sugar) 4 gram powder in packet 1 ea PO Q OTHER DAY famotidine 20 mg Tablet 20 mg PO BID PRN (Reason: Dyspepsia) Changed warfarin 2 mg tablet 2 mg PO PM Qty: 30 0RF Discontinued carvedilol phosphate [Coreg CR] 40 mg capsule, ER multiphase 24 hr 40 mg PO QAM Patient Comments: BRAND NECESSARY Rx Instructions: BRAND NECESSARY carvedilol phosphate 20 mg Capsule, Er Multiphase 24 Hr 20 mg PO HS Patient Comments: BRAND NECESSARY Rx Instructions: BRAND NECESSARY ciprofloxacin HCl 500 mg tablet 500 mg PO BID 5 Days Qty: 10 0RF Rx Instructions: STARTED 12/25/22 FOR 5 DAYS Discharge Orders: Discharge Order (Routine); Ordered 01/02/23 Ordered By: Joce Velasquez/Other Patient Handouts: A1C Admission Data Admit Date/Time: 12/29/22 22:04 Attending Provider: Joce Alaniz Admit Provider: Trip Tobin Primary Care Provider: Shonda Chakraborty Other Providers: Maribel Casas ; Pierce Kumar ; Cheyanne Siddiqui ; Faith Samuels ; Mir Cruz ; Lamin Zayas ; Cindy Noriega ; [facility],No Attending ; Trip Tobin ; Carine Ennis ; Victoriano Stephens ; Wai Doyle ; Simon Moore ; Tim Mercado ; Josh Noonan Rebecca K ; Roberta Redd ; Carine Lemons ; Reese Hair ; Vicki Tillman ; Lizet Montes ; Francois Yoder ; Nellie Conn ; Katya Peralta ; Jovita Schulz ; Shani Joshi ; Williams Eubanks ; Enio Dale ; Magdaleno Wiley ; Lavelle Nayak ; Walter Vickers ; Beth Jenkins ; Kelly Mas ; Rina Nicole ; Annabelle Stewart ; Yahir Kim ; Harish Meek ; Luis Alberto Brooks ; Carine Ibarra ; Lorenza Ambrosio Jr Other Interventions: Discharge Summary Assessment (RN) Last Done: 01/02/23 13:28
[2023-01-02] MEDS ORDERED: METOPROLOL SUCC 50MG EXT REL TAB PO SCH (21:00)
== END 2023-01-02 16:01 | disposition home or self-care (01) | DRG 439 ==
LOC: ED 17:17 → 4W 22:04
DX: E03.9 Hypothyroidism, unspecified; E87.6 Hypokalemia; Z91.041 Radiographic dye allergy status; K85.90 Acute pancreatitis without necrosis or infection, unspecified; K86.3 Pseudocyst of pancreas; Z79.890 Hormone replacement therapy; E78.5 Hyperlipidemia, unspecified; C25.9 Malignant neoplasm of pancreas, unspecified; F41.9 Anxiety disorder, unspecified; Z79.82 Long term (current) use of aspirin; N18.30 Chronic kidney disease, stage 3 unspecified; Z95.1 Presence of aortocoronary bypass graft; R25.1 Tremor, unspecified; I24.8 Other forms of acute ischemic heart disease; Z86.711 Personal history of pulmonary embolism; Z86.718 Personal history of other venous thrombosis and embolism; I73.9 Peripheral vascular disease, unspecified; R73.9 Hyperglycemia, unspecified; I48.0 Paroxysmal atrial fibrillation; Z79.899 Other long term (current) drug therapy; Z20.822 Contact with and (suspected) exposure to COVID-19; I12.9 Hypertensive chronic kidney disease with stage 1 through stage 4 chronic kidney disease, or unspecified chronic kidney disease; Z88.8 Allergy status to other drugs, medicaments and biological substances; Z95.0 Presence of cardiac pacemaker; I25.118 Atherosclerotic heart disease of native coronary artery with other forms of angina pectoris; Z79.01 Long term (current) use of anticoagulants; K21.9 Gastro-esophageal reflux disease without esophagitis; F39 Unspecified mood [affective] disorder; R09.02 Hypoxemia

== ENCOUNTER 2023-10-24 17:28 | Inpatient (IN) ==
--- NOTE | 2023-10-24 18:02 | Emergency Department Note ---
Impression & Plan Subcapital fracture of right hip, Closed Colles' fracture of right radius, Contusion of left wrist, Head injury, Contusion of face, Fall ED Provider Note NAME: PENNIE BARRAZA AGE: 83 SEX: F : 1940 ARRIVES VIA: Ambulance INFORMANT: Patient, EMS ED PROVIDER(S): Carlos Alberto Martinez DO CHIEF COMPLAINT: Fall HPI: The patient is an 83-year-old female who presented to the emergency department because of a fall. The patient fell yesterday while she was gardening. She was trying to pull weeds up and when the wheel gave way she fell backwards landing onto her right side. She injured her right upper extremity as well as her right hip. She was able to ambulate initially but had worsening pain. She was seen at her primary care physician's office. She was sent to the emergency department for further evaluation. The patient received fentanyl prior to arrival after I received a prehospital medical command call about the patient. The patient did strike her face on the right side. She denies having any headache or neck pain. She does take blood thinners. The patient denies having any nausea or vomiting at this time. She did have an injury to her right wrist as well as her left wrist. She states the left wrist no longer has any pain but she does have ecchymosis over this area. The patient denies any loss of consciousness ROS: See above HPI for pertinent positives & negatives. A total of 10 systems reviewed and were otherwise negative. PAST MEDICAL HISTORY: See Below PAST SURGICAL HISTORY: See Below FAMILY HISTORY: See Below SOCIAL HISTORY: See Below HOME MEDICATIONS: See Below ALLERGIES: See Below VITALS: See Below PHYSICAL EXAMINATION: GENERAL: The patient is awake and alert. She is anxious and appears to be uncomfortable. EYES: The conjunctivae are clear. The pupils are round and reactive. EARS, NOSE, MOUTH AND THROAT: The nose is without any evidence of any deformity. Ecchymosis was noted over the right side of the face. NECK: The neck is nontender and supple. RESPIRATORY: Normal respiratory effort is noted there is no evidence of wheezing rhonchi or rales CARDIOVASCULAR: Regular rate and rhythm noted there no murmurs rubs or gallops normal S1 normal S2. GASTROINTESTINAL: The abdomen is soft. Abdomen is nontender. BACK: No midline tenderness or or step-off noted range of motion in flexion extension as well as rotation no signs of muscle spasm noted MUSCULOSKELETAL/EXTREMITIES: There is shortening and internal rotation noted of the right hip. Pulses are symmetric in both feet. There is tenderness to palpation over both wrists. There is ecchymosis over the palmar aspect of the left wrist. There is no tenderness with range of motion testing of either shoulder or elbow. SKIN: There is no obvious evidence of any rash. There are no petechiae, pallor or cyanosis noted. NEUROLOGIC: Patient is awake alert and oriented x3. MEDICAL DECISION MAKING: The patient is an 83-year-old female who presented to the emergency department for hip pain. The patient had a fall yesterday. She fell backwards striking her right hip her right wrist as well as the right side of her face. The patient was treated pain medication in the emergency department. Patient was reevaluated multiple times. The patient does appear to have an impacted right subcapital hip fracture as well as a Colles' fracture. I discussed the patient's laboratory and radiographic studies with her. The case was also discussed with the [facility]. They have agreed to evaluate the patient in the emergency department for further management and disposition. Triage Nursing notes reviewed. Prior medical records reviewed Vital Signs: reviewed and remarkable for elevated blood pressure. Differential diagnosis: Fracture, subluxation, dislocation, contusion, ligamentous injury, neurovascular, compartment syndrome, rhabdomyolysis, as well as other pathologies. ER treatment provided: See below Diagnostics interpreted by me: ECG: EKG was obtained in the emergency department. My interpretation is atrial paced rhythm at [address] segment abnormalities within nonspecific interventricular conduction delay was noted. There was no PVCs. This was compared to a tracing from January 22, 2023. Ventricular paced rhythm has been replaced by atrial paced rhythm compared to the previous tracing. Cardiac Monitoring: An order was placed for continuous cardiac monitoring. The monitor shows a rate of 82 bpm with paced rhythm. Laboratory studies: As stated above and show below. Imaging studies: See below. Radiographic imaging was reviewed by myself Consultation(s): I discussed this case with Dr. Banda who was on-call for the [facility] Past Med/Surg History Medical History Abdominal pain Carotid artery stenosis LICA/FITZ <50% stenosis, Right subclavian stenosis vs. occlusion with abnormal flow noted in vertebral artery per 08/2019 carotid duplex Chronic back pain Osteoarthritis Paroxysmal atrial fibrillation Pacemaker 08/03 SSS, last pacer check 01/2020 IPMN (intraductal papillary mucinous neoplasm) HTN (hypertension) Dyslipidemia Pulmonary embolism remote years ago DVT (deep venous thrombosis) GERD (gastroesophageal reflux disease) Hypothyroidism CAD (coronary artery disease) CABG x5 in 2005 in [place] with BROWN to LAD, SVG to diagonal, SVG to OM, SVG to RPDA, and SVG to the distal RCA, PCI x3 Surgical History Pacemaker placement H/O parathyroidectomy H/O arthroscopy of shoulder H/O arthroscopy of knee Hx of hemorrhoidectomy S/P BSO (bilateral salpingo-oophorectomy) History of hysterectomy Hx of cholecystectomy S/P CABG x 3 CABG x5 in 2005 in [place] with BROWN to LAD, SVG to diagonal, SVG to OM, SVG to RPDA, and SVG to the distal RCA Hx of appendectomy Hx of adenoidectomy Hx of tonsillectomy Hx of cataract surgery Family History Mother Stroke Social History Smoking Status: Never smoker Second Hand Exposure: No; Do You Dip or Chew Tobacco: No; Hx Alcohol Use: No Hx Substance Use: No Preferred Language: Turkmen Communication Ability: Effective Plastics Technician Required: No Beliefs That Will Affect Care: None marital status: Current Living Situation: Family Current Living Situation Comment: Daughter LIVES WITH PT Feels Safe at Home: Yes Assistive Devices: None Allergies Allergies Allergy/AdvReac Type Severity Reaction Status Date / Time Iodinated Contrast Media Allergy Severe Hives, Verified 02/02/23 14:31 anaphylaxis ether Allergy Unknown Unknown Verified 02/02/23 14:31 prednisone AdvReac Severe GI pain > Verified 02/02/23 14:31 pancreatitis rosiglitazone AdvReac Severe Blood clots Verified 02/02/23 14:31 atorvastatin [From Lipitor] AdvReac Intermediate Muscle Pain Verified 02/02/23 14:31 ezetimibe [From Zetia] AdvReac Intermediate Muscle Pain Verified 02/02/23 14:31 lisinopril AdvReac Intermediate Cough Verified 02/02/23 14:31 losartan AdvReac Intermediate N/V Verified 02/02/23 14:31 ranitidine AdvReac Intermediate N/V, Verified 02/02/23 14:31 achiness rosuvastatin [From Crestor] AdvReac Intermediate Muscle Pain Verified 02/02/23 14:31 Home Meds Home Medications Medication Instructions Recorded Confirmed aspirin 81 mg tablet,delayed 81 mg PO QPM 03/19/18 02/02/23 release isosorbide mononitrate 60 mg 120 mg PO QAM 03/19/18 02/02/23 tablet,extended release 24 hr levothyroxine 50 mcg tablet 50 mcg PO DAILYBB 03/19/18 02/02/23 nitroglycerin 0.4 mg sublingual 1 tab sublingual UD PRN Chest Pain 03/19/18 02/02/23 tablet omeprazole 20 mg capsule,delayed 20 mg PO DAILY PRN Acid Reflux 05/07/20 02/02/23 release alprazolam 0.25 mg tablet (Xanax) 0.25 mg PO TID PRN Anxiety 06/18/20 02/02/23 cholecalciferol (vitamin D3) 50 2,000 unit PO QAM 06/18/20 02/02/23 mcg (2,000 unit) tablet (Vitamin D3) dicyclomine 10 mg capsule 10 mg PO QID PRN Indigestion 06/18/20 02/02/23 acetaminophen 500 mg tablet 1,000 mg PO Q6H PRN knee pain 02/24/21 02/02/23 (Tylenol Extra Strength) calcium carbonate (Calcium 600) 600 mg PO DAILY 11/09/21 02/02/23 amlodipine 5 mg tablet 5 mg PO DAILY 12/21/22 02/02/23 cholestyramine (with sugar) 4 gram 1 ea PO Q OTHER DAY 12/21/22 02/02/23 powder for susp in a packet famotidine 20 mg tablet 20 mg PO BID PRN Dyspepsia 12/21/22 02/02/23 sertraline 100 mg tablet 100 mg PO DAILY 12/21/22 02/02/23 isosorbide mononitrate 60 mg 60 mg PO QPM 01/22/23 02/02/23 tablet,extended release 24 hr Previous Rx's Medication Instructions Recorded metoprolol succinate 50 mg 50 mg PO BID #60 tabs 01/02/23 tablet,extended release 24 hr warfarin 2 mg tablet 2 mg PO PM #30 tabs 01/02/23 Results & Data (ED) Vital Signs Vital Signs - 24 hr 10/24/23 17:49 10/24/23 17:49 Temperature 37.1 C Temperature Source Oral Pulse Rate 82 Respiratory Rate 18 Respiratory Effort / Characteristics Non-Labored Spontaneous Respiratory Depth Normal Respiratory Pattern Regular Blood Pressure 194/108 H Blood Pressure Mean 136 Pulse Oximetry 95 95 Oxygen Delivery Method Nasal Cannula Nasal Cannula Oxygen Flow Rate 2 2 Sepsis Recent Fever Within 48 Hours No Sepsis New/Unexplained Change in Mental Status No Sepsis Action Taken by Nursing No Action Required Home Medications Current Medication List: was personally reviewed by me Laboratory Data Attestation: I reviewed the patient's lab results. 10/24/23 17:48 10/24/23 17:48 Lab Results 10/24/23 Range/Units 17:48 WBC 9.09 (4.8-10.8) K/ul RBC 4.87 (4.20-5.40) M/uL Hgb 14.0 (12.0-16.0) g/dl Hct 42.6 (37.0-47.0) % MCV 87.5 (80.0-100.0) fL MCH 28.7 (25.0-34.0) pg MCHC 32.9 (32.0-36.0) g/dL RDW Std Deviation 44.2 (36.4-46.3) fL RDW Coeff of [place] 13.8 (11.5-14.5) % Plt Count 158 (130-400) K/uL MPV 11.7 (9.4-12.4) fL Immature Gran % (Auto) 0.4 % Neut % (Auto) 82.1 % Lymph % (Auto) 11.4 % [place] % (Auto) 4.4 % Eos % (Auto) 1.3 % Baso % (Auto) 0.4 % Neut # (Auto) 7.45 H (1.40-6.50) K/uL Lymph # (Auto) 1.04 L (1.20-3.40) K/uL [place] # (Auto) 0.40 (0.11-0.59) K/uL Eos # (Auto) 0.12 (0.00-0.50) K/uL Baso # (Auto) 0.04 (0.00-0.20) K/uL Immature Gran # (Auto) 0.04 (0.01-0.20) K/uL PT 12.6 H (9.0-12.0) Seconds INR 1.2 H (0.9-1.1) APTT 30 (21-31) Seconds PTT Ratio 1.1 Sodium 138 (136-145) mmol/L Potassium 3.8 (3.5-5.1) mmol/L Chloride 106 (98-107) mmol/L Carbon Dioxide 23 (21-32) mmol/L Anion Gap 9 (3-11) BUN 21 (6-23) mg/dl Creatinine 0.78 (0.6-1.2) mg/dl Est Cr Clr Drug Dosing 57.5 ml/min Est GFR ( Amer) 80.9 ml/min Est GFR (Non-Af Amer) 69.8 ml/min BUN/Creatinine Ratio 26.9 H (10-20) Glucose 140 H (70-99(Fasting)) mg/dl Calcium 9.7 (8.6-10.3) mg/dl Total Bilirubin 1.1 H (0.2-1.0) mg/dl AST 26 (13-39) U/L ALT 29 (7-52) U/L Alkaline Phosphatase 105 H (34-104) U/L Troponin I High Sens 33.2 H (0-14) pg/ml Total Protein 7.0 (6.0-8.3) gm/dl Albumin 4.1 (3.4-5.0) gm/dl Globulin 2.9 (2.5-4.0) gm/dl Albumin/Globulin Ratio 1.4 (0.9-2) Lipase < 3 L (11-82) U/L Imaging Data Attestation: I personally reviewed and interpreted this imaging study as follows: My Impression: 1 view of the chest x-ray was obtained in the emergency department. My interpretation is no free air or definite infiltrate, final report below. X-ray of the right hip and pelvis was obtained in the emergency department. My interpretation is subcapital right hip fracture, final report below. CT of the brain was obtained in the emergency department. My interpretation is no intracranial hemorrhage or mass effect, final report pending. X-ray of the right wrist was obtained. My interpretation is distal radius fracture, final report below. Radiologist's Impression: Chest X-Ray 10/24/23 17:40 XR chest 1V portable HISTORY: fall COMPARISON: Chest 01/22/2023. FINDINGS: No pneumothorax. No pleural effusions. The heart remains mildly enlarged. No focal lung consolidations to suggest a pneumonia. No evidence for pulmonary edema. Calcifications within the aortic knob. Chronic deformity within the right humeral neck, unchanged. There is a left-sided dual-chamber pacemaker and poststernotomy changes. IMPRESSION: No acute process. ACT 112: Negative or not required by law. Electronically signed by: Preston Schroeder M.D. 10/24/2023 6:31 PM Hip/Pelvis X-Ray 10/24/23 17:40 XR hip RT 2V w pelvis CLINICAL HISTORY: fall. Right hip pain. COMPARISON STUDY: None. FINDINGS: The bones are osteopenic. Irregularity at the right femoral head neck junction suggestive of an impacted right femoral neck fracture. No dislocation. The visualized pelvic bones are intact. Moderate osteoarthritis of the bilateral hips. IMPRESSION: Abnormal appearance 2 right femoral head/neck junction suggestive of an impacted right femoral neck fracture. ACT 112: Negative or not required by law. Electronically signed by: Preston Schroeder M.D. 10/24/2023 6:34 PM Wrist X-Ray 10/24/23 17:40 XR wrist LT min 3V routine CLINICAL HISTORY: fall. Left wrist pain. COMPARISON STUDY: None. FINDINGS: Soft tissue swelling within the left wrist. The bones are osteopenic. No acute fracture or dislocation. Internal fixation of an old, healed distal left radius fracture with a cortical plate and screws. The hardware appears intact. Degenerative changes within the left wrist. IMPRESSION: No acute fracture or dislocation within the left wrist. ACT 112: Negative or not required by law. Electronically signed by: Preston Schroeder M.D. 10/24/2023 6:30 PM Wrist X-Ray 10/24/23 17:40 XR wrist RT min 3V routine CLINICAL HISTORY: fall. Right wrist pain. COMPARISON STUDY: None. FINDINGS: Soft tissue swelling within the right wrist. The bones are osteopenic. Nondisplaced intra-articular fracture within the distal right radius. There is also nondisplaced fracture at the tip of the ulnar styloid. No dislocation. IMPRESSION: Nondisplaced distal right radius and ulnar styloid fractures. ACT 112: Negative or not required by law. Electronically signed by: Preston Schroeder M.D. 10/24/2023 6:28 PM Discharge Plan Visit Data Chief Complaint: Hip Pain Stated Complaint: FALL, FRACTURED HIP ED Provider: Carlos Alberto Martinez Discharge Problem: Subcapital fracture of right hip, Closed Colles' fracture of right radius, Contusion of left wrist, Head injury, Contusion of face, Fall Patient Disposition: Being Evaluated by Hospitalist Forms Stand Alone Forms: [facility] Prescriptions Prescriptions: No Action aspirin 81 mg Tablet,Delayed Release (Dr/Ec) 81 mg PO QPM isosorbide mononitrate 60 mg Tablet Extended Release 24 Hr 120 mg PO QAM levothyroxine 50 mcg Tablet 50 mcg PO DAILYBB nitroglycerin 0.4 mg Tablet, Sublingual 1 tab Sublingual UD PRN (Reason: Chest Pain) omeprazole 20 mg capsule,delayed release(DR/EC) 20 mg PO DAILY PRN (Reason: Acid Reflux) alprazolam [Xanax] 0.25 mg tablet 0.25 mg PO TID PRN (Reason: Anxiety) dicyclomine 10 mg Capsule 10 mg PO QID PRN (Reason: Indigestion) cholecalciferol (vitamin D3) [Vitamin D3] 50 mcg (2,000 unit) tablet 2,000 unit PO QAM acetaminophen [Tylenol Extra Strength] 500 mg Tablet 1,000 mg PO Q6H PRN (Reason: knee pain) calcium carbonate [Calcium 600] 600 mg calcium (1,500 mg) Tablet 600 mg PO DAILY sertraline 100 mg tablet 100 mg PO DAILY amlodipine 5 mg tablet 5 mg PO DAILY cholestyramine (with sugar) 4 gram powder in packet 1 ea PO Q OTHER DAY famotidine 20 mg Tablet 20 mg PO BID PRN (Reason: Dyspepsia) warfarin 2 mg tablet 2 mg PO PM Qty: 30 0RF metoprolol succinate 50 mg Tablet Extended Release 24 Hr 50 mg PO BID Qty: 60 0RF isosorbide mononitrate 60 mg tablet extended release 24 hr 60 mg PO QPM Referrals Referrals: Shonda Chakraborty MD [Primary Care Provider] - Discharge Problem: Subcapital fracture of right hip Qualifiers: Encounter type: initial encounter Fracture type: closed Qualified Code(s): S 72.011A - Unspecified intracapsular fracture of right femur, initial encounter for closed fracture Closed Colles' fracture of right radius Qualifiers: Encounter type: initial encounter Qualified Code(s): S52.531A - Colles' fracture of right radius, initial encounter for closed fracture Contusion of left wrist Qualifiers: Encounter type: initial encounter Qualified Code(s): S60.212A - Contusion of left wrist, initial encounter Head injury Qualifiers: Encounter type: initial encounter Qualified Code(s): S09.90XA - Unspecified injury of head, initial encounter Contusion of face Qualifiers: Encounter type: initial encounter Qualified Code(s): S00.83XA - Contusion of other part of head, initial encounter Fall Qualifiers: Encounter type: initial encounter Qualified Code(s): W19.XXXA - Unspecified fall, initial encounter
[2023-10-24 18:15] LABS: Basophils # (auto) 0.04 K/uL (0.00-0.20); Basophils % (auto) 0.4 %; Eosinophils # (auto) 0.12 K/uL (0.00-0.50); Eosinophils % (auto) 1.3 %; Hematocrit (blood only) 42.6 % (37.0-47.0); Immature Granulocytes # (auto) 0.04 K/uL (0.01-0.20); Immature Granulocytes % (auto) 0.4 %; Lymphocytes # (auto) 1.04 K/uL (1.20-3.40); Lymphocytes % (auto) 11.4 %; Mean Corpuscular Hemoglobin 28.7 pg (25.0-34.0); Mean Corpuscular Hgb Conc 32.9 g/dL (32.0-36.0); Mean Corpuscular Volume 87.5 fL (80.0-100.0); Mean Platelet Volume 11.7 fL (9.4-12.4); Monocytes % (auto) 4.4 %; Neutrophils # (auto) 7.45 K/uL (1.40-6.50); Neutrophils % (auto) 82.1 %; Platelet Count 158 K/uL (130-400); RDW Coefficient of Variation 13.8 % (11.5-14.5); RDW Standard Deviation 44.2 fL (36.4-46.3); Red Blood Count 4.87 M/uL (4.20-5.40); White Blood Count 9.09 K/ul (4.8-10.8)
--- NOTE | 2023-10-24 18:29 | XRay Report ---
XR wrist RT min 3V routine CLINICAL HISTORY: fall. Right wrist pain. COMPARISON STUDY: None. FINDINGS: Soft tissue swelling within the right wrist. The bones are osteopenic. Nondisplaced intra-a rticular fracture within the distal right radius. There is also nondisplaced fracture at the tip of t he ulnar styloid. No dislocation. IMPRESSION: Nondisplaced distal right radius and ulnar styloid fractures. ACT 112: Negative or not required by law. Electronically signed by: Preston Schroeder M.D. 10/24/2023 6:28 PM
[2023-10-24 18:32] LABS: Anion Gap 9 (3-11); BUN Creatinine Ratio 26.9 (10-20); Blood Urea Nitrogen 21 mg/dl (6-23); Calcium 9.7 mg/dl (8.6-10.3); Carbon Dioxide 23 mmol/L (21-32); Chloride 106 mmol/L (98-107); Creatinine Clr Calc Pharmacy 57.5 ml/min; Est GFR (African American) 80.9 ml/min; Est GFR (Non-African American) 69.8 ml/min; Glucose 140 mg/dl (70-99(Fasting)); Potassium 3.8 mmol/L (3.5-5.1); Sodium 138 mmol/L (136-145)
--- NOTE | 2023-10-24 18:32 | XRay Report ---
XR wrist LT min 3V routine CLINICAL HISTORY: fall. Left wrist pain. COMPARISON STUDY: None. FINDINGS: Soft tissue swelling within the left wrist. The bones are osteopenic. No acute fracture or dislocation. Internal fixation of an old, healed distal left radius fracture with a cortical plate an d screws. The hardware appears intact. Degenerative changes within the left wrist. IMPRESSION: No acute fracture or dislocation within the left wrist. ACT 112: Negative or not required by law. Electronically signed by: Preston Schroeder M.D. 10/24/2023 6:30 PM
[2023-10-24 18:33] LABS: Alanine Aminotransferase 29 U/L (7-52); Albumin Globulin Ratio 1.4 (0.9-2); Albumin Level 4.1 gm/dl (3.4-5.0); Alkaline Phosphatase 105 U/L (34-104); Aspartate Aminotransferase 26 U/L (13-39); Bilirubin,Total 1.1 mg/dl (0.2-1.0); Globulin 2.9 gm/dl (2.5-4.0)
--- NOTE | 2023-10-24 18:33 | XRay Report ---
XR chest 1V portable HISTORY: fall COMPARISON: Chest 01/22/2023. FINDINGS: No pneumothorax. No pleural effusions. The heart remains mildly enlarged. No focal lung con solidations to suggest a pneumonia. No evidence for pulmonary edema. Calcifications within the aortic knob. Chronic deformity within the right humeral neck, unchanged. There is a left-sided dual-chamber pacemaker and poststernotomy changes. IMPRESSION: No acute process. ACT 112: Negative or not required by law. Electronically signed by: Preston Schroeder M.D. 10/24/2023 6:31 PM
--- NOTE | 2023-10-24 18:36 | XRay Report ---
XR hip RT 2V w pelvis CLINICAL HISTORY: fall. Right hip pain. COMPARISON STUDY: None. FINDINGS: The bones are osteopenic. Irregularity at the right femoral head neck junction suggestive o f an impacted right femoral neck fracture. No dislocation. The visualized pelvic bones are intact. Mo derate osteoarthritis of the bilateral hips. IMPRESSION: Abnormal appearance 2 right femoral head/neck junction suggestive of an impacted right f emoral neck fracture. ACT 112: Negative or not required by law. Electronically signed by: Preston Schroeder M.D. 10/24/2023 6:34 PM
[2023-10-24 18:38] LABS: Troponin I High Sensitivity 33.2 pg/ml (0-14)
[2023-10-24 18:51] LABS: INR 1.2 (0.9-1.1); Partial Thromboplastin Ratio 1.1; Partial Thromboplastin Time 30 Seconds (21-31); Prothrombin Time 12.6 Seconds (9.0-12.0)
[2023-10-24 18:55] LABS: Lipase < 3 U/L (11-82)
--- NOTE | 2023-10-24 19:19 | CT Scan Report ---
Exam(s): CT C SPINE EXAM: CT Cervical Spine Without Intravenous Contrast CLINICAL HISTORY: Fall TECHNIQUE: Axial computed tomography images of the cervical spine without intravenous contrast. CTDI is 22.84 mGy and DLP is 465.59 mGy-cm. Automated exposure control was utilized for the study. A dose lowering technique was utilized adhering to the principles of ALARA. COMPARISON: No relevant prior studies available. FINDINGS: Vertebrae: Unremarkable. No fracture or malalignment. Discs/spinal canal/neural foramina: There are degenerative changes of the spine. No spinal canal stenosis. Soft tissues: Unremarkable. No prevertebral soft tissue swelling. Lung apices: Interseptal thickening is concerning for pulmonary edema. IMPRESSION: 1. Interseptal thickening is concerning for pulmonary edema. 2. No acute finding of the cervical spine. Electronically signed by: Adelaida Johnson MD 10/24/23 19:18 PM
--- NOTE | 2023-10-24 19:19 | CT Scan Report ---
Exam(s): CT HEAD Without Contrast EXAM: CT Head Without Intravenous Contrast CLINICAL HISTORY: Fall. TECHNIQUE: Axial computed tomography images of the head/brain without intravenous contrast. CTDI is 36.18 mGy and DLP is 624.41 mGy-cm. Automated exposure control was utilized for the study. A dose lowering technique was utilized adhering to the principles of ALARA. COMPARISON: CT head 05/01/2019. FINDINGS: Brain: No intracranial hemorrhage, mass-effect or midline shift. No abnormal extra axial fluid. No evidence of acute infarct. Mild periventricular white matter hypodensities are most consistent with chronic microangiopathy. Ventricles: Unremarkable. No ventriculomegaly. Bones/joints: Unremarkable. No acute fracture. Soft tissues: A small right frontal scalp hematoma. Sinuses: There is mild mucosal thickening of the ethmoid and maxillary sinuses. The remaining visualized paranasal sinuses are clear. Mastoid air cells: Unremarkable as visualized. No mastoid effusion. IMPRESSION: 1. No acute intracranial finding. 2. Small right frontal scalp hematoma. Electronically signed by: Adelaida Johnson MD 10/24/23 19:17 PM
[2023-10-24] MEDS: fentaNYL citrate PF 100 MCG/2 ML VIAL IV PRN (19:37)
--- NOTE | 2023-10-24 20:29 | History & Physical Report ---
Date of Service October 24, 2023 Assessment & Plan (1) Fall: Plan: 83-year-old female with past medical history significant for primary hyperparathyroidism, history of adrenal insufficiency, history of adenocarcinoma pancreas status post Whipple's procedure, hypothyroidism, hyperlipidemia, pancreatic cyst, history of pancreatitis, history of sinus node dysfunction status post pacemaker, history of CAD s/p cardiac stenting ,status post CABG, abdominal aortic ectasia, right subclavian artery stenosis, hypertension, paroxysmal atrial fibrillation, bilateral non symptomatic carotid stenosis, GERD, esophageal spasm, CKD stage III, osteoporosis, history of DVT and history of PE, statin intolerance, adjustment disorder who lives at home with her presents with fall and found to have right hip fracture. Patient states that she took her dog and went outside and she was trimming her bushes when she fell on the right side ,hit her head but no loss of consciousness and the wrist was hurting a lot and she could not get up. She called neighbors for help. Neighbors helped her to get in the chair. Then she called her son. They went to [facility] but it was late and the hospital was closed. Today she went to PCP office and was sent to ER. Says since fall having difficulty to get up and ambulate. A lot of pain in the wrist. Denies any fevers. Earlier had headache but that resolved now. No blurred visions. No cough. Eating and drinking okay. No chest pain or shortness of breath. No nausea. No abdominal pain. Says sometimes she has bowel incontinence. Micturating okay. Currently resting comfortably and hemodynamically stable. Stairs prior to fall she was able to ambulate in the house okay though she couldn't ambulate long distances. Fall Mechanical fall Nondisplaced distal right radius and ulnar styloid fractures Impacted right femoral neck fracture Pain controlled N.p.o. from midnight Gentle fluids Consult orthopedics in a.m. for further recommendations Mild elevation of troponin Denies any chest pains History of CAD status post stent and CABG Will follow serial enzymes and echo Consult cardiology in a.m. for preop History of CAD status post stenting status post CABG Continue aspirin Imdur, metoprolol succinate History of DVT and PE Patient says blood clot was more than 2 years ago We will hold Eliquis for now and restart as soon as possible History of A-fib Rate controlled with metoprolol succinate Holding Eliquis for now Sick sinus syndrome Status post pacemaker History of adenocarcinoma pancreas Status post Whipple's procedure Patient seems declined chemotherapy Follows with hematology oncology Hypertension On amlodipine and metoprolol succinate Will monitor Adjustment disorder On Zoloft DVT prophylaxis Holding Eliquis for any plan for procedures Anticoagulation per orthopedics if procedure planned. Disposition Med/telemetry Full code History of Present Illness Chief Complaint: Status post fall and right femoral neck fracture Primary Care Provider: Shonda Chakraborty MD 83-year-old female with past medical history significant for primary hyperparathyroidism, history of adrenal insufficiency, history of adenocarcinoma pancreas status post Whipple's procedure, hypothyroidism, hyperlipidemia, pancreatic cyst, history of pancreatitis, history of sinus node dysfunction status post pacemaker, history of CAD s/p cardiac stenting ,status post CABG, abdominal aortic ectasia, right subclavian artery stenosis, hypertension, paroxysmal atrial fibrillation, bilateral non symptomatic carotid stenosis, GERD, esophageal spasm, CKD stage III, osteoporosis, history of DVT and history of PE, statin intolerance, adjustment disorder who lives at home with her presents with fall and found to have right hip fracture. Patient states that she took her dog and went outside and she was trimming her bushes when she fell on the right side ,hit her head but no loss of consciousness and the wrist was hurting a lot and she could not get up. She called neighbors for help. Neighbors helped her to get in the chair. Then she called her son. They went to [facility] but it was late and the hospital was closed. Today she went to PCP office and was sent to ER. Says since fall having difficulty to get up and ambulate. A lot of pain in the wrist. Denies any fevers. Earlier had headache but that resolved now. No blurred visions. No cough. Eating and drinking okay. No chest pain or shortness of breath. No nausea. No abdominal pain. Says sometimes she has bowel incontinence. Micturating okay. Currently resting comfortably and hemodynamically stable. Stairs prior to fall she was able to ambulate in the house okay though she couldn't ambulate long distances. Past medical history. As mentioned above.Past surgical history. Past surgical history. left breast core biopsy. CABG. EGD. EGD with endoscopic ultrasound. Eyelid surgery. Knee arthroscopy. Laparoscopic cholecystectomy. Hemorrhoidectomy. Partial removal of pancreas. Appendectomy. Bilateral cataracts. Tonsillectomy are not known. Shoulder arthroscopy. Total hysterectomy. Social history. . No smoking. No alcohol use. No drug use. Family history. Mother had seizures. Stroke. Allergies Allergy/AdvReac Type Severity Reaction Status Date / Time Iodinated Contrast Media Allergy Severe Hives, Verified 10/24/23 19:46 anaphylaxis ether Allergy Unknown Unknown Verified 10/24/23 19:46 prednisone AdvReac Severe GI pain > Verified 10/24/23 19:46 pancreatitis rosiglitazone AdvReac Severe Blood clots Verified 10/24/23 19:46 atorvastatin [From Lipitor] AdvReac Intermediate Muscle Pain Verified 10/24/23 19:46 ezetimibe [From Zetia] AdvReac Intermediate Muscle Pain Verified 10/24/23 19:46 lisinopril AdvReac Intermediate Cough Verified 10/24/23 19:46 losartan AdvReac Intermediate N/V Verified 10/24/23 19:46 ranitidine AdvReac Intermediate N/V, Verified 10/24/23 19:46 achiness rosuvastatin [From Crestor] AdvReac Intermediate Muscle Pain Verified 10/24/23 19:46 Home Medications Medication Instructions Recorded Confirmed Type aspirin 81 mg tablet,delayed 81 mg PO QPM 03/19/18 10/24/23 History release levothyroxine 50 mcg tablet 50 mcg PO DAILYBB 03/19/18 10/24/23 History nitroglycerin 0.4 mg sublingual 1 tab sublingual UD PRN Chest Pain 03/19/18 10/24/23 History tablet alprazolam 0.25 mg tablet (Xanax) 0.25 mg PO TID PRN Anxiety/INSOMNIA 06/18/20 10/24/23 History cholecalciferol (vitamin D3) 50 2,000 unit PO QAM 06/18/20 10/24/23 History mcg (2,000 unit) tablet (Vitamin D3) dicyclomine 10 mg capsule 10 mg PO QID PRN Indigestion 06/18/20 10/24/23 History acetaminophen 500 mg tablet 1,000 mg PO Q8H PRN knee pain 02/24/21 10/24/23 History (Tylenol Extra Strength) amlodipine 5 mg tablet 5 mg PO DAILY 12/21/22 10/24/23 History cholestyramine (with sugar) 4 gram 1 ea PO Q OTHER DAY 12/21/22 10/24/23 History powder for susp in a packet sertraline 100 mg tablet 100 mg PO DAILY 12/21/22 10/24/23 History isosorbide mononitrate 60 mg 60 mg PO BID 01/22/23 10/24/23 History tablet,extended release 24 hr apixaban 5 mg tablet (Eliquis) 5 mg PO BID 10/24/23 10/24/23 History diclofenac sodium 1 % topical gel 2 g topical QID PRN Pain 10/24/23 10/24/23 History [id number] 3 cap PO TIDM 10/24/23 10/24/23 History 3,000-9,500-15,000 unit capsule, delayed rel (Creon) metoprolol succinate 50 mg 75 mg PO BID 10/24/23 10/24/23 History tablet,extended release 24 hr simethicone 80 mg chewable tablet 80 - 160 mg PO QID PRN 10/24/23 10/24/23 History BLOATING/GAS DISCOMFORT Past Med/Surg History Medical History Abdominal pain Carotid artery stenosis LICA/FITZ <50% stenosis, Right subclavian stenosis vs. occlusion with abnormal flow noted in vertebral artery per 08/2019 carotid duplex Chronic back pain Osteoarthritis Paroxysmal atrial fibrillation Pacemaker 08/03 SSS, last pacer check 01/2020 IPMN (intraductal papillary mucinous neoplasm) HTN (hypertension) Dyslipidemia Pulmonary embolism remote years ago DVT (deep venous thrombosis) GERD (gastroesophageal reflux disease) Hypothyroidism CAD (coronary artery disease) CABG x5 in 2005 in [place] with BROWN to LAD, SVG to diagonal, SVG to OM, SVG to RPDA, and SVG to the distal RCA, PCI x3 Surgical History Pacemaker placement H/O parathyroidectomy H/O arthroscopy of shoulder H/O arthroscopy of knee Hx of hemorrhoidectomy S/P BSO (bilateral salpingo-oophorectomy) History of hysterectomy Hx of cholecystectomy S/P CABG x 3 CABG x5 in 2005 in [place] with BROWN to LAD, SVG to diagonal, SVG to OM, SVG to RPDA, and SVG to the distal RCA Hx of appendectomy Hx of adenoidectomy Hx of tonsillectomy Hx of cataract surgery Family History Mother Stroke Social History Smoking Status: Never smoker Second Hand Exposure: No; Do You Dip or Chew Tobacco: No; Hx Alcohol Use: No Hx Substance Use: No Preferred Language: Serbian Communication Ability: Effective Draw String Knotter Required: No Beliefs That Will Affect Care: None marital status: Current Living Situation: Spouse Current Living Situation Comment: Daughter LIVES WITH PT Other Information That Helps Us Care for You: No Feels Safe at Home: Yes Safety Concerns: Feels Safe At This Time Assistive Devices: None Review of Systems Review of Systems: All systems reviewed & are unremarkable except as noted in HPI & below Physical Exam Physical Exam: General- Not in distress Head- atraumatic Eyes- PERRL. ENT- oropharynx clear Neck- supple, no JVD. Lungs- clear to auscultation no wheezing or crackles. Heart- regular rhythm; no murmur, no gallop. Abdomen- normal bowel sounds, soft, nontender, no distension. Extremities- no pretibial edema, no erythema seen.Right lower extremity slightly shortened. Neuro- alert, oriented x 3; PERRL, no facial palsy; no dysarthria; obeys simple commands Results & Data Results & Data Vital Signs (Past 12 Hours) Vital Signs Temp Pulse Resp BP Pulse Ox O2 Del Method O2 Flow Rate 10/24/23 17:49 95 Nasal Cannula 2 10/24/23 17:49 37.1 C 82 18 194/108 H 95 Nasal Cannula 2 Diagnostic Findings Laboratory Results WBC 9.09 K/ul (4.8-10.8) 10/24/23 17:48 RBC 4.87 M/uL (4.20-5.40) 10/24/23 17:48 Hgb 14.0 g/dl (12.0-16.0) 10/24/23 17:48 Hct 42.6 % (37.0-47.0) 10/24/23 17:48 MCV 87.5 fL (80.0-100.0) 10/24/23 17:48 MCH 28.7 pg (25.0-34.0) 10/24/23 17:48 MCHC 32.9 g/dL (32.0-36.0) 10/24/23 17:48 RDW Std Deviation 44.2 fL (36.4-46.3) 10/24/23 17:48 RDW Coeff of Chelo 13.8 % (11.5-14.5) 10/24/23 17:48 Plt Count 158 K/uL (130-400) 10/24/23 17:48 MPV 11.7 fL (9.4-12.4) 10/24/23 17:48 Immature Gran % (Auto) 0.4 % 10/24/23 17:48 Neut % (Auto) 82.1 % 10/24/23 17:48 Lymph % (Auto) 11.4 % 10/24/23 17:48 Peach % (Auto) 4.4 % 10/24/23 17:48 Eos % (Auto) 1.3 % 10/24/23 17:48 Baso % (Auto) 0.4 % 10/24/23 17:48 Neut # (Auto) 7.45 K/uL (1.40-6.50) H 10/24/23 17:48 Lymph # (Auto) 1.04 K/uL (1.20-3.40) L 10/24/23 17:48 Peach # (Auto) 0.40 K/uL (0.11-0.59) 10/24/23 17:48 Eos # (Auto) 0.12 K/uL (0.00-0.50) 10/24/23 17:48 Baso # (Auto) 0.04 K/uL (0.00-0.20) 10/24/23 17:48 Immature Gran # (Auto) 0.04 K/uL (0.01-0.20) 10/24/23 17:48 PT 12.6 Seconds (9.0-12.0) H 10/24/23 17:48 INR 1.2 (0.9-1.1) H 10/24/23 17:48 APTT 30 Seconds (21-31) 10/24/23 17:48 PTT Ratio 1.1 10/24/23 17:48 Sodium 138 mmol/L (136-145) 10/24/23 17:48 Potassium 3.8 mmol/L (3.5-5.1) 10/24/23 17:48 Chloride 106 mmol/L (98-107) 10/24/23 17:48 Carbon Dioxide 23 mmol/L (21-32) 10/24/23 17:48 Anion Gap 9 (3-11) 10/24/23 17:48 BUN 21 mg/dl (6-23) 10/24/23 17:48 Creatinine 0.78 mg/dl (0.6-1.2) 10/24/23 17:48 Est Cr Clr Drug Dosing 57.5 ml/min 10/24/23 17:48 Est GFR ( Amer) 80.9 ml/min 10/24/23 17:48 Est GFR (Non-Af Amer) 69.8 ml/min 10/24/23 17:48 BUN/Creatinine Ratio 26.9 (10-20) H 10/24/23 17:48 Glucose 140 mg/dl (70-99(Fasting)) H 10/24/23 17:48 Calcium 9.7 mg/dl (8.6-10.3) 10/24/23 17:48 Total Bilirubin 1.1 mg/dl (0.2-1.0) H 10/24/23 17:48 AST 26 U/L (13-39) 10/24/23 17:48 ALT 29 U/L (7-52) 10/24/23 17:48 Alkaline Phosphatase 105 U/L (34-104) H 10/24/23 17:48 Troponin I High Sens 33.2 pg/ml (0-14) H 10/24/23 17:48 Total Protein 7.0 gm/dl (6.0-8.3) 10/24/23 17:48 Albumin 4.1 gm/dl (3.4-5.0) 10/24/23 17:48 Globulin 2.9 gm/dl (2.5-4.0) 10/24/23 17:48 Albumin/Globulin Ratio 1.4 (0.9-2) 10/24/23 17:48 Lipase < 3 U/L (11-82) L 10/24/23 17:[address] 10/24/23 17:40 Exam(s): CT C SPINE EXAM: CT Cervical Spine Without Intravenous Contrast CLINICAL HISTORY: Fall TECHNIQUE: Axial computed tomography images of the cervical spine without intravenous contrast. CTDI is 22.84 mGy and DLP is 465.59 mGy-cm. Automated exposure control was utilized for the study. A dose lowering technique was utilized adhering to the principles of ALARA. COMPARISON: No relevant prior studies available. FINDINGS: Vertebrae: Unremarkable. No fracture or malalignment. Discs/spinal canal/neural foramina: There are degenerative changes of the spine. No spinal canal stenosis. Soft tissues: Unremarkable. No prevertebral soft tissue swelling. Lung apices: Interseptal thickening is concerning for pulmonary edema. IMPRESSION: 1. Interseptal thickening is concerning for pulmonary edema. 2. No acute finding of the cervical spine. Electronically signed by: Adelaida Johnson MD 10/24/23 19:18 PM Chest X-Ray 10/24/23 17:40 XR chest 1V portable HISTORY: fall COMPARISON: Chest 01/22/2023. FINDINGS: No pneumothorax. No pleural effusions. The heart remains mildly enlarged. No focal lung consolidations to suggest a pneumonia. No evidence for pulmonary edema. Calcifications within the aortic knob. Chronic deformity within the right humeral neck, unchanged. There is a left-sided dual-chamber pacemaker and poststernotomy changes. IMPRESSION: No acute process. ACT 112: Negative or not required by law. Electronically signed by: Preston Schroeder M.D. 10/24/2023 6:[address] 10/24/23 17:40 Exam(s): CT HEAD Without Contrast EXAM: CT Head Without Intravenous Contrast CLINICAL HISTORY: Fall. TECHNIQUE: Axial computed tomography images of the head/brain without intravenous contrast. CTDI is 36.18 mGy and DLP is 624.41 mGy-cm. Automated exposure control was utilized for the study. A dose lowering technique was utilized adhering to the principles of ALARA. COMPARISON: CT head 05/01/2019. FINDINGS: Brain: No intracranial hemorrhage, mass-effect or midline shift. No abnormal extra axial fluid. No evidence of acute infarct. Mild periventricular white matter hypodensities are most consistent with chronic microangiopathy. Ventricles: Unremarkable. No ventriculomegaly. Bones/joints: Unremarkable. No acute fracture. Soft tissues: A small right frontal scalp hematoma. Sinuses: There is mild mucosal thickening of the ethmoid and maxillary sinuses. The remaining visualized paranasal sinuses are clear. Mastoid air cells: Unremarkable as visualized. No mastoid effusion. IMPRESSION: 1. No acute intracranial finding. 2. Small right frontal scalp hematoma. Electronically signed by: Adelaida Johnson MD 10/24/23 19:17 PM Hip/Pelvis X-Ray 10/24/23 17:40 XR hip RT 2V w pelvis CLINICAL HISTORY: fall. Right hip pain. COMPARISON STUDY: None. FINDINGS: The bones are osteopenic. Irregularity at the right femoral head neck junction suggestive of an impacted right femoral neck fracture. No dislocation. The visualized pelvic bones are intact. Moderate osteoarthritis of the bilateral hips. IMPRESSION: Abnormal appearance 2 right femoral head/neck junction suggestive of an impacted right femoral neck fracture. ACT 112: Negative or not required by law. Electronically signed by: Preston Schroeder M.D. 10/24/2023 6:34 PM Wrist X-Ray 10/24/23 17:40 XR wrist LT min 3V routine CLINICAL HISTORY: fall. Left wrist pain. COMPARISON STUDY: None. FINDINGS: Soft tissue swelling within the left wrist. The bones are osteopenic. No acute fracture or dislocation. Internal fixation of an old, healed distal left radius fracture with a cortical plate and screws. The hardware appears intact. Degenerative changes within the left wrist. IMPRESSION: No acute fracture or dislocation within the left wrist. ACT 112: Negative or not required by law. Electronically signed by: Preston Schroeder M.D. 10/24/2023 6:30 PM ECG Additional Comments: ECG. Atrial paced rhythm with rate of 64. Nonspecific ST abnormality. Code Status & VTE Plan VTE Prophylaxis Plan VTE Prophylaxis will be ordered: Yes (1) Fall Encounter type: initial encounter Qualified Code(s): W19.XXXA - Unspecified fall, initial encounter
[2023-10-24] MEDS ORDERED: DICLOFENAC SOD 1% GEL 100 GM TUBE EXT PRN (23:27)
[2023-10-24] MEDS ORDERED: ALPRAZolam 0.25 MG TABLET PO PRN (23:27)
[2023-10-24] MEDS ORDERED: DICYCLOMINE HCL 10 MG CAP PO PRN (23:27)
[2023-10-24] MEDS ORDERED: NITROGLYCERIN SL 0.4 MG/TAB TAB SL PRN ×2 (23:27)
[2023-10-24] MEDS ORDERED: POLYETHYLENE (MIRALAX) 17 GM PACK PO PRN (23:27)
[2023-10-24] MEDS: SODIUM CHLORIDE 0.9% 1,000 ML IV SCH (23:52)
[2023-10-25] MEDS: ISOSORBIDE MONO EXTENDED REL 60 MG TABCR PO SCH (00:29)
[2023-10-25] MEDS: METOPROLOL SUCC 25MG EXT REL TAB PO SCH (00:30)
[2023-10-25] MEDS: ASPIRIN 81 MG ECTAB PO SCH (00:30)
[2023-10-25] MEDS: MoRPHine SULFATE 4 MG/ML 1 ML CARP\\VIAL IV PRN (00:36)
[2023-10-25 01:56] LABS: Appearance Urine Turbid (Clear); Bacteria Urine Automated None Seen (None Seen); Bilirubin Urine Negative (Negative); Blood Urine 2+ (Negative); Calcium Oxalate Crystals Urine Present (None Prsent); Color Urine Dark Yellow; Epithelial Cell Urine Auto 0-2 /hpf (0-2); Glucose Urine UA Negative (Negative); Ketones Urine Negative (Negative); Leukocyte Esterase Urine Negative (Negative); Nitrite Urine Negative (Negative); Protein Urine 1+ (Negative); RBC Urine Automated >20 /hpf (0-2); Specific Gravity Urine 1.026 (1.000-1.030); Urobilinogen Urine Negative (Negative); WBC Urine Automated 0-5 /hpf (0-5); pH Urine 5.5 (4.5-7.5)
[2023-10-25] MEDS: LEVOTHYROXINE SODIUM 50 MCG TABLET PO SCH (06:07)
[2023-10-25 08:06] LABS: Basophils # (auto) 0.02 K/uL (0.00-0.20); Basophils % (auto) 0.3 %; Eosinophils # (auto) 0.16 K/uL (0.00-0.50); Eosinophils % (auto) 2.6 %; Hematocrit (blood only) 35.1 % (37.0-47.0); Hemoglobin 11.4 g/dl (12.0-16.0); Immature Granulocytes # (auto) 0.03 K/uL (0.01-0.20); Immature Granulocytes % (auto) 0.5 %; Lymphocytes # (auto) 0.99 K/uL (1.20-3.40); Lymphocytes % (auto) 16.3 %; Mean Corpuscular Hemoglobin 28.9 pg (25.0-34.0); Mean Corpuscular Hgb Conc 32.5 g/dL (32.0-36.0); Mean Corpuscular Volume 88.9 fL (80.0-100.0); Monocytes # (auto) 0.56 K/uL (0.11-0.59); Monocytes % (auto) 9.2 %; Neutrophils # (auto) 4.33 K/uL (1.40-6.50); Neutrophils % (auto) 71.1 %; Platelet Count 120 K/uL (130-400); RDW Standard Deviation 45.3 fL (36.4-46.3); Red Blood Count 3.95 M/uL (4.20-5.40); White Blood Count 6.09 K/ul (4.8-10.8)
[2023-10-25 08:13] LABS: BUN Creatinine Ratio 26.9 (10-20); Creatinine Clr Calc Pharmacy 58.4 ml/min; Est GFR (African American) 80.9 ml/min; Est GFR (Non-African American) 69.8 ml/min; Magnesium 1.7 mg/dl (1.7-2.4); Potassium 3.6 mmol/L (3.5-5.1)
--- NOTE | 2023-10-25 08:17 | Cardiology Consultation ---
Date of Consultation October 25, 2023 Assessment & Plan (1) Fall: (2) Nondisplaced fracture of styloid process of right ulna: (3) Subcapital fracture of right hip: (4) Elevated troponin I level: (5) Paroxysmal atrial fibrillation: (6) Tachy-bossman syndrome: (7) CAD (coronary artery disease): (8) Preop cardiovascular exam: Plan Assessment: 83 year old female admitted with a right hip fracture and non- displaced fracture of the styloid process of right ulna after sustaining a ground level mechanical fall. Cardiology asked to see this patient for mild elavation in troponins and for preoperative cardiac risk assessment. Plan: 1. Fall 2. Nondisplaced fracture of the styloid process of right ulna 3. Subcapital fracture of right hip -Ground level mechanical fall when patient lost her balance while prunning a maldonado. -laid on the ground for less than one hour attempting to summon for help from the neighbors. -Subsequent imaging demonstrates fracture of the right hip which will need to undergo surgical intervention, seen by ortho today with plan for surgery kalyani valdez. -Right wrist fracture, immobilized and non-weight baring for a minimum of 6-8 weeks per review of ortho documentation. 4. Elevated Troponin 5. History of CAD -EKG at time of admission shows no acute ST-T wave changes. -Patient denies any chest pain, or anginal equivelent prior to, during or after the fall. -Mild elevation in troponin likely demand ischemia s/t to fall with time on g round and injury. Obtain echocardiogram to assess overall structure and function, assess for any wall motion abnormality. -Continue Imdur, Toprol xl, Amlodipine, ASA 81mg as per current regimen. 6. Paroxysmal Atrial fibrillation 7. History of tachy-bossman syndrome s/p PPM -EKG demonstrates Atrial paced with underlying sinus rhythm, review of telemetry demonstrates the same. No acute events overnight. -Most recent device interrogation 08/12/23 demonstrates normal function, with a 0.3% AT/AF burden with longest episode 1.5 minutes. -Device: [employer] [place] XT DR BATEMAN -Continue Toprol xl 75mg BID 8. Preoperative cardiac risk assessment: -patient is doing well from a cardiac standpoint. There is no suggestion of cardiac causes that precipitated her fall as it was mechanical in nature. -VS stable -EKG and Telemetry reviewed. -History of prior stress test as noted 12/2022 negative for inducible ischemia. -Most recent echo demonstrates normal LVEF -Per Gal Criteria, patient is placed at moderate risk for surgical intervention due to her cardiac history. She is optimized from a cardiac standpoint and no other testing or intervention would further lower or reduce that risk. -the incidence of mortality with an untreated hip fracture outweighs the risk and patient needs to have surgical repair. -patient is ok to proceed with surgical intervention as scheduled. -Recommend close monitoring on telemetry postoperatively. -Would continue current cardiac medications as noted above. -Cautious with intraoperative and post operative fluid resuscitation to avoid overload. Case has been discussed with Dr. Stephens. Further recommendations regarding plan of care as per his assessment. I spent a total of 40 minutes on the date of service in preparation, delivery, documentation of the care provided to the patient excluding any time spent in the performance of separately billed services. SAHIL De La Vega [facility] Cardiology [facility] Supervising Physician Co-Signing Physician Notes Attending attestation: Case reviewed with the advanced practitioner. I have personally performed a history and physical examination on the patient. I have reviewed the advanced practitioner's documentation on the date of service referenced in note, and I agree with, and take responsibility for the plan of care. Patient with longstanding history of chronic stable angina, no recent anginal symptoms. Mild troponin elevation likely due to myocardial strain in the setting of acute noncardiac illness. EKG reveals stable findings. Echocardiogram with stable findings. Patient tolerated anesthesia for Whipple procedure in 2022 without cardiac issues. Patient stable from cardiac perspective to proceed with surgical intervention of her right hip fracture with an estimated moderate risk of perioperative cardiac and noncardiac complication given her age and generalized frailty. She is well optimized from a cardiac perspective. Patient has a [employer] dual-chamber permanent pacemaker. Standard perioperative approach with regards to electrocautery recommended. Eliquis on hold for surgery. Patient in sinus rhythm on telemetry. I spent a total of 20 minutes coordinating, documenting, and providing care for this patient excluding time spent in the performance of separately billed services or time spent by another provider. 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 Patient reports that she had been feeling her usual state of health and took the dog out to go to the bathroom. while she was waiting on the dog, she decided to trim a maldonado near the porch when she lost her balance, falling onto her right side. Patient did strike her forehead during the fall, but denies any loss of consciousness. She had attempted to get herself up, but was having intense pain of her right wrist in addition to her right leg and could not apply pressure to stand. She reports that she had laid on the ground for a little while (states less than an hour) and saw a neighbor child out next door, yelled for him to get an adult. within moments, 2 neighbors had assisted the women to her feet and into a chair. patient does live with her spouse; however, he has progressing dementia and she is his primary caregiver. Patient is resting comfortably in bed at this time. She does endorse right wrist and hip pain. Plan is OR tomorrow for surgical intervention of the right femoral neck fracture. EKG on admission demonstrates A-paced. Rate 60bpm. Review of telemetry shows paced 60-70's. underlying SR. Troponin with mild elevation 33.2/37.9/24.8. patient remains chest pain free, no shortness of breath, pressure or palpitations. Allergies Allergy/AdvReac Type Severity Reaction Status Date / Time Iodinated Contrast Media Allergy Severe Hives, Verified 10/24/23 19:46 anaphylaxis ether Allergy Unknown Unknown Verified 10/24/23 19:46 prednisone AdvReac Severe GI pain > Verified 10/24/23 19:46 pancreatitis rosiglitazone AdvReac Severe Blood clots Verified 10/24/23 19:46 atorvastatin [From Lipitor] AdvReac Intermediate Muscle Pain Verified 10/24/23 19:46 ezetimibe [From Zetia] AdvReac Intermediate Muscle Pain Verified 10/24/23 19:46 lisinopril AdvReac Intermediate Cough Verified 10/24/23 19:46 losartan AdvReac Intermediate N/V Verified 10/24/23 19:46 ranitidine AdvReac Intermediate N/V, Verified 10/24/23 19:46 achiness rosuvastatin [From Crestor] AdvReac Intermediate Muscle Pain Verified 10/24/23 19:46 Home Medications Medication Instructions Recorded Confirmed Type aspirin 81 mg tablet,delayed 81 mg PO QPM 03/19/18 10/24/23 History release levothyroxine 50 mcg tablet 50 mcg PO DAILYBB 03/19/18 10/24/23 History nitroglycerin 0.4 mg sublingual 1 tab sublingual UD PRN Chest Pain 03/19/18 10/24/23 History tablet alprazolam 0.25 mg tablet (Xanax) 0.25 mg PO TID PRN Anxiety/INSOMNIA 06/18/20 10/24/23 History cholecalciferol (vitamin D3) 50 2,000 unit PO QAM 06/18/20 10/24/23 History mcg (2,000 unit) tablet (Vitamin D3) dicyclomine 10 mg capsule 10 mg PO QID PRN Indigestion 06/18/20 10/24/23 History acetaminophen 500 mg tablet 1,000 mg PO Q8H PRN knee pain 02/24/21 10/24/23 History (Tylenol Extra Strength) amlodipine 5 mg tablet 5 mg PO DAILY 12/21/22 10/24/23 History cholestyramine (with sugar) 4 gram 1 ea PO Q OTHER DAY 12/21/22 10/24/23 History powder for susp in a packet sertraline 100 mg tablet 100 mg PO DAILY 12/21/22 10/24/23 History isosorbide mononitrate 60 mg 60 mg PO BID 01/22/23 10/24/23 History tablet,extended release 24 hr apixaban 5 mg tablet (Eliquis) 5 mg PO BID 10/24/23 10/24/23 History diclofenac sodium 1 % topical gel 2 g topical QID PRN Pain 10/24/23 10/24/23 History [id number] 3 cap PO TIDM 10/24/23 10/24/23 History 3,000-9,500-15,000 unit capsule, delayed rel (Creon) metoprolol succinate 50 mg 75 mg PO BID 10/24/23 10/24/23 History tablet,extended release 24 hr simethicone 80 mg chewable tablet 80 - 160 mg PO QID PRN 10/24/23 10/24/23 History BLOATING/GAS DISCOMFORT Patient History Medical History (Updated 10/25/23 @ 12:20 by SAHIL De La Vega) Paroxysmal atrial fibrillation Abdominal pain Carotid artery stenosis LICA/FITZ <50% stenosis, Right subclavian stenosis vs. occlusion with abnormal flow noted in vertebral artery per 08/2019 carotid duplex Chronic back pain Osteoarthritis Pacemaker 08/03 SSS, last pacer check 01/2020 IPMN (intraductal papillary mucinous neoplasm) HTN (hypertension) Dyslipidemia Pulmonary embolism remote years ago DVT (deep venous thrombosis) GERD (gastroesophageal reflux disease) Hypothyroidism CAD (coronary artery disease) CABG x5 in 2005 in [place] with BROWN to LAD, SVG to diagonal, SVG to OM, SVG to RPDA, and SVG to the distal RCA, PCI x3 Surgical History Pacemaker placement H/O parathyroidectomy H/O arthroscopy of shoulder H/O arthroscopy of knee Hx of hemorrhoidectomy S/P BSO (bilateral salpingo-oophorectomy) History of hysterectomy Hx of cholecystectomy S/P CABG x 3 CABG x5 in 2005 in [place] with BROWN to LAD, SVG to diagonal, SVG to OM, SVG to RPDA, and SVG to the distal RCA Hx of appendectomy Hx of adenoidectomy Hx of tonsillectomy Hx of cataract surgery Family History Mother Stroke Social History Smoking Status: Never smoker Second Hand Exposure: No; Do You Dip or Chew Tobacco: No; Hx Alcohol Use: No Hx Substance Use: No Preferred Language: Citizen Of [place] Communication Ability: Effective Circulation Manager Required: No Beliefs That Will Affect Care: None marital status: Current Living Situation: Spouse Current Living Situation Comment: Daughter LIVES WITH PT Other Information That Helps Us Care for You: No Feels Safe at Home: Yes Safety Concerns: Feels Safe At This Time Assistive Devices: None Review of Systems Review of Systems: All systems reviewed & are unremarkable except as noted in HPI & below Physical Exam Constitutional: well developed and well nourished; no acute distress Neck: normal visual inspection and trachea midline Respiratory: normal respiratory effort, lungs clear to auscultation Cardiovascular: Rate/Rhythm: regular rate and regular rhythm Heart Sounds: normal S1, normal S2 and + murmur (+1/6 systolic ) Vessels: no JVD Extremities: no edema Musculoskeletal: Right wrist immobilizer splint Skin: no rashes, warm and dry small area of ecchymosis to right forehead Psychiatric: A+Ox3, euthymic affect Results & Data Vital Signs (Past 12 Hours) Vital Signs Temp Pulse Pulse Resp BP BP BP 10/25/23 07:55 36.3 C L 60 17 135/72 10/25/23 03:41 36.4 C L 59 L 16 129/70 10/24/23 23:37 62 10/24/23 23:21 10/24/23 23:21 36.5 C 66 18 172/82 H 10/24/23 23:03 10/24/23 21:36 60 10/24/23 21:30 168/90 H 10/24/23 21:30 60 21 10/24/23 21:20 60 15 10/24/23 21:10 66 15 10/24/23 21:00 167/95 H 10/24/23 21:00 60 13 10/24/23 20:50 70 18 10/24/23 20:40 65 16 10/24/23 20:30 61 16 10/24/23 20:30 139/80 10/24/23 20:20 72 16 Pulse Ox O2 Del Method O2 Flow Rate 10/25/23 07:55 96 Nasal Cannula 2 10/25/23 03:41 96 Nasal Cannula 2 10/24/23 23:37 10/24/23 23:21 Nasal Cannula 10/24/23 23:21 95 Nasal Cannula 2 10/24/23 23:03 Nasal Cannula 2 10/24/23 21:36 10/24/23 21:30 10/24/23 21:30 10/24/23 21:20 10/24/23 21:10 10/24/23 21:00 10/24/23 21:00 10/24/23 20:50 10/24/23 20:40 10/24/23 20:30 10/24/23 20:30 10/24/23 20:20 Laboratory Results Cardiac Enzymes 10/24/23 10/24/23 Range/Units 17:48 20:49 AST 26 (13-39) U/L Troponin I High Sens 33.2 H 37.9 H (0-14) pg/ml Coagulation 10/24/23 Range/Units 17:48 PT 12.6 H (9.0-12.0) Seconds APTT 30 (21-31) Seconds CBC 10/24/23 10/25/23 Range/Units 17:48 06:41 WBC 9.09 6.09 (4.8-10.8) K/ul RBC 4.87 3.95 L (4.20-5.40) M/uL Hgb 14.0 11.4 L (12.0-16.0) g/dl Hct 42.6 35.1 L (37.0-47.0) % Plt Count 158 120 L (130-400) K/uL Neut # (Auto) 7.45 H 4.33 (1.40-6.50) K/uL Lymph # (Auto) 1.04 L 0.99 L (1.20-3.40) K/uL M[place]racken # (Auto) 0.40 0.56 (0.11-0.59) K/uL Eos # (Auto) 0.12 0.16 (0.00-0.50) K/uL Baso # (Auto) 0.04 0.02 (0.00-0.20) K/uL Comprehensive Metabolic Panel 10/24/23 10/25/23 Range/Units 17:48 06:41 Sodium 138 139 (136-145) mmol/L Potassium 3.8 3.6 (3.5-5.1) mmol/L Chloride 106 108 H (98-107) mmol/L Carbon Dioxide 23 25 (21-32) mmol/L BUN 21 21 (6-23) mg/dl Creatinine 0.78 0.78 (0.6-1.2) mg/dl Glucose 140 H 118 H (70-99(Fasting)) mg/dl Calcium 9.7 9.0 (8.6-10.3) mg/dl AST 26 (13-39) U/L ALT 29 (7-52) U/L Alkaline Phosphatase 105 H (34-104) U/L Total Protein 7.0 (6.0-8.3) gm/dl Albumin 4.1 (3.4-5.0) gm/dl Intake and Output 10/24/23 10/25/23 10/25/23 22:59 06:59 14:59 Output Total 200 / 200 Balance -200 / -200 Output: Urine Amount (Catheter) 200 / 200 Cano/Indwelling 200 / 200 Other: Weight 77.2 kg 79.8 kg Weight Measurement Method Stated by Patient Built in Bedscale Diagnostic Findings Summary of Lexiscan nuclear stress test performed 01/26/2023: The pharmacologic myocardial perfusion imaging study reveals a large sized fixed apical, inferior, and inferolateral perfusion defect consistent with scar in this territory without inducible ischemia. Gated SPECT images reveal inferior hypokinesis. The calculated left ventricular ejection fraction= 48% by gated SPECT technique (mildly reduced). Epigastric tightness noted with pharmacologic stress that resolved and the post- rest recovery interval. The stress EKG response is nondiagnostic due to the presence of the underlying paced rhythm. Summary of echocardiogram performed 12/30/2022, [facility] Moderate left ventricular hypertrophy noted in the segments with normal wall motion There is a moderate sized inferior and inferolateral wall motion abnormality with thinning and hypokinesis to akinesis of the segments Low normal LVEF at 50-55% Moderate left atrial enlargement Moderate mitral regurgitation Mild tricuspid regurgitation Doppler findings do not suggest pulmonary hypertension No pericardial effusion (1) Fall Encounter type: initial encounter Qualified Code(s): W19.XXXA - Unspecified fall, initial encounter (2) Nondisplaced fracture of styloid process of right ulna Encounter type: initial encounter Fracture type: closed Qualified Code(s): S52.614A - Nondisplaced fracture of right ulna styloid process, initial encounter for closed fracture (3) Subcapital fracture of right hip Encounter type: initial encounter Fracture type: closed Qualified Code(s): S72.011A - Unspecified intracapsular fracture of right femur, initial encounter for closed fracture (7) CAD (coronary artery disease) Associated angina: with unspecified angina Coronary Disease-Associated Artery/Lesion type: unspecified vessel or lesion type [place] vs. transplanted heart: [place] heart Qualified Code(s): I25.119 - Atherosclerotic heart disease of [place] coronary artery with unspecified angina pectoris
[2023-10-25 08:20] LABS: Troponin I High Sensitivity 30.3 pg/ml (0-14)
[2023-10-25] MEDS: CHOLECALCIFEROL 25 MCG (1000 UNITS) TAB PO SCH (08:21)
[2023-10-25] MEDS: PANCREAZE (LIPASE 10,500U) CAP PO SCH (08:22)
[2023-10-25] MEDS: SERTRALINE HCL 100 MG TABLET PO SCH (08:22)
[2023-10-25] MEDS: amLODIPine BESYLATE 5 MG TAB PO SCH (10:25)
--- NOTE | 2023-10-25 11:23 | Orthopedic Consultation ---
Date of Service October 25, 2023 Assessment & Plan (1) Closed Colles' fracture of right radius: (2) Subcapital fracture of right hip: (3) Nondisplaced fracture of styloid process of right ulna: Plan I had a long discussion today with the patient about her right wrist and right hip pathology in great detail with ample amount of time for patient to ask any questions or state any concerns. All questions and concerns were answered to the patient's satisfaction. At this point to focus on the patient's right wrist, she does have a nondisplaced right distal radius fracture as well as ulnar styloid fracture. This may be treated in a Velcro wrist splint as she has already been given one. She will be nonweightbearing to the right wrist. These usually take about 6 to 8 weeks to heal and will require immobilization for this timeframe. She is encouraged to continue working with her fingers to prevent generalized edema as well as stiffness. This could also be worked with occupational therapy when seen in the hospital. As for the right impacted femoral neck fracture, this will require surgical intervention to give her the best chance of healing of the fracture as well as to get her back to early ambulation. I discussed in detail the risk, benefits, alternatives to right open reduction internal fixation utilizing a femoral neck system in great detail with ample amount of time for patient ask any questions stating concerns. All question concerns were answered to the patient's satisfaction and she wishes to proceed with surgical intervention. The orthopedic surgeon that is going to be involved in her case will be Dr. Cavazos. He would like to proceed with surgical intervention tomorrow afternoon. She will be n.p.o. after midnight. We will proceed as scheduled unless deemed not medically stabilized by primary service. Medical management per primary. Continue holding her Eliquis at this point. Anticipated restart of DVT prophylaxis status post 1 day from surgery. Will continue to follow. History of Present Illness Reason for Consultation: . Right wrist and right hip fracture Requesting Physician: . Attending Physician: Kelley Herrera MD . Sully is a pleasant 83-year-old female with a significant past medical history who arrived yesterday evening to the emergency department after she sustained a fall. She notes that she was taking her dog outside when outside and when she was trimming some of her bushes she fell and landed on her right side. She was unable to weight-bear at that point and called her neighbors for help. She did state that they originally tried to go to [facility] but were unable to be seen. She then went to her PCPs office who sent her to the emergency department where they completed an x-ray study of both the wrist and the hip and found to have a nondisplaced distal right radius and ulnar styloid fractures as well as an impacted right femoral neck fracture. She was then admitted to the hospital with consultation for us to see her in the morning. Today, she notes that her pain is quite well-controlled. She is currently in a Velcro wrist splint to the right wrist and on bedrest orders due to the right hip fracture. She is currently on Eliquis but is currently being held here in the hospital. She denies any other concerns today. Allergies Allergy/AdvReac Type Severity Reaction Status Date / Time Iodinated Contrast Media Allergy Severe Hives, Verified 10/24/23 19:46 anaphylaxis ether Allergy Unknown Unknown Verified 10/24/23 19:46 prednisone AdvReac Severe GI pain > Verified 10/24/23 19:46 pancreatitis rosiglitazone AdvReac Severe Blood clots Verified 10/24/23 19:46 atorvastatin [From Lipitor] AdvReac Intermediate Muscle Pain Verified 10/24/23 19:46 ezetimibe [From Zetia] AdvReac Intermediate Muscle Pain Verified 10/24/23 19:46 lisinopril AdvReac Intermediate Cough Verified 10/24/23 19:46 losartan AdvReac Intermediate N/V Verified 10/24/23 19:46 ranitidine AdvReac Intermediate N/V, Verified 10/24/23 19:46 achiness rosuvastatin [From Crestor] AdvReac Intermediate Muscle Pain Verified 10/24/23 19:46 Home Medications Medication Instructions Recorded Confirmed Type aspirin 81 mg tablet,delayed 81 mg PO QPM 03/19/18 10/24/23 History release levothyroxine 50 mcg tablet 50 mcg PO DAILYBB 03/19/18 10/24/23 History nitroglycerin 0.4 mg sublingual 1 tab sublingual UD PRN Chest Pain 03/19/18 10/24/23 History tablet alprazolam 0.25 mg tablet (Xanax) 0.25 mg PO TID PRN Anxiety/INSOMNIA 06/18/20 10/24/23 History cholecalciferol (vitamin D3) 50 2,000 unit PO QAM 06/18/20 10/24/23 History mcg (2,000 unit) tablet (Vitamin D3) dicyclomine 10 mg capsule 10 mg PO QID PRN Indigestion 06/18/20 10/24/23 History acetaminophen 500 mg tablet 1,000 mg PO Q8H PRN knee pain 02/24/21 10/24/23 History (Tylenol Extra Strength) amlodipine 5 mg tablet 5 mg PO DAILY 12/21/22 10/24/23 History cholestyramine (with sugar) 4 gram 1 ea PO Q OTHER DAY 12/21/22 10/24/23 History powder for susp in a packet sertraline 100 mg tablet 100 mg PO DAILY 12/21/22 10/24/23 History isosorbide mononitrate 60 mg 60 mg PO BID 01/22/23 10/24/23 History tablet,extended release 24 hr apixaban 5 mg tablet (Eliquis) 5 mg PO BID 10/24/23 10/24/23 History diclofenac sodium 1 % topical gel 2 g topical QID PRN Pain 10/24/23 10/24/23 History ztlaxs-jznfwofa-kiqrftr 3 cap PO TIDM 10/24/23 10/24/23 History 3,000-9,500-15,000 unit capsule, delayed rel (Creon) metoprolol succinate 50 mg 75 mg PO BID 10/24/23 10/24/23 History tablet,extended release 24 hr simethicone 80 mg chewable tablet 80 - 160 mg PO QID PRN 10/24/23 10/24/23 History BLOATING/GAS DISCOMFORT Past Med/Surg History Medical History Paroxysmal atrial fibrillation Abdominal pain Carotid artery stenosis LICA/FITZ <50% stenosis, Right subclavian stenosis vs. occlusion with abnormal flow noted in vertebral artery per 08/2019 carotid duplex Chronic back pain Osteoarthritis Pacemaker 08/03 SSS, last pacer check 01/2020 IPMN (intraductal papillary mucinous neoplasm) HTN (hypertension) Dyslipidemia Pulmonary embolism remote years ago DVT (deep venous thrombosis) GERD (gastroesophageal reflux disease) Hypothyroidism CAD (coronary artery disease) CABG x5 in 2005 in [place] with BROWN to LAD, SVG to diagonal, SVG to OM, SVG to RPDA, and SVG to the distal RCA, PCI x3 Surgical History Pacemaker placement H/O parathyroidectomy H/O arthroscopy of shoulder H/O arthroscopy of knee Hx of hemorrhoidectomy S/P BSO (bilateral salpingo-oophorectomy) History of hysterectomy Hx of cholecystectomy S/P CABG x 3 CABG x5 in 2006 in [place] with BROWN to LAD, SVG to diagonal, SVG to OM, SVG to RPDA, and SVG to the distal RCA Hx of appendectomy Hx of adenoidectomy Hx of tonsillectomy Hx of cataract surgery Family History Mother Stroke Social History Smoking Status: Never smoker Second Hand Exposure: No; Do You Dip or Chew Tobacco: No; Hx Alcohol Use: No Hx Substance Use: No Preferred Language: Algerian Communication Ability: Effective 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 Physical Exam . Constitutional: WD/WN, vitals as above no acute distress Eyes: PERRL, conjunctivae normal, anicteric sclerae Neck: trachea midline, no thyromegaly Respiratory: normal respiratory effort, lungs clear to auscultation Cardiovascular: RRR, no murmur, no edema Vessels: normal carotid upstroke; no carotid bruit Gastrointestinal (Abdomen): normal bowel sounds, soft, nontender, no hepatosplenomegaly Skin: no rashes, warm and dry Neurologic: CN's II-XI intact bilaterally and moves all extremities Psychiatric: A+Ox3, euthymic affect Musculoskeletal On focused examination of the right wrist, she is currently in her Velcro wrist splint. She does have some generalized ecchymosis throughout the wrist. She is able to wiggle all 5 digits. Grossly intact motor and sensory function at the shoulder and elbow. +2 radial pulse. Less than 2-second capillary refill. Normal sensation. Neurovascular intact. On focused examination of the right hip, her leg is slightly shortened. Motion was not assessed due to the nature of the fracture. Grossly intact motor and sensory function at the knee, ankle, and all 5 toes. +2 DP and PT pulses. Less than 2-second capillary refill. Normal sensation. Neurovascular intact. Results & Data Results & Data Laboratory Results . Diagnostic Findings . Chest X-Ray 10/24/23 17:40 XR chest 1V portable HISTORY: fall COMPARISON: Chest 01/22/2023. FINDINGS: No pneumothorax. No pleural effusions. The heart remains mildly enlarged. No focal lung consolidations to suggest a pneumonia. No evidence for pulmonary edema. Calcifications within the aortic knob. Chronic deformity within the right humeral neck, unchanged. There is a left-sided dual-chamber pacemaker and poststernotomy changes. IMPRESSION: No acute process. ACT 112: Negative or not required by law. Electronically signed by: Preston Schroeder M.D. 10/24/2023 6:31 PM Wrist X-Ray 10/24/23 17:40 XR wrist RT min 3V routine CLINICAL HISTORY: fall. Right wrist pain. COMPARISON STUDY: None. FINDINGS: Soft tissue swelling within the right wrist. The bones are osteopenic. Nondisplaced intra-articular fracture within the distal right radius. There is also nondisplaced fracture at the tip of the ulnar styloid. No dislocation. IMPRESSION: Nondisplaced distal right radius and ulnar styloid fractures. ACT 112: Negative or not required by law. Electronically signed by: Preston Schroeder M.D. 10/24/2023 6:28 PM Hip/Pelvis X-Ray 10/24/23 17:40 XR hip RT 2V w pelvis CLINICAL HISTORY: fall. Right hip pain. COMPARISON STUDY: None. FINDINGS: The bones are osteopenic. Irregularity at the right femoral head neck junction suggestive of an impacted right femoral neck fracture. No dislocation. The visualized pelvic bones are intact. Moderate osteoarthritis of the bilateral hips. IMPRESSION: Abnormal appearance 2 right femoral head/neck junction suggestive of an impacted right femoral neck fracture. ACT 112: Negative or not required by law. Electronically signed by: Preston Schroeder M.D. 10/24/2023 6:34 PM PG Care Time/CCT Total # of Minutes Spent Total Time Spent with Patient: Total time spent is greater than 50% in coordination of care (as documented) at patient's floor/unit and/or counseling patient: Supervising Physician Co-Signing Physician Notes Patient was independently evaluated by me. I agree with the physician obstetric assistant's note in its entirety. I discussed with the patient the need for surgical stabilization for this right femoral neck fracture. My preference is to stabilize this with the percutaneous screw technique. We will use the Synthes femoral neck system. I reviewed the risks, benefits, and alternatives of the surgery in detail. She demonstrated good understanding, asked appropriate questions, and wanted to proceed with the surgery as I had described. Informed consent was documented today in the preoperative holding area Coding Level of Care Code 92209 IN/OBS CONSULT LVL 3,45M Diagnoses Closed Colles' fracture of right radius S52.531A Encounter type: initial encounter Subcapital fracture of right hip S72.011A Encounter type: initial encounter Fracture type: closed Closed nondisplaced fracture of styloid process of right ulna, initial encounter S52.614A Encounter type: initial encounter Fracture type: closed Additional Codes Fx Hip/Femur - Proximal femur/neck: Proximal femur/neck ([id number]) Fx Wrist - Distal radius: Distal radius ([id number]) Fx Wrist - Ulnar styloid: Ulnar styloid ([id number]) (1) Closed Colles' fracture of right radius Encounter type: initial encounter Qualified Code(s): S52.531A - Colles' fracture of right radius, initial encounter for closed fracture (2) Subcapital fracture of right hip Encounter type: initial encounter Fracture type: closed Qualified Code(s): S72.011A - Unspecified intracapsular fracture of right femur, initial encounter for closed fracture (3) Nondisplaced fracture of styloid process of right ulna Encounter type: initial encounter Fracture type: closed Qualified Code(s): S52.614A - Nondisplaced fracture of right ulna styloid process, initial encounter for closed fracture
--- NOTE | 2023-10-25 14:42 | Hospitalist Progress Note ---
Date of Service October 25, 2023 Assessment & Plan (1) Fall: Plan: 83-year-old female with past medical history significant for primary hyperparathyroidism, history of adrenal insufficiency, history of adenocarcinoma pancreas status post Whipple's procedure, hypothyroidism, hyperlipidemia, pancreatic cyst, history of pancreatitis, history of sinus node dysfunction status post pacemaker, history of CAD s/p cardiac stenting ,status post CABG, abdominal aortic ectasia, right subclavian artery stenosis, hypertension, paroxysmal atrial fibrillation, bilateral non symptomatic carotid stenosis, GERD, esophageal spasm, CKD stage III, osteoporosis, history of DVT and history of PE, statin intolerance, adjustment disorder who lives at home with her presents with fall and found to have right hip and right wrist fracture. Patient states that she took her dog and went outside and she was trimming her bushes when she fell on the right side ,hit her head but no loss of consciousness. Mechanical fall Nondisplaced distal right radius and ulnar styloid fractures Impacted right femoral neck fracture Pain control, Bowel regimen as needed. Last dose of eliquis 10/23 am per pt, eliquis on hold. N.p.o. midnight. Orthopedics on board, wrist splint for right UE nondisplaced fracture. Possible operative intervention for right hip fracture. PT/OT when able. Mild elevation of troponin, likely demand ischemia Denies any chest pains History of CAD status post stent and CABG serial enzymes and echo reviewed. Cardiology evaluated for preop clearance. History of CAD status post stenting status post CABG: Continue aspirin Imdur, metoprolol succinate History of DVT and PE: Patient says blood clot was more than 2 years ago. We will hold Eliquis for now and restart as soon as possible History of A-fib: Rate controlled with metoprolol succinate. Holding Eliquis for now Sick sinus syndrome: Status post pacemaker History of adenocarcinoma pancreas: Status post Whipple's procedure. Patient seems declined chemotherapy. Follows with hematology oncology Hypertension: On amlodipine and metoprolol succinate. Continue. Will monitor Adjustment disorder: On Zoloft, continue DVT prophylaxis: Holding Eliquis for any plan for procedures. Anticoagulation per orthopedics if procedure planned. Disposition: Med/telemetry Full code Admission and Anticipated Discharge Date Admission Date: October 24, 2023 Subjective Patient was seen and examined at bedside. Patient was lying in bed, on 2 L oxygen via nasal cannula, NAD, resting comfortably. Patient denies any new complaints, febrile illness, chest pain. Patient reports pain under control when not moving, exacerbation of pain with movement. Physical Exam Physical Exam: General- Not in distress Head- atraumatic Eyes- PERRL. ENT- oropharynx clear Neck- supple, no JVD. Lungs- clear to auscultation no wheezing or crackles. Heart- regular rhythm; no murmur, no gallop. Abdomen- normal bowel sounds, soft, nontender, no distension. Extremities- no pretibial edema, no erythema seen. Right lower extremity slightly shortened. RUE in wrist splint. Distal NV status wnl Rt extremities. Neuro- alert, oriented x 3; PERRL, no facial palsy; no dysarthria; obeys simple commands Results & Data Results & Data Vital Signs (Past 12 Hours) Vital Signs Temp Pulse Resp BP BP Pulse Ox O2 Del Method 10/25/23 11:39 37.1 C 81 17 112/61 97 Nasal Cannula 10/25/23 07:55 36.3 C L 60 17 135/72 96 Nasal Cannula 10/25/23 03:41 36.4 C L 59 L 16 129/70 96 Nasal Cannula O2 Flow Rate 10/25/23 11:39 2 10/25/23 07:55 2 10/25/23 03:41 2 (1) Fall Encounter type: initial encounter Qualified Code(s): W19.XXXA - Unspecified fall, initial encounter
--- NOTE | 2023-10-25 15:44 | Electrocardiogram Report ---
Test Reason : Blood Pressure : / mmHG Vent. Rate : 064 BPM Atrial Rate : 064 BPM P-R Int : 204 ms QRS Dur : 112 ms QT Int : 484 ms P-R-T Axes : -26 079 115 degrees QTc Int : 499 ms Atrial-paced rhythm Nonspecific ST abnormality Prolonged QT Abnormal ECG When compared with ECG of 22-JAN-2023 17:53, Electronic atrial pacemaker has replaced Electronic ventricular pacemaker Confirmed by Carlos Alberto Martini ([id number]) on 10/25/2023 3:43:56 PM Referred By: Shonda Chakraborty Confirmed By:Carlos Alberto Martini
--- NOTE | 2023-10-25 15:48 | Electrocardiogram Report ---
Test Reason : Blood Pressure : / mmHG Vent. Rate : 060 BPM Atrial Rate : 060 BPM P-R Int : 140 ms QRS Dur : 112 ms QT Int : 474 ms P-R-T Axes : -09 065 110 degrees QTc Int : 474 ms Atrial-paced rhythm Nonspecific ST abnormality Abnormal ECG When compared with ECG of 24-OCT-2023 18:52, (unconfirmed) No significant change was found Confirmed by Carlos Alberto Martini ([id number]) on 10/25/2023 3:48:37 PM Referred By: Shonda Chakraborty Confirmed By:Carlos Alberto Martini
[2023-10-25] MEDS: POTASSIUM CHLORIDE CRTAB 20 MEQ TABCR PO STA (16:20)
[2023-10-25] MEDS: MAGNESIUM SULFATE / D5W 1 GM/100 ML BAG IV ONE (16:21)
--- OUTSIDE RECORDS SUMMARY | 2023-10-25 20:38 | External Medical Summary | Summary of Care ---
Author Name Unknown Organization [facility] Address [address] [place] [address] Phone [phone] Care Team Providers Care Dress Shoe Inspector Name Role Phone Shonda Fields MD Primary Care Prov ider Reason for Visit * Reason Onset Date Comments Order Request 10/24/2023 case management 10/24/2023 Encounter Details Date Type Department Care Team (Late st Contact Info) Description 10/24/2023 Telephone Care Coordination and Integration [address] [place] [address] Berna Kelly RN [address], [place] [phone] Order Request; case management Allergies Active Allergy Reactions Criticality Noted Date Comments Ether 12/29/2015 Some type of anesthesia during EGD on 12/10/2015. Rosuvastatin Calcium Muscle pain 02/21/2019 Iodinated Contrast Media Anaphylaxis High 09/13/2011 Ultravist dye Atorvastatin Calcium Muscle pain 02/21/2019 Lisinopril Cough 03/16/2017 Loratadine 12/29/2015 nauseous Losartan 11/02/2018 Other reaction(s): NAUSEA AND VOMITING Prednisone High 11/02/2018 Other reaction(s): GI PAIN-LED TO PANCREATITIS Prednisone 10/19/2010 "bad reaction" anaphylaxis and perhaps pancreatitis Ranitidine 11/02/2018 Other reaction(s): NAUSEA AND VOMITING,ACHY Rosiglitazone High 11/02/2018 Other reaction(s): BLOOD CLOTS Ezetimibe Muscle pain 02/21/2019 documented as of this encounter (statuses as of 10/24/2023) Medications Medication Sig Dispensed Refills Start Date End Date Status ASPIRIN EC 81 MG PO TBEC 1 TABLET DAILY 0 07/22/2014 Active acetaminophen (TYLENOL) 500 MG Tablet Take 2 Tablets by mouth every 8 hours as needed for Pain. 0 Active Diclofenac Sodium 1 % External Gel (Voltaren)Indication s:Shoulder arthritis Apply topically to affected area daily. 100 g 1 03/14/2021 Active Additional Information Patient taking differently:TopicalPRN, Reported on 10/03/2023 Vitamin D3 25 MCG Oral Tablet 5 Tablets. Pt taking every other day 0 06/16/2021 Active Nitroglycerin 0.4 MG Sublingual Tablet Sublingual (Nitrostat)Indicatio ns:S/P coronary artery stent placement,Coronary artery disease of [place] artery of [place] heart with stable angina pectoris (HCC) Place under the tongue 1 Tablet every 5 minutes as needed for Pain, Chest. up to 3 doses in 15 minutes 150 Tablet 3 11/30/2021 Active Calcium 600-D 600-400 MG-UNIT Oral Tablet Take 1 Tablet by mouth in the morning. In the morning.. 0 02/01/2022 Active Cholestyramine 4 GM Oral Packet (Questran) Take 1 Packet by mouth every other day. Mixed with liquid. 90 Packet 1 07/13/2022 Active amLODIPine Besylate 5 MG Oral Tablet (Norvasc)Indications :HTN, goal below 140/90 Take 1 Tablet by mouth in the morning. 30 Tablet 5 12/19/2022 Active Potassium Chloride Debi ER 20 MEQ Oral Tablet Extended Release Take 1 Tablet by mouth in the morning and 1 Tablet before bedtime. 60 Tablet 11 01/23/2023 Active Additional Information Patient not taking.Reported on 10/03/2023 ALPRAZolam 0.25 MG Oral Tablet (xaNAX)Indications:S tress TAKE ONE TABLET BY MOUTH THREE TIMES DAILY NEEDED FOR ANXIETY OR INSOMNIA 30 Tablet 0 01/24/2023 Active Isosorbide Mononitrate ER 60 MG Oral Tablet Extended Release 24 Hour (Imdur)Indications:C oronary artery disease of [place] artery of [place] heart with stable angina pectoris (HCC) TAKE 2 TABLETS IN THE MORNING AND 1 TABLET IN THE EVENING 270 Tablet 3 03/21/2023 Active Dicyclomine HCl 10 MG Oral Capsule (Bentyl)Indications: Gastroesophageal reflux disease without esophagitis Take 1 Capsule by mouth 4 times a day as needed for Indigestion. For abdominal pain 120 Capsule 5 03/21/2023 Active Apixaban 5 MG Oral Tablet (Eliquis) Take 1 Tablet by mouth in the morning and 1 Tablet before bedtime. 180 Tablet 3 04/20/2023 Active Levothyroxine Sodium 50 MCG Oral Tablet (Levoxyl)Indications :Acquired hypothyroidism Take by mouth 1 Tablet in the morning. (at least 30 min prior to breakfast or other meds). 90 Tablet 1 05/04/2023 Active Simethicone 80 MG Oral Tablet ChewableIndications: Esophageal spasm CHEW 1-2 TABLETS FOUR TIMES DAILY NEEDED FOR BLOATING/GAS 100 Tablet 5 05/04/2023 Active Pancrelipase (Bcf-Mkte-Grlt) 5477-3182 UNIT Oral Capsule Delayed Release Particles (Creon 3000) Take 3 Capsules by mouth in the morning and 3 Capsules at noon and 3 Capsules in the evening. Take with meals. 270 Capsule 5 05/08/2023 Active Metoprolol Succinate ER 50 MG Oral Tablet Extended Release 24 Hour (toPROL XL)Indications:Parox ysmal atrial fibrillation (HCC) Take 1.5 Tablets by mouth in the morning and 1.5 Tablets before bedtime. 275 Tablet 3 06/05/2023 Active Sertraline HCl 100 MG Oral Tablet (Zoloft)Indications: Adjustment disorder with anxious mood Take 1 Tablet by mouth in the morning. 30 Tablet 5 08/15/2023 Active documented as of this encounter (statuses as of 10/24/2023) Active Problems Problem Noted Date Diagnosed Date Post-op pain 03/08/2023 Adenocarcinoma of pancreas 12/27/2022 Carotid stenosis, non-symptomatic, bilateral Aortic ectasia, abdominal 08/16/2022 Subclavian artery stenosis, right 08/16/2022 Trigger middle finger of left hand 06/09/2022 Greater trochanteric bursitis of left hip 2021 Senile osteoporosis 09/02/2021 Chronic kidney disease, stage 3a 11/09/2020 Overview: Per CKD protocol High risk for fracture due to osteoporosis by DE XA scan 11/05/2020 Esophageal spasm 08/26/2020 Statin intolerance 08/19/2020 Hypertensive kidney disease with stage 3a chronic kidney disease 05/10/2020 Overview: Per CKD protocol 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[place] heart with stable angina pectoris 03/18/2020 Obesity, Class I, BMI 30.0-34.9 (see actual BMI) 03/17/2020 Adjustment disorder with anxious mood 03/17/2020 Hyperparathyroidism, primary 06/26/2019 Adverse reaction to statin medication 04/01/2019 Adrenal insufficiency 04/01/2019 Tremors of nervous system 04/01/2019 Old myocardial infarction 03/18/2019 Paroxysmal atrial fibrillation 11/04/2018 Pancreatic cyst 05/19/2013 Disc disorder of lumbar region 11/04/2012 Sinus node dysfunction 10/30/2012 HTN, goal below 140/90 09/16/2011 S/P coronary artery stent placement 09/13/2011 Cardiac pacemaker in situ 09/13/2011 Hypothyroidism 09/13/2011 Esophageal reflux 09/13/2011 History of DVT (deep vein thrombosis) 09/13/2011 History of pulmonary embolism 09/13/2011 Dyslipidemia, goal LDL below 70 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 0 09/13/2011 Overview: ICD-10 update of inactive term Personal history of malignant neoplasm of skin 0 10/19/2010 Overview: 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), R forehead BCC 01/2012, Ramon L forehead 01/2010 (Efudex) documented as of this encounter (statuses as of 10/24/2023) Resolved Problems Problem Noted Date Diagnosed Date Resolved Date Caregiver burden 06/09/2022 08/15/2023 Hypertensive kidney disease with chronic kidney disease stage III 07/23/2020 09/17/2020 Hypertensive kidney disease with chronic kidney disease stage III 06/23/2019 05/13/2020 Overview: Per CKD protocol Kidney disease, chronic, sta ge III (GFR 30-59 ml/min) 06/09/2019 08/13/2019 Overview: Per CKD protocol Chronic night sweats 04/01/2019 021 NSTEMI (non-ST elevated myoc ardial infarction) 02/21/2019 03/18/2019 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[place] heart with stable angina pectoris 11/04/2018 07/25/2022 Acute pain of right knee 11/30/2017 Hx of actinic keratosis 06/23/2015 06/07/2017 Irritable bowel syndrome 11/16/201208/2017 Abdominal pain 11/16/2012 08/04/2017 IBS (irritable bowel syndrome) 09/13/2011 02/21/2019 Anticoagulation management encounter 09/13/2011 11/04/2018 Dermatochalasis 06/22/2011 01/31/2018 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 0 12/23/2012 documented as of this encounter (statuses as of 10/24/2023) Immunizations Name Administration Dates Next Due COVID-19 mRNA, LNP-s, No Pre serve, 2-Dose Series ([employer]) 05/31/2021,10/20/2020,09/22/2020 Covid-19, Mrna, Lnp-s, Pf, B ivalent, 30 Mcg, IM, 12 yrs and above ([employer]) 05/16/2022 Pneumococcal Conjugate Vacc, 13 Valent (Prevnar) 05/16/2017 Pneumococcal Polysaccharide PPV23 (Pneumovax) 04/04/2013 Season Influenza, Quad, PF, Adjuvanted, 65+ Yrs, IM (FLUAD) 04/08/2020 Seasonal Influenza, Quadriva lent Hd (Fluzone Hd) 08/15/2023,06/09/2022,05/12/2021 Seasonal Influenza, Split, I IV3, With Preserve, Inj 04/01/2011 Seasonal Influenza, Trivalen t, Adjuvanted, 65+ yrs 06/15/2019 TD, Preservative Free 09/13/2011 TDAP (age 10 and older)(Boostrix) 07/06/2014 documented as of this encounter Social History Tobacco Use Types Packs/Day Years Used Date Smoking Tobacco: Never Smokeless Tobacco: Never Alcohol Use Standard Drinks/Week Comments No 0 (1 standard drink = 0.6 oz pur e alcohol) PHQ-2 Answer Date Recorded PHQ Adult Total Score 0 10/05/2023 Hunger Vital Sign Answer Date Recorded Within the past 12 months, y ou worried that your food would run out before you got the money to buy more. Never true 10/10/19 24 Within the past 12 months, t he food you bought just didn't last and you didn't have money to get more. Never true 10/10/2023 Sex and Gender Information Value Date Recorded Sex Assigned at Female 09/27/2020 10:10 AM EDT Gender Identity Female 09/27/2020 10:10 AM EDT Sexual Orientation Straight 09/27/2020 10 :10 AM EDT Job Start Date Occupation Industry Not on file Not on file Not on file documented as of this encounter Functional Status Functional Status Response Date of Assess ment Are you deaf or do you have serious difficulty h earing? No 03/07/2023 Are you blind or do you have serious difficulty seeing, even when wearing glasses? No 03/07/2023 Do you have serious difficul ty walking or climbing stairs? (5 years old or older) No 03/07/2023 Do you have difficulty dress ing or bathing? (5 years old or older) No 03/07/2023 Because of a physical, menta l, or emotional condition, do you have difficulty doing errands alone such as visiting a doctor s office or shopping? (15 years old or older) No 03/07/20 Cognitive Status Response Date of Assessm ent Because of a physical, menta l, or emotional condition, do you have serious difficulty concentrating, remembering, or making decisions? (5 years old or older) No 03/07/2023 documented as of this encounter Miscellaneous Notes * Telephone Encounter - Berna Kelly RN - 10/24/2023 2:00 PM EDT CLARY called patient with directive to come into clinic and go straight back to xray. After xrays, patient is to see PCP. PCP requesting she be 'double booked'. CLARY spoke with receptionist scheduler, Nadira Arora Patient placed on schedule for this afternoon. Patient will call her friend for a ride, and be here before 3 PM, as requested by PCP. * Telephone Encounter - Shonda Fields MD - 10/24/2023 1:54 PM EDT Please double book her on my schedule this afternoon and ask her to get Xrays first * Telephone Encounter - Berna Kelly RN - 10/24/2023 1:17 PM EDT Received call from patient. Alert and oriented. Reports she fell in her driveway yesterday. Went to [facility]. They don't do any xrays after 4 PM - they told her to go to the ER. Patient did not go to ER, said she could not leave her for hours and hours. "I'm hurt." "I can barely walk." Using walker, shuffling gait. Hurt her right wrist, right hip, and right thigh. She also hit her head, and has a black and blue lump. Right wrist is hurting the most - limited use. No bruising on it. Tylenol does not touch the pain. Had a headache yesterday and last night, but that is better today. Having issues getting in/out of bed, up/down from a chair, and moving around in general. Asking if she can come in and have some xrays done?? Please advise..... If you send her to there ER, she will have to call the ambulance, and she cannot sit and wait for hours with her with dementia at home alone. Her son was to be home in case she needed something, but he left and didn't come back. She has no idea where he is. Ongoing bladder/incontinence issues. Slow ambulation using walker - patient is having 'accidents' as she cannot get to the bathroom fastenough. Wears pads, but that is not enough at this time. Please advise....... documented in this encounter Plan of Treatment Upcoming Encounters Date Type Department Care Team (Late st Contact Info) Description 10/24/2023 3:00 PM EDT Office Visit Family Medicine [address] [place] [phone] Shonda Fields MD [address] [place] [address] [place] [address] 10/31/2023 10:20 AM EDT Office Visit Podiatry [facility] [address] [place] [address] Viky Hughes, JENN [address] [place] [address] [place] [address] 11/16/2023 11:30 AM EDT Office Visit Gastroenterology [address] [place] [address] Rina Nicole CRNP [address] [place] [address] 11/20/2023 11:20 AM EDT Office Visit Family Medicine [address] [place] [phone] Shonda Fields MD [address] [place] [address] [place] [address] 12/25/2023 1:30 PM EDT Office Visit Cardiology, [facility] [address] [place] [address] Dulce Boudreaux CRNP [address] [place] [address] 01/16/2024 11:40 AM EDT Office Visit Dermatology [address] [place] [address] Park Alejandra PA-C [address] [place] [address] [place] [address] 02/13/2024 9:30 AM EDT Cardiac Studies Cardiology, [facility] [address] [place] [address] [facility] [address] [place] [address] 10/06/2024 12:30 PM EDT Nurse Only Ancillary [address] [place] [address] Edel, Nurse [address] [place] [address] Scheduled Orders Name Type Priority Associated Diagnoses Orde r Schedule XR WRIST 3 OR MORE VIEWS Medical Imaging Routine Right wrist pain Ordered: 10/24/2023 XR HIP UNILAT 2-3 VIEWS INCLUDING AP PELVIS Medical Imaging Routine Hip pain, right Ordered: 10/24/2023 Health Maintenance Due Date Last Done Comments *BISPHONATE OR OTHER ACCEPTABLE MEDICATION NEEDED FOR OSTEOPOROSIS (REFER TO SMARTSET #1146) 11/25/2022 COVID-19 Vaccine ( season) 2023 05/16/2022, 05/31/2021, 10/20/2020, Additional history exists GFR 02/21/2024 08/23/2023, 03/02, 03/12/2023, Additional history exists CKD PHOS USE SMARTSET 14034 03/13/202403/02, 03/12/2023, 03/11/2023, Additional history exists Albumin/Creatinine Ratio 05/14/2024 023, 06/27/2022, 09/02/2021, Additional history exists DTaP,Tdap,and Td Vaccines (2 - Td or Tdap) 07/06/2024 07/06/2014, 09/13/2011 CKD HGB USE SMARTSET 75260 08/23/202408/23, 03/13/2023, 03/12/2023, Additional history exists TSH 08/23/2024 08/23/2023, 1212/2021, 08/17/2021, Additional history exists Depression Screening 10/04/2024 10/05/2023 DXA Scan 01/18/2025 01/18/2023, 05/0 11/2020, 07/28/2013 Pneumococcal Vaccine: 65+ Years Completed 05/16/2017, 04/04/2013 VITAMIN D LEVEL ONCE IN A LIFETIME-USE SMARTSET# [id number] Completed 10/09/2022, 03/10/2022, 09/02/2021, Additional history exists Influenza Vaccine (FLU shot) Completed 08/15/2023, 06/09/2022, 05/17/2021, Additional history exists GARDASIL-HPV IMMUNIZATION SERIES Aged Out No longer eligible based on patient's age to complete this topic Hepatitis B Aged Out No longer eligi ble based on patient's age to complete this topic MENINGOCOCCAL (MENACTRA/MENVEO) Aged Out No longer eligible based on patient's age to complete this topic Zoster Vaccines Discontinued documented as of this encounter Medical Devices Not on filedocumented as of this encounter Visit Diagnoses Diagnosis Right wrist pain- Primary Pain in joint, forearm Hip pain, right Pain in joint, pelvic region and thigh documented in this encounter Advance Directives Documents on File Type Date 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 Advance Directives and Living Will 01/27/2023 Christiane Chong ADVANCE DIRECTIVE / LIVING WILL Power of Ramp Supervisor 01/27/2023 POWER OF A TTORNEY Latest Code Status on File Code Status Date Activated Date Inactivated Comments Full Code 03/07/2023 6:25 PM 03/13/2023 3:14 PM Question Answer Comments Discussion of Advance Directives occurred with: Not Discussed due to patient's condition Code Status History Code Status Date Activated Date Inactivated Comments Full Code 03/07/2023 1:25 PM 03/07/2023 6:25 PM Question Answer Comments Discussion of Advance Directives occurred with: Not Discussed due to patient's condition Full Code 03/23/2020 12:13 PM 03/24/2020 2:09 PM This order reflects the patients wishes and were consensually agreed upon. Question Answer Comments Discussion of Advance Directives occurred with: Not Discussed Full Code 10/07/2014 8:27 AM 10/07/2014 5:02 PM This or pieter reflects the patients wishes and were consensually agreed upon. Question Answer Comments Discussion of Advance Directives occurred with: Patient Healthcare Agents on File Name Relationship Healthcare Agent Relationship Communication Christiane Clark Adult Child Health Care Agent (per Health Care Power of Ramp Supervisor document) Coral Chong Other - (no specific identity) First Alternate Health Care Agent (per Health Care Power of Ramp Supervisor document) che Care Teams Dress Shoe Inspector Relationship Specialty Start Date End Date Shonda Fields MD [address] [place] [address] [place] [phone] PCP - General Family Medicine 02/21/19 documented as of this encounter
--- OUTSIDE RECORDS SUMMARY | 2023-10-25 20:38 | External Medical Summary | Summary of Care ---
Author Name Unknown Organization [facility] Address [address] [place] [address] Phone [phone] Care Team Providers Care Electric Deicer Inspector Name Role Phone Shonda Fields MD Primary Care Prov ider Reason for Visit * Reason Onset Date Comments Order Request 10/24/2023 case management 10/24/2023 Encounter Details Date Type Department Care Team (Late st Contact Info) Description 10/24/2023 Telephone Care Coordination and Integration [address] [place] [address] Berna Kelly RN [address], [place] [phone] Order Request; case management Allergies Active Allergy [...] coronary artery stent placement,Coronary artery disease of [place] artery of [place] heart with stable angina pectoris (HCC) Place [...] 24 Hour (Imdur)Indications:C oronary artery disease of [place] artery of [place] heart with stable angina pectoris (HCC) TAKE [...] BLOATING/GAS 100 Tablet 5 05/04/2023 Active Pancrelipase (Jnv-Ktme-Foeo) 9417-7383 UNIT Oral Capsule Delayed Release Particles (Creon [...] artery 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[place] heart with stable angina pectoris 03/18/2020 Obesity, [...] 09/13/2011 Dyslipidemia, goal LDL below 70 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 CLARY spoke with haul cane brakeman, Nadira Arora Patient placed on schedule for [...] fell in her driveway yesterday. Went to [facility]. They don't do any [...] 3:00 PM EDT Office Visit Family Medicine [address] [place] [phone] Shonda Fields MD [address] [place] [address] [place] [address] 10/31/2023 10:20 AM EDT Office Visit Podiatry [facility] [address] [place] [address] Viky Hughes, JENN [address] [place] [address] [place] [address] 11/16/2023 11:30 AM EDT Office Visit Gastroenterology [address] [place] [address] Rina Nicole CRNP [address] [place] [address] 11/20/2023 11:20 AM EDT Office Visit Family Medicine [address] [place] [phone] Shonda Fields MD [address] [place] [address] [place] [address] 12/25/2023 1:30 PM EDT Office Visit Cardiology, [facility] [address] [address] Dulce Boudreaux CRNP [address] [place] [address] 01/16/2024 11:40 AM EDT Office Visit Dermatology [address] [place] [address] Park Alejandra PA-C [address] [place] [address] [place] [address] 02/13/2024 9:30 AM EDT Cardiac Studies Cardiology, [facility] [address] [place] [address] [facility] [address] [place] [address] 10/06/2024 12:30 PM EDT Nurse Only Ancillary [address] [place] [address] Edel, Nurse [address] [place] [address] Scheduled Orders Name Type Priority Associated Diagnoses [...] Additional history exists CKD PHOS USE SMARTSET 37153 03/13/202403/02, 03/12/2023, 03/11/2023, Additional history exists Albumin/Creatinine Ratio 05/14/2024 023, 06/27/2022, 09/02/2021, Additional history exists DTaP,Tdap,and Td Vaccines (2 - Td or Tdap) 07/06/2024 07/06/2014, 09/13/2011 CKD HGB USE SMARTSET 10869 08/23/202408/23, 03/13/2023, 03/12/2023, Additional history exists TSH 08/23/2024 08/23/2023, 1212/2021, 08/17/2021, Additional history exists Depression Screening 10/04/2024 10/05/2023 DXA Scan 01/18/2025 01/18/2023, 05/0 11/2020, 07/28/2013 Pneumococcal Vaccine: 65+ Years Completed 05/16/2017, 04/04/2013 VITAMIN D LEVEL ONCE IN A LIFETIME-USE SMARTSET# [id number] Completed 10/09/2022, 03/10/2022, 09/02/2021, Additional history exists [...] Documents on File Type Date Recorded Patient Pediatric Dentist Expl anation Advance Directives and Living Will 01/27/2023 Christiane Chong ADVANCE DIRECTIVE / LIVING WILL Power of Engineered Wood Designer 01/27/2023 POWER OF A TTORNEY Latest Code [...] Care Agent (per Health Care Power of Engineered Wood Designer document) [email or web address] Coral Chong Other - (no specific identity) First Alternate Health Care Agent (per Health Care Power of Engineered Wood Designer document) [email or web address] Care Teams Electric Deicer Inspector Relationship Specialty Start Date End Date Shonda Fields MD [address] [place] [address] [place] [phone] PCP - General Family Medicine 02/21/19 documented as of this encounter
--- OUTSIDE RECORDS SUMMARY | 2023-10-25 20:39 | External Medical Summary | Summary of Care ---
Author Name Unknown Organization [facility] Address [address] [place] [address] Phone [phone] Care Team Providers Care Ehs Engineer Name Role Phone Shonda Fields MD Primary Care Prov ider Encounter Details Date Type Department Care Team (Latest Contact Info) Description 10/08/2023 10:00 AM EDT - 10/08/2023 11:59 PM EDT Hospital Encounter Radiology Film File [address], [place] [id number] Arrived Discharge Disposition: Home - Self Care Allergies Active Allergy Reactions Criticality Noted Date [...] as of this encounter (statuses as of 10/09/2023) Medications Medication Sig Dispensed Refills Start Date [...] coronary artery stent placement,Coronary artery disease of [place] artery of [place] heart with stable angina pectoris (HCC) Place [...] 24 Hour (Imdur)Indications: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) TAKE [...] BLOATING/GAS 100 Tablet 5 05/04/2023 Active Pancrelipase (Ynz-Zlun-Kgtn) 8081-3557 UNIT Oral Capsule Delayed Release Particles (Creon [...] as of this encounter (statuses as of 10/09/2023) Active Problems Problem Noted Date Diagnosed Date [...] artery 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[place] heart with stable angina pectoris 03/18/2020 Obesity, [...] 09/13/2011 Dyslipidemia, goal LDL below 70 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 0 09/13/2011 Overview: ICD-10 update of inactive term Personal history of malignant neoplasm of skin 0 10/19/2010 Overview: 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), R forehead BCC 01/2012, Ramon L forehead 01/2010 (Efudex) documented as of this encounter (statuses as of 10/09/2023) Resolved Problems Problem Noted Date Diagnosed Date [...] artery 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[place] heart with stable angina pectoris 11/04/2018 07/25/2022 Acute pain of right knee 11/30/2017 Hx of actinic keratosis 06/23/2015 06/0 07/2017 Irritable bowel syndrome 11/16/201208/2017 Abdominal pain 11/16/2012 08/04/2017 IBS (irritable bowel syndrome) 09/13/2011 02/21/2019 Anticoagulation management encounter 09/13/2011 11/04/2018 Dermatochalasis 06/22/2011 01/31/2018 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 0 12/23/2012 documented as of this encounter (statuses as of 10/09/2023) Immunizations Name Administration Dates Next Due COVID-19 mRNA, LNP-s, No Pre serve, 2-Dose Series (Voxa) 05/31/2021,10/20/2020,09/22/2020 Covid-19, Mrna, Lnp-s, Pf, B ivalent, 30 Mcg, IM, 12 yrs and above (Pfizer) 05/16/2022 Pneumococcal Conjugate Vacc, 13 Valent (Prevnar) [...] the money to buy more. Never true 10/05/19 24 Within the past 12 months, t he food you bought just didn't last and you didn't have money to get more. Never true 10/05/2023 Sex and Gender Information Value Date Recorded [...] No 03/07/2023 documented as of this encounter Plan of Treatment Upcoming Encounters Date Type Department Care Team (Late st Contact Info) Description 10/31/2023 10:20 AM EDT Office Visit Podiatry [facility] [address] [place] [address] Viky Hughes DPM [address] [place] [address] James [place] [address] 11/16/2023 11:30 AM EDT Office Visit Gastroenterology [address] [place] [address] Rina Nicole CRNP [address] [place] [address] 11/20/2023 11:20 AM EDT Office Visit Family Medicine [address] [place] [phone] Shonda Fields MD [address] [place] [address] [place] [address] 12/25/2023 1:30 PM EDT Office Visit Cardiology, [facility] 132 [facility] [place] [address] Dulce Boudreaux CRNP 132 [facility] [place] [address] 01/16/2024 11:40 AM EDT Office Visit Dermatology [address] [place] [address] Park Alejandra PA-C [address] [place] [address] [place] [address] 02/13/2024 9:30 AM EDT Cardiac Studies Cardiology, [facility] 132 [facility] [place] [address] [facility] 132 [facility] [place] [address] 10/06/2024 12:30 PM EDT Nurse Only Ancillary [address] [place] [address] Edel, Nurse Annual Wellness [address] [place] [address] [place] [address] Health Maintenance Due Date Last Done Comments *BISPHONATE OR OTHER ACCEPTABLE MEDICATION NEEDED FOR OSTEOPOROSIS (REFER TO SMARTSET #1146) 11/25/2022 COVID-19 Vaccine (2022- season) 2023 05/16/2022, 05/31/2021, 10/20/2020, Additional history exists GFR 02/21/2024 08/23/2023, 03/02, 03/12/2023, Additional history exists CKD PHOS USE SMARTSET 21241 03/13/202403/02, 03/12/2023, 03/11/2023, Additional history exists Albumin/Creatinine Ratio 05/14/2024 023, 06/27/2022, 09/02/2021, Additional history exists DTaP,Tdap,and Td Vaccines (2 - Td or Tdap) 07/06/2024 07/06/2014, 09/13/2011 CKD HGB USE SMARTSET 56597 08/23/202408/23, 03/13/2023, 03/12/2023, Additional history exists TSH 08/23/2024 08/23/2023, 06/02, 08/17/2021, Additional history exists Depression Screening 10/04/2024 10/05/2023 DXA Scan 01/18/2025 01/18/2023, 05/0 11/2020, 07/28/2013 Pneumococcal Vaccine: 65+ Years Completed 05/16/2017, 04/04/2013 VITAMIN D LEVEL ONCE IN A LIFETIME-USE SMARTSET# [id number] Completed 10/09/2022, 03/10/2022, 09/02/2021, Additional history exists [...] Not on filedocumented as of this encounter Procedures Procedure Name Priority Date/Time Associated Diagnosis Comments DERM EXAM - DERM (IMAGES ONLY, NO REPORT) Routine 10/08/2023 10:00 AM EDT Hx of nonmelanoma skin cancer Lentigines Seborrheic keratosis Actinic keratosis documented in this encounter Results * DERM EXAM - DERM (IMAGES ONLY, NO REPORT) (10/08/2023 10:00 AM EDT) Narrative Scheduling, Silent - 10/08/2023 10:00 AM EDT This is an imaging study not interpreted or resulted by a [facility] or [facility] contracted radiologist. Park Alejandra PA-C RADIOLOGY (RAD GENERAL) documented in this encounter Advance Directives Documents on File Type Date Recorded Patient Network Field Engineer Expl anation Advance Directives and Living Will 01/27/2023 Christiane Chong ADVANCE DIRECTIVE / LIVING WILL Power of Clinical Applications Manager 01/27/2023 POWER OF A TTORNEY Latest Code [...] Care Agent (per Health Care Power of Clinical Applications Manager document) [email or web address] Coral Chong Other - (no specific identity) First Alternate Health Care Agent (per Health Care Power of Clinical Applications Manager document) che Care Teams Ehs Engineer Relationship Specialty Start Date End Date Shonda Fields MD [address] [place] [address] [place] [address] PCP - General Family Medicine 02/21/19 documented as of this encounter
--- OUTSIDE RECORDS SUMMARY | 2023-10-25 20:39 | External Medical Summary | Summary of Care ---
Author Name Unknown Organization [facility] Address [address] [place] [address] Phone [phone] Care Team Providers Care Pharmacy General Manager Name Role Phone Shonda Fields MD Primary Care Prov ider Reason for Visit * Reason Onset Date Comments Medication Problem 10/05/2023 case management 10/05/2023 Encounter Details Date Type Department Care Team (Late st Contact Info) Description 10/05/2023 Telephone Care Coordination and Integration [address] [place], [place] [phone] Berna Kelly RN [address], [place] [phone] Medication Problem; case management Allergies Active Allergy Reactions Criticality [...] as of this encounter (statuses as of 10/11/2023) Medications Medication Sig Dispensed Refills Start Date [...] coronary artery stent placement,Coronary artery disease of [place] artery of [place] heart with stable angina pectoris (HCC) Place [...] 24 Hour (Imdur)Indications: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) TAKE [...] BLOATING/GAS 100 Tablet 5 05/04/2023 Active Pancrelipase (Whm-Forr-Oyex) 1008-3506 UNIT Oral Capsule Delayed Release Particles (Creon [...] as of this encounter (statuses as of 10/11/2023) Active Problems Problem Noted Date Diagnosed Date [...] artery 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[place] heart with stable angina pectoris 03/18/2020 Obesity, [...] 09/13/2011 Dyslipidemia, goal LDL below 70 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 0 09/13/2011 Overview: ICD-10 update of inactive term Personal history of malignant neoplasm of skin 0 10/19/2010 Overview: 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), R forehead BCC 01/2012, Ramon L forehead 01/2010 (Efudex) documented as of this encounter (statuses as of 10/11/2023) Resolved Problems Problem Noted Date Diagnosed Date [...] artery 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[place] heart with stable angina pectoris 11/04/2018 07/25/2022 Acute pain of right knee 11/30/2017 Hx of actinic keratosis 06/23/2015 06/07/2017 Irritable bowel syndrome 11/16/201208/2017 Abdominal pain 11/16/2012 08/04/2017 IBS (irritable bowel syndrome) 09/13/2011 02/21/2019 Anticoagulation management encounter 09/13/2011 11/04/2018 Dermatochalasis 06/22/2011 01/31/2018 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 0 12/23/2012 documented as of this encounter (statuses as of 10/11/2023) Immunizations Name Administration Dates Next Due COVID-19 mRNA, LNP-s, No Pre serve, 2-Dose Series ([employer]) 05/31/2021,10/20/2020,09/22/2020 Covid-19, Mrna, Lnp-s, Pf, B ivalent, 30 Mcg, IM, 12 yrs and above ([employer]Perks) 05/16/2022 Pneumococcal Conjugate Vacc, 13 Valent (Prevnar) [...] (15 years old or older) No 03/07/20 23 Cognitive Status Response Date of Assessm ent Because of a physical, menta l, or emotional condition, do you have serious difficulty concentrating, remembering, or making decisions? (5 years old or older) No 03/07/2023 documented as of this encounter Miscellaneous Notes * Telephone Encounter - Berna Kelly RN - 10/05/2023 2:07 PM EDT Patient interested in changing to [facility] so she can get pill packs and have medications delivered. She has been getting confused filling her med production planner scheduler, putting in too many pills or missing doses. Also having issues cutting pills in half. Please send all meds to [facility] with request for pill packs and delivery services. Thank you. documented in this encounter Plan of Treatment Upcoming Encounters Date Type Department Care Team (Late st Contact Info) Description 10/31/2023 10:20 AM EDT Office Visit Podiatry [facility] [address] [place] [address] Viky Hughes DPM [address] [place] [address] [place] [address] 11/16/2023 11:30 AM EDT Office Visit Gastroenterology [address] [place] [address] Rina Nicole CRNP 132 [facility] [place] [address] 11/20/2023 11:20 AM EDT Office Visit Family Medicine [address] [place] [phone] Shonda Fields MD [address] [place] [address] [place] [address] 12/25/2023 1:30 PM EDT Office Visit Cardiology, [facility] [place] [address] Dulce Boudreaux CRNP [address] [facility] [place] [address] 01/16/2024 11:40 AM EDT Office Visit Dermatology [address] [place] [address] Park Alejandra PA-C [address] [place] [address] [place] [address] 02/13/2024 9:30 AM EDT Cardiac Studies Cardiology, [facility] 132 [facility] [place] [address] [facility] [place] [address] 10/06/2024 12:30 PM EDT Nurse Only Ancillary [address] [place] [address] Edel, Nurse [address] [place] [address] Health Maintenance Due Date Last Done Comments *BISPHONATE OR OTHER ACCEPTABLE MEDICATION NEEDED FOR OSTEOPOROSIS (REFER TO SMARTSET #1146) 11/25/2022 COVID-19 Vaccine ( season) 2023 05/16/2022, 05/31/2021, 10/20/2020, Additional history exists GFR 02/21/2024 08/23/2023, 03/02, 03/12/2023, Additional history exists CKD PHOS USE SMARTSET 29373 03/13/202403/02, 03/12/2023, 03/11/2023, Additional history exists Albumin/Creatinine Ratio 05/14/2024 023, 06/27/2022, 09/02/2021, Additional history exists DTaP,Tdap,and Td Vaccines (2 - Td or Tdap) 07/06/2024 07/06/2014, 09/13/2011 CKD HGB USE SMARTSET 95739 08/23/202408/23, 03/13/2023, 03/12/2023, Additional history exists TSH 08/23/2024 08/23/2023, 06/02, 08/17/2021, Additional history exists Depression Screening 10/04/2024 10/05/2023 DXA Scan 01/18/2025 01/18/2023, 05/0 11/2020, 07/28/2013 Pneumococcal Vaccine: 65+ Years Completed 05/16/2017, 04/04/2013 VITAMIN D LEVEL ONCE IN A LIFETIME-USE SMARTSET# [id number] Completed 10/09/2022, 03/10/2022, 09/02/2021, Additional history exists [...] as of this encounter Visit Diagnoses Diagnosis Need for case management follow-up- Primary documented in this encounter Advance Directives Documents on File Type Date Recorded Patient Compounding Pharmacy Technician Expl anation Advance Directives and Living Will 01/27/2023 Christiane Chong ADVANCE DIRECTIVE / LIVING WILL Power of Painting Supervisor 01/27/2023 POWER OF A TTORNEY Latest [...] Care Agent (per Health Care Power of Painting Supervisor document) [email or web address] Coral Chong Other - (no specific identity) First Alternate Health Care Agent (per Health Care Power of Painting Supervisor document) [email or web address] Care Teams Pharmacy General Manager Relationship Specialty Start Date End Date Shonda Fields MD [address] [place] [address] [place] [phone] PCP - General Family Medicine 02/21/19 documented as of this encounter
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
--- OUTSIDE RECORDS SUMMARY | 2023-10-25 20:39 | External Medical Summary | Summary of Care ---
Author Name Unknown Organization [facility] Address [address] [place] [address] Phone [phone] Care Team Providers Care [employer] Name Role Phone Shonda Fields MD Primary Care Prov ider Reason for Visit * Reason Comments Follow Up Pt here for issue wi th nose. States it is "rough all over". 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[place] artery of [place] heart with stable angina pectoris (HCC) TAKE [...] BLOATING/GAS 100 Tablet 5 05/04/2023 Active Pancrelipase (Ivv-Xbac-Yqjs) 4367-5212 UNIT Oral Capsule Delayed Release Particles (Creon [...] artery 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[place] heart with stable angina pectoris 03/18/2020 Obesity, [...] 09/13/2011 Dyslipidemia, goal LDL below 70 09/13/2011 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 care current use of anticoagulant therapy 0 09/13/2011 [...] artery 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[place] heart with stable angina pectoris 11/04/2018 07/25/2022 [...] mRNA, LNP-s, No Pre serve, 2-Dose Series ([facility]) 05/31/2021,10/20/2020,09/22/2020 Covid-19, Mrna, Lnp-s, Pf, B ivalent, 30 Mcg, IM, 12 yrs and above ([facility]) 05/16/2022 Pneumococcal Conjugate Vacc, 13 Valent (Prevnar) [...] No 03/07/2023 documented as of this encounter Patient Instructions * Patient Instructions* Park Alejandra PA-C - 10/08/2023 9:58 AM EDT Skin Cryosurgery (FREEZING) Instructions Most areas treated by freezing will need very little care. You may wash normally with soap and water and leave any small crusts in place. Vaseline to treated areas 2-3 times per day is a good idea, you do not need to keep them covered with bandages. If a large blister forms and breaks, you will want to apply a light dressing to the area. CHANGE DRESSING ONCE DAILY 1. Wash hands and remove the original dressing(s) in 12-24 hours. 2. Gently clean wound(s) with soap and water. Rinse with water and pat the wound dry. 3. Apply a thin layer of Vaseline ointment with a Q-tip. 4. Cover with a bandage if area(s) is not on the face or scalp. A dressing is not required on the face or scalp. Use non-adherent dressing and paper tape if you are sensitive to band-aid adhesive sensitive. 5. If you have any concerns about the healing wound, please either or our main Dermatology office in [place] at [phone]. If an emergency, please go to your nearest Emergency Department. SUNSCREEN USE AND SUN PROTECTION: 1. The best protection is sun avoidance. Seek shade if you can, especially between 10am to 4pm (peak sun hours). 2. Use sunscreen with an SPF (Sun Protection Factor - the number on most sunscreen bottles) of 30 or more that protects from Ultraviolet A (UVA) and Ultraviolet B (UVB) wavelength light (strongly recommend SPF 50). This is referred to as broad spectrum sun protection because it protects from most wa velengths in both spectrums of UVA and UVB light. Unfortunately, even though the protection is broad it is not complete, therefore making sun avoidance the best protection. UVB and UVA have both beenimplicated in causing skin cancers. Older sunscreens only protected from UVB and sunscreens with added UVA protection should contain Titanium dioxide, Zinc oxide, or Avobenzone. Other oil free, non-comedogenic lotion with SPF 30 or greater is fine. 3. Use sun protection if outside for 15 minutes or more. Apply 20-30 minutes before going out and reapply every 1-2 hours. No sunscreen is truly water ''proof'' and it will wash away with sweat, swimming and rubbing. 4. Wear tightly woven, loose fitting (cooler) long sleeved clothing, UV-blocking sun glasses (eyes need protection as well) and wide-brimmed hatwear (no straw hats with holes because light still getsthrough). Strongly recommended *Neutrogena Pure and Free Baby SPF 60 (have separate face and body lotions) orCeraVe AM facial lotion (with SPF 30). If looking for non toxic alternatives-look for non-caryn particle zinc. Product examples; Think sport, Think baby, María Elena, Babo botanicals, [employer], [place] baby. "Baby" products can be used for all ages. documented in this encounter Progress Notes * Trevor Toro MD - 10/09/2023 8:34 AM EDT I have seen and examined the patient via teledermatology review of chart note and photos with Park Alejandra PA-C. I have reviewed and agree with the assessment and plan. * Park Alejandra PA-C - 10/08/2023 9:57 AM EDT SUBJECTIVE: HPI: Milena Lozoya is a 83 year old female seen at the request of Shonda Villeda for evaluation and treatment of nasal lesions. Pt. declined full skin exam, entirely. Rough areas on nose, "rough all over". No tx to date. Previous Drs. Becker/Kathya and Farida NEWTON patient. 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 REVIEW OF SYSTEMS: SKIN: No other new or changing moles. HEME/LYMPH: No new or enlarging lumps or bumps. CONSTITUTIONAL: No nausea, vomiting, fevers, chills, diarrhea. No recent unintended weight loss, night sweats, appetite or malaise. 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 02/23/2010 CAD (coronary artery disease), [place] coronary artery 2005 Cardiac pacemaker in situ 2005 Coronary bypass graft mechanical complication DVT (deep venous thrombosis) ([facility]) 2008 multiple Dyslipidemia, goal LDL below 100 09/13/2011 Esophageal reflux 09/13/2011 HTN, goal below 140/90 09/16/2011 HX-SKIN MALIGNANCY NEC 10/19/2010 Hyperlipemia Hypothyroid 2010 Hypothyroidism 09/13/2011 IBS (irritable bowel syndrome) 09/13/2011 IBS (irritable bowel syndrome) 09/13/2011 NSTEMI (non-ST elevated myocardial infarction) ([facility]) 02/21/2019 Other pulmonary embolism and infarction 2008 S/P coronary artery stent placement 2005 FAMILY HISTORY: Skin CA: None Skin Disorders: none SOCIAL HISTORY: Social History Tobacco Use Smoking status: Never Smokeless tobacco: Never Substance Use Topics Alcohol use: No Vaping/E-Cigarette Use Vaping/E-Cigarette Use Never User Vaping/E-Cigarette Substances Vaping/E-Cigarette Devices MEDICA TIONS: Current Outpatient Medications Medication Sig Dispense Refill ASPIRIN EC 81 MG PO TBEC 1 TABLET DAILY acetaminophen (TYLENOL) 500 MG Tablet Take 2 Tablets by mouth every 8 hours as needed for Pain. Diclofenac Sodium 1 % External Gel (Voltaren) Apply topically to affected area daily. (Patient taking differently: Apply topically to affected area as needed.) 100 g 1 Vitamin D3 25 MCG Oral Tablet 5 Tablets. Pt taking every other day Nitroglycerin 0.4 MG Sublingual Tablet Sublingual (Nitrostat) Place under the tongue 1 Tablet every5 minutes as needed for Pain, Chest. up to 3 doses in 15 minutes 150 Tablet 3 Calcium 600-D 600-400 MG-UNIT Oral Tablet Take 1 Tablet by mouth in the morning. In the morning.. (Patient not taking: Reported on 10/03/2023) Cholestyramine 4 GM Oral Packet (Questran) Take 1 Packet by mouth every other day. Mixed with liquid. 90 Packet 1 amLODIPine Besylate 5 MG Oral Tablet (Norvasc) Take 1 Tablet by mouth in the morning. 30 Tablet 5 Potassium Chloride Debi ER 20 MEQ Oral Tablet Extended Release Take 1 Tablet by mouth in the morning and 1 Tablet before bedtime. (Patient not taking: Reported on 10/03/2023) 60 Tablet 11 ALPRAZolam 0.25 MG Oral Tablet (xaNAX) TAKE ONE TABLET BY MOUTH THREE TIMES DAILY NEEDED FOR ANXIETY OR INSOMNIA 30 Tablet 0 Isosorbide Mononitrate ER 60 MG Oral Tablet Extended Release 24 Hour (Imdur) TAKE 2 TABLETS IN THE MORNING AND 1 TABLET IN THE EVENING 270 Tablet 3 Dicyclomine HCl 10 MG Oral Capsule (Bentyl) Take 1 Capsule by mouth 4 times a day as needed for Indigestion. For abdominal pain 120 Capsule 5 Apixaban 5 MG Oral Tablet (Eliquis) Take 1 Tablet by mouth in the morning and 1 Tablet before bedtime. 180 Tablet 3 Levothyroxine Sodium 50 MCG Oral Tablet (Levoxyl) Take by mouth 1 Tablet in the morning. (at least 30 min prior to breakfast or other meds). 90 Tablet 1 Simethicone 80 MG Oral Tablet Chewable CHEW 1-2 TABLETS FOUR TIMES DAILY NEEDED FOR BLOATING/LWB327 Tablet 5 Pancrelipase (Mlu-Hzwt-Njci) 2448-6477 UNIT Oral Capsule Delayed Release Particles (Creon 3000) Take 3 Capsules by mouth in the morning and 3 Capsules at noon and 3 Capsules in the evening. Take withmeals. 270 Capsule 5 Metoprolol Succinate ER 50 MG Oral Tablet Extended Release 24 Hour (toPROL XL) Take 1.5 Tablets by mouth in the morning and 1.5 Tablets before bedtime. 275 Tablet 3 Sertraline HCl 100 MG Oral Tablet (Zoloft) Take 1 Tablet by mouth in the morning. 30 Tablet 5 No current facility-administered medications for this visit. ALLERGY: Iodinated contrast media, Prednisone, Rosiglitazone, Anesthetic ether [ether], Crestor [rosuvastatin calcium], Lipitor [atorvastatin calcium], Lisinopril, Loratadine, Losartan, Prednisone [prednisone], Ranitidine, and Zetia [ezetimibe] OBJECT SAMAN: GEN: alert, no distress, appears oriented, pleasant, and cooperative. SKIN: Detailed exam of face including lids and lips, neck, and back completed: 1. Nasal bridge/R central cheek-4 pink/brown scaly papules. 2. Back/L cheek-Many sharply defined, variegated brown, waxy flat papules with velvety to finely verrucous surfaces. 3. Face/neck-Some well defined light to medium brown homogenous stellate macules. ASSESS MENT/PLAN: 1. Actinic keratoses (x4) on nasal bridge/R central cheek-Cryosurgery explained to the patient. Discussed risk of blistering, crusting, infection, scarring, reoccurrence of lesions, hypopigmentation,post inflammatory hyperpigmentation with pt prior to procedure. Verbal consent obtained. Time out called immediately prior to procedure and patient identification and site verified. Cryo therapy performed with Liquid Nitrogen via cryo spray unit to lesion (s) noted above. Location noted in physicalexam. Post op course explained. -Pt declined field therapy to lesions. 2. Seborrheic/Benign Keratosis(-es) on back/L cheek-no tx needed, pt given reassurance and written education about diagnosis. 3. Lentigines on face/neck-No treatment needed, pt given reassurance. Skin cancer brochure given and ABCDE's discussed with patient. Annual full body skin examination (unless I recommended otherwise), self-examination, and sun protection (SPF 30+ daily to sun exposed areas, with reapplication every 1-2 hours when out in sun for long periods of time) advised and discussed. Recommended sooner follow up for new or changing lesions. These changes include rapid enlargement, changes in color or shape or symptoms, bleeding, or other concerns. The common features and behavior of non-melanoma skin cancers (e.g. BCC/SCC) as well as the ABCDEs and ugly duckling features of melanoma were also reviewed. Patient with today. Photo(s) of #1-3 taken, pt verbally consented to having photo(s) taken. Follow-up: 3 months for AKs Photos and chart reviewed by Dr. Trevor Toro. Presum ed diagnoses, expected natural histories, and management options discussed with the patient at length. Questions were addressed and anticipatory guidance provided. They were instructed to contact me if additional questions, concerns, or problems develop in the interim. -There were no barriers to learning and no other pain was related to today's visit. The patient and/or person accompanying patient demonstrates understanding of the visit and treatment. Park Alejandra PA-C 10/08/2023 9:57 AM Ref: SHONDA FIELDS[[id number]] [address] [place] [address] [place] [address] (office) [phone] (fax) PCP: SHONDA FIELDS [address] [place] [address] [place] [address] [phone] documented in this encounter Nursing Notes * Trish Coy LPN - 10/08/2023 9:55 AM EDT Patient identified by full name and date of Chief Complaint Patient presents with Follow Up Pt here for issue with nose. States it is "rough all over". documented in this encounter Plan of Treatment Upcoming Encounters Date Type Department Care Team (Late st Contact Info) Description 10/09/2023 1:00 PM EDT Home Visit Care Coordination and Integration [address] [facility] [place] [place] [address] Marsha Hutton [address] [place] [address] 10/31/2023 10:20 AM EDT Office Visit Podiatry [facility] [address] [place] [address] Viky Hughes, JENN [address] [place] [address] [place] [address] 11/16/2023 11:30 AM EDT Office Visit Gastroenterology [address] [place] [address] Rina Nicole CRNP [address] [place] [address] 11/20/2023 11:20 AM EDT Office Visit Family Medicine [address] [place] [phone] Shonda Fields MD [address] [place] [address] [place] [address] 12/25/2023 1:30 PM EDT Office Visit Cardiology, [facility] [address] [place] [address] Dulce Boudreaux CRNP [address] [place] [address] 01/16/2024 11:40 AM EDT Office Visit Dermatology [address] [place] [address] Park Alejandra PA-C [address] [place] [address] [place] [address] 02/13/2024 9:30 AM EDT Cardiac Studies [facility] [place] [address] [place], Pacer Clinic [facility] [address] [facility] [place] [address] 10/06/2024 12:30 PM EDT Nurse Only Ancillary [address] [place] [address] Ed[place], Nurse [address] [place] [address] Health Maintenance Due Date Last Done Comments *BISPHONATE OR OTHER ACCEPTABLE MEDICATION NEEDED FOR OSTEOPOROSIS (REFER TO SMARTSET #1146) 11/25/2022 COVID-19 Vaccine ( season) 2023 05/16/2022, 05/31/2021, 10/20/2020, Additional history exists GFR 02/21/2024 08/23/2023, 03/02, 03/12/2023, Additional history exists CKD PHOS USE SMARTSET 81091 03/13/202403/02, 03/12/2023, 03/11/2023, Additional history exists Albumin/Creatinine Ratio 05/14/2024 023, 06/27/2022, 09/02/2021, Additional history exists DTaP,Tdap,and Td Vaccines (2 - Td or Tdap) 07/06/2024 07/06/2014, 09/13/2011 CKD HGB USE SMARTSET 72238 08/23/202408/23, 03/13/2023, 03/12/2023, Additional history exists TSH 08/23/2024 08/23/2023, 06/02, 08/17/2021, Additional history exists Depression Screening 10/04/2024 10/05/2023 DXA Scan 01/18/2025 01/18/2023, 05/0 11/2020, 07/28/2013 Pneumococcal Vaccine: 65+ Years Completed 05/16/2017, 04/04/2013 VITAMIN D LEVEL ONCE IN A LIFETIME-USE SMARTSET# 10339 Completed 10/09/2022, 03/10/2022, 09/02/2021, Additional history exists [...] skin cancer Lentigines Seborrheic keratosis Actinic keratosis DERM IMAGE (SITE) Routine 10/08/2023 Hx of nonmelanoma skin cancer Lentigines Seborrheic keratosis Actinic keratosis documented in this encounter Results * DERM EXAM - DERM (IMAGES ONLY, NO REPORT) (10/08/2023 10:00 AM EDT) Narrative Scheduling, Silent - 10/08/2023 10:00 AM EDT This is an imaging study not interpreted or resulted by a [facility] or [facility] contracted radiologist. 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
--- OUTSIDE RECORDS SUMMARY | 2023-10-25 20:39 | External Medical Summary | Summary of Care ---
Author Name Unknown Organization [facility] Address [address] [place] [address] Phone [phone] Care Team Providers Care Theatre Manager Name Role Phone Shonda Fields MD Primary Care Prov ider Encounter Details Date Type Department Care Team (Late st Contact Info) Description 10/10/2023 9:30 AM EDT Home Visit Care Coordination and Integration [address] [place] [address] Marsha Hutton [facility] [address] [place] [address] [place] [address] Allergies Active Allergy Reactions Criticality Noted Date [...] coronary artery stent placement,Coronary artery disease of [place] artery of [place] heart with stable angina pectoris (HCC) Place [...] 24 Hour (Imdur)Indications: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 (HCC) TAKE [...] BLOATING/GAS 100 Tablet 5 05/04/2023 Active Pancrelipase (Xgr-Lgah-Chjd) 8377-3312 UNIT Oral Capsule Delayed Release Particles (Creon [...] artery 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[place] heart with stable angina pectoris 03/18/2020 Obesity, [...] Dyslipidemia, goal LDL below 70 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 0 [...] artery 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[place] heart with stable angina pectoris 11/04/2018 07/25/2022 [...] mRNA, LNP-s, No Pre serve, 2-Dose Series ([facility]) 05/31/2021,10/20/2020,09/22/2020 Covid-19, Mrna, Lnp-s, Pf, B ivalent, 30 Mcg, IM, 12 yrs and above ([facility]) 05/16/2022 Pneumococcal Conjugate Vacc, 13 Valent (Prevnar) [...] as of this encounter Progress Notes * Marsha Hutton, [facility] [employer] - 10/10/2023 10:19 AM EDT Telemedicine visit: No [facility] [employer] ([facility]) documentation: Daughter, Christiane had been living with patient and her spouse. Daughter moved to to [place] to help care or her sister in law ( spouse of patient's son who passed recently). Recalls there are complicated family dynamics concerning her daughter, Christiane. States her own children "think she's crazy". There's a lot of issues between family members re: celebration of life for her son. Her sonJuan Ramon lives locally - comes by often [...] of dollars" Patient is considering moving into [facility] - either independent living or assisted living. Unsure of how her will cope given his cognitive impairment. Patient denies SDOH needs - contrary to reason for [facility] referral. Patient considering pill packs from [facility] - thinks [facility] is here to address this. States some of her medications are from [facility] - the others come from P. Advised patient she needs to decide if she is switching all meds to [facility] Gets isosorbide, metoprolol, omeprazole, amlodipine, and sertraline from [facility]. Patient states she gets the brand name for cheaper - advised patient that she is getting the generic form of medications from [facility]. Patient agreeable to get quote from [facility]. [facility] will call to get med quote and ask to email to patient, if possible. Patient asking for vet information - will send info to patient via email. Offered VS assessment - patient declined. States she is feeling well. No complaints. documented in this encounter Plan of Treatment Upcoming Encounters Date Type Department Care Team (Late st Contact Info) Description 10/31/2023 10:20 AM EDT Office Visit Podiatry [facility] [address] [facility] [place] [address] Viky Hughes DPM [address] [facility] [place] [address] 11/16/2023 11:30 AM EDT Office Visit Gastroenterology [address] [place] [address] Rina Nicole CRNP [address] [place] [address] 11/20/2023 11:20 AM EDT Office Visit Family Medicine [address] [place] [phone] Shonda Fields MD [address] [place] [address] [place] [address] 12/25/2023 1:30 PM EDT Office Visit Cardiology, [facility] [address] [place] [address] Dulce Boudreaux CRNP [address] [place] [address] 01/16/2024 11:40 AM EDT Office Visit Dermatology [address] [place] [address] Park Alejandra PA-C [address] [place] [address] [place] [address] 02/13/2024 9:30 AM EDT Cardiac Studies Cardiology, [facility] [address] [facility] [place] [address] [facility] [address] [place] [address] 10/06/2024 12:30 PM EDT Nurse Only Ancillary [address] [place] [address] Edel Nurse Annual [address] [place] [address] Health Maintenance Due Date Last Done Comments *BISPHONATE OR OTHER ACCEPTABLE MEDICATION NEEDED FOR OSTEOPOROSIS (REFER TO SMARTSET #1146) 11/25/2022 COVID-19 Vaccine (5 - 2023-24 season) 2023 05/16/2022, 05/31/2021, 10/20/2020, Additional history exists GFR 02/21/2024 08/23/2023, 03/02, 03/12/2023, Additional history exists CKD PHOS USE SMARTSET 13303 03/13/202403/02, 03/12/2023, 03/11/2023, Additional history exists Albumin/Creatinine Ratio 05/14/2024 023, 06/27/2022, 09/02/2021, Additional history exists DTaP,Tdap,and Td Vaccines (2 - Td or Tdap) 07/06/2024 07/06/2014, 09/13/2011 CKD HGB USE SMARTSET 58999 08/23/202408/23, 03/13/2023, 03/12/2023, Additional history exists TSH 08/23/2024 08/23/2023, 06/02, 08/17/2021, Additional history exists Depression Screening 10/04/2024 10/05/2023 DXA Scan 01/18/2025 01/18/2023, 05/0 11/2020, 07/28/2013 Pneumococcal Vaccine: 65+ Years Completed 05/16/2017, 04/04/2013 VITAMIN D LEVEL ONCE IN A LIFETIME-USE SMARTSET# 92298 Completed 10/09/2022, 03/10/2022, 09/02/2021, Additional history exists [...] Documents on File Type Date 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 Advance Directives and Living Will 01/27/2023 Christiane Chong ADVANCE DIRECTIVE / LIVING WILL Power of Manager User Interface 01/27/2023 POWER OF A TTORNEY Latest Code [...] Care Agent (per Health Care Power of Manager User Interface document) [email or web address] Coral Chong Other - (no specific identity) First Alternate Health Care Agent (per Health Care Power of Manager User Interface document) che Care Teams Theatre Manager Relationship Specialty Start Date End Date Shonda Fields MD [address] [place] [address] [place] [address] PCP - General Family Medicine 02/21/19 documented as of this encounter
--- OUTSIDE RECORDS SUMMARY | 2023-10-25 20:39 | External Medical Summary | Summary of Care ---
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) Place [...] 24 Hour (Imdur)Indications:C 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) TAKE [...] BLOATING/GAS 100 Tablet 5 05/04/2023 Active Pancrelipase (Eiy-Pexa-Qrvg) 4960-3329 UNIT Oral Capsule Delayed Release Particles (Creon [...] artery 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tolowa dee-ni' heart with stable angina pectoris 03/18/2020 Obesity, [...] 09/13/2011 Dyslipidemia, goal LDL below 70 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 Daughter moved to to [place] to help care or her sister in [...] of dollars" Patient is considering moving into [facility] - either independent living or assisted living. Unsure of how her will cope given his cognitive impairment. Patient denies SDOH needs - contrary to reason for [facility] referral. Patient considering pill packs from [facility] - thinks [facility] is here to address this. States some of her medications are [facility] - the others come from [facility]. Advised patient she needs to decide if she is switching all meds to [facility] Gets isosorbide, metoprolol, omeprazole, amlodipine, and sertraline from [facility] Patient states she gets the brand name for cheaper - advised patient that she is getting the generic form of medications from [facility] [employer]. Patient agreeable to get quote from [facility]. [facility] will call to get med quote [...] 10/31/2023 10:20 AM EDT Office Visit Podiatry [facility] [address] [facility] [place] [address] Viky Hughes DPM [address] [facility] [place] [address] 11/16/2023 11:30 AM EDT Office Visit Gastroenterology [address] [place] [address] Rina Nicole CRNP [address] [place] [address] 11/20/2023 11:20 AM EDT Office Visit Family Medicine [address] [place] [phone] Shonda Fields MD [address] [place] [address] [place] [address] 12/25/2023 1:30 PM EDT Office Visit Cardiology, [facility] [address] [place] [address] Dulce Boudreaux CRNP [address] [place] [address] 01/16/2024 11:40 AM EDT Office Visit Dermatology [address] [place] [address] Park Alejandra PA-C [address] [place] [address] [place] [address] 02/13/2024 9:30 AM EDT Cardiac Studies Cardiology, [facility] 132 [facility] [place] [address] [facility] [address] [place] [address] 10/06/2024 12:30 PM EDT Nurse Only Ancillary [address] [place] [address] [place] Nurse Annual [address] [place] [address] Health Maintenance Due Date Last Done Comments *BISPHONATE OR OTHER ACCEPTABLE MEDICATION NEEDED FOR OSTEOPOROSIS (REFER TO SMARTSET #1146) 11/25/2022 COVID-19 Vaccine (5 - 2023-24 season) 2023 05/16/2022, 05/31/2021, 10/20/2020, Additional history exists GFR 02/21/2024 08/23/2023, 03/02, 03/12/2023, Additional history exists CKD PHOS USE SMARTSET 79846 03/13/202403/02, 03/12/2023, 03/11/2023, Additional history exists Albumin/Creatinine Ratio 05/14/2024 023, 06/27/2022, 09/02/2021, Additional history exists DTaP,Tdap,and Td Vaccines (2 - Td or Tdap) 07/06/2024 07/06/2014, 09/13/2011 CKD HGB USE SMARTSET 45071 08/23/202408/23, 03/13/2023, 03/12/2023, Additional history exists TSH 08/23/2024 08/23/2023, 06/02, 08/17/2021, Additional history exists Depression Screening 10/04/2024 10/05/2023 DXA Scan 01/18/2025 01/18/2023, 05/0 11/2020, 07/28/2013 Pneumococcal Vaccine: 65+ Years Completed 05/16/2017, 04/04/2013 VITAMIN D LEVEL ONCE IN A LIFETIME-USE SMARTSET# [id number] Completed 10/09/2022, 03/10/2022, 09/02/2021, Additional history exists [...] Documents on File Type Date 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 Advance Directives and Living Will 01/27/2023 Christiane Chong ADVANCE DIRECTIVE / LIVING WILL Power of Respiratory Care Instructor 01/27/2023 POWER OF A TTORNEY Latest Code [...] Care Agent (per Health Care Power of Respiratory Care Instructor document) [email or web address] - (no specific identity) First Alternate Health Care Agent (per Health Care Power of Respiratory Care Instructor document) [email or web address] Care Teams Tripoler Relationship Specialty Start Date End Date Shonda Fields MD [address] [place] [address] [place] [address] PCP - General Family Medicine 02/21/19 documented as of this encounter
--- OUTSIDE RECORDS SUMMARY | 2023-10-25 20:40 | External Medical Summary | Summary of Care ---
Author Name Unknown Organization [facility] Address [address] [place] [address] Phone [phone] Care Team Providers Care Speech Language Pathologist Prn Name Role Phone Shonda Fields MD Primary Care Prov ider Reason for Visit * Reason Onset Date Comments Referral Requested by Specialist 09/24/2023 Encounter Details Date Type Department Care Team (Late st Contact Info) Description 09/24/2023 Telephone Podiatry [facility] [address] [facility] [place] [address] Viky Hughes, DPMeghan [address] [facility] [place] [id number] Referral Requested by Specialist Allergies Active Allergy Reactions Criticality Noted Date [...] as of this encounter (statuses as of 09/24/2023) Medications Medication Sig Dispensed Refills Start Date End Date Status ASPIRIN EC 81 MG PO TBEC 1 TABLET DAILY 0 07/22/2014 Active acetaminophen (TYLENOL) 500 MG Tablet Take 2 Tablets by mouth every 8 hours as needed for Pain. 0 Active Diclofenac Sodium 1 % External Gel (Voltaren)Indication s:Shoulder arthritis Apply topically to affected area daily. 100 g 1 03/14/2021 Active Vitamin D3 25 MCG Oral Tablet 5 Tablets. 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 up to 3 doses in 15 minutes 150 Tablet 3 11/30/2021 Active Zoster Vac Recomb Adjuvanted 50 MCG/0.5ML Intramuscular Suspension Reconstituted (Shingrix)Indication s:Need for shingles vaccine Inject 0.5 mL into a large muscle now and repeat dose in 60 to 180 days 1 Each 1 03/10/2022 Active Additional Information Patient not taking.Reported on 06/05/2023 Hydrocortisone 2.5 % External CreamIndications:Pieter matitis Apply to affected area nightly as needed for up to a week. Take at least a 2 week break between treatments. 28 g 0 04/05/2022 Active Calcium 600-D 600-400 MG-UNIT Oral Tablet [...] the morning. 30 Tablet 5 12/19/2022 Active Ondansetron 4 MG Oral Tablet Disintegrating (Zofran)Indications: Vomiting and diarrhea Place 1 Tablet on tongue every 8 hours as needed for Nausea. dissolve on tongue. 30 Tablet 5 12/27/2022 Active Potassium Chloride Debi ER 20 MEQ Oral Tablet Extended Release Take 1 Tablet by mouth in the morning and 1 Tablet before bedtime. 60 Tablet 11 01/23/2023 Active ALPRAZolam 0.25 MG Oral Tablet (xaNAX)Indications:S tress TAKE ONE TABLET BY MOUTH THREE TIMES DAILY NEEDED FOR ANXIETY OR INSOMNIA 30 Tablet 0 01/24/2023 Active Sennosides 8.6 MG Oral Tablet Take 1 Tablet by mouth daily as needed for Constipation. 0 01/24/2023 Active Magnesium Hydroxide 400 MG/5ML Oral Suspension Take by mouth 2 times a day as needed for Constipation. 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) TAKE [...] BLOATING/GAS 100 Tablet 5 05/04/2023 Active Pancrelipase (Vhj-Jsne-Lmao) 5960-5849 UNIT Oral Capsule Delayed Release Particles (Creon [...] as of this encounter (statuses as of 09/24/2023) Active Problems Problem Noted Date Diagnosed Date [...] artery 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naknek heart with stable angina pectoris 03/18/2020 Obesity, [...] 09/13/2011 Dyslipidemia, goal LDL below 70 09/13/2011 USP current use of anticoagulant therapy 0 09/13/2011 Overview: ICD-10 update of inactive term Personal history of malignant neoplasm of skin 0 10/19/2010 Overview: 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), R forehead BCC 01/2012, Ramon L forehead 01/2010 (Efudex) documented as of this encounter (statuses as of 09/24/2023) Resolved Problems Problem Noted Date Diagnosed Date [...] artery 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naknek heart with stable angina pectoris 11/04/2018 07/25/2022 Acute pain of right knee 11/30/2017 Hx of actinic keratosis 06/23/201507/2017 Irritable bowel syndrome 11/16/201208/2017 Abdominal pain 11/16/2012 08/04/2017 IBS (irritable bowel syndrome) 09/13/2011 02/21/2019 Anticoagulation management encounter 09/13/2011 11/04/2018 Dermatochalasis 06/22/2011 01/31/2018 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 0 12/23/2012 documented as of this encounter (statuses as of 09/24/2023) Immunizations Name Administration Dates Next Due COVID-19 mRNA, LNP-s, No Pre serve, 2-Dose Series (Easy Eye) 05/31/2021,10/20/2020,09/22/2020 Covid-19, Mrna, Lnp-s, Pf, B ivalent, 30 Mcg, IM, 12 yrs and above (Easy Eye) 05/16/2022 Pneumococcal Conjugate Vacc, 13 Valent (Prevnar) [...] Answer Date Recorded PHQ Adult Total Score 1 10/02/2022 Hunger Vital Sign Answer Date Recorded Within the past 12 months, y ou worried that your food would run out before you got the money to buy more. Never true 01/10/20 23 Within the past 12 months, t he food you bought just didn't last and you didn't have money to get more. Never true 01/09/2023 Sex and Gender Information Value Date Recorded [...] encounter Miscellaneous Notes * Telephone Encounter - Lida Nelson OSA - 09/24/2023 2:36 PM EDT Due to Medicare guidelines for Podiatry Routine Footcare & Mycotic Nail visits, we will need documented medical necessity for this patient's upcoming appointment on 10/31/23. A new referral is required every 6 months and must include documented medical necessity for Medicare to pay for these services. Please assist with placing a new referral within Epic. Please see the below link that will outline the appropriate/approved DX codes. Article - Billing and Coding: Routine Foot Care ([id number]) (cms.gov) Thank you! Podiatry Scheduling documented in this encounter Plan of Treatment Upcoming Encounters Date Type Department Care Team (Late st Contact Info) Description 10/03/2023 11:50 AM EDT Office Visit Vascular Surgery, [address] [place] [address] Zack Alcocer MD [address] [place] [address] 10/05/2023 12:30 PM EDT Nurse Only Ancillary [address] [place] [address] [place], Nurse [address] [place] [address] 10/31/2023 10:20 AM EDT Office Visit Podiatry [facility] 132 [facility] [place] [address] Viky Hughes, JENN [address] [place] [address] 11/16/2023 11:30 AM EDT Office Visit Gastroenterology [address] [place] [address] Rina Nicole CRNP [address] [place] [address] 11/20/2023 11:20 AM EDT Office Visit Family Medicine [address] [place] [phone] Shonda Fields MD [address] [place] [address] [place] [address] 12/25/2023 1:30 PM EDT Office Visit Cardiology, [facility] [address] [place] [address] Dulce Boudreaux CRNP [address] [place] [address] 02/13/2024 9:30 AM EDT Cardiac Studies Cardiology, [facility] [address] [place] [address] [facility] [place] [address] [place] [address] Health Maintenance Due Date Last Done Comments *BISPHONATE OR OTHER ACCEPTABLE MEDICATION NEEDED FOR OSTEOPOROSIS (REFER TO SMARTSET #1146) 11/25/2022 COVID-19 Vaccine ( season) 2023 05/16/2022, 05/31/2021, 10/20/2020, Additional history exists Depression Screening 10/03/2023 10/02/2022 GFR 02/21/2024 08/23/2023, 03/02, 03/12/2023, Additional history exists CKD PHOS USE SMARTSET 43770 03/13/202403/02, 03/12/2023, 03/11/2023, Additional history exists Albumin/Creatinine Ratio 05/14/2024 023, 06/27/2022, 09/02/2021, Additional history exists DTaP,Tdap,and Td Vaccines (2 - Td or Tdap) 07/06/2024 07/06/2014, 09/13/2011 CKD HGB USE SMARTSET 37733 08/23/202408/23, 03/13/2023, 03/12/2023, Additional history exists TSH 08/23/2024 08/23/2023, 06/02, 08/17/2021, Additional history exists DXA Scan 01/18/2025 01/18/2023, 0511/2020, 07/28/2013 Pneumococcal Vaccine: 65+ Years Completed 05/16/2017, 04/04/2013 VITAMIN D LEVEL ONCE IN A LIFETIME-USE SMARTSET# 92289 Completed 10/09/2022, 03/10/2022, 09/02/2021, Additional history exists [...] Documents on File Type Date 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 Advance Directives and Living Will 01/27/2023 Christiane Chong ADVANCE DIRECTIVE / LIVING WILL Power of Gis Physical Scientist 01/27/2023 POWER OF A TTORNEY Latest Code [...] Care Agent (per Health Care Power of Gis Physical Scientist document) [email or web address] - (no specific identity) First Alternate Health Care Agent (per Health Care Power of Gis Physical Scientist document) che Care Teams Speech Language Pathologist Prn Relationship Specialty Start Date End Date Shonda Fields MD [address] [place] [address] [place] [address] PCP - General Family Medicine 02/21/19 documented as of this encounter
--- OUTSIDE RECORDS SUMMARY | 2023-10-25 20:40 | External Medical Summary | Summary of Care ---
Author Name Unknown Organization [facility] Address [address] [place] [address] Phone [phone] Care Team Providers Care Nursing Educator Name Role Phone Shonda Fields MD Primary Care Prov ider Reason for Visit * Reason Comments Adult Annual Wellness Visit, Subsequent Visit Encounter Details Date Type Department Care Team (Late st Contact Info) Description 10/05/2023 12:30 PM EDT Nurse Only Ancillary [address] [place] [id number] [place] Nurse [address] [place] [id number] Adult Annual Wellness Visit, Subsequent Visit Allergies Active Allergy Reactions Criticality Noted Date [...] as of this encounter (statuses as of 10/05/2023) Medications Medication Sig Dispensed Refills Start Date End Date Status ASPIRIN EC 81 MG PO TBEC 1 TABLET DAILY 0 07/22/2014 Active acetaminophen (TYLENOL) 500 MG Tablet Take 2 Tablets by mouth every 8 hours as needed for Pain. 0 Active Diclofenac Sodium 1 % External Gel (Voltaren)Indicatio ns:Shoulder arthritis Apply topically to affected area daily. 100 g 1 03/14/2021 Active Additional Information Patient taking differently:TopicalPRN, Reported on 10/03/2023 Vitamin D3 25 MCG Oral Tablet 5 Tablets. Pt taking every other day 0 06/16/2021 Active Nitroglycerin 0.4 MG Sublingual Tablet Sublingual (Nitrostat)Indicati ons:S/P coronary artery stent placement,Coronary artery disease of [place] artery of [place] heart with stable angina pectoris (HCC) Place [...] Active amLODIPine Besylate 5 MG Oral Tablet (Norvasc)Indication s:HTN, goal below 140/90 Take 1 Tablet by mouth in the morning. 30 Tablet 5 12/19/2022 Active Potassium Chloride Debi ER 20 MEQ Oral Tablet Extended Release Take 1 Tablet by mouth in the morning and 1 Tablet before bedtime. 60 Tablet 11 01/23/2023 Active Additional Information Patient not taking.Reported on 10/03/2023 ALPRAZolam 0.25 MG Oral Tablet (xaNAX)Indications: Stress TAKE ONE TABLET BY MOUTH THREE TIMES DAILY NEEDED FOR ANXIETY OR INSOMNIA 30 Tablet 0 01/24/2023 Active Isosorbide Mononitrate ER 60 MG Oral Tablet Extended Release 24 Hour (Imdur)Indications: Coronary artery disease of [place] artery of [place] heart with stable angina pectoris (HCC) TAKE 2 TABLETS IN THE MORNING AND 1 TABLET IN THE EVENING 270 Tablet 3 03/21/2023 Active Dicyclomine HCl 10 MG Oral Capsule (Bentyl)Indications :Gastroesophageal reflux disease without esophagitis Take 1 Capsule by mouth 4 times a day as needed for Indigestion. For abdominal pain 120 Capsule 5 03/21/2023 Active Apixaban 5 MG Oral Tablet (Eliquis) Take 1 Tablet by mouth in the morning and 1 Tablet before bedtime. 180 Tablet 3 04/20/2023 Active Levothyroxine Sodium 50 MCG Oral Tablet (Levoxyl)Indication s:Acquired hypothyroidism Take by mouth 1 Tablet in the morning. (at least 30 min prior to breakfast or other meds). 90 Tablet 1 05/04/2023 Active Simethicone 80 MG Oral Tablet ChewableIndications :Esophageal spasm CHEW 1-2 TABLETS FOUR TIMES DAILY NEEDED FOR BLOATING/GAS 100 Tablet 5 05/04/2023 Active Pancrelipase (Tgi-Grom-Qsrb) 7567-9631 UNIT Oral Capsule Delayed Release Particles (Creon 3000) Take 3 Capsules by mouth in the morning and 3 Capsules at noon and 3 Capsules in the evening. Take with meals. 270 Capsule 5 05/08/2023 Active Metoprolol Succinate ER 50 MG Oral Tablet Extended Release 24 Hour (toPROL XL)Indications:Paro xysmal atrial fibrillation (HCC) Take 1.5 Tablets by mouth in the morning and 1.5 Tablets before bedtime. 275 Tablet 3 06/05/2023 Active Sertraline HCl 100 MG Oral Tablet (Zoloft)Indications :Adjustment disorder with anxious mood Take 1 Tablet by mouth in the morning. 30 Tablet 5 08/15/2023 Active Zoster Vac Recomb Adjuvanted 50 MCG/0.5ML Intramuscular Suspension Reconstituted (Shingrix)Indicatio ns:Need for shingles vaccine Inject 0.5 mL into a large muscle now and repeat dose in 60 to 180 days 1 Each 1 03/10/2022 10/05/19 24 Discontinu ed(Medicat ion List Clean Up) Hydrocortisone 2.5 % External CreamIndications:De rmatitis Apply to affected area nightly as needed for up to a week. Take at least a 2 week break between treatments. 28 g 0 04/05/2022 10/05/19 24 Discontinu ed(Medicat ion List Clean Up) Ondansetron 4 MG Oral Tablet Disintegrating (Zofran)Indications :Vomiting and diarrhea Place 1 Tablet on tongue every 8 hours as needed for Nausea. dissolve on tongue. 30 Tablet 5 12/27/2022 10/05/19 24 Discontinu ed(Medicat ion List Clean Up) Sennosides 8.6 MG Oral Tablet Take 1 Tablet by mouth daily as needed for Constipation. 0 01/24/2023 10/05/19 24 Discontinu ed(Medicat ion List Clean Up) Magnesium Hydroxide 400 MG/5ML Oral Suspension Take by mouth 2 times a day as needed for Constipation. 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), R forehead BCC 01/2012, Ramon L forehead 01/2010 (Efudex) documented as of this encounter (statuses as of 10/05/2023) Resolved Problems Problem Noted Date Diagnosed Date [...] artery 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[place] heart with stable angina pectoris 11/04/2018 07/25/2022 Acute pain of right knee 11/30/2017 Hx of actinic keratosis 06/23/2015 06/0 07/2017 Irritable bowel syndrome 11/16/201208/2017 Abdominal pain 11/16/2012 08/04/2017 IBS (irritable bowel syndrome) 09/13/2011 02/21/2019 Anticoagulation management encounter 09/13/2011 11/04/2018 Dermatochalasis 06/22/2011 01/31/2018 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 0 12/23/2012 documented as of this encounter (statuses as of 10/05/2023) Immunizations Name Administration Dates Next Due COVID-19 mRNA, LNP-s, No Pre serve, 2-Dose Series (GiftLauncher) 05/31/2021,10/20/2020,09/22/2020 Covid-19, Mrna, Lnp-s, Pf, B ivalent, [...] on file documented as of this encounter Last Filed Vital Signs Vital Sign Reading Time Taken Comments Blood Pressure 128/74 10/05/2023 1:03 PM EDT Pulse 95 10/05/2023 1:03 PM EDT Temperature 35.9 C (96.6 F) 10/05/2023 1:03 PM ED T Respiratory Rate - - Oxygen Saturation 94% 10/05/2023 1:03 PM EDT Inhaled Oxygen Concentration - - Weight 77.6 kg (171 lb) 10/05/2023 1:03 PM EDT Height 170.2 cm (5' 7") 10/05/2023 1:03 PM EDT Body Mass Index 26.78 10/05/2023 1:03 PM EDT documented in this encounter Functional Status Functional Status Response [...] this encounter Patient Instructions * Patient Instructions* Fiona Joshua RN - 10/05/2023 12:52 PM EDT Patient Instructions - Fall Prevention (This education is for all patients over 65 regardless of symptoms) Remember to take your current medications as prescribed. In order to prevent falls, you are encouraged to: Exercise Utilize assistive/adaptive devices Avoid multifocal lenses when walking Avoid hazards in home Maintain a regular toileting schedule Any questions please contact our office. Preventing Falls in the Home (This education is for all patients over 65 regardless of symptoms) As you get older, falls are more likely. Thats because your reaction time slows. Your muscles and joints may also get stiffer, making them less flexible. Illness, medications, and vision changes can also affect your balance. A fall could leave you unable to live on your own. To make your home safer, follow these tips: Floors Put nonskid pads under area rugs Remove throw rugs Replace worn floor coverings Tack carpets firmly to each step on carpeted stairs. Put nonskid strips on the edges of uncarpeted stairs Keep floors and stairs free of clutter and cords Arrange furniture so there are clear pathways Clean up any spills right away Bathrooms Install grab bars in the tub or shower Apply nonskid strips or put a nonskid rubber mat in the tub or shower Sit on a bath chair to bathe Use bathmats with nonskid backing Lighting Keep a flashlight in each room Put a nightlight along the pathway between the bedroom and the bathroom Ron Patient Education Copyright 2008 - 2010 Ron except where otherwise noted Preventing Falls: Exercises to Improve Balance, Flexibility, Strength, and Staying Power (This education is for all patients over 65 regardless of symptoms) Certain types of exercises may help make you less likely to fall. Try the ones below. Or do other exercises that your healthcare provider suggests. Depending on your health, you may need to start slowly. Dont let that stop you. Even small amounts of exercise can help you. Be sure to talk to yourhealthcare provider before starting any exercise program. Improve Balance Many types of exercise can help improve balance. Brain chi and yoga are good examples. Heres another one to try. You can do it anytime and almost anywhere. Stand next to a counter or solid support. Push yourself up onto your tiptoes. Hold for 5 seconds. If you start to lose your balance, hold on to the counter. Rest and repeat 5 times. Work up to holding for 20 to 30 seconds, if you can. Increase Flexibility Being more flexible makes it easier for you to move around safely. Try exercises like the seated hamstring stretch. Sit in a chair and put one foot on a stool. Straighten your leg and reach with both hands down either side of your leg. Reach as far down your leg as you can. Hold for about 20 seconds. Go back to the starting position. Then repeat 5 times. Switch legs. Build Strength Resistance exercises help build strength. You can do them without equipment. Or you can use weights, elastic bands, or special machines. One such exercise is called the biceps curl. You can hold a 1 pound weight or even a can of soup. Do this exercise at least 3 times a week. Strive for everyday. Sit up straight in a chair. Keep your elbow close to your body and your wrist straight. Bend your arm, moving your hand up to your shoulder. Then slowly lower your arm. Repeat 5 times. Switch to the other arm. Build Your Staying Power Aerobic exercises make your heart and lungs stronger so you can keep moving longer. Walking and swimming are two of the best types of exercises you can do. Using a stationary bike is great, too. Find an aerobic exercise that you enjoy. Start slowly and build up. Even 5 minutes is helpful. Aimfor a goal of 30 minutes, at least 3 times a week. You dont have to do 30 minutes in one session. Break it up and walk a little throughout the day. More Helpful Tips Start easy. Slowly work up to doing more. Talk with your healthcare provider about the best exercises for you. Call senior centers or health clubs about exercise programs. If needed, have a family member watch you walk every so often to check your stability. Exercise with a friend. Choose an activity you both enjoy. Try exercises that you can do anytime, anywhere. Here are two examples. Have someone with you when you first try these: Practice walking by placing one foot right in front of the other. Stand up and sit down 10 times. Repeat this throughout the day. Ron Patient Education Copyright 2009 - 2010 Ron except where otherwise noted. Preventing Falls: Moving Safely Using a Cane or Walker (This education is for all patients over 65 regardless of symptoms) Keep the cane away from your feet so you dont trip. A walking aid, such as a cane or walker, can help you stay more independent and avoid falls. Remember to keep your walking aid within easy reach when youre in a chair or in bed. And learn how to use it safely so you dont injure yourself. Using a Cane If you have a stronger side, hold the cane on that side. Get your balance. Move the cane and your weaker leg forward. Support your weight on both the cane and your weaker side. Step with your stronger leg. Start again from step 1. If youre using a folding walker, be sure you know how to lock it open. Check that its locked open before each use. Using a Walker Roll the walker (or lift it, if youre using one without wheels) forward about 12 inches. Step forward with your weaker leg first. Use the walker to help keep your balance. Bring your other foot forward to the center of the walker. Start again from step 1. Helpful Tips Check with your healthcare provider about the right walking aid to use. Ask about a walker with a seat attached. Check the tips of your cane or walker to make sure they have nonskid covers. Move slowly from room to room. Dont cuevas. Sit down to get dressed. Use a karolina pack or backpack to keep your hands free. Get help for jobs that mean climbing, even on a stepstool. [employer] Patient Education Copyright 2008 - 2010 Kaybus except where otherwise noted. Urinary Incontinence Plan of Care Documentation: (This education is for all patients over 65 regardless of symptoms) Current medications reconciled. Patient encouraged to: Practice kegal exercises Provide education materials Use the restroom every 2 hours throughout the day Limit caffeine, alcohol, spicy foods and acidic foods Keep a bladder diary Limit fluid intake 3-4 hours before bed Lose weight Prevent constipation Take fluid pills at a time when you can get to the bathroom quickly Control sugar better if diabetic Limit fluid intake to 60 oz. per day Wear support stockings (TEDs)if you have edema Fiona Joshua RN 10/05/2023 Kegel Exercises Kegel exercises dont require special clothing or equipment. Theyre easy to learn and simple to do. And if you do them right, no one can tell youre doing them, so they can be done almost anywhere. Your doctor, nurse, or physical therapist can answer any questions you have and help you get started. A Weak Pelvic Floor The pelvic floor muscles may weaken due to aging, and vaginal childbirth, injury, surgery, chronic cough, or lack of exercise. If the pelvic floor is weak, your bladder and other pelvic organs may sag out of place. The urethra may also open too easily and allow urine to leak out. Kegel exercises can help you strengthen your pelvic floor muscles so they can better support the pelvic organs and control urine flow. How Kegel Exercises Are Done Try each of the Kegel exercises described below. When youre doing them, try not to move your leg, buttock, or stomach muscles. While youre urinating, try to stop the flow of urine. Start and stop it as often as you can. Contract as if you were stopping your urine stream, but do it when youre not urinating. Tighten your rectum as if trying not to pass gas. Contract your anus, but dont move your buttocks. Helpful Hints Do your Kegels as often as you can. The more you do them, the faster youll feel the results. Pick an activity you do often as a reminder. For instance, do your Kegels every time you sit down. Tighten your pelvic floor before you sneeze, get up from a chair, cough, laugh, or lift. This protects your pelvic floor from injury and can help prevent urine leakage. Try to hold each Kegel for a slow count to five. You probably wont be able to hold them for thatlong at first, but keep practicing. It will get easier as your pelvic floor gets stronger. Eventually, special weights that you place in your vagina may be recommended to help make your Kegels even more effective. Ron Patient Education Copyright 2008 - 2010 Ron except where otherwise noted. Here are some helpful tips for your urinary incontinence: (This education is for all patients over 65 regardless of symptoms) Practice Kegel exercises Use the restroom every 2 hours throughout the day Limit caffeine, alcohol, spicy foods, and acidic foods Keep a bladder diary Limit fluid intake 3-4 hours before bed Lose weight Prevent constipation Take fluid pills at a time when can get to the bathroom quickly Control sugar better if diabetic Limit fluid intake to 60 oz. per day Any questions, please feel free to contact our office. Hi Devora, As your primary care physician, I know that regular visits with my patients who have several chronic conditions can go a long way in helping you stay healthy. Many times, the clinic team and I are in touch with you and/or other care team members between office visits to adjust medications, discuss any changes in your health, and review our care plan to make sure it is still meeting your needs. I am dedicated to helping you take a more active role in your overall care. It is important that there are resources available to you, so I created a personalized plan of care with a Health Calendar for you, which is included on the next page of this letter. Below is a list that summarizes your electronic health record: Health Maintenance Due: Health Maintenance Due Topic Date Due *BISPHONATE OR OTHER ACCEPTABLE MEDICATION NEEDED FOR OSTEOPOROSIS (REFER TO SMARTSET #1146) Never done COVID-19 Vaccine ( season) 2023 Current Medication List: (as of Visit date not found (in office), Visit date not found (telemedicine) ) Current Outpatient Medications Medication Sig Dispense Refill [...] (Nitrostat) Place under the tongue 1 Tablet every 5 minutes as needed for Pain, Chest. up to 3 doses in 15 minutes 150 Tablet 3 Cholestyramine 4 GM Oral Packet (Questran) Take 1 Packet by mouth every other day. Mixed with liquid. 90 Packet 1 amLODIPine Besylate 5 MG Oral Tablet (Norvasc) Take 1 Tablet by mouth in the morning. 30 Tablet5 ALPRAZolam 0.25 MG Oral Tablet (xaNAX) TAKE ONE TABLET BY MOUTH THREE TIMES DAILY NEEDED FORANXIETY OR INSOMNIA 30 Tablet 0 Isosorbide Mononitrate ER 60 MG Oral Tablet Extended Release 24 Hour (Imdur) TAKE 2 TABLETS IN THE MORNING AND 1 TABLET IN THE EVENING 270 Tablet 3 Dicyclomine HCl 10 MG Oral Capsule (Bentyl) Take 1 Capsule by mouth 4 times a day as needed forIndigestion. For abdominal pain 120 Capsule 5 Apixaban [...] DAILY NEEDED FOR BLOATING/GAS 100 Tablet 5 Pancrelipase (Hhh-Ffpk-Xohz) 2958-3267 UNIT Oral Capsule Delayed Release Particles (Creon 3000)Take 3 Capsules by mouth in the morning and 3 Capsules at noon and 3 Capsules in the evening. Take with meals. 270 Capsule 5 Metoprolol Succinate ER 50 MG Oral Tablet Extended Release 24 Hour (toPROL XL) Take 1.5 Tabletsby mouth in the morning and 1.5 Tablets before bedtime. 275 Tablet 3 Sertraline HCl 100 MG Oral Tablet (Zoloft) Take 1 Tablet by mouth in the morning. 30 Tablet 5 Calcium 600-D 600-400 MG-UNIT Oral Tablet Take 1 Tablet by mouth in the morning. In the morning.. (Patient not taking: Reported on 10/03/2023) Potassium Chloride Debi ER 20 MEQ Oral Tablet Extended Release Take 1 Tablet by mouth in the morning and 1 Tablet before bedtime. (Patient not taking: Reported on 10/03/2023) 60 Tablet 11 No current facility-administered medications for this visit. Current List of Allergies: (as of Visit date not found (in office), Visit date not found (telemedicine) ) Review of patient's allergies indicates: Allergen Reactions Iodinated Contrast Media Anaphylaxis Ultravist dye Prednisone Other reaction(s): GI PAIN-LED TO PANCREATITIS Rosiglitazone Other reaction(s): BLOOD CLOTS Anesthetic Ether [Ether] Some type of anesthesia during EGD on 12/10/2015. Crestor [Rosuvastatin Calcium] Muscle pain Lipitor [Atorvastatin Calcium] Muscle pain Lisinopril Cough Loratadine nauseous Losartan Other reaction(s): NAUSEA AND VOMITING Prednisone [Prednisone] "bad reaction" anaphylaxis and perhaps pancreatitis Ranitidine Other reaction(s): NAUSEA AND VOMITING,ACHY Zetia [Ezetimibe] Muscle pain Most Recent Lab Results: Results for orders placed or performed in visit on 08/23/23 TSH WITH FREE T4 IF INDICATED Result Value Ref Range TSH 3.81 0.27 - 4.20 uIU/mL COMPREHENSIVE METABOLIC PANEL Result Value Ref Range BUN 16 6 - 20 mg/dL Creatinine 0.9 0.5 - 1.0 mg/dL Estimated Glomerular Filtration Rate 67 >=60 mL/min Sodium 140 135 - 146 mmol/L Potassium 3.5 3.5 - 5.1 mmol/L Chloride 103 98 - 107 mmol/L CO2 27 22 - 32 mmol/L Anion Gap 10 7 - 15 mmol/L Glucose 147 (H) 70 - 120 mg/dL Albumin 3.9 3.8 - 5.0 g/dL AST 26 10 - 35 U/L Alkaline Phosphatase 133 (H) 35 - 130 U/L Bilirubin, Total 0.5 <=1.2 mg/dL Calcium 9.0 8.4 - 10.2 mg/dL Protein 6.0 6.0 - 8.3 g/dL ALT 26 10 - 35 U/L CBC Result Value Ref Range WBC 5.48 4.00 - 10.80 K/uL RBC 4.35 3.85 - 5.15 M/uL HGB 12.6 12.0 - 15.3 g/dL HCT 39.3 36.0 - 45.2 % MCV 90.3 81.5 - 97.5 fL MCH 29.0 27.0 - 34.0 pg MCHC 32.1 32.0 - 36.0 g/dL RDW 13.5 11.5 - 15.5 % PLT 203 140 - 400 K/uL MPV 12.1 6.6 - 11.1 fL nRBCs 0 <=0 /100 WBCs MYCODE SST1 Result Value Ref Range MyCode Specimen Freezing of extracted DNA, whole blood and/or serum. MYCODE SST2 Result Value Ref Range MyCode Specimen Freezing of extracted DNA, whole blood and/or serum. *Note: Due to a large number of results and/or encounters for the requested time period, some results have not been displayed. A complete set of results can be found in Results Review. Sincerely, Shonda Chakraborty MD 10/05/2023 [facility] Calendar (as of Visit date not found (in office), Visit date not found (telemedicine) ) Care needs Care needs Last completed Due next Discuss medication for ostoporosis --- Never done COVID-19 Vaccine () 05/16/2022 03/02/2023 Kidney Function Test 08/23/2023 02/21/2024 Urine albumin/creatinine test 05/14/2023 05/14/2024 Diphtheria, tetanus & pertussis vaccines (2 - Td or Tdap) 07/06/2014 07/06/2024 Yearly thyroid level check 08/23/2023 08/23/2024 Bone Density 01/18/2023 01/18/2025 As you look over the recommended services, be sure to check with your insurance company to determine what's covered. DoYouRemember is a great tool that helps you review your medical record online, including test results, doctor notes and your health summary. You can also schedule appointments with me and other members of your care team, request prescription refills and ask for advice related to your medical conditions at [email or web address]. documented in this encounter Progress Notes * Fiona Joshua RN - 10/05/2023 12:52 PM EDT Urinary Incontinence Plan of Care Documentation: (This education is for all patients over 65 regardless of symptoms) Current medications reconciled. Patient encouraged to: Practice kegal exercises Provide education materials Use the restroom every 2 hours throughout the day Limit caffeine, alcohol, spicy foods and acidic foods Keep a bladder diary Limit fluid intake 3-4 hours before bed Lose weight Prevent constipation Take fluid pills at a time when you can get to the bathroom quickly Control sugar better if diabetic Limit fluid intake to 60 oz. per day Wear support stockings (TEDs)if you have edema Fiona Joshua RN 10/05/2023AD8 Dementia Screening Interview Person answering questions: patient Remember, "Yes, a change" indicates that there has been a change in the last several years caused by cognitive (thinking and memory) problems 1. Problems with judgement (eg: problems making decisions, bad financial decisions, problems with thinking). Yes (1) 2. Less interest in hobbies/activities. No (0) 3. Repeats the same things over and over (questions, stories, or statements). No (0) 4. Trouble learning how to use a tool, appliance, or gadget (eg: VCR, computer, microwave, remote control). No (0) 5. Forgets correct month or year. No (0) 6. Trouble handling complicated financial affairs (eg: balancing checkbook, income taxes, paying bills). No (0) 7. Trouble remembering appointments. No (0) 8. Daily problems with thinking and/or memory. Yes (1) TOTAL AD8: 1 - AD8 Dementia Screening Score The final score is a sum of the number items marked "Yes, A Change". 0 - 1: Normal cognition; 2 or greater: Cognitive impairments is likely to be present - further testing required Adult Annual Wellness Visit: Milena Lozoya is a 83 year old female who presents for an Adult Annual Wellness Visit. Depression Screening: Did the patient complete the screening questionnaire for Depression? Yes Is the patient's total score for Depression 15 or greater? Yes, consult with physician prior to patient leaving the office. Did the patient answer positively to the suicide question? No, no further intervention needed, unless requested by patient. In general, compared to other people your age, what would you say that your health is? Fair Ht Readings from Last 1 Encounters: 10/05/23 1.702 m (5' 7") Wt Readings from Last 1 Encounters: 10/05/23 77.6 kg (171 lb) Body Mass Index: BMI Less than 30 Body mass index is 26.78 kg/m. BP Readings from Last 1 Encounters: 10/05/23 128/74 Medical/Surgical/Family History Reviewed: Yes Past Medical History: Diagnosis Date Atrial fibrillation ([facility]) 04/29/2012 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 02/23/2010 CAD (coronary artery disease), [place] coronary artery 2006 Cardiac pacemaker in situ 2006 Coronary bypass graft mechanical complication DVT (deep venous thrombosis) ([facility]) 2009 multiple Dyslipidemia, goal LDL below 100 09/13/2011 Esophageal reflux 09/13/2011 HTN, goal below 140/90 09/16/2011 HX-SKIN MALIGNANCY NEC 10/19/2010 Hyperlipemia Hypothyroid 2010 Hypothyroidism 09/13/2011 IBS (irritable bowel syndrome) 09/13/2011 IBS (irritable bowel syndrome) 09/13/2011 NSTEMI (non-ST elevated myocardial infarction) ([facility]) 02/21/2019 Other pulmonary embolism and infarction 2008 S/P coronary artery stent placement 2005 Past Surgical History: Procedure Laterality Date BX BREAST PERCUT W/O IMAGE Left 09/21/2017 09/21/2017 left breast core biopsy - office procedure by Dr. Josh Su dx left breast , upper outer portion, core bx dx core of mature adipose tissue with few rare epithelial cells and minute amount of necrosis . No breast ducts of lobules are present in the specimen CABG, ARTERIAL, THREE 2006 DEXA SCAN/BONE MINERAL AXIAL 01/18/2023 forearm T -5.6, Lumbar T -2.3, Femur T -3.2 high risk bisphonate recomended EGD, FLEXIBLE,W/ENDOSCOPIC US 12/07/2017 fatty liver, IPMN, gastritis / [facility] EGD, FLEXIBLE,W/ENDOSCOPIC US 05/07/2020 gastritis, fatty liver, mucinous pancreatic cyst / [facility] EGD, W/ENDOSCOPIC US 05/05/2013 UPPER GI ENDOSCOPY ENDOSCOPIC ULTRASOUND performed by Magdaleno Wiley DO at [facility] EGD, W/ENDOSCOPIC US 11/19/2013 fatty liver, dilation of CBD, cystic lesions of pancreatic head, body, and tail. repeat in 6 months/ESOPHAGOGASTRODUODENOSCOPY (EGD), FLEXIBLE, TRANSORAL, ENDOSCOPIC ULTRASOUND performed by Magdaleno Wiley DO at ENDOSCOPY [facility] EGD, W/ENDOSCOPIC US N/A 10/07/2014 mucinous pancreatic cysts. repeat in 1 yr/ESOPHAGOGASTRODUODENOSCOPY (EGD), FLEXIBLE, TRANSORAL, ENDOSCOPIC ULTRASOUND performed by Magdaleno Wiley DO at [facility] EGD, W/ENDOSCOPIC US 12/10/2015 mucinous tumor of the pancreas, repeat 1 yr/[facility] EXPLORE PARATHYROID GLANDS N/A 03/23/2020 PARATHYROIDECTOMY performed by Tom Rabago DO at [facility] EYELID SURGERY PROCEDURE NEC 06/22/2011 Dermatochalasis both eyes upper lids, Dr. Tao KNEE ARTHROSCOPY, DIAGNOSTIC Knee Arthroscopy LAPAROSCOPY; CHOLECYSTECTOMY MISCELLANEOUS ORDER ([facility] ONLY) enterocele repair, ? bladder sling MISCELLANEOUS ORDER ([facility] ONLY) hemorrhoidectomy PARTIAL REMOVAL OF PANCREAS N/A 03/07/2023 PANCREATECTOMY DISTAL SUBTOTAL performed by Trip Leggett MD at OR [facility] REMOVAL OF APPENDIX age 9 or 10 REMOVE CATARACT, INSERT LENS PROSTH 2007 both eyes REMOVE TONSILS & ADENOIDS, UNDER 12 age 9 SHOULDER ARTHROSCOPY, DX Shoulder Arthroscope,Diagnostic TOTAL HYSTERECTOMY 1972 also BSO Family History Problem Relation Age of Onset Stroke Mother Neurological Disorder Mother seizures Other (Other) Father in WWII No Past Hx Father trauma Has patient ever had cancer? History of cancer, type: skin ca and pancreases and location: patient did refuse treatment Social History Tobacco Use Smoking status: Never Smokeless tobacco: Never Substance Use Topics Alcohol use: No Vaping/E-Cigarette Use Vaping/E-Cigarette Use Never User Vaping/E-Cigarette Substances Vaping/E-Cigarette Devices Tobacco/Alcohol screening completed today? Yes Hospital Care: Admissions (within the last year): Hospital, Location: [facility] and [place] [facility] within 30 days: No Does the patient have an Advance Directives/Living Will? Yes Last Physical Exam: Last physical exam: 08/2023 Does patient see primary provider regularly? Yes Does patient see other providers? Yes, Specialist Patient Care Team updated? Yes Review of patient's allergies indicates: Allergen Reactions Iodinated Contrast Media Anaphylaxis Ultravist dye Prednisone Other reaction(s): GI PAIN-LED TO PANCREATITIS Rosiglitazone Other reaction(s): BLOOD CLOTS Anesthetic Ether [Ether] Some type of anesthesia during EGD on 12/10/2015. Crestor [Rosuvastatin Calcium] Muscle pain Lipitor [Atorvastatin Calcium] Muscle pain Lisinopril Cough Loratadine nauseous Losartan Other reaction(s): NAUSEA AND VOMITING Prednisone [Prednisone] "bad reaction" anaphylaxis and perhaps pancreatitis Ranitidine Other reaction(s): NAUSEA AND VOMITING,ACHY Zetia [Ezetimibe] Muscle pain Immunization History Administered Date(s) Administered COVID-19 mRNA, LNP-s, No Preserve, 2-Dose Series ([employer]) 09/22/2020, 10/20/2020, 05/31/2021 Covid-19, Mrna, Lnp-s, Pf, Bivalent, 30 Mcg, IM, 12 yrs and above (Pfizer) 05/16/2022 Pneumococcal Conjugate Vacc, 13 Valent (Prevnar) 05/16/2017 Pneumococcal Polysaccharide PPV23 (Pneumovax) 04/04/2013 Season Influenza, Quad, PF, Adjuvanted, 65+ Yrs, IM (FLUAD) 04/08/2020 Seasonal Influenza, Quadrivalent Hd (Fluzone Hd) 05/12/2021, 06/09/2022, 08/15/2023 Seasonal Influenza, Split, IIV3, With Preserve, Inj 04/01/2011 Seasonal Influenza, Trivalent, Adjuvanted, 65+ yrs 06/15/2019 TD, Preservative Free 09/13/2011 TDAP (age 10 and older)(Boostrix) 07/06/2014 Current Outpatient Medications Medication Sig Dispense Refill [...] doses in 15 minutes 150 Tablet 3 Cholestyramine 4 GM Oral Packet (Questran) Take 1 Packet by mouth every other day. Mixed with liquid. 90 Packet 1 amLODIPine Besylate 5 MG Oral Tablet (Norvasc) Take 1 Tablet by mouth in the morning. 30 Tablet 5 ALPRAZolam 0.25 MG Oral Tablet (xaNAX) TAKE [...] 1-2 TABLETS FOUR TIMES DAILY NEEDED FOR BLOATING/QOP315 Tablet 5 Pancrelipase (Nlp-Zory-Svdn) 9380-6322 UNIT Oral Capsule Delayed Release Particles (Creon [...] mouth in the morning. 30 Tablet 5 Calcium 600-D 600-400 MG-UNIT Oral Tablet Take 1 Tablet by mouth in the morning. In the morning.. (Patient not taking: Reported on 10/03/2023) Potassium Chloride Debi ER 20 MEQ Oral Tablet Extended Release Take 1 Tablet by mouth in the morning and 1 Tablet before bedtime. (Patient not taking: Reported on 10/03/2023) 60 Tablet 11 No current facility-administered medications for this visit. 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 Pancreatic cyst K86.2 Paroxysmal atrial fibrillation (HCC) I48.0 Old myocardial infarction I25.2 Adverse reaction to statin medication T46.6X5A Adrenal insufficiency ([facility]) E27.40 Tremors of nervous system R25.1 Hyperparathyroidism, primary ([facility]) E21.0 Obesity, Class I, BMI 30.0-34.9 (see actual BMI) E66.9 Adjustment disorder with anxious mood F43.22 Coronary artery disease of c[place] artery of caddo heart with stable angina pectoris ([facility]) I25.118 Hypertensive kidney disease with stage 3a chronic kidney disease I12.9, N18.31 Statin intolerance Z78.9 Esophageal spasm K22.4 High risk for fracture due to osteoporosis by DEXA scan M81.0 Chronic kidney disease, stage 3a (HCC) N18.31 Greater trochanteric bursitis of left hip M70.62 Senile osteoporosis M81.0 Trigger middle finger of left hand M65.332 Carotid stenosis, non-symptomatic, bilateral I65.23 Aortic ectasia, abdominal ([facility]) I77.811 Subclavian artery stenosis, right ([facility]) I77.1 Adenocarcinoma of pancreas ([facility]) C25.9 Post-op pain G89.18 Medication Compliance: Patient is able to obtain all of her medications? Yes Patient takes medications as prescribed? Yes Patient manages own medications: Yes Patient uses a pill box? Yes, refill(s) completed by self Dental Exam: encouraged to sched Eye Screening: Yes: Every yearly encouraged Are you having trouble with hearing? Yes Do you use an assistive device to help your hearing? Yes Exercise Screening: does not exercise regularly Nutrition Assessment: Eats three meals a day Pain Screening: Are you having any pain? Yes. Pain Scale: 0 = none worse with walking Sleep Screening Tool 'STOP': Do you snore? Yes Do you feel fatigued during the day? Yes Do you wake up feeling like you haven't slept? No Have you been told you stop breathing at night? No Do you gasp for air or choke while sleeping? No Have you been told you have Sleep Apnea? No Do you have high blood pressure or are on medication(s) to control high blood pressure? Yes SCORE: If you check YES to two or more questions, make a referral for Obstructive Sleep Apnea Declines lisa referral, states its her bladder that gets her up every couple hours Patient and Caregiver Support System: Patient lives with a spouse Means of Transportation: Drives. Concerns identified are: night Patient lives in One Story - with basement stairs: 12 Community Resources: Not Applicable Functional Status and ADL Skills: Has patient ever had an amputation? No Functional Assessment: 90- Able to carry on normal activity, minor symptoms of disease Ambulation: Patient ambulates without assistive device. Independent Dressing: Gets clothes and dresses without any assistance: Independent Able to move freely in chair or bed including turning over: Independent Repositioning (bed or chair): Not applicable Transfers: Independent Toileting: Goes to bathroom, uses toilet, arranges clothes and returns without any assistance: Independent Toileting: continent of bowel and incontinent of bladder Feeding: Self Bathing: Self; tub and shower, grab bar Requires none assistance with ADLs. Instrumental ADL's: Shopping: Independent Housekeeping: Independent Handling Finances: Independent DME Vendor Name: Not Applicable Fall Risk Assessment: Can the patient demonstrate that she can stand from a sitting position? Yes Has the patient had a fall within the last 6 months? No Does the patient have a problem with her gait or balance? No Does the patient take 4 or more prescription medicines? Yes Does the patient use sedatives or narcotics? No Fall Risk Factors Present: Uses more than 4 medications Balance or gait disturbances Lower extremity weakness Visually impaired Older than age 70 Wqt-Ni-tik-Go Test: Time began at 1200. Patient stood from sitting position and walked approximately 10 feet, returned and sat down. Total time for fsy-rb-iym-go test was 10 seconds. Whg-Ed-agn-Go Test completed? Yes Gender Specific Preventative Plan: Health Maintenance Topic Date Due *BISPHONATE OR OTHER ACCEPTABLE MEDICATION NEEDED FOR OSTEOPOROSIS (REFER TO SMARTSET #1149) Never done COVID-19 Vaccine (2022-24 season) 2023 GFR 02/21/2024 CKD PHOS USE SMARTSET 71038 03/13/2024 Albumin/Creatinine Ratio 05/14/2024 DTaP,Tdap,and Td Vaccines (2 - Td or Tdap) 07/06/2024 CKD HGB USE SMARTSET 45263 08/23/2024 TSH 08/23/2024 Depression Screening 10/04/2024 DXA Scan 01/18/2025 VITAMIN D LEVEL ONCE IN A LIFETIME-USE SMARTSET# [id number] Completed Influenza Vaccine (FLU shot) Completed Pneumococcal Vaccine: 65+ Years Completed Hepatitis B Aged Out MENINGOCOCCAL (MENACTRA/MENVEO) Aged Out GARDASIL-HPV IMMUNIZATION SERIES Aged Out Zoster Vaccines Discontinued Follow Up/ Referrals/Handouts: Depression screening - completed Functional assessment - doing well, but overwhelmed at times. Daughter moved to [place] and son islocally and trying to help but sometimes makes things worse. Falls Risk screening - discussed Exercise screening - encouraged to stay active, patient is primary caregiver to with dementia Nutrition assessment -. Education Provided Pain screening - discussed arthritis pain Incontinence screening - patient does have UI, and wears a pad every day. Patient has been verbally educated on the need or importance of Cholesterol, Dexa Scan, GFR, Hemoglobin A1c, and Immunizations: covid,flu,shingrix Pt has completed the covid vaccines: No Routine general medical examination at a health care facility (Primary) Risk and functional assessment Advanced care planning/counseling discussion Patient does have ACP and there is a copy on the chart, and HCA is her daughter and forms are updated Adenocarcinoma of pancreas (HCC) -patient did have surgery in [place] 03/24, patient declines chemo and radiation Adjustment disorder with anxious mood - Med reconciliation completed and compliance discussed. - pt to continue present medications. Cardiac pacemaker in situ -patient does follow up with cardiology Chronic kidney disease, stage 3a (HCC) - Med reconciliation completed and compliance discussed. - pt to continue present medications. Component Latest Ref Rng 08/23/2023 BUN 6 - 20 mg/dL 16 Creatinine 0.5 - 1.0 mg/dL 0.9 Estimated Glomerular Filtration Rate >=60 mL/min 67 Dyslipidemia, goal LDL below 70 - Med reconciliation completed and compliance discussed. - pt to continue present medications. Lab Results Component Value Date/Time LDL (CALCULATED)-OUTSIDE LAB 285 (A) 06/19/2020 12:00 AM LDL CHOLESTEROL (CALCULATED) - [facility] 298 (H) 03/10/2022 10:38 AM LDL CHOLESTEROL (CALCULATED) - [facility] UNINTERPRETABLE RESULT 02/21/2019 01:57 PM LDL CHOLESTEROL (DIRECT MEASURE) - [facility] 240 (H) 10/09/2022 12:24 PM LDL CHOLESTEROL (DIRECT MEASURE) - [facility] 185 (H) 08/29/2019 10:49 AM LDL CHOLESTEROL (DIRECT MEASURE) - [facility] 148 (H) 05/22/2014 11:36 AM Patient states its always been extremely palomo she has tried multiple meds in the past and nothing seems to help. Esophageal reflux - Med reconciliation completed and compliance discussed. - pt to continue present medications. High risk for fracture due to osteoporosis by DEXA scan Patient unable to do meds, but continues otc meds Patient also have problems with her teeth and she will schedule an appointment. History of pulmonary embolism - Med reconciliation completed and compliance discussed. - pt to continue present medications. HTN, goal below 140/90 - Med reconciliation completed and compliance discussed. - pt to continue present medications. BP Readings from Last 3 Encounters: 10/05/23 128/74 10/03/23 138/82 08/15/23 140/84 Hyperparathyroidism, primary (HCC) -patient does want to follow up with Nursing Educator Role and Specialty Contact Info Address Start End Comments Amy Carlson MD (Endocrinology/Metabolism) [address] [facility] [address] 09/29/2021 - - Patient will call and schedule an appointment. Spoke to Berna and we are going to try to simplify things, patient willing to try pill packs from [facility] and delivery. Patient is forgetting to take some pills and having difficulty cutting the one in half. Follow Up: Return in 1 year (on 10/04/2024) for 12 month Subsequent Adult Wellness Visit. | For: 12 month Subsequent Adult Wellness Visit | Check-out note: 12 month Subsequent Adult Wellness Visit Would patient like to schedule next AWV visit? Yes Fiona Joshua RN documented in this encounter Miscellaneous Notes * ACP (Advance Care Planning) - Fiona Joshua RN - 10/05/2023 1:48 PM EDT Images from the original note were not included. Patient-centered Communication 10/05/2023 The patient/surrogate voluntarily agreed to participate in advance care planning discussion. They were advised that this is a separate service which may incur out of pocket cost in the form of copayment and/or deductibles. Location: Clinic Individual(s) present for conversation: Patient Decisions Synopsis SmartLink Most Recent Value Past ~10 years 01/09/2023 17:05 Decisions CPR decision: Declines CPR 01/09/2023 Declines CPR Additional Comments Synopsis SmartLink Most Recent Value Past ~10 years 10/05/2023 14:30 Additional Comments Additional Comments: pt does have ACP on file and copy in [place], pt daughter has moved back to [place] but she still would like her to be her HCA, and grandaugter is the first alternate. 10/05/2023 pt does have ACP on file and copy in [place], pt daughter has moved back to [place] but she still would like her to be her HCA, and grandaugter is the first alternate. Discerning What Matters Most to the Patient: Synopsis SmartLink Most Recent Value Past ~10 years 10/05/2023 14:32 Discerning What Matters Most to the Patient In their own words, patient's UNDERSTANDING of their illness is: Im doing really well after my Wipple surgery, i did refuse to have chemo and radiation. I can't be not feeling well and able to take care of my . Im 83 and have lived a good life. 10/05/2023 Im doing really well after my Wipple surgery, i did refuse to have chemo and radiation. I can't be not feeling well and able to take care of my . Im 83 and have lived a good life. Their current SYMPTOMS include: Pain;Anxiety 10/05/2023 Pain;Anxiety The patient thinks COMPLICATIONS in the future may be: More hospitalizations;More pain; 02/14/2023 Was PROGNOSIS discussed? No 02/14/2023 The patient's HOPES are: Maintain current functional abilities 10/05/2023 Maintain current functional abilities Other, patient defines as: "I want them to find out what is making me so short of breath, and fix it." 01/23/2023 The patient's FEARS/WORRIES about illness are: -- what if the cancer comes back more aggressive 10/05/2023 -- what if the cancer comes back more aggressive The patient's PRIOR EXPERIENCES: son passed recently without any will or living will, she wants to get things in place. 10/05/2023 son passed recently without any will or living will, she wants to get things in place. The patient considers these as 'UNACCEPTABLE OUTCOMES': Prolonged mechanical ventilation (define below) 10/05/2023 Prolonged mechanical ventilation (define below) Prolonged mechanical ventilation, patient defines as: pt does not wish to have anything to prolong her life 10/05/2023 pt does not wish to have anything to prolong her life Source: Content from [facility] Aligning Care With What Matters Most: Synopsis SmartLink Most Recent Value Past ~10 years 10/05/2023 14:30 Aligning Care With What Matters Most In their own words, the patient's understanding of their prognosis: compared to others my age, I feel my health is fair. 10/05/2023 compared to others my age, I feel my health is fair. Interventions/Choices: CPR 01/09/2023 Rationale for Decisions Source: Content from [facility] 16 minutes spent in direct [id number] discussion today, Fiona Joshua RN documented in this encounter Plan of Treatment Upcoming Encounters Date Type Department Care Team (Late st Contact Info) Description 10/08/2023 10:20 AM EDT Office Visit Dermatology [address] [place] [address] Park Alejandra PA-C [address] [place] [address] [place] [address] 10/31/2023 10:20 AM EDT Office Visit Podiatry [facility] [address] [place] [address] Viky Hughes, JENN [address] [place] [address] [place] [address] 11/16/2023 11:30 AM EDT Office Visit Gastroenterology [address] [place] [address] Rina Nicole CRNP [address] [place] [address] 11/20/2023 11:20 AM EDT Office Visit Family Medicine [address] [place] [id number] Shonda Fields MD [address] [place] [address] [place] [address] 12/25/2023 1:30 PM EDT Office Visit Cardiology, [facility] [address] [place] [address] Dulce Boudreaux CRNP [address] [place] [address] 02/13/2024 9:30 AM EDT Cardiac Studies Cardiology, [facility] [address] [place] [address] [facility] [address] [place] [address] 10/06/2024 12:30 PM EDT Nurse Only Ancillary [address] [place] [address] Edel, Nurse [address] [place] [address] Health Maintenance Due Date Last Done Comments *BISPHONATE OR OTHER ACCEPTABLE MEDICATION NEEDED FOR OSTEOPOROSIS (REFER TO SMARTSET #1146) 11/25/2022 COVID-19 Vaccine ( season) 2023 05/16/2022, 05/31/2021, 10/20/2020, Additional history exists GFR 02/21/2024 08/23/2023, 03/02, 03/12/2023, Additional history exists CKD PHOS USE SMARTSET 01593 03/13/202403/02, 03/12/2023, 03/11/2023, Additional history exists Albumin/Creatinine Ratio 05/14/2024 023, 06/27/2022, 09/02/2021, Additional history exists DTaP,Tdap,and Td Vaccines (2 - Td or Tdap) 07/06/2024 07/06/2014, 09/13/2011 CKD HGB USE SMARTSET [id number] 08/23/202408/23, 03/13/2023, 03/12/2023, Additional history exists TSH 08/23/2024 08/23/2023, 06/02, 08/17/2021, Additional history exists Depression Screening 10/04/2024 10/05/2023 DXA Scan 01/18/2025 01/18/2023, 05/0 11/2020, 07/28/2013 Pneumococcal Vaccine: 65+ Years Completed 05/16/2017, 04/04/2013 VITAMIN D LEVEL ONCE IN A LIFETIME-USE SMARTSET# [id number] Completed 10/09/2022, 03/10/2022, 09/02/2021, Additional history exists [...] as of this encounter Visit Diagnoses Diagnosis Routine general medical examination at a health care facility- Primary Risk and functional assessment Screening for unspecified condition Advanced care planning/counseling discussion Other specified counseling Adenocarcinoma of pancreas (HCC) Malignant neoplasm of pancreas, part unspecified Adjustment disorder with anxious mood Adjustment disorder with anxiety Cardiac pacemaker in situ Chronic kidney disease, stage 3a (HCC) Dyslipidemia, goal LDL below 70 Other and unspecified hyperlipidemia Esophageal reflux High risk for fracture due to osteoporosis by DEXA scan Osteoporosis, unspecified History of pulmonary embolism Personal history of pulmonary embolism HTN, goal below 140/90 Unspecified essential hypertension Hyperparathyroidism, primary (HCC) Primary hyperparathyroidism documented in this encounter Advance Directives Documents on File Type Date Recorded 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 Advance Directives and Living Will 01/27/2023 Christiane Chong ADVANCE DIRECTIVE / LIVING WILL Power of Executive Administrative Asst 01/27/2023 POWER OF A TTORNEY Latest Code [...] Care Agent (per Health Care Power of Executive Administrative Asst document) [email or web address] Other - (no specific identity) First Alternate Health Care Agent (per Health Care Power of Executive Administrative Asst document) [email or web address] Nursing Educator Relationship Specialty Start Date End Date Shonda Fields MD [address] [place] [address] [place] [phone] PCP - General Family Medicine 02/21/19 documented as of this encounter
--- OUTSIDE RECORDS SUMMARY | 2023-10-25 20:40 | External Medical Summary | Summary of Care ---
Author Name Unknown Organization [facility] Address [address] [place] [address] Phone [phone] Care Team Providers Care Office Machines Sales Representative Name Role Phone Shonda Fields MD Primary Care Prov ider Reason for Visit * Reason Onset Date Comments Test Results 08/16/2023 Encounter Details Date Type Department Care Team (Late st Contact Info) Description 08/16/[address] [phone] Shonda Fields MD [address] [place], [place] [address] [address] Test Results Allergies Active Allergy Reactions Criticality Noted Date [...] as of this encounter (statuses as of 08/31/2023) Medications Medication Sig Dispensed Refills Start Date [...] coronary artery stent placement,Coronary artery disease of [place] artery of [place] heart with stable angina pectoris (HCC) Place [...] 24 Hour (Imdur)Indications: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 (HCC) TAKE [...] BLOATING/GAS 100 Tablet 5 05/04/2023 Active Pancrelipase (Szj-Ecvj-Iifd) 0429-1966 UNIT Oral Capsule Delayed Release Particles (Creon [...] as of this encounter (statuses as of 08/31/2023) Active Problems Problem Noted Date Diagnosed Date [...] artery 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[place] heart with stable angina pectoris 03/18/2020 Obesity, [...] Dyslipidemia, goal LDL below 70 09/13/2011 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 0 09/13/2011 Overview: ICD-10 update of inactive term Personal history of malignant neoplasm of skin 0 10/19/2010 Overview: 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), R forehead BCC 01/2012, Ramon L forehead 01/2010 (Efudex) documented as of this encounter (statuses as of 08/31/2023) Resolved Problems Problem Noted Date Diagnosed Date [...] artery 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[place] heart with stable angina pectoris 11/04/2018 07/25/2022 Acute pain of right knee 11/30/2017 Hx of actinic keratosis 06/23/201507/2017 Irritable bowel syndrome 11/16/201208/2017 Abdominal pain 11/16/2012 08/04/2017 IBS (irritable bowel syndrome) 09/13/2011 02/21/2019 Anticoagulation management encounter 09/13/2011 11/04/2018 Dermatochalasis 06/22/2011 01/31/2018 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 * Telephone Encounter - Kelly Lennon LPN - 08/30/2023 10:31 AM EST I called pt for her nurse follow up phone call and she was asking if someone will be contacting herto schedule this CT scan, she states she hasn't heard anything yet. It looks like she no showed a couple of appts this week. She said she has a hard time with leaving her due to his dementia. * Telephone Encounter - Janki Simmons LPN - 08/16/2023 9:49 AM EST Pt aware of Note Below No further questions at this time * Telephone Encounter - Shonda Fields MD - 08/16/2023 9:18 AM EST Please call Milena and let her know her surgeon agreed we can go ahead with the follow up CT scannow. His office should be setting this up. If she doesn't hear from them wihtin a week, please haveher call us. documented in this encounter Plan of Treatment Upcoming Encounters Date Type Department Care Team (Late st Contact Info) Description 2023 2:00 PM EST [facility] [address] [place] [address] 10/03/2023 11:50 AM EDT Office Visit Vascular Surgery, [facility] [address] [facility] [place] [address] Zack Alcocer MD [address] [place] [address] 10/05/2023 12:30 PM EDT Nurse Only Ancillary [address] [place] [address] [place], Nurse [address] [place] [address] 10/31/2023 10:20 AM EDT Office Visit Podiatry [facility] [address] [facility] [place] [address] Viky Hughes, DPMeghan [address] [place] [address] 11/16/2023 11:30 AM EDT Office Visit Gastroenterology [address] [place] [address] Rina Nicole CRNP 132 [facility] [place] [address] 11/20/2023 11:20 AM EDT Office Visit Family Medicine [address] [place] [phone] Shonda Fields MD [address] [place] [address] [place] [address] 12/25/2023 1:30 PM EDT Office Visit Cardiology, [facility] [address] [facility] [place] [address] Dulce Boudreaux CRNP [address] [place] [address] 02/13/2024 9:30 AM EDT Cardiac Studies Cardiology, [facility] [address] [place] [address] [place], Pacer [facility] [address] [place] [address] Health Maintenance Due Date Last Done Comments *BISPHONATE OR OTHER ACCEPTABLE MEDICATION NEEDED FOR OSTEOPOROSIS (REFER TO SMARTSET #1146) 11/25/2022 COVID-19 Vaccine ( season) 2023 05/16/2022, 05/31/2021, 10/20/2020, Additional history exists Depression Screening 10/03/2023 10/02/2022 GFR 02/21/2024 08/23/2023, 03/02, 03/12/2023, Additional history exists CKD PHOS USE SMARTSET 78021 03/13/202403/02, 03/12/2023, 03/11/2023, Additional history exists Albumin/Creatinine Ratio 05/14/2024 023, 06/27/2022, 09/02/2021, Additional history exists DTaP,Tdap,and Td Vaccines (2 - Td or Tdap) 07/06/2024 07/06/2014, 09/13/2011 CKD HGB USE SMARTSET 32625 08/23/202408/23, 03/13/2023, 03/12/2023, Additional history exists TSH 08/23/2024 08/23/2023, 06/02, 08/17/2021, Additional history exists DXA Scan 01/18/2025 01/18/2023, 11/2020, 07/28/2013 Pneumococcal Vaccine: 65+ Years Completed 05/16/2017, 04/04/2013 VITAMIN D LEVEL ONCE IN A LIFETIME-USE SMARTSET# 43902 Completed 10/09/2022, 03/10/2022, 09/02/2021, Additional history exists [...] Documents on File Type Date Recorded 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
--- OUTSIDE RECORDS SUMMARY | 2023-10-25 20:40 | External Medical Summary | Summary of Care ---
Author Name Unknown Organization [facility] Address [address] [place] [address] Phone [phone] Care Team Providers Care Ramp Service Employee Name Role Phone Shonda Fields MD Primary Care Prov ider Reason for Visit * Reason Onset Date Comments Referral Requested by Specialist 09/24/2023 Encounter Details Date Type Department Care Team (Late st Contact Info) Description 09/24/2023 Telephone Podiatry [facility] 132 [facility] [place] [address] Viky Hughes, DPMeghan [address] [facility], [place] [id number] Referral Requested by Specialist Allergies Active Allergy [...] coronary artery stent placement,Coronary artery disease of [place] artery of [place] heart with stable angina pectoris (HCC) Place [...] 24 Hour (Imdur)Indications: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 (HCC) TAKE [...] BLOATING/GAS 100 Tablet 5 05/04/2023 Active Pancrelipase (Kth-Othh-Vdcg) 6676-2177 UNIT Oral Capsule Delayed Release Particles (Creon [...] artery 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[place] heart with stable angina pectoris 03/18/2020 Obesity, [...] 09/13/2011 Dyslipidemia, goal LDL below 70 09/13/2011 intermediate current use of anticoagulant therapy 0 09/13/2011 [...] artery 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[place] heart with stable angina pectoris 11/04/2018 07/25/2022 [...] mRNA, LNP-s, No Pre serve, 2-Dose Series ([employer]) 05/31/2021,10/20/2020,09/22/2020 Covid-19, Mrna, Lnp-s, Pf, B ivalent, 30 Mcg, IM, 12 yrs and above ([employer]) 05/16/2022 Pneumococcal Conjugate Vacc, 13 Valent (Prevnar) [...] - Billing and Coding: Routine Foot Care ([id number]) (cms.gov) Thank you! Podiatry Scheduling documented in this encounter Plan of Treatment Upcoming Encounters Date Type Department Care Team (Late st Contact Info) Description 10/03/2023 11:50 AM EDT Office Visit Vascular Surgery, [address] [place] [address] Zack Alcocer MD [address] [place] [address] 10/05/2023 12:30 PM EDT Nurse Only Ancillary [address] [place] [address] [place], Nurse [address] [place] [address] 10/31/2023 10:20 AM EDT Office Visit Podiatry [facility] 132 [facility] [place] [address] Viky Hughes, JENN [address] [place] [address] 11/16/2023 11:30 AM EDT Office Visit Gastroenterology [address] [place] [address] Rina Nicole CRNP [address] [place] [address] 11/20/2023 11:20 AM EDT Office Visit Family Medicine [address] [place] [address] Shonda Fields MD [address] [place] [address] [place] [address] 12/25/2023 1:30 PM EDT Office Visit Cardiology, [facility] [address] [place] [address] Dulce Boudreaux CRNP [address] [place] [address] 02/13/2024 9:30 AM EDT Cardiac Studies Cardiology, [facility] [address] [place] [address] [facility] [address] [place] [address] Health Maintenance Due Date Last Done Comments *BISPHONATE OR OTHER ACCEPTABLE MEDICATION NEEDED FOR OSTEOPOROSIS (REFER TO SMARTSET #1146) 11/25/2022 COVID-19 Vaccine ( season) 2023 05/16/2022, 05/31/2021, 10/20/2020, Additional history exists Depression Screening 10/03/2023 10/02/2022 GFR 02/21/2024 08/23/2023, 03/02, 03/12/2023, Additional history exists CKD PHOS USE SMARTSET 14849 03/13/202403/02, 03/12/2023, 03/11/2023, Additional history exists Albumin/Creatinine Ratio 05/14/2024 023, 06/27/2022, 09/02/2021, Additional history exists DTaP,Tdap,and Td Vaccines (2 - Td or Tdap) 07/06/2024 07/06/2014, 09/13/2011 CKD HGB USE SMARTSET 93514 08/23/202408/23, 03/13/2023, 03/12/2023, Additional history exists TSH 08/23/2024 08/23/2023, 06/02, 08/17/2021, Additional history exists DXA Scan 01/18/2025 01/18/2023, 0511/2020, 07/28/2013 Pneumococcal Vaccine: 65+ Years Completed 05/16/2017, 04/04/2013 VITAMIN D LEVEL ONCE IN A LIFETIME-USE SMARTSET# 98449 Completed 10/09/2022, 03/10/2022, 09/02/2021, Additional history exists [...] Documents on File Type Date Recorded 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 Advance Directives and Living Will 01/27/2023 Christiane Chong ADVANCE DIRECTIVE / LIVING WILL Power of Salesperson Hearing Aids 01/27/2023 POWER OF A TTORNEY Latest Code [...] Care Agent (per Health Care Power of Salesperson Hearing Aids document) [email or web address] Coral Chong Other - (no specific identity) First Alternate Health Care Agent (per Health Care Power of Salesperson Hearing Aids document) che Care Teams Ramp Service Employee Relationship Specialty Start Date End Date Shonda Fields MD [address] [place] [address] [place] [address] PCP - General Family Medicine 02/21/19 documented as of this encounter
--- OUTSIDE RECORDS SUMMARY | 2023-10-25 20:40 | External Medical Summary | Summary of Care ---
Author Name Unknown Organization [facility] Address [address] [place] [address] Phone [phone] Care Team Providers Care Certified Technician Name Role Phone Shonda Fields MD Primary Care Prov ider Reason for Visit * Reason Comments Follow Up Pt here for issue wi th nose. States it is "rough all over". 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 (HCC) TAKE [...] BLOATING/GAS 100 Tablet 5 05/04/2023 Active Pancrelipase (Kpc-Rlbk-Grcz) 9393-9011 UNIT Oral Capsule Delayed Release Particles (Creon [...] as of this encounter (statuses as of 10/08/2023) Active Problems Problem Noted Date Diagnosed Date [...] artery 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[place] heart with stable angina pectoris 03/18/2020 Obesity, [...] 09/13/2011 Dyslipidemia, goal LDL below 70 09/13/2011 [facility] current use of anticoagulant therapy 0 09/13/2011 Overview: ICD-10 update of inactive term Personal history of malignant neoplasm of skin 0 10/19/2010 Overview: 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), R forehead BCC 01/2012, Ramon L forehead 01/2010 (Efudex) documented as of this encounter (statuses as of 10/08/2023) Resolved Problems Problem Noted Date Diagnosed Date [...] artery 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[place] heart with stable angina pectoris 11/04/2018 07/25/2022 Acute pain of right knee 11/30/2017 Hx of actinic keratosis 06/23/2015 06/0 07/2017 Irritable bowel syndrome 11/16/201208/2017 Abdominal pain 11/16/2012 08/04/2017 IBS (irritable bowel syndrome) 09/13/2011 02/21/2019 Anticoagulation management encounter 09/13/2011 11/04/2018 Dermatochalasis 06/22/2011 01/31/2018 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 If an emergency, please go to your [...] examples; Think sport, Think baby, María Elena, [employer], [employer], [place] baby. "Baby" products can be used for all ages. documented in this encounter Progress Notes * Park Alejandra PA-C - 10/08/2023 9:57 AM EDT SUBJECTIVE: HPI: Milena Lozoya is a 83 year old female seen at the request of Shonda Villeda for evaluation and treatment of nasal lesions. Pt. declined full skin exam, entirely. Rough areas on nose, "rough all over". No tx to date. Previous Drs. Becker/Kathya and Farida NEWTON patient. 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 Past Medical History: Diagnosis Date Atrial fibrillation (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) 2008 multiple Dyslipidemia, goal LDL below 100 09/13/2011 Esophageal reflux 09/13/2011 HTN, goal below 140/90 09/16/2011 HX-SKIN MALIGNANCY NEC 10/19/2010 Hyperlipemia Hypothyroid 2010 Hypothyroidism 09/13/2011 IBS (irritable bowel syndrome) 09/13/2011 IBS (irritable bowel syndrome) 09/13/2011 NSTEMI (non-ST elevated myocardial infarction) ([facility]) 02/21/2019 Other pulmonary embolism and infarction 2008 [...] 1-2 TABLETS FOUR TIMES DAILY NEEDED FOR BLOATING/RYB906 Tablet 5 Pancrelipase (Npc-Ouul-Jmoy) 7333-0081 UNIT Oral Capsule Delayed Release Particles (Creon [...] Alejandra PA-C 10/08/2023 9:57 AM Ref: SHONDA FIELDS[[id number]] [address] [place] [address] [place] [address] (office) [phone] (fax) PCP: SHONDA FIELDS [address] [place] [address] [place] [address] [phone] documented in this encounter Nursing Notes * [...] Visit Care Coordination and Integration [address] [facility] [id number] [facility] Keyboard Instrument Repairer [address] [place] [address] [place] [address] 10/31/2023 10:20 AM EDT Office Visit Podiatry [facility] [address] [place] [address] Viky Hughes, JENN [address] [facility] [place] [address] 11/16/2023 11:30 AM EDT Office Visit Gastroenterology [address] [place] [address] Rina Nicole CRNP [address] [place] [address] 11/20/2023 11:20 AM EDT Office Visit Family Medicine [address] [place] [phone] Shonda Fields MD [address] [place] [address] [place] [address] 12/25/2023 1:30 PM EDT Office Visit Cardiology, [facility] [address] [place] [address] Dulce Boudreaux CRNP [address] [place] [address] 01/16/2024 11:40 AM EDT Office Visit Dermatology [address] [place] [address] Park Alejandra PA-C [address] [place] [address] [place] [address] 02/13/2024 9:30 AM EDT Cardiac Studies Cardiology, [facility] [address] [place] [address] [place] Pacer Clinic [facility] 132 [place] [address] 10/06/2024 12:30 PM EDT Nurse Only Ancillary [address] [place] [address] Edel Nurse [address] [place] [address] Health Maintenance Due Date Last Done Comments *BISPHONATE OR OTHER ACCEPTABLE MEDICATION NEEDED FOR OSTEOPOROSIS (REFER TO SMARTSET #1146) 11/25/2022 COVID-19 Vaccine ( season) 2023 05/16/2022, 05/31/2021, 10/20/2020, Additional history exists GFR 02/21/2024 08/23/2023, 03/02, 03/12/2023, Additional history exists CKD PHOS USE SMARTSET 01834 03/13/202403/02, 03/12/2023, 03/11/2023, Additional history exists Albumin/Creatinine Ratio 05/14/2024 023, 06/27/2022, 09/02/2021, Additional history exists DTaP,Tdap,and Td Vaccines (2 - Td or Tdap) 07/06/2024 07/06/2014, 09/13/2011 CKD HGB USE SMARTSET 27013 08/23/202408/23, 03/13/2023, 03/12/2023, Additional history exists TSH 08/23/2024 08/23/2023, 06/02, 08/17/2021, Additional history exists Depression Screening 10/04/2024 10/05/2023 DXA Scan 01/18/2025 01/18/2023, 05/0 11/2020, 07/28/2013 Pneumococcal Vaccine: 65+ Years Completed 05/16/2017, 04/04/2013 VITAMIN D LEVEL ONCE IN A LIFETIME-USE SMARTSET# 63570 Completed 10/09/2022, 03/10/2022, 09/02/2021, Additional history exists [...] interpreted or resulted by a [facility] or [facility] contracted radiologist. 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 Advance Directives and Living Will 01/27/2023 Christiane Chong ADVANCE DIRECTIVE / LIVING WILL Power of Creative Recruiter 01/27/2023 POWER OF A TTORNEY Latest Code [...] Care Agent (per Health Care Power of Creative Recruiter document) [email or web address] Coral Chong Other - (no specific identity) First Alternate Health Care Agent (per Health Care Power of Creative Recruiter document) [email or web address] Care Teams Certified Technician Relationship Specialty Start Date End Date Shonda Fields MD [address] [place] [address] [place] [phone] PCP - General Family Medicine 02/21/19 documented as of this encounter
--- OUTSIDE RECORDS SUMMARY | 2023-10-25 20:40 | External Medical Summary | Summary of Care ---
Author Name Unknown Organization [facility] Address [address] [place] [address] Phone [phone] Care Team Providers Care Highway Painter Name Role Phone Shonda Fields MD Primary Care Prov ider Encounter Details Date Type Department Care Team (Late st Contact Info) Description 09/28/2023 Telephone Family Medicine [address] [phone] Shonda Fields MD [address] [place] [id number] Allergies Active Allergy Reactions Criticality Noted Date [...] as of this encounter (statuses as of 09/28/2023) Medications Medication Sig Dispensed Refills Start Date [...] coronary artery stent placement,Coronary artery disease of [place] artery of [place] heart with stable angina pectoris (HCC) Place [...] 24 Hour (Imdur)Indications: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 (HCC) TAKE [...] BLOATING/GAS 100 Tablet 5 05/04/2023 Active Pancrelipase (Tnp-Iucm-Rktl) 4129-5646 UNIT Oral Capsule Delayed Release Particles (Creon [...] as of this encounter (statuses as of 09/28/2023) Active Problems Problem Noted Date Diagnosed Date [...] artery 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[place] heart with stable angina pectoris 03/18/2020 Obesity, [...] 09/13/2011 Dyslipidemia, goal LDL below 70 09/13/2011 MCC current use of anticoagulant therapy 0 09/13/2011 Overview: ICD-10 update of inactive term Personal history of malignant neoplasm of skin 0 10/19/2010 Overview: 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), R forehead BCC 01/2012, Ramon L forehead 01/2010 (Efudex) documented as of this encounter (statuses as of 09/28/2023) Resolved Problems Problem Noted Date Diagnosed Date [...] artery 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[place] heart with stable angina pectoris 11/04/2018 07/25/2022 Acute pain of right knee 11/30/2017 Hx of actinic keratosis 06/23/2015 06/07/2017 Irritable bowel syndrome 11/16/201208/2017 Abdominal pain 11/16/2012 08/04/2017 IBS (irritable bowel syndrome) 09/13/2011 02/21/2019 Anticoagulation management encounter 09/13/2011 11/04/2018 Dermatochalasis 06/22/2011 01/31/2018 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 0 12/23/2012 documented as of this encounter (statuses as of 09/28/2023) Immunizations Name Administration Dates Next Due COVID-19 mRNA, LNP-s, No Pre serve, 2-Dose Series (eTipping) 05/31/2021,10/20/2020,09/22/2020 Covid-19, Mrna, Lnp-s, Pf, B ivalent, 30 Mcg, IM, 12 yrs and above (eTipping) 05/16/2022 Pneumococcal Conjugate Vacc, 13 Valent (Prevnar) [...] money to buy more. Never true 01/10/20 Within the past 12 months, t he [...] encounter Miscellaneous Notes * Telephone Encounter - Kelly Lennon LPN - 09/28/2023 2:16 PM EDT Prelim for VASC DUPLEX VENOUS LE UNILAT is negative for DVT. documented in this encounter Plan of Treatment Upcoming Encounters Date Type Department Care Team (Late st Contact Info) Description 10/03/2023 11:50 AM EDT Office Visit Vascular Surgery, [facility] [address] [place] [address] Zack Alcocer MD [address] [place] [address] 10/05/2023 12:30 PM EDT Nurse Only Ancillary [address] [place] [address] [place], Nurse [address] [place] [address] 10/31/2023 10:20 AM EDT Office Visit Podiatry [facility] [address] [facility] [place] [address] Viky Hughes DPM [address] [place] [address] [place] [address] 11/16/2023 11:30 AM EDT Office Visit Gastroenterology [address] [place] [address] Rina Nicole CRNP [address] [facility] [place] [address] 11/20/2023 11:20 AM EDT Office Visit Family Medicine [address] [place] [phone] Shonda Fields MD [address] [place] [address] [place] [address] 12/25/2023 1:30 PM EDT Office Visit Cardiology, [facility] [address] [facility] [place] [address] Dulce Boudreaux CRNP [address] [place] [address] 02/13/2024 9:30 AM EDT Cardiac Studies Cardiology, [facility] [address] [place] [address] [place], Pacer Clinic [facility] [address] [place] [address] Health Maintenance Due Date Last Done Comments *BISPHONATE OR OTHER ACCEPTABLE MEDICATION NEEDED FOR OSTEOPOROSIS (REFER TO SMARTSET #1146) 11/25/2022 COVID-19 Vaccine ( season) 2023 05/16/2022, 05/31/2021, 10/20/2020, Additional history exists Depression Screening 10/03/2023 10/02/2022 GFR 02/21/2024 08/23/2023, 03/02, 03/12/2023, Additional history exists CKD PHOS USE SMARTSET 91976 03/13/202403/02, 03/12/2023, 03/11/2023, Additional history exists Albumin/Creatinine Ratio 05/14/2024 023, 06/27/2022, 09/02/2021, Additional history exists DTaP,Tdap,and Td Vaccines (2 - Td or Tdap) 07/06/2024 07/06/2014, 09/13/2011 CKD HGB USE SMARTSET 70107 08/23/202408/23, 03/13/2023, 03/12/2023, Additional history exists TSH 08/23/2024 08/23/2023, 12/2 12/2021, 08/17/2021, Additional history exists DXA Scan 01/18/2025 01/18/2023, 05/0 11/2020, 07/28/2013 Pneumococcal Vaccine: 65+ Years Completed 05/16/2017, 04/04/2013 VITAMIN D LEVEL ONCE IN A LIFETIME-USE SMARTSET# [id number] Completed 10/09/2022, 03/10/2022, 09/02/2021, Additional history exists [...] on File Type Date Recorded Patient Pediatric Rn Expl anation Advance Directives and Living Will 01/27/2023 Christiane Chong ADVANCE DIRECTIVE / LIVING WILL Power of Paradichlorobenzene Machine Operator 01/27/2023 POWER OF A TTORNEY Latest Code [...] Name Relationship Healthcare Agent Relationship Communication Christiane Devora Clark Adult Child Health Care Agent (per Health Care Power of Paradichlorobenzene Machine Operator document) Coral Chong Other - (no specific identity) First Alternate Health Care Agent (per Health Care Power of Paradichlorobenzene Machine Operator document) [email or web address] Care Teams Highway Painter Relationship Specialty Start Date End Date Shonda Fields MD [address] [place] [address] [place] [address] PCP - General Family Medicine 02/21/19 documented as of this encounter
--- OUTSIDE RECORDS SUMMARY | 2023-10-25 20:40 | External Medical Summary | Summary of Care ---
Author Name Unknown Organization [facility] Address [address] [place] [address] Phone [phone] Care Team Providers Care Procurement Analyst Name Role Phone Shonda Fields MD Primary Care Prov ider Reason for Visit * Reason Comments Follow Up Encounter Details Date Type Department Care Team (Late st Contact Info) Description 10/03/2023 11:50 AM EDT Office Visit Vascular Surgery, [facility] [address] [place] [address] Zack Alcocer MD [address] [place] [address] Carotid stenosis, non-symptomatic, bilateral*; Subclavian artery stenosis, right (HCC); Aortic ectasia, abdominal (HCC) Allergies Active Allergy Reactions Criticality Noted Date [...] as of this encounter (statuses as of 10/03/2023) Medications Medication Sig Dispensed Refills Start Date [...] coronary artery stent placement,Coronary artery disease of [place] artery of [place] heart with stable angina pectoris (HCC) Place [...] 24 Hour (Imdur)Indications: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 (HCC) TAKE [...] BLOATING/GAS 100 Tablet 5 05/04/2023 Active Pancrelipase (Nck-Czxl-Rjah) 6341-3695 UNIT Oral Capsule Delayed Release Particles (Creon [...] as of this encounter (statuses as of 10/03/2023) Active Problems Problem Noted Date Diagnosed Date [...] artery 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[place] heart with stable angina pectoris 03/18/2020 Obesity, [...] 09/13/2011 Dyslipidemia, goal LDL below 70 09/13/2011 [facility] current use of anticoagulant therapy 0 09/13/2011 Overview: ICD-10 update of inactive term Personal history of malignant neoplasm of skin 0 10/19/2010 Overview: 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), R forehead BCC 01/2012, Ramon L forehead 01/2010 (Efudex) documented as of this encounter (statuses as of 10/03/2023) Resolved Problems Problem Noted Date Diagnosed Date [...] artery 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[place] heart with stable angina pectoris 11/04/2018 07/25/2022 Acute pain of right knee 11/30/2017 Hx of actinic keratosis 06/23/2015 06/0 07/2017 Irritable bowel syndrome 11/16/201208/2017 Abdominal pain 11/16/2012 08/04/2017 IBS (irritable bowel syndrome) 09/13/2011 02/21/2019 Anticoagulation management encounter 09/13/2011 11/04/2018 Dermatochalasis 06/22/2011 01/31/2018 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 0 12/23/2012 documented as of this encounter (statuses as of 10/03/2023) Immunizations Name Administration Dates Next Due COVID-19 mRNA, LNP-s, No Pre serve, 2-Dose Series (Moverati) 05/31/2021,10/20/2020,09/22/2020 Covid-19, Mrna, Lnp-s, Pf, B ivalent, [...] Date Smoking Tobacco: Never Smokeless Tobacco: Never Tobacco Cessation:Counseling Given: No Alcohol Use Standard Drinks/Week Comments No 0 [...] Sign Reading Time Taken Comments Blood Pressure 138/82 10/03/2023 10:44 AM EDT Pulse 82 10/03/2023 10:44 AM EDT Temperature 36.1 C (96.9 F) 10/03/2023 10:44 AM E DT Respiratory Rate - - Oxygen Saturation - - Inhaled Oxygen Concentration - - Weight 79.2 kg (174 lb 9.6 oz) 10/03/2023 10:44 AM EDT Height - - Body Mass Index 27.35 04/06/2023 11:27 AM EDT documented in this encounter Functional Status [...] as of this encounter Progress Notes * Tim Gamez PA-C - 10/03/2023 11:50 AM EDT Date of Service: 10/03/2023 10:49 AM Milena Lozoya is a 83 year old female. Referring Physician: Shonda Chakraborty MD Chief Complaint: Return patient, follow up for R SCA stenosis, carotid stenosis and abd aortic ectasia Since last visit, continues to have chronic issues/pain at night in both arms. Known arthritis of the shoulders etc. No symptoms of arm claudication or stroke/TIA She underwent [place]ipple [place] last [place] [facility] Patient declined post op chemotherapy due to her desire to take care of her , who has dementia HPI: Initially had a telemedicine evaluation Unsure initially why she had the visit planned with us After further discussion, she does recall some episodes of dizziness Epic notes reflect postural dizziness with presyncope. She tells me she felt dizzy in an airplane once and denies any recurrence. CAROTID DISEASE: Patient denies recent TIA, recent stroke and recent amaurosis fugax. Carotid duplex exam at [facility] identified the right internal carotid with less than 50% stenosis and the left internal carotid with less than 50% stenosis. SUBCLAVIAN DISEASE: Denies any R arm fatigue Carotid duplex 08/12/19 revealed R SCA stenosis but R vert remains antegrade Reports she takes an ASA a day and is on Repatha (injectible statin) Also tells me she is on Coumadin Current Outpatient Medications Medication Sig Dispense Refill [...] doses in 15 minutes 150 Tablet 3 Hydrocortisone 2.5 % External Cream Apply to affected area nightly as needed for up to a week. Takeat least a 2 week break between treatments. 28 g 0 Cholestyramine 4 GM Oral Packet (Questran) Take 1 Packet by mouth every other day. Mixed with liquid. 90 Packet 1 amLODIPine Besylate 5 MG Oral Tablet (Norvasc) Take 1 Tablet by mouth in the morning. 30 Tablet 5 Ondansetron 4 MG Oral Tablet Disintegrating (Zofran) Place 1 Tablet on tongue every 8 hours as needed for Nausea. dissolve on tongue. 30 Tablet 5 ALPRAZolam 0.25 MG Oral Tablet (xaNAX) TAKE ONE TABLET BY MOUTH THREE TIMES DAILY NEEDED FOR ANXIETY OR INSOMNIA 30 Tablet 0 Magnesium Hydroxide 400 MG/5ML Oral Suspension Take by mouth 2 times a day as needed for Constipation. Isosorbide Mononitrate ER 60 MG Oral Tablet [...] 1-2 TABLETS FOUR TIMES DAILY NEEDED FOR BLOATING/JHH703 Tablet 5 Pancrelipase (Cvg-Zbxr-Noft) 8284-8774 UNIT Oral Capsule Delayed Release Particles (Creon [...] mouth in the morning. 30 Tablet 5 Zoster Vac Recomb Adjuvanted 50 MCG/0.5ML Intramuscular Suspension Reconstituted (Shingrix) Inject 0.5 mL into a large muscle now and repeat dose in 60 to 180 days (Patient not taking: Reported on 06/05/2023) 1 Each 1 Calcium 600-D 600-400 MG-UNIT Oral Tablet Take 1 Tablet by mouth in the morning. In the morning.. (Patient not taking: Reported on 10/03/2023) Potassium Chloride Debi ER 20 MEQ Oral Tablet Extended Release Take 1 Tablet by mouth in the morning and 1 Tablet before bedtime. (Patient not taking: Reported on 10/03/2023) 60 Tablet 11 Sennosides 8.6 MG Oral Tablet Take 1 Tablet by mouth daily as needed for Constipation. (Patient nottaking: Reported on 10/03/2023) No current facility-administered medications for this visit. 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 Pancreatic cyst K86.2 Paroxysmal atrial fibrillation ([facility]) I48.0 Old myocardial infarction I25.2 Adverse reaction to statin medication T46.6X5A Adrenal insufficiency ([facility]) E27.40 Tremors of nervous system R25.1 Hyperparathyroidism, primary ([facility]) E21.0 Obesity, Class I, BMI 30.0-34.9 (see actual BMI) E66.9 Adjustment disorder with anxious mood F43.22 Coronary artery disease of [place] artery of [place] heart with stable angina pectoris ([facility]) I25.118 Hypertensive kidney disease with stage 3a chronic kidney disease I12.9, N18.31 Statin intolerance Z78.9 Esophageal spasm K22.4 High risk for fracture due to osteoporosis by DEXA scan M81.0 Chronic kidney disease, stage 3a ([facility]) N18.31 Greater trochanteric bursitis of left hip M70.62 Senile osteoporosis M81.0 Trigger middle finger of left hand M65.332 Carotid stenosis, non-symptomatic, bilateral I65.23 Aortic ectasia, abdominal ([facility]) I77.811 Subclavian artery stenosis, right ([facility]) I77.1 Adenocarcinoma of pancreas ([facility]) C25.9 Post-op pain G89.18 Family History Problem Relation Age of Onset Stroke Mother Neurological Disorder Mother seizures Other (Other) Father in WWII No Past Hx Father trauma Social History Socioeconomic History Marital status: Spouse name: Not on file Number of children: Not on file Years of education: Not on file Highest education level: Not on file Occupational History Not on file Tobacco Use Smoking status: Never Smokeless tobacco: Never Vaping Use Vaping Use: Never used Substance and Sexual Activity Alcohol use: No Drug use: No Sexual activity: Not Currently Other Topics Concern Service Not Asked Blood Transfusions Yes Caffeine Concern Not Asked Occupational Exposure Not Asked Hobby Hazards Not Asked Sleep Concern Not Asked Stress Concern Not Asked Weight Concern Not Asked Special Diet Not Asked Back Care Not Asked Exercise Not Asked Bike Helmet Not Asked Seat Belt Not Asked Self-Exams Not Asked Social History Narrative 62yrs Social Determinants of Health Financial Resource Strain: Not on file Food Insecurity: No Food Insecurity (01/09/2023) Hunger Vital Sign Worried About Running Out of Food in the Last Year: Never true Ran Out of Food in the Last Year: Never true Transportation Needs: Not on file Physical Activity: Not on file Stress: Not on file Social Connections: Not on file Intimate Partner Violence: Not on file Housing Stability: Not on file REVIEW OF SYSTEMS: Constitutional: Denies fever. Eyes: Denies amaurosis fugax. Ear, Nose, Throat and Mouth: denies trouble swallowing. Cardiovascular: denies chest pains, reports CABG and PCI in 2005. Respiratory: denies shortness of breath, denies PEREA. Gastrointestinal: denies melena, denies bright red blood per rectum. Genitourinary: denies hematuria. Musculoskeletal: reports arthritis. Skin: denies ulcers. Neurological: denies TIA, denies CVA, denies amaurosis fugax. GENERAL MULTI-SYSTEM PHYSICAL EXAM: VITAL SIGNS: BP 138/82 (BP Site: Left Arm, BP Position: Sitting, BP Cuff Size: Regular) | Pulse 82 | Temp 36.1 C (96.9 F) (Temporal Artery) | Wt 79.2 kg (174 lb 9.6 oz) | BMI 27.35 kg/m | BSA 1.94 m GENERAL MULTI-SYSTEM PHYSICAL EXAM: ADDITIONAL VS: reg rhythm with today's visit, 10/03/2023 GENERAL: Normal grooming habits, no acute distress and appears stated age. NECK: No masses and Normal Thyroid. RESPIRATORY: respiratory effort normal and breath sounds normal. CARDIOVASCULAR: no heart murmurs, no BLE edema GASTROINTESTINAL: no tenderness, protuberant and abdominal aorta not palpable. LYMPHATIC: cervical lymph nodes normal. SKIN: no ulcers, no rash, no induration, capillary refill normal and no dependent rubor. PSYCHIATRIC: orientation to time, place and person normal and recent and remote memory normal. EYES: pupils normal and irises normal. NEUROLOGIC: Motor function intact and Sensory exam intact PULSE SCALE: Carotid Right:----Bruit: No Left:----Bruit: No Radial Right: 1 Left: 3 Dorsalis Pedis Right: 2 Left: 2 Posterior Tibial Right: 2 Left: 2 PULSE SCALE: 4=Aneurysmal; 3=Normal; 2=Diminished; 1=Barely Palpable; 0=Absent DIAGNOSTIC STUDIES: 09/07/[address] Abd/Pelvis: 2.9 cm AAA 08/13/23 Carotid Duplex: FITZ 77/16, LICA 52/21, ante verts 08/13/23 Abd Aortic Duplex: Prox Ao 2.4 cm, Mid Ao 2.3 cm, Distal Ao 2.9 cm, RCIA 1.5 cm, LCIA 1.4 cm The above diagnostic images were directly visualized and independently interpreted by me on 10/03/2023 with results as above 08/14/22 Carotid Duplex: FITZ 102/18, LICA 71/20, bidirectional right vert, ante left vert, RSCA 230 07/31/22 CT Abd Pelvis: Abd Aorta 2.9 cm in all dimensions 11/03/20 Carotid duplex: FITZ 54/19, LICA 61/19, right vert UI, patent RSCA 08/12/19: Carotid Duplex: FITZ 73/12, R vert abnl flow but remains antegrade, LICA 47/17 [no significant BP differential between R brachial and L brachial] LABS: Hemoglobin AIC Results: Lab Results Component Value Date/Time HEMOGLOBIN A1C - [facility] 6.4 (H) 03/09/2023 08:10 AM HEMOGLOBIN A1C - [facility] 5.6 08/08/2019 01:44 PM HEMOGLOBIN A1C - [facility] 6.3 05/26/2016 07:54 AM HEMOGLOBIN A1C - [facility] 6.7 (H) 11/25/2015 10:38 AM Lab Results Component Value Date/Time CREATININE - [facility] 0.9 08/23/2023 12:14 PM CREATININE - [facility] 0.8 03/13/2023 08:19 AM CREATININE - [facility] 0.9 03/12/2023 06:38 AM CREATININE - [facility] 1.1 (H) 04/26/2020 09:21 AM CREATININE - [facility] 1.0 12/30/2019 12:04 PM CREATININE - [facility] 1.0 08/08/2019 01:44 PM CREATININE, RANDOM URINE - [facility] 78 05/14/2023 12:26 PM CREATININE, RANDOM URINE - [facility] 123 06/27/2022 11:25 AM CREATININE, RANDOM URINE - [facility] 211 09/02/2021 10:43 AM CREATININE, RANDOM URINE - [facility] 124 08/08/2019 01:44 PM CREATININE-OUTSIDE LAB 1.10 (A) 04/27/2021 12:00 AM CREATININE-OUTSIDE LAB 0.95 06/19/2020 12:00 AM CREATININE-OUTSIDE LAB 0.96 06/18/2020 12:00 AM Lab Results Component Value Date/Time LDL (CALCULATED)-OUTSIDE [...] - [facility] 148 (H) 05/22/2014 11:36 AM The above clinical labs were reviewed by me on 10/03/23 IMPRESSIONS: Asymptomatic < 50% bilateral ICA stenosis Asymptomatic 50-69% RSCA stenosis, on past duplex Abd aortic ectasia, 2.9 cm on recent duplex & NC CT abd/pelvis Pancreatic CA, s/p Whipple 20[place] [facility] [place] s/p CABG and PCI HTN Hx of DVT and PE, on coumadin Dyslipidemia, previously on Repatha. Myalgias with Crestor, Lipitor and Zetia A fib, on coumadin Hypothyroidism Reflux S/P pacemaker IV contrast dye PLAN: The patient was counseled regarding the pathophysiology and natural history of carotid disease, as well as the symptoms of CVA/TIA/amaurosis fugax. Given her age and asymptomatic, would recommend medical therapy Continue ASA 81 mg for platelet inhibition Previously on Repatha for dyslipidemia, myalgias with statins Also on coumadin, due to PE/DVT RTC in 2 years at [facility] with carotid duplex one week before clinic visit. (Will re-study abd aorta 2025) Tim Gamez PA-C documented in this encounter Nursing Notes * Carlee Rubin LPN - 10/03/2023 10:48 AM EDT Reviewed the option of [facility] with patient and / or family. Carlee Rubin LPN documented in this encounter Plan of Treatment Upcoming Encounters Date Type Department Care Team (Late st Contact Info) Description 10/05/2023 12:30 PM EDT Nurse Only Ancillary [address] [place] [address] [place], Nurse [address] [place] [address] 10/31/2023 10:20 AM EDT Office Visit Podiatry [facility] [address] [facility] [place] [address] Viky Hughes DPM [address] [facility] [place] [address] 11/16/2023 11:30 AM EDT Office Visit Gastroenterology [address] [place] [address] Rina Nicole CRNP [address] [place] [address] 11/20/2023 11:20 AM EDT Office Visit Family Medicine [address] [place] [phone] Shonda Fields MD [address] [place] [address] [place] [address] 12/25/2023 1:30 PM EDT Office Visit Cardiology, [facility] [address] [place] [address] Dulce Boudreaux CRNP [address] [place] [address] 02/13/2024 9:30 AM EDT Cardiac Studies Cardiology, [facility] [address] [place] [address] [place] [facility] [address] [place] [address] Scheduled Orders Name Type Priority Associated Diagnoses Orde r Schedule VASC DUPLEX CAROTID BILAT Medical Imaging Routine Carotid stenosis, non-symptomatic, bilateral Subclavian artery stenosis, right (HCC) Aortic ectasia, abdominal (HCC) Ordered: 10/03/2023 Health Maintenance Due Date Last Done Comments *BISPHONATE OR OTHER ACCEPTABLE MEDICATION NEEDED FOR OSTEOPOROSIS (REFER TO SMARTSET #1146) 11/25/2022 COVID-19 Vaccine ( season) 2023 05/16/2022, 05/31/2021, 10/20/2020, Additional history exists Depression Screening 10/03/2023 10/02/2022 GFR 02/21/2024 08/23/2023, 03/02, 03/12/2023, Additional history exists CKD PHOS USE SMARTSET 83712 03/13/202403/02, 03/12/2023, 03/11/2023, Additional history exists Albumin/Creatinine Ratio 05/14/2024 023, 06/27/2022, 09/02/2021, Additional history exists DTaP,Tdap,and Td Vaccines (2 - Td or Tdap) 07/06/2024 07/06/2014, 09/13/2011 CKD HGB USE SMARTSET 07244 08/23/202408/23, 03/13/2023, 03/12/2023, Additional history exists TSH 08/23/2024 08/23/2023, 06/02, 08/17/2021, Additional history exists DXA Scan 01/18/2025 01/18/2023, 05/0 11/2020, 07/28/2013 Pneumococcal Vaccine: 65+ Years Completed 05/16/2017, 04/04/2013 VITAMIN D LEVEL ONCE IN A LIFETIME-USE SMARTSET# [id number] Completed 10/09/2022, 03/10/2022, 09/02/2021, Additional history exists [...] as of this encounter Visit Diagnoses Diagnosis Carotid stenosis, non-symptomatic, bilateral- Primary Subclavian artery stenosis, right (HCC) Atherosclerosis of other specified arteries Aortic ectasia, abdominal (HCC) Abdominal aortic ectasia documented in this encounter Advance Directives Documents on File Type Date Recorded Patient Pearl Fisherman Expl anation Advance Directives and Living Will 01/27/2023 Christiane Chong ADVANCE DIRECTIVE / LIVING WILL Power of Air Conditioning Mechanic 01/27/2023 POWER OF A TTORNEY Latest Code [...] File Name Relationship Healthcare Agent Relationship Communication Crhistiane Clark Adult Child Health Care Agent (per Health Care Power of Air Conditioning Mechanic document) [email or web address] Other - (no specific identity) First Alternate Health Care Agent (per Health Care Power of Air Conditioning Mechanic document) [email or web address] Procurement Analyst Relationship Specialty Start Date End Date Shonda Fields MD [address] [place] [address] [place] [address] PCP - General Family Medicine 02/21/19 documented as of this encounter
--- OUTSIDE RECORDS SUMMARY | 2023-10-25 20:40 | External Medical Summary | Summary of Care ---
Author Name Unknown Organization [facility] Address [address] [place] [address] Phone [phone] Care Team Providers Care Assisted Sales Representative Name Role Phone Shonda Fields MD Primary Care Prov ider Reason for Visit * Reason Onset Date Comments STAIR AAA 10/04/2023 Encounter Details Date Type Department Care Team (Late st Contact Info) Description 10/04/2023 Telephone STAIR AAA [address] [place] [address] Program, Stair [address] [place] [address] STAIR AAA Allergies Active Allergy Reactions Criticality Noted Date [...] as of this encounter (statuses as of 10/04/2023) Medications Medication Sig Dispensed Refills Start Date [...] coronary artery stent placement,Coronary artery disease of [place] artery of [place] heart with stable angina pectoris (HCC) Place [...] 24 Hour (Imdur)Indications: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 (HCC) TAKE [...] BLOATING/GAS 100 Tablet 5 05/04/2023 Active Pancrelipase (Aqz-Obtn-Djxp) 6795-8804 UNIT Oral Capsule Delayed Release Particles (Creon [...] as of this encounter (statuses as of 10/04/2023) Active Problems Problem Noted Date Diagnosed Date [...] 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 03/18/2020 Obesity, [...] 09/13/2011 Dyslipidemia, goal LDL below 70 09/13/2011 half-way current use of anticoagulant therapy 0 09/13/2011 Overview: ICD-10 update of inactive term Personal history of malignant neoplasm of skin 0 10/19/2010 Overview: 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), R forehead BCC 01/2012, Ramon L forehead 01/2010 (Efudex) documented as of this encounter (statuses as of 10/04/2023) Resolved Problems Problem Noted Date Diagnosed Date [...] 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 11/04/2018 07/25/2022 Acute pain of right knee 11/30/2017 Hx of actinic keratosis 06/23/201507/2017 Irritable bowel syndrome 11/16/201208/2017 Abdominal pain 11/16/2012 08/04/2017 IBS (irritable bowel syndrome) 09/13/2011 02/21/2019 Anticoagulation management encounter 09/13/2011 11/04/2018 Dermatochalasis 06/22/2011 01/31/2018 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 0 12/23/2012 documented as of this encounter (statuses as of 10/04/2023) Immunizations Name Administration Dates Next Due COVID-19 mRNA, LNP-s, No Pre serve, 2-Dose Series (Carbon Salon) 05/31/2021,10/20/2020,09/22/2020 Covid-19, Mrna, Lnp-s, Pf, B ivalent, [...] encounter Miscellaneous Notes * Telephone Encounter - Ema Esquivel LPN - 10/04/2023 8:35 AM EDT AAA - Clinical Summary Name: Milena Lozoya Age: [age] year old AAA Review: Follow-up Follow-up Encounter Provider: Tim Gamez PA-C Patient Identified by: NLP Report Imaging Interpretation: CT Type of Result: Aortic Ectasia 2.6 to 2.9 cm AAA Care Plan Imaging Recommendation: No Imaging needed. Details: None AAA Care Plan Visit Recommendation: Return visit in Vascular Surgery Details: in 2 years Next steps: No action needed at this time. Patient was seen by vascular surgery yesterday. Next clinic visit isdue in 2 years. No testing for AAA ordered for that visit. Will continue to track. Time spent: 10 minutes Ema Esquivel LPN Coordinator STAIR (System to Track Abnormalities of Importance Reliably) CT ABD/PELVIS WO IV/ORAL CONTRAST 2023 Narrative EXAM EXAM: CT ABD/PELVIS WO IV/ORAL CONTRAST DATE and TIME: 2023 1:37 pm HISTORY pancreas cancer TECHNIQUE Axial images of the abdomen and pelvis were obtained. Sagittal and coronal images were reconstructed from the axial data. Oral Contrast: Not administered. IV Contrast: Not administered. COMPARISON CT 12/18/2022 FINDINGS Lower chest: Lung bases are clear. Partially imaged pacemaker leads. Lines and devices: Pancreatic duct stent. Liver: Unremarkable. Gallbladder: Cholecystectomy. Bile ducts: Normal in caliber. Pneumobilia. Intact choledochojejunostomy. Pancreas: Status post Whipple. Pancreatic duct stent in place no obvious ductal dilation. Similar cystic changes in the residual pancreas. No peripancreatic fat stranding or soft tissue attenuation. Spleen: Unremarkable. Adrenals: Unremarkable. Kidneys/Ureters: No urinary tract calculus or hydronephrosis. Bladder: Unremarkable. Reproductive organs: Hysterectomy. Peritoneum/Retroperitoneum: No ascites or peritoneal disease. Bowel: Gastrojejunostomy. No abnormal bowel wall thickening or dilated bowel loops. Colonic diverticulosis. Lymph nodes: No lymphadenopathy. Vessels: Similar ectatic 2.9 cm infrarenal aorta. Abdominal Wall/Soft Tissues: Postsurgical changes of the anterior abdominal wall. Bones: Diffuse osteopenia and degenerative osseous changes. Impression IMPRESSION Status post Whipple with similar appearance of the residual pancreatic tail. No evidence of new disease within the limitations of this noncontrast study. documented in this encounter Plan of Treatment Upcoming Encounters Date Type Department Care Team (Late st Contact Info) Description 10/05/2023 12:30 PM EDT Nurse Only Ancillary [address] [place] [address] Nurse Edel [address] [place] [address] 10/31/2023 10:20 AM EDT Office Visit Podiatry [facility] [place] [address] Viky Hughes DPM [facility] [address] 11/16/2023 11:30 AM EDT Office Visit Gastroenterology [address] [place] [address] Rina Nicole CRNP [address] [place] [address] 11/20/2023 11:20 AM EDT Office Visit Family Medicine [address] [place] [phone] Shonda Fields MD [address] [place] [address] [place] [address] 12/25/2023 1:30 PM EDT Office Visit Cardiology, [facility] [place] [address] Dulce Boudreaux CRNP [address] [place] [address] 02/13/2024 9:30 AM EDT Cardiac Studies Cardiology, [facility] [place] [address] [facility] [address] [facility] [place] [address] Health Maintenance Due Date Last Done Comments *BISPHONATE OR OTHER ACCEPTABLE MEDICATION NEEDED FOR OSTEOPOROSIS (REFER TO SMARTSET #1146) 11/25/2022 COVID-19 Vaccine ( season) 2023 05/16/2022, 05/31/2021, 10/20/2020, Additional history exists Depression Screening 10/03/2023 10/02/2022 GFR 02/21/2024 08/23/2023, 03/02, 03/12/2023, Additional history exists CKD PHOS USE SMARTSET 02746 03/13/202403/02, 03/12/2023, 03/11/2023, Additional history exists Albumin/Creatinine Ratio 05/14/2024 023, 06/27/2022, 09/02/2021, Additional history exists DTaP,Tdap,and Td Vaccines (2 - Td or Tdap) 07/06/2024 07/06/2014, 09/13/2011 CKD HGB USE SMARTSET 55440 08/23/202408/23, 03/13/2023, 03/12/2023, Additional history exists TSH 08/23/2024 08/23/2023, 06/02, 08/17/2021, Additional history exists DXA Scan 01/18/2025 01/18/2023, 05/0 11/2020, 07/28/2013 Pneumococcal Vaccine: 65+ Years Completed 05/16/2017, 04/04/2013 VITAMIN D LEVEL ONCE IN A LIFETIME-USE SMARTSET# [id number] Completed 10/09/2022, 03/10/2022, 09/02/2021, Additional history exists [...] Documents on File Type Date Recorded 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 Advance Directives and Living Will 01/27/2023 Christiane Chong ADVANCE DIRECTIVE / LIVING WILL Power of Behavioral Health Tech 01/27/2023 POWER OF A TTORNEY Latest Code [...] Care Agent (per Health Care Power of Behavioral Health Tech document) [email or web address] Coral Chong Other - (no specific identity) First Alternate Health Care Agent (per Health Care Power of Behavioral Health Tech document) che Care Teams Assisted Sales Representative Relationship Specialty Start Date End Date Shonda Fields MD [address] [place] [address] [place] [phone] PCP - General Family Medicine 02/21/19 documented as of this encounter
--- OUTSIDE RECORDS SUMMARY | 2023-10-25 20:40 | External Medical Summary | Summary of Care ---
Author Name Unknown Organization [facility] Address [address] [place] [address] Phone [phone] Care Team Providers Care Clinical Leader Name Role Phone Shonda Fields MD Primary Care Prov ider Reason for Referral * Evaluate & Treat - Unlimited Visits (Within 30 days (routine)) - Authorized Specialty Diagnoses / Procedures Referred By Contac t Referred To Contact Podiatry Diagnoses Pain in toes of both feet Callus Left foot pain Shonda Fields MD [address] [place] [address] [place] [address] Referral ID Status Reason Start Date Expiration Date Visits Requested Visits Authorized [id number] Authorized Specialty Services Required 09/24/2023 999 999 Question Answer Referral Priority Within 30 days (routine) Where should this appointment be scheduled? [facility] Which condition are you referring this patient for? Routine Foot Care Medicare Patient? Yes Can Patient perform routine footcare without assistance? No Does patient have a chronic condition? Yes Has patient been seen in the past 6 months? 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 (HCC) Place [...] 24 Hour (Imdur)Indications:C oronary artery disease of pauma artery of pauma heart with stable angina pectoris (HCC) TAKE [...] BLOATING/GAS 100 Tablet 5 05/04/2023 Active Pancrelipase (Vtv-Naxp-Qkpl) 9333-5390 UNIT Oral Capsule Delayed Release Particles (Creon [...] artery 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pauma heart with stable angina pectoris 03/18/2020 Obesity, [...] artery 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pauma heart with stable angina pectoris 11/04/2018 07/25/2022 Acute pain of right knee 11/30/2017 03/ Hx of actinic keratosis 06/23/2015 06/0 07/2017 [...] mRNA, LNP-s, No Pre serve, 2-Dose Series (Yurbuds) 05/31/2021,10/20/2020,09/22/2020 Covid-19, Mrna, Lnp-s, Pf, B ivalent, 30 Mcg, IM, 12 yrs and above (Yurbuds) 05/16/2022 Pneumococcal Conjugate Vacc, 13 Valent (Prevnar) [...] as of this encounter Miscellaneous Notes * Addendum Note - Shonda Fields MD - 09/24/2023 3:27 PM EDT Addended by: SHONDA JARAMILLO on: 09/24/2023 03:27 PM Modules accepted: Orders * Telephone Encounter - Lida Nelson OSA [...] - Billing and Coding: Routine Foot Care ([id number]) (cms.gov) Thank you! Podiatry Scheduling documented in this encounter Plan of Treatment Upcoming Encounters Date Type Department Care Team (Late st Contact Info) Description 10/03/2023 11:50 AM EDT Office Visit Vascular Surgery, [place] [facility] [address] [facility] [place] [address] Zack Alcocer MD [address] [place] [address] 10/05/2023 12:30 PM EDT Nurse Only Ancillary [address] [place] [address] Yadiraalley, Nurse [address] [place] [address] 10/31/2023 10:20 AM EDT Office Visit Podiatry [place] [facility] [address] [facility] [place] [address] Viky Hughes DPM [address] [place] [address] 11/16/2023 11:30 AM EDT Office Visit Gastroenterology [address] [place] [address] Rina Nicole CRNP 132 [facility] [place] [address] 11/20/2023 11:20 AM EDT Office Visit Family Medicine [address] [place] [phone] Shonda Fields MD [address] [place] [address] [place] [address] 12/25/2023 1:30 PM EDT Office Visit Cardiology, [place] [facility] [address] [place] [address] Dulce Boudreaux CRNP [address] [place] [address] 02/13/2024 9:30 AM EDT Cardiac Studies Cardiology, [facility] [address] [facility] [place] [address] [facility] [address] [place] [address] Scheduled Referrals Name Type Priority Associated Diagnoses Orde r Schedule PODIATRY REFERRAL OP Referral Within 30 days (routine) Pain in toes of both feet Callus Left foot pain Ordered: 09/24/2023 Health Maintenance Due Date Last Done Comments *BISPHONATE OR OTHER ACCEPTABLE MEDICATION NEEDED FOR OSTEOPOROSIS (REFER TO SMARTSET #1146) 11/25/2022 COVID-19 Vaccine ( season) 2023 05/16/2022, 05/31/2021, 10/20/2020, Additional history exists Depression Screening 10/03/2023 10/02/2022 GFR 02/21/2024 08/23/2023, 03/02, 03/12/2023, Additional history exists CKD PHOS USE SMARTSET 45358 03/13/202403/02, 03/12/2023, 03/11/2023, Additional history exists Albumin/Creatinine Ratio 05/14/2024 023, 06/27/2022, 09/02/2021, Additional history exists DTaP,Tdap,and Td Vaccines (2 - Td or Tdap) 07/06/2024 07/06/2014, 09/13/2011 CKD HGB USE SMARTSET 89240 08/23/202408/23, 03/13/2023, 03/12/2023, Additional history exists TSH 08/23/2024 08/23/2023, 06/02, 08/17/2021, Additional history exists DXA Scan 01/18/2025 01/18/2023, 05/0 11/2020, 07/28/2013 Pneumococcal Vaccine: 65+ Years Completed 05/16/2017, 04/04/2013 VITAMIN D LEVEL ONCE IN A LIFETIME-USE SMARTSET# [id number] Completed 10/09/2022, 03/10/2022, 09/02/2021, Additional history exists [...] as of this encounter Visit Diagnoses Diagnosis Pain in toes of both feet- Primary Callus Corns and callosities Left foot pain Pain in limb documented in this encounter Advance Directives Documents on File Type Date Recorded 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 Advance Directives and Living Will 01/27/2023 Christiane Chong ADVANCE DIRECTIVE / LIVING WILL Power of Sociology Faculty Member 01/27/2023 POWER OF A TTORNEY Latest Code [...] Care Agent (per Health Care Power of Sociology Faculty Member document) Coral Chong Other - (no specific identity) First Alternate Health Care Agent (per Health Care Power of Sociology Faculty Member document) [email or web address] Care Teams Clinical Leader Relationship Specialty Start Date End Date Shonda Fields MD [address] [place] [address] [place] [address] PCP - General Family Medicine 02/21/19 documented as of this encounter
--- OUTSIDE RECORDS SUMMARY | 2023-10-25 20:40 | External Medical Summary | Summary of Care ---
Author Name Unknown Organization [facility] Address [address] [place] [address] Phone [phone] Care Team Providers Care Manager Ship Name Role Phone Shonda Fields MD Primary Care Prov ider Reason for Visit * Reason Comments Follow Up Pt here for issue wi th nose. States it is "rough all over". Encounter Details Date Type Department Care Team (Late st Contact Info) Description 10/08/2023 10:20 AM EDT Office Visit Dermatology [address] [place] [address] Park Alejandra PA-C [address] [place] [address] [place] [address] Hx of nonmelanoma skin cancer*; Lentigines; Seborrheic [...] coronary artery stent placement,Coronary artery disease of match-[place] band artery of match-e-[place] band heart with stable angina pectoris (HCC) Place [...] 24 Hour (Imdur)Indications:C oronary artery disease of match-e-be-n[place]-she-wish band artery of match-e-be-nash-she-wish band heart with stable angina pectoris (HCC) TAKE [...] BLOATING/GAS 100 Tablet 5 05/04/2023 Active Pancrelipase (Ntn-Bgem-Kpek) 6238-4921 UNIT Oral Capsule Delayed Release Particles (Creon [...] artery 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match-e-be-n[place]-wish band heart with stable angina pectoris 03/18/2020 Obesity, [...] 09/13/2011 Dyslipidemia, goal LDL below 70 09/13/2011 [facility] current use of anticoagulant therapy 0 09/13/2011 [...] artery 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match-e-be-n[place]-she-wish band heart with stable angina pectoris 11/04/2018 07/25/2022 [...] mRNA, LNP-s, No Pre serve, 2-Dose Series (Youtopia) 05/31/2021,10/20/2020,09/22/2020 Covid-19, Mrna, Lnp-s, Pf, B ivalent, 30 Mcg, IM, 12 yrs and above (Youtopia) 05/16/2022 Pneumococcal Conjugate Vacc, 13 Valent (Prevnar) [...] either or our main Dermatology office in [place] at [phone]. If an emergency, please go to your [...] examples; Think sport, Think baby, María Elena, [employer], [email or web address], [place] baby. "Baby" products can be used [...] Previous Drs. Becker/Kathya and Farida NEWTON patient. Crucible Packer Documentation Patient offered outreach liaison and declined. 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 02/23/2010 CAD (coronary artery disease), match-e-be-nash-she-wish band coronary artery 2005 Cardiac pacemaker in situ 2006 Coronary bypass graft mechanical complication DVT (deep venous thrombosis) ([facility]) 2008 multiple Dyslipidemia, goal LDL below 100 09/13/2011 Esophageal reflux 09/13/2011 HTN, goal below 140/90 09/16/2011 HX-SKIN MALIGNANCY NEC 10/19/2010 Hyperlipemia Hypothyroid 2010 Hypothyroidism 09/13/2011 IBS (irritable bowel syndrome) 09/13/2011 IBS (irritable bowel syndrome) 09/13/2011 NSTEMI (non-ST elevated myocardial infarction) ([facility]) 02/21/2019 Other pulmonary embolism and infarction 2008 [...] 1-2 TABLETS FOUR TIMES DAILY NEEDED FOR BLOATING/DLS650 Tablet 5 Pancrelipase (Uoo-Dnnh-Saml) 2553-1045 UNIT Oral Capsule Delayed Release Particles (Creon [...] Alejandra PA-C 10/08/2023 9:57 AM Ref: SHONDA FIELDS[[id number]] [address] [place] [address] [place] [address] (office) [phone] (fax) PCP: SHONDA FIELDS [address] [place] [address] [place] [address] [phone] documented in this encounter Nursing Notes * [...] Visit [facility] Coordination and Integration [address] [facility] [phone] Marsha [facility] Slider Assembler [address] [place] [address] [place] [address] 10/31/2023 10:20 AM EDT Office Visit Podiatry [facility] [address] [place] [address] Viky Hughes, JENN [address] [facility] [place] [address] 11/16/2023 11:30 AM EDT Office Visit Gastroenterology [address] [place] [address] Rina Nicole CRNP [address] [place] [address] 11/20/2023 11:20 AM EDT Office Visit Family Medicine [address] [place] [phone] Shonda Fields MD [address] [place] [address] [place] [address] 12/25/2023 1:30 PM EDT Office Visit Cardiology, [facility] [address] [place] [address] Dulce Boudreaux CRNP [address] [place] [address] 01/16/2024 11:40 AM EDT Office Visit Dermatology [address] [place] [address] Park Alejandra PA-C [address] [place] [address] [place] [address] 02/13/2024 9:30 AM EDT Cardiac Studies Cardiology, [facility] [address] [place] [address] [facility] [address] [place] [address] 10/06/2024 12:30 PM EDT Nurse Only Ancillary [address] [place] [address] Edel Nurse [address] [place] [address] Health Maintenance Due Date Last Done Comments *BISPHONATE OR OTHER ACCEPTABLE MEDICATION NEEDED FOR OSTEOPOROSIS (REFER TO SMARTSET #1146) 11/25/2022 COVID-19 Vaccine ( season) 2023 05/16/2022, 05/31/2021, 10/20/2020, Additional history exists GFR 02/21/2024 08/23/2023, 03/02, 03/12/2023, Additional history exists CKD PHOS USE SMARTSET 75321 03/13/202403/02, 03/12/2023, 03/11/2023, Additional history exists Albumin/Creatinine Ratio 05/14/2024 023, 06/27/2022, 09/02/2021, Additional history exists DTaP,Tdap,and Td Vaccines (2 - Td or Tdap) 07/06/2024 07/06/2014, 09/13/2011 CKD HGB USE SMARTSET 00176 08/23/202408/23, 03/13/2023, 03/12/2023, Additional history exists TSH 08/23/2024 08/23/2023, 06/02, 08/17/2021, Additional history exists Depression Screening 10/04/2024 10/05/2023 DXA Scan 01/18/2025 01/18/2023, 05/0 11/2020, 07/28/2013 Pneumococcal Vaccine: 65+ Years Completed 05/16/2017, 04/04/2013 VITAMIN D LEVEL ONCE IN A LIFETIME-USE SMARTSET# [id number] Completed 10/09/2022, 03/10/2022, 09/02/2021, Additional history exists [...] interpreted or resulted by a [facility] or [facility] contracted radiologist. Park Alejandra PA-C RADIOLOGY (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 Advance Directives and Living Will 01/27/2023 Christiane Chong ADVANCE DIRECTIVE / LIVING WILL Power of Front Services Agent 01/27/2023 POWER OF A TTORNEY Latest Code [...] Care Agent (per Health Care Power of Front Services Agent document) [email or web address] Coral Chong Other - (no specific identity) First Alternate Health Care Agent (per Health Care Power of Front Services Agent document) [email or web address] Care Teams Manager Ship Relationship Specialty Start Date End Date Shonda Fields MD [address] [place] [address] [place] [phone] PCP - General Family Medicine 02/21/19 documented as of this encounter
--- OUTSIDE RECORDS SUMMARY | 2023-10-25 20:41 | External Medical Summary | Summary of Care ---
Author Name Unknown Organization [facility] Address [address] [place] [address] Phone [phone] Care Team Providers Care Hydrogenation Operator Name Role Phone Shonda Fields MD Primary Care Prov ider Reason for Visit * Reason Onset Date Comments Nurse Documentation 08/30/2023 Encounter Details Date Type Department Care Team (Late st Contact Info) Description 08/30/2023 10:00 AM EST Scheduled Telephone Ancillary Evan Prabhakar[address] [place] [address] Nurse Philipp Follow Up Phone Call Schedule [address] [place] [address] Allergies Active Allergy Reactions Criticality Noted Date [...] coronary artery stent placement,Coronary artery disease of [place] artery of [place] heart with stable angina pectoris (HCC) Place [...] 24 Hour (Imdur)Indications: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) TAKE [...] BLOATING/GAS 100 Tablet 5 05/04/2023 Active Pancrelipase (Gox-Rslf-Zpuv) 2810-3486 UNIT Oral Capsule Delayed Release Particles (Creon [...] artery 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[place] heart with stable angina pectoris 03/18/2020 Obesity, [...] 09/13/2011 Dyslipidemia, goal LDL below 70 09/13/2011 [facility] current use of anticoagulant therapy 0 09/13/2011 [...] artery 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[place] heart with stable angina pectoris 11/04/2018 07/25/2022 [...] mRNA, LNP-s, No Pre serve, 2-Dose Series ([employer]) 05/31/2021,10/20/2020,09/22/2020 Covid-19, Mrna, Lnp-s, Pf, B ivalent, 30 Mcg, IM, 12 yrs and above ([employer]) 05/16/2022 Pneumococcal Conjugate Vacc, 13 Valent (Prevnar) [...] encounter Miscellaneous Notes * Telephone Encounter - Kari James CMA - 08/31/2023 3:01 PM EST She is ok with this. She is already scheduled for a follow up with Dr. Joshua Oseguera in October for an appointment. * Telephone Encounter - Shonda Fields MD - 08/30/2023 6:16 PM EST OK. I would recommend continuing the 100mg dose and we can check in again in 2 months. * Telephone Encounter - Kelly Lennon LPN - 08/30/2023 10:25 AM EST I called pt to discuss sertraline 100 mg increased dose- she states she doesn't notice much of a difference in anxiety with the increased dose of sertraline. documented in this encounter Plan of Treatment Upcoming Encounters Date Type Department Care Team (Late st Contact Info) Description 10/03/2023 11:50 AM EDT Office Visit Vascular Surgery, [facility] [address] [facility] [place] [address] Zack Alcocer MD [address] [facility] [place] [id number] 10/05/2023 12:30 PM EDT Nurse Only Ancillary [address] [place] [address] [place], Nurse [address] [place] [address] 10/31/2023 10:20 AM EDT Office Visit Podiatry [facility] [address] [place] [address] Viky Hughes, DPM [address] [facility] [place] [address] 11/16/2023 11:30 AM EDT Office Visit Gastroenterology [address] [place] [address] Rina Nicole CRNP [address] [place] [address] 11/20/2023 11:20 AM EDT Office Visit Family Medicine [address] [place] [phone] Shonda Fields MD [address] [place] [address] [place] [address] 12/25/2023 1:30 PM EDT Office Visit Cardiology, [facility] [address] [place] [address] Dulce Boudreaux CRNP [address] [place] [address] 02/13/2024 9:30 AM EDT Cardiac Studies Cardiology, [facility] [address] [place] [address] [place], Pacer Clinic [facility] [address] [place] [address] Health Maintenance Due Date Last Done Comments *BISPHONATE OR OTHER ACCEPTABLE MEDICATION NEEDED FOR OSTEOPOROSIS (REFER TO SMARTSET #1146) 11/25/2022 COVID-19 Vaccine ( season) 2023 05/16/2022, 05/31/2021, 10/20/2020, Additional history exists Depression Screening 10/03/2023 10/02/2022 GFR 02/21/2024 08/23/2023, 03/02, 03/12/2023, Additional history exists CKD PHOS USE SMARTSET 10118 03/13/202403/02, 03/12/2023, 03/11/2023, Additional history exists Albumin/Creatinine Ratio 05/14/2024 023, 06/27/2022, 09/02/2021, Additional history exists DTaP,Tdap,and Td Vaccines (2 - Td or Tdap) 07/06/2024 07/06/2014, 09/13/2011 CKD HGB USE SMARTSET 21950 08/23/202408/23, 03/13/2023, 03/12/2023, Additional history exists TSH 08/23/2024 08/23/2023, 06/02, 08/17/2021, Additional history exists DXA Scan 01/18/2025 01/18/2023, 05/0 11/2020, 07/28/2013 Pneumococcal Vaccine: 65+ Years Completed 05/16/2017, 04/04/2013 VITAMIN D LEVEL ONCE IN A LIFETIME-USE SMARTSET# 44482 Completed 10/09/2022, 03/10/2022, 09/02/2021, Additional history exists [...] Documents on File Type Date Recorded 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 Advance Directives and Living Will 01/27/2023 Christiane Chong ADVANCE DIRECTIVE / LIVING WILL Power of Assistant Scientist 01/27/2023 POWER OF A TTORNEY Latest [...] Care Agent (per Health Care Power of Assistant Scientist document) [email or web address] - (no specific identity) First Alternate Health Care Agent (per Health Care Power of Assistant Scientist document) [email or web address] Hydrogenation Operator Relationship Specialty Start Date End Date Shonda Fields MD [address] [place] [address] [place] [phone] PCP - General Family Medicine 02/21/19 documented as of this encounter
--- OUTSIDE RECORDS SUMMARY | 2023-10-25 20:41 | External Medical Summary | Summary of Care ---
Author Name Unknown Organization [facility] Address [address] [place] [address] Phone [phone] Care Team Providers Care Defensive Driving Instructor Name Role Phone Shonda Fields MD Primary Care Prov ider Reason for Visit * Reason Onset Date Comments Test Results 08/16/2023 Encounter Details Date Type Department Care Team (Late st Contact Info) Description 08/16/[address] [phone] Shonda Fields MD [address] [place], [place] [address] [id number] Test Results Allergies Active Allergy Reactions Criticality [...] as of this encounter (statuses as of 08/30/2023) Medications Medication Sig Dispensed Refills Start Date [...] coronary artery stent placement,Coronary artery disease of [place] artery of [place] heart with stable angina pectoris (HCC) Place [...] 24 Hour (Imdur)Indications: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) TAKE [...] BLOATING/GAS 100 Tablet 5 05/04/2023 Active Pancrelipase (Sdk-Yntu-Inmg) [id number] UNIT Oral Capsule Delayed Release Particles (Creon [...] as of this encounter (statuses as of 08/30/2023) Active Problems Problem Noted Date Diagnosed Date [...] artery 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[place] heart with stable angina pectoris 03/18/2020 Obesity, [...] as of this encounter (statuses as of 08/30/2023) Resolved Problems Problem Noted Date Diagnosed Date [...] artery 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[place] heart with stable angina pectoris 11/04/2018 07/25/2022 Acute pain of right knee 11/30/2017 Hx of actinic keratosis 06/23/201507/2017 Irritable bowel syndrome 11/16/201208/2017 Abdominal pain 11/16/2012 08/04/2017 IBS (irritable bowel syndrome) 09/13/2011 02/21/2019 Anticoagulation management encounter 09/13/2011 11/04/2018 Dermatochalasis 06/22/2011 01/31/2018 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 0 12/23/2012 documented as of this encounter (statuses as of 08/30/2023) Immunizations Name Administration Dates Next Due COVID-19 mRNA, LNP-s, No Pre serve, 2-Dose Series ([employer]) 05/31/2021,10/20/2020,09/22/2020 Covid-19, Mrna, Lnp-s, Pf, B ivalent, 30 Mcg, IM, 12 yrs and above ([employer]) 05/16/2022 Pneumococcal Conjugate Vacc, 13 Valent (Prevnar) [...] 10/05/2023 12:30 PM EDT Nurse Only Ancillary [address] [place] [address] [place] Nurse [address] [place] [address] 10/31/2023 10:20 AM EDT Office Visit Podiatry [facility] [address] [place] [address] Viky Hughes, JENN [address] [place] [address] [place] [address] 11/16/2023 11:30 AM EDT Office Visit Gastroenterology [address] [place] [address] Rina Nicole CRNP [address] [place] [address] 11/20/2023 11:20 AM EDT Office Visit Family Medicine [address] [place] [phone] Shonda Fields MD [address] [place] [address] [place] [address] 12/25/2023 1:30 PM EDT Office Visit Cardiology, [facility] [address] [place] [address] Dulce Boudreaux CRNP [address] [place] [address] 02/13/2024 9:30 AM EDT Cardiac Studies Cardiology, [facility] [address] [place] [address] [place] Pacer Clinic [facility] [address] [facility] [place] [address] Health Maintenance Due Date Last Done Comments *BISPHONATE OR OTHER ACCEPTABLE MEDICATION NEEDED FOR OSTEOPOROSIS (REFER TO SMARTSET #1146) 11/25/2022 COVID-19 Vaccine ( season) 2023 05/16/2022, 05/31/2021, 10/20/2020, Additional history exists Depression Screening 10/03/2023 10/02/2022 GFR 02/21/2024 08/23/2023, 03/02, 03/12/2023, Additional history exists CKD PHOS USE SMARTSET 04500 03/13/202403/02, 03/12/2023, 03/11/2023, Additional history exists Albumin/Creatinine Ratio 05/14/2024 023, 06/27/2022, 09/02/2021, Additional history exists DTaP,Tdap,and Td Vaccines (2 - Td or Tdap) 07/06/2024 07/06/2014, 09/13/2011 CKD HGB USE SMARTSET 13360 08/23/202408/23, 03/13/2023, 03/12/2023, Additional history exists TSH 08/23/2024 08/23/2023, 06/02, 08/17/2021, Additional history exists DXA Scan 01/18/2025 01/18/2023, 05/0 11/2020, 07/28/2013 Pneumococcal Vaccine: 65+ Years Completed 05/16/2017, 04/04/2013 VITAMIN D LEVEL ONCE IN A LIFETIME-USE SMARTSET# 23584 Completed 10/09/2022, 03/10/2022, 09/02/2021, Additional history exists [...] Documents on File Type Date Recorded 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
--- OUTSIDE RECORDS SUMMARY | 2023-10-25 20:41 | External Medical Summary | Summary of Care ---
Author Name Unknown Organization [facility] Address [address] [place] [address] Phone [phone] Care Team Providers Care Director Of Nuclear Medicine Name Role Phone Shonda Fields MD Primary Care Prov ider Reason for Visit * Reason Onset Date Comments STAIR AAA 12/26/2022 Encounter Details Date Type Department Care Team (Late st Contact Info) Description 12/26/2022 Telephone STAIR [facility] [address] [place] [address] Program, Stair [address] [place] [address] STAIR [facility] Allergies Active Allergy Reactions Criticality [...] MG PO TBEC 1 TABLET DAILY 0 07/22/19 15 Active acetaminophen (TYLENOL) 500 MG Tablet Take 2 Tablets by mouth every 8 hours as needed for Pain. 0 Active Diclofenac Sodium 1 % External Gel (Voltaren)Indicat ions:Shoulder arthritis Apply topically to affected area daily. 100 g 1 03/14/20 21 Active Vitamin D3 25 MCG Oral Tablet 5 Tablets. 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 up to 3 doses in 15 minutes 150 Tablet 3 12/01/19 22 Active Zoster Vac Recomb Adjuvanted 50 MCG/0.5ML Intramuscular Suspension Reconstituted (Shingrix)Indicat ions:Need for shingles vaccine Inject 0.5 mL into a large muscle now and repeat dose in 60 to 180 days 1 Each 1 03/10/20 22 Active Additional Information Patient not taking.Reported on 06/05/2023 Hydrocortisone 2.5 % External CreamIndications: Dermatitis Apply to affected area nightly as needed for up to a week. Take at least a 2 week break between treatments. 28 g 0 04/05/20 22 Active Calcium 600-D 600-400 MG-UNIT Oral Tablet Take 1 Tablet by mouth in the morning. In the morning.. 0 02/02/20 22 Active Cholestyramine 4 GM Oral Packet (Questran) Take 1 Packet by mouth every other day. Mixed with liquid. 90 Packet 1 07/13/19 23 Active amLODIPine Besylate 5 MG Oral Tablet (Norvasc)Indicati ons:HTN, goal below 140/90 Take 1 Tablet by mouth in the morning. 30 Tablet 5 12/20/19 23 Active HYDROcodone-Aceta minophen 5-325 MG Oral TabletIndications :Left wrist sprain, subsequent encounter Take 1 Tablet by mouth 2 times a day as needed for Pain, Severe. 30 Tablet 0 07/19/19 22 023 Discontinued(Sd dication List Clean Up) Ondansetron 4 MG Oral Tablet Disintegrating (Zofran)Indicatio ns:Vomiting and diarrhea Place on tongue 1 Tablet every 8 hours as needed for Nausea. dissolve on tongue. 20 Tablet 0 08/17/19 22 023 Discontinued(Re fill) Dicyclomine HCl 10 MG Oral Capsule (Bentyl)Indicatio ns:Gastroesophage al reflux disease without esophagitis Take by mouth 1 Capsule as needed in the morning AND 1 Capsule as needed at noon AND 1 Capsule as needed in the evening AND 1 Capsule as needed before bedtime for Indigestion. For abdominal pain. 120 Capsule 5 09/02/19 22 023 Discontinued(Re fill) Famotidine 20 MG Oral Tablet (Pepcid)Indicatio ns:Gastritis, presence of bleeding unspecified, unspecified chronicity, unspecified gastritis type Take by mouth 1 Tablet 2 times a day as needed for Heartburn. 60 Tablet 5 11/17/19 22 023 Discontinued Coreg CR 40 MG Oral Capsule Extended Release 24 HourIndications:P aroxysmal atrial fibrillation (HCC) TAKE 1 CAPSULE DAILY 90 Capsule 3 11/23/19 22 023 Discontinued(Me dication/Dose Changed) Isosorbide Mononitrate ER 60 MG Oral Tablet Extended Release 24 Hour (Imdur)Indication s:Coronary artery disease of [place] artery of [place] heart with stable angina pectoris (HCC) TAKE 2 TABLETS IN THE MORNING AND 1 TABLET IN THE EVENING 270 Tablet 3 01/25/20 22 023 Discontinued Warfarin Sodium 2 MG Oral Tablet (Coumadin)Indicat ions:History of DVT (deep vein thrombosis),Histo ry of pulmonary embolism,Paroxysm al atrial fibrillation (HCC),Anticoagula tion management encounter,halfway current use of anticoagulant therapy Take 2 mg (1 tablet) by mouth each evening OR as directed by anticoagulation clinic 100 Tablet 3 02/02/20 22 023 Discontinued ALPRAZolam 0.25 MG Oral Tablet (xaNAX)Indication s:Stress TAKE ONE TABLET BY MOUTH THREE TIMES DAILY NEEDED FOR ANXIETY OR INSOMNIA 30 Tablet 2 03/10/20 22 023 Discontinued(Re fill) Coreg CR 20 MG Oral Capsule Extended Release 24 HourIndications:H TN, goal below 140/90,Paroxysmal atrial fibrillation (HCC) TAKE 1 CAPSULE EVERY EVENING (THIS IS IN ADDITION TO THE 40 MG CAPSULE IN THE MORNING) Strength: 20 mg 90 Capsule 3 07/07/19 23 023 Discontinued(Me dication/Dose Changed) Premarin 0.625 MG/GM Vaginal Cream (Estrogens Conjugated)Indica tions:Urinary incontinence, nocturnal enuresis Administer 1 g into the vagina at bedtime. Nightly for 1 week then 2 times per week afterward. 42.5 g 5 07/10/19 23 023 Discontinued([place] preference/disc ontinuation) Simethicone 80 MG Oral Tablet ChewableIndicatio ns:Esophageal spasm CHEW 1-2 TABLETS FOUR TIMES DAILY NEEDED FOR BLOATING/GAS 100 Tablet 5 09/15/19 23 023 Discontinued(Re fill) Levothyroxine Sodium 50 MCG Oral Tablet (Levoxyl)Indicati ons:Acquired hypothyroidism Take by mouth 1 Tablet in the morning. (at least 30 min prior to breakfast or other meds). 90 Tablet 1 09/20/19 23 023 Discontinued(Re fill) Sertraline HCl 100 MG Oral Tablet (Zoloft)Indicatio ns:Adjustment disorder with anxious mood Take 1 Tablet by mouth in the morning. 30 Tablet 5 10/05/19 23 023 Discontinued Amoxicillin-Pot Clavulanate 875-125 MG Oral Tablet (Augmentin) Take 1 Tablet by mouth in the morning and 1 Tablet before bedtime. Do all this for 10 days. 20 Tablet 0 12/21/19 23 023 Discontinued documented as of this encounter (statuses as [...] artery 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[place] heart with stable angina pectoris 03/18/2020 Obesity, [...] 09/13/2011 Dyslipidemia, goal LDL below 70 09/13/2011 halfway current use of anticoagulant therapy 0 09/13/2011 [...] artery 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[place] heart with stable angina pectoris 11/04/2018 07/25/2022 [...] mRNA, LNP-s, No Pre serve, 2-Dose Series ([employer]) 05/31/2021,10/20/2020,09/22/2020 Covid-19, Mrna, Lnp-s, Pf, B ivalent, 30 Mcg, IM, 12 yrs and above ([employer]) 05/16/2022 Pneumococcal Conjugate Vacc, 13 Valent (Prevnar) [...] do you have serious difficulty h earing? Yes 03/23/2020 Are you blind or do you have serious difficulty seeing, even when wearing glasses? No 03/23/2020 Do you have serious difficul ty walking or climbing stairs? (5 years old or older) No 03/23/2020 Do you have difficulty dress ing or bathing? (5 years old or older) No 03/23/2020 Because of a physical, menta l, or emotional condition, do you have difficulty doing errands alone such as visiting a doctor s office or shopping? (15 years old or older) No 03/23/20 20 Cognitive Status Response Date of Assessm ent Because of a physical, menta l, or emotional condition, do you have serious difficulty concentrating, remembering, or making decisions? (5 years old or older) No 03/23/2020 documented as of this encounter Miscellaneous Notes * Telephone Encounter - Ema Esquivel LPN - 08/30/2023 9:00 AM EST AAA - Communication to Patient Patient no showed to appt yesterday. Called and spoke to patient. States she cancelled appt online but must not have done it correctly. Patient is asking to be rescheduled with Dr Alcocer at [facility]. No availability. Patient is aware she will be receiving a call from scheduling. Ema Esquivel LPN Coordinator STAIR (System to Track Abnormalities of Importance Reliably) [phone] * Telephone Encounter - Ema Esquivel LPN - 12/26/2022 9:53 AM EDT AAA - Clinical Summary Name: Milena Lozoya Age: [age] year old AAA Review: Follow up Patient Identified by: NLP Report Imaging Interpretation: CT Type of Result: Aortic Ectasia 2.6 to 2.9 cm AAA Care Plan Recommendation: Aortic Duplex - details below Details: in 1 year Next steps: No action needed at this time. Patient is already established with Dr Alcocer. Was seen 08/16/22 and is to follow up in one year with imaging prior. Will continue to follow. Patient managed in STAIR Program for Abdominal Aortic Aneurysm - banner added Ema Esquivel LPN Coordinator STAIR (System to Track Abnormalities of Importance Reliably) CT ABD/PELVIS WO IV/ORAL CONTRAST 12/18/2022 Narrative EXAM EXAM: CT ABD/PELVIS WO IV/ORAL CONTRAST DATE and TIME: 12/18/2022 9:13 am HISTORY CLINICAL INFORMATION: left flank pain, hematuria, ?kidney stone TECHNIQUE Oral Contrast: Oral contrast was not administered. IV Contrast: No IV Contrast used Abdomen/Pelvis: without intravenous contrast COMPARISON CT abdomen/pelvis 07/31/2022 FINDINGS LOWER CHEST: HEART(visualized): Multi chamber cardiomegaly. Subendocardial fatty deposition at the left ventricular apex. LUNG BASES: Unremarkable ABDOMEN/PELVIS: LIVER: Unremarkable BILE DUCTS: Unremarkable GALLBLADDER: Surgically absent. PANCREAS: There is diffuse infiltration at the tail the pancreas. There is a 3.9 x 3.5 cm distal pancreatic body cystic lesion previously 2.6 x 2.2 cm. The previous cystic lesion at the tail the pancreas is now more ill-defined with edema. SPLEEN: Infiltration at the splenic hilum. ADRENALS: Unremarkable KIDNEYS/URETERS: A 2.0 cm left lower pole simple cystic lesion, 7 Hounsfield units. A 1.1 cm anterior right interpolar hypoattenuating lesion, -90 Hounsfield units consistent with a benign angiomyolipoma. BLADDER: Collapsed. Perivesicular haziness. BOWEL: The absence of oral contrast limits evaluation of the bowel. The small and large bowel are normal caliber. The descending colon is contiguous with inflammatory change at the pancreatic tail. There are sigmoid diverticula without evidence of acute diverticulitis. 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 Limited evaluation of the vasculature. Mild calcified plaque. Fusiform dilation of the distal abdominal aorta. REPRODUCTIVE ORGANS: Air in the vagina PERITONEUM/RETROPERITONEUM: No intraperitoneal free air. ABDOMINAL WALL/SOFT TISSUES: Midline incisional scar. BONES: Unremarkable Impression IMPRESSION 1. Diffuse infiltration at the distal body and tail the pancreas consistent with pancreatitis. 2. Edema at the tail the pancreas which may be related to pancreatitis, ruptured pancreatic tail cystic lesion, or a combination of both. Recommend a MRI pancreas with MRCP. 3. Increased size of distal pancreatic body cystic lesion. 4. Secondary inflammatory change to the spleen and descending colon. Evaluation for splenic abscessis limited. The report was submitted to the event marketing assistant at 5:37 p.m. on 12/18/2022. * Telephone Encounter - Kishan Ford CRNP - 12/26/2022 9:04 AM EDT 12/18/22 CT 2.9 cm abdominal aortic ectasia. * Telephone Encounter - Ema Esquivel LPN - 12/26/2022 8:50 AM EDT AAA - Clarification Please clarify AAA reading in the report below and respond back. Size of AAA? CT ABD/PELVIS WO IV/ORAL CONTRAST 12/18/2022 Narrative EXAM EXAM: CT ABD/PELVIS WO IV/ORAL CONTRAST DATE and TIME: 12/18/2022 9:13 am HISTORY CLINICAL INFORMATION: left flank pain, hematuria, ?kidney stone TECHNIQUE Oral Contrast: Oral contrast was not administered. IV Contrast: No IV Contrast used Abdomen/Pelvis: without intravenous contrast COMPARISON CT abdomen/pelvis 07/31/2022 FINDINGS LOWER CHEST: HEART(visualized): Multi chamber cardiomegaly. Subendocardial fatty deposition at the left ventricular apex. LUNG BASES: Unremarkable ABDOMEN/PELVIS: LIVER: Unremarkable BILE DUCTS: Unremarkable GALLBLADDER: Surgically absent. PANCREAS: There is diffuse infiltration at the tail the pancreas. There is a 3.9 x 3.5 cm distal pancreatic body cystic lesion previously 2.6 x 2.2 cm. The previous cystic lesion at the tail the pancreas is now more ill-defined with edema. SPLEEN: Infiltration at the splenic hilum. ADRENALS: Unremarkable KIDNEYS/URETERS: A 2.0 cm left lower pole simple cystic lesion, 7 Hounsfield units. A 1.1 cm anterior right interpolar hypoattenuating lesion, -90 Hounsfield units consistent with a benign angiomyolipoma. BLADDER: Collapsed. Perivesicular haziness. BOWEL: The absence of oral contrast limits evaluation of the bowel. The small and large bowel are normal caliber. The descending colon is contiguous with inflammatory change at the pancreatic tail. There are sigmoid diverticula without evidence of acute diverticulitis. 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 Limited evaluation of the vasculature. Mild calcified plaque. Fusiform dilation of the distal abdominal aorta. REPRODUCTIVE ORGANS: Air in the vagina PERITONEUM/RETROPERITONEUM: No intraperitoneal free air. ABDOMINAL WALL/SOFT TISSUES: Midline incisional scar. BONES: Unremarkable Impression IMPRESSION 1. Diffuse infiltration at the distal body and tail the pancreas consistent with pancreatitis. 2. Edema at the tail the pancreas which may be related to pancreatitis, ruptured pancreatic tail cystic lesion, or a combination of both. Recommend a MRI pancreas with MRCP. 3. Increased size of distal pancreatic body cystic lesion. 4. Secondary inflammatory change to the spleen and descending colon. Evaluation for splenic abscessis limited. The report was submitted to the event marketing assistant at 5:37 p.m. on 12/18/2022. documented in this encounter Plan of Treatment Upcoming Encounters Date Type Department Care Team (Late st Contact Info) Description 08/30/2023 10:00 AM EST Scheduled Telephone Ancillary Janine Segal [address] [place] [address] [place], Nurse Follow Up Phone Call Schedule [address] [place] [address] Arrived 10/05/2023 12:30 PM EDT Nurse Only Ancillary [address] [place] [address] Carlos Eduardoey, Nurse [address] [place] [address] 10/31/2023 10:20 AM EDT Office Visit Podiatry [facility] [address] [place] [address] Viky Hughes, JENN [address] [place] [address] [place] [address] 11/16/2023 11:30 AM EDT Office Visit Gastroenterology [address] [place] [address] Rina Nicole CRNP [address] [place] [address] 11/20/2023 11:20 AM EDT Office Visit Family Medicine [address] [place] [phone] Shonda Fields MD [address] [place] [address] [place] [address] 12/25/2023 1:30 PM EDT Office Visit Cardiology, [facility] [address] [address] Dulce Boudreaux CRNP [address] [place] [address] 02/13/2024 9:30 AM EDT Cardiac Studies Cardiology, [facility] [address] [place] [address] [place] [address] [facility] [place] [address] Health Maintenance Due Date Last Done Comments *BISPHONATE OR OTHER ACCEPTABLE MEDICATION NEEDED FOR OSTEOPOROSIS (REFER TO SMARTSET #1146) 11/25/2022 COVID-19 Vaccine ( season) 2023 05/16/2022, 05/31/2021, 10/20/2020, Additional history exists Depression Screening 10/03/2023 10/02/2022 GFR 02/21/2024 08/23/2023, 03/02, 03/12/2023, Additional history exists CKD PHOS USE SMARTSET 83367 03/13/202403/02, 03/12/2023, 03/11/2023, Additional history exists Albumin/Creatinine Ratio 05/14/2024 023, 06/27/2022, 09/02/2021, Additional history exists DTaP,Tdap,and Td Vaccines (2 - Td or Tdap) 07/06/2024 07/06/2014, 09/13/2011 CKD HGB USE SMARTSET 38098 08/23/202408/23, 03/13/2023, 03/12/2023, Additional history exists TSH 08/23/2024 08/23/2023, 06/02, 08/17/2021, Additional history exists DXA Scan 01/18/2025 01/18/2023, 05/0 11/2020, 07/28/2013 Pneumococcal Vaccine: 65+ Years Completed 05/16/2017, 04/04/2013 VITAMIN D LEVEL ONCE IN A LIFETIME-USE SMARTSET# [id number] Completed 10/09/2022, 03/10/2022, 09/02/2021, Additional history exists [...] Not on filedocumented as of this encounter Additional Health Concerns Infection Onset Date Last Indicated Resolved Time C. difficile 11/11/2021 11/11/2021 03/07/2023 1:30 PM EDT C. difficile Rule-Out 04/27/2023 04/27/20232022 11:15 PM EDT Gastrointestinal Rule-Out 04/27/2023 04/27/2023 9:45 AM EDT C. difficile 04/27/2023 04/27/2023 05/27/2023 12:1 9 AM EST documented as of this encounter Advance Directives Documents on File Type Date Recorded Patient Outpatient Program Coordinator Expl anation Advance Directives and Living Will 01/27/2023 Christiane Chong ADVANCE DIRECTIVE / LIVING WILL Power of Curtain Mender 01/27/2023 POWER OF A TTORNEY Latest Code [...] Care Agent (per Health Care Power of Curtain Mender document) [email or web address] - (no specific identity) First Alternate Health Care Agent (per Health Care Power of Curtain Mender document) [email or web address] Care Teams Director Of Nuclear Medicine Relationship Specialty Start Date End Date Shonda Fields MD [address] [place] [address] [place] [phone] PCP - General Family Medicine 02/21/19 documented as of this encounter
--- OUTSIDE RECORDS SUMMARY | 2023-10-25 20:41 | External Medical Summary | Summary of Care ---
Author Name Unknown Organization [facility] Address [address] [place] [address] Phone [phone] Care Team Providers Care Bilingual Inside Sales Representative Name Role Phone Shonda Fields MD Primary Care Prov ider Reason for Visit * Reason Onset Date Comments Nurse Documentation 08/30/2023 Encounter Details Date Type Department Care Team (Late st Contact Info) Description 08/30/2023 10:00 AM EST Scheduled Telephone Ancillary Evan Prabhakar[address] [place] [address] Nurse Philipp Follow Up Phone Call Schedule [address] [place] [address] Arrived Allergies Active Allergy Reactions Criticality Noted Date [...] coronary artery stent placement,Coronary artery disease of [place] artery of [place] heart with stable angina pectoris (HCC) Place [...] 24 Hour (Imdur)Indications:C oronary artery disease of [place] artery of [place] heart with stable angina pectoris (HCC) TAKE [...] BLOATING/GAS 100 Tablet 5 05/04/2023 Active Pancrelipase (Kaa-Jaee-Qyxy) 8786-0450 UNIT Oral Capsule Delayed Release Particles (Creon [...] artery 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[place] heart with stable angina pectoris 03/18/2020 Obesity, [...] artery 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[place] heart with stable angina pectoris 11/04/2018 07/25/2022 [...] mRNA, LNP-s, No Pre serve, 2-Dose Series ([employer]) 05/31/2021,10/20/2020,09/22/2020 Covid-19, Mrna, Lnp-s, Pf, B ivalent, [...] encounter Miscellaneous Notes * Telephone Encounter - Shonda Fields MD [...] 11:50 AM EDT Office Visit Vascular Surgery, [address] [place] [address] Zack Alcocer MD [address] [place] [address] 10/05/2023 12:30 PM EDT Nurse Only Ancillary [address] [place] [address] [place], Nurse [address] [place] [address] 10/31/2023 10:20 AM EDT Office Visit Podiatry [facility] [place] [address] Viky Hughes, JENN [address] [place] [address] [place] [address] 11/16/2023 11:30 AM EDT Office Visit Gastroenterology [address] [place] [address] Rian Nicole CRNP [address] [place] [address] 11/20/2023 11:20 AM EDT Office Visit Family Medicine [address] [place] [phone] Shonda Fields MD [address] [place] [address] [place] [address] 12/25/2023 1:30 PM EDT Office Visit Cardiology, [facility] [address] [place] [address] Dulce Boudreaux CRNP [address] [place] [address] 02/13/2024 9:30 AM EDT Cardiac Studies Cardiology, [facility] [address] [place] [address] [facility] [address] [place] [address] Health Maintenance Due Date Last Done Comments *BISPHONATE OR OTHER ACCEPTABLE MEDICATION NEEDED FOR OSTEOPOROSIS (REFER TO SMARTSET #1146) 11/25/2022 COVID-19 Vaccine ( season) 2023 05/16/2022, 05/31/2021, 10/20/2020, Additional history exists Depression Screening 10/03/2023 10/02/2022 GFR 02/21/2024 08/23/2023, 03/02, 03/12/2023, Additional history exists CKD PHOS USE SMARTSET 17365 03/13/202403/02, 03/12/2023, 03/11/2023, Additional history exists Albumin/Creatinine Ratio 05/14/2024 023, 06/27/2022, 09/02/2021, Additional history exists DTaP,Tdap,and Td Vaccines (2 - Td or Tdap) 07/06/2024 07/06/2014, 09/13/2011 CKD HGB USE SMARTSET 60752 08/23/202408/23, 03/13/2023, 03/12/2023, Additional history exists TSH 08/23/2024 08/23/2023, 06/02, 08/17/2021, Additional history exists DXA Scan 01/18/2025 01/18/2023, 05/11/2020, 07/28/2013 Pneumococcal Vaccine: 65+ Years Completed 05/16/2017, 04/04/2013 VITAMIN D LEVEL ONCE IN A LIFETIME-USE SMARTSET# 71390 Completed 10/09/2022, 03/10/2022, 09/02/2021, Additional history exists [...] Documents on File Type Date Recorded 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 Advance Directives and Living Will 01/27/2023 Christiane Chong ADVANCE DIRECTIVE / LIVING WILL Power of Entry Engineer 01/27/2023 POWER OF A TTORNEY Latest Code [...] Care Agent (per Health Care Power of Entry Engineer document) [email or web address] Other - (no specific identity) First Alternate Health Care Agent (per Health Care Power of Entry Engineer document) che Care Teams Bilingual Inside Sales Representative Relationship Specialty Start Date End Date Shonda Fields MD [address] [place] [address] [place] [address] PCP - General Family Medicine 02/21/19 documented as of this encounter
--- OUTSIDE RECORDS SUMMARY | 2023-10-25 20:41 | External Medical Summary | Summary of Care ---
Author Name Unknown Organization [facility] Address [address] [place] [address] Phone [phone] Care Team Providers Care Weapons Engineer Name Role Phone Shonda Fields MD Primary Care Prov ider Encounter Details Date Type Department Care Team (Late st Contact Info) Description 08/02/2023 Telephone Family Medicine [address] [phone] Shonda Fields MD [address] [place] [id number] Allergies Active Allergy Reactions Criticality Noted [...] as of this encounter (statuses as of 08/27/2023) Medications Medication Sig Dispensed Refills Start Date [...] coronary artery stent placement,Coronary artery disease of [place] artery of [place] heart with stable angina pectoris (HCC) Place [...] taking.Reported on 06/05/2023 Hydrocortisone 2.5 % External CreamIndications:De rmatitis Apply [...] Active Ondansetron 4 MG Oral Tablet Disintegrating (Zofran)Indications :Vomiting and diarrhea Place 1 Tablet on tongue every 8 hours as needed for Nausea. dissolve on tongue. 30 Tablet 5 12/27/2022 Active Potassium Chloride Debi ER 20 MEQ Oral Tablet Extended Release Take 1 Tablet by mouth in the morning and 1 Tablet before bedtime. 60 Tablet 11 01/23/2023 Active ALPRAZolam 0.25 MG Oral Tablet (xaNAX)Indications: Stress [...] 24 Hour (Imdur)Indications: Coronary artery disease of [place] artery of [place] heart with stable angina pectoris (HCC) TAKE [...] BLOATING/GAS 100 Tablet 5 05/04/2023 Active Pancrelipase (Sol-Laga-Bcnj) 8786-9397 UNIT Oral Capsule Delayed Release Particles (Creon [...] (Zoloft)Indications :Adjustment disorder with anxious mood Take 0.5 Tablets by mouth in the morning. 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), R forehead BCC 01/2012, Ramon L forehead 01/2010 (Efudex) documented as of this encounter (statuses as of 08/27/2023) Resolved Problems Problem Noted Date Diagnosed Date [...] artery 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[place] heart with stable angina pectoris 11/04/2018 07/25/2022 Acute pain of right knee 11/30/2017 Hx of actinic keratosis 06/23/201507/2017 Irritable bowel syndrome 11/16/201208/2017 Abdominal pain 11/16/2012 08/04/2017 IBS (irritable bowel syndrome) 09/13/2011 02/21/2019 Anticoagulation management encounter 09/13/2011 11/04/2018 Dermatochalasis 06/22/2011 01/31/2018 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 0 12/23/2012 documented as of this encounter (statuses as of 08/27/2023) Immunizations Name Administration Dates Next Due COVID-19 mRNA, LNP-s, No Pre serve, 2-Dose Series ([employer]) 05/31/2021,10/20/2020,09/22/2020 Covid-19, Mrna, Lnp-s, Pf, B ivalent, 30 Mcg, IM, 12 yrs and above ([employer]) 05/16/2022 Pneumococcal Conjugate Vacc, 13 Valent (Prevnar) 05/16/2017 Pneumococcal Polysaccharide PPV23 (Pneumovax) 04/04/2013 Season Influenza, Quad, PF, Adjuvanted, 65+ Yrs, IM (FLUAD) 04/08/2020 Seasonal Influenza, Quadriva lent Hd (Fluzone Hd) 06/09/2022,05/12/2021 Seasonal Influenza, Split, I IV3, With Preserve, [...] Telephone Encounter - Kelly Lennon LPN - 08/03/2023 3:46 PM EST I called pt- Pt states it has been getting better and she does not think it's broken. She states she just plans on seeing Dr. Chakraborty at her appt that is already scheduled rather than coming in today or Sunday for an Xray, at the appointment they can decide whether the Xray is still needed. I let her know if she changes her mind in the meantime, the order is in the computer. * Telephone Encounter - Shonda Fields MD - 08/02/2023 5:15 PM EST Please ask her to come in tomorrow for Xray and notify me when it's done. * Telephone Encounter - Shonda Fields MD - 08/02/2023 5:14 PM EST ----- Message from Genna Escamilla RN sent at 08/02/2023 1:09 PM EST ----- Advised to be seen in office today. No appts in PCP office today or tomorrow. Pt not interested in traveling/UC/ED today. Message to be sent to PCP for further advice. Office to please notify pt of any provider advice. documented in this encounter Plan of Treatment Upcoming Encounters Date Type Department Care Team (Late st Contact Info) Description 08/28/2023 11:00 AM EST Cardiac Studies Cardiac Studies [address] [place] [address] 08/29/2023 2:30 PM EST Office Visit Vascular Surgery, [facility] [address] [facility] [place] [address] Zack Alcocer MD [address] [place] [address] [place] [address] 08/30/2023 10:00 AM EST Scheduled Telephone Ancillary [address] [place] [address] Philipp, Nurse Follow Up Phone Call Schedule [address] [place] [address] 10/05/2023 12:30 PM EDT Nurse Only Ancillary [address] [place] [address] Carlos Eduardoey, Nurse [address] [place] [address] 10/31/2023 10:20 AM EDT Office Visit Podiatry [facility] [address] [facility] [place] [address] Viky Hughes DPM [address] [place] [address] [place] [address] 11/16/2023 11:30 AM EDT Office Visit Gastroenterology [address] [place] [address] Rina Nicole CRNP [address] [facility] [place] [address] 11/20/2023 11:20 AM EDT Office Visit Family Medicine [address] [place] [phone] Shonda Fields MD [address] [place] [address] [place] [address] 12/25/2023 1:30 PM EDT Office Visit Cardiology, [facility] [address] [place] [address] Dulce Boudreaux CRNP [address] [place] [address] 02/13/2024 9:30 AM EDT Cardiac Studies Cardiology, [facility] [address] [place] [address] [place], Pacer Clinic [facility] [address] [place] [address] Scheduled Orders Name Type Priority Associated Diagnoses Orde r Schedule XR ANKLE 3 OR MORE VIEWS Medical Imaging Routine Injury of right ankle, initial encounter Ordered: 08/02/2023 Health Maintenance Due Date Last Done Comments *BISPHONATE OR OTHER ACCEPTABLE MEDICATION NEEDED FOR OSTEOPOROSIS (REFER TO SMARTSET #1146) 11/25/2022 COVID-19 Vaccine ( season) 2023 05/16/2022, 05/31/2021, 10/20/2020, Additional history exists Depression Screening 10/03/2023 10/02/2022 GFR 02/21/2024 08/23/2023, 03/02, 03/12/2023, Additional history exists CKD PHOS USE SMARTSET 22819 03/13/202403/02, 03/12/2023, 03/11/2023, Additional history exists Albumin/Creatinine Ratio 05/14/2024 023, 06/27/2022, 09/02/2021, Additional history exists DTaP,Tdap,and Td Vaccines (2 - Td or Tdap) 07/06/2024 07/06/2014, 09/13/2011 CKD HGB USE SMARTSET 44658 08/23/202408/23, 03/13/2023, 03/12/2023, Additional history exists TSH 08/23/2024 08/23/2023, 06/02, 08/17/2021, Additional history exists DXA Scan 01/18/2025 01/18/2023, 05/0 11/2020, 07/28/2013 Pneumococcal Vaccine: 65+ Years Completed 05/16/2017, 04/04/2013 VITAMIN D LEVEL ONCE IN A LIFETIME-USE SMARTSET# 20719 Completed 10/09/2022, 03/10/2022, 09/02/2021, Additional history exists [...] as of this encounter Visit Diagnoses Diagnosis Injury of right ankle, initial encounter- Primary documented in this encounter Advance Directives Documents on File Type Date Recorded Patient Supervisor Research Kennel Expl anation Advance Directives and Living Will 01/27/2023 Christiane Chong ADVANCE DIRECTIVE / LIVING WILL Power of Student Outreach Coordinator 01/27/2023 POWER OF A TTORNEY Latest Code [...] Care Agent (per Health Care Power of Student Outreach Coordinator document) Coral Chong Other - (no specific identity) First Alternate Health Care Agent (per Health Care Power of Student Outreach Coordinator document) [email or web address] Care Teams Weapons Engineer Relationship Specialty Start Date End Date Shonda Fields MD [address] [place] [address] [place] [address] PCP - General Family Medicine 02/21/19 documented as of this encounter
--- OUTSIDE RECORDS SUMMARY | 2023-10-25 20:41 | External Medical Summary | Summary of Care ---
Author Name Unknown Organization [facility] Address [address] [place] [address] Phone [phone] Care Team Providers Care Command Post Superintendent Name Role Phone Shonda Fields MD Primary Care Prov ider Reason for Visit * Reason Onset Date Comments Nurse Documentation 08/30/2023 Encounter Details Date Type Department Care Team (Late st Contact Info) Description 08/30/2023 10:00 AM EST Scheduled Telephone Ancillary Evan Prabhak[address] [place] [address] Nurse Philipp Follow Up Phone Call Schedule [address] [place] [address] Arrived Allergies Active Allergy Reactions Criticality Noted [...] coronary artery stent placement,Coronary artery disease of [place] artery of [place] heart with stable angina pectoris (HCC) Place [...] 24 Hour (Imdur)Indications: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..] 10/05/2023 12:30 PM EDT Nurse Only Ancillary [address] [place] [address] Nurse Edel [address] [place] [address] 10/31/2023 10:20 AM EDT Office Visit Podiatry [facility] [address] [place] [address] Viky Hughes DPM [address] [facility] [place] [address] 11/16/2023 11:30 AM EDT Office Visit Gastroenterology [address] [place] [address] Rina Nicole CRNP [address] [place] [address] 11/20/2023 11:20 AM EDT Office Visit Family Medicine [address] [place] [phone] Shonda Fields MD [address] [place] [address] [place] [address] 12/25/2023 1:30 PM EDT Office Visit Cardiology, [facility] [address] [place] [address] Dulce Boudreaux CRNP [address] [place] [address] 02/13/2024 9:30 AM EDT Cardiac Studies Cardiology, [facility] [address] [place] [address] [place] Pacer Clinic [facility] [address] [place] [address] Health Maintenance Due Date Last Done Comments *BISPHONATE OR OTHER ACCEPTABLE MEDICATION NEEDED FOR OSTEOPOROSIS (REFER TO SMARTSET #1146) 11/25/2022 COVID-19 Vaccine ( season) 2023 05/16/2022, 05/31/2021, 10/20/2020, Additional history exists Depression Screening 10/03/2023 10/02/2022 GFR 02/21/2024 08/23/2023, 03/02, 03/12/2023, Additional history exists CKD PHOS USE SMARTSET 14887 03/13/202403/02, 03/12/2023, 03/11/2023, Additional history exists Albumin/Creatinine Ratio 05/14/2024 023, 06/27/2022, 09/02/2021, Additional history exists DTaP,Tdap,and Td Vaccines (2 - Td or Tdap) 07/06/2024 07/06/2014, 09/13/2011 CKD HGB USE SMARTSET 10619 08/23/202408/23, 03/13/2023, 03/12/2023, Additional history exists TSH 08/23/2024 08/23/2023, 06/02, 08/17/2021, Additional history exists DXA Scan 01/18/2025 01/18/2023, 05/0 11/2020, 07/28/2013 Pneumococcal Vaccine: 65+ Years Completed 05/16/2017, 04/04/2013 VITAMIN D LEVEL ONCE IN A LIFETIME-USE SMARTSET# [id number] Completed 10/09/2022, 03/10/2022, 09/02/2021, Additional history exists [...] Documents on File Type Date Recorded Patient 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 Miner Blasting 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 anation Advance Directives and Living Will 01/27/2023 Christiane Chong ADVANCE DIRECTIVE / LIVING WILL Power of Middle School Coach 01/27/2023 POWER OF A TTORNEY Latest Code [...] Care Agent (per Health Care Power of Middle School Coach document) [email or web address] Coral Chong Other - (no specific identity) First Alternate Health Care Agent (per Health Care Power of Middle School Coach document) [email or web address] Care Teams Command Post Superintendent Relationship Specialty Start Date End Date Shonda Fields MD [address] [place] [address] [place] [address] PCP - General Family Medicine 02/21/19 documented as of this encounter
--- OUTSIDE RECORDS SUMMARY | 2023-10-25 20:42 | External Medical Summary | Summary of Care ---
Author Name Unknown Organization [facility] Address [address] [place] [address] Phone [phone] Care Team Providers Care Electroplater Name Role Phone Shonda Fields MD Primary Care Prov ider Reason for Referral * Evaluate & Treat - Unlimited Visits (Within 10 days (routine)) - Authorized Specialty Diagnoses / Procedures Referred By Dorita davison Referred To Contact Podiatry Diagnoses Left foot pain Viky Hughes DPM [address] [place] [address] Referral ID Status Reason Start Date Expiration Date Visits Requested Visits Authorized [id number] Authorized Specialty Services Required 07/10/2023 999 999 Question Answer Referral Priority Within 10 days (routine) [facility] should this appointment be scheduled? [facility] Which condition are you referring this patient for? Routine Foot Care Medicare Patient? Yes Can Patient perform routine footcare without assistance? No Does patient have a chronic condition? Yes Has patient been seen in the past 6 months? Yes Date last seen for chronic condition: 05/31/2023 Who saw patient for chronic condition? PCP Reason for Visit * Reason Onset Date Comments Referral Requested by Specialist 07/09/2023 Encounter Details Date Type Department Care Team (Late st Contact Info) Description 07/09/2023 Telephone Podiatry [address] [place] [address] Viky Hughes, DPMeghan [address] [facility] [place] [address] Referral Requested by Specialist Allergies Active Allergy [...] as of this encounter (statuses as of 07/10/2023) Medications Medication Sig Dispensed Refills Start Date [...] FOR BLOATING/GAS 100 Tablet 5 05/04/2023 Active Sertraline HCl 100 MG Oral Tablet (Zoloft)Indications: Adjustment disorder with anxious mood Take 0.5 Tablets by mouth in the morning. 0 05/04/2023 Active Pancrelipase (Uxc-Lvhm-Yhek) [id number] UNIT Oral Capsule Delayed Release Particles (Creon [...] before bedtime. 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 therapy 0 09/13/2011 Overview: ICD-10 update of inactive term Personal history of malignant neoplasm of skin 0 10/19/2010 Overview: 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), R forehead BCC 01/2012, Ramon L forehead 01/2010 (Efudex) documented as of this encounter (statuses as of 07/10/2023) Resolved Problems Problem Noted Date Diagnosed Date Resolved Date Hypertensive kidney disease with chronic kidney disease [...] as of this encounter (statuses as of 07/10/2023) Immunizations Name Administration Dates Next Due COVID-19 mRNA, LNP-s, No Pre serve, 2-Dose Series ([employer]) 05/31/2021,10/20/2020,09/22/2020 Covid-19, Mrna, Lnp-s, Pf, B ivalent, 30 Mcg, IM, 12 yrs and above ([employer]) 05/16/2022 Pneumococcal Conjugate Vacc, 13 Valent (Prevnar) [...] encounter Miscellaneous Notes * Addendum Note - Janki Howell LPN - 07/10/2023 2:13 PM ESTAddended by: JANKI HOWELL on: 07/10/2023 02:13 PM Modules accepted: Orders * Telephone Encounter - Janki Howell LPN - 07/10/2023 2:02 PM EST Last Ref placed on 04/12/2023 New ref signed and Last OV note faxed to Orthopaedics and podiatry * Telephone Encounter - Alexandra Siu OSA - 07/09/2023 12:10 PM EST [facility] [place] [facility] [address] [place] [address] 07/09/[address] Chakraborty: This request is in regards to: Milena Lozoya : 1940 Due to Medicare guidelines for Podiatry Routine Footcare & Mycotic Nail visits, we need documented medical necessity for this patient's upcoming appointment on 07/25/2023. Moving forward, a referral will need to be placed every 6 months and must include the below information for Medicare to pay for services. Can you please assist with placing a new referral with the below outlined? 1) Can Patient perform routine footcare without assistance? (Y/N) 2) Does patient have a chronic condition? (Y/N) If yes, please list condition diagnosis 3)Has patient been seen in the past 6 months by PCP? (Y/N) If yes, please list the date Please visit the following CMS website to choose from a covered diagnosis code: https://www.cms.gov/medicare-coverage-database/view/article.aspx?[email or web address] &[email or web address] Please return your completed referral along with patient's most recent office note to our office at: [phone]. Sincerely, [facility] documented in this encounter Plan of Treatment Upcoming Encounters Date Type Department Care Team (Late st Contact Info) Description 07/25/2023 10:20 AM EST Office Visit Podiatry [facility] [address] [place] [address] Viky Hughes, JENN [address] [place] [address] [place] [address] 08/13/2023 9:30 AM EST Imaging Vascular Lab, [facility] 2nd [facility] [address] [place] [address] 08/13/2023 10:30 AM EST Imaging Vascular Lab, [facility] [address] [place] [address] 08/15/2023 1:40 PM EST Office Visit Family Medicine [address] [place] [phone] Shonda Fields MD [address] [place] [address] [place] [address] 08/29/2023 2:30 PM EST Office Visit Vascular Surgery, [address] [place] [address] Zack Alcocer MD [address] [place] [address] 10/05/2023 10:00 AM EDT Nurse Only Ancillary [address] [place] [address] [place], Nurse [address] [place] [address] 12/25/2023 1:30 PM EDT Office Visit [facility] [place] [address] Dulce Boudreaux CRNP [address] [place] [address] 02/13/2024 9:30 AM EDT Cardiac Studies Cardiology, [facility] [address] [facility] [place] [address] [facility] [address] [facility] [place] [address] Scheduled Referrals Name Type Priority Associated Diagnoses Orde r Schedule PODIATRY REFERRAL OP Referral Within 10 days (routine) Left foot pain Ordered: 07/10/2023 Health Maintenance Due Date Last Done Comments *BISPHONATE OR OTHER ACCEPTABLE MEDICATION NEEDED FOR OSTEOPOROSIS (REFER TO SMARTSET #1146) 11/25/2022 COVID-19 Vaccine ( season) 2023 05/16/2022, 05/31/2021, 10/20/2020, Additional history exists Influenza Vaccine (FLU shot) (#1) 2023 06/09/2022, 05/17/2021, 05/12/2021, Additional history exists TSH 06/27/2023 06/27/2022, 08/02, 06/03/2021, Additional history exists GFR 09/11/2023 03/13/2023, 03/02, 03/11/2023, Additional history exists Depression Screening 10/03/2023 10/02/2022 CKD HGB USE SMARTSET 11383 03/13/202403/13, 03/12/2023, 03/11/2023, Additional history exists CKD PHOS USE SMARTSET 98457 03/13/202403/02, 03/12/2023, 03/11/2023, Additional history exists Albumin/Creatinine Ratio 05/14/2024 023, 06/27/2022, 09/02/2021, Additional history exists DTaP,Tdap,and Td Vaccines (2 - Td or Tdap) 07/06/2024 07/06/2014, 09/13/2011 DXA Scan 01/18/2025 01/18/2023, 05/0 11/2020, 07/28/2013 Pneumococcal Vaccine: 65+ Years Completed 05/16/2017, 04/04/2013 VITAMIN D LEVEL ONCE IN A LIFETIME-USE SMARTSET# 47913 Completed 10/09/2022, 03/10/2022, 09/02/2021, Additional history exists GARDASIL-HPV IMMUNIZATION SERIES Aged [...] as of this encounter Visit Diagnoses Diagnosis Left foot pain- Primary Pain in limb documented in this encounter Advance Directives Documents on File Type Date Recorded Patient Bin Cleaner Expl anation Advance Directives and Living Will 01/27/2023 Christiane Chong ADVANCE DIRECTIVE / LIVING WILL Power of Well Service Floor Worker 01/27/2023 POWER OF A TTORNEY Latest Code [...] Care Agent (per Health Care Power of Well Service Floor Worker document) [email or web address] Coral Chong Other - (no specific identity) First Alternate Health Care Agent (per Health Care Power of Well Service Floor Worker document) [email or web address] Care Teams Electroplater Relationship Specialty Start Date End Date Shonda Fields MD [address] [place] [address] [place] [address] PCP - General Family Medicine 02/21/19 documented as of this encounter
--- OUTSIDE RECORDS SUMMARY | 2023-10-25 20:42 | External Medical Summary | Summary of Care ---
Author Name Unknown Organization [facility] Address [address] [place] [address] Phone [phone] Care Team Providers Care Accounting/Finance Tutor Name Role Phone Shonda Fields MD Primary Care Prov ider Reason for Visit * Reason Comments Follow Up Nail care * Evaluate & Treat - Unlimited Visits (Within 30 days (routine)) - Authorized Specialty Diagnoses / Procedures Referred By Dorita davison Referred To Contact Podiatry Diagnoses Left foot pain Shonda Fields MD [address] [place] [address] [place] [address] Referral ID Status Reason Start Date Expiration Date Visits Requested Visits Authorized [id number] Authorized Specialty Services Required 3 [phone] Encounter Details Date Type Department Care Team (Late st Contact Info) Description 07/25/2023 11:20 AM EST Office Visit Podiatry [facility] [address] [facility] [place] [address] Viky Hughes DPM [address] 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), R forehead BCC 01/2012, Ramon L forehead 01/2010 (Efudex) documented as of this encounter (statuses as of 07/25/2023) Resolved Problems Problem Noted Date Diagnosed Date [...] artery 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[place] heart with stable angina pectoris 11/04/2018 07/25/2022 Acute pain of right knee 11/30/2017 Hx of actinic keratosis 06/23/2015 06/0 07/2017 Irritable bowel syndrome 11/16/201208/2017 Abdominal pain 11/16/2012 08/04/2017 IBS (irritable bowel syndrome) 09/13/2011 02/21/2019 Anticoagulation management encounter 09/13/2011 11/04/2018 Dermatochalasis 06/22/2011 01/31/2018 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 She reports difficulty trimming her nails due to thickness and length. She has chronic kidney disease. She offers noother concerns today with exception of left lower leg edema. She notes an increase in weight when this flares. She has been unable to consistently use compression options at home. 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 CAD (coronary artery disease), duck[place] coronary artery 2006 Cardiac pacemaker in situ 2006 Coronary bypass graft mechanical complication DVT (deep venous thrombosis) ([facility]) 2009 multiple Dyslipidemia, goal LDL below 100 09/13/2011 Esophageal reflux 09/13/2011 HTN, goal below 140/90 09/16/2011 HX-SKIN MALIGNANCY NEC 10/19/2010 Hyperlipemia Hypothyroid 2010 Hypothyroidism 09/13/2011 IBS (irritable bowel syndrome) 09/13/2011 IBS (irritable bowel syndrome) 09/13/2011 NSTEMI (non-ST elevated myocardial infarction) ([facility]) 02/21/2019 Other pulmonary embolism and infarction 2009 S/P coronary artery stent placement 2005 ALLERGIES: Review of patient's allergies indicates: Allergen Reactions [...] NAUSEA AND VOMITING,ACHY Zetia [Ezetimibe] Muscle pain FOCUSED PODIATRIC EXAM: Vascular: Pedal pulses palpable including dorsalis pedis and posterior tibial artery at 1/4 bilaterally. Capillary refill time is within normal limits to all toes. Non- pitting edema noted to the lower legs, equal bilaterally. No warmth. Absence of pedal hair growth noted. Skin is mildly cool. Neurologic: Sensation (light touch) intact to the bilateral lower extremities. No hypersensitivity. No weakness. Musculoskeletal: Hammertoe right 2nd toe. No pain with palpation of right toes 2-3. Dermatological: Skin is thin, atrophic, dry. Toenails are elongated, peeling, discolored, some are thickened 1-5 bilaterally. No interdigital changes. No erythema. Ecchymosis to the dorsal right third toe. Q Codes: Q8 - Class B Findings: B2: Advanced trophic changes such as (three of the following): B2a:Hair growth (Decrease or absence) , B2b: Nail Changes (thickening) and B2d: Skin texture (thin, shiny) Q9 - Class C Findings: C2: Temperature changes (e.g., cold feet) and C3: Edema DIAGNOSTIC STUDIES: No new ASSESSMENT: 1. Chronic kidney disease, stage 3a ([facility]) 2. Onychomycosis TA T1 T2 T3 T4 T5 T6 T7 T8 T9 3. Leg edema, left PLAN: Procedure: After mild cleansing and drying of feet, toenails 1-5 bilaterally were manually and mechanically debrided without incident. A nail splitter was used to remove all incurvating edges. A roll cutter wasused to trim nail to appropriate length. An electrical bur was used in a side to side motion to reduce nail thickness, hypertrophic growth, and to smooth all edges. Patient tolerated well. They noted improvement following procedure. 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 Follow up: 3 months documented in this encounter Nursing Notes * Katelin Smith LPN - 07/25/2023 10:59 AM EST Pt presents for routine nail care, no pain in feet. documented in this encounter Plan of Treatment Upcoming Encounters Date Type Department Care Team (Late st Contact Info) Description 08/13/2023 9:30 AM EST Imaging Vascular Lab, [address] [address] 08/13/2023 10:30 AM EST Imaging Vascular Lab, [address] [address] 08/15/2023 1:40 PM EST Office Visit Family Medicine [address] [place] [phone] Shonda Fields MD [address] [place] [address] [place] [address] 08/29/2023 2:30 PM EST Office Visit Vascular Surgery, [address] [address] Zack Alcocer MD [address] [place], [place] [phone] 10/05/2023 10:00 AM EDT Nurse Only Ancillary [address] [place] [address] Movjeanineey, Nurse Annual [address] [place] [address] 10/31/2023 10:20 AM EDT Office Visit [facility] [address] Viky Hughes, JENN [address] [facility] [place] [address] 12/25/2023 1:30 PM EDT Office Visit Cardiology, [facility] [address] Dulce Boudreaux [facility] [address] 02/13/2024 9:30 AM EDT Cardiac Studies Cardiology, [facility] [address] [facility] [address] Scheduled Referrals Name Type Priority Associated Diagnoses [...] Screening 10/03/2023 10/02/2022 CKD HGB USE SMARTSET 39161 03/13/202403/13, 03/12/2023, 03/11/2023, Additional history exists CKD PHOS USE SMARTSET 39321 03/13/202403/02, 03/12/2023, 03/11/2023, Additional history exists Albumin/Creatinine Ratio 05/14/2024 023, 06/27/2022, 09/02/2021, Additional history exists DTaP,Tdap,and Td Vaccines (2 - Td or Tdap) 07/06/2024 07/06/2014, 09/13/2011 DXA Scan 01/18/2025 01/18/2023, 05/0 11/2020, 07/28/2013 Pneumococcal Vaccine: 65+ Years Completed 05/16/2017, 04/04/2013 VITAMIN D LEVEL ONCE IN A LIFETIME-USE SMARTSET# [id number] Completed 10/09/2022, 03/10/2022, 09/02/2021, Additional history exists [...] as of this encounter Visit Diagnoses Diagnosis Chronic kidney disease, stage 3a (HCC)- Primary Onychomycosis Dermatophytosis of nail Leg edema, left Edema documented in this encounter Advance Directives Documents on File Type Date Recorded 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 Advance Directives and Living Will 01/27/2023 Christiane Chong ADVANCE DIRECTIVE / LIVING WILL Power of Algorithm Developer 01/27/2023 POWER OF A TTORNEY Latest [...] Care Agent (per Health Care Power of Algorithm Developer document) [email or web address] Coral Chong Other - (no specific identity) First Alternate Health Care Agent (per Health Care Power of Algorithm Developer document) [email or web address] Care Teams Accounting/Finance Tutor Relationship Specialty Start Date End Date Shonda Fields MD [address] [place] [address] [place] [address] PCP - General Family Medicine 02/21/19 documented as of this encounter
--- OUTSIDE RECORDS SUMMARY | 2023-10-25 20:42 | External Medical Summary | Summary of Care ---
Author Name Unknown Organization [facility] Address [address] [place] [address] Phone [phone] Care Team Providers Care Pillow Cleaner Name Role Phone Shonda Fields MD Primary Care Prov ider Reason for Visit * Reason Comments Outpatient Testing Encounter Details Date Type Department Care Team (Late st Contact Info) Description 08/23/2023 12:20 PM EST Laboratory Laboratory [address] [place] [phone] [place] [address] babberly Other*[id number]; Hypothyroidism due to acquired atrophy of thyroid; Adenocarcinoma of pancreas (HCC); Leg edema, left Allergies Active Allergy Reactions [...] as of this encounter (statuses as of 08/23/2023) Medications Medication Sig Dispensed Refills Start Date [...] coronary artery stent placement,Coronary artery disease of [place] artery of [place] heart with stable angina pectoris (HCC) Place [...] 24 Hour (Imdur)Indications: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) TAKE [...] BLOATING/GAS 100 Tablet 5 05/04/2023 Active Pancrelipase (Diy-Zmyw-Rofo) [id number] UNIT Oral Capsule Delayed Release Particles (Creon [...] as of this encounter (statuses as of 08/23/2023) Active Problems Problem Noted Date Diagnosed Date [...] artery 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[place] heart with stable angina pectoris 03/18/2020 Obesity, [...] 09/13/2011 Dyslipidemia, goal LDL below 70 09/13/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 0 09/13/2011 Overview: ICD-10 update of inactive term Personal history of malignant neoplasm of skin 0 10/19/2010 Overview: 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), R forehead BCC 01/2012, Ramon L forehead 01/2010 (Efudex) documented as of this encounter (statuses as of 08/23/2023) Resolved Problems Problem Noted Date Diagnosed Date [...] artery 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[place] heart with stable angina pectoris 11/04/2018 07/25/2022 Acute pain of right knee 11/30/2017 Hx of actinic keratosis 06/23/2015 0607/2017 Irritable bowel syndrome 11/16/201208/2017 Abdominal pain 11/16/2012 08/04/2017 IBS (irritable bowel syndrome) 09/13/2011 02/21/2019 Anticoagulation management encounter 09/13/2011 11/04/2018 Dermatochalasis 06/22/2011 01/31/2018 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 0 12/23/2012 documented as of this encounter (statuses as of 08/23/2023) Immunizations Name Administration Dates Next Due COVID-19 mRNA, LNP-s, No Pre serve, 2-Dose Series ([employer]) 05/31/2021,10/20/2020,09/22/2020 Covid-19, Mrna, Lnp-s, Pf, B ivalent, 30 Mcg, IM, 12 yrs and above ([employer]) 05/16/2022 Pneumococcal Conjugate Vacc, 13 Valent (Prevnar) [...] 11:00 AM EST Cardiac Studies Cardiac Studies [address] [place] [address] 08/29/2023 2:30 PM EST Office Visit Vascular Surgery, [facility] [address] [place] [address] Zakc Alcocer MD [address] [place] [address] 08/30/2023 10:00 AM EST Scheduled Telephone Ancillary [address] [place] [address] Philipp, Nurse Follow Up Phone Call Schedule [address] [place] [address] 10/05/2023 12:30 PM EDT Nurse Only Ancillary [address] [place] [address] [place], Nurse [address] [place] [address] 10/31/2023 10:20 AM EDT Office Visit Podiatry [facility] [address] [place] [address] Viky Hughes DPM [address] [place] [address] [place] [phone] 11/16/2023 11:30 AM EDT Office Visit Gastroenterology [address] [place] [address] Rina Nicole CRNP [address] [place] [address] 11/20/2023 11:20 AM EDT Office Visit Family Medicine [address] [place] [phone] Shonda Fields MD [address] [place] [address] [place] [address] 12/25/2023 1:30 PM EDT Office Visit Cardiology, [facility] [address] [place] [address] Dulce Boudreaux CRNP [address] [place] [address] 02/13/2024 9:30 AM EDT Cardiac Studies Cardiology, [facility] [address] [place] [address] [facility] [address] [place] [address] Pending Results Name Type Priority Associated Diagnoses Date /Time MYCODE SUBSEQUENT ADULT Lab Routine MyCode [employer] Other*[id number] 08/23/2023 12:14 PM EST TSH WITH FREE T4 IF INDICATED Lab Routine Hypothyroidism due to acquired atrophy of thyroid 08/23/2023 12:14 PM EST COMPREHENSIVE METABOLIC PANEL Lab Routine Adenocarcinoma of pancreas (HCC) 08/23/2023 12:14 PM EST CBC Lab Routine Adenocarcinoma of pancreas (HCC) Leg edema, left 08/23/2023 12:14 PM EST MYCODE SST1 Lab Routine [employer] Other*[id number] 08/23/2023 12:14 PM EST MYCODE SST2 Lab Routine [employer] Other*[id number] 08/23/2023 12:14 PM EST Health Maintenance Due Date Last Done Comments *BISPHONATE OR OTHER ACCEPTABLE MEDICATION NEEDED FOR OSTEOPOROSIS (REFER TO SMARTSET #1146) 11/25/2022 COVID-19 Vaccine ( season) 2023 05/16/2022, 05/31/2021, 10/20/2020, Additional history exists TSH 06/27/2023 06/27/2022, 08/02, 06/03/2021, Additional history exists GFR 09/11/2023 03/13/2023, 03/02, 03/11/2023, Additional history exists Depression Screening 10/03/2023 10/02/2022 CKD HGB USE SMARTSET 39760 03/13/202403/13, 03/12/2023, 03/11/2023, Additional history exists CKD PHOS USE SMARTSET 04978 03/13/202403/02, 03/12/2023, 03/11/2023, Additional history exists Albumin/Creatinine Ratio 05/14/2024 023, 06/27/2022, 09/02/2021, Additional history exists DTaP,Tdap,and Td Vaccines (2 - Td or Tdap) 07/06/2024 07/06/2014, 09/13/2011 DXA Scan 01/18/2025 01/18/2023, 05/0 11/2020, 07/28/2013 Pneumococcal Vaccine: 65+ Years Completed 05/16/2017, 04/04/2013 VITAMIN D LEVEL ONCE IN A LIFETIME-USE SMARTSET# [id number] Completed 10/09/2022, 03/10/2022, 09/02/2021, Additional history exists [...] as of this encounter Visit Diagnoses Diagnosis My[employer] Other*[id number] Hypothyroidism due to acquired atrophy of thyroid Adenocarcinoma of pancreas (HCC) Malignant neoplasm of pancreas, part unspecified Leg edema, left Edema documented in this encounter Advance Directives Documents on File Type Date Recorded 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 Leader 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 Advance Directives and Living Will 01/27/2023 Christiane Chong ADVANCE DIRECTIVE / LIVING WILL Power of Bench Chemist 01/27/2023 POWER OF A TTORNEY Latest Code [...] Care Agent (per Health Care Power of Bench Chemist document) [email or web address] Other - (no specific identity) First Alternate Health Care Agent (per Health Care Power of Bench Chemist document) [email or web address] Care Teams Pillow Cleaner Relationship Specialty Start Date End Date Shonda Fields MD [address] [place] [address] [place] [phone] PCP - General Family Medicine 02/21/19 documented as of this encounter
--- OUTSIDE RECORDS SUMMARY | 2023-10-25 20:42 | External Medical Summary | Summary of Care ---
Author Name Unknown Organization [facility] Address [address] [place] [address] Phone [phone] Care Team Providers Care Forgesmith Name Role Phone Shonda Fields MD Primary Care Prov ider Reason for Referral * Precert (Within 10 days (routine)) - Authorized Specialty Diagnoses / Procedures Referred By Contac t Referred To Contact Cardiac Studies Diagnoses Coronary artery disease of [place] artery of [place] heart with stable angina pectoris (HCC) Leg edema, left Procedures ECHO, COMPLETE (2D), TRANS-THORACIC Shonda Fields MD [address] [place] [address] [place] [address] Referral ID Status Reason Start Date Expiration Date V isits Requested Visits Authorized [id number] Authorized Precert 08/15/2023 999 999 Reason for Visit * Reason Comments Follow Up 3 mo f/u Encounter Details Date Type Department Care Team (Latest Contact Info) Description 08/15/2023 1:40 PM EST Office Visit Family Medicine [address] [phone] Shonda Fields MD [address] [place] [address] [place] [id number] Adenocarcinoma of pancreas (HCC)*; Paroxysmal atrial fibrillation (HCC); Coronary artery disease of [place] artery of [place] heart with stable angina pectoris (HCC); Old myocardial infarction; HTN, goal below 140/90; Dyslipidemia, goal LDL below 70; Chronic kidney disease, stage 3a (HCC); Hypothyroidism due to acquired atrophy of thyroid; Need for influenza vaccination; Adjustment disorder with anxious mood; Adverse reaction to statin medication; Leg edema, left Allergies Active Allergy Reactions [...] as of this encounter (statuses as of 08/15/2023) Medications Medication Sig Dispensed Refills Start Date End Date Status ASPIRIN EC 81 MG PO TBEC 1 TABLET DAILY 0 07/22/2014 Active acetaminophen (TYLENOL) 500 MG Tablet Take 2 Tablets by mouth every 8 hours as needed for Pain. 0 Active Diclofenac Sodium 1 % External Gel (Voltaren)Jesústio ns:Shoulder arthritis Apply topically to affected area daily. 100 g 1 03/14/2021 Active Vitamin D3 25 MCG Oral Tablet 5 Tablets. Pt taking every other day 0 06/16/2021 Active Nitroglycerin 0.4 MG Sublingual Tablet Sublingual (Nitrostat)Jesústi ons:S/P coronary artery stent placement,Coronary artery disease of [place] artery of [place] heart with stable angina pectoris (HCC) Place [...] 24 Hour (Imdur)Indications: Coronary artery disease of [place] artery of [place] heart with stable angina pectoris (HCC) TAKE [...] BLOATING/GAS 100 Tablet 5 05/04/2023 Active Pancrelipase (Hqq-Hhkf-Iydy) [id number] UNIT Oral Capsule Delayed Release Particles (Creon [...] the morning. 30 Tablet 5 08/15/2023 Active Sertraline HCl 100 MG Oral Tablet (Zoloft)Indications :Adjustment disorder with anxious mood Take 0.5 Tablets by mouth in the morning. 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), R forehead BCC 01/2012, Ramon L forehead 01/2010 (Efudex) documented as of this encounter (statuses as of 08/15/2023) Resolved Problems Problem Noted Date Diagnosed Date [...] artery 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[place] heart with stable angina pectoris 11/04/2018 07/25/2022 Acute pain of right knee 11/30/2017 Hx of actinic keratosis 06/23/2015 06/07/2017 Irritable bowel syndrome 11/16/201208/2017 Abdominal pain 11/16/2012 08/04/2017 IBS (irritable bowel syndrome) 09/13/2011 02/21/2019 Anticoagulation management encounter 09/13/2011 11/04/2018 Dermatochalasis 06/22/2011 01/31/2018 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 0 12/23/2012 documented as of this encounter (statuses as of 08/15/2023) Immunizations Name Administration Dates Next Due COVID-19 mRNA, LNP-s, No Pre serve, 2-Dose Series (doubleTwist) 05/31/2021,10/20/2020,09/22/2020 Covid-19, Mrna, Lnp-s, Pf, B ivalent, 30 Mcg, IM, 12 yrs and above (doubleTwist) 05/16/2022 Pneumococcal Conjugate Vacc, 13 Valent (Prevnar) [...] Never Smokeless Tobacco: Never Tobacco Cessation:Counseling Given: Not Answered Alcohol Use Standard Drinks/Week Comments No 0 [...] Sign Reading Time Taken Comments Blood Pressure 140/84 08/15/2023 1:35 PM EST Pulse 68 08/15/2023 1:35 PM EST Temperature 35.9 C (96.6 F) 08/15/2023 1:35 PM ES T Respiratory Rate - - Oxygen Saturation 98% 08/15/2023 1:35 PM EST Inhaled Oxygen Concentration - - Weight 78.9 kg (174 lb) 08/15/2023 1:35 PM EST Height - - Body Mass Index 27.25 04/06/2023 11:27 AM EDT documented in this [...] as of this encounter Progress Notes * Joshua Oseguera, Shonda Mascorro MD - 08/15/2023 2:02 PM EST Subjective Milena Lozoya is a 82 year old female. Chief Complaint Patient presents with Follow Up 3 mo f/u HPI: Here for follow up Pancreatic cancer. Underwent [facility] Mar 2023 Dr Leggett. Notes she is having thin frequent BMs. Some cramping as well. Wonders if related to Creon. Uses dicyclomine PRN cramps, does help. Wants to have a follow up CT scan to know for sure whether the cancer is gone. Hypothyroid. Due for labs. HTN. is in the hospital and she is worried about him, feels this is why her BP is up today.Denies headaches/ changes in chronic chest pain, SOB. Old LA/ Afib. Has chronic angina. Cardiology increased her metoprolol dose, but Milena does not feel it is helping. Leg edema. Left worse than right. For 3 weeks. Denies leg cramping, denies SOB. 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 Pancreatic cyst K86.2 Paroxysmal atrial fibrillation (HCC) I48.0 Old myocardial infarction I25.2 Adverse reaction to statin medication T46.6X5A Adrenal insufficiency (HCC) E27.40 Tremors of nervous system R25.1 Hyperparathyroidism, primary (HCC) E21.0 Obesity, Class I, BMI 30.0-34.9 (see actual BMI) E66.9 Adjustment disorder with anxious mood F43.22 Coronary artery disease of [place] artery of [place] heart with stable angina pectoris (HCC) I25.118 Hypertensive kidney disease with stage 3a chronic kidney disease I12.9, N18.31 Statin intolerance Z78.9 Esophageal spasm K22.4 High risk for fracture due to osteoporosis by DEXA scan M81.0 Chronic kidney disease, stage 3a (HCC) N18.31 Greater trochanteric bursitis of left hip M70.62 Senile osteoporosis M81.0 Trigger middle finger of left hand M65.332 Carotid stenosis, non-symptomatic, bilateral I65.23 Aortic ectasia, abdominal ([facility]) I77.811 Subclavian artery stenosis, right ([facility]) I77.1 Adenocarcinoma of pancreas ([facility]) C25.9 Post-op pain G89.18 Current Outpatient Medications Medication Sig Dispense Refill ASPIRIN EC 81 MG PO TBEC 1 TABLET DAILY acetaminophen (TYLENOL) 500 MG Tablet Take 2 Tablets by mouth every 8 hours as needed for Pain. Diclofenac Sodium 1 % External Gel (Voltaren) Apply topically to affected area daily. 100 g 1 Vitamin D3 25 MCG [...] week break between treatments. 28 g 0 Calcium 600-D 600-400 MG-UNIT Oral Tablet Take 1 Tablet by mouth in the morning. In the morning.. Cholestyramine 4 GM Oral Packet (Questran) Take 1 Packet by mouth every other day. Mixed with liquid. 90 Packet 1 amLODIPine Besylate 5 MG Oral Tablet (Norvasc) Take 1 Tablet by mouth in the morning. 30 Tablet 5 Ondansetron 4 MG Oral Tablet Disintegrating (Zofran) Place 1 Tablet on tongue every 8 hours as needed for Nausea. dissolve on tongue. 30 Tablet 5 Potassium Chloride Debi ER 20 MEQ Oral Tablet Extended Release Take 1 Tablet by mouth in the morning and 1 Tablet before bedtime. 60 Tablet 11 ALPRAZolam 0.25 MG Oral Tablet (xaNAX) TAKE ONE TABLET BY MOUTH THREE TIMES DAILY NEEDED FOR ANXIETY OR INSOMNIA 30 Tablet 0 Sennosides 8.6 MG Oral Tablet Take 1 Tablet by mouth daily as needed for Constipation. Magnesium Hydroxide 400 MG/5ML Oral Suspension Take [...] 1-2 TABLETS FOUR TIMES DAILY NEEDED FOR BLOATING/[id number] Tablet 5 Pancrelipase (Pbl-Itxb-Qnzc) 4065-7478 UNIT Oral Capsule Delayed Release Particles (Creon [...] taking: Reported on 06/05/2023) 1 Each 1 No current facility-administered medications for this visit. [...] NAUSEA AND VOMITING,ACHY Zetia [Ezetimibe] Muscle pain Objective BP 140/84 | Pulse 68 | Temp 35.9 C (96.6 F) (Tympanic) | Wt 78.9 kg (174 lb) | SpO2 98% | BMI 27.25 kg/m | BSA 1.93 m Physical Exam Constitutional: Appearance: Normal appearance. Cardiovascular: Rate and Rhythm: Normal rate and regular rhythm. Pulses: Normal pulses. Heart sounds: Normal heart sounds. Pulmonary: Effort: Pulmonary effort is normal. Breath sounds: Normal breath sounds. Musculoskeletal: Right lower leg: Edema present. Left lower leg: Edema present. Comments: Left > right leg edema Neurological: Mental Status: She is alert. ASSESSMENT/PLAN: Adenocarcinoma of pancreas (HCC) (Primary) - COMPREHENSIVE METABOLIC PANEL; Future; Expected date: 08/15/2023 - CBC; Future; Expected date: 08/15/2023 Paroxysmal atrial fibrillation (HCC) Coronary artery disease of [place] artery of [place] heart with stable angina pectoris (HCC) - ECHO, COMPLETE (2D), TRANS-THORACIC; Future; Expected date: 08/15/2023 Old myocardial infarction HTN, goal below 140/90 Dyslipidemia, goal LDL below 70 Chronic kidney disease, stage 3a (HCC) Hypothyroidism due to acquired atrophy of thyroid - TSH WITH FREE T4 IF INDICATED; Future; Expected date: 08/15/2023 Need for influenza vaccination - INFLUENZA VACC, QUAD, HIGH DOSE (FLUZONE HD) Adjustment disorder with anxious mood - Sertraline HCl 100 MG Oral Tablet (Zoloft); Take 1 Tablet by mouth in the morning. Adverse reaction to statin medication Leg edema, left - VASC DUPLEX VENOUS LE UNILAT - ECHO, COMPLETE (2D), TRANS-THORACIC; Future; Expected date: 08/15/2023 - CBC; Future; Expected date: 08/15/2023 Leg edema ddx dependant vs DVT vs CHF vs other. Recommend leg elevation and Duplex, Echo. Will follow up with results. Under a lot of stress with worrying about her own recent bout of pancreatic cancer, loss of her son, husbands chronic illness (dementia) and currently he is in the hospital. Recommend icnreasing zoloft and hse agrees. Follow Up: Return in about 3 months (around 11/13/2023) for Return with Physician, Clinic Visit. | For: Return with Physician, Clinic Visit | Check-out note: Schedule GI appt follow up Follow up in 3 months with [facility] Nursing phone call in 2 weeks for stress/ anxiety and any better with increased dose sertraline? 45 mins spent with patient > 50% counselling and coordinating care. Shonda Chakraborty MD documented in this encounter Nursing Notes * Janki Simmons LPN - 08/15/2023 1:33 PM EST Chief Complaint Patient presents with Follow Up 3 mo f/u Andrzej arm pain pain at HS when trying to sleep States takes tylenol The patient has been properly identified by confirmation of name and date of . documented in this encounter Plan of Treatment Upcoming Encounters Date Type Department Care Team (Late st Contact Info) Description 08/20/2023 12:45 PM EST Imaging Radiology [address] [place] [address] 08/28/2023 11:00 AM EST Cardiac Studies Cardiac Studies [address] [place] [address] 08/29/2023 2:30 PM EST Office Visit Vascular Surgery, [facility] [address] [facility] [place] [address] Zack Alcocer MD [address] [facility] [place] [address] 08/30/2023 10:00 AM EST Scheduled Telephone Ancillary [address] [place] [address] Philipp Nurse Follow Up Phone Call Schedule [address] [place] [address] 10/05/2023 10:00 AM EDT Nurse Only Ancillary [address] [place] [address] [place], Nurse [address] [place] [address] 10/31/2023 10:20 AM EDT Office Visit Podiatry [facility] [address] [facility] [place] [address] Viky Hughes, JENN [address] [place] [address] 11/16/2023 11:30 AM EDT Office Visit Gastroenterology [address] [place] [address] Rina Nicole CRNP [address] [place] [address] 12/25/2023 1:30 PM EDT Office Visit Cardiology, [facility] [address] [place] [address] Dulce Boudreaux CRNP [address] [facility] [place] [address] 02/13/2024 9:30 AM EDT Cardiac Studies Cardiology, [facility] [address] [facility] [place] [address] [facility] [address] [place] [address] Scheduled Orders Name Type Priority Associated Diagnoses Orde r Schedule TSH WITH FREE T4 IF INDICATED Lab Routine Hypothyroidism due to acquired atrophy of thyroid Expected: 08/15/2023 (Approximate), Expires: 08/15/2024 COMPREHENSIVE METABOLIC PANEL Lab Routine Adenocarcinoma of pancreas (HCC) Expected: 08/15/2023 (Approximate), Expires: 08/14/2024 VASC DUPLEX VENOUS LE UNILAT Medical Imaging Routine Leg edema, left Ordered: 08/15/2023 ECHO, COMPLETE (2D), TRANS-THORACIC Echocardiology Routine Coronary artery disease of [place] artery of [place] heart with stable angina pectoris (HCC) Leg edema, left Expected: 08/15/2023, Expires: 09/12/2025 CBC Lab Routine Adenocarcinoma of pancreas (HCC) Leg edema, left Expected: 08/15/2023 (Approximate), Expires: 08/14/2024 Health Maintenance Due Date Last Done Comments *BISPHONATE OR OTHER ACCEPTABLE MEDICATION NEEDED FOR OSTEOPOROSIS (REFER TO SMARTSET #1146) 11/25/2022 COVID-19 Vaccine ( season) 2023 05/16/2022, 05/31/2021, 10/20/2020, Additional history exists TSH 06/27/2023 06/27/2022, 08/02, 06/03/2021, Additional history exists GFR 09/11/2023 03/13/2023, 03/02, 03/11/2023, Additional history exists Depression Screening 10/03/2023 10/02/2022 CKD HGB USE SMARTSET 04718 03/13/202403/13, 03/12/2023, 03/11/2023, Additional history exists CKD PHOS USE SMARTSET 58056 03/13/202403/02, 03/12/2023, 03/11/2023, Additional history exists Albumin/Creatinine Ratio 05/14/2024 023, 06/27/2022, 09/02/2021, Additional history exists DTaP,Tdap,and Td Vaccines (2 - Td or Tdap) 07/06/2024 07/06/2014, 09/13/2011 DXA Scan 01/18/2025 01/18/2023, 05/0 11/2020, 07/28/2013 Pneumococcal Vaccine: 65+ Years Completed 05/16/2017, 04/04/2013 VITAMIN D LEVEL ONCE IN A LIFETIME-USE SMARTSET# [id number] Completed 10/09/2022, 03/10/2022, 09/02/2021, Additional history exists [...] as of this encounter Visit Diagnoses Diagnosis Adenocarcinoma of pancreas (HCC)- Primary Malignant neoplasm of pancreas, part unspecified Paroxysmal atrial fibrillation (HCC) Atrial fibrillation Coronary artery disease of [place] artery of [place] heart with stable angina pectoris (HCC) Old myocardial infarction HTN, goal below 140/90 Unspecified essential hypertension Dyslipidemia, goal LDL below 70 Other and unspecified hyperlipidemia Chronic kidney disease, stage 3a (HCC) Hypothyroidism due to acquired atrophy of thyroid Need for influenza vaccination Need for prophylactic vaccination and inoculation against influenza Adjustment disorder with anxious mood Adjustment disorder with anxiety Adverse reaction to statin medication Leg edema, left Edema documented in this encounter Advance Directives Documents on File Type Date Recorded Patient Feather Cutting Machine Feeder Expl anation Advance Directives and Living Will 01/27/2023 Christiane Chong ADVANCE DIRECTIVE / LIVING WILL Power of Wet Milling Wheel Operator 01/27/2023 POWER OF A TTORNEY Latest [...] Care Agent (per Health Care Power of Wet Milling Wheel Operator document) [email or web address] [email or web address] Chong Other - (no specific identity) First Alternate Health Care Agent (per Health Care Power of Wet Milling Wheel Operator document) [email or web address] Forgesmith Relationship Specialty Start Date End Date Shonda Fields MD [address] [place] [address] [place] [id number] PCP - General Family Medicine 02/21/19 documented as of this encounter
--- OUTSIDE RECORDS SUMMARY | 2023-10-25 20:42 | External Medical Summary ---
Author Name Unknown Address Unknown Organization K01:[facility] - [address] [place] [address] Laboratory Report Ordering Provider Test Date Status ST ALEXIASTEPHANIE 08/23/2023 12:14:36 Final Observation Date Value Abnormality Reference (Units ) Status MYCODE SPECIMEN-SST 08/23/2023 12:14:36 Freezing of extracted DNA, whole blood and/or serum. Final Performing Location [facility] - [address] [place] [address]
--- OUTSIDE RECORDS SUMMARY | 2023-10-25 20:42 | External Medical Summary ---
Author Name Unknown Address Unknown Organization K01:[facility] - [address] [facility] [address] Laboratory Report Ordering Provider Test Date Status NASIR LONGO 08/23/2023 12:14:36 Final Observation Date Value Abnormality Reference (Units ) Status BUN 08/23/2023 12:14:36 16 6-20 (mg/dL) Final Creatinine 08/23/2023 12:14:36 0.9 0.5-1.0 (mg/dL) Final Glomerular filtration rate/1.73 sq M.predicted [Volume Rate/Area] in Serum, Plasma or Blood by Creatinine-based formula (CKD-EPI) 08/23/2023 12:14:36 67 >=60 (mL/min) Final eGFR is calculated based on the CKD-EPI 2020 equation SODIUM 08/23/2023 12:14:36 140 135-146 (m mol/L) Final Potassium 08/23/2023 12:14:36 3.5 3.5-5.1 (m mol/L) Final Cl 08/23/2023 12:14:36 103 98-107 (mm ol/L) Final CO2 08/23/2023 12:14:36 27 22-32 (mmo l/L) Final Anion gap 08/23/2023 12:14:36 10 7-15 (mmol /L) Final Glucose 08/23/2023 12:14:36 147 Above high normal 70 -120 (mg/dL) Final Albumin 08/23/2023 12:14:36 3.9 3.8-5.0 (g /dL) Final AST (Aspartate aminotransferase) 08/23/2023 12:14:36 26 10-35 (U/L) Fin al Alk Phos 08/23/2023 12:14:36 133 Above high normal 35 -130 (U/L) Final Bilirubin, Total 08/23/2023 12:14:36 0.5 <=1 .2 (mg/dL) Final Calcium 08/23/2023 12:14:36 9.0 8.4-10.2 ( mg/dL) Final Protein 08/23/2023 12:14:36 6.0 6.0-8.3 (g /dL) Final ALT (Alanine aminotransferase) 08/23/2023 12:14:36 26 10-35 (U/L) Raymundo shen Performing Location [facility] - [address] [facility] [address]
--- OUTSIDE RECORDS SUMMARY | 2023-10-25 20:42 | External Medical Summary | Summary of Care ---
Author Name Unknown Organization [facility] Address [address] [place] [address] Phone [phone] Care Team Providers Care Special Events Coordinator Name Role Phone Shonda Fields MD Primary Care Prov ider Reason for Visit * Reason Onset Date Comments Home Health 04/11/2023 Encounter Details Date Type Department Care Team (Late st Contact Info) Description 04/11/[address] [phone] Shonda Fields MD [address] [place], [place] [address] [address] Home Health Allergies Active Allergy Reactions Criticality Noted Date [...] as of this encounter (statuses as of 07/11/2023) Medications Medication Sig Dispensed Refills Start Date [...] coronary artery stent placement,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), R forehead BCC 01/2012, Ramon L forehead 01/2010 (Efudex) documented as of this encounter (statuses as of 07/11/2023) Resolved Problems Problem Noted Date Diagnosed Date [...] 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 11/04/2018 07/25/2022 Acute pain of right knee 11/30/2017 Hx of actinic keratosis 06/23/2015 06/0 07/2017 Irritable bowel syndrome 11/16/201208/2017 Abdominal pain 11/16/2012 08/04/2017 IBS (irritable bowel syndrome) 09/13/2011 02/21/2019 Anticoagulation management encounter 09/13/2011 11/04/2018 Dermatochalasis 06/22/2011 01/31/2018 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 0 12/23/2012 documented as of this encounter (statuses as of 07/11/2023) Immunizations Name Administration Dates Next Due COVID-19 mRNA, LNP-s, No Pre serve, 2-Dose Series (Micromidas) 05/31/2021,10/20/2020,09/22/2020 Covid-19, Mrna, Lnp-s, Pf, B ivalent, [...] encounter Miscellaneous Notes * Telephone Encounter - Katya Vazquez LPN - 04/11/2023 2:03 PM EDT Discharge Janet, Calling from: [facility] Patient is/has been discharged from Home Health on 04/11/2023 All goals have been met and patient is safe at home. FYI to PCP BM's continue to be soft, light yellow in color since her surgery, intermittent nausea with eating. Pt concerned as Pancrease was removed but she is not prescribed any insulin. Is this something thatshe will be required to do since she does not have a pancrease? She has been intermittently getting a Headache on the right side of her head sometime goes away on it's own and sometimes she uses Tylenol to relieve the pain. Educated on a Low fiber diet to help with the loose stools. documented in this encounter Plan of Treatment Upcoming Encounters Date Type Department Care Team (Late st Contact Info) Description 07/25/2023 10:20 AM EST Office Visit Podiatry [address] [place] [address] Viky Hughes, DPM [address] [place] [address] 08/13/2023 9:30 AM EST Imaging Vascular Lab, [facility] [address] [place] [address] 08/13/2023 10:30 AM EST Imaging Vascular Lab, [facility] [address] [place] [address] 08/15/2023 1:40 PM EST Office Visit Family Medicine [address] [place] [phone] Shonda Fields MD [address] [place] [address] [place] [address] 08/29/2023 2:30 PM EST Office Visit Vascular Surgery, [address] [place] [address] Zack Alcocer MD [address] [place] [address] 10/05/2023 10:00 AM EDT Nurse Only Ancillary [address] [place] [address] [place], Nurse Annual [address] [place] [address] 12/25/2023 1:30 PM EDT Office Visit Cardiology, [address] [place] [address] Dulce Boudreaux CRNP 132 [facility] [place] [address] 02/13/2024 9:30 AM EDT Cardiac Studies Cardiology, [facility] [address] [place] [address] Movjovany, Pacer [facility] 132 [place] [address] Health Maintenance Due Date Last Done Comments [...] Screening 10/03/2023 10/02/2022 CKD HGB USE SMARTSET 90722 03/13/202403/13, 03/12/2023, 03/11/2023, Additional history exists CKD PHOS USE SMARTSET 70133 03/13/202403/02, 03/12/2023, 03/11/2023, Additional history exists Albumin/Creatinine Ratio 05/14/2024 023, 06/27/2022, 09/02/2021, Additional history exists DTaP,Tdap,and Td Vaccines (2 - Td or Tdap) 07/06/2024 07/06/2014, 09/13/2011 DXA Scan 01/18/2025 01/18/2023, 05/11/2020, 07/28/2013 Pneumococcal Vaccine: 65+ Years Completed 05/16/2017, 04/04/2013 VITAMIN D LEVEL ONCE IN A LIFETIME-USE SMARTSET# [id number] Completed 10/09/2022, 03/10/2022, 09/02/2021, Additional history exists [...] Date Last Indicated Resolved Time C. difficile Rule-Out 04/27/2023 04/27/20232022 11:15 PM EDT Gastrointestinal Rule-Out 04/27/2023 04/27/2023 9:45 AM EDT C. difficile 04/27/2023 04/27/2023 05/27/2023 12:1 9 AM EST documented as of this encounter Advance Directives Documents on File Type Date Recorded Patient Formula Technician Expl anation Advance Directives and Living Will 01/27/2023 Christiane Chong ADVANCE DIRECTIVE / LIVING WILL Power of Laboratory Associate 01/27/2023 POWER OF A TTORNEY Latest Code [...] Care Agent (per Health Care Power of Laboratory Associate document) Coral Chong Other - (no specific identity) First Alternate Health Care Agent (per Health Care Power of Laboratory Associate document) che Care Teams Special Events Coordinator Relationship Specialty Start Date End Date Shonda Fields MD [address] [place] [address] [place] [address] PCP - General Family Medicine 02/21/19 documented as of this encounter
--- OUTSIDE RECORDS SUMMARY | 2023-10-25 20:42 | External Medical Summary | Summary of Care ---
Author Name Unknown Organization [facility] Address [address] [place] [address] Phone [phone] Care Team Providers Care Mailing Machine Assistant Name Role Phone Shonda Fields MD Primary Care Prov ider Reason for Visit * Reason Onset Date Comments Test Results 08/16/2023 Encounter Details Date Type Department Care Team (Late st Contact Info) Description 08/16/[address] [phone] Shonda Fields MD [address] [place], [place] [address] [address] Test Results Allergies Active Allergy Reactions Criticality [...] as of this encounter (statuses as of 08/16/2023) Medications Medication Sig Dispensed Refills Start Date [...] coronary artery stent placement,Coronary artery disease of [place] artery of [place] heart with stable angina pectoris (HCC) Place [...] 24 Hour (Imdur)Indications: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) TAKE [...] BLOATING/GAS 100 Tablet 5 05/04/2023 Active Pancrelipase (Kci-Kgjt-Qgxs) 4352-3407 UNIT Oral Capsule Delayed Release Particles (Creon [...] as of this encounter (statuses as of 08/16/2023) Active Problems Problem Noted Date Diagnosed Date [...] artery 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[place] heart with stable angina pectoris 03/18/2020 Obesity, [...] 09/13/2011 Dyslipidemia, goal LDL below 70 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 09/13/2011 Overview: ICD-10 update of inactive term Personal history of malignant neoplasm of skin 0 10/19/2010 Overview: 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), R forehead BCC 01/2012, Ramon L forehead 01/2010 (Efudex) documented as of this encounter (statuses as of 08/16/2023) Resolved Problems Problem Noted Date Diagnosed Date [...] artery 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[place] heart with stable angina pectoris 11/04/2018 07/25/2022 Acute pain of right knee 11/30/2017 Hx of actinic keratosis 06/23/201507/2017 Irritable bowel syndrome 11/16/201208/2017 Abdominal pain 11/16/2012 08/04/2017 IBS (irritable bowel syndrome) 09/13/2011 02/21/2019 Anticoagulation management encounter 09/13/2011 11/04/2018 Dermatochalasis 06/22/2011 01/31/2018 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 0 12/23/2012 documented as of this encounter (statuses as of 08/16/2023) Immunizations Name Administration Dates Next Due COVID-19 mRNA, LNP-s, No Pre serve, 2-Dose Series ([employer]) 05/31/2021,10/20/2020,09/22/2020 Covid-19, Mrna, Lnp-s, Pf, B ivalent, 30 Mcg, IM, 12 yrs and above ([employer]oshiGames) 05/16/2022 Pneumococcal Conjugate Vacc, 13 Valent (Prevnar) [...] encounter Miscellaneous Notes * Telephone Encounter - Janki Simmons LPN [...] Description 08/20/2023 12:45 PM EST Imaging Radiology [address] [place] [address] 08/28/2023 11:00 AM EST Cardiac Studies Cardiac Studies [address] [place] [address] 08/29/2023 2:30 PM EST Office Visit Vascular Surgery, [facility] [address] [place] [address] Zack Alcocer MD [address] [facility] [place] [address] 08/30/2023 10:00 AM EST Scheduled Telephone Ancillary [address] [place] [address] [place], Nurse Follow Up Phone Call Schedule [address] [place] [address] 10/05/2023 10:00 AM EDT Nurse Only Ancillary [address] [place] [address] Nurse Edel [address] [place] [address] 10/31/2023 10:20 AM EDT Office Visit Podiatry [facility] [address] [place] [address] Viky Hughes, DPM [address] [place] [address] [place] [address] 11/16/2023 11:30 AM EDT Office Visit Gastroenterology [address] [place] [address] Rina Nicole CRNP [address] [place] [address] 11/20/2023 11:20 AM EDT Office Visit Family Medicine [address] [place] [phone] Shonda Fields MD [address] [place] [address] [place] [address] 12/25/2023 1:30 PM EDT Office Visit Cardiology, [facility] [address] [place] [address] Dulce Boudreaux CRNP [address] [place] [address] 02/13/2024 9:30 AM EDT Cardiac Studies Cardiology, [facility] [address] [place] [address] [facility] [address] [place] [address] Health Maintenance Due Date Last Done Comments *BISPHONATE OR OTHER ACCEPTABLE MEDICATION NEEDED FOR OSTEOPOROSIS (REFER TO SMARTSET #1146) 11/25/2022 COVID-19 Vaccine ( season) 2023 05/16/2022, 05/31/2021, 10/20/2020, Additional history exists TSH 06/27/2023 06/27/2022, 08/02, 06/03/2021, Additional history exists GFR 09/11/2023 03/13/2023, 03/02, 03/11/2023, Additional history exists Depression Screening 10/03/2023 10/02/2022 CKD HGB USE SMARTSET 60114 03/13/202403/13, 03/12/2023, 03/11/2023, Additional history exists CKD PHOS USE SMARTSET 94170 03/13/202403/02, 03/12/2023, 03/11/2023, Additional history exists Albumin/Creatinine Ratio 05/14/2024 023, 06/27/2022, 09/02/2021, Additional history exists DTaP,Tdap,and Td Vaccines (2 - Td or Tdap) 07/06/2024 07/06/2014, 09/13/2011 DXA Scan 01/18/2025 01/18/2023, 0511/2020, 07/28/2013 Pneumococcal Vaccine: 65+ Years Completed 05/16/2017, 04/04/2013 VITAMIN D LEVEL ONCE IN A LIFETIME-USE SMARTSET# 15825 Completed 10/09/2022, 03/10/2022, 09/02/2021, Additional history exists [...] Documents on File Type Date Recorded Patient Advertising Director Expl anation Advance Directives and Living Will 01/27/2023 Christiane Chong ADVANCE DIRECTIVE / LIVING WILL Power of Medical Sales Specialist 01/27/2023 POWER OF A TTORNEY Latest Code [...] Care Agent (per Health Care Power of Medical Sales Specialist document) [email or web address] Coral Chong Other - (no specific identity) First Alternate Health Care Agent (per Health Care Power of Medical Sales Specialist document) [email or web address] Care Teams Mailing Machine Assistant Relationship Specialty Start Date End Date Shonda Fields MD [address] [place] [address] [place] [phone] PCP - General Family Medicine 02/21/19 documented as of this encounter
--- OUTSIDE RECORDS SUMMARY | 2023-10-25 20:42 | External Medical Summary | Summary of Care ---
Author Name Unknown Organization [facility] Address [address] [place] [address] Phone [phone] Care Team Providers Care Sanding Machine Operator Name Role Phone Shonda Fields MD Primary Care Prov ider Encounter Details Date Type Department Care Team (Late st Contact Info) Description 08/12/2023 Result Scan Unspecified Department Roberta Redd, DO [address] [place], [place] [phone] <No scans attached> Allergies Active Allergy Reactions Criticality Noted Date [...] as of this encounter (statuses as of 08/12/2023) Medications Medication Sig Dispensed Refills Start Date [...] coronary artery stent placement,Coronary artery disease of [place] artery of [place] heart with stable angina pectoris (HCC) Place [...] 24 Hour (Imdur)Indications: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), R forehead BCC 01/2012, Ramon L forehead 01/2010 (Efudex) documented as of this encounter (statuses as of 08/12/2023) Resolved Problems Problem Noted Date Diagnosed Date [...] artery 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[place] heart with stable angina pectoris 11/04/2018 07/25/2022 Acute pain of right knee 11/30/2017 Hx of actinic keratosis 06/23/2015 06/07/2017 Irritable bowel syndrome 11/16/201208/2017 Abdominal pain 11/16/2012 08/04/2017 IBS (irritable bowel syndrome) 09/13/2011 02/21/2019 Anticoagulation management encounter 09/13/2011 11/04/2018 Dermatochalasis 06/22/2011 01/31/2018 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 0 12/23/2012 documented as of this encounter (statuses as of 08/12/2023) Immunizations Name Administration Dates Next Due COVID-19 mRNA, LNP-s, No Pre serve, 2-Dose Series ([employer]ell) 05/31/2021,10/20/2020,09/22/2020 Covid-19, Mrna, Lnp-s, Pf, B ivalent, [...] 08/13/2023 9:30 AM EST Imaging Vascular Lab, [facility] 2nd [facility], [address] [place] [address] 08/13/2023 10:30 AM EST Imaging Vascular Lab, [facility], [address] [place] [address] 08/15/2023 1:40 PM EST Office Visit Family Medicine [address] [place] [phone] Shonda Fields MD [address] [place] [address] [place] [address] 08/29/2023 2:30 PM EST Office Visit Vascular Surgery, [address] [place] [address] Zack Alcocer MD [address] [place] [address] 10/05/2023 10:00 AM EDT Nurse Only Ancillary [address] [place] [address] [place], Nurse Annual [address] [place] [address] 10/31/2023 10:20 AM EDT Office Visit Podiatry [address] [place] [address] Viky Hughes DPM [address] [place] [address] [place] [address] 12/25/2023 1:30 PM EDT Office Visit Cardiology, [address] [place] [address] Dulce Boudreaux CRNP [address] [place] [address] 02/13/2024 9:30 AM EDT Cardiac Studies Cardiology, [facility] [address] [place] [address] [place], Pacer Clinic [facility] [address] [place] [address] Health Maintenance Due Date Last Done Comments [...] Screening 10/03/2023 10/02/2022 CKD HGB USE SMARTSET 76463 03/13/202403/13, 03/12/2023, 03/11/2023, Additional history exists CKD PHOS USE SMARTSET 70938 03/13/202403/02, 03/12/2023, 03/11/2023, Additional history exists Albumin/Creatinine Ratio 05/14/2024 023, 06/27/2022, 09/02/2021, Additional history exists DTaP,Tdap,and Td Vaccines (2 - Td or Tdap) 07/06/2024 07/06/2014, 09/13/2011 DXA Scan 01/18/2025 01/18/2023, 05/11/2020, 07/28/2013 Pneumococcal Vaccine: 65+ Years Completed 05/16/2017, 04/04/2013 VITAMIN D LEVEL ONCE IN A LIFETIME-USE SMARTSET# 33778 Completed 10/09/2022, 03/10/2022, 09/02/2021, Additional history exists [...] Procedure Name Priority Date/Time Associated Diagnosis Comments CARDIOLOGY SCANNED RESULT 08/12/2023 documented in this encounter Results * CARDIOLOGY SCANNED RESULT (08/12/2023) 08/12/2023 Roberta Redd DO OTHER documented in this encounter Advance Directives Documents on File Type Date Recorded Patient Glove Maker Expl anation Advance Directives and Living Will 01/27/2023 Christiane Chong ADVANCE DIRECTIVE / LIVING WILL Power of Coal Pulverizing Operator 01/27/2023 POWER OF A TTORNEY Latest [...] Care Agent (per Health Care Power of Coal Pulverizing Operator document) [email or web address] Coral Chong Other - (no specific identity) First Alternate Health Care Agent (per Health Care Power of Coal Pulverizing Operator document) che Care Teams Sanding Machine Operator Relationship Specialty Start Date End Date Shonda Fields MD [address] [place] [address] [place] [address] PCP - General Family Medicine 02/21/19 documented as of this encounter
--- OUTSIDE RECORDS SUMMARY | 2023-10-25 20:42 | External Medical Summary | Summary of Care ---
Author Name Unknown Organization [facility] Address [address] [place] [address] Phone [phone] Care Team Providers Care Trout Farmer Name Role Phone Shonda Fields MD Primary Care Prov ider Reason for Visit * Reason Onset Date Comments Referral Requested by Specialist 07/09/2023 Encounter Details Date Type Department Care Team (Late st Contact Info) Description 07/09/2023 Telephone Podiatry [facility] 132 [facility] [place] [address] Viky Hughes, DPMeghan [address] [facility] [place] [phone] Referral Requested by Specialist Allergies Active Allergy [...] as of this encounter (statuses as of 07/09/2023) Medications Medication Sig Dispensed Refills Start Date [...] coronary artery stent placement,Coronary artery disease of [place] artery of [place] heart with stable angina pectoris (HCC) Place [...] 24 Hour (Imdur)Indications: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 0 05/04/2023 Active Pancrelipase (Phh-Nbka-Agwr) 7816-6596 UNIT Oral Capsule Delayed Release Particles (Creon [...] as of this encounter (statuses as of 07/09/2023) Active Problems Problem Noted Date Diagnosed Date [...] artery 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[place] heart with stable angina pectoris 03/18/2020 Obesity, [...] as of this encounter (statuses as of 07/09/2023) Resolved Problems Problem Noted Date Diagnosed Date [...] artery 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[place] heart with stable angina pectoris 11/04/2018 07/25/2022 Acute pain of right knee 11/30/2017 Hx of actinic keratosis 06/23/201507/2017 Irritable bowel syndrome 11/16/201208/2017 Abdominal pain 11/16/2012 08/04/2017 IBS (irritable bowel syndrome) 09/13/2011 02/21/2019 Anticoagulation management encounter 09/13/2011 11/04/2018 Dermatochalasis 06/22/2011 01/31/2018 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 0 12/23/2012 documented as of this encounter (statuses as of 07/09/2023) Immunizations Name Administration Dates Next Due COVID-19 mRNA, LNP-s, No Pre serve, 2-Dose Series ([employer]lun) 05/31/2021,10/20/2020,09/22/2020 Covid-19, Mrna, Lnp-s, Pf, B ivalent, 30 Mcg, IM, 12 yrs and above (Kunlun) 05/16/2022 Pneumococcal Conjugate Vacc, 13 Valent (Prevnar) [...] encounter Miscellaneous Notes * Telephone Encounter - Alexandra Siu OSA - 07/09/2023 12:10 PM EST [facility] 132 [facility] [place] [address] 07/09/[address] Chakraborty: This request is [...] to choose from a covered diagnosis code: [email or web address]/[email or web address]/article.[email or web address] Please return your completed referral along with patient's most recent office note to our office at: [phone]. Sincerely, [facility] documented in this encounter Plan of Treatment Upcoming Encounters Date Type Department Care Team (Late st Contact Info) Description 07/25/2023 10:20 AM EST Office Visit Podiatry [address] [place] [address] Viky Hughes, DPM 400 [facility] [place] [address] 08/13/2023 9:30 AM EST Imaging Vascular Lab, [facility], [address] [place] [address] 08/13/2023 10:30 AM EST Imaging Vascular Lab, [facility] [address] [place] [address] 08/15/2023 1:40 PM EST Office Visit Family Medicine [address] [place] [phone] Shonda Fields MD [address] [place] [address] [place] [address] 08/29/2023 2:30 PM EST Office Visit Vascular Surgery, [address] [place] [address] Zack Alcocer MD [address] [place] [address] 10/05/2023 10:00 AM EDT Nurse Only Ancillary [address] [place] [address] [place], Nurse Annual [address] [place] [address] 12/25/2023 1:30 PM EDT Office Visit Cardiology, [address] [place] [address] Dulce Boudreaux CRNP 132 [facility] [place] [address] 02/13/2024 9:30 AM EDT Cardiac Studies Cardiology, [facility] [address] [place] [address] [place], Pacer [facility] [address] [place] [address] Health Maintenance Due Date Last Done Comments [...] Screening 10/03/2023 10/02/2022 CKD HGB USE SMARTSET 28186 03/13/202403/13, 03/12/2023, 03/11/2023, Additional history exists CKD PHOS USE SMARTSET 09748 03/13/202403/02, 03/12/2023, 03/11/2023, Additional history exists Albumin/Creatinine Ratio 05/14/2024 023, 06/27/2022, 09/02/2021, Additional history exists DTaP,Tdap,and Td Vaccines (2 - Td or Tdap) 07/06/2024 07/06/2014, 09/13/2011 DXA Scan 01/18/2025 01/18/2023, 05/0 11/2020, 07/28/2013 Pneumococcal Vaccine: 65+ Years Completed 05/16/2017, 04/04/2013 VITAMIN D LEVEL ONCE IN A LIFETIME-USE SMARTSET# 10082 Completed 10/09/2022, 03/10/2022, 09/02/2021, Additional history exists [...] Documents on File Type Date Recorded Patient Oxyacetylene Torch Operator Expl anation Advance Directives and Living Will 01/27/2023 Christiane Chong ADVANCE DIRECTIVE / LIVING WILL Power of Rigging Helper 01/27/2023 POWER OF A TTORNEY Latest Code [...] Care Agent (per Health Care Power of Rigging Helper document) [email or web address] Coral Chong Other - (no specific identity) First Alternate Health Care Agent (per Health Care Power of Rigging Helper document) [email or web address] Care Teams Trout Farmer Relationship Specialty Start Date End Date Shonda Fields MD [address] [place] [address] [place] [address] PCP - General Family Medicine 02/21/19 documented as of this encounter
--- OUTSIDE RECORDS SUMMARY | 2023-10-25 20:42 | External Medical Summary ---
Author Name Unknown Address Unknown Organization K01:LABORATORY [facility] [place] - [facility] [address] [facility] [address] Laboratory Report Ordering Provider Test Date Status NASIR LONGO 08/23/2023 12:14:36 Final Observation Date Value Abnormality Reference (Units ) Status WBC, Total 08/23/2023 12:14:36 5.48 4.00-10.80 (K/uL) Final RBC 08/23/2023 12:14:36 4.35 3.85-5.15 (M/uL) Final Hemoglobin 08/23/2023 12:14:36 12.6 12.0-15.3 (g/dL) Final HCT 08/23/2023 12:14:36 39.3 36.0-45.2 (%) Final MCV 08/23/2023 12:14:36 90.3 81.5-97.5 (fL) Final MCH 08/23/2023 12:14:36 29.0 27.0-34.0 (pg) Final MCHC 08/23/2023 12:14:36 32.1 32.0-36.0 (g/dL) Final RDW 08/23/2023 12:14:36 13.5 11.5-15.5 (%) Final Platelets 08/23/2023 12:14:36 203 140-400 (K/uL) Final MPV 08/23/2023 12:14:36 12.1 6.6-11.1 (fL) Final Nucleated erythrocytes/100 leukocytes [Ratio] in Blood by Automated count 08/23/2023 12:14:36 0 <=0 (/100 WBCs) Final Performing Location LABORATORY [facility] - [address] [facility] [address]
--- OUTSIDE RECORDS SUMMARY | 2023-10-25 20:42 | External Medical Summary ---
Author Name Unknown Address Unknown Organization K01:LABORATORY [facility] [place] - [address] [place]IGGINS [address] Laboratory Report Ordering Provider Test Date Status ST ALEXIASTEPHANIE 08/23/2023 12:14:36 Final Observation Date Value Abnormality Reference (Units ) Status MYCODE SPECIMEN-SST 08/23/2023 12:14:36 Freezing of extracted DNA, whole blood and/or serum. Final Performing Location LABORATORY [facility] [place] - [address] [place] [address]
--- OUTSIDE RECORDS SUMMARY | 2023-10-25 20:42 | External Medical Summary | Summary of Care ---
Author Name Unknown Organization [facility] Address [address] [place] [address] Phone [phone] Care Team Providers Care Driver'S License Examiner Name Role Phone Shonda Fields MD Primary Care Prov ider Encounter Details Date Type Department Care Team (Late st Contact Info) Description 08/16/2023 Orders Only PATIENT PORTAL DO NOT DELETE THIS DEPT USED BY RONALDO ANGLIN [id number] Allergies Active Allergy Reactions Criticality Noted Date [...] artery stent placement,Coronary artery disease of [place] artery of [place] heart with stable angina pectoris (HCC) Place [...] Hour (Imdur)Indications: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) TAKE [...] BLOATING/GAS 100 Tablet 5 05/04/2023 Active Pancrelipase (Atq-Utoy-Afzz) 7732-6016 UNIT Oral Capsule Delayed Release Particles (Creon [...] 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 03/18/2020 Obesity, [...] 09/13/2011 Dyslipidemia, goal LDL below 70 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 [...] 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 11/04/2018 07/25/2022 [...] mRNA, LNP-s, No Pre serve, 2-Dose Series ([employer]) 05/31/2021,10/20/2020,09/22/2020 Covid-19, Mrna, Lnp-s, Pf, B ivalent, 30 Mcg, IM, 12 yrs and above ([employer]) 05/16/2022 Pneumococcal Conjugate Vacc, 13 Valent (Prevnar) [...] Description 08/20/2023 12:45 PM EST Imaging Radiology [address] [place] [address] 08/28/2023 11:00 AM EST Cardiac Studies Cardiac Studies [address] [place] [address] 08/29/2023 2:30 PM EST Office Visit Vascular Surgery, [facility] 132 [facility] [place] [address] Zack Alcocer MD [facility] [address] 08/30/2023 10:00 AM EST Scheduled Telephone Ancillary [address] [place] [address] [place], Nurse Follow Up Phone Call Schedule [address] [place] [address] 10/05/2023 10:00 AM EDT Nurse Only Ancillary [address] [place] [address] [place], Nurse [address] [place] [address] 10/31/2023 10:20 AM EDT Office Visit Podiatry [facility] [address] [place] [address] Viky Hughes DPM 400 [facility] [place] [address] 11/16/2023 11:30 AM EDT Office Visit Gastroenterology [address] [place] [address] Rina Nicole CRNP [address] [place] [address] 11/20/2023 11:20 AM EDT Office Visit Family Medicine [address] [place] [phone] Shonda Fields MD [address] [place] [address] [place] [address] 12/25/2023 1:30 PM EDT Office Visit Cardiology, [facility] [address] [place] [address] Dulce Boudreaux CRNP [address] [place] [address] 02/13/2024 9:30 AM EDT Cardiac Studies Cardiology, [facility] [address] [place] [address] [facility] [address] [place] [address] Health Maintenance Due Date Last Done Comments *BISPHONATE OR OTHER ACCEPTABLE MEDICATION NEEDED FOR OSTEOPOROSIS (REFER TO SMARTSET #1146) 11/25/2022 COVID-19 Vaccine ( season) 2023 05/16/2022, 05/31/2021, 10/20/2020, Additional history exists TSH 06/27/2023 06/27/2022, 08/02, 06/03/2021, Additional history exists GFR 09/11/2023 03/13/2023, 03/02, 03/11/2023, Additional history exists Depression Screening 10/03/2023 10/02/2022 CKD HGB USE SMARTSET 85989 03/13/202403/13, 03/12/2023, 03/11/2023, Additional history exists CKD PHOS USE SMARTSET 31260 03/13/202403/02, 03/12/2023, 03/11/2023, Additional history exists Albumin/Creatinine Ratio 05/14/2024 023, 06/27/2022, 09/02/2021, Additional history exists DTaP,Tdap,and Td Vaccines (2 - Td or Tdap) 07/06/2024 07/06/2014, 09/13/2011 DXA Scan 01/18/2025 01/18/2023, 05/0 11/2020, 07/28/2013 Pneumococcal Vaccine: 65+ Years Completed 05/16/2017, 04/04/2013 VITAMIN D LEVEL ONCE IN A LIFETIME-USE SMARTSET# 26167 Completed 10/09/2022, 03/10/2022, 09/02/2021, Additional history exists [...] Documents on File Type Date Recorded Patient Fibreglass Gun Hand Expl anation Advance Directives and Living Will 01/27/2023 Christiane Chong ADVANCE DIRECTIVE / LIVING WILL Power of Brass Buffer 01/27/2023 POWER OF A TTORNEY Latest Code [...] Care Agent (per Health Care Power of Brass Buffer document) [email or web address] - (no specific identity) First Alternate Health Care Agent (per Health Care Power of Brass Buffer document) [email or web address] Care Teams Driver'S License Examiner Relationship Specialty Start Date End Date Shonda Fields MD [address] [place] [address] [place] [phone] PCP - General Family Medicine 02/21/19 documented as of this encounter
--- OUTSIDE RECORDS SUMMARY | 2023-10-25 20:43 | External Medical Summary ---
Author Name Unknown Address Unknown Organization : Laboratory Report Ordering Provider Test Date Status SENIA GONZALES 05/14/2023 12:27:29 Final Observation Date Value Abnormality Reference (Units ) Status Fat.microscopic observation [Identifier] in Stool by [facility] IV stain 05/14/2023 12:27:29 Normal Normal Final
Test Performed at:
[facility]
[address] [facility]
[place] [address]
Preston Brumfield M.D., Ph.D.,Director of Laboratories Performing Location
--- OUTSIDE RECORDS SUMMARY | 2023-10-25 20:43 | External Medical Summary | Summary of Care ---
Author Name Unknown Organization [facility] Address [address] [place] [address] Phone [phone] Care Team Providers Care Rail Layer Name Role Phone Shonda Fields MD Primary Care Prov ider Reason for Visit * Reason Onset Date Comments case management 04/20/2023 Medication Refill 04/20/2023 Appointment 04/20/2023 Encounter Details Date Type Department Care Team (Latest Contact Info) Description 04/20/2023 Master Hearth Technician Telephone Family Medicine [address] [phone] Berna Kelly, RN [address] [place], [place] [phone] case management; Medication Refill; Appoin... 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 0 01/24/2023 Active Omeprazole 40 MG Oral Capsule Delayed Release (PriLOSEC) Take 1 Capsule by mouth in the morning. Do not start before March 14, 2023. 30 Capsule 2 03/14/2023 3 Active Magnesium Hydroxide 400 MG/5ML Oral Suspension Take by mouth 2 times a day as needed for Constipation. 0 03/13/2023 Active Isosorbide Mononitrate ER 60 MG Oral Tablet Extended Release 24 Hour (Imdur)Indications: Coronary artery disease of [place] artery of [place] heart with stable angina pectoris (HCC) TAKE [...] before bedtime. 180 Tablet 3 04/20/2023 Active Metoprolol Succinate ER 50 MG Oral Tablet Extended Release 24 Hour (toPROL XL) Take 1 Tablet by mouth in the morning and 1 Tablet before bedtime. 180 Tablet 3 04/20/2023 Active Simethicone 80 MG Oral Tablet ChewableIndications :Esophageal spasm CHEW 1-2 TABLETS FOUR TIMES DAILY NEEDED FOR BLOATING/GAS 100 Tablet 5 09/14/2022 3 Discontinue d(Refill) Levothyroxine Sodium 50 MCG Oral Tablet (Levoxyl)Indication s:Acquired hypothyroidism Take by mouth 1 Tablet in the morning. (at least 30 min prior to breakfast or other meds). 90 Tablet 1 09/19/2022 3 Discontinue d(Refill) Metoprolol Succinate ER 50 MG Oral Tablet Extended Release 24 Hour (toPROL XL) Take 1 Tablet by mouth in the morning and 1 Tablet before bedtime. 30 Tablet 0 02/14/2023 3 Discontinue d(Refill) Apixaban 5 MG Oral Tablet (Eliquis) Take 1 Tablet by mouth in the morning and 1 Tablet before bedtime. 60 Tablet 5 02/19/2023 3 Discontinue d(Refill) Sertraline HCl 100 MG Oral Tablet (Zoloft)Indications :Adjustment disorder with anxious mood Take 1 Tablet by mouth in the morning. 90 Tablet 1 02/21/2023 3 Discontinue d(Refill) documented as of this encounter (statuses as of 05/17/2023) Active Problems Problem Noted Date Diagnosed Date [...] artery 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[place] heart with stable angina pectoris 03/18/2020 Obesity, [...] as of this encounter (statuses as of 05/17/2023) Resolved Problems Problem Noted Date Diagnosed Date [...] artery 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[place] heart with stable angina pectoris 11/04/2018 07/25/2022 Acute pain of right knee 11/30/2017 Hx of actinic keratosis 06/23/2015 06/0 07/2017 Irritable bowel syndrome 11/16/201208/2017 Abdominal pain 11/16/2012 08/04/2017 IBS (irritable bowel syndrome) 09/13/2011 02/21/2019 Anticoagulation management encounter 09/13/2011 11/04/2018 Dermatochalasis 06/22/2011 01/31/2018 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 Authorizing Provider: SHONDA FIELDS Metoprolol Succinate ER 50 MG Oral Tablet *180 Ta*3 Sig: Take 1 Tablet by mouth in the morning and 1 Tablet before bedtime. Authorizing Provider: SHONDA JAY * Telephone Encounter - Berna Kelly RN - 04/20/2023 4:44 PM EDT To Cardiology: Patient reports she doesn't see cardiology until July - and then it is with the [facility]. Reports she hasn't seen the doctor for awhile. Reports she is starting to have some angina again. Described as chest tightness, radiates down botharms. Using NTG to manage - as she did in past. "It's coming back again." Will only take the NTG when at home, when she can go lie down. If occurs when not at home, she won't take it. Patient would like sooner appointment with cardiology if able. Please call patient at [phone]. Thank you. * Telephone Encounter - Shonda Fields MD - 04/20/2023 4:36 PM EDT Signed Prescriptions: Disp Refills Apixaban 5 MG Oral Tablet (Eliquis) 180 Ta*3 Sig: Take 1 Tablet by mouth in the morning and 1 Tablet before bedtime. Authorizing Provider: SHONDA FIELDS Metoprolol Succinate ER 50 MG Oral Tablet *180 Ta*3 Sig: Take 1 Tablet by mouth in the morning and 1 Tablet before bedtime. Authorizing Provider: SHONDA JAY * Telephone Encounter - Berna Kelly RN - 04/20/2023 4:23 PM EDT Scheduling: Patient would like the following appointments: -appointment with Dr Magdaleno Wiley in follow up -appointment with PCP, Dr Shonda Chakraborty -sooner appointment if able with cardiology due to increase in symptoms Please call patient at [phone] to schedule. Thank you. * Telephone Encounter - Berna Kelly RN - 04/20/2023 4:19 PM EDT Did you pend patient's preferred pharmacy and medication before forwarding?yes Pharmacy: [facility] Pending Prescriptions: Disp Refills Apixaban 5 MG Oral Tablet (Eliquis) 180 Ta*3 Sig: Take 1 Tablet by mouth in the morning and 1 Tablet before bedtime. Metoprolol Succinate ER 50 MG Oral Tablet*180 Ta*3 Sig: Take 1 Tablet by mouth in the morning and 1 Tablet before bedtime. Last Visit: 03/21/2023 (in office), Visit date not found (telemedicine) Next Visit: Visit date not found If no future appointments scheduled, and last appointment is greater than a year ago, please schedule patient for a follow-up appointment Last date the medication was ordered: 02/14/23 and 02/19/23 Is this request for a controlled substance?No Urine Drug Screen:No results found. However, due to the size of the patient record, not all encounters were searched. Please check Results Review for a complete set of results. Patient Phone Numbers Labs: Lab Results Component Value Date/Time CREAT 0.8 03/13/2023 08:19 AM CREAT 1.10 (A) 04/27/2021 12:00 AM CREAT 1.1 (H) 04/26/2020 09:21 AM POTASSIUM 3.4 (L) 03/13/2023 08:19 AM POTASSIUM 4.0 04/27/2021 12:00 AM POTASSIUM 4.3 04/26/2020 09:21 AM TSH 5.16 (H) 06/27/2022 11:25 AM TSH 3.95 04/26/2020 09:21 AM LDLCALC 298 (H) 03/10/2022 10:38 AM LDLCALC 285 (A) 06/19/2020 12:00 AM LDLCALC UNINTERPRETABLE RESULT 02/21/2019 01:57 PM LDLDIRECT 240 (H) 10/09/2022 12:24 PM LDLDIRECT 185 (H) 08/29/2019 10:49 AM LDLDIRECT 148 (H) 05/22/2014 11:36 AM ALT 18 12/20/2022 10:43 AM ALT 19 04/26/2020 09:21 AM HGBA1C 6.4 (H) 03/09/2023 08:10 AM HGBA1C 5.6 08/08/2019 01:44 PM * Telephone Encounter - Berna Kelly RN - 04/20/2023 4:18 PM EDT MARYCRUZ week #5. Called and spoke with patient. Alert, oriented, pleasant. Patient was just getting up from sleeping. Reports easy fatigue, and still sleeps quite a bit. Today was a tiring day. She went for podiatry appointment at [facility], then she and her went to the [facility] [employer] for lunch. [facility], but was too tired. Went home and went to bed. Patient reports she is healed on the outside, but not so sure about the inside. Continues with abdominal pain is up and about too much. Even if sitting up in the computer chair for too long, starts to have pain, and has to go lie down so she can "stretch out". Patient was seen by Dr Davis in oncology. Patient refuses/declines chemotherapy. Understands the cancer is not completely gone and will be back. Would like to continue with the CT scans every 3-6 months to monitor its growth. She would be agreeable to surgery, again, in the future, when it has grown to where it needs removed again - but no chemo. "I'm too old." Patient wants to travel to [place] and/or [place] - before she gets too bad to travel. She is planning to renew her passport, as it 5 or 6 years ago. Patient reports she will soon be running out of metoprolol, has never received mail order script from [facility]. Asking CM to send new order, making sure it is for twice a day as ordered. Last order received was only for once a day, and that is why she is running out too quick. Also needs her Eliquis ordered from [facility]. Last gotten from local pharmacy. Wants sent from [facility] as mail order is less expensive. Asking CM to send new order. Scripts pended and sent to PCP for signature. Patient also asking for appointments with Dr Magdaleno Wiley - who originally found her cancer, and with PCP, as she does not currently have one. Patient reports she doesn't see cardiology until July - and then it is with the [facility]. Reports she hasn't seen the doctor for awhile. Reports she is starting to have some angina again. Described as chest tightness, radiates down botharms. Using NTG to manage - as she did in past. "It's coming back again." Will only take the NTG when at home, when she can go lie down. If occurs when not at home, she won't take it. CM will send message to cardiology. Denies any other issues or needs. Asks that scheduling call her, not her daughter with these appointments. Next planned contact will be next week. documented in this encounter Plan of Treatment Upcoming Encounters Date Type Department Care Team (Late st Contact Info) Description 06/01/2023 10:00 AM EST Scheduled Telephone Ancillary [address] [place] [address] [place], Nurse Follow Up Phone Call Schedule [address] [place] [address] 07/23/2023 1:30 PM EST Office Visit [facility] [address] Rola Buchanan PA-C 132 [facility] [place] [address] 07/25/2023 10:20 AM EST Office Visit Podiatry [facility] 132 [facility] [place] [address] Viky Hughes DPM [address] [place], [place] [address] [address] 08/13/2023 9:30 AM EST Imaging Vascular Lab, [address] [place] [address] 08/13/2023 10:30 AM EST Imaging Vascular Lab, [address] [employer] 132 [facility] [place] [address] 08/15/2023 1:40 PM EST Office Visit Family Medicine [address] [place] [phone] Shonda Fields MD [address] [place] [address] [place] [address] 08/29/2023 2:30 PM EST Office Visit Vascular Surgery, [facility] 132 [facility] [place] [address] Zack Alcocer MD 100 [address] [facility] [place] [phone] 10/05/2023 10:00 AM EDT Nurse Only Ancillary [address] [place] [address] [place], Nurse Annual [address] [place] [address] 02/13/2024 9:30 AM EDT Cardiac Studies Cardiology, [facility] 132 [facility] [place] [address] [place] [facility] [address] [place] [address] Health Maintenance Due Date Last Done Comments [...] Screening 10/03/2023 10/02/2022 CKD HGB USE SMARTSET 77569 03/13/202403/13, 03/12/2023, 03/11/2023, Additional history exists CKD PHOS USE SMARTSET 63264 03/13/202403/02, 03/12/2023, 03/11/2023, Additional history exists Albumin/Creatinine Ratio 05/14/2024 023, 06/27/2022, 09/02/2021, Additional history exists DTaP,Tdap,and Td Vaccines (2 - Td or Tdap) 07/06/2024 07/06/2014, 09/13/2011 DXA Scan 01/18/2025 01/18/2023, 05/0 11/2020, 07/28/2013 Pneumococcal Vaccine: 65+ Years Completed 05/16/2017, 04/04/2013 VITAMIN D LEVEL ONCE IN A LIFETIME-USE SMARTSET# 15091 Completed 10/09/2022, 03/10/2022, 09/02/2021, Additional history exists [...] 9:45 AM EDT C. difficile 04/27/2023 04/27/2023 documented as of this encounter Advance Directives Documents on File Type Date Recorded Patient Mushroom Cultivator Expl anation Advance Directives and Living Will 01/27/2023 Christiane Chong ADVANCE DIRECTIVE / LIVING WILL Power of Building Principal 01/27/2023 POWER OF A TTORNEY Latest Code [...] Care Agent (per Health Care Power of Building Principal document) [email or web address] Other - (no specific identity) First Alternate Health Care Agent (per Health Care Power of Building Principal document) [email or web address] Care Teams Rail Layer Relationship Specialty Start Date End Date Shonda Fields MD [address] [place] [address] [place] [address] PCP - General Family Medicine 02/21/19 documented as of this encounter
--- OUTSIDE RECORDS SUMMARY | 2023-10-25 20:43 | External Medical Summary | Summary of Care ---
Author Name Unknown Organization [facility] Address [address] [place] [address] Phone [phone] Care Team Providers Care Band Lining Bander Name Role Phone Shonda Fields MD Primary Care Prov ider Reason for Visit * Reason Comments Follow Up Over 1 1/2 year foll ow up. Chest tightness and then radiates down arms- uses nitro and this relieves the symptoms. Occurs usually at night. Had stopped and now is reoccurring. Encounter Details Date Type Department Care Team (Late st Contact Info) Description 06/05/2023 2:30 PM EST Office Visit Cardiology, [facility] [address] [place] [address] Dulce Boudreaux CRNP [address] [place] [address] Coronary artery disease of [place] artery of [place] heart with stable angina pectoris (HCC)*; Paroxysmal atrial fibrillation (HCC); Sinus node dysfunction (HCC); Cardiac pacemaker in situ; HTN, goal below 140/90 Allergies Active Allergy Reactions Criticality Noted Date [...] as of this encounter (statuses as of 06/11/2023) Medications Medication Sig Dispensed Refills Start Date [...] coronary artery stent placement,Coronary artery disease of [place] artery of [place] heart with stable angina pectoris (HCC) Place [...] March 14, 2023. 30 Capsule 2 03/14/2023 06/12/20 23 Active Magnesium Hydroxide 400 MG/5ML Oral Suspension Take by mouth 2 times a day as needed for Constipation. 0 03/13/2023 Active Isosorbide Mononitrate ER 60 MG Oral Tablet Extended Release 24 Hour (Imdur)Indications: Coronary artery disease of [place] artery of [place] heart with stable angina pectoris (HCC) TAKE [...] in the morning. 0 05/04/2023 Active Pancrelipase (Hft-Bite-Eyrt) 3910-9469 UNIT Oral Capsule Delayed Release Particles (Creon [...] before bedtime. 275 Tablet 3 06/05/2023 Active Metoprolol Succinate ER 50 MG Oral Tablet Extended Release 24 Hour (toPROL XL) Take 1 Tablet by mouth in the morning and 1 Tablet before bedtime. 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), R forehead BCC 01/2012, Ramon L forehead 01/2010 (Efudex) documented as of this encounter (statuses as of 06/11/2023) Resolved Problems Problem Noted Date Diagnosed Date [...] artery 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[place] heart with stable angina pectoris 11/04/2018 07/25/2022 Acute pain of right knee 11/30/2017 Hx of actinic keratosis 06/23/2015 06/0 07/2017 Irritable bowel syndrome 11/16/201208/2017 Abdominal pain 11/16/2012 08/04/2017 IBS (irritable bowel syndrome) 09/13/2011 02/21/2019 Anticoagulation management encounter 09/13/2011 11/04/2018 Dermatochalasis 06/22/2011 01/31/2018 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 0 12/23/2012 documented as of this encounter (statuses as of 06/11/2023) Immunizations Name Administration Dates Next Due COVID-19 mRNA, LNP-s, No Pre serve, 2-Dose Series (Pfizer) 05/31/2021,10/20/2020,09/22/2020 Covid-19, Mrna, Lnp-s, Pf, B ivalent, [...] Sign Reading Time Taken Comments Blood Pressure 118/68 06/05/2023 2:27 PM EST Pulse 88 06/05/2023 2:27 PM EST Temperature - - Respiratory Rate 16 06/05/2023 2:27 PM EST Oxygen Saturation - - Inhaled Oxygen Concentration - - Weight 79.2 kg (174 lb 8 oz) 06/05/2023 2:27 PM EST Height - - Body Mass Index 27.33 04/06/2023 11:27 AM EDT documented in this [...] as of this encounter Progress Notes * Dulce Boudreaux CRNP - 06/05/2023 2:30 PM EST 06/05/2023 Cardiology Follow Up Primary Taker Out: Dr. Stephens Cardiac Problems: CAD s/p CABG x5 in 2005. BROWN to LAD, SVG to Diag, SVG to OM, SVT to RPDA, and SVG to distal RCA, repeat cath in 2010, vein grafts to RPDA and distal RCA territory occluded Dual chamber PPM 2012 IV contrast dye reaction resulting in shock and airway collapse. Pancreatic adenocarcinoma of the pancreatic neck. HPI: Milena W Croyle is a 82 year old female presents for routine cardiology follow up. Last seen in our office via Tele[facility] on 02/01/2023 due to profound fatigue and weakness, She had sinceundergone a generator change of her PPM. Patient underwent a whipple procedure at [facility] on 03/07/2023 and discharged on 03/13/2023 Patient states that she has been getting episodes of palpitations or feeling her heart racing with pain radiating down both arms. Last a few minutes and is relieved with SL NTG. She states that this is very different from her CAD symptoms. 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 Remains compliant on all medications with no untoward effects. REVIEW OF SYSTEMS: See HPI for pertinent positives. All others negative other than those noted in the HPI. CONSTITUTIONAL: No change in weight, No weakness, No fatigue and No fevers, No sweats or chills. PULMONARY: No cough, sputum, or hemoptysis, No wheezing, No shortness or breath and No recent change in breathing. CARDIOVASCULAR: No chest pain, No dyspnea on exertion, No edema, No palpitations and No syncope. GASTROINTESTINAL: No abdominal pain, No change in bowel habits, No significant heartburn, No nausea, No vomiting, No diarrhea, No constipation, No blood in stools or black tarry stools. No dysphagia. HEMATOLOGIC: No abnormal bleeding and No bruising. NEUROLOGICAL: Normal balance, No headaches and No weakness. Review of patient's allergies indicates: Allergen Reactions [...] NAUSEA AND VOMITING,ACHY Zetia [Ezetimibe] Muscle pain Current Outpatient Medications Medication Sig Dispense Refill [...] FOR ANXIETY OR INSOMNIA 30 Tablet 0 Omeprazole 40 MG Oral Capsule Delayed Release (PriLOSEC) Take 1 Capsule by mouth in the morning. Donot start before March 14, 2023. 30 Capsule 2 Isosorbide Mononitrate ER 60 MG Oral Tablet [...] 1-2 TABLETS FOUR TIMES DAILY NEEDED FOR BLOATING/EQH955 Tablet 5 Sertraline HCl 100 MG Oral Tablet (Zoloft) Take 0.5 Tablets by mouth in the morning. Pancrelipase (Ghi-Azul-Aydi) 3034-4183 UNIT Oral Capsule Delayed Release Particles (Creon 3000) Take 3 Capsules by mouth in the morning and 3 Capsules at noon and 3 Capsules in the evening. Take withmeals. 270 Capsule 5 Metoprolol Succinate ER 50 MG Oral Tablet Extended Release 24 Hour (toPROL XL) Take 1.5 Tablets by mouth in the morning and 1.5 Tablets before bedtime. 275 Tablet 3 Zoster Vac Recomb Adjuvanted 50 MCG/0.5ML Intramuscular Suspension Reconstituted (Shingrix) Inject 0.5 mL into a large muscle now and repeat dose in 60 to 180 days (Patient not taking: Reported on 06/05/2023) 1 Each 1 Ondansetron 4 MG Oral Tablet Disintegrating (Zofran) Place 1 Tablet on tongue every 8 hours as needed for Nausea. dissolve on tongue. 30 Tablet 5 Sennosides 8.6 MG Oral Tablet Take 1 Tablet by mouth daily as needed for Constipation. Magnesium Hydroxide 400 MG/5ML Oral Suspension Take by mouth 2 times a day as needed for Constipation. No current facility-administered medications for this visit. 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 02/23/2010 CAD (coronary artery disease), [place] coronary artery 2006 Cardiac pacemaker in situ 2006 Coronary bypass graft mechanical complication DVT (deep venous thrombosis) ([facility]) 2009 multiple Dyslipidemia, goal LDL below 100 09/13/2011 Esophageal reflux 09/13/2011 HTN, goal below 140/90 09/16/2011 HX-SKIN MALIGNANCY NEC 10/19/2010 Hyperlipemia Hypothyroid 2010 Hypothyroidism 09/13/2011 IBS (irritable bowel syndrome) 09/13/2011 IBS (irritable bowel syndrome) 09/13/2011 NSTEMI (non-ST elevated myocardial infarction) ([facility]) 02/21/2019 Other pulmonary embolism and infarction 2009 S/P coronary artery stent placement 2006 Family History Problem Relation Age of Onset Stroke Mother Neurological Disorder Mother seizures Other (Other) Father in WWII No Past Hx Father trauma Social History Socioeconomic History Marital status: Tobacco Use Smoking status: Never Smokeless tobacco: Never Vaping Use Vaping Use: Never used Substance and Sexual Activity Alcohol use: No Drug use: No Sexual activity: Not Currently Other Topics Concern Blood Transfusions Yes Social History Narrative 62yrs Social Determinants of Health Food Insecurity: No Food Insecurity (01/09/2023) Hunger Vital Sign Worried About Running Out of Food in the Last Year: Never true Ran Out of Food in the Last Year: Never true OBJECTIVE/PHYSICAL EXAMINATION: BP 118/68 | Pulse 88 | Resp 16 | Wt 79.2 kg (174 lb 8 oz) | BMI 27.33 kg/m | BSA 1.94 m General: No acute distress. A+Ox3. HEENT: Normocephalic. Atraumatic. PERRL. EOMI. Conjunctiva and sclera clear. NECK: No carotid bruits. No JVD. Carotid upstrokes are brisk. Heart: RRR. S1 and S2 noted. No murmur. No rubs or gallops. PMI non displaced. Lungs: Clear to auscultation. No wheezes.No rhonchi. No rales. Abdomen: Normal bowel sounds. Soft. Nontender. No masses or organomegaly. No abdominal bruits. Extremities: No edema. No clubbing or cyanosis. Pulses: radial=2/4, posterior tibial=2/4, dorsalis pedis = 2/4. NEURO: No focal deficits. PSYCH: Appropriate affect and insight. DATA Labs & Imaging Reviewed Below: Device interrogation 02/19/23 Normal Device Function Events or Alerts: 1 Battery: 3.23 V, 13.58 yrs Sensing, impedance and thresholds reviewed Programmed parameters reviewed Presenting rhythm: Atrial paced and ventricular sensed Heart Rate Histograms reviewed Stored EGMs are consistent with or suggestive of Atrial Fibrillation with Rapid Ventricular Response AT/AF [place]: 5.7% Total episodes: 1 Longest episode: 14 hours Fastest episode: 162 bpm Device interrogation 05/04/23 Stored EGMs are consistent with or suggestive of Atrial Fibrillation with Rapid Ventricular Response AT/AF [place]: 0.5% Total episodes: 11 Longest episode: 1.5 hours Fastest episode: 167 bpm EKG as performed in the emergency department at [facility] on 01/22/2023 reveals a ventricular paced rhythm at 65 beats per minute with P-waves noted immediately following the QRS complexes. Similar findings were noted that time for nuclear stress test on 01/26/2023. Summary of Lexiscan nuclear stress test performed 01/26/2023: The pharmacologic myocardial perfusion imaging study reveals a large sized fixed apical, inferior, and inferolateral perfusion defect consistent with scar in this territory without inducible ischemia. Gated SPECT images reveal inferior hypokinesis. The calculated left ventricular ejection fraction= 48% by gated SPECT technique (mildly reduced). Epigastric tightness noted with pharmacologic stress that resolved and the post- rest recovery interval. The stress EKG response is nondiagnostic due to the presence of the underlying paced rhythm. Summary of echocardiogram performed 12/30/2022, [facility] Moderate left ventricular hypertrophy noted in the segments with normal wall motion There is a moderate sized inferior and inferolateral wall motion abnormality with thinning and hypokinesis to akinesis of the segments Low normal LVEF at 50-55% Moderate left atrial enlargement Moderate mitral regurgitation Mild tricuspid regurgitation Doppler findings do not suggest pulmonary hypertension No pericardial effusion ASSESSMENT/PLAN: 82 year old year old female 1. Coronary artery disease of [place] artery of [place] heart with stable angina pectoris (HCC) -Denies any chest pain or her typical anginal equivelent. She does endorse an increase of palpitations. -Continue GDMT with Metoprolol Succinate (note dosage increase), and ASA. 2. Paroxysmal atrial fibrillation (HCC) -Sensing increased palpitations. Continue Toprol xl, but increase to 75mg daily - Metoprolol Succinate ER 50 MG Oral Tablet Extended Release 24 Hour (toPROL XL); Take 1.5 Tablets by mouth in the morning and 1.5 Tablets before bedtime. Dispense: 275 Tablet; Refill: 3 3. Sinus node dysfunction (HCC) 4. Cardiac pacemaker in situ -Normal device function. -Continue with routine checks 5. HTN, goal below 140/90 -At target. Coninue Toprol xl, amlodipine, and Imdur DISPOSITION: Follow up 6 months or if symptoms worsen/fail to improve. All questions were answered to the patients satisfaction. Patient advised to report to ED with any and all emergencies. The patient agrees to the above plan and will call with additional questions or concerns. SAHIL Ortiz Cardiology, [facility] [address] [facility] [place] [address] I spent a total of 42 minutes on the date of service in preparation, delivery, and documentation ofthe care provided to Milena Lozoya excluding any time spent in the performance of separately billed services. This chart was completed in part utilizing [employer] Speech Voice Recognition Software. Grammatical errors, random word insertions, pronoun errors, and incomplete sentences are an occasional consequence of this system due to software limitations, ambient noise, and hardware issues. Any formal questions or concerns about the content, text, or information contained within the body of this dictation should be directly addressed to the provider for clarification. documented in this encounter Nursing Notes * Mir Mei LPN - 06/05/2023 2:26 PM EST Patient identified by full name and date of Chief Complaint Patient presents with Follow Up Over 1 1/2 year follow up. Chest tightness and then radiates down arms- uses nitro and this relieves the symptoms. Occurs usually at night. Had stopped and now is reoccurring. Examination Room: 2 Name: Milena Lozoya Date of : (1940). Reason for Visit: Over 1 1/2 follow up Interim Hospitalization(s): [facility] ED 01/22/23, [facility] 12/29-01/02/23 Problems/Concerns: See chief complaint Chest Pain/SOB: See chief complaint [facility] Discussed: Not applicable [facility] is a way you can talk to your provider online through e-mail. Would you like to sign up? I can activate it for you? ALREADY ACTIVE Patient was instructed to not get up on the exam table until directed and assisted by their provider; patient is to remain seated in the chair/ wheelchair/ exam table for fall prevention and safety reasons. Patient is aware to have assistance to step down off exam table with personnel. Patient voiced full comprehension of instructions. documented in this encounter Plan of Treatment Upcoming Encounters Date Type Department Care Team (Late st Contact Info) Description 07/25/2023 10:20 AM EST Office Visit Podiatry [facility] [address] [facility] [place] [address] Viky Hughes DPM [address] [place] [address] [place] [address] 08/13/2023 9:30 AM EST Imaging Vascular Lab, [facility] 2nd Floor, [place] [address] [facility] [place] [address] 08/13/2023 10:30 AM EST Imaging Vascular Lab, [facility] 2nd [facility], [place] [address] [facility] [place] [address] 08/15/2023 1:40 PM EST Office Visit Family Medicine [address] [place] [phone] Shonda Fields MD [address] [place] [address] [place] [address] 08/29/2023 2:30 PM EST Office Visit Vascular Surgery, [address] [place] [address] Zack [facility]cocer [facility] [address] [facility] [address] 10/05/2023 10:00 AM EDT Nurse Only Ancillary [address] [place] [address] [place], Nurse [address] [place] [address] 12/25/2023 1:30 PM EDT Office Visit Cardiology, [facility] [address] [facility] [place] [address] Dulce Boudreaux CRNP [address] [facility] [place] [address] 02/13/2024 9:30 AM EDT Cardiac Studies Cardiology, [facility] [address] [facility] [place] [address] [facility] [address] [facility] [place] [address] Health Maintenance Due Date Last Done Comments [...] Screening 10/03/2023 10/02/2022 CKD HGB USE SMARTSET 62998 03/13/202403/13, 03/12/2023, 03/11/2023, Additional history exists CKD PHOS USE SMARTSET 46454 03/13/202403/02, 03/12/2023, 03/11/2023, Additional history exists Albumin/Creatinine Ratio 05/14/2024 023, 06/27/2022, 09/02/2021, Additional history exists DTaP,Tdap,and Td Vaccines (2 - Td or Tdap) 07/06/2024 07/06/2014, 09/13/2011 DXA Scan 01/18/2025 01/18/2023, 05/0 11/2020, 07/28/2013 Pneumococcal Vaccine: 65+ Years Completed 05/16/2017, 04/04/2013 VITAMIN D LEVEL ONCE IN A LIFETIME-USE SMARTSET# [id number] Completed 10/09/2022, 03/10/2022, 09/02/2021, Additional history exists [...] as of this encounter Visit Diagnoses Diagnosis Coronary artery disease of [place] artery of [place] heart with stable angina pectoris (HCC)- Primary Paroxysmal atrial fibrillation (HCC) Atrial fibrillation Sinus node dysfunction (HCC) Sinoatrial node dysfunction Cardiac pacemaker in situ HTN, goal below 140/90 Unspecified essential hypertension documented in this encounter Advance Directives Documents on File Type Date Recorded 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 Question Answer Comments Discussion of Advance Directives occurred with: Patient Healthcare Agents on File Name Relationship Healthcare Agent Relationship Communication Christiane Clark Adult Child Health Care Agent (per Health Care Power of Card Hanger document) [email or web address] Other - (no specific identity) First Alternate Health Care Agent (per Health Care Power of Card Hanger document) [email or web address] Care Teams Band Lining Bander Relationship Specialty Start Date End Date Shonda Fields MD [address] [place] [address] [place] [address] PCP - General Family Medicine 02/21/19 documented as of this encounter
--- OUTSIDE RECORDS SUMMARY | 2023-10-25 20:43 | External Medical Summary | Summary of Care ---
Author Name Unknown Organization [facility] Address [address] [place] [address] Phone [phone] Care Team Providers Care Retail Planning Manager Name Role Phone Shonda Fields MD Primary Care Prov ider Reason for Visit * Reason Comments Outpatient Testing Encounter Details Date Type Department Care Team (Late st Contact Info) Description 05/14/2023 12:20 PM EST Laboratory Laboratory [address] [place] [phone] , Specimen Drop Off [address] [place] [address] HTN, goal below 140/90; Diarrhea, unspecified type Allergies Active Allergy Reactions Criticality Noted Date [...] as of this encounter (statuses as of 05/14/2023) Medications Medication Sig Dispensed Refills Start Date [...] coronary artery stent placement,Coronary artery disease of [place] artery of [place] heart with stable angina pectoris (HCC) Place [...] 1 03/10/2022 Active Hydrocortisone 2.5 % External CreamIndications:Pieter matitis Apply [...] March 14, 2023. 30 Capsule 2 03/14/2023 06/12/2023 Active Magnesium Hydroxide 400 MG/5ML Oral Suspension Take by mouth 2 times a day as needed for Constipation. 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 180 Tablet 3 04/20/2023 Active Vancomycin HCl 125 MG Oral Capsule (Vancocin) Take 1 Capsule by mouth in the morning and 1 Capsule at noon and 1 Capsule in the evening and 1 Capsule before bedtime. Do all this for 14 days. 56 Capsule 0 04/30/2023 05/14/2023 Active Levothyroxine Sodium 50 MCG Oral Tablet [...] in the morning. 0 05/04/2023 Active Pancrelipase (Iuz-Zlst-Wyli) 0186-4533 UNIT Oral Capsule Delayed Release Particles (Creon 3000) Take 3 Capsules by mouth in the morning and 3 Capsules at noon and 3 Capsules in the evening. Take with meals. 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), R forehead BCC 01/2012, Ramon L forehead 01/2010 (Efudex) documented as of this encounter (statuses as of 05/14/2023) Resolved Problems Problem Noted Date Diagnosed Date [...] artery 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[place] heart with stable angina pectoris 11/04/2018 07/25/2022 Acute pain of right knee 11/30/2017 Hx of actinic keratosis 06/23/2015 06/0 07/2017 Irritable bowel syndrome 11/16/201208/2017 Abdominal pain 11/16/2012 08/04/2017 IBS (irritable bowel syndrome) 09/13/2011 02/21/2019 Anticoagulation management encounter 09/13/2011 11/04/2018 Dermatochalasis 06/22/2011 01/31/2018 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 0 12/23/2012 documented as of this encounter (statuses as of 05/14/2023) Immunizations Name Administration Dates Next Due COVID-19 mRNA, LNP-s, No Pre serve, 2-Dose Series ([employer]) 05/31/2021,10/20/2020,09/22/2020 Covid-19, Mrna, Lnp-s, Pf, B ivalent, [...] the money to buy more. Never true 10/03/19 23 Within the past 12 months, t he food you bought just didn't last and you didn't have money to get more. Never true 10/02/2022 Sex and Gender Information Value Date Recorded [...] 06/01/2023 10:00 AM EST Scheduled Telephone Ancillary [place] Philipp [address] [place] [address] [place], Nurse Follow Up Phone Call Schedule [address] [place] [address] 07/23/2023 1:30 PM EST Office Visit Cardiology, [facility] [address] [facility] [place] [address] Rola Buchanan PA-C [address] [facility] [place] [address] 07/25/2023 10:20 AM EST Office Visit Podiatry [facility] [address] [facility] [place] [address] Viky Hughes, DPMeghan [address] [place] [address] [place] [address] 08/13/2023 9:30 AM EST Imaging Vascular Lab, [address] [place] [address] 08/13/2023 10:30 AM EST Imaging Vascular Lab, [address] [facility] [place] [address] 08/15/2023 1:40 PM EST Office Visit Family Medicine [address] [place] [phone] Shonda Fields MD [address] [place] [address] [place] [address] 08/29/2023 2:30 PM EST Office Visit Vascular Surgery, [facility] [address] [facility] [place] [address] Zack Alcocer MD [address] [place] [address] 10/05/2023 10:00 AM EDT Nurse Only Ancillary [address] [place] [address] [place], Nurse Annual [address] [place] [address] 02/13/2024 9:30 AM EDT Cardiac Studies Cardiology, [facility] [address] [facility] [place] [address] [place], [facility] 132 [facility] [place] [address] Pending Results Name Type Priority Associated Diagnoses Date /Time ALBUMIN / CREATININE RATIO, URINE Lab Routine HTN, goal below 140/90 05/14/2023 12:26 PM EST FECAL FAT, QUALITATIVE Lab Routine Diarrhea, unspecified type 05/14/2023 12:27 PM EST Health Maintenance Due Date Last Done Comments *BISPHONATE OR OTHER ACCEPTABLE MEDICATION NEEDED FOR OSTEOPOROSIS (REFER TO SMARTSET #1146) 11/25/2022 COVID-19 Vaccine ( season) 2023 05/16/2022, 05/31/2021, 10/20/2020, Additional history exists Influenza Vaccine (FLU shot) (#1) 2023 06/09/2022, 05/17/2021, 05/12/2021, Additional history exists Albumin/Creatinine Ratio 06/27/2023 022, 09/02/2021, 08/08/2019 TSH 06/27/2023 06/27/2022, 08/02, 06/03/2021, Additional history exists GFR 09/11/2023 03/13/2023, 03/02, 03/11/2023, Additional history exists Depression Screening 10/03/2023 10/02/2022 CKD HGB USE SMARTSET 88709 03/13/202403/13, 03/12/2023, 03/11/2023, Additional history exists CKD PHOS USE SMARTSET 66286 03/13/202403/02, 03/12/2023, 03/11/2023, Additional history exists DTaP,Tdap,and Td Vaccines (2 - Td or Tdap) 07/06/2024 07/06/2014, 09/13/2011 DXA Scan 01/18/2025 01/18/2023, 05/0 11/2020, 07/28/2013 Pneumococcal Vaccine: 65+ Years Completed 05/16/2017, 04/04/2013 VITAMIN D LEVEL ONCE IN A LIFETIME-USE SMARTSET# 26059 Completed 10/09/2022, 03/10/2022, 09/02/2021, Additional history exists [...] as of this encounter Visit Diagnoses Diagnosis HTN, goal below 140/90 Unspecified essential hypertension Diarrhea, unspecified type documented in this encounter Additional Health Concerns Infection Onset Date Last Indicated Resolved Time C. difficile 04/27/2023 04/27/2023 documented as of this encounter Advance Directives Documents on File Type Date Recorded Patient Hemodialysis Charge Nurse Expl anation Advance Directives and Living Will 01/27/2023 Christiane Chong ADVANCE DIRECTIVE / LIVING WILL Power of Volunteer Firefighter 01/27/2023 POWER OF A TTORNEY Latest Code [...] Care Agent (per Health Care Power of Volunteer Firefighter document) [email or web address] - (no specific identity) First Alternate Health Care Agent (per Health Care Power of Volunteer Firefighter document) [email or web address] Online Care Teams Retail Planning Manager Relationship Specialty Start Date End Date Shonda Fields MD [address] [place] [address] [place] [address] PCP - General Family Medicine 02/21/19 documented as of this encounter
--- OUTSIDE RECORDS SUMMARY | 2023-10-25 20:43 | External Medical Summary | Summary of Care ---
Author Name Unknown Organization [facility] Address [address] [place] [address] Phone [phone] Care Team Providers Care Brake Reliner Name Role Phone Shonda Fields MD Primary Care Prov ider Encounter Details Date Type Department Care Team (Late st Contact Info) Description 05/09/2023 Telephone Family Medicine [address] [phone] Shonda Fields MD [address] [place] [address] [phone] Allergies Active Allergy Reactions Criticality Noted Date [...] as of this encounter (statuses as of 05/19/2023) Medications Medication Sig Dispensed Refills Start Date [...] coronary artery stent placement,Coronary artery disease of [place] artery of [place] heart with stable angina pectoris (HCC) Place [...] March 14, 2023. 30 Capsule 2 03/14/2023 Active Magnesium Hydroxide 400 MG/5ML Oral Suspension Take by mouth 2 times a day as needed for Constipation. 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 0 05/04/2023 Active Pancrelipase (Mvg-Hjzs-Ualn) 5896-8795 UNIT Oral Capsule Delayed Release Particles (Creon 3000) Take 3 Capsules by mouth in the morning and 3 Capsules at noon and 3 Capsules in the evening. Take with meals. 270 Capsule 5 05/08/2023 Active Vancomycin HCl 125 MG Oral Capsule (Vancocin) Take 1 Capsule by mouth in the morning and 1 Capsule at noon and 1 Capsule in the evening and 1 Capsule before bedtime. Do all this for 14 days. 56 Capsule 0 04/30/2023 3 documented as of this encounter (statuses as of 05/19/2023) Active Problems Problem Noted Date Diagnosed Date [...] artery 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[place] heart with stable angina pectoris 03/18/2020 Obesity, [...] as of this encounter (statuses as of 05/19/2023) Resolved Problems Problem Noted Date Diagnosed Date [...] artery 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[place] heart with stable angina pectoris 11/04/2018 07/25/2022 Acute pain of right knee 11/30/2017 Hx of actinic keratosis 06/23/2015 06/07/2017 Irritable bowel syndrome 11/16/201208/2017 Abdominal pain 11/16/2012 08/04/2017 IBS (irritable bowel syndrome) 09/13/2011 02/21/2019 Anticoagulation management encounter 09/13/2011 11/04/2018 Dermatochalasis 06/22/2011 01/31/2018 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 * Telephone Encounter - Arti Mancuso OSA - 05/09/2023 3:08 PM EST Called Pt to offer sooner appt in [place]. No answer, left message for return call. * Telephone Encounter - Arti Mancuso OSA - 05/09/2023 1:35 PM EST Images from the original note were not included. Rola Kelly PA-Shonda Don MD; Rina Nicole CRNP; Alistair [facility] Cardiology Scheduling Pool/Class Yes, patient with chronic angina, managed medically. We can try to get her a sooner appt to discuss though I'll forward to scheduling. Scheduling - Follows with Dr. Stephens or AP - please see if sooner appt is available, if not, place on wait list/cancellation list. Thanks Pt placed on wait list for sooner appointment as we do not have any openings in 1 week. Will call if we have any cancellations. * Telephone Encounter - Shonda Fields MD - 05/09/2023 10:29 AM EST Please schedule with cardiology within 1 week for palpitations and chest pain (intermittent) * Telephone Encounter - Shonda Fields MD - 05/09/2023 10:29 AM EST ----- Message from SAHIL Cantrell sent at 05/09/2023 8:40 AM EST ----- Regarding: RE: Cardiology appt Ok thank you ----- Message ----- From: Shonda Fields MD Sent: 05/08/2023 5:07 PM EST To: Rola Buchanan PA-C; # Subject: RE: Cardiology appt She does have chronic angina... so I'll see what Gianna thinks. She should be seen I think, to be safe. ThanksShonda ----- Message ----- From: Rina Nicole CRNP Sent: 05/08/2023 10:54 AM EST To: Rola Buchanan PA-C; # Subject: Cardiology appt Miguel Katz and Dr. Joshua Oseguera, I saw this pt today and she mentions intermittent palpitations and chest pressure w radiation to L arm. No symptoms on visit today. She doesn't have Cardiology appt till 07/2023. Any chance she could be seen and evaluated sooner? ThanksRina documented in this encounter Plan of Treatment Upcoming Encounters Date Type Department Care Team (Late st Contact Info) Description 06/01/2023 10:00 AM EST Scheduled Telephone Ancillary Janine Segal[address] [place] [address] [place], Nurse Follow Up Phone Call Schedule [address] [place] [address] 07/23/2023 1:30 PM EST Office Visit Cardiology, [address] [place] [address] Rola Buchanan PA-C [address] [facility] [place] [address] 07/25/2023 10:20 AM EST Office Visit Podiatry [address] [place] [address] Viky Hughes, DPM [facility] [place] [address] 08/13/2023 9:30 AM EST Imaging Vascular Lab, [facility] [address] [place] [address] 08/13/2023 10:30 AM EST Imaging Vascular Lab, [address] [place] [address] 08/15/2023 1:40 PM EST Office Visit Family Medicine [address] [place] [phone] Shonda Fields MD [address] [place] [address] [place] [address] 08/29/2023 2:30 PM EST Office Visit Vascular Surgery, [address] [place] [address] Zack Alcocer MD [address] [place] [address] 10/05/2023 10:00 AM EDT Nurse Only Ancillary [address] [place] [address] [place], Nurse [address] [place] [address] 02/13/2024 9:30 AM EDT Cardiac Studies Cardiology, [facility] [address] [place] [address] [place] Pacer [facility] [address] [place] [address] Health Maintenance Due Date Last Done Comments [...] Screening 10/03/2023 10/02/2022 CKD HGB USE SMARTSET 77199 03/13/202403/13, 03/12/2023, 03/11/2023, Additional history exists CKD PHOS USE SMARTSET 15178 03/13/202403/02, 03/12/2023, 03/11/2023, Additional history exists Albumin/Creatinine Ratio 05/14/2024 023, 06/27/2022, 09/02/2021, Additional history exists DTaP,Tdap,and Td Vaccines (2 - Td or Tdap) 07/06/2024 07/06/2014, 09/13/2011 DXA Scan 01/18/2025 01/18/2023, 05/11/2020, 07/28/2013 Pneumococcal Vaccine: 65+ Years Completed 05/16/2017, 04/04/2013 VITAMIN D LEVEL ONCE IN A LIFETIME-USE SMARTSET# 73891 Completed 10/09/2022, 03/10/2022, 09/02/2021, Additional history exists [...] Documents on File Type Date Recorded Patient Mixer Operator Tablets Expl anation Advance Directives and Living Will 01/27/2023 Christiane Chong ADVANCE DIRECTIVE / LIVING WILL Power of Lock Stitch Channeler 01/27/2023 POWER OF A TTORNEY Latest Code [...] Care Agent (per Health Care Power of Lock Stitch Channeler document) [email or web address] - (no specific identity) First Alternate Health Care Agent (per Health Care Power of Lock Stitch Channeler document) [email or web address] Care Teams Brake Reliner Relationship Specialty Start Date End Date Shonda Fields MD [address] [place] [address] [place] [phone] PCP - General Family Medicine 02/21/19 documented as of this encounter
--- OUTSIDE RECORDS SUMMARY | 2023-10-25 20:43 | External Medical Summary | Summary of Care ---
Author Name Unknown Organization [facility] Address [address] [place] [address] Phone [phone] Care Team Providers Care Wood Engraver Name Role Phone Shonda Fields MD Primary Care Prov ider Encounter Details Date Type Department Care Team (Late st Contact Info) Description 05/09/2023 Telephone Family Medicine [address] [phone] Shonda Fields MD [address] [place] [address] [phone] Allergies Active Allergy Reactions Criticality Noted Date [...] as of this encounter (statuses as of 05/09/2023) Medications Medication Sig Dispensed Refills Start Date [...] coronary artery stent placement,Coronary artery disease of [place] artery of [place] heart with stable angina pectoris (HCC) Place [...] 24 Hour (Imdur)Indications: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 0 05/04/2023 Active Pancrelipase (Oal-Ldrk-Avof) 9683-5762 UNIT Oral Capsule Delayed Release Particles (Creon 3000) Take 3 Capsules by mouth in the morning and 3 Capsules at noon and 3 Capsules in the evening. Take with meals. 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), R forehead BCC 01/2012, Ramon L forehead 01/2010 (Efudex) documented as of this encounter (statuses as of 05/09/2023) Resolved Problems Problem Noted Date Diagnosed Date [...] artery 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[place] heart with stable angina pectoris 11/04/2018 07/25/2022 Acute pain of right knee 11/30/2017 Hx of actinic keratosis 06/23/2015 06/0 07/2017 Irritable bowel syndrome 11/16/201208/2017 Abdominal pain 11/16/2012 08/04/2017 IBS (irritable bowel syndrome) 09/13/2011 02/21/2019 Anticoagulation management encounter 09/13/2011 11/04/2018 Dermatochalasis 06/22/2011 01/31/2018 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 0 12/23/2012 documented as of this encounter (statuses as of 05/09/2023) Immunizations Name Administration Dates Next Due COVID-19 mRNA, LNP-s, No Pre serve, 2-Dose Series ([employer] 05/31/2021,10/20/2020,09/22/2020 Covid-19, Mrna, Lnp-s, Pf, B ivalent, [...] or making decisions? (5 years old or older No 03/07/2023 documented as of this encounter Miscellaneous Notes * Telephone Encounter - Arti Mancuso OSA - 05/09/2023 3:08 PM EST Called Pt to offer sooner appt in [place]. No answer, left message for return call. * Telephone Encounter - Arti Mancuso OSA - 05/09/2023 1:35 PM EST Images from the original note were not included. Rola Kelly PA-C Frank Dixon, Kristen Lianne, MD; Rina Nicole CRNP; Alistair [facility] Cardiology Scheduling Pool/Class Yes, patient with chronic [...] be seen I think, to be safe. Shonda Mahmood ----- Message ----- From: Rina Nicole CRNP [...] she could be seen and evaluated sooner? Rina Mahmood documented in this encounter Plan of Treatment Upcoming Encounters Date Type Department Care Team (Late st Contact Info) Description 06/01/2023 10:00 AM EST Scheduled Telephone Ancillary Janine Segal [address] [place] [address] [place], Nurse Follow Up Phone Call Schedule [address] [place] [address] 07/23/2023 1:30 PM EST Office Visit Cardiology, [facility] [address] [place] [address] Rola Buchanan PA-C [address] [place] [address] 07/25/2023 10:20 AM EST Office Visit Podiatry [address] [place] [address] Viky Hughes, DPM [address] [place] [address] 08/13/2023 9:30 AM EST Imaging Vascular Lab, [facility] [address] [place] [address] 08/13/2023 10:30 AM EST Imaging Vascular Lab, [address] [place] [address] 08/15/2023 1:40 PM EST Office Visit Family Medicine [address] [place] [phone] Shonda Fields MD [address] [place] [address] [place] [address] 08/29/2023 2:30 PM EST Office Visit Vascular Surgery, [address] [place] [address] Zack Alcocer MD [address] [place] [address] 10/05/2023 10:00 AM EDT Nurse Only Ancillary [address] [place] [address] [place], Nurse [address] [place] [address] 02/13/2024 9:30 AM EDT Cardiac Studies Cardiology, [address] [place] [address] [facility] [address] [place] [address] Health Maintenance Due Date Last Done Comments [...] Screening 10/03/2023 10/02/2022 CKD HGB USE SMARTSET 22076 03/13/202403/13, 03/12/2023, 03/11/2023, Additional history exists CKD PHOS USE SMARTSET 04911 03/13/202403/02, 03/12/2023, 03/11/2023, Additional history exists DTaP,Tdap,and Td Vaccines (2 - Td or Tdap) 07/06/2024 07/06/2014, 09/13/2011 DXA Scan 01/18/2025 01/18/2023, 05/0 11/2020, 07/28/2013 Pneumococcal Vaccine: 65+ Years Completed 05/16/2017, 04/04/2013 VITAMIN D LEVEL ONCE IN A LIFETIME-USE SMARTSET# 02158 Completed 10/09/2022, 03/10/2022, 09/02/2021, Additional history exists [...] on File Type Date Recorded Patient Supervisor Silvering Department Expl anation Advance Directives and Living Will 01/27/2023 Christiane Chong ADVANCE DIRECTIVE / LIVING WILL Power of Wet Pan Mixer 01/27/2023 POWER OF A TTORNEY Latest Code [...] Agent (per Health Care Power of Wet Pan Mixer document) [email or web address] - (no specific identity) First Alternate Health Care Agent (per Health Care Power of Wet Pan Mixer document) [email or web address] Care Teams Wood Engraver Relationship Specialty Start Date End Date Shonda Fields MD [address] [place] [address] [place] [address] PCP - General Family Medicine 02/21/19 documented as of this encounter
--- OUTSIDE RECORDS SUMMARY | 2023-10-25 20:43 | External Medical Summary | Summary of Care ---
Author Name Unknown Organization [facility] Address [address] [place] [address] Phone [phone] Care Team Providers Care Records Analysis Manager Name Role Phone Shonda Fields MD Primary Care Prov ider Reason for Visit * Reason Onset Date Comments Medication Update 06/01/2023 Sertraline Encounter Details Date Type Department Care Team (Late st Contact Info) Description 06/01/2023 10:00 AM EST Scheduled Telephone Ancillary Janine Segal [address] [place] [address] Philipp, Nurse Follow Up Phone Call Schedule [address] [place] [address] Arrived Allergies Active Allergy Reactions Criticality Noted [...] as of this encounter (statuses as of 06/01/2023) Medications Medication Sig Dispensed Refills Start Date [...] coronary artery stent placement,Coronary artery disease of [place] artery of [place] heart with stable angina pectoris (HCC) Place [...] 24 Hour (Imdur)Indications: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 0 05/04/2023 Active Pancrelipase (Pkd-Dqos-Vosc) 8259-1808 UNIT Oral Capsule Delayed Release Particles (Creon 3000) Take 3 Capsules by mouth in the morning and 3 Capsules at noon and 3 Capsules in the evening. Take with meals. 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), R forehead BCC 01/2012, Ramon L forehead 01/2010 (Efudex) documented as of this encounter (statuses as of 06/01/2023) Resolved Problems Problem Noted Date Diagnosed Date [...] artery 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[place] heart with stable angina pectoris 11/04/2018 07/25/2022 Acute pain of right knee 11/30/2017 Hx of actinic keratosis 06/23/2015 0607/2017 Irritable bowel syndrome 11/16/201208/2017 Abdominal pain 11/16/2012 08/04/2017 IBS (irritable bowel syndrome) 09/13/2011 02/21/2019 Anticoagulation management encounter 09/13/2011 11/04/2018 Dermatochalasis 06/22/2011 01/31/2018 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 0 12/23/2012 documented as of this encounter (statuses as of 06/01/2023) Immunizations Name Administration Dates Next Due COVID-19 mRNA, LNP-s, No Pre serve, 2-Dose Series ([employer]) 05/31/2021,10/20/2020,09/22/2020 Covid-19, Mrna, Lnp-s, Pf, B ivalent, 30 Mcg, IM, 12 yrs and above ([employer]) 05/16/2022 Pneumococcal Conjugate Vacc, 13 Valent (Prevnar) [...] Telephone Encounter - Janki Simmons LPN - 06/01/2023 10:54 AM EST Sully is Not available at this time , but Daughter Christiane will give her message when she gets home to contact us back about Sertraline medication. She will call [phone] documented in this encounter Plan of Treatment Upcoming Encounters Date Type Department Care Team (Late st Contact Info) Description 06/05/2023 2:30 PM EST Office Visit Cardiology, [facility] 132 [facility] [place] [address] Dulce Boudreaux CRNP 132 [facility] [place] [address] 07/25/2023 10:20 AM EST Office Visit Podiatry [facility] 132 [facility] [place] [address] Viky Hughes, [address] [place] [address] 08/13/2023 9:30 AM EST Imaging Vascular Lab, [address] [place] [address] 08/13/2023 10:30 AM EST Imaging Vascular Lab, [address] 132 [facility] [place] [address] 08/15/2023 1:40 PM EST Office Visit [address] [phone] Shonda Fields MD [address] [place] [address] [place] [address] 08/29/2023 2:30 PM EST Office Visit Vascular Surgery, [facility] 132 [facility] [place] [address] Zack Alcocer MD [address] [place] [address] 10/05/2023 10:00 AM EDT Nurse Only Ancillary [address] [place] [address] Edel, Nurse [address] [place] [address] 02/13/2024 9:30 AM EDT Cardiac Studies Cardiology, [facility] 132 [facility] [place] [address] [place], Pacer Clinic [facility] 132 [facility] [place] [address] Health Maintenance Due Date Last Done Comments [...] Screening 10/03/2023 10/02/2022 CKD HGB USE SMARTSET 64138 03/13/202403/13, 03/12/2023, 03/11/2023, Additional history exists CKD PHOS USE SMARTSET 73082 03/13/202403/02, 03/12/2023, 03/11/2023, Additional history exists Albumin/Creatinine Ratio 05/14/2024 023, 06/27/2022, 09/02/2021, Additional history exists DTaP,Tdap,and Td Vaccines (2 - Td or Tdap) 07/06/2024 07/06/2014, 09/13/2011 DXA Scan 01/18/2025 01/18/2023, 05/0 11/2020, 07/28/2013 Pneumococcal Vaccine: 65+ Years Completed 05/16/2017, 04/04/2013 VITAMIN D LEVEL ONCE IN A LIFETIME-USE SMARTSET# [id number] Completed 10/09/2022, 03/10/2022, 09/02/2021, Additional history exists [...] Documents on File Type Date Recorded Patient Rn Heart Expl anation Advance Directives and Living Will 01/27/2023 Christiane Chong ADVANCE DIRECTIVE / LIVING WILL Power of Event Planning Intern 01/27/2023 POWER OF A TTORNEY Latest Code [...] Care Agent (per Health Care Power of Event Planning Intern document) [email or web address] Other - (no specific identity) First Alternate Health Care Agent (per Health Care Power of Event Planning Intern document) [email or web address] Care Teams Records Analysis Manager Relationship Specialty Start Date End Date Shonda Fields MD [address] [place] [address] [place] [address] PCP - General Family Medicine 02/21/19 documented as of this encounter
--- OUTSIDE RECORDS SUMMARY | 2023-10-25 20:43 | External Medical Summary ---
Author Name Unknown Address Unknown Organization K01:LABORATORY [facility] - [facility] [address] [place] [address] Laboratory Report Ordering Provider Test Date Status NASIR LONGO 05/14/2023 12:26:33 Final Normal: <30 mg/g creatinine< br/>High: 30-300 mg/g creatinine
Very High: >300 mg/g creatinine
Nephrotic: >2200 mg/g creatinine Observation Date Value Abnormality Reference (Units ) Status Albumin, Urine 05/14/2023 12:26:33 2.89 (mg/dL) Final Creatinine, Urine 05/14/2023 12:26:33 78 (mg/dL) Final Albumin/Creatinine [Mass Ratio] in Urine 05/14/2023 12:26:33 37 Above high normal <30 (mg/g Creat) Final Performing Location [facility] [place] [address]
--- OUTSIDE RECORDS SUMMARY | 2023-10-25 20:43 | External Medical Summary | Summary of Care ---
Author Name Unknown Organization [facility] Address [address] [place] [address] Phone [phone] Care Team Providers Care Brick Chimney Builder Name Role Phone Shonda Fields MD Primary Care Prov ider Reason for Visit * Reason Onset Date Comments Medication Update 06/01/2023 Sertraline Encounter Details Date Type Department Care Team (Late st Contact Info) Description 06/01/2023 10:00 AM EST Scheduled Telephone Ancillary Janine Segal [address] [place] [address] Philipp, Nurse Follow Up Phone Call Schedule [address] [place] [address] Arrived Allergies Active Allergy Reactions Criticality Noted [...] coronary artery stent placement,Coronary artery disease of [place] artery of [place] heart with stable angina pectoris (HCC) Place [...] 24 Hour (Imdur)Indications: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 She still hassome anxiety but feels like it is manageable with the dose that she is at. No further stomach cramping or headaches. * Telephone Encounter - Janki Simmons LPN - 06/01/2023 10:54 AM EST Sully is Not available at this time , but Daughter Christiane will give her message when she gets home to contact us back about Sertraline medication. She will call [phone] documented in this encounter Plan of Treatment Upcoming Encounters Date Type Department Care Team (Late st Contact Info) Description 06/05/2023 2:30 PM EST Office Visit Cardiology, [facility] 132 [facility] [place] [address] Dulce Boudreaux CRNP 132 [facility] [place] [address] 07/25/2023 10:20 AM EST Office Visit Podiatry [facility] 132 [facility] [place] [address] Viky Hughes DPM [address] [place] [address] 08/13/2023 9:30 AM EST Imaging Vascular Lab, [address] [place] [address] 08/13/2023 10:30 AM EST Imaging Vascular Lab, [address] [place] [address] 08/15/2023 1:40 PM EST Office Visit Family Medicine [address] [place] [phone] Shonda Fields MD [address] [place] [address] [place] [address] 08/29/2023 2:30 PM EST Office Visit Vascular Surgery, [address] [place] [address] Zack Alcocer MD [address] [place] [address] 10/05/2023 10:00 AM EDT Nurse Only Ancillary [address] [place] [address] Edel, Nurse [address] [place] [address] 02/13/2024 9:30 AM EDT Cardiac Studies Cardiology, [address] [place] [address] [place] [facility] [address] [place] [address] Health Maintenance Due Date Last Done Comments [...] Screening 10/03/2023 10/02/2022 CKD HGB USE SMARTSET 64056 03/13/202403/13, 03/12/2023, 03/11/2023, Additional history exists CKD PHOS USE SMARTSET 66457 03/13/202403/02, 03/12/2023, 03/11/2023, Additional history exists Albumin/Creatinine Ratio 05/14/2024 023, 06/27/2022, 09/02/2021, Additional history exists DTaP,Tdap,and Td Vaccines (2 - Td or Tdap) 07/06/2024 07/06/2014, 09/13/2011 DXA Scan 01/18/2025 01/18/2023, 05/0 11/2020, 07/28/2013 Pneumococcal Vaccine: 65+ Years Completed 05/16/2017, 04/04/2013 VITAMIN D LEVEL ONCE IN A LIFETIME-USE SMARTSET# [id number] Completed 10/09/2022, 03/10/2022, 09/02/2021, Additional history exists [...] Documents on File Type Date Recorded 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 Advance Directives and Living Will 01/27/2023 Christiane Chong ADVANCE DIRECTIVE / LIVING WILL Power of Vp Legal Affairs 01/27/2023 POWER OF A TTORNEY Latest Code [...] Care Agent (per Health Care Power of Vp Legal Affairs document) [email or web address] Other - (no specific identity) First Alternate Health Care Agent (per Health Care Power of Vp Legal Affairs document) che Care Teams Brick Chimney Builder Relationship Specialty Start Date End Date Shonda Fields MD [address] [place] [address] [place] [address] PCP - General Family Medicine 02/21/19 documented as of this encounter
--- OUTSIDE RECORDS SUMMARY | 2023-10-25 20:43 | External Medical Summary | Summary of Care ---
Author Name Unknown Organization [facility] Address [address] [place] [address] Phone [phone] Care Team Providers Care Attendant Coin Operated Laundry Name Role Phone Shonda Fields MD Primary Care Prov ider Reason for Visit * Reason Onset Date Comments Order Request 03/14/2023 case management 03/14/2023 Encounter Details Date Type Department Care Team (Late st Contact Info) Description 03/14/2023 Telephone Family [address] [address] Shonda Fields MD [address] [place] [address] [place] [address] Order Request; case management Allergies Active Allergy [...] as of this encounter (statuses as of 06/13/2023) Medications Medication Sig Dispensed Refills Start Date End Date Status ASPIRIN EC 81 MG PO TBEC 1 TABLET DAILY 0 5 Active acetaminophen (TYLENOL) 500 MG Tablet Take 2 Tablets by mouth every 8 hours as needed for Pain. 0 Active Diclofenac Sodium 1 % External Gel (Voltaren)Indicati ons:Shoulder arthritis Apply topically to affected area daily. 100 g 1 1 Active Vitamin D3 25 MCG Oral Tablet 5 Tablets. Pt taking every other day 0 1 Active Nitroglycerin 0.4 MG Sublingual Tablet Sublingual (Nitrostat)Indicat ions:S/P coronary artery stent placement,Coronary artery disease of [place] artery of [place] heart with stable angina pectoris (HCC) Place under the tongue 1 Tablet every 5 minutes as needed for Pain, Chest. up to 3 doses in 15 minutes 150 Tablet 3 2 Active Zoster Vac Recomb Adjuvanted 50 MCG/0.5ML Intramuscular Suspension Reconstituted (Shingrix)Indicati ons:Need for shingles vaccine Inject 0.5 mL into a large muscle now and repeat dose in 60 to 180 days 1 Each 1 2 Active Additional Information Patient not taking.Reported on 06/05/2023 Hydrocortisone 2.5 % External CreamIndications:D ermatitis Apply to affected area nightly as needed for up to a week. Take at least a 2 week break between treatments. 28 g 0 2 Active Calcium 600-D 600-400 MG-UNIT Oral Tablet Take 1 Tablet by mouth in the morning. In the morning.. 0 2 Active Cholestyramine 4 GM Oral Packet (Questran) Take 1 Packet by mouth every other day. Mixed with liquid. 90 Packet 1 3 Active amLODIPine Besylate 5 MG Oral Tablet (Norvasc)Indicatio ns:HTN, goal below 140/90 Take 1 Tablet by mouth in the morning. 30 Tablet 5 3 Active Ondansetron 4 MG Oral Tablet Disintegrating (Zofran)Indication s:Vomiting and diarrhea Place 1 Tablet on tongue every 8 hours as needed for Nausea. dissolve on tongue. 30 Tablet 5 3 Active Potassium Chloride Debi ER 20 MEQ Oral Tablet Extended Release Take 1 Tablet by mouth in the morning and 1 Tablet before bedtime. 60 Tablet 11 3 Active ALPRAZolam 0.25 MG Oral Tablet (xaNAX)Indications :Stress TAKE ONE TABLET BY MOUTH THREE TIMES DAILY NEEDED FOR ANXIETY OR INSOMNIA 30 Tablet 0 3 Active Sennosides 8.6 MG Oral Tablet Take 1 Tablet by mouth daily as needed for Constipation. 0 3 Active Dicyclomine HCl 10 MG Oral Capsule (Bentyl)Indication s:Gastroesophageal reflux disease without esophagitis Take by mouth 1 Capsule as needed in the morning AND 1 Capsule as needed at noon AND 1 Capsule as needed in the evening AND 1 Capsule as needed before bedtime for Indigestion. For abdominal pain. 120 Capsule 5 2 023 Discontinued(Re fill) Isosorbide Mononitrate ER 60 MG Oral Tablet Extended Release 24 Hour (Imdur)Indications :Coronary artery disease of [place] artery of [place] heart with stable angina pectoris (HCC) TAKE 2 TABLETS IN THE MORNING AND 1 TABLET IN THE EVENING 270 Tablet 3 2 023 Discontinued Simethicone 80 MG Oral Tablet ChewableIndication s:Esophageal spasm CHEW 1-2 TABLETS FOUR TIMES DAILY NEEDED FOR BLOATING/GAS 100 Tablet 5 3 023 Discontinued(Re fill) Levothyroxine Sodium 50 MCG Oral Tablet (Levoxyl)Indicatio ns:Acquired hypothyroidism Take by mouth 1 Tablet in the morning. (at least 30 min prior to breakfast or other meds). 90 Tablet 1 3 023 Discontinued(Re fill) Metoprolol Succinate ER 50 MG Oral Tablet Extended Release 24 Hour (toPROL XL) Take 1 Tablet by mouth in the morning and 1 Tablet before bedtime. 30 Tablet 0 3 023 Discontinued(Re fill) Apixaban 5 MG Oral Tablet (Eliquis) Take 1 Tablet by mouth in the morning and 1 Tablet before bedtime. 60 Tablet 5 3 023 Discontinued(Re fill) Sertraline HCl 100 MG Oral Tablet (Zoloft)Indication s:Adjustment disorder with anxious mood Take 1 Tablet by mouth in the morning. 90 Tablet 1 3 023 Discontinued(Re fill) oxyCODONE HCl 5 MG Oral Tablet (Oxy IR) Take 1 Tablet by mouth every 8 hours as needed for severe incisional pain, for up to 7 days. 20 Tablet 0 3 023 Omeprazole 40 MG Oral Capsule Delayed Release (PriLOSEC) Take 1 Capsule by mouth in the morning. Do not start before March 14, 2023. 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), R forehead BCC 01/2012, Ramon L forehead 01/2010 (Efudex) documented as of this encounter (statuses as of 06/13/2023) Resolved Problems Problem Noted Date Diagnosed Date [...] artery 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[place] heart with stable angina pectoris 11/04/2018 07/25/2022 Acute pain of right knee 11/30/2017 Hx of actinic keratosis 06/23/2015 06/0 07/2017 Irritable bowel syndrome 11/16/201208/2017 Abdominal pain 11/16/2012 08/04/2017 IBS (irritable bowel syndrome) 09/13/2011 02/21/2019 Anticoagulation management encounter 09/13/2011 11/04/2018 Dermatochalasis 06/22/2011 01/31/2018 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 0 12/23/2012 documented as of this encounter (statuses as of 06/13/2023) Immunizations Name Administration Dates Next Due COVID-19 mRNA, LNP-s, No Pre serve, 2-Dose Series ([employer]) 05/31/2021,10/20/2020,09/22/2020 Covid-19, Mrna, Lnp-s, Pf, B ivalent, [...] Telephone Encounter - Berna Kelly RN - 03/14/2023 1:14 PM EDT Patient was referred to [facility] Nurses/home health. I did call to verify the referral had been received from [facility] - yes, they have the referral, but they were unaware that she was discharged yesterday. Confirmed discharge date as of 03/13/23. They will follow up. * Telephone Encounter - Yang JOI Stafford - 03/14/2023 11:29 AM EDT An order was requested for this patient. Name of Requesting Provider: Shonda Oseguera MD Order Requested: Home Health Nursing Diagnosis/Reason for Request: Pancreatic cancer recovery If order request is for Mammogram: Is the patient having any breast symptoms? N/A Is there a chance of ? N/A Has the patient had any breast problems in the past? NA Does the order need to be faxed somewhere? If so, where?: Yes, any home health nursing in the area. Fax Number, if applicable: N/A Call Back Number: [phone] If the caller is not a current patient, please advise the patient to call their current PCP to havethe order's prior to being seen in our office. The patient was informed that our providers would not order anything (medication, labs, etc.) prior to being seen. documented in this encounter Plan of Treatment Upcoming Encounters Date Type Department Care Team (Late st Contact Info) Description 07/25/2023 10:20 AM EST Office Visit Podiatry [address] [place] [address] Viky Hughes, JENN [address] [place], [place] [address] [address] 08/13/2023 9:30 AM EST Imaging Vascular Lab, [facility] 2nd [facility], [address] [place] [address] 08/13/2023 10:30 AM EST Imaging Vascular Lab, [facility] 2nd [facility], [address] [place] [address] 08/15/2023 1:40 PM EST Office Visit Family Medicine [address] [place] [address] Shonda Fields MD [address] [place] [address] [place] [address] 08/29/2023 2:30 PM EST Office Visit Vascular Surgery, [address] [place] [address] Zack Alcocer MD [address] [place] [address] 10/05/2023 10:00 AM EDT Nurse Only Ancillary [address] [place] [address] Edel, Nurse [address] [place] [address] 12/25/2023 1:30 PM EDT Office Visit Cardiology, [address] [place] [address] Dulce Boudreaux, SAHIL [address] [place] [address] 02/13/2024 9:30 AM EDT Cardiac Studies Cardiology, [facility] [address] [place] [address] [place] [facility] [address] [place] [address] Health Maintenance Due Date Last Done Comments [...] Screening 10/03/2023 10/02/2022 CKD HGB USE SMARTSET 54657 03/13/202403/13, 03/12/2023, 03/11/2023, Additional history exists CKD PHOS USE SMARTSET 80496 03/13/202403/02, 03/12/2023, 03/11/2023, Additional history exists Albumin/Creatinine Ratio 05/14/2024 023, 06/27/2022, 09/02/2021, Additional history exists DTaP,Tdap,and Td Vaccines (2 - Td or Tdap) 07/06/2024 07/06/2014, 09/13/2011 DXA Scan 01/18/2025 01/18/2023, 05/11/2020, 07/28/2013 Pneumococcal Vaccine: 65+ Years Completed 05/16/2017, 04/04/2013 VITAMIN D LEVEL ONCE IN A LIFETIME-USE SMARTSET# [id number] Completed 10/09/2022, 03/10/2022, 09/02/2021, Additional history exists [...] Documents on File Type Date Recorded 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 Advance Directives and Living Will 01/27/2023 Christiane Chong ADVANCE DIRECTIVE / LIVING WILL Power of Supervisor Screen Making 01/27/2023 POWER OF A TTORNEY Latest Code [...] Care Agent (per Health Care Power of Supervisor Screen Making document) [email or web address] Other - (no specific identity) First Alternate Health Care Agent (per Health Care Power of Supervisor Screen Making document) [email or web address] Care Teams Attendant Coin Operated Laundry Relationship Specialty Start Date End Date Shonda Fields MD [address] [place] [address] [place] [phone] PCP - General Family Medicine 02/21/19 documented as of this encounter
--- OUTSIDE RECORDS SUMMARY | 2023-10-25 20:43 | External Medical Summary | Summary of Care ---
Author Name Unknown Organization [facility] Address [address] [place] [address] Phone [phone] Care Team Providers Care Formula Clerk Name Role Phone Shonda Fields MD Primary Care Prov ider Encounter Details Date Type Department Care Team (Late st Contact Info) Description 05/09/2023 Telephone Family Medicine [address] [phone] Shonda Fields MD [address] [place] [address] [phone] Allergies Active Allergy Reactions Criticality Noted Date [...] in the morning. 0 05/04/2023 Active Pancrelipase (Tpj-Sywe-Qnvq) 9311-7730 UNIT Oral Capsule Delayed Release Particles (Creon [...] mRNA, LNP-s, No Pre serve, 2-Dose Series ([employer]) 05/31/2021,10/20/2020,09/22/2020 Covid-19, Mrna, Lnp-s, Pf, B ivalent, [...] Dixon, Kristen Lianne, MD; Rina Nicole CRNP; P [facility] Cardiology Scheduling Pool/Class Yes, patient with chronic [...] be seen I think, to be safe. Thanks, Shonda ----- Message ----- From: Rina Nicole CRNP [...] she could be seen and evaluated sooner? Thanks, Rina documented in this encounter Plan of Treatment Upcoming Encounters Date Type Department Care Team (Late st Contact Info) Description 06/01/2023 10:00 AM EST Scheduled Telephone Ancillary [address] [place] [address] [place], Nurse Follow Up Phone Call Schedule [address] [place] [address] 07/23/2023 1:30 PM EST Office Visit Cardiology, [facility] 132 [facility] [place] [address] Rola Buchanan PA-C 132 [facility] [place] [address] 07/25/2023 10:20 AM EST Office Visit Podiatry [facility] 132 [facility] [place] [address] Viky Hughes, JENN [address] [place] [address] [place] [address] 08/13/2023 9:30 AM EST Imaging Vascular Lab, [facility] 2nd [facility], [address] [place] [address] 08/13/2023 10:30 AM EST Imaging Vascular Lab, [address] [place] [address] 08/15/2023 1:40 PM EST Office Visit Family Medicine [address] [place] [phone] Shonda Fields MD [address] [place] [address] [place] [address] 08/29/2023 2:30 PM EST Office Visit Vascular Surgery, [address] [place] [address] Zack Alcocer MD [address] [place] [address] 10/05/2023 10:00 AM EDT Nurse Only Ancillary [address] [place] [address] [place], Nurse Annual [address] [place] [address] 02/13/2024 9:30 AM EDT Cardiac Studies Cardiology, [address] [place] [address] [place], Pacer Clinic [address] [place] [address] Health Maintenance Due Date Last Done Comments [...] Screening 10/03/2023 10/02/2022 CKD HGB USE SMARTSET 60263 03/13/202403/13, 03/12/2023, 03/11/2023, Additional history exists CKD PHOS USE SMARTSET 24827 03/13/202403/02, 03/12/2023, 03/11/2023, Additional history exists DTaP,Tdap,and Td Vaccines (2 - Td or Tdap) 07/06/2024 07/06/2014, 09/13/2011 DXA Scan 01/18/2025 01/18/2023, 05/11/2020, 07/28/2013 Pneumococcal Vaccine: 65+ Years Completed 05/16/2017, 04/04/2013 VITAMIN D LEVEL ONCE IN A LIFETIME-USE SMARTSET# [id number] Completed 10/09/2022, 03/10/2022, 09/02/2021, Additional history exists [...] Documents on File Type Date Recorded 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 Advance Directives and Living Will 01/27/2023 Christiane Chong ADVANCE DIRECTIVE / LIVING WILL Power of Library Paraprofessional 01/27/2023 POWER OF A TTORNEY Latest Code [...] Care Agent (per Health Care Power of Library Paraprofessional document) [email or web address] Coral Chong Other - (no specific identity) First Alternate Health Care Agent (per Health Care Power of Library Paraprofessional document) che Care Teams Formula Clerk Relationship Specialty Start Date End Date Shonda Fields MD [address] [place] [address] [place] [address] PCP - General Family Medicine 02/21/19 documented as of this encounter
--- OUTSIDE RECORDS SUMMARY | 2023-10-25 20:43 | External Medical Summary | Summary of Care ---
Author Name Unknown Organization [facility] Address [address] [place] [address] Phone [phone] Care Team Providers Care Clinic Office Coordinator Name Role Phone Shonda Fields MD Primary Care Prov ider Encounter Details Date Type Department Care Team (Late st Contact Info) Description 01/09/2023 Population Health External Data Unspecified Department Allergies Active Allergy Reactions Criticality Noted Date [...] Active Diclofenac Sodium 1 % External Gel (Voltaren)Indications :Shoulder arthritis Apply topically to affected area daily. 100 g 1 03/14/2021 Active Vitamin D3 25 MCG Oral Tablet 5 Tablets. Pt taking every other day 0 06/16/2021 Active Nitroglycerin 0.4 MG Sublingual Tablet Sublingual (Nitrostat)Indication s:S/P coronary artery stent placement,Coronary artery disease of [place] artery of [place] heart with stable angina pectoris (HCC) Place under the tongue 1 Tablet every 5 minutes as needed for Pain, Chest. up to 3 doses in 15 minutes 150 Tablet 3 11/30/2021 Active Zoster Vac Recomb Adjuvanted 50 MCG/0.5ML Intramuscular Suspension Reconstituted (Shingrix)Indications :Need for shingles vaccine Inject 0.5 mL into a large muscle now and repeat dose in 60 to 180 days 1 Each 1 03/10/2022 Active Hydrocortisone 2.5 % External CreamIndications:Derm atitis Apply to affected area nightly as needed [...] Active amLODIPine Besylate 5 MG Oral Tablet (Norvasc)Indications: HTN, goal below 140/90 Take 1 Tablet by mouth in the morning. 30 Tablet 5 12/19/2022 Active Ondansetron 4 MG Oral Tablet Disintegrating (Zofran)Indications:V omiting and diarrhea Place 1 Tablet on tongue every 8 hours as needed for Nausea. dissolve on tongue. 30 Tablet 5 12/27/2022 Active documented as of this encounter (statuses [...] artery 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[place] heart with stable angina pectoris 03/18/2020 Obesity, [...] 09/13/2011 Dyslipidemia, goal LDL below 70 09/13/2011 travel pta current use of anticoagulant therapy 0 09/13/2011 [...] artery 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[place] heart with stable angina pectoris 11/04/2018 07/25/2022 [...] mRNA, LNP-s, No Pre serve, 2-Dose Series ([employer]) 05/31/2021,10/20/2020,09/22/2020 Covid-19, Mrna, Lnp-s, Pf, B ivalent, 30 Mcg, IM, 12 yrs and above ([employer]) 05/16/2022 Pneumococcal Conjugate Vacc, 13 Valent (Prevnar) [...] No 03/23/2020 documented as of this encounter Plan of Treatment Upcoming Encounters Date Type Department Care Team (Late st Contact Info) Description 06/01/2023 10:00 AM EST Scheduled Telephone Ancillary Que Prabhakar [address] [place] [address] [place] [address] [place], Nurse Follow Up Phone Call Schedule [address] [place] [address] 07/23/2023 1:30 PM EST Office Visit Cardiology, [address] [place] [address] Rola Buchanan, PA-C 132 [facility] [place] [address] 07/25/2023 10:20 AM EST Office Visit Podiatry [facility] 132 [facility] [place] [address] Viky Hughes, DPM [address] [place] [address] [place] [address] 08/13/2023 9:30 AM EST Imaging Vascular Lab, [facility] [address] [place] [address] 08/13/2023 10:30 AM EST Imaging Vascular Lab, [address] [address] 08/15/2023 1:40 PM EST Office Visit Family Medicine [address] [place] [phone] Shonda Fields MD [address] [place] [address] [place] [address] 08/29/2023 2:30 PM EST Office Visit Vascular Surgery, [address] [place] [address] Zack Alcocer MD [address] [place] [address] 10/05/2023 10:00 AM EDT Nurse Only Ancillary [address] [place] [address] [place], Nurse [address] [place] [address] 02/13/2024 9:30 AM EDT Cardiac Studies Cardiology, [facility] [address] [place] [address] [place], Pacer [facility] 132 [place] [address] Health Maintenance Due Date Last Done Comments [...] Screening 10/03/2023 10/02/2022 CKD HGB USE SMARTSET 96162 03/13/202403/13, 03/12/2023, 03/11/2023, Additional history exists CKD PHOS USE SMARTSET 03212 03/13/202403/02, 03/12/2023, 03/11/2023, Additional history exists DTaP,Tdap,and Td Vaccines (2 - Td or Tdap) 07/06/2024 07/06/2014, 09/13/2011 DXA Scan 01/18/2025 01/18/2023, 0511/2020, 07/28/2013 Pneumococcal Vaccine: 65+ Years Completed 05/16/2017, 04/04/2013 VITAMIN D LEVEL ONCE IN A LIFETIME-USE SMARTSET# [id number] Completed 10/09/2022, 03/10/2022, 09/02/2021, Additional history exists [...] Documents on File Type Date Recorded Patient Growth Hacker Expl anation Advance Directives and Living Will 01/27/2023 Christiane Chong ADVANCE DIRECTIVE / LIVING WILL Power of Dry Cleaning Supervisor 01/27/2023 POWER OF A TTORNEY Latest [...] Care Agent (per Health Care Power of Dry Cleaning Supervisor document) Coral Chong Other - (no specific identity) First Alternate Health Care Agent (per Health Care Power of Dry Cleaning Supervisor document) [email or web address] Care Teams Clinic Office Coordinator Relationship Specialty Start Date End Date Shonda Fields MD [address] [place] [address] [place] [phone] PCP - General Family Medicine 02/21/19 documented as of this encounter
--- OUTSIDE RECORDS SUMMARY | 2023-10-25 20:43 | External Medical Summary | Summary of Care ---
Author Name Unknown Organization [facility] Address [address] [place] [address] Phone [phone] Care Team Providers Care Logistics Associate Name Role Phone Shonda Fields MD Primary Care Prov ider Reason for Visit * Reason Onset Date Comments Med Request 03/21/2023 Encounter Details Date Type Department Care Team (Late st Contact Info) Description 03/21/[address] [phone] Shonda Fields MD [address] [place], [place] [address] [address] Med Request Allergies Active Allergy Reactions Criticality Noted Date [...] as of this encounter (statuses as of 06/20/2023) Medications Medication Sig Dispensed Refills Start Date [...] coronary artery stent placement,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 0 3 Active Magnesium Hydroxide 400 MG/5ML Oral Suspension Take by mouth 2 times a day as needed for Constipation. 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 For abdominal pain 120 Capsule 5 3 Active Simethicone 80 MG Oral Tablet ChewableIndications :Esophageal spasm CHEW 1-2 TABLETS FOUR TIMES DAILY NEEDED FOR BLOATING/GAS 100 Tablet 5 3 05/04/20 23 Discontinue d(Refill) Levothyroxine Sodium 50 MCG Oral Tablet (Levoxyl)Indication s:Acquired hypothyroidism Take by mouth 1 Tablet in the morning. (at least 30 min prior to breakfast or other meds). 90 Tablet 1 3 05/04/20 23 Discontinue d(Refill) Metoprolol Succinate ER 50 MG Oral Tablet Extended Release 24 Hour (toPROL XL) Take 1 Tablet by mouth in the morning and 1 Tablet before bedtime. 30 Tablet 0 3 04/20/20 23 Discontinue d(Refill) Apixaban 5 MG Oral Tablet (Eliquis) Take 1 Tablet by mouth in the morning and 1 Tablet before bedtime. 60 Tablet 5 3 04/20/20 23 Discontinue d(Refill) Sertraline HCl 100 MG Oral Tablet (Zoloft)Indications :Adjustment disorder with anxious mood Take 1 Tablet by mouth in the morning. 90 Tablet 1 3 05/04/20 Discontinue d(Refill) Omeprazole 40 MG Oral Capsule Delayed Release (PriLOSEC) Take 1 Capsule by mouth in the morning. Do not start before March 14, 2023. 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), R forehead BCC 01/2012, Ramon L forehead 01/2010 (Efudex) documented as of this encounter (statuses as of 06/20/2023) Resolved Problems Problem Noted Date Diagnosed Date [...] 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 11/04/2018 07/25/2022 Acute pain of right knee 11/30/2017 Hx of actinic keratosis 06/23/2015 06/0 07/2017 Irritable bowel syndrome 11/16/201208/2017 Abdominal pain 11/16/2012 08/04/2017 IBS (irritable bowel syndrome) 09/13/2011 02/21/2019 Anticoagulation management encounter 09/13/2011 11/04/2018 Dermatochalasis 06/22/2011 01/31/2018 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 0 12/23/2012 documented as of this encounter (statuses as of 06/20/2023) Immunizations Name Administration Dates Next Due COVID-19 mRNA, LNP-s, No Pre serve, 2-Dose Series ([employer] 05/31/2021,10/20/2020,09/22/2020 Covid-19, Mrna, Lnp-s, Pf, B [...] Telephone Encounter - Shonda Fields MD - 03/26/2023 2:48 PM EDT Sully has shared with me that her daughter has had addiction problems. So this message is a big red flag to me that her daughter may be seeking. This has happened before. I've put a Blue Sticky note about this concern. FYI to Shirley. * Telephone Encounter - Janki Simmons LPN - 03/23/2023 9:14 AM EDT Provider to address: PCP Reason for Call: Med Request Contact: Telephone Call Contact Type: Medication Outcome: Contacted Pt Contacted Sully about Pain Medication and I asked her Multiple times if she was having Pain in abd or site and she is denying pain at this time. I advised her I would sent msg to her PCP about painmedication , but she will most likely will not refill Oxycodone since not having pain. Denies Pain and Daughter Christiane was with Patient via speaker phone Total Time including non face to face (minutes): 5 * Telephone Encounter - Shirley Daniel PA-C - 03/22/2023 3:55 PM EDT According to pt yesterday, she wasn't having much incisional pain and she hasn't needed any oxycodone. Did this change? * Telephone Encounter - Sondra Solorio OSA - 03/21/2023 3:14 PM EDT Pts daughter called asking that a message be sent to the PCP office. Pts daughter states that they were at an appt earlier today but needed to check the med bottles at home before getting them prescribed. Pts daughter states that they do need the Oxycodone. Please advise. documented in this encounter Plan of Treatment Upcoming Encounters Date Type Department Care Team (Late st Contact Info) Description 07/25/2023 10:20 AM EST Office Visit Podiatry [address] [place] [address] Viky Hughes, JENN [address] [place] [address] 08/13/2023 9:30 AM EST Imaging Vascular Lab, [address] [place] [address] 08/13/2023 10:30 AM EST Imaging Vascular Lab, [address] [place] [address] 08/15/2023 1:40 PM EST Office Visit Family Medicine [address] [place] [address] Shonda Fields MD [address] [place] [address] [place] [address] 08/29/2023 2:30 PM EST Office Visit Vascular Surgery, [address] [place] [address] Zack Alcocer MD [address] [place] [address] 10/05/2023 10:00 AM EDT Nurse Only Ancillary [address] [place] [address] [place], Nurse [address] [place] [address] 12/25/2023 1:30 PM EDT Office Visit Cardiology, [facility] [address] [place] [address] Dulce Boudreaux CRNP [address] [place] [address] 02/13/2024 9:30 AM EDT Cardiac Studies Cardiology, [facility] [address] [place] [address] [place], Pacer Clinic [facility] [address] [place] [address] Health Maintenance Due Date Last Done Comments [...] Screening 10/03/2023 10/02/2022 CKD HGB USE SMARTSET 86240 03/13/202403/13, 03/12/2023, 03/11/2023, Additional history exists CKD PHOS USE SMARTSET 57686 03/13/202403/02, 03/12/2023, 03/11/2023, Additional history exists Albumin/Creatinine Ratio 05/14/2024 023, 06/27/2022, 09/02/2021, Additional history exists DTaP,Tdap,and Td Vaccines (2 - Td or Tdap) 07/06/2024 07/06/2014, 09/13/2011 DXA Scan 01/18/2025 01/18/2023, 05/0 11/2020, 07/28/2013 Pneumococcal Vaccine: 65+ Years Completed 05/16/2017, 04/04/2013 VITAMIN D LEVEL ONCE IN A LIFETIME-USE SMARTSET# [id number] Completed 10/09/2022, 03/10/2022, 09/02/2021, Additional history exists [...] Documents on File Type Date Recorded 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 Signaling Design Engineer 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 anation Advance Directives and Living Will 01/27/2023 Christiane Chong ADVANCE DIRECTIVE / LIVING WILL Power of Professor Of Theatre 01/27/2023 POWER OF A TTORNEY Latest Code [...] Care Agent (per Health Care Power of Professor Of Theatre document) [email or web address] Coral Chong Other - (no specific identity) First Alternate Health Care Agent (per Health Care Power of Professor Of Theatre document) [email or web address] Care Teams Logistics Associate Relationship Specialty Start Date End Date Shonda Fields MD [address] [place] [address] [place] [address] PCP - General Family Medicine 02/21/19 documented as of this encounter
--- OUTSIDE RECORDS SUMMARY | 2023-10-25 20:44 | External Medical Summary | Summary of Care ---
Author Name Unknown Organization [facility] Address [address] [place] [address] Phone [phone] Care Team Providers Care Brazing Machine Setter Name Role Phone Shonda Fields MD Primary Care Prov ider Encounter Details Date Type Department Care Team (Late st Contact Info) Description 05/04/2023 Result Scan Unspecified Department Roberta Redd, DO [address] [place], [place] [phone] <No scans attached> Allergies Active Allergy Reactions [...] as of this encounter (statuses as of 05/04/2023) Medications Medication Sig Dispensed Refills Start Date [...] coronary artery stent placement,Coronary artery disease of [place] artery of [place] heart with stable angina pectoris (HCC) Place [...] 24 Hour (Imdur)Indications: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), R forehead BCC 01/2012, Ramon L forehead 01/2010 (Efudex) documented as of this encounter (statuses as of 05/04/2023) Resolved Problems Problem Noted Date Diagnosed Date [...] artery 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[place] fork heart with stable angina pectoris 11/04/2018 07/25/2022 Acute pain of right knee 11/30/2017 Hx of actinic keratosis 06/23/2015 06/0 07/2017 Irritable bowel syndrome 11/16/201208/2017 Abdominal pain 11/16/2012 08/04/2017 IBS (irritable bowel syndrome) 09/13/2011 02/21/2019 Anticoagulation management encounter 09/13/2011 11/04/2018 Dermatochalasis 06/22/2011 01/31/2018 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 0 12/23/2012 documented as of this encounter (statuses as of 05/04/2023) Immunizations Name Administration Dates Next Due COVID-19 mRNA, LNP-s, No Pre serve, 2-Dose Series ([employer]) 05/31/2021,10/20/2020,09/22/2020 Covid-19, Mrna, Lnp-s, Pf, B ivalent, 30 Mcg, IM, 12 yrs and above ([employer]) 05/16/2022 Pneumococcal Conjugate Vacc, 13 Valent (Prevnar) [...] money to buy more. Never true 10/03/19 Within the past 12 months, t he [...] Care Team (Late st Contact Info) Description 05/07/2023 3:20 PM EST Telemedicine General Surgery, [place] [address] [place] [address] Trip Leggett MD [address] [place] [address] 05/08/2023 10:30 AM EST Office Visit Gastroenterology, [facility] [address] [place] [address] Rina Nicole CRNP [address] [place] [address] 06/01/2023 10:00 AM EST Scheduled Telephone Ancillary [address] [place] [address] [place], Nurse Follow Up Phone Call Schedule [address] [place] [address] 07/23/2023 1:30 PM EST Office Visit Cardiology, [facility] [address] [place] [address] Rola Buchanan PA-C [address] [place] [address] 07/25/2023 10:20 AM EST Office Visit Podiatry [facility] [address] [place] [address] Viky Hughes DPM [address] [place] [address] [place] [address] 08/13/2023 9:30 AM EST Imaging [facility] Lab, [facility] [address] [place] [address] 08/13/2023 10:30 AM EST Imaging Vascular Lab, [facility] 2nd [facility] 132 [facility] [place] [address] 08/15/2023 1:40 PM EST Office Visit Family Medicine [address] [place] [phone] Shonda Fields MD [address] [place] [address] [place] [address] 08/29/2023 2:30 PM EST Office Visit Vascular Surgery, [facility] 132 [facility] [place] [address] Zack Alcocer MD [address] [place] [address] 10/05/2023 10:00 AM EDT Nurse Only Ancillary [address] [place] [address] [place], Nurse Annual [address] [place] [address] 02/13/2024 9:30 AM EDT Cardiac Studies Cardiology, [facility] [address] [place] [address] [place], Pacer Clinic [facility] 132 [facility] [place] [address] Health Maintenance Due Date Last Done Comments [...] Screening 10/03/2023 10/02/2022 CKD HGB USE SMARTSET 47931 03/13/202403/13, 03/12/2023, 03/11/2023, Additional history exists CKD PHOS USE SMARTSET 03851 03/13/202403/02, 03/12/2023, 03/11/2023, Additional history exists DTaP,Tdap,and Td Vaccines (2 - Td or Tdap) 07/06/2024 07/06/2014, 09/13/2011 DXA Scan 01/18/2025 01/18/2023, 05/0 11/2020, 07/28/2013 Pneumococcal Vaccine: 65+ Years Completed 05/16/2017, 04/04/2013 VITAMIN D LEVEL ONCE IN A LIFETIME-USE SMARTSET# [id number] Completed 10/09/2022, 03/10/2022, 09/02/2021, Additional history exists [...] Date/Time Associated Diagnosis Comments CARDIOLOGY SCANNED RESULT 05/04/2023 documented in this encounter Results * CARDIOLOGY SCANNED RESULT (05/04/2023) 05/04/2023 Roberta Redd DO OTHER documented in this encounter Additional Health Concerns Infection Onset Date Last Indicated Resolved Time C. 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 Advance Directives and Living Will 01/27/2023 Christiane Chong ADVANCE DIRECTIVE / LIVING WILL Power of Nurse Sexual Assault 01/27/2023 POWER OF A TTORNEY Latest Code [...] Care Agent (per Health Care Power of Nurse Sexual Assault document) [email or web address] Coral Chong Other - (no specific identity) First Alternate Health Care Agent (per Health Care Power of Nurse Sexual Assault document) [email or web address] Care Teams Brazing Machine Setter Relationship Specialty Start Date End Date Shonda Fields MD [address] [place] [address] [place] [phone] PCP - General Family Medicine 02/21/19 documented as of this encounter
--- OUTSIDE RECORDS SUMMARY | 2023-10-25 20:44 | External Medical Summary | Summary of Care ---
Author Name Unknown Organization [facility] Address [address] [place] [address] Phone [phone] Care Team Providers Care Band Singer Name Role Phone Shonda Fields MD Primary Care Prov ider Reason for Referral * Precert (Within 10 days (routine)) - Authorized Specialty Diagnoses / Procedures Referred By Contac t Referred To Contact Radiology Diagnoses Post-operative state Procedures CT ABD/PELVIS WO IV/ORAL CONTRAST Trip Leggett MD [address] [place] [address] Referral ID Status Reason Start Date Expiration Date V isits Requested Visits Authorized [id number] Authorized 11/05/2023 999 999 Reason for Visit * Evaluate & Treat - Unlimited Visits (Within 10 days (routine)) - Authorized Specialty Diagnoses / Procedures Referred By Contac t Referred To Contact SURGICAL ONCOLOGY / Surgical Oncology Diagnoses Malignant neoplasm of other parts of pancreas (HCC) Magdaleno Wiley, DO [address] [place] [address] Referral ID Status Reason Start Date Expiration Date Visits Requested Visits Authorized [id number] Authorized Specialty Services Required 12/27/2022 999 999 Encounter Details Date Type Department Care Team (Late st Contact Info) Description 05/07/2023 3:20 PM EST [facility] [address] [place] [address] Trip Leggett MD [address] [place] [address] Post-operative state* Allergies Active Allergy Reactions Criticality Noted Date [...] as of this encounter (statuses as of 05/07/2023) Medications Medication Sig Dispensed Refills Start Date [...] coronary artery stent placement,Coronary artery disease of [place] artery of [place] heart with stable angina pectoris [...] 24 Hour (Imdur)Indications: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 [...] as of this encounter (statuses as of 05/07/2023) Active Problems Problem Noted Date Diagnosed Date [...] artery 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[place] heart with stable angina pectoris [...] as of this encounter (statuses as of 05/07/2023) Resolved Problems Problem Noted Date Diagnosed Date [...] artery 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[place] heart with stable angina pectoris [...] as of this encounter (statuses as of 05/07/2023) Immunizations Name Administration Dates Next Due COVID-19 mRNA, LNP-s, No Pre serve, 2-Dose Series ([facility]) 05/31/2021,10/20/2020,09/22/2020 Covid-19, Mrna, Lnp-s, Pf, B ivalent, 30 Mcg, IM, 12 yrs and above ([facility]) 05/16/2022 Pneumococcal Conjugate Vacc, 13 Valent (Prevnar) [...] as of this encounter Progress Notes * Trip Leggett MD - 05/07/2023 3:20 PM EST Images from the original note were not included. After connecting to the patient via telephone, the patient was identified by name and date of . Patient was then informed that this was a telephone call only visit. The patient agreed to participate. Visit Disposition: Routine follow-up Total call duration was 18 minutes. SURGERY ONCOLOGY CLINIC NOTE Milena Lozoya 05/03/2023 [id number] SUBJECTIVE: Milena Lozoya returns s/p Whipple on 03/07/23. Margins negative for cancer. Presents today for follow-up. Reports she still feels deconditioned and weak after surgery. Appetite is still not back tobaseline. She reports she has back pain and asked if oxycodone could help. Discussed that we are unable to provide a script for her back pain at this time and recommended she follow-up with PCP for further work-up / pain control. Having bowel function. No fevers. Patient has follow-up with Heme/Oncon 04/17/23 - she states she does not want to undergo chemotherapy at this time. INTERVAL NOTE: 05/07/2023: Doing well Back to her baseline at this point Labs: No pre-op CA 19-9 Pathology: OBJECTIVE: Telephone IMPRESSION: 1) Pancreatic cancer s/p Whipple PLAN: Incision healing well She is not interested in chemo Plan for [address]- will order Trip Leggett MD photographic developer and printer Section Head, Surgical Oncology and Endocrine Surgery [facility] [address] [place] [address] Office: [phone] [email or web address] documented in this encounter Plan of Treatment Upcoming Encounters Date Type Department Care Team (Late st Contact Info) Description 05/08/2023 10:30 AM EST [facility] [address] [place] [address] Rina Nicole CRNP [address] [place] [address] 06/01/2023 10:00 AM EST Scheduled Telephone Ancillary [facility] [address] [place] [address] [place], Nurse Follow Up Phone Call Schedule [address] [place] [address] 07/23/2023 1:30 PM EST [facility] [address] [place] [address] Rola Buchanan PA-C [address] [place] [address] 07/25/2023 10:20 AM EST Office Visit Podiatry [address] [place] [address] Viky Hughes, DPM [address] [place] [address] 08/13/2023 9:30 AM EST Imaging Vascular Lab, [facility] [address] [place] [address] 08/13/2023 10:30 AM EST Imaging Vascular Lab, [facility] [address] [place] [address] 08/15/2023 1:40 PM EST Office Visit Family Medicine [address] [place] [phone] Shonda Fields MD [address] [place] [place] [address] [place] [address] 08/29/2023 2:30 PM EST Office Visit Vascular Surgery, [address] [place] [address] Zack Alcocer MD [address] [place] [address] 10/05/2023 10:00 AM EDT Nurse Only Ancillary [address] [place] [address] Nurse [place] [address] [place] [address] 02/13/2024 9:30 AM EDT Cardiac Studies Cardiology, [address] [place] [address] [place] Pacer Clinic [facility] 132 [facility] [place] [address] Scheduled Orders Name Type Priority Associated Diagnoses Orde r Schedule CT ABD/PELVIS WO IV/ORAL CONTRAST Medical Imaging Routine Post-operative state Expected: 11/05/2023, Expires: 06/06/2024 Health Maintenance Due Date Last Done Comments [...] Screening 10/03/2023 10/02/2022 CKD HGB USE SMARTSET 96438 03/13/202403/13, 03/12/2023, 03/11/2023, Additional history exists CKD PHOS USE SMARTSET 12471 03/13/202403/02, 03/12/2023, 03/11/2023, Additional history exists DTaP,Tdap,and Td Vaccines (2 - Td or Tdap) 07/06/2024 07/06/2014, 09/13/2011 DXA Scan 01/18/2025 01/18/2023, 0511/2020, 07/28/2013 Pneumococcal Vaccine: 65+ Years Completed 05/16/2017, 04/04/2013 VITAMIN D LEVEL ONCE IN A LIFETIME-USE SMARTSET# [id number] Completed 10/09/2022, 03/10/2022, 09/02/2021, Additional history exists [...] as of this encounter Visit Diagnoses Diagnosis Post-operative state- Primary Other postprocedural status documented in this encounter Additional Health Concerns Infection Onset Date Last Indicated Resolved Time C. 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 Advance Directives and Living Will 01/27/2023 Christiane Chong ADVANCE DIRECTIVE / LIVING WILL Power of Plow Mechanic 01/27/2023 POWER OF A TTORNEY Latest [...] Care Agent (per Health Care Power of Plow Mechanic document) [email or web address] Other - (no specific identity) First Alternate Health Care Agent (per Health Care Power of Plow Mechanic document) [email or web address] Care Teams Band Singer Relationship Specialty Start Date End Date Shonda Fields MD [address] [place] [place] [address] [place] [address] PCP - General Family Medicine 02/21/19 documented as of this encounter
--- OUTSIDE RECORDS SUMMARY | 2023-10-25 20:44 | External Medical Summary | Summary of Care ---
Author Name Unknown Organization [facility] Address [address] [place] [address] Phone [phone] Care Team Providers Care Business Applications Analyst Name Role Phone Shonda Fields MD Primary Care Prov ider Reason for Visit * Reason Onset Date Comments Advice 04/30/2023 Encounter Details Date Type Department Care Team (Late st Contact Info) Description 04/30/2023 Telephone Gastroenterology, [facility] [address] [place] [address] Magdaleno Wiley DO [address] [place] [address] Advice Allergies Active Allergy Reactions Criticality Noted Date [...] as of this encounter (statuses as of 04/30/2023) Medications Medication Sig Dispensed Refills Start Date [...] g 1 03/14/2021 Active Additional Information Patient not taking.Reported on 04/17/2023 Vitamin D3 25 MCG Oral Tablet 5 Tablets. Pt taking every other day 0 06/16/2021 Active Nitroglycerin 0.4 MG Sublingual Tablet Sublingual (Nitrostat)Indicatio ns:S/P coronary artery stent placement,Coronary artery disease of [place] artery of [place] heart with stable angina pectoris (HCC) Place [...] with liquid. 90 Packet 1 07/13/2022 Active Simethicone 80 MG Oral Tablet ChewableIndications: Esophageal spasm CHEW 1-2 TABLETS FOUR TIMES DAILY NEEDED FOR BLOATING/GAS 100 Tablet 5 09/14/2022 Active Levothyroxine Sodium 50 MCG Oral Tablet (Levoxyl)Indications :Acquired hypothyroidism Take by mouth 1 Tablet in the morning. (at least 30 min prior to breakfast or other meds). 90 Tablet 1 09/19/2022 Active amLODIPine Besylate 5 MG Oral Tablet (Norvasc)Indications :HTN, goal below 140/90 Take 1 Tablet by mouth in the morning. 30 Tablet 5 12/19/2022 Active Ondansetron 4 MG Oral Tablet Disintegrating (Zofran)Indications: Vomiting and diarrhea Place 1 Tablet on tongue every 8 hours as needed for Nausea. dissolve on tongue. 30 Tablet 5 12/27/2022 Active Additional Information Patient not taking.Reported on 04/17/2023 Potassium Chloride Debi ER 20 MEQ Oral [...] as needed for Constipation. 0 01/24/2023 Active Sertraline HCl 100 MG Oral Tablet (Zoloft)Indications: Adjustment disorder with anxious mood Take 1 Tablet by mouth in the morning. 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), R forehead BCC 01/2012, Ramon L forehead 01/2010 (Efudex) documented as of this encounter (statuses as of 04/30/2023) Resolved Problems Problem Noted Date Diagnosed Date [...] artery 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[place] heart with stable angina pectoris 11/04/2018 07/25/2022 Acute pain of right knee 11/30/2017 Hx of actinic keratosis 06/23/2015 06/0 07/2017 Irritable bowel syndrome 11/16/201208/2017 Abdominal pain 11/16/2012 08/04/2017 IBS (irritable bowel syndrome) 09/13/2011 02/21/2019 Anticoagulation management encounter 09/13/2011 11/04/2018 Dermatochalasis 06/22/2011 01/31/2018 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 0 12/23/2012 documented as of this encounter (statuses as of 04/30/2023) Immunizations Name Administration Dates Next Due COVID-19 mRNA, LNP-s, No Pre serve, 2-Dose Series ([facility]) 05/31/2021,10/20/2020,09/22/2020 Covid-19, Mrna, Lnp-s, Pf, B ivalent, [...] encounter Miscellaneous Notes * Telephone Encounter - Esther Chin RN - 04/30/2023 9:23 AM EDT Separate message sent to Dr. Wiley asking if pathogen panel needed to be re- collected due to over filling. Will contact patient with both the message below and further direction. * Telephone Encounter - Magdaleno Wiley DO - 04/30/2023 9:03 AM EDT Please let the patient know that her stool study was positive for Clostridium difficile. I would recommend a 14 day course of vancomycin. documented in this encounter Plan of Treatment Upcoming Encounters Date Type Department Care Team (Late st Contact Info) Description 05/04/2023 2:00 PM EDT Office Visit [address] [place] [phone] Shonda Fields MD [address] [place] [address] [place] [address] 05/07/2023 3:20 PM EST Telemedicine General Surgery, [place] [address] [place] [address] Trip Leggett MD [address] [facility] [place] [address] 07/23/2023 1:30 PM EST Office Visit Cardiology, [address] [place] [address] Rola Buchanan PA-C 132 [facility] [place] [address] 07/25/2023 10:20 AM EST Office Visit Podiatry [facility] [address] [facility] [place] [address] Viky Hughes, DPM 400 [facility] [place] [address] 10/05/2023 10:00 AM EDT Nurse Only Ancillary [address] [place] [address] [place], Nurse [address] [place] [address] 02/13/2024 9:30 AM EDT Cardiac Studies Cardiology, [facility] [address] [facility] [place] [address] [place], Pacer Clinic [facility] [address] [facility] [place] [address] Health Maintenance Due Date Last Done Comments *BISPHONATE OR OTHER ACCEPTABLE MEDICATION NEEDED FOR OSTEOPOROSIS (REFER TO SMARTSET #1146) 11/25/2022 COVID-19 Vaccine ( season) 2023 05/16/2022, 05/31/2021, 10/20/2020, Additional history exists Influenza Vaccine (FLU shot) (#1) 2023 06/09/2022, 05/17/2021, 05/12/2021, Additional history exists Albumin/Creatinine Ratio 06/27/20232 022, 09/02/2021, 08/08/2019 TSH 06/27/2023 06/27/2022, 08/02, 06/03/2021, Additional history exists GFR 09/11/2023 03/13/2023, 03/02, 03/11/2023, Additional history exists Depression Screening 10/03/2023 10/02/2022 CKD HGB USE SMARTSET 85593 03/13/202403/13, 03/12/2023, 03/11/2023, Additional history exists CKD PHOS USE SMARTSET 57008 03/13/202403/02, 03/12/2023, 03/11/2023, Additional history exists DTaP,Tdap,and Td Vaccines (2 - Td or Tdap) 07/06/2024 07/06/2014, 09/13/2011 DXA Scan 01/18/2025 01/18/2023, 05/0 11/2020, 07/28/2013 Pneumococcal Vaccine: 65+ Years Completed 05/16/2017, 04/04/2013 VITAMIN D LEVEL ONCE IN A LIFETIME-USE SMARTSET# [id number] Completed 10/09/2022, 03/10/2022, 09/02/2021, Additional history exists [...] Infection Onset Date Last Indicated Resolved Time Gastrointestinal Rule-Out 04/27/2023 04/27/2023 C. 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 Advance Directives and Living Will 01/27/2023 Christiane Chong ADVANCE DIRECTIVE / LIVING WILL Power of Manager Linux 01/27/2023 POWER OF A TTORNEY Latest Code [...] Agent (per Health Care Power of Manager [employer] document) [email or web address] - (no specific identity) First Alternate Health Care Agent (per Health Care Power of Manager Linux document) [email or web address] Care Teams Business Applications Analyst Relationship Specialty Start Date End Date Shonda Fields MD [address] [place] [address] [place] [address] PCP - General Family Medicine 02/21/19 documented as of this encounter
--- OUTSIDE RECORDS SUMMARY | 2023-10-25 20:44 | External Medical Summary | Summary of Care ---
Author Name Unknown Organization [facility] Address [address] [place] [address] Phone [phone] Care Team Providers Care Convenience Store Clerk Name Role Phone Shonda Fields MD Primary Care Prov ider Reason for Visit * Reason Comments Follow Up Encounter Details Date Type Department Care Team (Late st Contact Info) Description 05/04/2023 2:00 PM EDT Office Visit Family Medicine [address] [phone] Shonda Fields MD [address] [place], [place] [address] [address] Paroxysmal atrial fibrillation (HCC)*; Acquired hypothyroidism; Esophageal spasm; Coronary artery disease of [place] artery of [place] heart with stable angina pectoris (HCC); Adenocarcinoma of pancreas (HCC); HTN, goal below 140/90; Adjustment disorder with anxious mood Allergies Active Allergy Reactions Criticality Noted Date [...] coronary artery stent placement,Coronary artery disease of [place] artery of [place] heart with stable angina pectoris (HCC) Place [...] 24 Hour (Imdur)Indications: Coronary artery disease of [place] artery of [place] heart with stable angina pectoris (HCC) TAKE [...] days. 56 Capsule 0 04/30/2023 3 Active Levothyroxine Sodium 50 MCG Oral Tablet [...] mouth in the morning. 0 05/04/2023 Active Simethicone 80 MG Oral Tablet ChewableIndications :Esophageal spasm CHEW 1-2 TABLETS FOUR TIMES DAILY NEEDED FOR BLOATING/GAS 100 Tablet 5 09/14/2022 3 Discontinue d(Refill) Levothyroxine Sodium 50 MCG Oral Tablet (Levoxyl)Indication s:Acquired hypothyroidism Take by mouth 1 Tablet in the morning. (at least 30 min prior to breakfast or other meds). 90 Tablet 1 09/19/2022 3 Discontinue d(Refill) Sertraline HCl 100 MG [...] artery 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[place] heart with stable angina pectoris 03/18/2020 Obesity, [...] 09/13/2011 Dyslipidemia, goal LDL below 70 09/13/2011 longterm current use of anticoagulant therapy 0 09/13/2011 [...] artery 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[place] heart with stable angina pectoris 11/04/2018 07/25/2022 [...] mRNA, LNP-s, No Pre serve, 2-Dose Series (Heatmaps) 05/31/2021,10/20/2020,09/22/2020 Covid-19, Mrna, Lnp-s, Pf, B ivalent, 30 Mcg, IM, 12 yrs and above (Heatmaps) 05/16/2022 Pneumococcal Conjugate Vacc, 13 Valent (Prevnar) [...] Sign Reading Time Taken Comments Blood Pressure 120/60 05/04/2023 2:16 PM EDT Pulse 75 05/04/2023 2:16 PM EDT Temperature 36.4 C (97.6 F) 05/04/2023 2:16 PM ED T Respiratory Rate - - Oxygen Saturation 97% 05/04/2023 2:16 PM EDT Inhaled Oxygen Concentration - - Weight 79.8 kg (176 lb) 05/04/2023 2:16 PM EDT Height - - Body Mass Index 27.57 04/06/2023 11:27 AM EDT documented in this [...] as of this encounter Progress Notes * Shonda Fields MD - 05/04/2023 2:29 PM EDT Matt Lozoya is a 82 year old female. Chief Complaint Patient presents with Follow Up HPI: Follow up recent dx pancreatic cancer, s/p whipple procedure. PMH: CAD, pacemaker, thyroid, GERD, h/o PE, h/o DVT, lipids, HTN, afib, osteoporosis. -Pancreatic cancer. Newly diagnosed pancreatic cancer, status post Whipple's procedure. Patient has1.9 cm tumor with negative margin for the invasive adenocarcinoma and focally positive for pancreatic intraepithelial neoplasm with high-grade dysplasia. Twenty-two lymph nodes were negative for metastatic disease. Patient has pT1c pN0 disease . To follow up with Dr Leggett next week. -ID. Recent Dx with Cdiff. Taking oral vanco to treat. Does admit light colored loose stools but not diarrhea. -Nutrition. Lost about 20 pounds with the pancreatic cancer. Appetite is decreased but she is eating. Has started to gain weight again. Anxiety. Describes some stress at home with daughter Christiane. Still primary caregiver for her . Christiane blaming her for c.diff infection. CVD/HTN/ afib. Has used nitro twice in the past month. Has episodes of palpitations/squeezing periodically assoc with left arm pain. Nitro does help. Prev: vaccines. States she already had the flu shot. 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 Z79.01 HTN, [...] anxious mood F43.22 Coronary artery disease of [place] artery of [place] heart with stable angina pectoris (HCC) I25.118 Hypertensive kidney disease with stage 3a chronic kidney disease I12.9, N18.31 Statin intolerance Z78.9 Esophageal spasm K22.4 High risk for fracture due to osteoporosis by DEXA scan M81.0 Chronic kidney disease, stage 3a ([facility]) N18.31 Greater trochanteric bursitis of left hip M70.62 Senile osteoporosis M81.0 Trigger middle finger of left hand M65.332 Caregiver burden Z63.6 Carotid stenosis, non-symptomatic, bilateral I65.23 Aortic ectasia, abdominal ([facility]) I77.811 Subclavian artery stenosis, right ([facility]) I77.1 Adenocarcinoma of pancreas ([facility]) C25.9 Post-op pain G89.18 Current Outpatient Medications Medication Sig Dispense Refill ASPIRIN EC 81 MG PO TBEC 1 TABLET DAILY Diclofenac Sodium 1 % External Gel (Voltaren) Apply topically to affected area daily. 100 g 1 Nitroglycerin 0.4 MG Sublingual Tablet Sublingual (Nitrostat) Place under the tongue 1 Tablet every5 minutes as needed for Pain, Chest. up to 3 doses in 15 minutes 150 Tablet 3 Zoster Vac Recomb Adjuvanted 50 MCG/0.5ML Intramuscular Suspension Reconstituted (Shingrix) Inject 0.5 mL into a large muscle now and repeat dose in 60 to 180 days 1 Each 1 Hydrocortisone 2.5 % External Cream Apply to [...] by mouth daily as needed for Constipation. Omeprazole 40 MG Oral Capsule Delayed Release (PriLOSEC) Take 1 Capsule by mouth in the morning. Donot start before March 14, 2023. 30 Capsule 2 Magnesium Hydroxide 400 MG/5ML Oral Suspension Take [...] 1 Tablet before bedtime. 180 Tablet 3 Metoprolol Succinate ER 50 MG Oral Tablet Extended Release 24 Hour (toPROL XL) Take 1 Tablet by mouth in the morning and 1 Tablet before bedtime. 180 Tablet 3 Vancomycin HCl 125 MG Oral Capsule (Vancocin) Take 1 Capsule by mouth in the morning and 1 Capsule at noon and 1 Capsule in the evening and 1 Capsule before bedtime. Do all this for 14 days. 56 Capsule 0 Levothyroxine Sodium 50 MCG Oral Tablet (Levoxyl) Take by mouth 1 Tablet in the morning. (at least 30 min prior to breakfast or other meds). 90 Tablet 1 Simethicone 80 MG Oral Tablet Chewable CHEW 1-2 TABLETS FOUR TIMES DAILY NEEDED FOR BLOATING/UQP358 Tablet 5 Sertraline HCl 100 MG Oral Tablet (Zoloft) Take 0.5 Tablets by mouth in the morning. acetaminophen (TYLENOL) 500 MG Tablet Take 2 Tablets by mouth every 8 hours as needed for Pain. Vitamin D3 25 MCG Oral Tablet 5 Tablets. Pt taking every other day No current facility-administered medications for this visit. [...] VOMITING,ACHY Zetia [Ezetimibe] Muscle pain Objective BP 120/60 | Pulse 75 | Temp 36.4 C (97.6 F) (Tympanic) | Wt 79.8 kg (176 lb) | SpO2 97% | BMI 27.57 kg/m | BSA 1.94 m Physical Exam Constitutional: Appearance: Normal appearance. Cardiovascular: Rate and Rhythm: Normal rate and regular rhythm. Pulses: Normal pulses. Heart sounds: Normal heart sounds. Pulmonary: Effort: Pulmonary effort is normal. Breath sounds: Normal breath sounds. Abdominal: General: Abdomen is flat. Bowel sounds are normal. Palpations: Abdomen is soft. Neurological: Mental Status: She is alert. ASSESSMENT/PLAN: Paroxysmal atrial fibrillation (HCC) (Primary) Acquired hypothyroidism - Levothyroxine Sodium 50 MCG Oral Tablet (Levoxyl); Take by mouth 1 Tablet in the morning. (at least 30 min prior to breakfast or other meds). Esophageal spasm - Simethicone 80 MG Oral Tablet Chewable; CHEW 1-2 TABLETS FOUR TIMES DAILY NEEDED FOR BLOATING/GAS Coronary artery disease of [place] artery of [place] heart with stable angina pectoris (HCC) Adenocarcinoma of pancreas (HCC) HTN, goal below 140/90 - ALBUMIN / CREATININE RATIO, URINE; Future; Expected date: 05/04/2023 Adjustment disorder with anxious mood Had her flu shot already this year Anxiety is up. She had stopped zoloft during the cancer treatment; just restarted it at 100mg last week. Having stomach cramps and headaches. Recommend cutting the dose to 50mg for a full month. She has had a great recovery from her recent Whipple. We discussed pros/cons of chemo but she is not sure if wants to proceed. Feels doubtful. Can call if changes her mind. Complete course of vanco and [facility] VLAD Chakraborty MD documented in this encounter Nursing Notes * Janki Simmons LPN - 05/04/2023 2:09 PM EDT Chief Complaint Patient presents with Follow Up Still having stomach pain after eating . She is making her self eat She has apt with rufino on 05/08/23 Dx with c diff and tx with Vanco She is starting to get more solid stools not as loose The patient has been properly identified by confirmation of name and date of . documented in this encounter Plan of Treatment Upcoming Encounters Date Type Department Care Team (Late st Contact Info) Description 05/07/2023 3:20 PM EST Telemedicine General Surgery, [facility] [address] [place] [address] Trip Leggett MD [address] [place] [address] 05/08/2023 10:30 AM EST Office Visit Gastroenterology, [facility] [address] [place] [address] Rina Nicole CRNP 132 [facility] [place] [address] 06/01/2023 10:00 AM EST Scheduled Telephone Ancillary [address] [place] [address] [place], Nurse Follow Up Phone Call Schedule [address] [place] [address] 07/23/2023 1:30 PM EST Office Visit Cardiology, [facility] [address] [place] [address] Rola Buchanan PA-C [address] [place] [address] 07/25/2023 10:20 AM EST Office Visit Podiatry [facility] [address] [place] [address] Viky Hughes DPM 400 [facility] [place] [address] 08/13/2023 9:30 AM EST Imaging Vascular Lab, [address] [address] 08/13/2023 10:30 AM EST Imaging Vascular Lab, [address] [place] [address] 08/15/2023 1:40 PM EST Office Visit Family Medicine [address] [place] [phone] Shonda Fields MD [address] [place] [address] [place] [address] 08/29/2023 2:30 PM EST Office Visit Vascular Surgery, [address] [place] [address] Zack Alcocer MD [address] [place] [address] 10/05/2023 10:00 AM EDT Nurse Only Ancillary [address] [place] [address] [place], Nurse [address] [place] [address] 02/13/2024 9:30 AM EDT Cardiac Studies Cardiology, [address] [place] [address] [place] [facility] [address] [place] [address] Scheduled Orders Name Type Priority Associated Diagnoses Orde r Schedule ALBUMIN / CREATININE RATIO, URINE Lab Routine HTN, goal below 140/90 Expected: 05/04/2023 (Approximate), Expires: 05/03/2024 Health Maintenance Due Date Last Done Comments [...] Screening 10/03/2023 10/02/2022 CKD HGB USE SMARTSET 53444 03/13/202403/13, 03/12/2023, 03/11/2023, Additional history exists CKD PHOS USE SMARTSET 88745 03/13/202403/02, 03/12/2023, 03/11/2023, Additional history exists DTaP,Tdap,and Td Vaccines (2 - Td or Tdap) 07/06/2024 07/06/2014, 09/13/2011 DXA Scan 01/18/2025 01/18/2023, 05/11/2020, 07/28/2013 Pneumococcal Vaccine: 65+ Years Completed 05/16/2017, 04/04/2013 VITAMIN D LEVEL ONCE IN A LIFETIME-USE SMARTSET# 82134 Completed 10/09/2022, 03/10/2022, 09/02/2021, Additional history exists [...] as of this encounter Visit Diagnoses Diagnosis Paroxysmal atrial fibrillation (HCC)- Primary Atrial fibrillation Acquired hypothyroidism Unspecified hypothyroidism Esophageal spasm 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 Advance Directives and Living Will 01/27/2023 Christiane Chong ADVANCE DIRECTIVE / LIVING WILL Power of School Commissioner 01/27/2023 POWER OF A TTORNEY Latest Code [...] File Name Relationship Healthcare Agent Relationship Communication Chritsiane Clark Adult Child Health Care Agent (per Health Care Power of School Commissioner document) [email or web address] Other - (no specific identity) First Alternate Health Care Agent (per Health Care Power of School Commissioner document) [email or web address] ([employer]) Care Teams Convenience Store Clerk Relationship Specialty Start Date End Date Shonda Fields MD [address] [place] [address] [place] [address] PCP - General Family Medicine 02/21/19 documented as of this encounter
--- OUTSIDE RECORDS SUMMARY | 2023-10-25 20:44 | External Medical Summary | Summary of Care ---
Author Name Unknown Organization [facility] Address [address] [place] [address] Phone [phone] Care Team Providers Care Lead Welder Name Role Phone Shonda Fields MD Primary Care Prov ider Reason for Visit * Reason Onset Date Comments Follow Up 05/08/2023 Encounter Details Date Type Department Care Team (Late st Contact Info) Description 05/08/2023 Telephone Care Coordination [address] [place] [address] [facility] Laser Beam Color Scanner Operator [address] [place] [address] [place] [address] Follow Up Allergies Active Allergy Reactions Criticality Noted Date [...] as of this encounter (statuses as of 05/08/2023) Medications Medication Sig Dispensed Refills Start Date [...] coronary artery stent placement,Coronary artery disease of [place] artery of [place] heart with stable angina pectoris (HCC) Place [...] 24 Hour (Imdur)Indications:C oronary artery disease of [place] artery of [place] heart with stable angina pectoris (HCC) TAKE [...] in the morning. 0 05/04/2023 Active Pancrelipase (Nvm-Fzun-Lcfr) 8610-2061 UNIT Oral Capsule Delayed Release Particles (Creon 3000) Take 3 Capsules by mouth in the morning and 3 Capsules at noon and 3 Capsules in the evening. Take with meals. 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), R forehead BCC 01/2012, Ramon L forehead 01/2010 (Efudex) documented as of this encounter (statuses as of 05/08/2023) Resolved Problems Problem Noted Date Diagnosed Date [...] artery 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[place] heart with stable angina pectoris 11/04/2018 07/25/2022 Acute pain of right knee 11/30/2017 Hx of actinic keratosis 06/23/2015 06/07/2017 Irritable bowel syndrome 11/16/201208/2017 Abdominal pain 11/16/2012 08/04/2017 IBS (irritable bowel syndrome) 09/13/2011 02/21/2019 Anticoagulation management encounter 09/13/2011 11/04/2018 Dermatochalasis 06/22/2011 01/31/2018 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 0 12/23/2012 documented as of this encounter (statuses as of 05/08/2023) Immunizations Name Administration Dates Next Due COVID-19 [...] encounter Miscellaneous Notes * Telephone Encounter - Marsha [facility] Laser Beam Color Scanner Operator - 05/08/2023 4:42 PM EST MARYCRUZ week #8 Patient reports she is doing well. No pain - saw GI today. Reports they gave her a supplement to help "form and darken" her stools. Unsure what the name is. Concerned insurance may not cover. Reports decreased appetite. Gained 3# last week - believes edema/leg swelling. Reports she had chest tightness and arm pain. - took two nitro tablets last week. States she is waiting on a sooner appointment with cardiology. documented in this encounter Plan of Treatment Upcoming Encounters Date Type Department Care Team (Late st Contact Info) Description 06/01/2023 10:00 AM EST Scheduled Telephone Ancillary [address] [place] [address] [place], Nurse Follow Up Phone Call Schedule [address] [place] [address] 07/23/2023 1:30 PM EST Office Visit Cardiology, [facility] [address] [place] [address] Rola Buchanan PA-C 132 [place] [address] 07/25/2023 10:20 AM EST Office Visit Podiatry [facility] [address] [place] [address] Viky Hughes, DPM 400 [facility] [place] [address] 08/13/2023 9:30 AM EST Imaging Vascular Lab, [address] [place] [address] 08/13/2023 10:30 AM EST Imaging Vascular Lab, [address] [place] [address] 08/15/2023 1:40 PM EST Office Visit Family Medicine [address] [place] [phone] Shonda Fields MD [address] [place] [address] [place] [address] 08/29/2023 2:30 PM EST Office Visit Vascular Surgery, [address] [place] [address] Zack Alcocer MD [address] [place] [address] 10/05/2023 10:00 AM EDT Nurse Only Ancillary [address] [place] [address] [place] Nurse [address] [place] [address] 02/13/2024 9:30 AM EDT Cardiac Studies Cardiology, [address] [place] [address] [facility] 132 [facility] [place] [address] Health Maintenance Due Date Last Done Comments [...] Screening 10/03/2023 10/02/2022 CKD HGB USE SMARTSET 22505 03/13/202403/13, 03/12/2023, 03/11/2023, Additional history exists CKD PHOS USE SMARTSET 74223 03/13/202403/02, 03/12/2023, 03/11/2023, Additional history exists DTaP,Tdap,and Td Vaccines (2 - Td or Tdap) 07/06/2024 07/06/2014, 09/13/2011 DXA Scan 01/18/2025 01/18/2023, 05/11/2020, 07/28/2013 Pneumococcal Vaccine: 65+ Years Completed 05/16/2017, 04/04/2013 VITAMIN D LEVEL ONCE IN A LIFETIME-USE SMARTSET# [id number] Completed 10/09/2022, 03/10/2022, 09/02/2021, Additional history exists [...] Documents on File Type Date Recorded 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 Advance Directives and Living Will 01/27/2023 Christiane Chong ADVANCE DIRECTIVE / LIVING WILL Power of Health Care Coach 01/27/2023 POWER OF A TTORNEY Latest [...] Care Agent (per Health Care Power of Health Care Coach document) [email or web address] Coral Chong Other - (no specific identity) First Alternate Health Care Agent (per Health Care Power of Health Care Coach document) [email or web address] Care Teams Lead Welder Relationship Specialty Start Date End Date Shonda Fields MD [address] [place] [address] [place] [phone] PCP - General Family Medicine 02/21/19 documented as of this encounter
--- OUTSIDE RECORDS SUMMARY | 2023-10-25 20:44 | External Medical Summary | Summary of Care ---
Author Name Unknown Organization [facility] Address [address] [place] [address] Phone [phone] Care Team Providers Care Installer Helper Name Role Phone Shonda Fields MD Primary Care Prov ider Reason for Visit * Reason Onset Date Comments Advice 04/30/2023 Encounter Details Date Type Department Care Team (Late st Contact Info) Description 04/30/2023 Telephone Gastroenterology, [facility] [address] [place] [address] Magdaleno Wiley DO [address] [place] [address] Advice Allergies Active Allergy Reactions Criticality Noted [...] coronary artery stent placement,Coronary artery disease of [place] artery of [place] heart with stable angina pectoris (HCC) Place [...] 24 Hour (Imdur)Indications:C oronary artery disease of [place] artery of [place] heart with stable angina pectoris (HCC) TAKE [...] artery 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[place] heart with stable angina pectoris 03/18/2020 Obesity, [...] 09/13/2011 Dyslipidemia, goal LDL below 70 09/13/2011 emt intermediate current use of anticoagulant therapy 0 [...] artery 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[place] heart with stable angina pectoris 11/04/2018 07/25/2022 [...] mRNA, LNP-s, No Pre serve, 2-Dose Series (HelpAround) 05/31/2021,10/20/2020,09/22/2020 Covid-19, Mrna, Lnp-s, Pf, B ivalent, [...] encounter Miscellaneous Notes * Telephone Encounter - Magdaleno Wiley DO - 04/30/2023 9:03 AM EDT Please let the patient know that her stool study was positive for Clostridium difficile. I would recommend a 14 day course of vancomycin. documented in this encounter Plan of Treatment Upcoming Encounters Date Type Department Care Team (Late st Contact Info) Description 05/04/2023 2:00 PM EDT Office Visit Family Medicine [address] [phone] Shonda Fields MD [address] [place] [address] [place] [address] 05/07/2023 3:20 PM EST [facility] [address] [place] [address] Trip Leggett MD [address] [place] [address] 07/23/2023 1:30 PM EST Office Visit Cardiology, [facility] 132 [facility] [place] [address] Rola Buchanan PA-C [facility] [place] [address] 07/25/2023 10:20 AM EST Office Visit Podiatry [facility] 132 [facility] [place] [address] Viky Hughes, DPM [address] [place] [address] 10/05/2023 10:00 AM EDT Nurse Only Ancillary [address] [place] [address] [place], Nurse [address] [place] [address] 02/13/2024 9:30 AM EDT Cardiac Studies Cardiology, [facility] 132 [facility] [place] [address] [place], Pacer [facility] 132 [facility] [place] [address] Health Maintenance Due Date Last Done Comments *BISPHONATE OR OTHER ACCEPTABLE MEDICATION NEEDED FOR OSTEOPOROSIS (REFER TO SMARTSET #1146) 11/25/2022 COVID-19 Vaccine ( season) 2023 05/16/2022, 05/31/2021, 10/20/2020, Additional history exists Influenza Vaccine (FLU shot) (#1) 2023 06/09/2022, 05/17/2021, 05/12/2021, Additional history exists Albumin/Creatinine Ratio 06/27/202306/27/2 022, 09/02/2021, 08/08/2019 TSH 06/27/2023 06/27/2022, 08/02, 06/03/2021, Additional history exists GFR 09/11/2023 03/13/2023, 03/02, 03/11/2023, Additional history exists Depression Screening 10/03/2023 10/02/2022 CKD HGB USE SMARTSET 23104 03/13/202403/13, 03/12/2023, 03/11/2023, Additional history exists CKD PHOS USE SMARTSET 93546 03/13/202403/02, 03/12/2023, 03/11/2023, Additional history exists DTaP,Tdap,and Td Vaccines (2 - Td or Tdap) 07/06/2024 07/06/2014, 09/13/2011 DXA Scan 01/18/2025 01/18/2023, 05/0 11/2020, 07/28/2013 Pneumococcal Vaccine: 65+ Years Completed 05/16/2017, 04/04/2013 VITAMIN D LEVEL ONCE IN A LIFETIME-USE SMARTSET# [id number] Completed 10/09/2022, 03/10/2022, 09/02/2021, Additional history exists [...] Documents on File Type Date Recorded 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 Advance Directives and Living Will 01/27/2023 Christiane Chong ADVANCE DIRECTIVE / LIVING WILL Power of Quill Machine Tender 01/27/2023 POWER OF A TTORNEY Latest Code [...] Care Agent (per Health Care Power of Quill Machine Tender document) [email or web address] Other - (no specific identity) First Alternate Health Care Agent (per Health Care Power of Quill Machine Tender document) [email or web address] Care Teams Installer Helper Relationship Specialty Start Date End Date Shonda Fields MD [address] [place] [address] [place] [phone] PCP - General Family Medicine 02/21/19 documented as of this encounter
--- OUTSIDE RECORDS SUMMARY | 2023-10-25 20:44 | External Medical Summary | Summary of Care ---
Author Name Unknown Organization [facility] Address [address] [place] [address] Phone [phone] Care Team Providers Care Undercoater Name Role Phone Shonda Fields MD Primary Care Prov ider Reason for Visit * Reason Onset Date Comments Advice 04/30/2023 Encounter Details Date Type Department Care Team (Late st Contact Info) Description 04/30/2023 Telephone Gastroenterology, [facility] [address] [place] [address] Magdaleno Wiley DO [address] [place] [address] Advice Allergies Active Allergy Reactions Criticality Noted [...] coronary artery stent placement,Coronary artery disease of [place] artery of [place] heart with stable angina pectoris (HCC) Place [...] 24 Hour (Imdur)Indications:C 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 Wiley, no stool pathogen panel repeat. I called and reviewed this information with the daughter who is a caregiver. * Telephone Encounter - Esther Chin RN [...] 05/04/2023 2:00 PM EDT Office Visit Family [address] [place] [phone] Shonda Fields MD [address] [place] [address] [place] [address] 05/07/2023 3:[address] [address] Trip Leggett MD [address] [place] [address] 07/23/2023 1:30 PM EST Office Visit Cardiology, [address] [place] [address] Rola Buchanan, PAJadenC 132 [facility] [place] [address] 07/25/2023 10:20 AM EST Office Visit Podiatry [facility] [address] [place] [address] Viky Hughes, DPMeghan [address] [place] [address] 10/05/2023 10:00 AM EDT Nurse Only Ancillary [address] [place] [address] Edel, Nurse [address] [place] [address] 02/13/2024 9:30 AM EDT Cardiac Studies Cardiology, [address] [place] [address] [place], [facility] [address] Health Maintenance Due Date Last Done Comments [...] Screening 10/03/2023 10/02/2022 CKD HGB USE SMARTSET 07260 03/13/202403/13, 03/12/2023, 03/11/2023, Additional history exists CKD PHOS USE SMARTSET 99344 03/13/202403/02, 03/12/2023, 03/11/2023, Additional history exists DTaP,Tdap,and Td Vaccines (2 - Td or Tdap) 07/06/2024 07/06/2014, 09/13/2011 DXA Scan 01/18/2025 01/18/2023, 05/11/2020, 07/28/2013 Pneumococcal Vaccine: 65+ Years Completed 05/16/2017, 04/04/2013 VITAMIN D LEVEL ONCE IN A LIFETIME-USE SMARTSET# [id number] Completed 10/09/2022, 03/10/2022, 09/02/2021, Additional history exists [...] Indicated Resolved Time Gastrointestinal Rule-Out 04/27/2023 04/27/2023 9:45 AM EDT C. difficile 04/27/2023 04/27/2023 documented as of this encounter Advance Directives Documents on File Type Date Recorded Patient Hide Salter Expl anation Advance Directives and Living Will 01/27/2023 Christiane Chong ADVANCE DIRECTIVE / LIVING WILL Power of Degreasing Solution Reclaimer 01/27/2023 POWER OF A TTORNEY Latest Code [...] Care Agent (per Health Care Power of Degreasing Solution Reclaimer document) Coral Chong Other - (no specific identity) First Alternate Health Care Agent (per Health Care Power of Degreasing Solution Reclaimer document) [email or web address] Care Teams Undercoater Relationship Specialty Start Date End Date Shonda Fields MD [address] [place] [address] [place] [address] PCP - General Family Medicine 02/21/19 documented as of this encounter
--- OUTSIDE RECORDS SUMMARY | 2023-10-25 20:44 | External Medical Summary | Summary of Care ---
Author Name Unknown Organization [facility] Address [address] [place] [address] Phone [phone] Care Team Providers Care Humidifier Maintenance Worker Name Role Phone Shonda Fields MD Primary Care Prov ider Reason for Visit * Reason Comments Follow Up Follow up after her whipple, in mar Encounter Details Date Type Department Care Team (Latest Contact Info) Description 05/08/2023 10:30 AM EST Office Visit Gastroenterology, [facility] [address] [place] [address] Rina Nicole CRNP [address] [place] [address] Adenocarcinoma of pancreas (HCC)*; Clostridium difficile infection Allergies Active Allergy Reactions Criticality Noted Date [...] coronary artery stent placement,Coronary artery disease of [place] artery of [place] heart with stable angina pectoris (HCC) Place [...] 24 Hour (Imdur)Indications: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 0 09/13/2011 [...] artery 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[place] heart with stable angina pectoris 11/04/2018 07/25/2022 [...] mRNA, LNP-s, No Pre serve, 2-Dose Series ([employer]) 05/31/2021,10/20/2020,09/22/2020 Covid-19, Mrna, Lnp-s, Pf, B ivalent, [...] Sign Reading Time Taken Comments Blood Pressure 124/76 05/08/2023 10:09 AM EST Pulse 84 05/08/2023 10:09 AM EST Temperature 36.4 C (97.6 F) 05/08/2023 10:[address] Respiratory Rate - - Oxygen Saturation - - Inhaled Oxygen Concentration - - Weight 80.1 kg (176 lb 9.6 oz) 05/08/2023 10:09 AM EST Height - - Body Mass Index 27.66 04/06/2023 11:27 AM EDT documented in this [...] as of this encounter Progress Notes * Rina Nicole CRNP - 05/08/2023 11:38 AM EST DATE OF SERVICE: 05/08/2023 REFERRING PHYSICIAN: Shonda Oseguera MD CC: F/U HPI: Milena Lozoya is a 82 year old female s/p [place] 03/[address] Leggett for pancreas adenocarcinoma. She has f/u with Oncology and is not interested in chemotherapy. Recovered well from surgical standpoint. She however was recently diagnosed 1 week ago with C diff. States that daughter that lives with her has had diarrhea symptoms for months and recently tested positive for this infection as well.. She is currently taking vancomycin 125 mg four times daily to complete 14 days course. She has about 3 bowel movements a day, stools are formed but then. Stools may be slimy and has seen oil residue (did not submit fecal fat study). She denies any nausea, vomiting. May have postprandial bloating and mild to moderate abdominal pain. She no longer needs to take oxycodone, states that using dicyclomine and simethicone helps with her symptoms. Aside from above, she mentioned to me that a couple weeks ago she has had intermittent palpitation,chest pressure which radiates down her left arm. Does not see cardiology until July. Vitals today stable. She is also asymptomatic currently. 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 CAD (coronary artery disease), [place] coronary artery 2006 Cardiac pacemaker in situ [...] 2008 S/P coronary artery stent placement 2005 Family History Problem Relation Age of Onset Stroke Mother Neurological Disorder Mother seizures Other (Other) Father in WWII No Past Hx Father trauma Past Surgical History: Procedure Laterality Date BX [...] present in the specimen CABG, ARTERIAL, THREE 2005 DEXA SCAN/BONE MINERAL AXIAL 01/18/2023 forearm T -5.6, Lumbar T -2.3, Femur T -3.2 high risk bisphonate recomended EGD, FLEXIBLE,W/ENDOSCOPIC US 12/07/2017 fatty liver, IPMN, gastritis / [facility] EGD, FLEXIBLE,W/ENDOSCOPIC US 05/07/2020 gastritis, fatty liver, mucinous pancreatic cyst / [facility] EGD, W/ENDOSCOPIC US 05/05/2013 UPPER GI ENDOSCOPY ENDOSCOPIC ULTRASOUND performed by Magdaleno Wiely DO at OR [facility] EGD, W/ENDOSCOPIC US 11/19/2013 fatty liver, dilation of CBD, cystic lesions of pancreatic head, body, and tail. repeat in 6 months/ESOPHAGOGASTRODUODENOSCOPY (EGD), FLEXIBLE, TRANSORAL, ENDOSCOPIC ULTRASOUND performed by Magdaleno Wiley DO at [facility] EGD, W/ENDOSCOPIC US N/A 10/07/2014 mucinous pancreatic cysts. repeat in 1 yr/ESOPHAGOGASTRODUODENOSCOPY (EGD), FLEXIBLE, TRANSORAL, ENDOSCOPIC ULTRASOUND performed by Magdaleno Wiley DO at OR [facility] EGD, W/ENDOSCOPIC US 12/10/2015 mucinous tumor of the pancreas, repeat 1 yr/[facility] EXPLORE PARATHYROID GLANDS N/A 03/23/2020 PARATHYROIDECTOMY performed by Tom Rabago DO at OR [facility] EYELID SURGERY PROCEDURE NEC 06/22/2011 Dermatochalasis both eyes upper lids, Dr. Tao KNEE ARTHROSCOPY, DIAGNOSTIC Knee Arthroscopy LAPAROSCOPY; CHOLECYSTECTOMY MISCELLANEOUS ORDER ([facility] ONLY) enterocele repair, ? bladder sling MISCELLANEOUS ORDER ([facility] ONLY) hemorrhoidectomy PARTIAL REMOVAL OF PANCREAS N/A 03/07/2023 PANCREATECTOMY DISTAL SUBTOTAL performed by Trip Leggett MD at OR [facility] REMOVAL OF APPENDIX age 9 or 10 REMOVE CATARACT, INSERT LENS PROSTH 2007 both eyes REMOVE TONSILS & ADENOIDS, UNDER 12 age 9 SHOULDER ARTHROSCOPY, DX Shoulder Arthroscope,Diagnostic TOTAL HYSTERECTOMY 1971 also BSO Social History Tobacco Use Smoking status: Never Smokeless tobacco: Never Vaping Use Vaping Use: Never used Substance Use Topics Alcohol use: No Drug use: No Review of patient's allergies indicates: Allergen Reactions [...] 1-2 TABLETS FOUR TIMES DAILY NEEDED FOR BLOATING/[id number] Tablet 5 Sertraline HCl 100 MG Oral Tablet (Zoloft) Take 0.5 Tablets by mouth in the morning. Pancrelipase (Exp-Guos-Ztpt) 2464-7513 UNIT Oral Capsule Delayed Release Particles (Creon 3000) Take 3 Capsules by mouth in the morning and 3 Capsules at noon and 3 Capsules in the evening. Take withmeals. 270 Capsule 5 No current facility-administered medications for this visit. REVIEW OF SYSTEMS: See HPI above; All other findings negative. EXAM: Filed Vitals: 05/08/23 1009 BP: 124/76 Pulse: 84 Temp: 36.4 C (97.6 F) Weight: 80.1 kg (176 lb 9.6 oz) GENERAL: Well developed and well nourished in no acute distress. SKIN: No rashes, ulcers, jaundice or spider angiomata. HEENT: Normocephalic, sclera clear. NECK: Supple, trachea midline, no JVD. LUNGS: Clear to auscultation bilaterally, no respiratory distress or accessory muscles used. HEART: Regular rate & rhythm, no murmurs and no gallops. ABDOMEN: Normal bowel sounds, soft and nontender. EXTREMITIES: No palmar erythema, no ankle edema, no skin discoloration, no clubbing, no cyanosis. NEURO: No lateralizing findings. Sensory/Motor grossly normal. ASSESSMENT AND PLAN: Milena Lozoya is a 82 year old female s/p [place] in 03/2023 for pancreas adenocarcinoma. Not interested in pursuing chemotherapy. Overall recovered well from surgery. Does have some fatty/oily stools. Is currently on Vancomycin for Cdiff infection - Start Creon 3 caps TID w meals - Bentyl and Simethicone prn cramping/bloating - CT abd/pelvis 6 months after her surgery to survey cancer recurrence - Complete Vancomycin 125mg QID 14 day course. I spent a total of 30 minutes on the date of service in review of patient's record, and previously obtained information in person and appropriate medical visit, discussion and education of plan, withpatient and/or caregiver, placing orders for tests/referral/procedures as medically necessary and documentation of pertinent clinical information in patient's medical records for their visit today. RETURN TO CLINIC: 6 months or sooner prn [facility] 05/08/2023 documented in this encounter Nursing Notes * Yamilka Espinosa LPN - 05/08/2023 10:11 AM EST Patient identified by name and date of . Chief Complaint Patient presents with Follow Up Follow up after her whipple, in mar Presents with , naun. Pt stating that he has dementia and if anyone needs anything to call her daughter. documented in this encounter Plan of Treatment Upcoming Encounters Date Type Department Care Team (Late st Contact Info) Description 06/01/2023 10:00 AM EST Scheduled Telephone Ancillary Janine Segal [address] [place] [address] Philipp, Nurse Follow Up Phone Call Schedule [address] [place] [address] 07/23/2023 1:30 PM EST Office Visit Cardiology, [facility] [address] [place] [address] Rola Buchanan PA-C [address] [place] [address] 07/25/2023 10:20 AM EST Office Visit Podiatry [address] [place] [address] Viky Hughes, DPM [address] [place] [address] 08/13/2023 9:30 AM EST Imaging Vascular Lab, [facility] [address] [place] [address] 08/13/2023 10:30 AM EST Imaging Vascular Lab, [facility] [address] [place] [address] 08/15/2023 1:40 PM EST Office Visit Family Medicine [address] [place] [phone] Shonda Fields MD [address] [place] [address] [place] [address] 08/29/2023 2:30 PM EST Office Visit Vascular Surgery, [address] [place] [address] Zack Alcocer MD [address] [place] [address] 10/05/2023 10:00 AM EDT Nurse Only Ancillary [address] [place] [address] [place], Nurse [address] [place] [address] 02/13/2024 9:30 AM EDT Cardiac Studies Cardiology, [address] [place] [address] [place] [facility] [address] [place] [address] Health Maintenance Due Date Last Done Comments [...] Screening 10/03/2023 10/02/2022 CKD HGB USE SMARTSET 35715 03/13/202403/13, 03/12/2023, 03/11/2023, Additional history exists CKD PHOS USE SMARTSET 76040 03/13/202403/02, 03/12/2023, 03/11/2023, Additional history exists DTaP,Tdap,and Td Vaccines (2 - Td or Tdap) 07/06/2024 07/06/2014, 09/13/2011 DXA Scan 01/18/2025 01/18/2023, 05/11/2020, 07/28/2013 Pneumococcal Vaccine: 65+ Years Completed 05/16/2017, 04/04/2013 VITAMIN D LEVEL ONCE IN A LIFETIME-USE SMARTSET# [id number] Completed 10/09/2022, 03/10/2022, 09/02/2021, Additional history exists [...] Primary Malignant neoplasm of pancreas, part unspecified Clostridium difficile infection Infection due to other anaerobes in conditions classified elsewhere and of unspecified site documented in this encounter Additional Health Concerns Infection Onset Date Last Indicated Resolved Time C. difficile 04/27/2023 04/27/2023 documented as of this encounter Advance Directives Documents on File Type Date Recorded Patient Windows Migration Technician Expl anation Advance Directives and Living Will 01/27/2023 Christiane Chong ADVANCE DIRECTIVE / LIVING WILL Power of Software Solutions Architect 01/27/2023 POWER OF A TTORNEY Latest Code [...] Care Agent (per Health Care Power of Software Solutions Architect document) [email or web address] Coral Chong Other - (no specific identity) First Alternate Health Care Agent (per Health Care Power of Software Solutions Architect document) [email or web address] Care Teams Humidifier Maintenance Worker Relationship Specialty Start Date End Date Shonda Fields MD [address] [place] [address] [place] [phone] PCP - General Family Medicine 02/21/19 documented as of this encounter
--- OUTSIDE RECORDS SUMMARY | 2023-10-25 20:44 | External Medical Summary | Summary of Care ---
Author Name Unknown Organization [facility] Address [address] [place] [address] Phone [phone] Care Team Providers Care Animal Eviscerator Name Role Phone Shonda Fields MD Primary Care Prov ider Reason for Visit * Reason Onset Date Comments case management 05/01/2023 [facility] Encounter Details Date Type Department Care Team (Latest Contact Info) Description 05/01/2023 Casualty Underwriter Telephone Care Coordination and Integration [address] [place], [place] [phone] Berna Kelly RN [address] [place], [place] [phone] case management ([facility]) Allergies Active Allergy Reactions Criticality Noted Date [...] as of this encounter (statuses as of 05/01/2023) Medications Medication Sig Dispensed Refills Start Date [...] coronary artery stent placement,Coronary artery disease of [place] artery of [place] heart with stable angina pectoris (HCC) Place [...] 24 Hour (Imdur)Indications: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) TAKE [...] as of this encounter (statuses as of 05/01/2023) Active Problems Problem Noted Date Diagnosed Date [...] artery 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[place] heart with stable angina pectoris 03/18/2020 Obesity, [...] 09/13/2011 Dyslipidemia, goal LDL below 70 09/13/2011 assisted current use of anticoagulant therapy 0 09/13/2011 Overview: ICD-10 update of inactive term Personal history of malignant neoplasm of skin 0 10/19/2010 Overview: 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), R forehead BCC 01/2012, Ramon L forehead 01/2010 (Efudex) documented as of this encounter (statuses as of 05/01/2023) Resolved Problems Problem Noted Date Diagnosed Date [...] artery 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[place] heart with stable angina pectoris 11/04/2018 07/25/2022 Acute pain of right knee 11/30/2017 Hx of actinic keratosis 06/23/2015 06/0 07/2017 Irritable bowel syndrome 11/16/201208/2017 Abdominal pain 11/16/2012 08/04/2017 IBS (irritable bowel syndrome) 09/13/2011 02/21/2019 Anticoagulation management encounter 09/13/2011 11/04/2018 Dermatochalasis 06/22/2011 01/31/2018 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 No answer. Left message requesting call back. [facility]. Follow-up Routine Attempted Phone Call First Attempt Call Outcome Left Voicemail/Message Plan Will await call back from patient documented in this encounter Plan of Treatment Upcoming Encounters Date Type Department Care Team (Late st Contact Info) Description 05/04/2023 2:00 PM EDT Office Visit Family Medicine [address] [phone] Shonda Fields MD [address] [place] [address] [place] [address] 05/07/2023 3:20 PM EST [facility] [address] [place] [address] Trip Leggett MD [address] [place] [address] 05/08/2023 10:30 AM EST [facility] [address] [place] [address] Rina Nicole CRNP [address] [place] [address] 07/23/2023 1:30 PM EST Office Visit Cardiology, [facility] 132 [facility] [place] [address] Rola Buchanan PA-C [address] [place] [address] 07/25/2023 10:20 AM EST Office Visit Podiatry [facility] [place] [address] Viky Hughes, DPM [facility] [address] 10/05/2023 10:00 AM EDT Nurse Only Ancillary [address] [place] [address] Edel, Nurse [address] [place] [address] 02/13/2024 9:30 AM EDT Cardiac Studies Cardiology, [facility] [place] [address] [facility] 132 [facility] [place] [address] Health Maintenance Due Date Last Done Comments [...] Screening 10/03/2023 10/02/2022 CKD HGB USE SMARTSET 73119 03/13/202403/13, 03/12/2023, 03/11/2023, Additional history exists CKD PHOS USE SMARTSET 27402 03/13/202403/02, 03/12/2023, 03/11/2023, Additional history exists DTaP,Tdap,and Td Vaccines (2 - Td or Tdap) 07/06/2024 07/06/2014, 09/13/2011 DXA Scan 01/18/2025 01/18/2023, 05/11/2020, 07/28/2013 Pneumococcal Vaccine: 65+ Years Completed 05/16/2017, 04/04/2013 VITAMIN D LEVEL ONCE IN A LIFETIME-USE SMARTSET# [id number] Completed 10/09/2022, 03/10/2022, 09/02/2021, Additional history exists [...] Documents on File Type Date Recorded Patient Mill Representative Expl anation Advance Directives and Living Will 01/27/2023 Christiane Chong ADVANCE DIRECTIVE / LIVING WILL Power of Building Construction Inspector 01/27/2023 POWER OF A TTORNEY Latest Code [...] Agent (per Health Care Power of Building Construction Inspector document) [email or web address] ([email or web address]) Coral Chong Other - (no specific identity) First Alternate Health Care Agent (per Health Care Power of Building Construction Inspector document) [email or web address] Care Teams Animal Eviscerator Relationship Specialty Start Date End Date Shonda Fields MD [address] [place] [address] [place] [address] PCP - General Family Medicine 02/21/19 documented as of this encounter
--- OUTSIDE RECORDS SUMMARY | 2023-10-25 20:44 | External Medical Summary | Summary of Care ---
Author Name Unknown Organization [facility] Address [address] [place] [address] Phone [phone] Care Team Providers Care Dining Services Manager Name Role Phone Shonda Fields MD Primary Care Prov ider Reason for Visit * Reason Onset Date Comments Appointment 04/25/2023 Dr. Henrique wilcox Encounter Details Date Type Department Care Team (Late st Contact Info) Description 04/25/[address] [phone] Shonda Fields MD [address] [place] [address] [place] [phone] Appointment (Dr. Henrique Wiley ) Allergies Active Allergy Reactions Criticality Noted Date [...] coronary artery stent placement,Coronary artery disease of [place] artery of [place] heart with stable angina pectoris (HCC) Place [...] 24 Hour (Imdur)Indications:C oronary artery disease of [place] artery of [place] heart with stable angina pectoris (HCC) TAKE [...] before bedtime. 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 I got her scheduled for: 05/08/23 10;15 am arrival for a10:30 am appt w/ Rina Nicole at . * Telephone Encounter - Glen Broussard OSA - 04/27/2023 12:52 PM EDT That is correct. Its just a follow up appt. You can offer February with jenny and put on wait listor see if any of the nurse practitioners have anything sooner if that's ok with the patient. * Telephone Encounter - Ml Peña OSA - 04/25/2023 3:09 PM EDT Milena needs an appt with Dr. Meghan Wiley in for a followup appt, I could not find any appts until Aug. documented in this encounter Plan of Treatment Upcoming Encounters Date Type Department Care Team (Late st Contact Info) Description 05/04/2023 2:00 PM EDT Office Visit Family Medicine [address] [place] [phone] Shonda Fields MD [address] [place] [address] [place] [address] 05/07/2023 3:20 PM EST Telemedicine General Surgery, [place] [address] [place] [address] Trip Leggett MD [address] [place] [address] 05/08/2023 10:30 AM EST Office Visit Gastroenterology, [facility] [address] [facility] [place] [phone] Rina Nicole CRNP [address] [facility] [place] [address] 07/23/2023 1:30 PM EST Office Visit Cardiology, [facility] [address] [facility] [place] [address] Rola Buchanan PA-C [address] [facility] [place] [address] 07/25/2023 10:20 AM EST Office Visit Podiatry [facility] [address] [facility] [place] [address] Viky Hughes, DPM [address] [place] [address] 10/05/2023 10:00 AM EDT Nurse Only Ancillary [address] [place] [address] [place], Nurse [address] [place] [address] 02/13/2024 9:30 AM EDT Cardiac Studies Cardiology, [facility] [address] [facility] [place] [address] [facility] [address] [facility] [place] [address] Health Maintenance Due Date Last Done Comments [...] Screening 10/03/2023 10/02/2022 CKD HGB USE SMARTSET 02962 03/13/202403/13, 03/12/2023, 03/11/2023, Additional history exists CKD PHOS USE SMARTSET 94501 03/13/202403/02, 03/12/2023, 03/11/2023, Additional history exists DTaP,Tdap,and Td Vaccines (2 - Td or Tdap) 07/06/2024 07/06/2014, 09/13/2011 DXA Scan 01/18/2025 01/18/2023, 05/11/2020, 07/28/2013 Pneumococcal Vaccine: 65+ Years Completed 05/16/2017, 04/04/2013 VITAMIN D LEVEL ONCE IN A LIFETIME-USE SMARTSET# [id number] Completed 10/09/2022, 03/10/2022, 09/02/2021, Additional history exists [...] Documents on File Type Date Recorded Patient Framework Developer Expl anation Advance Directives and Living Will 01/27/2023 Christiane Chong ADVANCE DIRECTIVE / LIVING WILL Power of Supervisor Maintenance 01/27/2023 POWER OF A TTORNEY Latest Code [...] Agent (per Health Care Power of Supervisor Maintenance document) [email or web address] ([email or web address]) Coral Chong Other - (no specific identity) First Alternate Health Care Agent (per Health Care Power of Supervisor Maintenance document) che Care Teams Dining Services Manager Relationship Specialty Start Date End Date Shonda Fields MD [address] [place] [address] [place] [address] PCP - General Family Medicine 02/21/19 documented as of this encounter
[2023-10-25] MEDS: CHOLESTYRAMINE LIGHT 4 GM PKT PO SCH (22:44)
[2023-10-26 06:58] LABS: Hemoglobin 11.2 g/dl (12.0-16.0); Mean Corpuscular Hemoglobin 28.5 pg (25.0-34.0); Mean Corpuscular Volume 89.1 fL (80.0-100.0); Mean Platelet Volume 11.7 fL (9.4-12.4); Platelet Count 123 K/uL (130-400); RDW Coefficient of Variation 13.9 % (11.5-14.5); RDW Standard Deviation 45.4 fL (36.4-46.3); Red Blood Count 3.93 M/uL (4.20-5.40); White Blood Count 6.45 K/ul (4.8-10.8)
[2023-10-26 07:18] LABS: BUN Creatinine Ratio 25.6 (10-20); Calcium 8.5 mg/dl (8.6-10.3); Creatinine Clr Calc Pharmacy 55.5 ml/min; Est GFR (African American) 76.2 ml/min; Est GFR (Non-African American) 65.7 ml/min; Magnesium 1.9 mg/dl (1.7-2.4); Phosphorus 2.6 mg/dl (2.5-4.9); Potassium 3.9 mmol/L (3.5-5.1)
[2023-10-26] MEDS: PANTOprazole 40 MG in SYRINGE 0 ML IV SCH (11:01)
--- NOTE | 2023-10-26 11:16 | Anesthesiology Consultation ---
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 consultant initiated History Surgery Operation Date: 10/26/23 12:45 Proposed Procedures p Right Femoral Neck System - Mir Cavazos MD Height/Weight Height: 5 ft 7 in Weight: 79.7 kg Allergies Allergy/AdvReac Type Severity Reaction Status Date / Time Iodinated Contrast Media Allergy Severe Hives, Verified 10/24/23 19:46 anaphylaxis ether Allergy Unknown Unknown Verified 10/24/23 19:46 prednisone AdvReac Severe GI pain > Verified 10/24/23 19:46 pancreatitis rosiglitazone AdvReac Severe Blood clots Verified 10/24/23 19:46 atorvastatin [From Lipitor] AdvReac Intermediate Muscle Pain Verified 10/24/23 19:46 ezetimibe [From Zetia] AdvReac Intermediate Muscle Pain Verified 10/24/23 19:46 lisinopril AdvReac Intermediate Cough Verified 10/24/23 19:46 losartan AdvReac Intermediate N/V Verified 10/24/23 19:46 ranitidine AdvReac Intermediate N/V, Verified 10/24/23 19:46 achiness rosuvastatin [From Crestor] AdvReac Intermediate Muscle Pain Verified 10/24/23 19:46 Medications Home Medications Medication Instructions Recorded Confirmed Last Taken aspirin 81 mg tablet,delayed 81 mg PO QPM 03/19/18 10/24/23 12/28/22 release levothyroxine 50 mcg tablet 50 mcg PO DAILYBB 03/19/18 10/24/23 12/29/22 nitroglycerin 0.4 mg sublingual 1 tab sublingual UD PRN Chest Pain 03/19/18 10/24/23 2 Days Ago tablet ~12/19/22 alprazolam 0.25 mg tablet (Xanax) 0.25 mg PO TID PRN Anxiety/INSOMNIA 06/18/20 10/24/23 Unknown cholecalciferol (vitamin D3) 50 2,000 unit PO QAM 06/18/20 10/24/23 12/28/22 mcg (2,000 unit) tablet (Vitamin D3) dicyclomine 10 mg capsule 10 mg PO QID PRN Indigestion 06/18/20 10/24/23 2 Days Ago ~12/19/22 acetaminophen 500 mg tablet 1,000 mg PO Q8H PRN knee pain 02/24/21 10/24/23 1 Week Ago (Tylenol Extra Strength) ~12/14/22 amlodipine 5 mg tablet 5 mg PO DAILY 12/21/22 10/24/23 12/28/22 cholestyramine (with sugar) 4 gram 1 ea PO Q OTHER DAY 12/21/22 10/24/23 10/23/23 powder for susp in a packet sertraline 100 mg tablet 100 mg PO DAILY 12/21/22 10/24/23 12/28/22 isosorbide mononitrate 60 mg 60 mg PO BID 01/22/23 10/24/23 Unknown tablet,extended release 24 hr apixaban 5 mg tablet (Eliquis) 5 mg PO BID 10/24/23 10/24/23 Unknown diclofenac sodium 1 % topical gel 2 g topical QID PRN Pain 10/24/23 10/24/23 Unknown qjbbdz-quwtafxn-gynpayk 3 cap PO TIDM 10/24/23 10/24/23 Unknown 3,000-9,500-15,000 unit capsule, delayed rel (Creon) metoprolol succinate 50 mg 75 mg PO BID 10/24/23 10/24/23 Unknown tablet,extended release 24 hr simethicone 80 mg chewable tablet 80 - 160 mg PO QID PRN 10/24/23 10/24/23 Unknown BLOATING/GAS DISCOMFORT Active Medications Generic Name Dose Route Start Last Admin Trade Name Freq PRN Reason Stop Dose Admin Amlodipine Besylate 5 mg 10/25/23 09:00 10/26/23 09:18 Amlodipine Besylate 5 Mg Tab PO 11/24/23 08:59 5 mg DAILY NICK Administration Lipase/Protease/Amylase 1 cap 10/25/23 08:00 10/26/23 09:17 Pancreaze (Lipase 10,500u) Cap PO 11/24/23 07:59 1 cap TIDM NICK Administration Aspirin 81 mg 10/24/23 23:27 10/25/23 20:22 Aspirin 81 Mg Ectab PO 11/23/23 23:26 81 mg QPM NICK Administration Cholestyramine Resin 4 gm 10/25/23 23:00 10/25/23 22:44 Cholestyramine Light 4 Gm Pkt PO 11/24/23 22:59 Not Given Q2D@2300 NICK Pantoprazole Sodium 40 mg/ 10 mls @ 5 mls/min 10/26/23 10:30 10/26/23 11:01 Syringe IV 11/25/23 10:29 5 mls/min DAILY@1100 NICK Administration Isosorbide Mononitrate 60 mg 10/24/23 23:27 10/26/23 09:17 Isosorbide Hendry Extended Rel 60 Mg Tabcr PO 11/23/23 23:26 60 mg BID NICK Administration Levothyroxine Sodium 50 mcg 10/25/23 06:30 10/26/23 06:03 Levothyroxine Sodium 50 Mcg Tablet PO 11/24/23 06:29 50 mcg DAILYBB NICK Administration Metoprolol Succinate 75 mg 10/24/23 23:27 10/26/23 09:17 Metoprolol Succ 25mg Ext Rel Tab PO 11/23/23 23:26 75 mg BID NICK Administration Morphine Sulfate 3 mg 10/24/23 23:27 10/25/23 08:20 Morphine Sulfate 4 Mg/Ml 1 Ml Carp\Vial IV 11/07/23 23:26 3 mg Q4H PRN Administration Severe Pain (Scale 7, 8, 9,10) Sertraline HCl 100 mg 10/25/23 09:00 10/26/23 09:17 Sertraline Hcl 100 Mg Tablet PO 11/24/23 08:59 100 mg DAILY NICK Administration Vitamin D 50 mcg 10/25/23 09:00 10/26/23 09:18 Cholecalciferol 25 Mcg (1000 Units) Tab PO 11/24/23 08:59 50 mcg QAM NICK Administration Past Medical History Medical History Paroxysmal atrial fibrillation Abdominal pain Carotid artery stenosis LICA/FITZ <50% stenosis, Right subclavian stenosis vs. occlusion with abnormal flow noted in vertebral artery per 08/2019 carotid duplex Chronic back pain Osteoarthritis Pacemaker 08/03 SSS, last pacer check 01/2020 IPMN (intraductal papillary mucinous neoplasm) HTN (hypertension) Dyslipidemia Pulmonary embolism remote years ago DVT (deep venous thrombosis) GERD (gastroesophageal reflux disease) Hypothyroidism CAD (coronary artery disease) CABG x5 in 2005 in [place] with BROWN to LAD, SVG to diagonal, SVG to OM, SVG to RPDA, and SVG to the distal RCA, PCI x3 Past Family History Family History Mother Stroke Past Surgical History Surgical History Pacemaker placement H/O parathyroidectomy H/O arthroscopy of shoulder H/O arthroscopy of knee Hx of hemorrhoidectomy S/P BSO (bilateral salpingo-oophorectomy) History of hysterectomy Hx of cholecystectomy S/P CABG x 3 CABG x5 in 2005 in [place] with BROWN to LAD, SVG to diagonal, SVG to OM, SVG to RPDA, and SVG to the distal RCA Hx of appendectomy Hx of adenoidectomy Hx of tonsillectomy Hx of cataract surgery Social History Smoking Status: Never smoker Do You Dip or Chew Tobacco: No Hx Alcohol Use: No Hx Substance Use: No substance use type: does not use Physical Exam Vital Signs Last Vital Signs Temp 97.3 F L 10/26/23 07:27 Pulse 60 10/26/23 10:20 Resp 16 10/26/23 07:27 BP 165/100 H 10/26/23 07:27 Pulse Ox 93 10/26/23 07:27 O2 Del Method Nasal Cannula 10/26/23 09:34 O2 Flow Rate 2 10/26/23 09:34 Testing Laboratory Results 10/26/23 06:12 10/26/23 06:12 PT 12.6 Seconds (9.0-12.0) H 10/24/23 17:48 INR 1.2 (0.9-1.1) H 10/24/23 17:48 APTT 30 Seconds (21-31) 10/24/23 17:48 Urine Color Dark Yellow 10/25/23 01:33 Urine Appearance Turbid (Clear) A 10/25/23 01:33 Urine pH 5.5 (4.5-7.5) 10/25/23 01:33 Ur Specific [place]ldon 1.026 (1.000-1.030) 10/25/23 01:33 Urine Protein 1+ (Negative) H 10/25/23 01:33 Urine Glucose (UA) Negative (Negative) 10/25/23 01:33 Urine Ketones Negative (Negative) 10/25/23 01:33 Urine Nitrite Negative (Negative) 10/25/23 01:33 Ur Leukocyte Esterase Negative (Negative) 10/25/23 01:33 Urine WBC (Auto) 0-5 /hpf (0-5) 10/25/23 01:33 Urine RBC (Auto) >20 /hpf (0-2) H 10/25/23 01:33 U Hyaline Cast (Auto) 3-5 /lpf (0-2) H 10/25/23 01:33 U Epithel Cells (Auto) 0-2 /hpf (0-2) 10/25/23 01:33 Urine Bacteria (Auto) None Seen (None Seen) 10/25/23 01:33 Electrocardiogram Date: 10/26/23 Atrial-paced rhythm, rate 60 bpm Incomplete left bundle block Nonspecific T wave abnormality Prolonged QT Abnormal ECG When compared with ECG of 25-OCT-2023 06:03, Incomplete left bundle block is now Present Nonspecific T wave abnormality, worse in Lateral leads Chest X-Ray Date: 10/24/23 FINDINGS: No pneumothorax. No pleural effusions. The heart remains mildly enlarged. No focal lung consolidations to suggest a pneumonia. No evidence for pulmonary edema. Calcifications within the aortic knob. Chronic deformity within the right humeral neck, unchanged. There is a left-sided dual-chamber pacemaker and poststernotomy changes. IMPRESSION: No acute process. Echocardiogram Date: 10/25/23 Mild concentric LVH Moderate size inferior and posterior wall motion abnormality with thinning, and hypokinesis to akinesis of the segments LV systolic function is normal LV EF 50-55% Mod MR Mild TR Doppler findings do not suggest pulmonary HTN
--- NOTE | 2023-10-26 12:45 | Cardiology Progress Note ---
Date of Service October 26, 2023 Assessment & Plan (1) Fall: (2) Nondisplaced fracture of styloid process of right ulna: (3) Subcapital fracture of right hip: (4) Elevated troponin I level: (5) Paroxysmal atrial fibrillation: (6) Tachy-bossman syndrome: (7) CAD (coronary artery disease): (8) Preop cardiovascular exam: Plan Assessment: 83 year old female admitted with a right hip fracture and non- displaced fracture of the styloid process of right ulna after sustaining a gr ound level mechanical fall. Cardiology asked to see this patient for mild elavation in troponins and for preoperative cardiac risk assessment. Plan: 1. Fall 2. Nondisplaced fracture of the styloid process of right ulna 3. Subcapital fracture of right hip -Ground level mechanical fall when patient lost her balance while prunning a [place]. -laid on the ground for less than one hour attempting to summon for help from the neighbors. -Subsequent imaging demonstrates fracture of the right hip which will need to undergo surgical intervention, seen by ortho today with plan for surgery tomorrow. -Right wrist fracture, immobilized and non-weight baring for a minimum of 6-8 weeks per review of ortho documentation. 4. Elevated Troponin 5. History of CAD -EKG at time of admission shows no acute ST-T wave changes. -Patient denies any chest pain, or anginal equivalent prior to, during or after the fall. -Mild elevation in troponin likely demand ischemia s/t to fall with time on ground and injury. -Continue Imdur, Toprol xl, Amlodipine, ASA 81mg as per current regimen. -Echocardiogram reviewed and demonstrates no changes from prior study 12/30/2022. Normal LVEF, moderate MR, mild TR, no suggestion of pulmonary HTN. She has a known prior moderate size inferior and posterior wall motion abnormality with thinning, and hypokinesis to akinesis to the segments. 6. Paroxysmal Atrial fibrillation 7. History of tachy-bossman syndrome s/p PPM -EKG demonstrates Atrial paced with underlying sinus rhythm, review of telemetry demonstrates the same. No acute events overnight. -Most recent device interrogation 08/12/23 demonstrates normal function, with a 0.3% AT/AF burden with longest episode 1.5 minutes. -Device: Regaalo [place] XT MRI -Continue Toprol xl 75mg BID -Telemetry today demonstrates Paced rhythm. no recurrence or notation of A- fib 8. Preoperative cardiac risk assessment: -patient is doing well from a cardiac standpoint. There is no suggestion of cardiac causes that precipitated her fall as it was mechanical in nature. -VS stable -EKG and Telemetry reviewed. -History of prior stress test as noted 12/2022 negative for inducible ischemia. -Most recent echo demonstrates normal LVEF -Per Gal Criteria, patient is placed at moderate risk for surgical intervention due to her cardiac history. She is optimized from a cardiac standpoint and no other testing or intervention would further lower or reduce that risk. -the incidence of mortality with an untreated hip fracture outweighs the risk and patient needs to have surgical repair. -patient is ok to proceed with surgical intervention as scheduled. -Recommend close monitoring on telemetry postoperatively. -Would continue current cardiac medications as noted above. -Cautious with intraoperative and post operative fluid resuscitation to avoid overload. Case has been discussed with Dr. Stephens. Further recommendations regarding plan of care as per his assessment. I spent a total of 30 minutes on the date of service in preparation, delivery, documentation of the care provided to the patient excluding any time spent in the performance of separately billed services. [facility] Cardiology [facility] Admission and Anticipated Discharge Date Admission Date: October 24, 2023 Supervising Physician Co-Signing Physician Notes Attending attestation: Case reviewed with the advanced practitioner. I have personally performed a history and physical examination on the patient. I have reviewed the advanced practitioner's documentation on the date of service referenced in note, and I agree with, and take responsibility for the plan of care. Patient assessed by the undersigned after surgery today at approximately 1900. Postoperative pain controlled. No cardiac complaints. Sinus rhythm with atrial pacing in the 60s noted on monitor. Patient notes that her bilateral lower extremities have been a little bit more swollen recently at home before her hospital stay compared to her recent bas desean. Knee-high SCDs in place. Patient is on amlodipine for a blood pressure and antianginal effect. Consider resuming Eliquis tomorrow if allowable from an orthopedic surgery standpoint. I spent a total of 20 minutes coordinating, documenting, and providing care for this patient excluding time spent in the performance of separately billed services or time spent by another provider. Victoriano Stephens, Subjective 10/26/23: patient seen and examined today in follow up. resting comfortably, offers no complaints. No chest pain, pressure, palpitations, no dyspnea, no edema, no pre-syncope or syncope. She is NPO in anticipation for surgery today for her Right hip fracture. labs, vitals, diagnostics, telemetry and documentation reviewed. Review of Systems Review of Systems: All systems reviewed & are unremarkable except as noted in HPI & below Physical Exam Constitutional: well developed and well nourished; no acute distress Neck: normal visual inspection and trachea midline Respiratory: normal respiratory effort, lungs clear to auscultation Cardiovascular: Rate/Rhythm: regular rate and regular rhythm Heart Sounds: normal S1, normal S2 and + murmur (+1/6 systolic ) Vessels: no JVD Ext remities: no edema Skin: no rashes, warm and dry Psychiatric: A+Ox3, euthymic affect Results & Data Vital Signs (Past 12 Hours) Vital Signs Temp Pulse Pulse Resp BP Pulse Ox O2 Del Method 10/26/23 11:33 36.8 C 60 18 167/86 H 93 Room Air 10/26/23 10:20 60 10/26/23 09:34 Nasal Cannula 10/26/23 07:27 36.3 C L 61 16 165/100 H 93 Nasal Cannula 10/26/23 02:18 36.6 C 73 18 155/89 H 95 Room Air O2 Flow Rate 10/26/23 11:33 10/26/23 10:20 10/26/23 09:34 2 10/26/23 07:27 2 10/26/23 02:18 Laboratory Results Cardiac Enzymes 10/25/23 Range/Units 17:05 Troponin I High Sens 18.5 H D (0-14) pg/ml CBC 10/26/23 Range/Units 06:12 WBC 6.45 (4.8-10.8) K/ul RBC 3.93 L (4.20-5.40) M/uL Hgb 11.2 L (12.0-16.0) g/dl Hct 35.0 L (37.0-47.0) % Plt Count 123 L (130-400) K/uL Comprehensive Metabolic Panel 10/26/23 Range/Units 06:12 Sodium 138 (136-145) mmol/L Potassium 3.9 (3.5-5.1) mmol/L Chloride 106 (98-107) mmol/L Carbon Dioxide 27 (21-32) mmol/L BUN 21 (6-23) mg/dl Creatinine 0.82 (0.6-1.2) mg/dl Glucose 124 H (70-99(Fasting)) mg/dl Calcium 8.5 L (8.6-10.3) mg/dl Intake and Output 10/25/23 10/26/23 10/26/23 22:59 06:59 14:59 Intake Total 650 / 1650 Output Total 150 / 700 350 / 700 Balance 500 / 950 -350 / 950 Intake: IV 400 / 1400 Magnesium Sulfate / D5w 1 gm In 100 / 100 100 ml @ 50 mls/hr IV ONE ONE Rx#:[id number] Sodium Chloride 0.9% 1,000 ml @ 300 / 1300 80 mls/hr IV .[id number] [facility] Rx#: [id number] Oral 250 / 250 Output: Urine Amount (Catheter) 150 / 700 350 / 700 Cano/Indwelling 150 / 700 350 / 700 Other: Weight 79.7 kg 79.7 kg Weight Measurement Method Built in [facility] Patient Weight 10/27/23 06:59 Weight 79.7 kg (1) Fall Encounter type: initial encounter Qualified Code(s): W19.XXXA - Unspecified fall, initial encounter (2) Nondisplaced fracture of styloid process of right ulna Encounter type: initial encounter Fracture type: closed Qualified Code(s): S52.614A - Nondisplaced fracture of right ulna styloid process, initial encounter for closed fracture (3) Subcapital fracture of right hip Encounter type: initial encounter Fracture type: closed Qualified Code(s): S72.011A - Unspecified intracapsular fracture of right femur, initial encounter for closed fracture (7) CAD (coronary artery disease) Associated angina: with unspecified angina Coronary Disease-Associated Artery/Lesion type: unspecified vessel or lesion type [place] vs. transplanted heart: [place] heart Qualified Code(s): I25.119 - Atherosclerotic heart disease of [place] coronary artery with unspecified angina pectoris
--- NOTE | 2023-10-26 12:59 | Electrocardiogram Report ---
Test Reason : Blood Pressure : / mmHG Vent. Rate : 060 BPM Atrial Rate : 060 BPM P-R Int : 204 ms QRS Dur : 110 ms QT Int : 470 ms P-R-T Axes : -11 063 120 degrees QTc Int : 470 ms Atrial-paced rhythm Incomplete left bundle block Nonspecific T wave abnormality Prolonged QT Abnormal ECG When compared with ECG of 25-OCT-2023 06:03, Incomplete left bundle block is now Present Nonspecific T wave abnormality, worse in Lateral leads Confirmed by Carlos Alberto Martini ([id number]) on 10/26/2023 12:58:51 PM Referred By: Shonda Chakraborty Confirmed By:Carlos Alberto Martini
[2023-10-26] MEDS ORDERED: ONDANSETRON INJ 2 MG/ML 2 ML VIAL IV PRN (13:01)
[2023-10-26] MEDS ORDERED: HYDROmorphone INJ 1 MG/ML SYRINGE IV PRN (13:01)
[2023-10-26] MEDS ORDERED: ePHEDrine sulfate 50 MG/ML AMP IV PRN (13:01)
[2023-10-26] MEDS ORDERED: ATROPINE SULFATE 0.1 MG/ML 10ML SYR IV PRN (13:01)
[2023-10-26] MEDS ORDERED: fentaNYL citrate PF 100 MCG/2 ML VIAL ONE (13:36)
[2023-10-26] MEDS ORDERED: PROPOFOL IV EMULSION 10 MG/ML 20 ML VIAL IV ONE (13:36)
--- NOTE | 2023-10-26 14:23 | Orthopedic Progress Note ---
Date of Service October 26, 2023 Assessment & Plan (1) Nondisplaced fracture of styloid process of right ulna: (2) Subcapital fracture of right hip: Plan 53-year-old female admitted with fall at home resulting in immediate pain and difficulty weightbearing. She ambulated with use of her walker for a brief period but had pain. She was brought to the emergency room and diagnosed with a right femoral neck fracture. She was seen and evaluated yesterday by our inpatient orthopedic physician child care center assistant director. The Diagnosis, prognosis and treatment options were explained thoroughly. I saw her today in the preoperative holding area. I explained the need for surgery and the alternatives which are minimal or bedrest. I showed her a picture of the device that was used to stabilize this and lieu of percutaneous screws. Reviewed the risks and benefits in detail. She wanted to proceed as we have described. Informed consent was documented today. Subjective Pain tolerable stationary. No other issues. Review of Systems All systems reviewed & are unremarkable except as noted in HPI & below. Physical Exam Right hip: The overlying skin is atraumatic and intact. DNVI Constitutional WD/WN, vitals as above no acute distress and not intoxicated appearing Respiratory normal respiratory effort; no labored breathing Cardiovascular Extremities: normal capillary refill Results & Data Results & Data Laboratory Results H & H 10/24/23 10/25/23 10/26/23 Range/Units 17:48 06:41 06:12 Hgb 14.0 11.4 L 11.2 L (12.0-16.0) g/dl Hct 42.6 35.1 L 35.0 L (37.0-47.0) % Coagulation 10/24/23 Range/Units 17:48 INR 1.2 H (0.9-1.1) Diagnostic Findings Right impacted femoral neck fracture PG Care Time/CCT Total # of Minutes Spent Total Time Spent with Patient: Total time spent is greater than 50% in coordination of care (as documented) at patient's floor/unit and/or counseling patient: Coding Level of Care Code 19865 SUB INP/OBS CARE 3/50MIN Diagnoses Closed nondisplaced fracture of styloid process of right ulna, initial encounter S52.614A Encounter type: initial encounter Fracture type: closed Subcapital fracture of right hip S72.011A Encounter type: initial encounter Fracture type: closed (1) Nondisplaced fracture of styloid process of right ulna Encounter type: initial encounter Fracture type: closed Qualified Code(s): S52.614A - Nondisplaced fracture of right ulna styloid process, initial encounter for closed fracture (2) Subcapital fracture of right hip Encounter type: initial encounter Fracture type: closed Qualified Code(s): S72.011A - Unspecified intracapsular fracture of right femur, initial encounter for closed fracture
[2023-10-26] MEDS: ceFAZolin 2000MG 2,000 MG/15 ML SYR IV ONE (14:35)
[2023-10-26] MEDS ORDERED: ROCURONIUM BROMIDE 10 MG/ML 5 ML VIAL IV ONE (14:58)
[2023-10-26] MEDS ORDERED: ONDANSETRON INJ 2 MG/ML 2 ML VIAL ONE (14:58)
[2023-10-26] MEDS ORDERED: LIDOCAINE 2% 2 ML VIAL/AMP(20MG/ML) INFIL ONE (14:58)
[2023-10-26] MEDS: ceFAZolin 2,000 MG/15 ML IV PUSH IV ONE (15:35)
--- NOTE | 2023-10-26 15:40 | Hospitalist Progress Note ---
Date of Service October 26, 2023 Assessment & Plan (1) Fall: Plan: 83-year-old female with past medical history significant for primary hyperparathyroidism, history of adrenal insufficiency, history of adenocarcinoma pancreas status post Whipple's procedure, hypothyroidism, hyperlipidemia, pancreatic cyst, history of pancreatitis, history of sinus node dysfunction status post pacemaker, history of CAD s/p cardiac stenting ,status post CABG, abdominal aortic ectasia, right subclavian artery stenosis, hypertension, paroxysmal atrial fibrillation, bilateral non symptomatic carotid stenosis, GERD, esophageal spasm, CKD stage III, osteoporosis, history of DVT and history of PE, statin intolerance, adjustment disorder who lives at home with her presents with fall and found to have right hip and right wrist fracture. Patient states that she took her dog and went outside and she was trimming her bushes when she fell on the right side ,hit her head but no loss of consciousness. Mechanical fall Nondisplaced distal right radius and ulnar styloid fractures Impacted right femoral neck fracture Pain control, Bowel regimen as needed. Last dose of eliquis 10/23 am per pt Orthopedics on board, wrist splint for right UE nondisplaced fracture. Patient to undergo closed reduction and internal fixation on 10/25 PT/OT Pain control Mild elevation of troponin, likely demand ischemia Denies any chest pains History of CAD status post stent and CABG serial enzymes and echo reviewed. Cardiology evaluated for preop clearance. Patient is estimated to have moderate risks of perioperative cardiac and noncardiac complication given her age and general fragility History of CAD status post stenting status post CABG: Continue aspirin Imdur, metoprolol succinate History of DVT and PE: Patient says blood clot was more than 2 years ago. Eliquis currently on hold; resume when okay with orthopedics. History of A-fib: Rate controlled with metoprolol succinate. Holding Eliquis for now Sick sinus syndrome: Status post pacemaker History of adenocarcinoma pancreas: Status post Whipple's procedure. Patient seems declined chemotherapy. Follows with hematology oncology Hypertension: On amlodipine and metoprolol succinate. Continue. Will monitor Adjustment disorder: On Zoloft, continue DVT prophylaxis: Holding Eliquis for any plan for procedures. Anticoagulation per orthopedics if procedure planned. Disposition: Med/telemetry Full code Please note the above document was generated using voice recognition software. It may contain grammatical, syntax or spelling errors. Any formal questions or concerns about the content, text or information contained within the body of this dictation should be directly addressed to the provider for clarification Admission and Anticipated Discharge Date Admission Date: October 24, 2023 Subjective Patient seen and examined at bedside She is comfortable lying on the bed; not in distress. She reports her reflux after getting her meds No significant overnight events Review of Systems Review of Systems: All systems reviewed & are unremarkable except as noted in Subjective Physical Exam Physical Exam: General- Not in distress Lungs- clear to auscultation no wheezing or crackles. Heart- regular rhythm; no murmur, no gallop. Abdomen- normal bowel sounds, soft, nontender, no distension. Extremities- no pretibial edema, no erythema seen. Right lower extremity slightly shortened. RUE in wrist splint. Distal NV status wnl Rt extremities. Neuro- alert, oriented x 3; PERRL, no facial palsy; no dysarthria; obeys simple commands Results & Data Results & Data Vital Signs (Past 12 Hours) Vital Signs Temp Pulse Pulse Resp BP Pulse Ox O2 Del Method 10/26/23 12:43 36.9 C 72 20 212/126 H 96 Nasal Cannula 10/26/23 11:33 36.8 C 60 18 167/86 H 93 Room Air 10/26/23 10:20 60 10/26/23 09:34 Nasal Cannula 10/26/23 07:27 36.3 C L 61 16 165/100 H 93 Nasal Cannula O2 Flow Rate 10/26/23 12:43 2 10/26/23 11:33 10/26/23 10:20 10/26/23 09:34 2 10/26/23 07:27 2 (1) Fall Encounter type: initial encounter Qualified Code(s): W19.XXXA - Unspecified fall, initial encounter
[2023-10-26] MEDS: BUPIVACAINE/EPINEPHRINE 0.25% 1:200,000 30 ML VIAL ONE (16:05)
[2023-10-26] MEDS ORDERED: PHENYLEPHRINE 100MCG/ML 10ML SYR IV ONE (16:07)
[2023-10-26] MEDS ORDERED: SUGAMMADEX SODIUM 200 MG/2 ML VIAL IV ONE (16:08)
--- NOTE | 2023-10-26 16:42 | Operative Report ---
PG Post Operative Report Pre & Post Diagnosis Operation Date: 10/26/23 12:45 Pre-Op Diagnosis: Impacted femoral neck fracture of right hip Post-Op Diagnosis: Impacted femoral neck fracture of right hip I identified the patient and participated in the time-out.: Yes Procedure Operation Date: 10/26/23 12:45 Actual Procedures p Right Femoral Neck internal fixation with Synthes femoral neck system (Right) - Mir Cavazos MD Surgeon Mir Cavazos MD Ignition Specialist None Estimated Blood Loss 100 Findings See Below All Synthes implants: Femoral neck system plate 1 hole; 5 mm titanium locking screw self-tapping 42 millimeters; bolt for femoral neck system 85 millimeters; antirotation screw for femoral neck system 85 millimeters Specimens none Anesthesia Type General Complications none Disposition Accompanied Patient To Recovery: No Disposition: Recovery Room Indications 83-year-old female admitted after fall from home with an impacted right femoral neck fracture. I recommended surgical stabilization with percutaneous fixation or the femoral neck system. I reviewed the risk, benefits, and alternatives, as outlined in the preoperative notes. Informed consent was obtained in the preoperative holding area as she desired to proceed. Description of Procedure On the day of surgery should be was greeted in the preoperative holding area and the informed consent was reviewed and confirmed. The surgical site was then identified by the patient and signed by myself. Spinal anesthetic was performed by anesthesia. It had good effect. The patient was taken to the operating placed by the OR table and anesthesia was induced. The patient is then positioned on the fracture table. All lashay prominences were well padded. The operative foot was placed in the fracture boot with abundant padding. The well leg was secured. We then positioned the lower extremities in a scissor fashion with a non-op leg flexed down to allow visualization with fluoroscopy which was confirmed before we prepped and draped. Surgical timeout was called and verified by all present. Antibiotics were infused, and equipment was available and functional. The procedure was initiated with a closed reduction maneuvers. [Fluoroscopy was used to ensure appropriate alignment. Gentle abduction and inline traction was induced with the fracture table. Given the valgusimpacted fracture pattern, the fracture appeared to be stable and in acceptable alignment. Fluoroscopy was used to line up x-rays and position of the hip for fixation. The leg was then prepped and draped in usual sterile fashion. Surgical timeout was reconfirmed. We initiated the surgical internal fixation portion with finding the start point on the lateral cortex of the femur. Fluoroscopic guidance was used and a small poke hole was established. The start point was confirmed on fluoroscopy in AP and lateral planes and the pin was advanced using the 130 degree guide. An incision was made about the pin to allow access for the instruments and plate. The pin was directed toward the center position of the femoral head. Fluoroscopy was used on multiple planes to confirm adequate positioning. The length of our central bolt was then taken off that central pin under fluoroscopy. The reamer device was set to match the length of the central bolt. The reamer was then advanced under fluoroscopic guidance until it engaged the lateral trochanter. The bolt and plate construct matching our measured length was constructed on the back table and loaded onto the guide. The guide was then used to introduce the bolt and plate construct over the central guidewire. The bullet appeared short, so we opted to replace it for a 5 mm longer bolt. This construct was removed. We redrilled to 85 mm of depth. The 85 mm bolt was then loaded onto the plate on the guide. The plate and bolt were then placed over the guidewire and tapped into place under fluoroscopic guidance. The cannula for the locking screw on the plate was placed. This was drilled under fluoroscopic guidance and measured using the drill pin. The locking screw was then selected and introduced. The torque limiting screwdriver was used for final tightening. This locked our plate to the femur. The antirotation screw drill was then set for the appropriate length and it was drilled via the guide and checked under fluoroscopy. Positioning and length was acceptable in multiple fluoroscopic planes. The appropriate length of the antirotation screw was selected and loaded and placed, using the torque limiting screwdriver for final tightening. This completed the fixation of the fracture. Fluoroscopy was used in both AP and lateral planes to evaluate the entirety of the fracture and implant. Reduction and implant positions were acceptable. The wounds were then thoroughly irrigated with bulb syringe and normal saline. The deep fascial layer was approximated with #1 Vicryl suture. The dermal layer was approximated using 2-0 Vicryl suture. The final skin closure was completed with tray. Wounds were dressed with sterile Xeroform, sterile gauze, ABD, and Tegaderm. The patient tolerated procedure well, awoke from anesthesia without complication, was extubated in the operating room, and transferred to the recovery area in stable condition. Disposition: The patient will be weightbearing as tolerated. I recommended routine DVT prophylaxis consisting aspirin therapy. DVT prophylaxis should last 6 weeks. 24 hours of antibiotic prophylaxis should be continued. Physician judicial assistant attestation: Carine Green PA-C was present and scrubbed for the duration of the case. She was essential to prepping/draping, patient positioning, retraction, and assistance with wound closure. I attest to the content of the Intraoperative Record and any orders documented therein. Any exceptions are noted below.
[2023-10-26] MEDS: fentaNYL citrate PF 100 MCG/2 ML VIAL IV PRN (16:59)
--- NOTE | 2023-10-26 17:09 | XRay Report ---
XR hip RT min 2V HISTORY: 83 years-old Female Post-Operative implant position COMPARISON: 10/24/2023 TECHNIQUE: 2 views of the right hip FINDINGS: ORIF of the acute right femoral neck fracture with satisfactory alignment. Lateral skin tray swell ing and deep tissue air. [id number] right hip osteoarthritis. IMPRESSION: ORIF of the acute right femoral neck fracture demonstrating satisfactory alignment. ACT 112: Negative or not required by law. The above report was generated using voice recognition software. It may contain grammatical, syntax o r spelling errors. Electronically signed by: Axel Matthews M.D. 10/26/2023 5:06 PM
--- NOTE | 2023-10-26 17:12 | Anesthesiology Progress Note ---
Date of Service October 26, 2023 Anesthesia Post Procedure Vital Signs Vital Signs: Temp Pulse Pulse Pulse Resp BP BP 10/26/23 17:05 60 13 159/84 H 10/26/23 16:55 36.5 C 60 15 171/86 H 10/26/23 16:45 60 15 172/92 H 10/26/23 16:35 60 17 169/94 H 10/26/23 16:28 36 C L 64 16 181/96 H 10/26/23 12:43 36.9 C 72 20 212/126 H 10/26/23 11:33 36.8 C 60 18 167/86 H 10/26/23 10:20 60 10/26/23 09:34 10/26/23 07:27 36.3 C L 61 16 165/100 H 10/26/23 02:18 36.6 C 73 18 155/89 H 10/25/23 22:23 36.8 C 66 20 150/87 H 10/25/23 21:51 62 10/25/23 20:21 60 10/25/23 19:45 36.9 C 59 L 18 132/98 Pulse Ox O2 Del Method O2 Flow Rate 10/26/23 17:05 92 Nasal Cannula 2 10/26/23 16:55 94 Nasal Cannula 2 10/26/23 16:45 96 Oxymask 2 10/26/23 16:35 98 Oxymask 13 10/26/23 16:28 93 Oxymask 13 10/26/23 12:43 96 Nasal Cannula 2 10/26/23 11:33 93 Room Air 10/26/23 10:20 10/26/23 09:34 Nasal Cannula 2 10/26/23 07:27 93 Nasal Cannula 2 10/26/23 02:18 95 Room Air 10/25/23 22:23 90 Room Air 10/25/23 21:51 10/25/23 20:21 10/25/23 19:45 92 Nasal Cannula 2.0 Pain Intensity Right Hip: Pain Intensity: 5 Transfer of Care Handoff Completed per policy Notes Mental Status: alert / awake / arousable Patient Amnestic to Procedure: Yes Nausea / Vomiting: adequately controlled Pain: adequately controlled Airway Patency, RR, SpO2: stable & adequate BP & HR: stable & adequate Hydration State: stable & adequate Anesthetic Complications: no major complications apparent and Pt Satisfied with anesthetic care
--- NOTE | 2023-10-26 17:27 | Fluoroscopy Report ---
FL femur RT 1V CLINICAL HISTORY: RIGHT FEMORAL NECK SYSTEM COMPARISON STUDY: Right hip radiographs October 24, 2023. Fluoroscopy time: 84.2 seconds. Ka, r: 21.05 mGy. Number of fluoroscopic images: 5. FINDINGS: Fluoroscopy was provided during internal fixation of the right femoral neck fracture. Fract ure alignment appears anatomic. Hardware is intact. There are no unexpected radiopaque foreign bodies . IMPRESSION: Fluoroscopy provided during internal fixation of the right femoral neck fracture. ACT 112: Negative or not required by law. Electronically signed by: Jefferson Mahoney M.D. 10/26/2023 5:26 PM
[2023-10-26] MEDS: MoRPHine SULFATE 4 MG/ML 1 ML CARP\\VIAL IV PRN (18:40)
[2023-10-26] MEDS: ceFAZolin 2000MG 2,000 MG/15 ML SYR IV SCH (21:08)
[2023-10-27] MEDS: oxyCODONE HCL IR 5 MG TAB (IMMEDIATE RELEASE) PO PRN (00:58)
[2023-10-27 06:24] LABS: Basophils # (auto) 0.03 K/uL (0.00-0.20); Basophils % (auto) 0.5 %; Eosinophils # (auto) 0.26 K/uL (0.00-0.50); Hematocrit (blood only) 34.4 % (37.0-47.0); Immature Granulocytes # (auto) 0.03 K/uL (0.01-0.20); Immature Granulocytes % (auto) 0.5 %; Lymphocytes # (auto) 1.22 K/uL (1.20-3.40); Lymphocytes % (auto) 18.9 %; Mean Corpuscular Hemoglobin 28.5 pg (25.0-34.0); Mean Corpuscular Volume 89.1 fL (80.0-100.0); Mean Platelet Volume 11.6 fL (9.4-12.4); Monocytes # (auto) 0.69 K/uL (0.11-0.59); Monocytes % (auto) 10.7 %; Neutrophils # (auto) 4.21 K/uL (1.40-6.50); Neutrophils % (auto) 65.4 %; Platelet Count 121 K/uL (130-400); RDW Coefficient of Variation 13.4 % (11.5-14.5); RDW Standard Deviation 43.8 fL (36.4-46.3); Red Blood Count 3.86 M/uL (4.20-5.40); White Blood Count 6.44 K/ul (4.8-10.8)
[2023-10-27 06:56] LABS: BUN Creatinine Ratio 24.7 (10-20); Calcium 8.4 mg/dl (8.6-10.3); Creatinine Clr Calc Pharmacy 63.4 ml/min; Est GFR (African American) 87.7 ml/min; Est GFR (Non-African American) 75.6 ml/min; Potassium 3.7 mmol/L (3.5-5.1)
--- NOTE | 2023-10-27 08:16 | Orthopedic Progress Note ---
Date of Service October 27, 2023 Assessment & Plan (1) History of hip surgery: (2) Subcapital fracture of right hip: Plan POD 1 status post right hip internal fixation of an impacted femoral neck fracture. Making uncomplicated progress. -Continue 24-hour perioperative antibiotic prophylaxis -Pain managed per primary team -PT/OT consults: Weightbearing as tolerated to the right hip -VTE prophylaxis: Per primary team. May continue aspirin Dispo: Per primary team. PT/OT evaluations today for discharge needs. Subjective She reports pain is tolerable and she still. She has more pain when she is moving, as expected. No issues. Tolerating a diet. Review of Systems All systems reviewed & are unremarkable except as noted in HPI & below. Physical Exam RLE: The hip incision is clean and dry and intact. DNVI. Thigh compartments soft. Constitutional WD/WN, vitals as above no acute distress and not intoxicated appearing Respiratory normal respiratory effort; no labored breathing Cardiovascular Extremities: normal capillary refill Results & Data Results & Data Laboratory Results H & H 10/24/23 10/25/23 10/26/23 Range/Units 17:48 06:41 06:12 Hgb 14.0 11.4 L 11.2 L (12.0-16.0) g/dl Hct 42.6 35.1 L 35.0 L (37.0-47.0) % 10/27/23 Range/Units 05:56 Hgb 11.0 L (12.0-16.0) g/dl Hct 34.4 L (37.0-47.0) % Coagulation 10/24/23 Range/Units 17:48 INR 1.2 H (0.9-1.1) Diagnostic Findings Postoperative x-ray shows adequate alignment and stabilization of the impacted femoral neck fracture with a femoral neck system implant PG Care Time/CCT Total # of Minutes Spent Total Time Spent with Patient: Total time spent is greater than 50% in coordination of care (as documented) at patient's floor/unit and/or counseling patient: Coding Level of Care Code 88280 Post Operative Follow-Up Diagnoses History of hip surgery Z98.890 Subcapital fracture of right hip S72.011A Encounter type: initial encounter Fracture type: closed (2) Subcapital fracture of right hip Encounter type: initial encounter Fracture type: closed Qualified Code(s): S72.011A - Unspecified intracapsular fracture of right femur, initial encounter for closed fracture
--- NOTE | 2023-10-27 11:57 | Hospitalist Progress Note ---
Date of Service October 27, 2023 Assessment & Plan (1) Fall: Plan: 83-year-old female with past medical history significant for primary hyperparathyroidism, history of adrenal insufficiency, history of adenocarcinoma pancreas status post Whipple's procedure, hypothyroidism, hyperlipidemia, pancreatic cyst, history of pancreatitis, history of sinus node dysfunction status post pacemaker, history of CAD s/p cardiac stenting ,status post CABG, abdominal aortic ectasia, right subclavian artery stenosis, hypertension, paroxysmal atrial fibrillation, bilateral non symptomatic carotid stenosis, GERD, esophageal spasm, CKD stage III, osteoporosis, history of DVT and history of PE, statin intolerance, adjustment disorder who lives at home with her presents with fall and found to have right hip and right wrist fracture. Patient states that she took her dog and went outside and she was trimming her bushes when she fell on the right side ,hit her head but no loss of consciousness. Mechanical fall Nondisplaced distal right radius and ulnar styloid fractures Impacted right femoral neck fracture Status post right femoral neck closed reduction and internal fixation on 10/25 Displaced right radius/ulnar fracture managed conservatively PT/OT; remove Cano after patient is out of the bed Pain control Bowel regimen with milk of mag and MiraLAX Eliquis resumed after confirmation with orthopedics. Mild elevation of troponin, likely demand ischemia Denies any chest pains History of CAD status post stent and CABG serial enzymes and echo reviewed. Cardiology evaluated for preop clearance. Patient is estimated to have moderate risks of perioperative cardiac and noncardiac complication given her age and general fragility History of CAD status post stenting status post CABG: Continue aspirin Imdur, metoprolol succinate History of DVT and PE: Patient says blood clot was more than 2 years ago. Eliquis resumed History of A-fib: Rate controlled with metoprolol succinate. On Eliquis Sick sinus syndrome: Status post pacemaker History of adenocarcinoma pancreas: Status post Whipple's procedure. Patient seems declined chemotherapy. Follows with hematology oncology Hypertension: On amlodipine and metoprolol succinate. Continue. Will monitor Adjustment disorder: On Zoloft, continue DVT prophylaxis: Eliquis Disposition: Med/telemetry Full code Please note the above document was generated using voice recognition software. It may contain grammatical, syntax or spelling errors. Any formal questions or concerns about the content, text or information contained within the body of this dictation should be directly addressed to the provider for clarification Admission and Anticipated Discharge Date Admission Date: October 24, 2023 Subjective Patient seen and examined at bedside. She is comfortably lying in the bed; not in distress. She reports that the pain is well-controlled Review of Systems Review of Systems: All systems reviewed & are unremarkable except as noted in Subjective Physical Exam Physical Exam: General- Not in distress Lungs- clear to auscultation no wheezing or crackles. Heart- regular rhythm; no murmur, no gallop. Abdomen- normal bowel sounds, soft, nontender, no distension. Extremities- no pretibial edema, no erythema seen. Bandages over left hip clean dry and intact. Neuro- alert, oriented x 3; PERRL, no facial palsy; no dysarthria; obeys simple commands Results & Data Results & Data Vital Signs (Past 12 Hours) Vital Signs Temp Pulse Pulse Resp BP BP Pulse Ox 10/27/23 11:50 36.9 C 59 L 18 151/77 H 95 10/27/23 10:54 62 10/27/23 07:38 60 18 158/80 H 97 10/27/23 03:54 36.6 C 64 16 144/72 H 95 O2 Del Method O2 Flow Rate 10/27/23 11:50 Nasal Cannula 2 10/27/23 10:54 10/27/23 07:38 Nasal Cannula 2 10/27/23 03:54 Nasal Cannula 2 (1) Fall Encounter type: initial encounter Qualified Code(s): W19.XXXA - Unspecified fall, initial encounter
[2023-10-27] MEDS: POLYETHYLENE (MIRALAX) 17 GM PACK PO SCH (12:58)
[2023-10-27] MEDS: MAGNESIUM HYDROXIDE SUSP 30 ML UDC PO ONE (12:58)
[2023-10-27] MEDS: APIXABAN 5 MG TABLET PO SCH (12:58)
--- NOTE | 2023-10-28 08:35 | Orthopedic Progress Note ---
Date of Service October 28, 2023 Assessment & Plan (1) History of hip surgery: (2) Subcapital fracture of right hip: Plan POD 2 status post right hip internal fixation of an impacted femoral neck fracture. Making excellent progress. -Completed perioperative antibiotics. -Pain managed per primary team -PT/OT consults: Weightbearing as tolerated to the right hip. Continue to mobilize today. -VTE prophylaxis: Per primary team. May continue aspirin Dispo: Per primary team and therapy recommendations. Orthopedic discharge instructions placed. She should follow-up with me in 2-3 weeks for repeat standing x-rays and staple removal. Will continue to follow peripherally. Do not expect additional inpatient orthopedic needs. Please contact me by [place] text for any questions. She asked about driving to her postop appointment. I recommended recovery for several weeks to restore her blood counts, let pain improved, and be able to comfortably perform stairs before any attempts at driving. Subjective Pain is tolerable but has significant pain with the first few steps. She says her hip pain does get better with further steps. No issues with diet. Review of Systems All systems reviewed & are unremarkable except as noted in HPI & below. Physical Exam RLE: The hip dressing is clean and dry and intact. Positive DF/PF/EHL. Good knee range of motion. Thigh compartments soft. No significant pain on logroll. Constitutional WD/WN, vitals as above no acute distress and not intoxicated appearing Respiratory normal respiratory effort; no labored breathing Cardiovascular Extremities: normal capillary refill Results & Data Results & Data Laboratory Results Laboratory Tests 10/24/23 10/26/23 10/27/23 17:48 06:12 05:56 Hct 42.6 35.0 L 34.4 L Diagnostic Findings . PG Care Time/CCT Total # of Minutes Spent Total Time Spent with Patient: Total time spent is greater than 50% in coordination of care (as documented) at patient's floor/unit and/or counseling patient: Coding Level of Care Code 97391 Post Operative Follow-Up Diagnoses History of hip surgery Z98.890 Subcapital fracture of right hip S72.011A Encounter type: initial encounter Fracture type: closed (2) Subcapital fracture of right hip Encounter type: initial encounter Fracture type: closed Qualified Code(s): S72.011A - Unspecified intracapsular fracture of right femur, initial encounter for closed fracture
--- NOTE | 2023-10-28 10:52 | Hospitalist Progress Note ---
Date of Service October 28, 2023 Assessment & Plan (1) Fall: Plan: 83-year-old female with past medical history significant for primary hyperparathyroidism, history of adrenal insufficiency, history of adenocarcinoma pancreas status post Whipple's procedure, hypothyroidism, hyperlipidemia, pancreatic cyst, history of pancreatitis, history of sinus node dysfunction status post pacemaker, history of CAD s/p cardiac stenting ,status post CABG, abdominal aortic ectasia, right subclavian artery stenosis, hypertension, paroxysmal atrial fibrillation, bilateral non symptomatic carotid stenosis, GERD, esophageal spasm, CKD stage III, osteoporosis, history of DVT and history of PE, statin intolerance, adjustment disorder who lives at home with her presents with fall and found to have right hip and right wrist fracture. Patient states that she took her dog and went outside and she was trimming her bushes when she fell on the right side ,hit her head but no loss of consciousness. Mechanical fall Nondisplaced distal right radius and ulnar styloid fractures Impacted right femoral neck fracture Status post right femoral neck closed reduction and internal fixation on 10/25 Displaced right radius/ulnar fracture managed conservatively Continue PT OT. Recommend rehab. Pain control Bowel regimen with milk of mag and MiraLAX On Eliquis for DVT prophylaxis Mild elevation of troponin, likely demand ischemia Denies any chest pains History of CAD status post stent and CABG serial enzymes and echo reviewed. Cardiology evaluated for preop clearance. Patient is estimated to have moderate risks of perioperative cardiac and noncardiac complication given her age and general fragility History of CAD status post stenting status post CABG: Continue aspirin Imdur, metoprolol succinate History of DVT and PE: Patient says blood clot was more than 2 years ago. Eliquis resumed History of A-fib: Rate controlled with metoprolol succinate. On Eliquis Sick sinus syndrome: Status post pacemaker History of adenocarcinoma pancreas: Status post Whipple's procedure. Patient seems declined chemotherapy. Follows with hematology oncology Hypertension: On amlodipine and metoprolol succinate. Continue. Will monitor Adjustment disorder: On Zoloft, continue DVT prophylaxis: Eliquis Disposition: Med/telemetry. PT OT recommends rehab. Appreciate case management assistance for placement. Full code Please note the above document was generated using voice recognition software. It may contain grammatical, syntax or spelling errors. Any formal questions or concerns about the content, text or information contained within the body of this dictation should be directly addressed to the provider for clarification Admission and Anticipated Discharge Date Admission Date: October 24, 2023 Subjective Patient seen and examined at bedside. She is comfortably lying in the bed; reported that she was able to get out of the bed with the help of the PT OT yesterday. She reports that the pain is well-controlled today. No significant events overnight Review of Systems Review of Systems: All systems reviewed & are unremarkable except as noted in Subjective Physical Exam Physical Exam: General- Not in distress Lungs- clear to auscultation no wheezing or crackles. Heart- regular rhythm; no murmur, no gallop. Abdomen- normal bowel sounds, soft, nontender, no distension. Extremities- no pretibial edema, no erythema seen. Bandages over left hip clean dry and intact. Neuro- alert, oriented x 3; PERRL, no facial palsy; no dysarthria; obeys simple commands Results & Data Results & Data Vital Signs (Past 12 Hours) Vital Signs Temp Pulse Pulse Resp BP Pulse Ox O2 Del Method 10/28/23 07:59 60 10/28/23 07:09 36.4 C L 60 18 175/91 H 96 Room Air 10/28/23 03:51 37.1 C 59 L 18 176/87 H 92 Room Air (1) Fall Encounter type: initial encounter Qualified Code(s): W19.XXXA - Unspecified fall, initial encounter
[2023-10-28] MEDS: MAGNESIUM HYDROXIDE SUSP 30 ML UDC PO ONE (12:43)
--- NOTE | 2023-10-29 11:17 | Hospitalist Progress Note ---
Date of Service October 29, 2023 Assessment & Plan (1) Fall: Plan: 83-year-old female with past medical history significant for primary hyperparathyroidism, history of adrenal insufficiency, history of adenocarcinoma pancreas status post Whipple's procedure, hypothyroidism, hyperlipidemia, pancreatic cyst, history of pancreatitis, history of sinus node dysfunction status post pacemaker, history of CAD s/p cardiac stenting ,status post CABG, abdominal aortic ectasia, right subclavian artery stenosis, hypertension, paroxysmal atrial fibrillation, bilateral non symptomatic carotid stenosis, GERD, esophageal spasm, CKD stage III, osteoporosis, history of DVT and history of PE, statin intolerance, adjustment disorder who lives at home with her presents with fall and found to have right hip and right wrist fracture. Patient states that she took her dog and went outside and she was trimming her bushes when she fell on the right side. Mechanical fall Nondisplaced distal right radius and ulnar styloid fractures Impacted right femoral neck fracture Status post right femoral neck closed reduction and internal fixation on 10/25 Displaced right radius/ulnar fracture managed conservatively Continue PT OT. Recommend rehab. Pain control Bowel regimen with milk of mag and MiraLAX On Eliquis for DVT prophylaxis Mild elevation of troponin, likely demand ischemia Denies any chest pains History of CAD status post stent and CABG serial enzymes and echo reviewed. Cardiology evaluated for preop clearance. Patient is estimated to have moderate risks of perioperative cardiac and noncardiac complication given her age and general fragility History of CAD status post stenting status post CABG: Continue aspirin Imdur, metoprolol succinate History of DVT and PE: Patient says blood clot was more than 2 years ago. Eliquis resumed History of A-fib: Rate controlled with metoprolol succinate. On Eliquis Sick sinus syndrome: Status post pacemaker History of adenocarcinoma pancreas: Status post Whipple's procedure. Patient seems declined chemotherapy. Follows with hematology oncology Hypertension: On amlodipine and metoprolol succinate. Continue. Will monitor Adjustment disorder: On Zoloft, continue DVT prophylaxis: Eliquis Disposition: Med/telemetry. PT OT recommends rehab. Appreciate case management assistance for placement. Patient wants to go home as her has dementia and sees a web design instructor for her . She reports that her son is helping out. Possible discharge in next few days. Full code Please note the above document was generated using voice recognition software. It may contain grammatical, syntax or spelling errors. Any formal questions or concerns about the content, text or information contained within the body of this dictation should be directly addressed to the provider for clarification Admission and Anticipated Discharge Date Admission Date: October 24, 2023 Subjective Patient seen and examined at bedside. She reports that she is feeling much better. Pain is well-controlled She is able to move inside the room with the help of the walker. No other significant events overnight Review of Systems Review of Systems: All systems reviewed & are unremarkable except as noted in Subjective Physical Exam Physical Exam: General- Not in distress Lungs- clear to auscultation no wheezing or crackles. Heart- regular rhythm; no murmur, no gallop. Abdomen- normal bowel sounds, soft, nontender, no distension. Extremities- no pretibial edema, no erythema seen. Bandages over left hip clean dry and intact. Neuro- alert, oriented x 3; PERRL, no facial palsy; no dysarthria; obeys simple commands Results & Data Results & Data Vital Signs (Past 12 Hours) Vital Signs Temp Pulse Pulse Resp BP Pulse Ox O2 Del Method 10/29/23 08:02 36.7 C 67 16 184/92 H 93 Room Air 10/29/23 08:00 Room Air 10/29/23 07:00 58 L 10/29/23 03:32 36.8 C 66 16 173/84 H 93 Room Air (1) Fall Encounter type: initial encounter Qualified Code(s): W19.XXXA - Unspecified fall, initial encounter
--- NOTE | 2023-10-30 14:00 | Hospitalist Progress Note ---
Date of Service October 30, 2023 Assessment & Plan (1) Fall: Plan: 83-year-old female with past medical history significant for primary hyperparathyroidism, history of adrenal insufficiency, history of adenocarcinoma pancreas status post Whipple's procedure, hypothyroidism, hyperlipidemia, pancreatic cyst, history of pancreatitis, history of sinus node dysfunction status post pacemaker, history of CAD s/p cardiac stenting ,status post CABG, abdominal aortic ectasia, right subclavian artery stenosis, hypertension, paroxysmal atrial fibrillation, bilateral non symptomatic carotid stenosis, GERD, esophageal spasm, CKD stage III, osteoporosis, history of DVT and history of PE, statin intolerance, adjustment disorder who lives at home with her presents with fall and found to have right hip and right wrist fracture. Patient states that she took her dog and went outside and she was trimming her bushes when she fell on the right side. Mechanical fall Nondisplaced distal right radius and ulnar styloid fractures Impacted right femoral neck fracture Status post right femoral neck closed reduction and internal fixation on 10/25 Displaced right radius/ulnar fracture managed conservatively Continue PT OT. Recommend rehab. Pain control Bowel regimen with milk of mag and MiraLAX On Eliquis for DVT prophylaxis Mild elevation of troponin, likely demand ischemia Denies any chest pains History of CAD status post stent and CABG serial enzymes and echo reviewed. Cardiology evaluated for preop clearance. Patient is estimated to have moderate risks of perioperative cardiac and noncardiac complication given her age and general fragility History of CAD status post stenting status post CABG: Continue aspirin Imdur, metoprolol succinate History of DVT and PE: Patient says blood clot was more than 2 years ago. Eliquis resumed History of A-fib: Rate controlled with metoprolol succinate. On Eliquis Sick sinus syndrome: Status post pacemaker History of adenocarcinoma pancreas: Status post Whipple's procedure. Patient seems declined chemotherapy. Follows with hematology oncology Hypertension: On amlodipine and metoprolol succinate. Continue. Will monitor Adjustment disorder: On Zoloft, continue DVT prophylaxis: Eliquis Disposition: Med/telemetry. PT OT recommends rehab. Appreciate case management assistance for placement. Patient wants to go home as her has dementia and sees a fleet service manager for her . She reports that her son is helping out. Possible discharge in next few days. Prescription for platform walker provided to case management. Will require home PT OT Full code Please note the above document was generated using voice recognition software. It may contain grammatical, syntax or spelling errors. Any formal questions or concerns about the content, text or information contained within the body of this dictation should be directly addressed to the provider for clarification Admission and Anticipated Discharge Date Admission Date: October 24, 2023 Subjective Patient seen and examined at bedside. Comfortable; not in distress. Denies fever, chills, chest pain, shortness of breath, abdominal pain or urinary symptoms. No significant overnight events Physical Exam Physical Exam: General- Not in distress Lungs- clear to auscultation no wheezing or crackles. Heart- regular rhythm; no murmur, no gallop. Abdomen- normal bowel sounds, soft, nontender, no distension. Extremities- no pretibial edema, no erythema seen. Bandages over left hip clean dry and intact. Neuro- alert, oriented x 3; PERRL, no facial palsy; no dysarthria; obeys simple commands Results & Data Results & Data Vital Signs (Past 12 Hours) Vital Signs Temp Pulse Pulse Pulse Resp BP Pulse Ox 10/30/23 11:29 36.6 C 69 18 137/79 91 10/30/23 10:03 10/30/23 08:00 36.6 C 62 18 136/85 93 10/30/23 07:01 62 10/30/23 02:57 36.4 C L 62 18 141/71 H 91 O2 Del Method 10/30/23 11:29 Room Air 10/30/23 10:03 Room Air 10/30/23 08:00 Room Air 10/30/23 07:01 10/30/23 02:57 Room Air (1) Fall Encounter type: initial encounter Qualified Code(s): W19.XXXA - Unspecified fall, initial encounter
[2023-10-31] MEDS: SIMETHICONE 80 MG CHEW PO PRN (09:22)
[2023-10-31] MEDS: ACETAMINOPHEN 325 MG TAB PO PRN (11:58)
--- NOTE | 2023-10-31 12:27 | Discharge Summary ---
Date of Service October 31, 2023 Admission HPI Per Admitting Provider 83-year-old female with past medical history significant for primary hyperparathyroidism, history of adrenal insufficiency, history of adenocarcinoma pancreas status post Whipple's procedure, hypothyroidism, hyperlipidemia, pancreatic cyst, history of pancreatitis, history of sinus node dysfunction status post pacemaker, history of CAD s/p cardiac stenting ,status post CABG, abdominal aortic ectasia, right subclavian artery stenosis, hypertension, paroxysmal atrial fibrillation, bilateral non symptomatic carotid stenosis, GERD, esophageal spasm, CKD stage III, osteoporosis, history of DVT and history of PE, statin intolerance, adjustment disorder who lives at home with her presents with fall and found to have right hip fracture. Patient states that she took her dog and went outside and she was trimming her bushes when she fell on the right side ,hit her head but no loss of consciousness and the wrist was hurting a lot and she could not get up. She called neighbors for help. Neighbors helped her to get in the chair. Then she called her son. They went to [facility] but it was late and the hospital was closed. Today she went to PCP office and was sent to ER. Says since fall having difficulty to get up and ambulate. A lot of pain in the wrist. Denies any fevers. Earlier had headache but that resolved now. No blurred visions. No cough. Eating and drinking okay. No chest pain or shortness of breath. No nausea. No abdominal pain. Says sometimes she has bowel incontinence. Micturating okay. Currently resting comfortably and hemodynamically stable. Stairs prior to fall she was able to ambulate in the house okay though she couldn't ambulate long distances. Past medical history. As mentioned above.Past surgical history. Past surgical history. left breast core biopsy. CABG. EGD. EGD with endoscopic ultrasound. Eyelid surgery. Knee arthroscopy. Laparoscopic cholecystectomy. Hemorrhoidectomy. Partial removal of pancreas. Appendectomy. Bilateral cataracts. Tonsillectomy are not known. Shoulder arthroscopy. Total hysterectomy. Social history. . No smoking. No alcohol use. No drug use. Family history. Mother had seizures. Stroke. Admission Exam Per Admitting Provider General- Not in distress Head- atraumatic Eyes- PERRL. ENT- oropharynx clear Neck- supple, no JVD. Lungs- clear to auscultation no wheezing or crackles. Heart- regular rhythm; no murmur, no gallop. Abdomen- normal bowel sounds, soft, nontender, no distension. Extremities- no pretibial edema, no erythema seen.Right lower extremity slightly shortened. Neuro- alert, oriented x 3; PERRL, no facial palsy; no dysarthria; obeys simple commands Principal Diagnosis Mechanical fall Nondisplaced distal right radius and ulnar styloid fractures Impacted right femoral neck fracture Status post right femoral neck closed reduction and internal fixation on 10/25 Discharge Exam General- Not in distress Lungs- clear to auscultation no wheezing or crackles. Heart- regular rhythm; no murmur, no gallop. Abdomen- normal bowel sounds, soft, nontender, no distension. Extremities- no pretibial edema, no erythema seen. Bandages over left hip clean dry and intact. Neuro- alert, oriented x 3; PERRL, no facial palsy; no dysarthria; obeys simple command Discharge Data Allergies Allergy/AdvReac Type Severity Reaction Status Date / Time Iodinated Contrast Media Allergy Severe Hives, Verified 10/24/23 19:46 anaphylaxis ether Allergy Unknown Unknown Verified 10/24/23 19:46 prednisone AdvReac Severe GI pain > Verified 10/24/23 19:46 pancreatitis rosiglitazone AdvReac Severe Blood clots Verified 10/24/23 19:46 atorvastatin [From Lipitor] AdvReac Intermediate Muscle Pain Verified 10/24/23 19:46 ezetimibe [From Zetia] AdvReac Intermediate Muscle Pain Verified 10/24/23 19:46 lisinopril AdvReac Intermediate Cough Verified 10/24/23 19:46 losartan AdvReac Intermediate N/V Verified 10/24/23 19:46 ranitidine AdvReac Intermediate N/V, Verified 10/24/23 19:46 achiness rosuvastatin [From Crestor] AdvReac Intermediate Muscle Pain Verified 10/24/23 19:46 Consultations 10/24/23 19:13 ED Decision to Admit Stat 10/25/23 08:00 Consult Cardiology Routine 10/25/23 08:21 Consult Orthopedic Surgery Routine Procedures Performed Operation Date: 10/26/23 12:45 Actual Procedures p Right Femoral Neck Closed Reduction and Internal Fixation(Right) - Mir Cavazos MD Ordered Studies 10/24/23 17:40 CT cervical spine wo con Stat CT head/brain wo con Stat 10/26/23 12:45 FL hip RT 2-3V Routine Hospital Course (1) Fall: 83-year-old female with past medical history significant for primary hyperparathyroidism, history of adrenal insufficiency, history of adenocarcinoma pancreas status post Whipple's procedure, hypothyroidism, hyperlipidemia, pancreatic cyst, history of pancreatitis, history of sinus node dysfunction status post pacemaker, history of CAD s/p cardiac stenting ,status post CABG, abdominal aortic ectasia, right subclavian artery stenosis, hypertension, paroxysmal atrial fibrillation, bilateral non symptomatic carotid stenosis, GERD, esophageal spasm, CKD stage III, osteoporosis, history of DVT and history of PE, statin intolerance, adjustment disorder who lives at home with her presents with fall and found to have right hip and right wrist fracture. Patient states that she took her dog and went outside and she was trimming her bushes when she fell on the right side. Mechanical fall Nondisplaced distal right radius and ulnar styloid fractures Impacted right femoral neck fracture Status post right femoral neck closed reduction and internal fixation on 10/25 Displaced right radius/ulnar fracture managed conservatively Patient did well in post-operative period. Participated in PT OT; was initially recommended to go to rehab However, patient preferred to go back home with home health. Platform walker prescribed at discharge. Patient to follow-up with PCP and orthopedic after discharge. No medication changes were done at discharge. Please note the above document was generated using voice recognition software. It may contain grammatical, syntax or spelling errors. Any formal questions or concerns about the content, text or information contained within the body of this dictation should be directly addressed to the provider for clarification Total Time Total Time Spent Total Time Spent (In Minutes): 35 Total Time Includes: Examination of the Patient, Discharge Planning, Medication Reconciliation, Communication With Other Providers and Other Discharge Plan Discharge Items Patient Disposition: Home - Self-Care Reason For Visit: RIGHT HIP FRACTURE, ELEVATED TROPONIN Discharge Diagnosis: Mechanical fall Nondisplaced distal right radius and ulnar styloid fractures Impacted right femoral neck fracture Status post right femoral neck closed reduction and internal fixation on 10/25 Activity: Per Instructions section Non-emergency contact: Primary Care Provider Call non-emergency contact if: you have any medication questions and your symptoms worsen Follow-up/Referrals: Mir Cavazos MD [Surgeon] - Shonda Chakraborty MD [Primary Care Provider] - (Date & Time 11/05/2023 2:00 PM Provider Pierce Herron MD Department Family Medicine [facility] ) Diet: Regular Addtl Attending Provider Instructions: Orthopaedic Instructions after Hip Fracture Surgery: Please keep your wound clean and dry. Do not remove any of the zari. Zari were removed at your follow-up appointment with orthopedic surgery. Please continue daily dressing changes until your follow-up appointment. If there is no drainage onto the dressing for total of 24 hours, you may shower after 5 days from surgery. Allow soap and water to run over the incision, no scrubbing, and pat dry. Do not submerse (sitting in bathtub, hot tub, jacuzzi, pool, etc) the wound for at least 3 weeks. You may bear weight on your lower extemities as tolerated. Please use the walker or as instructed by physical therapy. For pain control please use Tylenol as needed. You can also apply ice to the surgical site. You are prescribe oxycodone for severe pain. Orthopedic clinic follow-up should be in 2-3 weeks after surgery for repeat x- ray. Zari can be removed at the orthopedic follow-up. . Please contact the clinic at [phone] Pending Studies at Discharge: No Stand-Alone Forms: My [facility] [email or web address], Smoking Cessation Medications and DC Order Prescriptions: New oxycodone 5 mg tablet 5 mg PO Q8H PRN (Reason: pain) Qty: 14 0RF Continued aspirin 81 mg Tablet,Delayed Release (Dr/Ec) 81 mg PO QPM levothyroxine 50 mcg Tablet 50 mcg PO DAILYBB nitroglycerin 0.4 mg Tablet, Sublingual 1 tab Sublingual UD PRN (Reason: Chest Pain) alprazolam [Xanax] 0.25 mg tablet 0.25 mg PO TID PRN (Reason: Anxiety/INSOMNIA) dicyclomine 10 mg Capsule 10 mg PO QID PRN (Reason: Indigestion) cholecalciferol (vitamin D3) [Vitamin D3] 50 mcg (2,000 unit) tablet 2,000 unit PO QAM acetaminophen [Tylenol Extra Strength] 500 mg Tablet 1,000 mg PO Q8H PRN (Reason: knee pain) sertraline 100 mg tablet 100 mg PO DAILY amlodipine 5 mg tablet 5 mg PO DAILY cholestyramine (with sugar) 4 gram powder in packet 1 ea PO Q OTHER DAY isosorbide mononitrate 60 mg tablet extended release 24 hr 60 mg PO BID simethicone 80 mg Tablet,Chewable 80 - 160 mg PO QID PRN (Reason: BLOATING/GAS DISCOMFORT) diclofenac sodium 1 % Gel 2 g TOPICAL QID PRN (Reason: Pain) Creon 3,000-9,500- 15,000 unit capsule,delayed release(DR/EC) 3 cap PO TIDM Eliquis 5 mg tablet 5 mg PO BID metoprolol succinate 50 mg tablet extended release 24 hr 75 mg PO BID Discharge Orders: Discharge Order (Routine); Ordered 10/31/23 Ordered By: William Greco Admission Data Admit Date/Time: 10/24/23 20:17 Attending Provider: William Greco Admit Provider: Roger Banda Primary Care Provider: Shonda Chakraborty Other Providers: Kenny Morel; Roger Banda; Victoriano Stephens; Mir Cavazos Other Interventions: Discharge Summary Assessment (RN) Last Done: 10/31/23 12:12
== END 2023-10-31 14:11 | disposition home health service (06) | DRG 481 ==
LOC: ED 17:28 → 2N 20:17 → SUATTDRO 20:17 → 2N 23:03

== ENCOUNTER 2024-04-08 05:23 | Inpatient (IN) ==
--- NOTE | 2024-03-19 13:01 | PAT Medication Instructions ---
Medication Instructions Date of Service March 19, 2024 Home Medications aspirin 81 mg tablet,delayed release 81 mg PO QPM levothyroxine 50 mcg tablet 50 mcg PO DAILYBB nitroglycerin 0.4 mg sublingual tablet 1 tab sublingual UD PRN Chest Pain alprazolam 0.25 mg tablet (Xanax) 0.25 mg PO TID PRN Anxiety/INSOMNIA cholecalciferol (vitamin D3) 50 mcg (2,000 unit) tablet (Vitamin D3) 2,000 unit PO QAM dicyclomine 10 mg capsule 10 mg PO QID PRN Indigestion acetaminophen 500 mg tablet (Tylenol Extra Strength) 1,000 mg PO Q8H PRN knee pain cholestyramine (with sugar) 4 gram powder for susp in a packet 1 ea PO Q OTHER DAY sertraline 100 mg tablet 50 mg PO QAM isosorbide mononitrate 60 mg tablet,extended release 24 hr 60 mg PO BID apixaban 5 mg tablet (Eliquis) 5 mg PO BID diclofenac sodium 1 % topical gel 2 g topical QID PRN Pain sramir-uelliiqu-ovbfpon 3,000-9,500-15,000 unit capsule, delayed rel (Creon) 3 cap PO TIDM metoprolol succinate 50 mg tablet,extended release 24 hr 50 mg PO BID simethicone 80 mg chewable tablet 80 - 160 mg PO QID PRN BLOATING/GAS DISCOMFORT calcium carbonate 600 mg-vitamin D3 5 mcg (200 unit) tablet 1 tab PO QAM oxycodone 5 mg tablet 10 mg PO Q8H PRN pain Continue as directed nitroglycerin 0.4 mg sublingual tablet 1 tab sublingual UD PRN Chest Pain (if needed) ASK your surgeon for instructions diclofenac sodium 1 % topical gel 2 g topical QID PRN Pain ASK your prescriber and surgeon aspirin 81 mg tablet,delayed release 81 mg PO QPM apixaban 5 mg tablet (Eliquis) 5 mg PO BID (From anesthesia perspective, apixaban/Eliquis needs to be stopped 72 hours/3 days before surgery. Please check if okay with doctor that prescribes this to you) STOP taking 24 hours before surgery cholestyramine (with sugar) 4 gram powder for susp in a packet 1 ea PO Q OTHER DAY diclofenac sodium 1 % topical gel 2 g topical QID PRN Pain DO NOT take the morning of surgery cholecalciferol (vitamin D3) 50 mcg (2,000 unit) tablet (Vitamin D3) 2,000 unit PO QAM dicyclomine 10 mg capsule 10 mg PO QID PRN Indigestion gimvlw-vagdjffn-xeeknho 3,000-9,500-15,000 unit capsule, delayed rel (Creon) 3 cap PO TIDM simethicone 80 mg chewable tablet 80 - 160 mg PO QID PRN BLOATING/GAS DISCOMFORT calcium carbonate 600 mg-vitamin D3 5 mcg (200 unit) tablet 1 tab PO QAM Take morning of surgery With a small sip of water, OTHERWISE NOTHING TO EAT OR DRINK AFTER MIDNIGHT: levothyroxine 50 mcg tablet 50 mcg PO DAILYBB alprazolam 0.25 mg tablet (Xanax) 0.25 mg PO TID PRN Anxiety/INSOMNIA (if n eeded) acetaminophen 500 mg tablet (Tylenol Extra Strength) 1,000 mg PO Q8H PRN knee pain (if needed) sertraline 100 mg tablet 50 mg PO QAM isosorbide mononitrate 60 mg tablet,extended release 24 hr 60 mg PO BID metoprolol succinate 50 mg tablet,extended release 24 hr 50 mg PO BID oxycodone 5 mg tablet 10 mg PO Q8H PRN pain (if needed) Take evening before surgery alprazolam 0.25 mg tablet (Xanax) 0.25 mg PO TID PRN Anxiety/INSOMNIA (if needed) dicyclomine 10 mg capsule 10 mg PO QID PRN Indigestion (if needed) acetaminophen 500 mg tablet (Tylenol Extra Strength) 1,000 mg PO Q8H PRN knee pain (if needed) isosorbide mononitrate 60 mg tablet,extended release 24 hr 60 mg PO BID fgyent-vgyfnsxk-tmzlksx 3,000-9,500-15,000 unit capsule, delayed rel (Creon) 3 cap PO TIDM metoprolol succinate 50 mg tablet,extended release 24 hr 50 mg PO BID simethicone 80 mg chewable tablet 80 - 160 mg PO QID PRN BLOATING/GAS DISCOMFORT (if needed) oxycodone 5 mg tablet 10 mg PO Q8H PRN pain (if needed) Other Notes If you have any questions please call us at [phone] or [phone] or [phone] or [phone]
--- NOTE | 2024-03-21 11:48 | Anesthesiology Consultation ---
Date of Service March 21, 2024 Assessment & Plan (1) Encounter for pre-operative examination: Plan - check BSG am DOS. - will request most recent [facility] pacemaker report. - Case discussed in detail with Dr. Mosher who advised if patient can see cardiology prior to surgery to schedule pre-op evaluation from overall cardiac standpoint since patient missed advised 6 month follow-up, but if not surgery can proceed as planned. - Medtronic pacemaker. - cardiology office visit 06/05/2023 S: "...CAD s/p CABG x 5 in 2005. BROWN to LAD, SVG to diag, SVG to OM, SVT to RPDA and SVG to distal RCA, repeat cath in 2010 vein grafts to RPDA and distal RCA territory occluded. Dual chamber PPM 2011. IV contrast dye reaction resulting in shock and airway collapse...episodes of palpitations or feeling her heart racing with pain radiating down both arms. Last a few minutes and is relieved with SL NTG...very different from her CAD symptoms...denies any chest pain or her typical anginal equivalent...increase of palpitations...increase Toprol XL to 75 mg daily...follow up in 6 months..." - Outpatient joint assessment: Patient is currently scheduled for inpatient pathway. If re-evaluated and patient/surgeon requests outpatient pathway, patient is not a candidate for outpatient joint program from anesthesia standpoint. Chart Review Chart Review: Pending: Refer to Additional Notes / Consult section and Patient seen in Pre Admission Testing Teaching & Discussion Pre-Anesthesia Teaching/Discussion Notes: Instructed NPO after midnight before surgery, except medications with 15 cc of water. Medication instructions provided according to the PAT guidelines. History Surgery Operation Date: 04/08/24 12:30 Proposed Procedures p Right Cemented Total Hip Arthroplasty with - Victoriano Duenas MD s Right Hip Hardware Removal - Victoriano Duenas MD Height/Weight Height: 5 ft 7 in Weight: 71.7 kg Allergies Allergy/AdvReac Type Severity Reaction Status Date / Time Iodinated Contrast Media Allergy Severe Hives, Verified 03/14/24 11:19 anaphylaxis ether Allergy Unknown Unknown Verified 03/14/24 11:19 prednisone AdvReac Severe GI pain > Verified 03/14/24 11:19 pancreatitis rosiglitazone AdvReac Severe Blood clots Verified 03/14/24 11:19 atorvastatin [From Lipitor] AdvReac Intermediate Muscle Pain Verified 03/14/24 11:19 ezetimibe [From Zetia] AdvReac Intermediate Muscle Pain Verified 03/14/24 11:19 lisinopril AdvReac Intermediate Cough Verified 03/14/24 11:19 losartan AdvReac Intermediate N/V Verified 03/14/24 11:19 ranitidine AdvReac Intermediate N/V, Verified 03/14/24 11:19 achiness rosuvastatin [From Crestor] AdvReac Intermediate Muscle Pain Verified 03/14/24 11:19 Medications Home Medications Medication Instructions Recorded Confirmed Last Taken aspirin 81 mg tablet,delayed 81 mg PO QPM 03/19/18 03/14/24 12/28/22 release levothyroxine 50 mcg tablet 50 mcg PO DAILYBB 03/19/18 03/14/24 12/29/22 nitroglycerin 0.4 mg sublingual 1 tab sublingual UD PRN Chest Pain 03/19/18 03/14/24 2 Days Ago tablet ~12/19/22 alprazolam 0.25 mg tablet (Xanax) 0.25 mg PO TID PRN Anxiety/INSOMNIA 06/18/20 03/14/24 Unknown cholecalciferol (vitamin D3) 50 2,000 unit PO QAM 06/18/20 03/14/24 12/28/22 mcg (2,000 unit) tablet (Vitamin D3) dicyclomine 10 mg capsule 10 mg PO QID PRN Indigestion 06/18/20 03/14/24 2 Days Ago ~12/19/22 acetaminophen 500 mg tablet 1,000 mg PO Q8H PRN knee pain 02/24/21 03/14/24 1 Week Ago (Tylenol Extra Strength) ~12/14/22 cholestyramine (with sugar) 4 gram 1 ea PO Q OTHER DAY 12/21/22 03/14/24 10/23/23 powder for susp in a packet sertraline 100 mg tablet 50 mg PO QAM 12/21/22 03/14/24 12/28/22 isosorbide mononitrate 60 mg 60 mg PO BID 01/22/23 03/14/24 Unknown tablet,extended release 24 hr apixaban 5 mg tablet (Eliquis) 5 mg PO BID 10/24/23 03/14/24 Unknown diclofenac sodium 1 % topical gel 2 g topical QID PRN Pain 10/24/23 03/14/24 Unknown ohqbtz-ulakdjzn-iygkxfl 3 cap PO TIDM 10/24/23 03/14/24 Unknown 3,000-9,500-15,000 unit capsule, delayed rel (Creon) metoprolol succinate 50 mg 50 mg PO BID 10/24/23 03/14/24 Unknown tablet,extended release 24 hr simethicone 80 mg chewable tablet 80 - 160 mg PO QID PRN 10/24/23 03/14/24 Unknown BLOATING/GAS DISCOMFORT calcium carbonate 600 mg-vitamin 1 tab PO QAM 03/14/24 03/14/24 Unknown D3 5 mcg (200 unit) tablet oxycodone 5 mg tablet 10 mg PO Q8H PRN pain 03/14/24 03/14/24 Unknown Past Medical History Medical History (Updated 03/21/24 @ 15:03 by Jennifer Galvez, AMAN) Adrenal insufficiency listed in [facility] EMR-no notation by PCP Atrial fibrillation Eliquis CAD (coronary artery disease) CABG x5 in 2005 in [place] with BROWN to LAD, SVG to diagonal, SVG to OM, SVG to RPDA, and SVG to the distal RCA, PCI x3 Carotid artery stenosis LICA/FITZ <50% stenosis, Right subclavian stenosis vs. 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 Exercise / Class Metabolic Activity III < 4 Walking/Shop/Light housework (ambulates with walker, denies chest discomfort or shortness of breath with usual activities) Past Family History Family History Mother Stroke Past Surgical History Surgical History (Updated 03/21/24 @ 12:00 by Jennifer Galvez PA-C) H/O parathyroidectomy History of appendectomy History of arthroscopy of knee History of arthroscopy of shoulder History of bilateral cataract extraction History of cholecystectomy History of coronary artery bypass graft x 3 CABG x5 in 2005 in [place] with BROWN to LAD, SVG to diagonal, SVG to OM, SVG to RPDA, and SVG to the distal RCA History of hemorrhoidectomy History of hip surgery right History of hysterectomy History of tonsillectomy and adenoidectomy History of Whipple procedure Pacemaker placement, battery replacement 2022 [facility] Past Anesthesia History No Hx of Anesthesia Complications and No Family Hx of Anesthesia Complications History of PONV No Hx of PONV and No Hx of Motion Sickness Social History Smoking Status: Never smoker Do You Dip or Chew Tobacco: No Hx Alcohol Use: No Hx Substance Use: No substance use type: does not use Review of Systems Snoring, denies witnessed apneas. Patient denies chest pain, shortness of breath, dyspnea on exertion, fever, chills, cough, wheezing, or palpitations. Physical Exam Vital Signs Vitals BP 122/79 P 93 TEMP 98.1 SP02 94% on RA RESP 18 Physical Patient resting comfortably in chair in no acute distress, alert and oriented, responding appropriately throughout visit Full cervical extension range of motion without pain TMD 3.5 finger breadths Mallampati Score 2 Dentition: several loose teeth, denies chipped, caps/crowns, implants or bridges Lungs: normal respiratory effort. Good air movement, clear throughout to auscultation, no adventitious breath sounds Cardiac: regular rate and rhythm, no murmurs noted Carotid arteries: negative bruit bilat Lab Results Anesthesia Preop Results Results Anesthesia Widget: PT 13.2 Seconds (9.0-12.0) H 03/21/24 PTT 31 Seconds (21-31) 03/21/24 INR 1.2 (0.9-1.1) H 03/21/24 HA1c 5.8 % (4.5-5.6) H 03/21/24 Blood Type A Positive 03/21/24 Antibody Screen NEGATIVE 03/21/24 Testing Laboratory Results 02/21/24 WBC: 7.3 H/H: 37/90 PLATELETS: 210,000 SODIUM: 139 POTASSIUM: 4.1 CHLORIDE: 102 CO2: 27 BUN: 30 CREATININE: 0.9 GLUCOSE: 207 Electrocardiogram Date: 10/26/23 Atrial paced rhythm, rate 60 bpm Incomplete LBB Nonspecific T wave abnormality Prolonged QT Chest X-Ray Date: 03/21/24 No acute cardiopulmonary findings. Echocardiogram Date: 10/25/23 EF 50-55% Moderate size inferior and posterior wall motion abnormality with thinning and hypokinesis to akinesis of the segments Moderate mitral regurgitation Mild tricuspid regurgitation Grade I diastolic dysfunction Stress Test Date: 01/26/23 Pharmacologic Large sized fixed apical, inferior and inferolateral perfusion defect without i nducible ischemia MPHR 56% Cervical Spine Date: 10/24/23 1. Interseptal thickening is concerning for pulmonary edema. 2. No acute finding of the cervical spine.
--- NOTE | 2024-04-05 13:49 | History & Physical Report ---
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 Of the hardware is cut the head. She is pretty miserable. She got multiple medical comorbidities but having difficulty getting around the house she is. Plan: We had a long discussion as far as treatment options. [id number] andi aguilar option surgically is hard removal and hip arthroplasty. She strongly desiring to do this. 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 We will proceed with hardware removal and a hybrid total hip replacement. The risks Mente this procedure explained and she fully understands the risks at her age. She will need to hop hold her Eliquis 3 days preop. Will start at 24 hours postop. She may need to go to rehab afterwards. Her is unable to care for her but her daughter is going to come from out of town to assist in her care. (2) Paroxysmal atrial fibrillation with RVR: (3) Pancreatic adenocarcinoma: (4) NSTEMI (non-ST elevated myocardial infarction): (5) CKD (chronic kidney disease) stage 3, GFR 30-59 ml/min: (6) Paroxysmal atrial fibrillation: (7) Hyperparathyroidism: (8) History of coronary artery disease: History of Present Illness Chief Complaint: . Persistent hip pain dysfunction ambulatory dysfunction after internal fixation of a femoral neck fracture last 5 months ago. Primary Care Provider: Shonda Chakraborty MD . The patient is an 83-year-old very pleasant spry elderly female who now presents for further surgical management of right hip. She stained a fall back in September of this year and had a valgus impacted femoral neck fracture as well as a distal radius fracture. This was treated by Dr. Cavazos with a Synthes femoral neck/screw system. She did quite well initially but over the past several months her functions deteriorated and pains increased. X-rays show progressive loss of fixation and collapse and cutting out of the hardware. She is having trouble getting around. She got significant pain. She is miserable. She would like to have her hip fixed. Allergies Allergy/AdvReac Type Severity Reaction Status Date / Time Iodinated Contrast Media Allergy Severe Hives, Verified 03/14/24 11:19 anaphylaxis ether Allergy Unknown Unknown Verified 03/14/24 11:19 prednisone AdvReac Severe GI pain > Verified 03/14/24 11:19 pancreatitis rosiglitazone AdvReac Severe Blood clots Verified 03/14/24 11:19 atorvastatin [From Lipitor] AdvReac Intermediate Muscle Pain Verified 03/14/24 11:19 ezetimibe [From Zetia] AdvReac Intermediate Muscle Pain Verified 03/14/24 11:19 lisinopril AdvReac Intermediate Cough Verified 03/14/24 11:19 losartan AdvReac Intermediate N/V Verified 03/14/24 11:19 ranitidine AdvReac Intermediate N/V, Verified 03/14/24 11:19 achiness rosuvastatin [From Crestor] AdvReac Intermediate Muscle Pain Verified 03/14/24 11:19 Home Medications Medication Instructions Recorded Confirmed Type aspirin 81 mg tablet,delayed 81 mg PO QPM 03/19/18 03/14/24 History release levothyroxine 50 mcg tablet 50 mcg PO DAILYBB 03/19/18 03/14/24 History nitroglycerin 0.4 mg sublingual 1 tab sublingual UD PRN Chest Pain 03/19/18 03/14/24 History tablet alprazolam 0.25 mg tablet (Xanax) 0.25 mg PO TID PRN Anxiety/INSOMNIA 06/18/20 03/14/24 History cholecalciferol (vitamin D3) 50 2,000 unit PO QAM 06/18/20 03/14/24 History mcg (2,000 unit) tablet (Vitamin D3) dicyclomine 10 mg capsule 10 mg PO QID PRN Indigestion 06/18/20 03/14/24 History acetaminophen 500 mg tablet 1,000 mg PO Q8H PRN knee pain 02/24/21 03/14/24 History (Tylenol Extra Strength) cholestyramine (with sugar) 4 gram 1 ea PO Q OTHER DAY 12/21/22 03/14/24 History powder for susp in a packet sertraline 100 mg tablet 50 mg PO QAM 12/21/22 03/14/24 History isosorbide mononitrate 60 mg 60 mg PO BID 01/22/23 03/14/24 History tablet,extended release 24 hr apixaban 5 mg tablet (Eliquis) 5 mg PO BID 10/24/23 03/14/24 History diclofenac sodium 1 % topical gel 2 g topical QID PRN Pain 10/24/23 03/14/24 History eawlnv-eckdzjvc-vzjiril 3 cap PO TIDM 10/24/23 03/14/24 History 3,000-9,500-15,000 unit capsule, delayed rel (Creon) metoprolol succinate 50 mg 50 mg PO BID 10/24/23 03/14/24 History tablet,extended release 24 hr simethicone 80 mg chewable tablet 80 - 160 mg PO QID PRN 10/24/23 03/14/24 History BLOATING/GAS DISCOMFORT calcium 600 mg (as 1 tab PO QAM 03/14/24 03/14/24 History carbonate)-vitamin D3 5 mcg (200 unit) tablet oxycodone 5 mg tablet 10 mg PO Q8H PRN pain 03/14/24 03/14/24 History Past Med/Surg History Problem List Encounter for pre-operative examination 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 03/10/24 Fracture of right distal radius 11/07/23 Preop cardiovascular exam Nondisplaced fracture of styloid process of right ulna 10/25/23 Fall (Acute) 10/24/23 Contusion of face (Acute) 10/24/23 Head injury (Acute) 10/24/23 Contusion of left wrist (Acute) 10/24/23 Closed Colles' fracture of right radius (Acute) 10/24/23 Subcapital fracture of right hip (Acute) 10/24/23 Tachy-bossman syndrome Pacemaker battery depletion Paroxysmal atrial fibrillation with RVR Pancreatic pseudocyst Elevated troponin I level 12/30/22 Pancreatic adenocarcinoma Acute hypoxemic respiratory failure 12/30/22 Pancreatic mass (Acute) Fluid overload (Acute) 12/30/22 Hypoxia (Acute) 12/30/22 Acute pancreatitis (Acute) 12/21/22 NSTEMI (non-ST elevated myocardial infarction) 06/19/20 CKD (chronic kidney disease) stage 3, GFR 30-59 ml/min Acute electrocardiography changes (Acute) 06/18/20 Paroxysmal atrial fibrillation Hyperparathyroidism History of coronary artery disease DVT prophylaxis Allergy to iodinated contrast media H/O arthroscopy of shoulder H/O arthroscopy of knee Hx of hemorrhoidectomy S/P BSO (bilateral salpingo-oophorectomy) History of hysterectomy Hx of cholecystectomy S/P CABG x 3 CABG x5 in 2005 in [place] with BROWN to LAD, SVG to diagonal, SVG to OM, SVG to RPDA, and SVG to the distal RCA Hx of appendectomy Hx of adenoidectomy Hx of tonsillectomy Hx of cataract surgery Pacemaker 2/ SSS, last pacer check 01/2020 SSS (sick sinus syndrome) IPMN (intraductal papillary mucinous neoplasm) Atrial fibrillation HTN (hypertension) Dyslipidemia Pulmonary embolism remote years ago DVT (deep venous thrombosis) GERD (gastroesophageal reflux disease) Hypothyroidism Medical History Adrenal insufficiency listed in [facility] EMR-no notation by PCP History of blood transfusion post-op D&Cs Diabetes mellitus diet controlled TIA (transient ischemic attack) (~1971) SSS (sick sinus syndrome) follows with Dr Stephens, [employer] pacemaker Dyslipidemia CAD (coronary artery disease) CABG x5 in 2005 in [place] with BROWN to LAD, SVG to diagonal, SVG to OM, SVG to RPDA, and SVG to the distal RCA, 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 occlusion with abnormal flow noted in vertebral artery per 08/2019 carotid duplex Osteoarthritis Surgical History History of coronary artery bypass graft x 3 CABG x5 in 2005 in [place] with BROWN to LAD, SVG to diagonal, SVG to OM, SVG to RPDA, and SVG to the distal RCA History of hemorrhoidectomy History of appendectomy History of tonsillectomy and adenoidectomy History of hysterectomy History of bilateral cataract extraction History of cholecystectomy History of arthroscopy of shoulder History of arthroscopy of knee History of Whipple procedure History of hip surgery right Pacemaker placement, battery replacement 2022 [facility] H/O parathyroidectomy Family History Mother Stroke Social History Smoking Status: Never smoker Second Hand Exposure: No; Do You Dip or Chew Tobacco: No; Hx Alcohol Use: No Hx Substance Use: No Preferred Language: [place] Communication Ability: Effective Central Supply Tech Required: No Beliefs That Will Affect Care: None marital status: Current Living Situation: Spouse Current Living Situation Comment: with dementia Feels Safe at Home: Yes Assistive Devices: Cane, Glasses, Hearing Aid - Bilateral and Walker Review of Systems All systems reviewed & are unremarkable except as noted in HPI & below. Physical Exam . Physical examination was a pleasant spry elderly female. She comes in in a wheelchair. Examination of the right hip reveal patient walks with use of a walker. She has quite a bit of pain limps severely on the right side. She about 1/2 cm short in the right side compared to left. She has pain with any type of hip motion. She is neurologically intact. Her incision is benign wi thout signs of infection. Constitutional WD/WN, vitals as above Respiratory normal respiratory effort, lungs clear to auscultation Cardiovascular RRR, no murmur, no edema Gastrointestinal (Abdomen) normal bowel sounds, soft, nontender, no hepatosplenomegaly Results & Data Results & Data Laboratory Results . Diagnostic Findings . X-rays of the right hip and pelvis reveal femoral neck fracture fixed with Synthes femoral neck/hip device. She had diffuse osteopenia. The fracture is collapsed into varus. The hardware is cut out of the head. Fairly minimal arthritis. 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
[~2024-04-08 05:23] MED LIST changes: +ACETAMINOPHEN 500 MG TAB PO SCH; -ASPI81TA28 PO; -CARV25TA2 PO; +CeleBREX 200 MG CAP PO SCH; +FAMOTIDINE 20 MG TAB PO SCH; -FURO-85 PO; -IBUP-1277 PO; -IBUP600T44 PO; -ISOS60TA25 PO; -LEVO50TA6 PO; +LR 60ML/HR IV SCH; +METOCLOPRAMIDE HCL 10 MG TABLET PO SCH; -NRV5 PO; -NTRGSL/4 UT; -ONDA4TAB10 SL; -PRLSR20 PO; -TAMS0.4C38 PO; +TRANEXAMIC ACID 1,000 MG **IV Pre-op IV SCH; -WARF5TAB90 PO; -[UNRECOGNIZED DRUG - CODE] PO; +ceFAZolin 2000MG 2,000 MG/15 ML SYR IV SCH
[2024-04-08] MEDS: LR 60ML/HR IV SCH (06:08)
[2024-04-08] MEDS: ACETAMINOPHEN 500 MG TAB PO SCH ×2 (06:08→13:39)
[2024-04-08] MEDS: LACTATED RINGER'S 1,000 ML IV SCH (06:08)
[2024-04-08] MEDS: METOCLOPRAMIDE HCL 10 MG TABLET PO SCH (06:09)
[2024-04-08] MEDS: FAMOTIDINE 20 MG TAB PO SCH (06:09)
[2024-04-08] MEDS: CeleBREX 200 MG CAP PO SCH (06:09)
[2024-04-08] MEDS ORDERED: fentaNYL citrate PF 100 MCG/2 ML VIAL ONE (06:30)
[2024-04-08] MEDS ORDERED: MIDAZOLAM HCL 1 MG/ML 2ML VIAL ONE ×2 (06:30)
[2024-04-08] MEDS ORDERED: ROPIVACAINE 0.5% 5 MG/ML 30 ML VIAL ONE (06:31)
[2024-04-08] MEDS ORDERED: PROPOFOL IV EMULSION 10 MG/ML 20 ML VIAL IV ONE (06:34)
[2024-04-08] MEDS ORDERED: ONDANSETRON INJ 2 MG/ML 2 ML VIAL ONE (06:35)
[2024-04-08] MEDS ORDERED: ATROPINE SULFATE 0.1 MG/ML 10ML SYR IV PRN (06:39)
[2024-04-08] MEDS ORDERED: fentaNYL citrate PF 100 MCG/2 ML VIAL IV PRN (06:39)
[2024-04-08] MEDS ORDERED: ONDANSETRON INJ 2 MG/ML 2 ML VIAL IV PRN ×2 (06:39→10:24)
[2024-04-08] MEDS ORDERED: ePHEDrine sulfate 50 MG/ML AMP IV PRN (06:39)
[2024-04-08] MEDS: TRANEXAMIC ACID 1,000 MG **IV Pre-op IV SCH (06:41)
--- NOTE | 2024-04-08 06:41 | History & Physical Bridge Note ---
Date of Service April 08, 2024 History & Physical Bridge Note I have examined the patient, reviewed the History & Physical and in the interval since the performance of the History & Physical I have noted the following changes of clinical significance: no changes noted
[2024-04-08] MEDS: ceFAZolin 2000MG 2,000 MG/15 ML SYR IV SCH (07:00)
--- OUTSIDE RECORDS SUMMARY | 2024-04-08 07:27 | External Medical Summary | Summary of Care ---
Author Name Unknown Organization [facility] Address [address] [place] [address] Phone [phone] Care Team Providers Care Senior Project Manager Name Role Phone Shonda Fields MD Primary Care Prov ider Reason for Visit * Reason Onset Date Comments Advice 04/07/2024 Encounter Details Date Type Department Care Team (Late st Contact Info) Description 04/07/[address] [phone] Shonda Fields MD [address] [place], [place] [address] [address] Advice Allergies Active Allergy Reactions Criticality Noted [...] as of this encounter (statuses as of 04/07/2024) Medications Medication Sig Dispensed Refills Start Date End Date Status ASPIRIN EC 81 MG PO TBEC 1 TABLET DAILY 07/22/2014 Active acetaminophen (TYLENOL) 500 MG Tablet Take 2 Tablets by mouth every 8 hours as needed for Pain. Active Diclofenac Sodium 1 % External Gel (Voltaren)Indications :Shoulder arthritis Apply topically to affected area daily. 100 g 1 03/14/2021 Active Vitamin D3 25 MCG Oral Tablet 5 Tablets. Pt taking every other day 06/16/2021 Active Nitroglycerin 0.4 MG Sublingual Tablet Sublingual (Nitrostat)Indication s:S/P coronary artery stent placement,Coronary artery disease of [place] artery of [place] heart with stable angina pectoris (HCC) Place under the tongue 1 Tablet every 5 minutes as needed for Pain, Chest. up to 3 doses in 15 minutes 150 Tablet 3 11/30/2021 Active Calcium 600-D 600-400 MG-UNIT Oral Tablet Take 1 Tablet by mouth in the morning. In the morning.. 02/01/2022 Active Cholestyramine 4 GM Oral Packet (Questran) Take 1 Packet by mouth every other day. Mixed with liquid. 90 Packet 1 07/13/2022 Active Dicyclomine HCl 10 MG Oral Capsule (Bentyl)Indications:G astroesophageal reflux disease without esophagitis Take 1 Capsule by mouth 4 times a day as needed for Indigestion. For abdominal pain 120 Capsule 5 03/21/2023 Active Metoprolol Succinate ER 50 MG Oral Tablet Extended Release 24 Hour (toPROL XL)Indications:Paroxy smal atrial fibrillation (HCC) Take 1.5 Tablets by mouth in the morning and 1.5 Tablets before bedtime. 275 Tablet 3 06/05/2023 Active Sertraline HCl 100 MG Oral Tablet (Zoloft)Indications:A djustment disorder with anxious mood Take 1 Tablet by mouth in the morning. 30 Tablet 5 08/15/2023 Active ALPRAZolam 0.25 MG Oral Tablet (xaNAX)Indications:St ress TAKE ONE TABLET BY MOUTH THREE TIMES DAILY NEEDED FOR ANXIETY OR INSOMNIA 30 Tablet 2 11/16/2023 Active Levothyroxine Sodium 50 MCG Oral Tablet (Levoxyl)Indications: Acquired hypothyroidism Take by mouth 1 Tablet in the morning. (at least 30 min prior to breakfast or other meds). 90 Tablet 1 11/15/2023 Active Pancrelipase (Yvn-Genq-Ylnw) 51245-64311 UNIT Oral Capsule Delayed Release Particles (Creon 60725) 3 capsules by mouth with each meals up to three times daily 270 Capsule 3 11/16/2023 Active Sertraline HCl 100 MG Oral Tablet (Zoloft) Take 1 Tablet by mouth in the morning. 10 Tablet 12/18/2023 Active Ondansetron 4 MG Oral Tablet Disintegrating (Zofran)Indications:V omiting and diarrhea Place 1 Tablet on tongue every 8 hours as needed for Nausea. dissolve on tongue. 30 Tablet 5 01/18/2024 Active Docusate Sodium 100 MG Oral Capsule (Colace)Indications:D rug-induced constipation Take 1 Capsule by mouth in the morning. 60 Capsule 5 02/05/2024 Active Omeprazole 40 MG Oral Capsule Delayed Release (PriLOSEC)Indications :Gastroesophageal reflux disease without esophagitis Take 1 Capsule by mouth in the morning. 90 Capsule 2 02/21/2024 Active Simethicone 80 MG Oral Tablet ChewableIndications:E sophageal spasm,Gastroesophagea l reflux disease without esophagitis CHEW 1-2 TABLETS FOUR TIMES DAILY NEEDED FOR BLOATING/GAS 100 Tablet 5 02/21/2024 Active oxyCODONE-Acetaminoph en 10-325 MG Oral TabletIndications:Jennie sed fracture of neck of right femur with delayed healing, subsequent encounter Take 1 Tablet by mouth every 4 hours as needed for Pain, Moderate. 90 Tablet 03/05/2024 Active Eliquis 5 MG Oral Tablet (Apixaban)Indications :Paroxysmal atrial fibrillation (HCC) Take 1 Tablet by mouth in the morning and 1 Tablet before bedtime. 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 0 09/13/2011 Overview: ICD-10 update of inactive term Personal history of malignant neoplasm of skin 0 10/19/2010 Overview: 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), R forehead BCC 01/2012, Ramon L forehead 01/2010 (Efudex) documented as of this encounter (statuses as of 04/07/2024) Resolved Problems Problem Noted Date Diagnosed Date [...] artery 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 11/04/2018 07/25/2022 Acute pain of right knee 11/30/2017 Hx of actinic keratosis 06/23/2015 0607/2017 Irritable bowel syndrome 11/16/201208/2017 Abdominal pain 11/16/2012 08/04/2017 IBS (irritable bowel syndrome) 09/13/2011 02/21/2019 Anticoagulation management encounter 09/13/2011 11/04/2018 Dermatochalasis 06/22/2011 01/31/2018 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 0 12/23/2012 documented as of this encounter (statuses as of 04/07/2024) Immunizations Name Administration Dates Next Due COVID-19 mRNA, LNP-s, No Pre serve, 2-Dose Series (Doctor kinetic) 05/31/2021,10/20/2020,09/22/2020 Covid-19, Mrna, Lnp-s, Pf, B ivalent, 30 Mcg, IM, 12 yrs and above (Doctor kinetic) 05/16/2022 Pneumococcal Conjugate Vacc, 13 Valent (Prevnar) 05/16/2017 Pneumococcal Polysaccharide PPV23 (Pneumovax) 04/04/2013 Season Influenza, Quad, PF, Adjuvanted, 65+ Yrs, IM (FLUAD) 04/08/2020 Seasonal Influenza Vac., MDV , IM, 0.5 mL (Fluzone) 04/01/2011 Seasonal Influenza, Quadriva lent Hd (Fluzone Hd) 08/15/2023,06/09/2022,05/12/2021 Seasonal Influenza, Trivalen t, Adjuvanted, 65+ YRS, PF, (Fluad) 06/15/2019 TD, Preservative Free 09/13/2011 TDAP (age [...] the money to buy more. Never true 11/02/19 24 Within the past 12 months, t he food you bought just didn't last and you didn't have money to get more. Never true 11/02/2023 Childcare Answer Date Recorded Do you feel overwhelmed with taking care of a child, family member or friend? No 11/02/2023 Does your family need help f inding childcare? (Household - for ages 0-17 years) Not on file 11/02/2023 Clothing Answer Date Recorded Have you been unable to get clothing when it was really needed? No 11/02/2023 Is your family able to get c lothes or diapers when needed? (Household - for ages 0-17 years) Not on file 11/02/2023 Personal Safety Answer Date Recorded Do you feel unsafe or have concerns for your saf ety? No 11/02/2023 Do you have concerns for you r family's safety? (Household - for ages 0-17 years) Not on file 11/02/2023 Utilities Answer Date Recorded Do you have trouble paying y our heating, water, or electric bill? No 11/02/2023 Is your family able to pay t he heat, water, or electric bill? (Household - for ages 0-17 years) Not on file 11/02/2023 Does your family have access to good internet? (Household - for ages 0-17 years) Not on file 11/02/2023 Employment Status Answer Date Recorded Are you unemployed or without regular income? No 11/02/2023 Does the household have a re gular source of income? (Household - for ages 0-17 years) Not on file 11/02/2023 Social Connections Answer Date Recorded How often do you feel lonely or isolated from th ose around you? Never 11/02/2023 Financial Resource Strain Answer Date R ecorded Do you have any trouble payi ng for your medications, or do you think you might in the future? No 11/02/2023 Does your family have troubl e paying for medicine? (Household - for ages 0-17 years) Not on file 11/02/2023 Transportation Needs Answer Date Record ed READ ONLY Do you have troubl e getting a ride to medical visits or work? Never True 11/02/2023 Does your family have a hard time getting a ride to doctors visits? (Household - for ages 0-17 years) Not on file 11/02/2023 Has lack of transportation k ept you from medical appointments, meetings, work, or from getting things needed for daily living? Check all that apply. (Adult - for ages 18 years and over) Not on file 11/02/2023 Do you (or your family) have trouble finding or paying for a ride (transportation)? (Household - for ages 0-17 years) Not on file 11/02/2023 Housing Stability Answer Date Recorded Do you currently live in a s helter or have no steady place to sleep at night? No 11/02/2023 READ ONLY Do you think you a re at risk of becoming homeless? No 11/02/2023 Does your family worry about paying for your home or becoming homeless? (Household - for ages 0-17 years) Not on file 0 11/02/2023 Are you homeless or worried that you might be in the future? (Adult - for ages 18 years and over) Not on file Are you (or your family) madelaine eless or worried that you might be in the future? (Household - for ages 0-17 years) Not on file Food Insecurity Answer Date Recorded Do you need food for this week? No 11/02/2023 Are you able to get enough f ood for your family? (Household - for ages 0-17 years) Not on file 11/02/2023 Does your family need food t his week? (Household - for ages 0-17 years) Not on file 11/02/2023 Do you always have enough fo od for your family? (Household - for ages 0-17 years) Not on file 11/02/2023 Sex and Gender Information Value Date Recorded [...] Care Team (Late st Contact Info) Description 04/18/2024 12:00 PM EDT Office Visit Gastroenterology [address] [place] [address] Rina Nicole CRNP [address] [place] [address] 06/11/2024 10:20 AM EST Office Visit Podiatry [facility] [address] [facility] [place] [address] Viky Hughes DPM [address] [facility] [place] [address] 08/08/2024 11:00 AM EST Office Visit Cardiology, [facility] [address] [facility] [place] [address] Dulce Boudreaux CRNP [address] [facility] [place] [address] 10/06/2024 12:30 PM EDT Nurse Only Ancillary [address] [place] [address] [place], Nurse [address] [place] [address] Health Maintenance Due Date Last Done Comments *BISPHONATE OR OTHER ACCEPTABLE MEDICATION NEEDED FOR OSTEOPOROSIS (REFER TO SMARTSET #1146) 11/25/2022 COVID-19 Vaccine ( season) 2024 05/16/2022, 05/31/2021, 10/20/2020, Additional history exists Influenza Vaccine (FLU shot) (#1) 2024 08/15/2023, 06/09/2022, 05/17/2021, Additional history exists CKD PHOS USE SMARTSET 48310 03/13/202403/02, 03/12/2023, 03/11/2023, Additional history exists Albumin/Creatinine Ratio 05/14/2024 023, 06/27/2022, 09/02/2021, Additional history exists DTap/Tdap Vaccines (2 - Td or Tdap) 07/06/2024 07/06/2014, 09/13/2011 GFR 10/01/2024 04/02/2024, 01/31, 11/29/2023, Additional history exists Adult Wellness Visit 10/04/2024 10/05/2023, 10/02/2022, 09/29/2021, Additional history exists Depression Screening 10/04/2024 10/05/2023 DXA Scan 01/18/2025 01/18/2023, 05/0 11/2020, 07/28/2013 CKD HGB USE SMARTSET 62313 04/02/202504/02, 02/21/2024, 02/21/2024, Additional history exists TSH 04/02/2025 04/02/2024, 01/31, 11/29/2023, Additional history exists Pneumococcal Vaccine: 65+ Years Completed 05/16/2017, 04/04/2013 VITAMIN D LEVEL ONCE IN A LIFETIME-USE SMARTSET# 29803 Completed 02/21/2024, 10/09/2022, 03/10/2022, Additional history exists HPV (Gardasil) Vaccine Aged Out No lo nger eligible based on patient's age to complete this topic Hepatitis B Vaccine Aged Out No longe r eligible based on patient's age to complete this topic MENINGOCOCCAL (MENACTRA/MENVEO) Aged Out No longer eligible based on patient's age to complete this topic Zoster Vaccines Discontinued documented as of this encounter Medical Devices Not on filedocumented as of this encounter Advance Directives Documents on File Type Date Recorded Patient Supervisor Cytology Expl anation Advance Directives and Living Will 01/27/2023 Christiane Chong ADVANCE DIRECTIVE / LIVING WILL Power of Concession Attendant 01/27/2023 POWER OF A TTORNEY * Full Code (Latest Code Status on File) Date Activated Date Inactivated Comments 03/07/2023 6:25 PM 03/13/2023 3:14 PM Question Answer Comments Discussion of Advance Direct jean carlos occurred with: Not Discussed due to patient's condition * Full Code Date Activated Date Inactivated Comments 03/07/2023 1:25 PM 03/07/2023 6:25 PM Question Answer Comments Discussion of Advance Direct jean carlos occurred with: Not Discussed due to patient's condition * Full Code Date Activated Date Inactivated Comments 03/23/2020 12:13 PM 03/24/2020 2:09 PM This order reflects the patients wishes and were consensually agreed upon. Question Answer Comments Discussion of Advance Directives occurred with: Not Discussed * Full Code Date Activated Date Inactivated Comments 10/07/2014 8:27 AM 10/07/2014 5:02 PM This order ref lects the patients wishes and were consensually agreed upon. Question Answer Comments Discussion of Advance Directives occurred with: Patient Healthcare Agents on File Name Relationship Healthcare Agent Relationship Communication Christiane Clark Adult Child Health Care Agent (per Health Care Power of Concession Attendant document) [email or web address] Coral Chong Other - (no specific identity) First Alternate Health Care Agent (per Health Care Power of Concession Attendant document) [email or web address] Care Teams Senior Project Manager Relationship Specialty Start Date End Date Shonda Fields MD [address] [place] [address] [place] [address] PCP - General Family Medicine 02/21/19 documented as of this encounter
--- OUTSIDE RECORDS SUMMARY | 2024-04-08 07:27 | External Medical Summary | Summary of Care ---
Author Name Unknown Organization [facility] Address [address] [place] [address] Phone [phone] Care Team Providers Care Hard Candy Spinner Name Role Phone Shonda Fields MD Primary Care Prov ider Reason for Visit * Reason Onset Date Comments Pre-op Clearance 04/03/2024 Encounter Details Date Type Department Care Team (Late st Contact Info) Description 04/03/[address] [phone] Shonda Fields MD [address] [place], [place] [address] [address] Pre-op Clearance Allergies Active Allergy Reactions Criticality Noted Date [...] as of this encounter (statuses as of 04/04/2024) Medications Medication Sig Dispensed Refills Start Date [...] coronary artery stent placement,Coronary artery disease of [place] artery of [place] heart with stable angina pectoris (HCC) Place [...] meds). 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), R forehead BCC 01/2012, Ramon L forehead 01/2010 (Efudex) documented as of this encounter (statuses as of 04/04/2024) Resolved Problems Problem Noted Date Diagnosed Date [...] artery 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[place] heart with stable angina pectoris 11/04/2018 07/25/2022 Acute pain of right knee 11/30/2017 Hx of actinic keratosis 06/23/2015 0607/2017 Irritable bowel syndrome 11/16/201208/2017 Abdominal pain 11/16/2012 08/04/2017 IBS (irritable bowel syndrome) 09/13/2011 02/21/2019 Anticoagulation management encounter 09/13/2011 11/04/2018 Dermatochalasis 06/22/2011 01/31/2018 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 0 12/23/2012 documented as of this encounter (statuses as of 04/04/2024) Immunizations Name Administration Dates Next Due COVID-19 mRNA, LNP-s, No Pre serve, 2-Dose Series (Cuídate) 05/31/2021,10/20/2020,09/22/2020 Covid-19, Mrna, Lnp-s, Pf, B ivalent, 30 Mcg, IM, 12 yrs and above (Cuídate) 05/16/2022 Pneumococcal Conjugate Vacc, 13 Valent (Prevnar) [...] encounter Miscellaneous Notes * Telephone Encounter - Preston Melton, JOI - 04/04/2024 7:56 AM EDT Patient has been scheduled for the next available on: RETURN CARDIOLOGY at 11:00 AM (30 min)Arrive by 10:45 AM Thursday August 08, 2024 Appointment Provider:Dulce Boudreaux CRNP in CARDIOLOGY [facility] Patient uses [employer] for appt verification, will also send a letter. * Telephone Encounter - Pamella Barron RN - 04/03/2024 2:46 PM EDT Pt is aware to start the lasix for 5 days and that she is cleared for surgery, records faxed to Dr Duenas's office [phone] * Telephone Encounter - Vinita Peña RN - 04/03/2024 2:44 PM EDT Verified pre-op evaluation in Cardiology not necessary at this time. Scheduling- please cancel both upcoming pre-op appointments that were held. Please instead schedulefurther follow up with Dulce Boudreaux or Dr. Stephens, next available opening. * Telephone Encounter - Preston Melton OSA - 04/03/2024 2:35 PM EDT Vinita, please see message. Thank you. * Telephone Encounter - Shonda Fields MD - 04/03/2024 2:30 PM EDT I was able to review cardiac history with medical record retrieval specialist today and we feel she is not at increased risk and OK to proceed with surgery next week. My note from yesterday is addended, please fax to Dr Duenas's office and let patient know she is OK to proceed. * Telephone Encounter - Vinita Peña RN - 04/03/2024 1:36 PM EDT Preston, can you please ensure patient is on wait list for sooner opening as per below. Currently nothing available at , [facility], or [facility]. Will continue to watch for openings. * Telephone Encounter - Pamella Barron RN - 04/03/2024 1:27 PM EDT Cardiology please advise on KISHA appt. Pt was told on 03/21/24 she would have to reschedule her surgery, she has a hip fracture and needs this surgery on 04/08/24. See below * Telephone Encounter - Shonda Fields MD - 04/03/2024 12:48 PM EDT Please call patient and cardiology department. Her lab results are within normal limits, and she tested negative for flu, covid and RSV. The marker for heart failure is elevated however, which could be causing her leg swelling. I am recommending she take lasix 20mg daily x 5 days. Rx sent. Please contact cardiology to see if preop appt can be scheduled within 3 days. 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 I do NOT recommend postponing her surgery, currently scheduled 04/08/24. documented in this encounter Plan of Treatment Upcoming Encounters Date Type Department Care Team (Late st Contact Info) Description 04/18/2024 12:00 PM EDT Office Visit Gastroenterology [address] [place] [address] Rina Nicole CRNP [address] [address] 06/11/2024 10:20 AM EST Office Visit Podiatry [facility] [address] [place] [address] Viky Hughes, DPM [address] [facility] [place] [address] 08/08/2024 11:00 AM EST Office Visit Cardiology, [facility] [address] [place] [address] Dulce Boudreaux CRNP [address] [place] [address] 10/06/2024 12:30 PM EDT Nurse Only Ancillary [address] [place] [address] [place], Nurse [address] [place] [address] Health Maintenance Due Date Last Done Comments *BISPHONATE OR OTHER ACCEPTABLE MEDICATION NEEDED FOR OSTEOPOROSIS (REFER TO SMARTSET #1146) 11/25/2022 COVID-19 Vaccine ( season) 2024 05/16/2022, 05/31/2021, 10/20/2020, Additional history exists Influenza Vaccine (FLU shot) (#1) 2024 08/15/2023, 06/09/2022, 05/17/2021, Additional history exists CKD PHOS USE SMARTSET 93495 03/13/202403/02, 03/12/2023, 03/11/2023, Additional history exists Albumin/Creatinine Ratio 05/14/2024 023, 06/27/2022, 09/02/2021, Additional history exists DTap/Tdap Vaccines (2 - Td or Tdap) 07/06/2024 07/06/2014, 09/13/2011 GFR 10/01/2024 04/02/2024, 01/31, 11/29/2023, Additional history exists Adult Wellness Visit 10/04/2024 10/05/2023, 10/02/2022, 09/29/2021, Additional history exists Depression Screening 10/04/2024 10/05/2023 DXA Scan 01/18/2025 01/18/2023, 05/0 11/2020, 07/28/2013 CKD HGB USE SMARTSET 99471 04/02/202504/02, 02/21/2024, 02/21/2024, Additional history exists TSH 04/02/2025 04/02/2024, 01/31, 11/29/2023, Additional history exists Pneumococcal Vaccine: 65+ Years Completed 05/16/2017, 04/04/2013 VITAMIN D LEVEL ONCE IN A LIFETIME-USE SMARTSET# 65817 Completed 02/21/2024, 10/09/2022, 03/10/2022, Additional history exists [...] Documents on File Type Date Recorded 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 Advance Directives and Living Will 01/27/2023 Christiane Chong ADVANCE DIRECTIVE / LIVING WILL Power of Doctor Of Audiology 01/27/2023 POWER OF A TTORNEY * Full [...] Care Agent (per Health Care Power of Doctor Of Audiology document) [email or web address] Coral Chong Other - (no specific identity) First Alternate Health Care Agent (per Health Care Power of Doctor Of Audiology document) [email or web address] Care Teams Hard Candy Spinner Relationship Specialty Start Date End Date Shonda Fields MD [address] [place] [address] [place] [phone] PCP - General Family Medicine 02/21/19 documented as of this encounter
--- OUTSIDE RECORDS SUMMARY | 2024-04-08 07:28 | External Medical Summary | Summary of Care ---
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 90 Tablet 1 11/15/2023 Active Pancrelipase (Hkb-Kviu-Vrnn) 62652-67[address] UNIT Oral Capsule Delayed Release Particles (Creon 11179) 3 capsules by mouth with each meals [...] 24 Hour (Imdur)Indications:Co ronary artery disease of teller artery of teller heart with stable angina pectoris (HCC) TAKE [...] artery 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teller heart with stable angina pectoris 03/18/2020 Obesity, [...] artery 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teller heart with stable angina pectoris 11/04/2018 07/25/2022 [...] mRNA, LNP-s, No Pre serve, 2-Dose Series ([employer]) 05/31/2021,10/20/2020,09/22/2020 Covid-19, Mrna, Lnp-s, Pf, B ivalent, 30 Mcg, IM, 12 yrs and above ([employer]) 05/16/2022 Pneumococcal Conjugate Vacc, 13 Valent (Prevnar) [...] Miscellaneous Notes * Telephone Encounter - Preston Melton OSA - 04/04/2024 7:56 AM EDT Patient has been scheduled for the next available on: RETURN CARDIOLOGY at 11:00 AM (30 min)Arrive by 10:45 AM Thursday August 08, 2024 Appointment Provider:Dulce Boudreaux CRNP in CARDIOLOGY [facility] * Telephone Encounter - Pamella Barron RN - 04/03/2024 2:46 PM EDT Pt is aware to start the lasix for 5 days and that she is cleared for surgery, records faxed to Dr Duenas's office [phone] * Telephone Encounter - Vinita Peña RN [...] was able to review cardiac history with advanced developer today and we feel she is not [...] per below. Currently nothing available at , [facility], or [facility]. Will continue to watch for openings. * [...] 04/18/2024 12:00 PM EDT Office Visit Gastroenterology [address] [place] [address] Rina Nicole CRNP [address] [place] [address] 06/11/2024 10:20 AM EST Office Visit Podiatry [facility] [address] [place] [address] Viky Hughes DPM [address] [place], [place] [address] [address] 08/08/2024 11:00 AM EST Office Visit Cardiology, [facility] [address] [place] [address] Dulce Boudreaux CRNP [address] [place] [address] 10/06/2024 12:30 PM EDT Nurse Only Ancillary [address] [place] [address] [place], Nurse [address] [place] [address] Health Maintenance Due Date Last Done Comments *BISPHONATE OR OTHER ACCEPTABLE MEDICATION NEEDED FOR OSTEOPOROSIS (REFER TO SMARTSET #1146) 11/25/2022 COVID-19 Vaccine ( season) 2024 05/16/2022, 05/31/2021, 10/20/2020, Additional history exists Influenza Vaccine (FLU shot) (#1) 2024 08/15/2023, 06/09/2022, 05/17/2021, Additional history exists CKD PHOS USE SMARTSET 49224 03/13/202403/02, 03/12/2023, 03/11/2023, Additional history exists Albumin/Creatinine Ratio 05/14/2024 023, 06/27/2022, 09/02/2021, Additional history exists DTap/Tdap Vaccines (2 - Td or Tdap) 07/06/2024 07/06/2014, 09/13/2011 GFR 10/01/2024 04/02/2024, 01/31, 11/29/2023, Additional history exists Adult Wellness Visit 10/04/2024 10/05/2023, 10/02/2022, 09/29/2021, Additional history exists Depression Screening 10/04/2024 10/05/2023 DXA Scan 01/18/2025 01/18/2023, 05/0 11/2020, 07/28/2013 CKD HGB USE SMARTSET 90636 04/02/202504/02, 02/21/2024, 02/21/2024, Additional history exists TSH 04/02/2025 04/02/2024, 01/31, 11/29/2023, Additional history exists Pneumococcal Vaccine: 65+ Years Completed 05/16/2017, 04/04/2013 VITAMIN D LEVEL ONCE IN A LIFETIME-USE SMARTSET# [id number] Completed 02/21/2024, 10/09/2022, 03/10/2022, Additional history exists [...] Documents on File Type Date Recorded Patient Show Design Supervisor Expl anation Advance Directives and Living Will 01/27/2023 Christiane Chong ADVANCE DIRECTIVE / LIVING WILL Power of Ink Printer 01/27/2023 POWER OF A TTORNEY * Full [...] Care Agent (per Health Care Power of Ink Printer document) Coral Chong Other - (no specific identity) First Alternate Health Care Agent (per Health Care Power of Ink Printer document) [email or web address] Care Teams Loom Changeover Operator Relationship Specialty Start Date End Date Shonda Fields MD [address] [place] [address] [place] [address] PCP - General Family Medicine 02/21/19 documented as of this encounter
--- OUTSIDE RECORDS SUMMARY | 2024-04-08 07:28 | External Medical Summary | Summary of Care ---
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); Adenocarcinoma of pancreas (HCC); Senile osteoporosis; Preop examination; Hypothyroidism due to acquired atrophy of thyroid; Cardiac pacemaker in situ; Paroxysmal atrial fibrillation (HCC); HTN, goal below 140/90; Subclavian artery stenosis, right (HCC); Old myocardial infarction; Chronic kidney disease, stage 3a (HCC); Acute pharyngitis, unspecified etiology Allergies Active Allergy Reactions Criticality Noted Date [...] as of this encounter (statuses as of 04/03/2024) Medications Medication Sig Dispensed Refills Start Date [...] coronary artery stent placement,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 90 Tablet 1 11/15/2023 Active Pancrelipase (Ozy-Umvx-Axzy) [id number] UNIT Oral Capsule Delayed Release Particles (Creon 62092) 3 capsules by mouth with each meals [...] 24 Hour (Imdur)Indications:Co ronary artery disease of wrangell artery of wrangell heart with stable angina pectoris (HCC) TAKE 2 TABLETS IN THE MORNING AND 1 TABLET IN THE EVENING 270 Tablet 3 03/19/2024 Active documented as of this encounter (statuses as of 04/03/2024) Active Problems Problem Noted Date Diagnosed Date [...] artery 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wrangell heart with stable angina pectoris 03/18/2020 Obesity, [...] 09/13/2011 Dyslipidemia, goal LDL below 70 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 0 09/13/2011 Overview: ICD-10 update of inactive term Personal history of malignant neoplasm of skin 0 10/19/2010 Overview: 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), R forehead BCC 01/2012, Ramon L forehead 01/2010 (Efudex) documented as of this encounter (statuses as of 04/03/2024) Resolved Problems Problem Noted Date Diagnosed Date [...] artery 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wrangell heart with stable angina pectoris 11/04/2018 07/25/2022 Acute pain of right knee 11/30/2017 Hx of actinic keratosis 06/23/2015 06/0 07/2017 Irritable bowel syndrome 11/16/201208/2017 Abdominal pain 11/16/2012 08/04/2017 IBS (irritable bowel syndrome) 09/13/2011 02/21/2019 Anticoagulation management encounter 09/13/2011 11/04/2018 Dermatochalasis 06/22/2011 01/31/2018 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 0 12/23/2012 documented as of this encounter (statuses as of 04/03/2024) Immunizations Name Administration Dates Next Due COVID-19 mRNA, LNP-s, No Pre serve, 2-Dose Series ([employer]) 05/31/2021,10/20/2020,09/22/2020 Covid-19, Mrna, Lnp-s, Pf, B ivalent, [...] Sign Reading Time Taken Comments Blood Pressure 148/80 04/02/2024 11:41 AM EDT Pulse 98 04/02/2024 11:41 AM EDT Temperature 36.4 C (97.6 F) 04/02/2024 11:41 AM E DT Respiratory Rate 16 04/02/2024 11:41 AM EDT Oxygen Saturation 95% 04/02/2024 11:41 AM EDT Inhaled Oxygen Concentration - - Weight 72.6 kg (160 lb) 04/02/2024 11:41 AM EDT Height 170.2 cm (5' 7") 04/02/2024 11:41 AM EDT Body Mass Index 25.06 04/02/2024 11:41 AM EDT documented in this encounter Functional [...] * Joshua Oseguera, Shonda Mascorro MD - 04/02/2024 11:48 AM EDT Subjective Milena Lozoya is a 83 year old female. Chief Complaint Patient presents with Re-Check Outpatient Testing HPI: Follow up hip fracture/ pain, recent h/o pancreatic cancer s/p Whipple, . Ortho. Recent h/o right hip fracture s/p ORIF, but with continuous severe pain greatly limiting herADLs. Has appt next week 04/08 for hip replacement surgery but needs cardiac clearance first. CV. CAD s/p CABG x 5, Old LA, Afib, Sinus node dysfunction with pacemaker. Dr Stephens is her primary signwriter. Oncology. Recent h/o pancreatic cancer, s/p Whipple procedure with good recovery. She declined chemotherapy. URI. Does have mild sore throat and cough at night. Denies SOB and fevers. 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 HTN, goal below 140/90 Sinus node dysfunction (HCC) Disc disorder of lumbar region Pancreatic cyst Paroxysmal atrial fibrillation (HCC) Old myocardial infarction Adverse reaction to statin medication Adrenal insufficiency (HCC) Tremors of nervous system Hyperparathyroidism, primary (HCC) Obesity, Class I, BMI 30.0-34.9 (see actual BMI) Adjustment disorder with anxious mood 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) Hypertensive kidney disease with stage 3a chronic kidney disease Statin intolerance Esophageal spasm High risk for fracture due to osteoporosis by DEXA scan Chronic kidney disease, stage 3a (HCC) Greater trochanteric bursitis of left hip Senile osteoporosis Trigger middle finger of left hand Carotid stenosis, non-symptomatic, bilateral Aortic ectasia, abdominal (HCC) Subclavian artery stenosis, right (HCC) Adenocarcinoma of pancreas (HCC) Post-op pain Fracture of neck of right femur (HCC) Closed fracture distal radius and ulna, right, initial encounter Current Outpatient Medications Medication Sig Dispense Refill [...] day. Mixed with liquid. 90 Packet 1 Dicyclomine HCl 10 MG Oral Capsule (Bentyl) Take 1 Capsule by mouth 4 times a day as needed for Indigestion. For abdominal pain 120 Capsule 5 Metoprolol Succinate ER 50 MG [...] FOR ANXIETY OR INSOMNIA 30 Tablet 2 Levothyroxine Sodium 50 MCG Oral Tablet (Levoxyl) Take by mouth 1 Tablet in the morning. (at least 30 min prior to breakfast or other meds). 90 Tablet 1 Pancrelipase (Wja-Vzwr-Acso) [id number] UNIT Oral Capsule Delayed Release Particles (Creon 90167) 3 capsules by mouth with each meals up to three times daily 270 Capsule 3 Sertraline HCl 100 MG Oral Tablet (Zoloft) Take 1 Tablet by mouth in the morning. 10 Tablet 0 Ondansetron 4 MG Oral Tablet Disintegrating (Zofran) Place 1 Tablet on tongue every 8 hours as needed for Nausea. dissolve on tongue. 30 Tablet 5 Docusate Sodium 100 MG Oral Capsule (Colace) Take 1 Capsule by mouth in the morning. 60 Capsule 5 Omeprazole 40 MG Oral Capsule Delayed Release (PriLOSEC) Take 1 Capsule by mouth in the morning. 90Capsule 2 Simethicone 80 MG Oral Tablet Chewable CHEW 1-2 TABLETS FOUR TIMES DAILY NEEDED FOR BLOATING/AQK629 Tablet 5 oxyCODONE-Acetaminophen 10-325 MG Oral Tablet Take 1 Tablet by mouth every 4 hours as needed for Pain, Moderate. 90 Tablet 0 Eliquis 5 MG Oral Tablet (Apixaban) Take 1 Tablet by mouth in the morning and 1 Tablet before bedtime. 180 Tablet 3 Isosorbide Mononitrate ER 60 MG Oral Tablet Extended Release 24 Hour (Imdur) TAKE 2 TABLETS IN THE MORNING AND 1 TABLET IN THE EVENING 270 Tablet 3 No current facility-administered medications for this visit. [...] VOMITING,ACHY Zetia [Ezetimibe] Muscle pain Objective BP 148/80 | Pulse 98 | Temp 36.4 C (97.6 F) | Resp 16 | Ht 1.702 m (5' 7") | Wt 72.6 kg (160 lb) | SpO2 95% | BMI 25.06 kg/m | BSA 1.85 m Physical Exam Constitutional: Appearance: Normal appearance. Cardiovascular: Rate and Rhythm: Normal rate and regular rhythm. Pulses: Normal pulses. Heart sounds: Normal heart sounds. Pulmonary: Effort: Pulmonary effort is normal. Breath sounds: Normal breath sounds. Musculoskeletal: General: Tenderness present. Right lower leg: Edema present. Left lower leg: Edema present. Comments: + right hip tenderness, limited ROM 1+ bilat LE edema Neurological: Mental Status: She is alert. 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) - CBC; Future; Expected date: 04/02/2024 - COMPREHENSIVE METABOLIC PANEL; Future; Expected date: 04/02/2024 - PT INR; Future; Expected date: 04/02/2024 - EKG - CBC - COMPREHENSIVE METABOLIC PANEL - PT INR Adenocarcinoma of pancreas (HCC) Senile osteoporosis Preop examination - CBC; Future; Expected date: 04/02/2024 - COMPREHENSIVE METABOLIC PANEL; Future; Expected date: 04/02/2024 - PT INR; Future; Expected date: 04/02/2024 - EKG - CBC - COMPREHENSIVE METABOLIC PANEL - PT INR Hypothyroidism due to acquired atrophy of thyroid - TSH WITH FREE T4 IF INDICATED; Future; Expected date: 04/02/2024 - TSH WITH FREE T4 IF INDICATED Cardiac pacemaker in situ - BNP, NT-PRO; Future; Expected date: 04/02/2024 - BNP, NT-PRO Paroxysmal atrial fibrillation (HCC) - CBC; Future; Expected date: 04/02/2024 - COMPREHENSIVE METABOLIC PANEL; Future; Expected date: 04/02/2024 - PT INR; Future; Expected date: 04/02/2024 - EKG - BNP, NT-PRO; Future; Expected date: 04/02/2024 - CBC - COMPREHENSIVE METABOLIC PANEL - PT INR - BNP, NT-PRO HTN, goal below 140/90 - EKG Subclavian artery stenosis, right (HCC) Old myocardial infarction - BNP, NT-PRO; Future; Expected date: 04/02/2024 - BNP, NT-PRO Chronic kidney disease, stage 3a (HCC) - COMPREHENSIVE METABOLIC PANEL; Future; Expected date: 04/02/2024 - COMPREHENSIVE METABOLIC PANEL Acute pharyngitis, unspecified etiology - INFLUENZA A/B RSV SARS-COV2,PCR; Future; Expected date: 04/02/2024 - INFLUENZA A/B RSV SARS-COV2,PCR Recommend preoperative testing as above She is unable to get cardiology appointment prior to her surgery date - will confer with her signwriter about evaluation for surgery Shonda Chakraborty MD Apr 03, 2024 I reviewed her pre-operative studies and recent cardiac studies with cardiology, and we agreed she is not at increased risk for complications related to hip replacement surgery and can proceed with surgery next week. Shonda Chakraborty MD documented in this encounter Procedure Notes * Simon Moore DO - 04/02/2024 12:30 PM EDTAssociated Order(s): EKG REASON FOR STUDY: PRE-OP FOR HIP FX CONCLUSIONS: Electronic atrial pacemaker Cannot rule out Anterior infarct (cited on or before 19-Nov-2020) ST & T wave abnormality, consider inferior ischemia Abnormal ECG When compared with ECG of 19-Nov-2020 14:36, Inverted T waves have replaced nonspecific T wave abnormality in Lateral leads Ventricular Rate: 84 Atrial Rate: 84 VT Interval: 184 QRS Duration: 124 QT/QTc: 392/463 ms P-R-T [place]: 23 : 74 : -81 degrees documented in this encounter Nursing Notes * Pamella Barron RN - 04/02/2024 11:40 AM EDT 4 week follow up, pt is unable to get a cardiology appt for clearance until end of May. Surgery is to be on 04-08-24. Had a cardiology study done 02/20/24, From 03/19 phone encounter with Fiona Joshua: I spoke to patient she did see Dr. Cavazos and he spoke directly to Dr. Duenas and patient is scheduled for surgery at [facility] on 04/08. Patient will most likely be in for a few days and then to rehab. Patient states her daughter will still be home to take care of her . I did discuss the importance of taking care of her self and doing what they recommend so she gets better. Patient states she will because she needs to, she said she can't continue in this pain. Patient will call if she needs anything else from us. documented in this encounter Plan of Treatment Upcoming Encounters Date Type Department Care Team (Late st Contact Info) Description 04/17/2024 11:00 AM EDT Office Visit Cardiology, [facility] [address] [place] [phone] Dulce Boudreaux CRNP [address] [place] [address] 04/18/2024 12:00 PM EDT Office Visit Gastroenterology [address] [place] [address] Rina Nicole CRNP [address] [place] [address] 05/28/2024 10:00 AM EST Office Visit Cardiology, [facility] [address] [place] [address] Lexi Mendiola PA-C [address] [place] [address] 06/11/2024 10:20 AM EST Office Visit Podiatry [facility] [address] [facility] [place] [address] Viky Hughes DPM [address] [place] [address] 10/06/2024 12:30 PM EDT Nurse Only Ancillary [address] [place] [address] Movjeanineey, Nurse [address] [place] [address] Health Maintenance Due Date Last Done Comments *BISPHONATE OR OTHER ACCEPTABLE MEDICATION NEEDED FOR OSTEOPOROSIS (REFER TO SMARTSET #1146) 11/25/2022 COVID-19 Vaccine ( season) 2024 05/16/2022, 05/31/2021, 10/20/2020, Additional history exists Influenza Vaccine (FLU shot) (#1) 2024 08/15/2023, 06/09/2022, 05/17/2021, Additional history exists CKD PHOS USE SMARTSET 83978 03/13/202403/02, 03/12/2023, 03/11/2023, Additional history exists Albumin/Creatinine Ratio 05/14/2024 023, 06/27/2022, 09/02/2021, Additional history exists DTap/Tdap Vaccines (2 - Td or Tdap) 07/06/2024 07/06/2014, 09/13/2011 GFR 10/01/2024 04/02/2024, 01/31, 11/29/2023, Additional history exists Adult Wellness Visit 10/04/2024 10/05/2023, 10/02/2022, 09/29/2021, Additional history exists Depression Screening 10/04/2024 10/05/2023 DXA Scan 01/18/2025 01/18/2023, 05/0 11/2020, 07/28/2013 CKD HGB USE SMARTSET 16538 04/02/202504/02, 02/21/2024, 02/21/2024, Additional history exists TSH 04/02/2025 04/02/2024, 01/31, 11/29/2023, Additional history exists Pneumococcal Vaccine: 65+ Years Completed 05/16/2017, 04/04/2013 VITAMIN D LEVEL ONCE IN A LIFETIME-USE SMARTSET# [id number] Completed 02/21/2024, 10/09/2022, 03/10/2022, Additional history exists [...] Procedure Name Priority Date/Time Associated Diagnosis Comments INFLUENZA A/B RSV SARS-COV2,PCR Routine 04/02/2024 12:39 PM EDT Acute pharyngitis, unspecified etiology TSH WITH FREE T4 IF INDICATED Routine 04/02/2024 12:33 PM EDT Hypothyroidism due to acquired atrophy of thyroid BNP (NT-PROBNP) Routine 04/02/2024 12:33 PM EDT Cardiac pacemaker in situ Paroxysmal atrial fibrillation (HCC) Old myocardial infarction COMPREHENSIVE METABOLIC PANEL Routine 04/02/2024 12:33 PM EDT Closed fracture of neck of right femur with routine healing, subsequent encounter 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) Preop examination Paroxysmal atrial fibrillation (HCC) Chronic kidney disease, stage 3a (HCC) PT INR Routine 04/02/2024 12:33 PM EDT Closed fracture of neck of right femur with routine healing, subsequent encounter 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) Preop examination Paroxysmal atrial fibrillation (HCC) CBC Routine 04/02/2024 12:33 PM EDT Closed fracture of neck of right femur with routine healing, subsequent encounter 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) Preop examination Paroxysmal atrial fibrillation (HCC) VT ECG ROUTINE ECG W/LEAST 12 LDS W/I&R Routine 04/02/2024 12:30 PM EDT Closed fracture of neck of right femur with routine healing, subsequent encounter 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 This express test was developed and its performance characteristics determined by [employer]. It has not been cleared or approved by the U.S. Food and Drug Administration (FDA). FDA does not require this test to go thru premarket FDA review. This test is used for clinical purposes. It should not be regarded as investigational or for research. This laboratory is certified under the Clinical Laboratory Improvement Amendments (CLIA) as qualified to perform high complexity clinical laboratory testing. This test is a nucleic acid amplification test (NAAT), a reverse transcriptase polymerase chain reaction (RT-PCR) test, or a Centers for Disease Control- acceptable equivalent. The test is performed in a high complexity Clinical Laboratory Improvement Amendments-(CLIA) certified laboratory. The test is acceptable for SARS-CoV-2 diagnosis, surveillance, and travel within the [place] and to most countries. Please check with local testing authorities about requirements before travel. The validation of bronchial specimens, tracheal aspirates, and sputum for this assay was developed and performance characteristics determined by [employer]. The validation of alternate specimen types has not been cleared or approved by the U.S. Food and Drug Administration (FDA). It has been determined that such clearance is not necessary. Influenza A PCR Result Negative Negative 04/03/2024 12:22 AM EDT [facility] Comment:No Influenza A RNA d etected by PCR (amplified probe) Influenza B PCR Result Negative Negative 04/03/2024 12:22 AM EDT [facility] Comment:No Influenza B RNA d etected by PCR (amplified probe) RSV PCR Result Negative Negative 04/03/2024 12:22 AM EDT [facility] Comment:No Respiratory Syncy tial Virus RNA detected by PCR (amplified probe) Upper Respiratory Nasopharyngeal swab / Unknown Non-blood Collection / Unknown 04/02/2024 12:39 PM EDT 04/02/2024 12:40 PM EDT Shonda Oseguera MD LAB MICRO - GENERAL ORDERABLES Performing Organization Address City/[facility]/ZIP Co de Phone Number [facility] [address] [place] [address] * (ABNORMAL) BNP, NT-PRO (04/02/2024 12:33 PM EDT) BNP, NT-Pro 3,021(H) <300 pg/mL 04/03/2024 5:12 AM EDT [facility] Blood Venous blood specimen / Unknown Venipuncture / Unknown 04/02/2024 12:33 PM EDT 04/02/2024 12:33 PM EDT Narrative [facility] - 04/03/2024 5:12 AM EDT Exclude Heart Failure: <300 pg/mL Diagnose Heart Failure: Age <50 yr: >450 pg/mL 50-75 yr: >900 pg/mL >75 yr: >1800 pg/mL GFR is 30-59 mL/min: >1200 pg/mL or Age-adjusted values GFR <30 mL/min: do not use, not reliable Prognostic threshold: 1000 pg/mL Shonda Oseguera MD LAB BLOOD ORDERABLES Performing Organization Address [facility] Co de Phone Number [facility] [address] [place] [address] * TSH WITH FREE T4 IF INDICATED (04/02/2024 12:33 PM EDT) Pathologist [facility] TSH 3.71 0.27 - 4.20 uIU/mL 04/03/2024 5:12 AM EDT [facility] Blood Venous blood specimen / Unknown Venipuncture / Unknown 04/02/2024 12:33 PM EDT 04/02/2024 12:33 PM EDT Shonda Oseguera MD LAB BLOOD ORDERABLES Performing Organization Address City/[facility]/ZIP Co de Phone Number [facility] [address] [place] [address] * (ABNORMAL) PT INR (04/02/2024 12:33 PM EDT) Prothrombin Time 16.1(H) 11.6 - 15.2 seconds 04/02/2024 11:46 PM EDT [facility] INR 1.3(H) 0.8 - 1.2 04/02/2024 11:46 PM EDT [facility] Blood Venous blood specimen / Unknown Venipuncture / Unknown 04/02/2024 12:33 PM EDT 04/02/2024 12:33 PM EDT Narrative [facility] - 04/02/2024 11:46 PM EDT Warfarin Therapy INR: 2.0-3.0 conventional anticoagulation INR: 2.5-3.5 high intensity anticoagulation Shonda Oseguera MD LAB BLOOD ORDERABLES [facility] [address] [place] [address] * (ABNORMAL) COMPREHENSIVE METABOLIC PANEL (04/02/2024 12:33 PM EDT) BUN 22(H) 6 - 20 mg/dL 04/03/2024 4:26 AM EDT [facility] CREATININE 0.8 0.5 - 1.0 mg/dL 04/03/2024 4:26 AM EDT [facility] EGFR 69 >=60 mL/min 04/03/2024 4:26 AM EDT [facility] Comment:eGFR is calculated b ased on the CKD-EPI 2020 equation. SODIUM 141 135 - 146 mmol/L 04/03/2024 4:26 AM EDT LABORATORY C POTASSIUM 3.7 3.5 - 5.1 mmol/L 04/03/2024 4:26 AM EDT LABORATORY C CHLORIDE 104 98 - 107 mmol/L 04/03/2024 4:26 AM EDT LABORATORY C CO2 26 22 - 32 mmol/L 04/03/2024 4:26 AM EDT [facility] ANION GAP 11 7 - 15 mmol/L 04/03/2024 4:26 AM EDT [facility] GLUCOSE 102 70 - 120 mg/dL 04/03/2024 4:26 AM EDT [facility] Albumin 3.9 3.8 - 5.0 g/dL 04/03/2024 4:26 AM EDT [facility] AST 19 10 - 35 U/L 04/03/2024 4:26 AM EDT [facility] Alkaline Phosphatase 94 35 - 130 U/L 04/03/2024 4:26 AM EDT [facility] Bilirubin, Total 0.3 <=1.2 mg/dL 04/03/2024 4:26 AM EDT [facility] CALCIUM 9.8 8.4 - 10.2 mg/dL 04/03/2024 4:26 AM EDT [facility] Protein 6.0 6.0 - 8.3 g/dL 04/03/2024 4:26 AM EDT [facility] ALT 17 10 - 35 U/L 04/03/2024 4:26 AM EDT [facility] Blood Venous blood specimen / Unknown Venipuncture / Unknown 04/02/2024 12:33 PM EDT 04/02/2024 12:33 PM EDT Shonda Oseguera MD LAB BLOOD ORDERABLES [facility] [address] [place] [address] * CBC (04/02/2024 12:33 PM EDT) WBC 6.09 4.00 - 10.80 K/uL 04/03/2024 12:21 AM EDT [facility] RBC 3.83 3.85 - 5.15 M/uL 04/03/2024 12:21 AM EDT [facility] HGB 12.0 12.0 - 15.3 g/dL 04/03/2024 12:21 AM EDT [facility] HCT 37.4 36.0 - 45.2 % 04/03/2024 12:21 AM EDT [facility] MCV 97.7 81.5 - 97.5 fL 04/03/2024 12:21 AM EDT [facility] MCH 31.3 27.0 - 34.0 pg 04/03/2024 12:21 AM EDT [facility] MCHC 32.1 32.0 - 36.0 g/dL 04/03/2024 12:21 AM EDT [facility] RDW 13.6 11.5 - 15.5 % 04/03/2024 12:21 AM EDT [facility] PLT 189 140 - 400 K/uL 04/03/2024 12:21 AM EDT [facility] MPV 11.4 6.6 - 11.1 fL 04/03/2024 12:21 AM EDT [facility] nRBCs 0 <=0 /100 WBCs 04/03/2024 12:21 AM EDT [facility] Blood Venous blood specimen / Unknown Venipuncture / Unknown 04/02/2024 12:33 PM EDT 04/02/2024 12:33 PM EDT Shonda Oseguera MD LAB BLOOD ORDERABLES Performing Organization Address [facility] Co de Phone Number [facility] [address] [place] [address] * EKG (04/02/2024 12:30 PM EDT) 04/02/2024 12:3 0 PM EDT Narrative Procedure Note Simon Moore DO - 04/02/2024 12:30 PM EDT REASON FOR STUDY: PRE-OP FOR HIP FX CONCLUSIONS: Electronic atrial pacemaker Cannot rule out Anterior infarct (cited on or before 19-Nov-2020) ST & T wave abnormality, consider inferior ischemia Abnormal ECG When compared with ECG of 19-Nov-2020 14:36, Inverted T waves have replaced nonspecific T wave abnormality in [place] Ventricular Rate: 84 Atrial Rate: 84 VT Interval: 184 QRS Duration: 124 QT/QTc: 392/463 ms P-R-T [place]: 23 : 74 : -81 degrees Shonda Oseguera MD EKG Performing Organization Address City/[facility]/ZIP Co de Phone Number [facility] documented in this encounter Visit Diagnoses Diagnosis Closed fracture of neck of right femur with routine healing, subsequent encounter- Primary 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) Adenocarcinoma of pancreas (HCC) Malignant neoplasm of pancreas, part unspecified Senile osteoporosis Preop examination Preoperative examination, unspecified Hypothyroidism due to acquired atrophy of thyroid Cardiac pacemaker in situ Paroxysmal atrial fibrillation (HCC) Atrial fibrillation HTN, goal below 140/90 Unspecified essential hypertension Subclavian artery stenosis, right (HCC) Atherosclerosis of other specified arteries Old myocardial infarction Chronic kidney disease, stage 3a (HCC) Acute pharyngitis, unspecified etiology documented in this encounter Advance Directives Documents on File Type Date Recorded 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 Expl anation Advance Directives and Living Will 01/27/2023 Christiane Chong ADVANCE DIRECTIVE / LIVING WILL Power of Harness Repairer 01/27/2023 POWER OF A TTORNEY * Full [...] Care Agent (per Health Care Power of Harness Repairer document) Coral Chong Other - (no specific identity) First Alternate Health Care Agent (per Health Care Power of Harness Repairer document) [email or web address] Care Teams Water Filterer Helper Relationship Specialty Start Date End Date Shonda Fields MD [address] [place] [address] [place] [phone] PCP - General Family Medicine 02/21/19 documented as of this encounter
--- OUTSIDE RECORDS SUMMARY | 2024-04-08 07:28 | External Medical Summary | Summary of Care ---
Author Name Unknown Organization [facility] Address [address] [place] [address] Phone [phone] Care Team Providers Care Concrete Saw Operator Name Role Phone Shonda Fields MD Primary Care Prov ider Reason for Visit * Reason Onset Date Comments Advice 04/03/2024 Encounter Details Date Type Department Care Team (Late st Contact Info) Description 04/03/2024 Telephone Cardiology, [facility] [address] [place] [address] Victoriano Stephens, [address] [place] [address] Advice Allergies Active Allergy Reactions Criticality Noted [...] coronary artery stent placement,Coronary artery disease of [place] artery of [place] heart with stable angina pectoris (HCC) [...] meds). 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 Patient is tentatively scheduled for surgical intervention for a displaced fracture of the right femoral neck next week with Dr. Duenas of Orthopedics. She had sustained a fall in September, and hashad progressive pain and ambulatory dysfunction. The patient has a history of chronic stable angina, with remote CABG x5 in 2005. She underwent dual-chamber permanent pacemaker in 2011 with generator change in 2022. She had since undergone Whipple procedure at [facility] on 03/07/2023 and had declined chemotherapy. Per my discussion with patient describes stable cardiac signs and symptoms at time of primary care visit poor preoperative evaluation on 04/02/2024. Waiting up to her Whipple procedure she had a nonischemic response to nuclear stress testing in December,. An echocardiogram was performed in September, at [facility] revealing mild concentric left ventricular hypertrophy with moderate sized inferior and posterior wall motion abnormality consistent with previously known scar in this territory visualized as him a nuclear stress testing in December,, ejection fraction noted to be at the lower limit of normal 50 to 55%, with moderate mitral regurgitation mild tricuspid regurgitation. EKG performed 04/02/2024 and interpreted independently revealed sinus rhythm with atrial pacing, [place] tribe QRS complexes, age undetermined anterior infarct noted ST T wave abnormality inferior and lateral leads relatively unchanged compared to Oct, 2020 per my personal comparison. Also relatively unchanged compared to previous EKG performed at [facility] in September,. Recent remote Medtronic pacemaker interrogation revealed stable findings, stable generator longevity. Recent lab work reveals stable kidney function, mild elevation in the NT proBNP level noted at 3021picogram per milliliter without recent orthopnea. Orthopedic Surgery felt to be indicated for pain control and difficulty ambulating. Patient felt to be stable to proceed without further cardiac testing. Victoriano Stephens DO documented in this encounter Plan of Treatment Upcoming Encounters Date Type Department Care Team (Late st Contact Info) Description 04/17/2024 11:00 AM EDT Office Visit Cardiology, [facility] [address] [place] [address] Dulce Boudreaux CRNP [address] [place] [address] 04/18/2024 12:00 PM EDT Office Visit Gastroenterology [address] [place] [address] Rina Nicole CRNP [address] [facility] [place] [address] 05/28/2024 10:00 AM EST Office Visit Cardiology, [facility] 132 [facility] [place] [address] Lexi Mendiola PA-C [address] [place] [address] 06/11/2024 10:20 AM EST Office Visit Podiatry [facility] 132 [facility] [place] [address] Viky Hughes DPM [address] [place] [address] 10/06/2024 12:30 PM EDT Nurse Only Ancillary [address] [place] [address] [place], Nurse Annual [address] [place] [address] Health Maintenance Due Date Last Done Comments *BISPHONATE OR OTHER ACCEPTABLE MEDICATION NEEDED FOR OSTEOPOROSIS (REFER TO SMARTSET #1146) 11/25/2022 COVID-19 Vaccine ( season) 2024 05/16/2022, 05/31/2021, 10/20/2020, Additional history exists Influenza Vaccine (FLU shot) (#1) 2024 08/15/2023, 06/09/2022, 05/17/2021, Additional history exists CKD PHOS USE SMARTSET 81044 03/13/202403/02, 03/12/2023, 03/11/2023, Additional history exists Albumin/Creatinine Ratio 05/14/2024 023, 06/27/2022, 09/02/2021, Additional history exists DTap/Tdap Vaccines (2 - Td or Tdap) 07/06/2024 07/06/2014, 09/13/2011 GFR 10/01/2024 04/02/2024, 01/31, 11/29/2023, Additional history exists Adult Wellness Visit 10/04/2024 10/05/2023, 10/02/2022, 09/29/2021, Additional history exists Depression Screening 10/04/2024 10/05/2023 DXA Scan 01/18/2025 01/18/2023, 05/0 11/2020, 07/28/2013 CKD HGB USE SMARTSET 38678 04/02/202504/02, 02/21/2024, 02/21/2024, Additional history exists TSH 04/02/2025 04/02/2024, 01/31, 11/29/2023, Additional history exists Pneumococcal Vaccine: 65+ Years Completed 05/16/2017, 04/04/2013 VITAMIN D LEVEL ONCE IN A LIFETIME-USE SMARTSET# [id number] Completed 02/21/2024, 10/09/2022, 03/10/2022, Additional history exists [...] Documents on File Type Date Recorded Patient Pattern And Chain Maker Expl anation Advance Directives and Living Will 01/27/2023 Christiane Chong ADVANCE DIRECTIVE / LIVING WILL Power of Commission Clerk 01/27/2023 POWER OF A TTORNEY * Full [...] Care Agent (per Health Care Power of Commission Clerk document) [email or web address] Coral Chong Other - (no specific identity) First Alternate Health Care Agent (per Health Care Power of Commission Clerk document) che Care Teams Concrete Saw Operator Relationship Specialty Start Date End Date Shonda Fields MD [address] [place] [address] [place] [address] PCP - General Family Medicine 02/21/19 documented as of this encounter
--- OUTSIDE RECORDS SUMMARY | 2024-04-08 07:28 | External Medical Summary | Summary of Care ---
Author Name Unknown Organization [facility] Address [address] [place] [address] Phone [phone] Care Team Providers Care Archeology Professor Name Role Phone Shonda Fields MD Primary Care Prov ider Reason for Visit * Reason Onset Date Comments Pre-op Clearance 04/03/2024 Encounter Details Date Type Department Care Team (Late st Contact Info) Description 04/03/[address] [phone] Shonda Fields MD [address] [place], [place] [address] [address] Pre-op Clearance Allergies Active Allergy Reactions Criticality [...] coronary artery stent placement,Coronary artery disease of [place] artery of [place] heart with stable angina pectoris (HCC) Place [...] meds). 90 Tablet 1 11/15/2023 Active Pancrelipase (Zwq-Ihbd-Ovhr) [id number] UNIT Oral Capsule Delayed Release Particles (Creon 24679) 3 capsules by mouth with each meals [...] 24 Hour (Imdur)Indications:Co ronary artery disease of [place] artery of [place] heart with stable angina pectoris (HCC) TAKE [...] artery 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[place] heart with stable angina pectoris 03/18/2020 Obesity, [...] artery 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[place] heart with stable angina pectoris 11/04/2018 07/25/2022 [...] mRNA, LNP-s, No Pre serve, 2-Dose Series ([employer]ights) 05/31/2021,10/20/2020,09/22/2020 Covid-19, Mrna, Lnp-s, Pf, B ivalent, 30 Mcg, IM, 12 yrs and above (Networked Insights) 05/16/2022 Pneumococcal Conjugate Vacc, 13 Valent (Prevnar) [...] encounter Miscellaneous Notes * Telephone Encounter - Pamella Barron RN - 04/03/2024 2:46 PM EDT Pt is aware to start the lasix for 5 days and that she is cleared for surgery, records faxed to Dr Duenas's office [phone] * Telephone Encounter - Vinita Peña RN [...] was able to review cardiac history with card stripper today and we feel she is not [...] per below. Currently nothing available at , [facility], or [facility]. Will continue to watch for openings. * [...] 04/17/2024 11:00 AM EDT Office Visit Cardiology, [facility] [address] [place] [address] Dulce Boudreaux CRNP [address] [place] [address] 04/18/2024 12:00 PM EDT Office Visit Gastroenterology [address] [place] [address] Rina Nicole CRNP [address] [place] [address] 05/28/2024 10:00 AM EST Office Visit Cardiology, [facility] [address] [place] [address] Lexi Mendiola PA-C [address] [place] [address] [place] [address] 06/11/2024 10:20 AM EST Office Visit Podiatry [facility] [address] [place] [address] Viky Hughes, DPM [address] [facility] [address] 10/06/2024 12:30 PM EDT Nurse Only Ancillary [address] [place] [address] [place], Nurse [address] [place] [address] Health Maintenance Due Date Last Done Comments *BISPHONATE OR OTHER ACCEPTABLE MEDICATION NEEDED FOR OSTEOPOROSIS (REFER TO SMARTSET #1146) 11/25/2022 COVID-19 Vaccine ( season) 2024 05/16/2022, 05/31/2021, 10/20/2020, Additional history exists Influenza Vaccine (FLU shot) (#1) 2024 08/15/2023, 06/09/2022, 05/17/2021, Additional history exists CKD PHOS USE SMARTSET 48080 03/13/202403/02, 03/12/2023, 03/11/2023, Additional history exists Albumin/Creatinine Ratio 05/14/2024 023, 06/27/2022, 09/02/2021, Additional history exists DTap/Tdap Vaccines (2 - Td or Tdap) 07/06/2024 07/06/2014, 09/13/2011 GFR 10/01/2024 04/02/2024, 01/31, 11/29/2023, Additional history exists Adult Wellness Visit 10/04/2024 10/05/2023, 10/02/2022, 09/29/2021, Additional history exists Depression Screening 10/04/2024 10/05/2023 DXA Scan 01/18/2025 01/18/2023, 05/0 11/2020, 07/28/2013 CKD HGB USE SMARTSET 01955 04/02/202504/02, 02/21/2024, 02/21/2024, Additional history exists TSH 04/02/2025 04/02/2024, 01/31, 11/29/2023, Additional history exists Pneumococcal Vaccine: 65+ Years Completed 05/16/2017, 04/04/2013 VITAMIN D LEVEL ONCE IN A LIFETIME-USE SMARTSET# [id number] Completed 02/21/2024, 10/09/2022, 03/10/2022, Additional history exists [...] Documents on File Type Date Recorded Patient Cardiology Nurse Practitioner Expl anation Advance Directives and Living Will 01/27/2023 Christiane Chong ADVANCE DIRECTIVE / LIVING WILL Power of Inside Outside Sales Representative 01/27/2023 POWER OF A TTORNEY * Full [...] Care Agent (per Health Care Power of Inside Outside Sales Representative document) Coral Chong Other - (no specific identity) First Alternate Health Care Agent (per Health Care Power of Inside Outside Sales Representative document) che Care Teams Archeology Professor Relationship Specialty Start Date End Date Shonda Fields MD [address] [place] [address] [place] [address] PCP - General Family Medicine 02/21/19 documented as of this encounter
--- OUTSIDE RECORDS SUMMARY | 2024-04-08 07:29 | External Medical Summary | Summary of Care ---
Author Name Unknown Organization [facility] Address [address] [place] [address] Phone [phone] Care Team Providers Care Client Care Coordinator Name Role Phone Shonda Fields MD Primary Care Prov ider Reason for Visit * Reason Comments Re-Check Outpatient Testing Encounter Details Date Type Department Care Team (Late st Contact Info) Description 04/02/2024 11:40 AM EDT Office Visit Family Medicine [address] [phone] Shonda Fields MD [address] [place], [place] [id number] [address] Closed fracture of neck of right femur with routine healing, subsequent encounter*; Coronary artery disease of [place] artery of [place] heart with stable angina pectoris (HCC); Adenocarcinoma [...] coronary artery stent placement,Coronary artery disease of [place] artery of [place] heart with stable angina pectoris (HCC) Place [...] meds). 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 CAD s/p CABG x 5, Old AK, Afib, Sinus node dysfunction with pacemaker. Dr Stephens is her primary form grader operator. Oncology. 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 90 Tablet 1 Pancrelipase (Pjb-Rphr-Aepm) [id number] UNIT Oral Capsule Delayed Release Particles (Creon 87170) 3 capsules by mouth with each meals [...] 1-2 TABLETS FOUR TIMES DAILY NEEDED FOR BLOATING/BGZ901 Tablet 5 oxyCODONE-Acetaminophen 10-325 MG Oral Tablet [...] - PT INR Coronary artery disease of [place] artery of [place] heart with stable angina pectoris (HCC) - [...] surgery date - will confer with her form grader operator about evaluation for surgery Shonda Chakraborty MD [...] leads Ventricular Rate: 84 Atrial Rate: 84 MI Interval: 184 QRS Duration: 124 QT/QTc: 392/463 ms P-R-T Shiner: 23 : 74 : -81 degrees documented [...] and patient is scheduled for surgery at [facility] on 04/08. Patient will most likely be [...] 04/17/2024 11:00 AM EDT Office Visit Cardiology, [facility] [address] [address] Dulce Boudreaux CRNP [address] [place] [address] 04/18/2024 12:00 PM EDT Office Visit Gastroenterology [address] [place] [address] Rina Nicole CRNP [address] [place] [address] 05/28/2024 10:00 AM EST Office Visit Cardiology, [facility] [address] [address] Lexi Mendiola PA-C [address] [place] [address] 06/11/2024 10:20 AM EST Office Visit Podiatry [facility] [address] [facility] [place] [address] Viky Hughes DPM [address] [place] [address] [place] [address] 10/06/2024 12:30 PM EDT Nurse Only Ancillary [address] [place] [address] Movjeanineey, Nurse [address] [place] [address] Health Maintenance Due Date Last Done Comments *BISPHONATE OR OTHER ACCEPTABLE MEDICATION NEEDED FOR OSTEOPOROSIS (REFER TO SMARTSET #1146) 11/25/2022 COVID-19 Vaccine ( season) 2024 05/16/2022, 05/31/2021, 10/20/2020, Additional history exists Influenza Vaccine (FLU shot) (#1) 2024 08/15/2023, 06/09/2022, 05/17/2021, Additional history exists CKD PHOS USE SMARTSET 95051 03/13/202403/02, 03/12/2023, 03/11/2023, Additional history exists Albumin/Creatinine Ratio 05/14/2024 023, 06/27/2022, 09/02/2021, Additional history exists DTap/Tdap Vaccines (2 - Td or Tdap) 07/06/2024 07/06/2014, 09/13/2011 GFR 10/01/2024 04/02/2024, 01/31, 11/29/2023, Additional history exists Adult Wellness Visit 10/04/2024 10/05/2023, 10/02/2022, 09/29/2021, Additional history exists Depression Screening 10/04/2024 10/05/2023 DXA Scan 01/18/2025 01/18/2023, 05/0 11/2020, 07/28/2013 CKD HGB USE SMARTSET 03195 04/02/202504/02, 02/21/2024, 02/21/2024, Additional history exists TSH 04/02/2025 04/02/2024, 01/31, 11/29/2023, Additional history exists Pneumococcal Vaccine: 65+ Years Completed 05/16/2017, 04/04/2013 VITAMIN D LEVEL ONCE IN A LIFETIME-USE SMARTSET# 99141 Completed 02/21/2024, 10/09/2022, 03/10/2022, Additional history exists [...] healing, subsequent encounter Coronary artery disease of [place] artery of [place] heart with stable angina pectoris (HCC) Preop examination Paroxysmal atrial fibrillation (HCC) Chronic kidney disease, stage 3a (HCC) PT INR Routine 04/02/2024 12:33 PM EDT Closed fracture of neck of right femur with routine healing, subsequent encounter Coronary artery disease of [place] artery of [place] heart with stable angina pectoris (HCC) Preop examination Paroxysmal atrial fibrillation (HCC) CBC Routine 04/02/2024 12:33 PM EDT Closed fracture of neck of right femur with routine healing, subsequent encounter Coronary artery disease of [place] artery of [place] heart with stable angina pectoris (HCC) Preop examination Paroxysmal atrial fibrillation (HCC) MI ECG ROUTINE ECG W/LEAST 12 LDS W/I&R Routine 04/02/2024 12:30 PM EDT Closed fracture of neck of right femur with routine healing, subsequent encounter Coronary artery disease of [place] artery of [place] heart with stable angina pectoris (HCC) Preop examination Paroxysmal atrial fibrillation (HCC) HTN, goal below 140/90 documented in this encounter Results * INFLUENZA A/B RSV SARS-COV2,PCR (04/02/2024 12:39 PM EDT) SARS-CoV-2 (COVID-19) Result Negative Negative 04/03/2024 12:22 AM EDT [facility] Comment: No SARS-CoV2 Coronavirus RNA detected by PCR (amplified probe). This express test was developed and its performance characteristics determined by [facility]. It has not been cleared or approved [...] was developed and performance characteristics determined by [facility]. The validation of alternate specimen types has not been cleared or approved by the U.S. Food and Drug Administration (FDA). It has been determined that such clearance is not necessary. Influenza A PCR Result Negative Negative 04/03/2024 12:22 AM EDT [facility] Comment:No Influenza A RNA d etected by PCR (amplified probe) Influenza B PCR Result Negative Negative 04/03/2024 12:22 AM EDT [facility] Comment:No Influenza B RNA d etected by PCR (amplified probe) RSV PCR Result Negative Negative 04/03/2024 12:22 AM EDT [facility] Comment:No Respiratory Syncy tial Virus RNA detected by PCR (amplified probe) Upper Respiratory Nasopharyngeal swab / Unknown Non-blood Collection / Unknown 04/02/2024 12:39 PM EDT 04/02/2024 12:40 PM EDT Shonda Oseguera MD LAB MICRO - GENERAL ORDERABLES Performing Organization Address City/[facility]/ZIP Co de Phone Number [facility] [address] [place] [address] * (ABNORMAL) BNP, NT-PRO (04/02/2024 12:33 PM EDT) BNP, NT-Pro 3,021(H) <300 pg/mL 04/03/2024 5:12 AM EDT [facility] Blood Venous blood specimen / Unknown Venipuncture / Unknown 04/02/2024 12:33 PM EDT 04/02/2024 12:33 PM EDT Narrative [facility] - 04/03/2024 5:12 AM EDT Exclude Heart Failure: <300 pg/mL Diagnose Heart Failure: Age <50 yr: >450 pg/mL 50-75 yr: >900 pg/mL >75 yr: >1800 pg/mL GFR is 30-59 mL/min: >1200 pg/mL or Age-adjusted values GFR <30 mL/min: do not use, not reliable Prognostic threshold: 1000 pg/mL Shonda Oseguera MD LAB BLOOD ORDERABLES Performing Organization Address [facility] Co de Phone Number [facility] [address] [place] [address] * TSH WITH FREE T4 IF INDICATED (04/02/2024 12:33 PM EDT) Pathologist [facility] TSH 3.71 0.27 - 4.20 uIU/mL 04/03/2024 5:12 AM EDT [facility] Blood Venous blood specimen / Unknown Venipuncture / Unknown 04/02/2024 12:33 PM EDT 04/02/2024 12:33 PM EDT Shonda Oseguera MD LAB BLOOD ORDERABLES Performing Organization Address City/[facility]/ZIP Co de Phone Number [facility] [address] [place] [address] * (ABNORMAL) PT INR (04/02/2024 12:33 PM EDT) Prothrombin Time 16.1(H) 11.6 - 15.2 seconds 04/02/2024 11:46 PM EDT [facility] INR 1.3(H) 0.8 - 1.2 04/02/2024 11:46 PM EDT [facility] Blood Venous blood specimen / Unknown Venipuncture / Unknown 04/02/2024 12:33 PM EDT 04/02/2024 12:33 PM EDT Narrative [facility] - 04/02/2024 11:46 PM EDT Warfarin Therapy INR: 2.0-3.0 conventional anticoagulation INR: 2.5-3.5 high intensity anticoagulation Shonda Oseguera MD LAB BLOOD ORDERABLES [facility] [address] [place] [address] * (ABNORMAL) COMPREHENSIVE METABOLIC PANEL (04/02/2024 12:33 PM EDT) BUN 22(H) 6 - 20 mg/dL 04/03/2024 4:26 AM EDT [facility] CREATININE 0.8 0.5 - 1.0 mg/dL 04/03/2024 4:26 AM EDT [facility] EGFR 69 >=60 mL/min 04/03/2024 4:26 AM EDT [facility] Comment:eGFR is calculated b ased on the CKD-EPI 2020 equation. SODIUM 141 135 - 146 mmol/L 04/03/2024 4:26 AM EDT LABORATORY C POTASSIUM 3.7 3.5 - 5.1 mmol/L 04/03/2024 4:26 AM EDT LABORATORY C CHLORIDE 104 98 - 107 mmol/L 04/03/2024 4:26 AM EDT LABORATORY C CO2 26 22 - 32 mmol/L 04/03/2024 4:26 AM EDT [facility] ANION GAP 11 7 - 15 mmol/L 04/03/2024 4:26 AM EDT [facility] GLUCOSE 102 70 - 120 mg/dL 04/03/2024 4:26 AM EDT [facility] Albumin 3.9 3.8 - 5.0 g/dL 04/03/2024 [...] MD LAB BLOOD ORDERABLES [facility] [address] [place] [address] * CBC (04/02/2024 12:33 PM EDT) WBC [...] 36.0 g/dL 04/03/2024 12:21 AM EDT [facility] RDW 13.6 11.5 - 15.5 % 04/03/2024 12:21 AM EDT [facility] PLT 189 140 - 400 K/uL 04/03/2024 12:21 AM EDT [facility] MPV 11.4 6.6 - 11.1 fL 04/03/2024 12:21 AM EDT [facility] nRBCs 0 <=0 /100 WBCs 04/03/2024 12:21 AM EDT [facility] Blood Venous blood specimen / Unknown Venipuncture / Unknown 04/02/2024 12:33 PM EDT 04/02/2024 12:33 PM EDT Shonda Oseguera MD LAB BLOOD ORDERABLES Performing Organization Address [facility] Co de Phone Number [facility] [address] [place] [address] * EKG (04/02/2024 12:30 PM EDT) 04/02/2024 [...] Lateralleads Ventricular Rate: 84 Atrial Rate: 84 MI Interval: 184 QRS Duration: 124 QT/QTc: 392/463 ms P-R-T Shiner: 23 : 74 : -81 degrees Shonda Oseguera MD EKG Performing Organization Address City/[facility]/ZIP Co de Phone Number [facility] documented in this encounter Visit Diagnoses Diagnosis Closed fracture of neck of right femur with routine healing, subsequent encounter- Primary Coronary artery disease of [place] ir[place] artery of [place] heart with stable angina pectoris (HCC) Adenocarcinoma [...] Documents on File Type Date Recorded Patient Coagulating Operator Expl anation Advance Directives and Living Will 01/27/2023 Christiane Chong ADVANCE DIRECTIVE / LIVING WILL Power of Manufacture Specialist 01/27/2023 POWER OF A TTORNEY * Full [...] Care Agent (per Health Care Power of Manufacture Specialist document) Coral Chong Other - (no specific identity) First Alternate Health Care Agent (per Health Care Power of Manufacture Specialist document) [email or web address] Client Care Coordinator Relationship Specialty Start Date End Date Shonda Fields MD [address] [place] [address] [place] [phone] PCP - General Family Medicine 02/21/19 documented as of this encounter
--- OUTSIDE RECORDS SUMMARY | 2024-04-08 07:29 | External Medical Summary | Summary of Care ---
Author Name Unknown Organization [facility] Address [address] [place] [address] Phone [phone] Care Team Providers Care Dispenser Operator Name Role Phone Shonda Fields MD Primary Care Prov ider Reason for Visit * Reason Comments Re-Check Outpatient Testing Encounter Details Date Type Department Care Team (Late st Contact Info) Description 04/02/2024 11:40 AM EDT Office Visit Family Medicine [address] [phone] Shonda Fields MD [address] [place], [place] [address] [address] Closed fracture of neck of right femur with routine healing, subsequent encounter*; Coronary artery disease of [place] artery of [place] heart with stable angina pectoris (HCC); Adenocarcinoma [...] as of this encounter (statuses as of 04/02/2024) Medications Medication Sig Dispensed Refills Start Date [...] coronary artery stent placement,Coronary artery disease of [place] artery of [place] heart with stable angina pectoris (HCC) Place [...] meds). 90 Tablet 1 11/15/2023 Active Pancrelipase (Pkj-Zhtu-Kzuh) [id number] UNIT Oral Capsule Delayed Release Particles (Creon 06257) 3 capsules by mouth with each meals [...] 24 Hour (Imdur)Indications:Co ronary artery disease of [place] artery of [place] heart with stable angina pectoris (HCC) TAKE 2 TABLETS IN THE MORNING AND 1 TABLET IN THE EVENING 270 Tablet 3 03/19/2024 Active documented as of this encounter (statuses as of 04/02/2024) Active Problems Problem Noted Date Diagnosed Date [...] artery 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[place] heart with stable angina pectoris 03/18/2020 Obesity, [...] 09/13/2011 Dyslipidemia, goal LDL below 70 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 0 09/13/2011 Overview: ICD-10 update of inactive term Personal history of malignant neoplasm of skin 0 10/19/2010 Overview: 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), R forehead BCC 01/2012, Ramon L forehead 01/2010 (Efudex) documented as of this encounter (statuses as of 04/02/2024) Resolved Problems Problem Noted Date Diagnosed Date [...] artery 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[place] heart with stable angina pectoris 11/04/2018 07/25/2022 Acute pain of right knee 11/30/2017 Hx of actinic keratosis 06/23/2015 06/0 07/2017 Irritable bowel syndrome 11/16/201208/2017 Abdominal pain 11/16/2012 08/04/2017 IBS (irritable bowel syndrome) 09/13/2011 02/21/2019 Anticoagulation management encounter 09/13/2011 11/04/2018 Dermatochalasis 06/22/2011 01/31/2018 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 0 12/23/2012 documented as of this encounter (statuses as of 04/02/2024) Immunizations Name Administration Dates Next Due COVID-19 mRNA, LNP-s, No Pre serve, 2-Dose Series (Start[employer]) 05/31/2021,10/20/2020,09/22/2020 Covid-19, Mrna, Lnp-s, Pf, B ivalent, [...] CV. CAD s/p CABG x 5, Old [place], Afib, Sinus node dysfunction with pacemaker. Dr Stephens is her primary structures mechanic. Oncology. 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 90 Tablet 1 Pancrelipase (Rrc-Vwwk-Armq) [id number] UNIT Oral Capsule Delayed Release Particles (Creon 37893) 3 capsules by mouth with each meals [...] 1-2 TABLETS FOUR TIMES DAILY NEEDED FOR BLOATING/MCV662 Tablet 5 oxyCODONE-Acetaminophen 10-325 MG Oral Tablet [...] - PT INR Coronary artery disease of [place] artery of [place] heart with stable angina pectoris (HCC) - [...] surgery date - will confer with her structures mechanic about evaluation for surgery Shonda Chakraborty MD documented in this encounter [...] leads Ventricular Rate: 84 Atrial Rate: 84 IA Interval: 184 QRS Duration: 124 QT/QTc: 392/463 ms P-R-T [place]: 23 : 74 : -81 degrees documented [...] and patient is scheduled for surgery at [facility] on 04/08. Patient will most [...] 04/18/2024 12:00 PM EDT Office Visit Gastroenterology [address] [place] [address] Rina Nicole CRNP [address] [facility] [place] [address] 05/28/2024 10:00 AM EST Office Visit Cardiology, [facility] [address] [facility] [place] [address] Lexi Mendiola PA-C [address] [place] [address] 06/11/2024 10:20 AM EST Office Visit Podiatry [facility] [address] [facility] [place] [address] Viky Hughes, YVESM [address] [place] [address] 10/06/2024 12:30 PM EDT Nurse Only Ancillary [address] [place] [address] [place], Nurse [address] [place] [address] Pending Results Name Type Priority Associated Diagnoses Date /Time CBC Lab Routine Closed fracture of neck of right femur with routine healing, subsequent encounter Coronary artery disease of [place] artery of [place] heart with stable angina pectoris (HCC) Preop examination Paroxysmal atrial fibrillation (HCC) 04/02/2024 12:33 PM EDT COMPREHENSIVE METABOLIC PANEL Lab Routine Closed fracture of neck of right femur with routine healing, subsequent encounter Coronary artery disease of [place] artery of [place] heart with stable angina pectoris (HCC) Preop examination Paroxysmal atrial fibrillation (HCC) Chronic kidney disease, stage 3a (HCC) 04/02/2024 12:33 PM EDT PT INR Lab Routine Closed fracture of neck of right femur with routine healing, subsequent encounter Coronary artery disease of [place] artery of [place] heart with stable angina pectoris (HCC) Preop examination Paroxysmal atrial fibrillation (HCC) 04/02/2024 12:33 PM EDT TSH WITH FREE T4 IF INDICATED Lab Routine Hypothyroidism due to acquired atrophy of thyroid 04/02/2024 12:33 PM EDT BNP, NT-PRO Lab Routine Cardiac pacemaker in situ Paroxysmal atrial fibrillation (HCC) Old myocardial infarction 04/02/2024 12:33 PM EDT INFLUENZA A/B RSV SARS-COV2,PCR Lab Routine Acute pharyngitis, unspecified etiology 04/02/2024 12:39 PM EDT Scheduled Orders Name Type Priority Associated Diagnoses Orde r Schedule CBC Lab Routine Closed fracture of neck of right femur with routine healing, subsequent encounter Coronary artery disease of [place] artery of [place] heart with stable angina pectoris (HCC) Preop examination Paroxysmal atrial fibrillation (HCC) Expected: 04/02/2024 (Approximate), Expires: 04/02/2025 COMPREHENSIVE METABOLIC PANEL Lab Routine Closed fracture of neck of right femur with routine healing, subsequent encounter Coronary artery disease of [place] artery of [place] heart with stable angina pectoris (HCC) Preop examination Paroxysmal atrial fibrillation (HCC) Chronic kidney disease, stage 3a (HCC) Expected: 04/02/2024 (Approximate), Expires: 04/02/2025 PT INR Lab Routine Closed fracture of neck of right femur with routine healing, subsequent encounter Coronary artery disease of [place] artery of [place] heart with stable angina pectoris (HCC) Preop examination Paroxysmal atrial fibrillation (HCC) Expected: 04/02/2024 (Approximate), Expires: 04/02/2025 TSH WITH FREE T4 IF INDICATED Lab Routine Hypothyroidism due to acquired atrophy of thyroid Expected: 04/02/2024 (Approximate), Expires: 04/02/2025 BNP, NT-PRO Lab Routine Cardiac pacemaker in situ Paroxysmal atrial fibrillation (HCC) Old myocardial infarction Expected: 04/02/2024 (Approximate), Expires: 04/02/2025 INFLUENZA A/B RSV SARS-COV2,PCR Lab Routine Acute pharyngitis, unspecified etiology Expected: 04/02/2024 (Approximate), Expires: 04/02/2025 Health Maintenance Due Date Last Done Comments *BISPHONATE OR OTHER ACCEPTABLE MEDICATION NEEDED FOR OSTEOPOROSIS (REFER TO SMARTSET #1146) 11/25/2022 COVID-19 Vaccine ( season) 2024 05/16/2022, 05/31/2021, 10/20/2020, Additional history exists Influenza Vaccine (FLU shot) (#1) 2024 08/15/2023, 06/09/2022, 05/17/2021, Additional history exists CKD PHOS USE SMARTSET 87950 03/13/202403/02, 03/12/2023, 03/11/2023, Additional history exists Albumin/Creatinine Ratio 05/14/2024 023, 06/27/2022, 09/02/2021, Additional history exists DTap/Tdap Vaccines (2 - Td or Tdap) 07/06/2024 07/06/2014, 09/13/2011 GFR 08/23/2024 02/21/2024, 11/01, 08/23/2023, Additional history exists Adult Wellness Visit 10/04/2024 10/05/2023, 10/02/2022, 09/29/2021, Additional history exists Depression Screening 10/04/2024 10/05/2023 DXA Scan 01/18/2025 01/18/2023, 05/0 11/2020, 07/28/2013 CKD HGB USE SMARTSET 01972 02/20/202502/20, 02/21/2024, 11/29/2023, Additional history exists TSH 02/20/2025 02/21/2024, 11/01, 08/23/2023, Additional history exists Pneumococcal Vaccine: 65+ Years Completed 05/16/2017, 04/04/2013 VITAMIN D LEVEL ONCE IN A LIFETIME-USE SMARTSET# 07207 Completed 02/21/2024, 10/09/2022, 03/10/2022, Additional history exists [...] Procedure Name Priority Date/Time Associated Diagnosis Comments IA ECG ROUTINE ECG W/LEAST 12 LDS I&R ONLY Routine 04/02/2024 12:30 PM EDT Closed fracture of neck of right femur with routine healing, subsequent encounter Coronary artery disease of [place] artery of [place] heart with stable angina pectoris (HCC) Preop examination Paroxysmal atrial fibrillation (HCC) HTN, goal below 140/90 documented in this encounter Results * EKG (04/02/2024 12:30 PM EDT) 04/02/2024 [...] Lateralleads Ventricular Rate: 84 Atrial Rate: 84 IA Interval: 184 QRS Duration: 124 QT/QTc: 392/463 ms P-R-T [place]: 23 : 74 : -81 degrees Shonda Oseguera MD EKG [facility] documented in this encounter Visit Diagnoses Diagnosis Closed fracture of neck of right femur with routine healing, subsequent encounter- Primary Coronary artery disease of [place] artery of [place] heart with stable angina pectoris (HCC) Adenocarcinoma [...] Documents on File Type Date Recorded 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 Procurement Clerk Expl anation Advance Directives and Living Will 01/27/2023 Christiane Chong ADVANCE DIRECTIVE / LIVING WILL Power of Pad Machine Operator 01/27/2023 POWER OF A TTORNEY * Full [...] Care Agent (per Health Care Power of Pad Machine Operator document) [email or web address] - (no specific identity) First Alternate Health Care Agent (per Health Care Power of Pad Machine Operator document) [email or web address] Care Teams Dispenser Operator Relationship Specialty Start Date End Date Shonda Fields MD [address] [place] [address] [place] [phone] PCP - General Family Medicine 02/21/19 documented as of this encounter
--- OUTSIDE RECORDS SUMMARY | 2024-04-08 07:29 | External Medical Summary ---
Author Name Unknown Address Unknown Organization K01:LABORATORY [facility] [place] - [address] [facility] [address] Laboratory Report Ordering Provider Test Date Status NASIR LONGO 04/02/2024 12:39:58 Final Observation Date Value Abnormality Reference (Units ) Status SARS Coronavirus 2 04/02/2024 12:39:58 Negative N egative Final No SARS-CoV2 Coronavirus RNA detected by PCR (amplified probe).
This express test was developed and its performance characteristics determined by [facility]. It has not been cleared or approved [...] (RT-PCR) test, or a Centers for Disease Control-acceptable equivalent. The test is performed in a high complexity Clinical Laboratory Improvement Amendments-(CLIA) certified laboratory. The test is acceptable for SARS-CoV-2 diagnosis, surveillance, and travel within the [place] and to most countries. Please check with local testing authorities about requirements before travel.

The validation of bronchial specimens, tracheal aspirates, and sputum for this assay was developed and performance characteristics determined by [facility]. The validation of alternate specimen types has not been cleared or approved by the U.S. Food and Drug Administration (FDA). It has been determined that such clearance is not necessary. Influenza virus A RNA [Prese nce] in Specimen by WINSTON with probe detection 04/02/2024 12:39:58 Negative Negative Final No Influenza A RNA detected by PCR (amplified probe) Influenza virus B RNA [Prese nce] in Specimen by WINSTON with probe detection 04/02/2024 12:39:58 Negative Negative Final No Influenza B RNA detected by PCR (amplified probe) Respiratory syncytial virus RNA [Identifier] in Specimen by WINSTON with probe detection 04/02/2024 12:39:58 Negative Negative Final No Respiratory Syncytial Vir us RNA detected by PCR (amplified probe) Performing Location LABORATORY [address] Ravindra Esquivel. [facility] [address]
--- OUTSIDE RECORDS SUMMARY | 2024-04-08 07:29 | External Medical Summary ---
Author Name Unknown Address Unknown Organization [id number]:[facility] [place] [address] [place] [id number] Laboratory Report Ordering Provider Test Date Status NASIR LONGO 04/02/2024 12:33:53 Final Observation Date Value Abnormality Reference (Units ) Status BUN 04/02/2024 12:33:53 22 Above high normal 6-20 (mg/dL) Final Creatinine 04/02/2024 12:33:53 0.8 0.5-1.0 (mg/dL) Final Glomerular filtration rate/1.73 sq M.predicted [Volume Rate/Area] in Serum, Plasma or Blood by Creatinine-based formula (CKD-EPI) 04/02/2024 12:33:53 69 >=60 (mL/min) Final eGFR is calculated based on the CKD-EPI 2020 equation. Sodium 04/02/2024 12:33:53 141 135-146 (m mol/L) Final Potassium 04/02/2024 12:33:53 3.7 3.5-5.1 (m mol/L) Final Cl 04/02/2024 12:33:53 104 98-107 (mm ol/L) Final CO2 04/02/2024 12:33:53 26 22-32 (mmo l/L) Final Anion gap 04/02/2024 12:33:53 11 7-15 (mmol /L) Final Glucose 04/02/2024 12:33:53 102 70-120 (mg /dL) Final Albumin 04/02/2024 12:33:53 3.9 3.8-5.0 (g /dL) Final AST (Aspartate aminotransferase) 04/02/2024 12:33:53 19 10-35 (U/L) Final Alk Phos 04/02/2024 12:33:53 94 35-130 (U/ L) Final Bilirubin, Total 04/02/2024 12:33:53 0.3 <=1 .2 (mg/dL) Final Calcium 04/02/2024 12:33:53 9.8 8.4-10.2 ( mg/dL) Final Protein 04/02/2024 12:33:53 6.0 6.0-8.3 (g /dL) Final ALT (Alanine aminotransferase) 04/02/2024 12:33:53 17 10-35 (U/L) Final Performing Location LAB[facility] [place] - [facility] [address]qu[address]. [facility] [address]
--- OUTSIDE RECORDS SUMMARY | 2024-04-08 07:30 | External Medical Summary ---
Author Name Unknown Address Unknown Organization K01:[place]ATORY [facility] [place] [address] [place] [address] Laboratory Report Ordering Provider Test Date Status NASIR LONGO 04/02/2024 12:33:53 Final Warfarin Therapy
INR: 2 .0-3.0 conventional anticoagulation
INR: 2.5- 3.5 high intensity anticoagulation Observation Date Value Abnormality Reference (Units ) Status PT 04/02/2024 12:33:53 16.1 Above high normal 11 .6-15.2 (seconds) Final INR 04/02/2024 12:33:53 1.3 Above high normal 0. 8-1.2 Final Performing Location LABORATORY [facility] [place] [address] [place] [address]
--- OUTSIDE RECORDS SUMMARY | 2024-04-08 07:30 | External Medical Summary ---
Author Name Unknown Address Unknown Organization K01:LABORATORY [facility] [place] - [address] [place] [address] Laboratory Report Ordering Provider Test Date Status NASIR LONGO 04/02/2024 12:33:53 Final Exclude Heart Failure: <300 pg/mL
Diagnose Heart Failure:
Age <50 yr: >450 pg/mL
50-75 yr: >900 pg/mL
>75 yr: >1800 pg/mL
GFR is 30-59 mL/min: >1200 pg/mL or Age- adjusted values
GFR <30 mL/min: do not use, not reliable

Prognostic threshold: 1000 pg/mL Observation Date Value Abnormality Reference (Units ) Status BNP, Pro-hormone 04/02/2024 12:33:53 3021 Above high no rmal <300 (pg/mL) Final Performing Location LABORATORY [facility] [place] - [facility] [address]
--- OUTSIDE RECORDS SUMMARY | 2024-04-08 07:30 | External Medical Summary | Summary of Care ---
Author Name Unknown Organization [facility] Address [address] [place] [address] Phone [phone] Care Team Providers Care Mechanic Name Role Phone Shonda Fields MD Primary Care Prov ider Reason for Visit * Reason Onset Date Comments Appointment 03/21/2024 Encounter Details Date Type Department Care Team (Late st Contact Info) Description 03/21/2024 Telephone Cardiology, [facility] [address] [place] [address] Victoriano Stephens, [address] [place] [address] Appointment Allergies Active Allergy Reactions Criticality Noted Date [...] as of this encounter (statuses as of 03/31/2024) Medications Medication Sig Dispensed Refills Start Date [...] coronary artery stent placement,Coronary artery disease of [place] artery of [place] heart with stable angina pectoris (HCC) Place [...] meds). 90 Tablet 1 11/15/2023 Active Pancrelipase (Vqx-Hymv-Cxxr) [id number] UNIT Oral Capsule Delayed Release Particles (Creon 22527) 3 capsules by mouth with each meals [...] 24 Hour (Imdur)Indications:Co ronary artery disease of [place] artery of [place] heart with stable angina pectoris (HCC) TAKE 2 TABLETS IN THE MORNING AND 1 TABLET IN THE EVENING 270 Tablet 3 03/19/2024 Active documented as of this encounter (statuses as of 03/31/2024) Active Problems Problem Noted Date Diagnosed Date [...] artery 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[place] heart with stable angina pectoris 03/18/2020 Obesity, [...] 09/13/2011 Dyslipidemia, goal LDL below 70 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 0 09/13/2011 Overview: ICD-10 update of inactive term Personal history of malignant neoplasm of skin 0 10/19/2010 Overview: 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), R forehead BCC 01/2012, Ramon L forehead 01/2010 (Efudex) documented as of this encounter (statuses as of 03/31/2024) Resolved Problems Problem Noted Date Diagnosed Date [...] artery 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[place] heart with stable angina pectoris 11/04/2018 07/25/2022 Acute pain of right knee 11/30/2017 Hx of actinic keratosis 06/23/2015 06/0 07/2017 Irritable bowel syndrome 11/16/201208/2017 Abdominal pain 11/16/2012 08/04/2017 IBS (irritable bowel syndrome) 09/13/2011 02/21/2019 Anticoagulation management encounter 09/13/2011 11/04/2018 Dermatochalasis 06/22/2011 01/31/2018 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 0 12/23/2012 documented as of this encounter (statuses as of 03/31/2024) Immunizations Name Administration Dates Next Due COVID-19 mRNA, LNP-s, No Pre serve, 2-Dose Series ([employer]) 05/31/2021,10/20/2020,09/22/2020 Covid-19, Mrna, Lnp-s, Pf, B ivalent, 30 Mcg, IM, 12 yrs and above (Pfizer) 05/16/2022 Pneumococcal Conjugate Vacc, 13 Valent (Prevnar) 05/16/2017 Pneumococcal Polysaccharide PPV23 (Pneumovax) 04/04/2013 Season Influenza, Quad, PF, Adjuvanted, 65+ Yrs, IM (FLUAD) 04/08/2020 Seasonal Influenza, Quadriva lent Hd (Fluzone Hd) 08/15/2023,06/09/2022,05/12/2021 Seasonal Influenza, Trivalen t, (IIV3), with Preserv, (Fluzone) 04/01/2011 Seasonal Influenza, Trivalen t, Adjuvanted, 65+ YRS, [...] Telephone Encounter - Preston Melton OSA - 03/24/2024 10:26 AM EDT Patient has been scheduled and placed on the wait-list. RETURN CARDIOLOGY at 10:00 AM (30 min)Arrive by 9:45 AM Tuesday May 28, 2024 Appointment Provider:Lexi Mendiola PA-C in CARDIOLOGY [facility]ECILIO REYNA * Telephone Encounter - Vinita Peña RN - 03/21/2024 3:20 PM EDT Called received from [facility] pre-admission testing regarding need for pre-op evaluation prior to surgery. Currently, patient tentatively scheduled for right total hip replacement 04/08/[address] Duenas [facility]. Advised pre-admission testing limited appointments, elective procedure may need to be delayed basedon availability. Please assist in scheduling and ensure to add to fast pass list if appointment outside of planned surgery date. documented in this encounter Plan of Treatment Upcoming Encounters Date Type Department Care Team (Late st Contact Info) Description 04/02/2024 11:40 AM EDT Office Visit Family Medicine [address] [place] [phone] Shonda Fields MD [address] [place] [address] [place] [address] 04/18/2024 12:00 PM EDT Office Visit Gastroenterology [address] [place] [address] Rina Nicole CRNP [address] [facility] [place] [address] 05/28/2024 10:00 AM EST Office Visit Cardiology, [facility] [address] [facility] [place] [address] Lexi Mendiola PA-C [address] [place] [address] 06/11/2024 10:20 AM EST Office Visit Podiatry [facility] [address] [facility] [place] [address] Viky Hughes DPM [facility] [address] 10/06/2024 12:30 PM EDT Nurse Only Ancillary [address] [place] [phone] [place], Nurse [address] [place] [address] Health Maintenance Due Date Last Done Comments *BISPHONATE OR OTHER ACCEPTABLE MEDICATION NEEDED FOR OSTEOPOROSIS (REFER TO SMARTSET #1146) 11/25/2022 COVID-19 Vaccine ( season) 2024 05/16/2022, 05/31/2021, 10/20/2020, Additional history exists Influenza Vaccine (FLU shot) (#1) 2024 08/15/2023, 06/09/2022, 05/17/2021, Additional history exists CKD PHOS USE SMARTSET 42437 03/13/202403/02, 03/12/2023, 03/11/2023, Additional history exists Albumin/Creatinine Ratio 05/14/2024 023, 06/27/2022, 09/02/2021, Additional history exists DTap/Tdap Vaccines (2 - Td or Tdap) 07/06/2024 07/06/2014, 09/13/2011 GFR 08/23/2024 02/21/2024, 11/01, 08/23/2023, Additional history exists Adult Wellness Visit 10/04/2024 10/05/2023, 10/02/2022, 09/29/2021, Additional history exists Depression Screening 10/04/2024 10/05/2023 DXA Scan 01/18/2025 01/18/2023, 05/0 11/2020, 07/28/2013 CKD HGB USE SMARTSET 51161 02/20/202502/20, 02/21/2024, 11/29/2023, Additional history exists TSH 02/20/2025 02/21/2024, 11/01, 08/23/2023, Additional history exists Pneumococcal Vaccine: 65+ Years Completed 05/16/2017, 04/04/2013 VITAMIN D LEVEL ONCE IN A LIFETIME-USE SMARTSET# 01124 Completed 02/21/2024, 10/09/2022, 03/10/2022, Additional history exists [...] Documents on File Type Date Recorded 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 Advance Directives and Living Will 01/27/2023 Christiane Chong ADVANCE DIRECTIVE / LIVING WILL Power of Die Tripper 01/27/2023 POWER OF A TTORNEY * Full [...] Care Agent (per Health Care Power of Die Tripper document) [email or web address] Chong Other - (no specific identity) First Alternate Health Care Agent (per Health Care Power of Die Tripper document) [email or web address] Care Teams Mechanic Relationship Specialty Start Date End Date Shonda Fields MD [address] [place] [address] [place] [phone] PCP - General Family Medicine 02/21/19 documented as of this encounter
--- OUTSIDE RECORDS SUMMARY | 2024-04-08 07:30 | External Medical Summary ---
Author Name Unknown Address Unknown Organization K01:[place]ORY [facility] [place] [address] [place] [address] Laboratory Report Ordering Provider Test Date Status NASIR LONGO 04/02/2024 12:33:53 Final Observation Date Value Abnormality Reference (Units ) Status TSH 04/02/2024 12:33:53 3.71 0.27-4.20 (uIU/mL) Final Performing Location [place]ORY [facility] [place] [address] [place] [address]
--- OUTSIDE RECORDS SUMMARY | 2024-04-08 07:30 | External Medical Summary ---
Author Name Unknown Address Unknown Organization K01:[facility] [place] [facility] [address] [facility] [address] Laboratory Report Ordering Provider Test Date Status NASIR LONGO 04/02/2024 12:33:53 Final Observation Date Value Abnormality Reference (Units ) Status WBC, Total 04/02/2024 12:33:53 6.09 4.00-10.80 (K/uL) Final RBC 04/02/2024 12:33:53 3.83 3.85-5.15 (M/uL) Final Hemoglobin 04/02/2024 12:33:53 12.0 12.0-15.3 (g/dL) Final HCT 04/02/2024 12:33:53 37.4 36.0-45.2 (%) Final MCV 04/02/2024 12:33:53 97.7 81.5-97.5 (fL) Final MCH 04/02/2024 12:33:53 31.3 27.0-34.0 (pg) Final MCHC 04/02/2024 12:33:53 32.1 32.0-36.0 (g/dL) Final RDW 04/02/2024 12:33:53 13.6 11.5-15.5 (%) Final Platelets 04/02/2024 12:33:53 189 140-400 (K/uL) Final MPV 04/02/2024 12:33:53 11.4 6.6-11.1 (fL) Final Nucleated erythrocytes/100 leukocytes [Ratio] in Blood by Automated count 04/02/2024 12:33:53 0 <=0 (/100 WBCs) Final Performing Location [facility] [place] [address] [facility] [address]
--- OUTSIDE RECORDS SUMMARY | 2024-04-08 07:30 | External Medical Summary | Summary of Care ---
Author Name Unknown Organization [facility] Address [address] [place] [address] Phone [phone] Care Team Providers Care Medical Device Sales Name Role Phone Shonda Fields MD Primary Care Prov ider Reason for Visit * Reason Onset Date Comments Appointment 03/14/2024 4 week ret Encounter Details Date Type Department Care Team (Late st Contact Info) Description 03/14/[address] [phone] Shonda Fields MD [address] [place], [place] [address] [address] Appointment (4 week ret ) Allergies Active Allergy Reactions Criticality Noted [...] as of this encounter (statuses as of 03/24/2024) Medications Medication Sig Dispensed Refills Start Date End Date Status ASPIRIN EC 81 MG PO TBEC 1 TABLET DAILY 5 Active acetaminophen (TYLENOL) 500 MG Tablet Take 2 Tablets by mouth every 8 hours as needed for Pain. Active Diclofenac Sodium 1 % External Gel (Voltaren)Indicatio ns:Shoulder arthritis Apply topically to affected area daily. 100 g 1 1 Active Vitamin D3 25 MCG Oral Tablet 5 Tablets. 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 up to 3 doses in 15 minutes 150 Tablet 3 2 Active Calcium 600-D 600-400 MG-UNIT Oral Tablet Take 1 Tablet by mouth in the morning. In the morning.. 2 Active Cholestyramine 4 GM Oral Packet (Questran) Take 1 Packet by mouth every other day. Mixed with liquid. 90 Packet 1 3 Active Dicyclomine HCl 10 MG Oral Capsule (Bentyl)Indications :Gastroesophageal reflux disease without esophagitis Take 1 Capsule by mouth 4 times a day as needed for Indigestion. For abdominal pain 120 Capsule 5 3 Active Metoprolol Succinate ER 50 MG Oral Tablet Extended Release 24 Hour (toPROL XL)Indications:Paro xysmal atrial fibrillation (HCC) Take 1.5 Tablets by mouth in the morning and 1.5 Tablets before bedtime. 275 Tablet 3 3 Active Sertraline HCl 100 MG Oral Tablet (Zoloft)Indications :Adjustment disorder with anxious mood Take 1 Tablet by mouth in the morning. 30 Tablet 5 4 Active ALPRAZolam 0.25 MG Oral Tablet (xaNAX)Indications: Stress TAKE ONE TABLET BY MOUTH THREE TIMES DAILY NEEDED FOR ANXIETY OR INSOMNIA 30 Tablet 2 4 Active Levothyroxine Sodium 50 MCG Oral Tablet (Levoxyl)Indication s:Acquired hypothyroidism Take by mouth 1 Tablet in the morning. (at least 30 min prior to breakfast or other meds). 90 Tablet 1 4 Active Pancrelipase (Ymh-Qztj-Ctoj) 58[address] UNIT Oral Capsule Delayed Release Particles (Creon 64540) 3 capsules by mouth with each meals up to three times daily 270 Capsule 3 4 Active Sertraline HCl 100 MG Oral Tablet (Zoloft) Take 1 Tablet by mouth in the morning. 10 Tablet 4 Active Ondansetron 4 MG Oral Tablet Disintegrating (Zofran)Indications :Vomiting and diarrhea Place 1 Tablet on tongue every 8 hours as needed for Nausea. dissolve on tongue. 30 Tablet 5 4 Active Docusate Sodium 100 MG Oral Capsule (Colace)Indications :Drug-induced constipation Take 1 Capsule by mouth in the morning. 60 Capsule 5 4 Active Omeprazole 40 MG Oral Capsule Delayed Release (PriLOSEC)Indicatio ns:Gastroesophageal reflux disease without esophagitis Take 1 Capsule by mouth in the morning. 90 Capsule 2 4 Active Simethicone 80 MG Oral Tablet ChewableIndications :Esophageal spasm,Gastroesophag eal reflux disease without esophagitis CHEW 1-2 TABLETS FOUR TIMES DAILY NEEDED FOR BLOATING/GAS 100 Tablet 5 4 Active oxyCODONE-Acetamino phen 10-325 MG Oral TabletIndications:C losed fracture of neck of right femur with delayed healing, subsequent encounter Take 1 Tablet by mouth every 4 hours as needed for Pain, Moderate. 90 Tablet 4 Active Apixaban 5 MG Oral Tablet (Eliquis) Take 1 Tablet by mouth in the morning and 1 Tablet before bedtime. 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 0 09/13/2011 Overview: ICD-10 update of inactive term Personal history of malignant neoplasm of skin 0 10/19/2010 Overview: 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), R forehead BCC 01/2012, Ramon L forehead 01/2010 (Efudex) documented as of this encounter (statuses as of 03/24/2024) Resolved Problems Problem Noted Date Diagnosed Date [...] artery 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andreafski heart with stable angina pectoris 11/04/2018 07/25/2022 Acute pain of right knee 11/30/2017 Hx of actinic keratosis 06/23/2015 06/0 07/2017 Irritable bowel syndrome 11/16/201208/2017 Abdominal pain 11/16/2012 08/04/2017 IBS (irritable bowel syndrome) 09/13/2011 02/21/2019 Anticoagulation management encounter 09/13/2011 11/04/2018 Dermatochalasis 06/22/2011 01/31/2018 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 0 12/23/2012 documented as of this encounter (statuses as of 03/24/2024) Immunizations Name Administration Dates Next Due COVID-19 mRNA, LNP-s, No Pre serve, 2-Dose Series ([employer] 05/31/2021,10/20/2020,09/22/2020 Covid-19, Mrna, Lnp-s, Pf, B [...] encounter Miscellaneous Notes * Telephone Encounter - Latha Starks OSA - 03/24/2024 8:51 AM EDT Patient scheduled for 04/02/24 at 11:40 am * Telephone Encounter - Ml Peña OSA - 03/14/2024 12:52 PM EDT Steve saw Dr. HAMPTON on 03/05/24 and needs to return in: Return in about 4 weeks (around 04/02/2024) for Return with Physician. documented in this encounter Plan of Treatment Upcoming Encounters Date Type Department Care Team (Late st Contact Info) Description 04/02/2024 11:40 AM EDT Office Visit Family Medicine [address] [place] [phone] Shonda Fields MD [address] [place] [address] [place] [address] 04/04/2024 3:20 PM EDT Office Visit Rheumatology [address] [place] [phone] Zane Vann MD [address] [place] [address] [place] [address] 04/18/2024 12:00 PM EDT Office Visit Gastroenterology [address] [place] [address] Rina Nicole CRNP [address] [place] [address] 06/11/2024 10:20 AM EST [facility] [address] [place] [address] Viky Hughes DPM [address] [facility] [place] [address] 10/06/2024 12:30 PM EDT Nurse Only Ancillary [address] [place] [address] [place], Nurse Annual Wellness [address] [place] [address] [place] [address] Health Maintenance Due Date Last Done Comments *BISPHONATE OR OTHER ACCEPTABLE MEDICATION NEEDED FOR OSTEOPOROSIS (REFER TO SMARTSET #1146) 11/25/2022 COVID-19 Vaccine ( season) 2024 05/16/2022, 05/31/2021, 10/20/2020, Additional history exists Influenza Vaccine (FLU shot) (#1) 2024 08/15/2023, 06/09/2022, 05/17/2021, Additional history exists CKD PHOS USE SMARTSET 31031 03/13/202403/02, 03/12/2023, 03/11/2023, Additional history exists Albumin/Creatinine Ratio 05/14/2024 023, 06/27/2022, 09/02/2021, Additional history exists DTap/Tdap Vaccines (2 - Td or Tdap) 07/06/2024 07/06/2014, 09/13/2011 GFR 08/23/2024 02/21/2024, 11/01, 08/23/2023, Additional history exists Adult Wellness Visit 10/04/2024 10/05/2023, 10/02/2022, 09/29/2021, Additional history exists Depression Screening 10/04/2024 10/05/2023 DXA Scan 01/18/2025 01/18/2023, 05/0 11/2020, 07/28/2013 CKD HGB USE SMARTSET 28457 02/20/202502/20, 02/21/2024, 11/29/2023, Additional history exists TSH 02/20/2025 02/21/2024, 11/01, 08/23/2023, Additional history exists Pneumococcal Vaccine: 65+ Years Completed 05/16/2017, 04/04/2013 VITAMIN D LEVEL ONCE IN A LIFETIME-USE SMARTSET# 91057 Completed 02/21/2024, 10/09/2022, 03/10/2022, Additional history exists [...] Documents on File Type Date Recorded Patient Prepress Supervisor Expl anation Advance Directives and Living Will 01/27/2023 Christiane Chong ADVANCE DIRECTIVE / LIVING WILL Power of Electrophysiology Scientist 01/27/2023 POWER OF A TTORNEY * Full [...] Care Agent (per Health Care Power of Electrophysiology Scientist document) [email or web address] Other - (no specific identity) First Alternate Health Care Agent (per Health Care Power of Electrophysiology Scientist document) [email or web address] Care Teams Medical Device Sales Relationship Specialty Start Date End Date Shonda Fields MD [address] [place] [address] [place] [address] PCP - General Family Medicine 02/21/19 documented as of this encounter
[2024-04-08] MEDS ORDERED: ePHEDrine sulfate 50 MG/5 ML SYR ONE (07:36)
[2024-04-08] MEDS: BUPIVACAINE/EPINEPHRINE 0.25% 1:200,000 30 ML VIAL ONE (08:39)
--- NOTE | 2024-04-08 08:56 | Operative Report ---
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 She had a chronic nonunion with no signs of healing. Diffuse osteopenia. She did have significant acetabular erosion from the hardware. Specimens Right femoral head sent for pathology. Complications none Indications Patient is an 83-year-old female with sustained an injury back in September. She had a valgus impacted femoral neck fracture treated with a Synthes femoral neck fixation system. She did well initially but then after about 6 to 8 weeks started to deteriorate and function. X-ray showed failure fixation cut out the head. She failed conservative measures. She was medically optimized and indicated for surgical treatment. Treatment was a removal of the hardware and hybrid total hip arthroplasty. Description of Procedure Operative implants consist of: 1. Biomet G7 size 54 mm acetabular shell. 2. 6.5 cancellous acetabular screws 135 mm in length and 1 of 30 mm length. 3. Dual mobility metal acetabular liner. 4. DePuy Willow size 3 high offset cemented femoral stem. 5. +8.5/28 mm metal articular ball with a dual mobility 40 mm outer diameter liner. 6. 11 mm centralizer. 7. Small cement restrictor. The patient was taken the operating, identified, and placed on the operating table in the supine position. All contractors were appropriately padded. IV antibiotics were provided by the anesthesia team. A spinal anesthetic and been implemented in the holding area. A Cano catheter was placed in sterile fashion. The patient is then placed in the left lateral decubitus position. An axillary roll was placed. Distal Birkett position was used for positioning. The right hip and leg were then prepped and draped in usual sterile fashion. Posterolateral approach to the right hip was then formed a curvilinear incision centered over the greater trochanter. Sharp dissection scalp through subcutaneous tissue down to the IT band gluteal fascia the IT band gluteal fascia incised longitudinally in line with skin incision. The underlying greater troches bursa was excised. The piriformis and external rotators along with the posterior hip joint capsule were then released from the posterior aspect of the hip as a single layer. Great care was taken throughout the procedure protect the sciatic nerve at all times. The hip was internally rotated and dislocated. There is clear motion at the fracture site and the bone is not healed. I then relocated the hip. I then made an incision in the vastus lateralis at the level of the lesser trochanter and found the lateral plate and screw. The screws were backed out and the plate device was removed without difficulty. The hip was then internally rotated again. The femoral head was removed. A femoral neck osteotomy cut was then made about a centimeter above the lesser trochanter. Femoral neck was removed. The femur was retracted anteriorly. Attention drawn the acetabulum. The acetabulum labrum was excised. Was fairly calcified. I removed the pulm onary fat. Sequential reaming the acetabular was then performed beginning with size 43 and progressing up to 53. I reamed a little bit with a 54 reamer and then placed a 54 mm cup in about 40 degrees lateral opening and 20 degrees of anteversion. It was fixed with two 6.5 screws. Trial liner was placed. Attention drawn the femur. The proximal femur was entered with a y prime cutter followed by canal finder and lateralizing reamer. I then broached beginning with size 1 progressing up to a 3. He had a pretty tight fitted 3. We trialed the hip. The standard offset stem allowed for a lot of soft tissue laxity. I was a bit concerned about stability with this patient so we elect to use a high offset stem. We used a +5 articular ball. Hip was fully stable full extension and external rotation and flexion to 90 degrees internal Tatian over 50 degrees. Leg lengths seemed equal and soft tissue tension seemed appropriate. We elect to place his implants. All trial implants were removed. I elected to place a dual mobility insert in the acetabular component. A double batch Palacos G cement was mixed. A size 3 Willow high offset femoral stem was placed. A +8.5/28 mm metal ball and a 40 mm dual mobility liner was then placed. The hip was located once again found to be stable. Attention drawn toward closing. The wound was irrigated extensively. I did inject locally with this 40 cc of absent Marcaine with epinephrine. The posterior capsule and external rotators were repaired through drill holes in the posterior trochanter with #2 Tycron suture. The vastus lateralis area well where the hardware was removed was closed with #1 Vicryl suture running fashion. The IT band gluteal fascia then closed in 1 PDS suture in running fashion the subcutaneous tissue then closed wi th 2 layers the deep layer normal Vicryl suture and subcutaneous tissue with 2 Dexon suture in a buried interrupted fashion the skin was closed skin tray. Leg was then cleaned and dried and a sterile dressing with Xeroform, 4 fours, sterile ABD pad and foam tape was applied. The patient then transferred to the recovery room in stable condition. Patient tolerated procedure well and there are no complications. Chay Xie, my physician mental health assistant, was present for the entire procedure. His assistance was essential and required for appropriate patient positioning, prepping and draping, surgical exposure, performing the technical details of the operation, placement the implants, closure of the wound, and placement of the sterile bandage. I attest to the content of the Intraoperative Record and any orders documented therein. Any exceptions are noted below.
--- NOTE | 2024-04-08 09:25 | XRay Report ---
XR hip 1V RT w pelvis HISTORY: 83 years-old Female IN PACU - Post Surgical right hip arthroplasty COMPARISON: 03/10/2024 TECHNIQUE: AP view of the pelvis with cross table lateral view of the right hip FINDINGS: Moderate left hip osteoarthritis. Generalized appearance of the bones. Satisfactory alignment of the right hip arthroplasty with interval removal of the previously noted proximal femoral hardware. Later al skin tray with expected postoperative soft tissue swelling and deep tissue air. Surgical clips project over the left inguinal tissues. IMPRESSION: Satisfactory alignment of the right hip arthroplasty. ACT 112: Negative or not required by law. The above report was generated using voice recognition software. It may contain grammatical, syntax o r spelling errors. Electronically signed by: Axel Matthews M.D. 04/08/2024 9:24 AM
[2024-04-08] MEDS: BACITRACIN OINT 14 GM TUBE ONE (10:17)
[2024-04-08] MEDS ORDERED: METOCLOPRAMIDE HCL INJ 5 MG/ML 2 ML VIAL IV PRN (10:24)
[2024-04-08] MEDS ORDERED: DICYCLOMINE HCL 10 MG CAP PO PRN (10:24)
[2024-04-08] MEDS ORDERED: bisacodyL 10 MG SUPP PR PRN (10:24)
[2024-04-08] MEDS ORDERED: NALOXONE HCL 0.4 MG/1 ML VIAL/CARP IV PRN (10:24)
[2024-04-08] MEDS ORDERED: ALPRAZolam 0.25 MG TABLET PO PRN (10:24)
[2024-04-08] MEDS ORDERED: NITROGLYCERIN SL 0.4 MG/TAB TAB SL PRN (10:24)
--- NOTE | 2024-04-08 10:46 | Anesthesiology Progress Note ---
Date of Service April 08, 2024 Anesthesia Post Procedure Vital Signs Vital Signs: Temp Pulse Pulse Resp BP Pulse Ox O2 Del Method 04/08/24 10:27 36.5 C 63 18 146/74 H 95 Room Air 04/08/24 09:55 61 18 151/81 H 96 Nasal Cannula 04/08/24 09:40 36.5 C 60 16 156/83 H 97 Nasal Cannula 04/08/24 09:30 63 14 137/85 97 Nasal Cannula 04/08/24 09:20 63 16 147/78 H 97 Nasal Cannula 04/08/24 09:10 63 22 157/84 H 97 Oxymask 04/08/24 09:00 64 22 158/83 H 99 Oxymask 04/08/24 08:50 36.3 C L 63 16 152/85 H 100 Oxymask 04/08/24 06:19 60 18 192/101 H 97 Room Air 04/08/24 05:45 36.8 C 90 18 198/118 H 96 Room Air O2 Flow Rate 04/08/24 10:27 04/08/24 09:55 2 04/08/24 09:40 2 04/08/24 09:30 2 04/08/24 09:20 2 04/08/24 09:10 2 04/08/24 09:00 2 04/08/24 08:50 4 04/08/24 06:19 04/08/24 05:45 Transfer of Care Handoff Completed per policy Notes Mental Status: alert / awake / arousable Patient Amnestic to Procedure: Yes Nausea / Vomiting: adequately controlled Pain: adequately controlled Airway Patency, RR, SpO2: stable & adequate BP & HR: stable & adequate Hydration State: stable & adequate Neuraxial Anesthesia: was administered and sensory block is resolving Anesthetic Complications: no major complications apparent
--- NOTE | 2024-04-08 10:56 | Consultation ---
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: (2) Pancreatic adenocarcinoma: (3) S/P CABG x 3: (4) Pacemaker: (5) SSS (sick sinus syndrome): (6) Atrial fibrillation: (7) Dyslipidemia: (8) HTN (hypertension): (9) Pulmonary embolism: (10) Hypothyroidism: (11) GERD (gastroesophageal reflux disease): Plan Assessment and plan: S/p right total hip arthroplasty with right hip hardware removal 04/08 History of right femoral neck closed reduction and internal fixation 10/25 Continue PT/OT, patient may need rehab on DC -Pain control, bowel regimen, DVT prophylaxis per primary team Hx of CAD s/p stenting/CABG: Hx SSS s/p PM: Continue Imdur/metoprolol, continue aspirin when okay with Ortho Hx DVT/PE: POD #0, continue Eliquis KISHA, DVT/PE occurred over 2 years ago Hx AF: Currently rate controlled on metoprolol, on Eliquis for AC Hx adenocarcinoma of the pancreas s/p Whipple's procedure: Follows with heme-onc outpatient HTN: Continue amlodipine/metoprolol, BP stable Adjustment disorder: Continue Zoloft A total of 45 minutes were spent on chart review/medication reconciliation/discussion with consultants/facilitation of plan of care Full code DVT prophylaxis: Eliquison hold, start KISHA with history of DVT/PE when okay with Ortho Supervising Physician Co-Signing Physician Notes Attending Addendum: Case reviewed with the advanced practitioner. I have personally performed a history and physical examination on the patient. I have reviewed the advanced practitioner's documentation on the date of service referenced in note, and I agree with, and take responsibility for the plan of care. please refer to her notes for full details patient seen and examined, records reviewed by myself as well on exam, patient seen resting in bed, sleeping easily awakened reports R hip pain no chest pain, dyspnea, palpitations, dizziness no other symptoms VS noted and reviewed oriented x 3, not in distress, speaks in sentences with no effort nor accessory muscle use normal rate, regular rhythm, no murmurs clear breath sounds bilaterally non distended, soft, nontender no bipedal edema, erythema, warmth no neuro deficits all labs, imaging noted and reviewed ASSESSMENT AND PLAN s/p RIGHT HIP ARTHROPLASTY doing fine overall postop ff up labs tomorrow pain control, PT/OT HISTORY OF DVT Eliquis on hold SCDs for now resume Eliquis or start Lovenox/Heparin SV as soon as hemostasis stable per Ortho HISTORY OF CAD, A FIB, TACHY STEVEN SYNDROME S/P PACEMAKER no cardiac symptoms ASA on hold continue usual Metoprolol, ISMN other diagnoses and plan of care as per advanced practitioner's notes Zain Enamorado MD History of Present Illness Requesting Physician: Victoriano Duenas MD Reason for Consultation: Postop medical management, s/p total hip arthro with right hip hardware removal Attending Physician: Victoriano Duenas MD History of Present Illness The patient is a 83-year-old female with a past medical history of hyperparathyroidism, adrenal insufficiency, adenocarcinoma of the pancreas s/p Whipple's procedure, hypothyroidism, HLD, pancreatic cyst, sinus node dysfunction s/p pacemaker, CAD s/p cardiac stenting, CABG, abdominal aortic ectasia, HTN, paroxysmal A-fib, bilateral carotid stenosis, GERD, CKD stage III, osteoporosis, DVT/PE, adjustment disorder who presents to the hospital on 04/08/2024 for s/p total right hip arthroplasty with right hip hardware removal. Patient was hospitalized in October 2023 with a fall and a fractured right hip and right wrist fracture. The patient is now 5 and half months out from internal fixation of valgus impacted femoral neck fracture with failure of hardware and nonunion. The patient was seen postoperatively this a.m. and reports her pain is well- controlled and she feels good. She is hemodynamically stable. She remains on room air with an oxygen saturation of 92%. Her heart rate is controlled in the 60s and her blood pressure is stable. She denies any chest pain/shortness of breath/fever/chills. Allergies Allergy/AdvReac Type Severity Reaction Status Date / Time Iodinated Contrast Media Allergy Severe Hives, Verified 04/08/24 05:42 anaphylaxis ether Allergy Unknown Unknown Verified 04/08/24 05:42 prednisone AdvReac Severe GI pain > Verified 04/08/24 05:42 pancreatitis rosiglitazone AdvReac Severe Blood clots Verified 04/08/24 05:42 atorvastatin [From Lipitor] AdvReac Intermediate Muscle Pain Verified 04/08/24 05:42 ezetimibe [From Zetia] AdvReac Intermediate Muscle Pain Verified 04/08/24 05:42 lisinopril AdvReac Intermediate Cough Verified 04/08/24 05:42 losartan AdvReac Intermediate N/V Verified 04/08/24 05:42 ranitidine AdvReac Intermediate N/V, Verified 04/08/24 05:42 achiness rosuvastatin [From [facility]] AdvReac Intermediate Muscle Pain Verified 04/08/24 05:42 Home Medications Medication Instructions Recorded Confirmed Type aspirin 81 mg tablet,delayed 81 mg PO QPM 03/19/18 04/08/24 History release levothyroxine 50 mcg tablet 50 mcg PO DAILYBB 03/19/18 04/08/24 History nitroglycerin 0.4 mg sublingual 1 tab sublingual UD PRN Chest Pain 03/19/18 04/08/24 History tablet alprazolam 0.25 mg tablet (Xanax) 0.25 mg PO TID PRN Anxiety/INSOMNIA 06/18/20 04/08/24 History cholecalciferol (vitamin D3) 50 2,000 unit PO QAM 06/18/20 04/08/24 History mcg (2,000 unit) tablet (Vitamin D3) dicyclomine 10 mg capsule 10 mg PO QID PRN Indigestion 06/18/20 04/08/24 History acetaminophen 500 mg tablet 1,000 mg PO Q8H PRN knee pain 02/24/21 04/08/24 History (Tylenol Extra Strength) cholestyramine (with sugar) 4 gram 1 ea PO Q OTHER DAY 12/21/22 04/08/24 History powder for susp in a packet sertraline 100 mg tablet 50 mg PO QAM 12/21/22 04/08/24 History isosorbide mononitrate 60 mg 60 mg PO BID 01/22/23 04/08/24 History tablet,extended release 24 hr apixaban 5 mg tablet (Eliquis) 5 mg PO BID 10/24/23 04/08/24 History diclofenac sodium 1 % topical gel 2 g topical QID PRN Pain 10/24/23 04/08/24 History hkkgoz-cqswmhez-sxrqoni 3 cap PO TIDM 10/24/23 04/08/24 History 3,000-9,500-15,000 unit capsule, delayed rel (Creon) metoprolol succinate 50 mg 50 mg PO BID 10/24/23 04/08/24 History tablet,extended release 24 hr simethicone 80 mg chewable tablet 80 - 160 mg PO QID PRN 10/24/23 04/08/24 History BLOATING/GAS DISCOMFORT calcium 600 mg (as 1 tab PO QAM 03/14/24 04/08/24 History carbonate)-vitamin D3 5 mcg (200 unit) tablet oxycodone 5 mg tablet 10 mg PO Q8H PRN pain 03/14/24 04/08/24 History Patient History Medical History Adrenal insufficiency listed in [facility] EMR-no notation by PCP History of blood transfusion post-op D&Cs Diabetes mellitus diet controlled TIA (transient ischemic attack) (~1971) SSS (sick sinus syndrome) follows with Dr Stephens, [place] Ratio pacemaker Dyslipidemia CAD (coronary artery disease) CABG x5 in 2005 in [place] with BROWN to LAD, SVG to diagonal, SVG to OM, SVG to RPDA, and SVG to the distal RCA, PCI x3 correction (current) use of anticoagulants Eliquis History of kidney stones History of pulmonary embolism multiple, most recent 2010 History of non-ST elevation myocardial infarction (NSTEMI) found on EKG Hypothyroidism Hypertension controlled, stable per pt GERD (gastroesophageal reflux disease) controlled, stable per pt History of DVT (deep vein thrombosis) (~2010) multiple, most recently in 2010 Chronic kidney disease (CKD) stage 3, monitoring with PCP Atrial fibrillation Eliquis History of pancreatic cancer Carotid artery stenosis LICA/FITZ <50% stenosis, Right subclavian stenosis vs. occlusion with abnormal flow noted in vertebral artery per 08/2019 carotid duplex Osteoarthritis Surgical History History of coronary artery bypass graft x 3 CABG x5 in 2005 in [place] with BROWN to LAD, SVG to diagonal, SVG to OM, SVG to RPDA, and SVG to the distal RCA History of hemorrhoidectomy History of appendectomy History of tonsillectomy and adenoidectomy History of hysterectomy History of bilateral cataract extraction History of cholecystectomy History of arthroscopy of shoulder History of arthroscopy of knee History of Whipple procedure History of hip surgery right Pacemaker placement, battery replacement 2022 [facility] H/O parathyroidectomy Family History Mother Stroke Social History Smoking Status: Never smoker Second Hand Exposure: No; Do You Dip or Chew Tobacco: No; Tobacco Cessation Education Requested by Patient: No Hx Alcohol Use: No Hx Substance Use: No Preferred Language: Kazakh Communication Ability: Effective 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: No Beliefs That Will Affect Care: None marital status: Current Living Situation: Spouse Current Living Situation Comment: with dementia Other Information That Helps Us Care for You: No Feels Safe at Home: Yes Safety Concerns: Feels Safe At This Time Assistive Devices: Cane, Glasses, Hearing Aid - Bilateral and Walker Review of Systems Review of Systems: All systems reviewed & are unremarkable except as noted in HPI & below Physical Exam Constitutional: WD/WN, vitals as above Eyes: PERRL, conjunctivae normal, anicteric sclerae ENMT: external ear and nose normal, oropharynx normal Neck: trachea midline, no thyromegaly Respiratory: normal respiratory effort, lungs clear to auscultation Cardiovascular: RRR, no murmur, no edema Gastrointestinal (Abdomen): normal bowel sounds, soft, nontender, no hepatosplenomegaly Musculoskeletal: no cyanosis or clubbing, extremities motor strength 5/5 (Bilateral sensation lower extremities, teds in place) Neurologic: PERRL, EOMI, accommodation nl, no face palsy, no dysarthria Psychiatric: A+Ox3, euthymic affect Results & Data Vital Signs (Past 12 Hours) Vital Signs Temp Pulse Pulse Resp BP Pulse Ox O2 Del Method 04/08/24 10:27 36.5 C 63 18 146/74 H 95 Room Air 04/08/24 09:55 61 18 151/81 H 96 Nasal Cannula 04/08/24 09:40 36.5 C 60 16 156/83 H 97 Nasal Cannula 04/08/24 09:30 63 14 137/85 97 Nasal Cannula 04/08/24 09:20 63 16 147/78 H 97 Nasal Cannula 04/08/24 09:10 63 22 157/84 H 97 Oxymask 04/08/24 09:00 64 22 158/83 H 99 Oxymask 04/08/24 08:50 36.3 C L 63 16 152/85 H 100 Oxymask 04/08/24 06:19 60 18 192/101 H 97 Room Air 04/08/24 05:45 36.8 C 90 18 198/118 H 96 Room Air O2 Flow Rate 04/08/24 10:27 04/08/24 09:55 2 04/08/24 09:40 2 04/08/24 09:30 2 04/08/24 09:20 2 04/08/24 09:10 2 04/08/24 09:00 2 04/08/24 08:50 4 04/08/24 06:19 04/08/24 05:45 Diagnostic Findings Laboratory Results POC Glucose 127 mg/dl (70-99) H 04/08/24 08:54 Impressions Hip/Pelvis X-Ray 04/08/24 08:52 XR hip 1V RT w pelvis HISTORY: 83 years-old Female IN PACU - Post Surgical right hip arthroplasty COMPARISON: 03/10/2024 TECHNIQUE: AP view of the pelvis with cross table lateral view of the right hip FINDINGS: Moderate left hip osteoarthritis. Generalized appearance of the bones. Satisfactory alignment of the right hip arthroplasty with interval removal of the previously noted proximal femoral hardware. Lateral skin tray with expected postoperative soft tissue swelling and deep tissue air. Surgical clips project over the left inguinal tissues. IMPRESSION: Satisfactory alignment of the right hip arthroplasty. ACT 112: Negative or not required by law. The above report was generated using voice recognition software. It may contain grammatical, syntax or spelling errors. Electronically signed by: Axel Matthews M.D. 04/08/2024 9:24 AM
[2024-04-08] MEDS: HYDROmorphone INJ 0.5 MG/0.5 ML SYR IV PRN (11:12)
[2024-04-08] MEDS: SODIUM CHLORIDE 0.9% 1,000 ML IV SCH (11:52)
[2024-04-08] MEDS: oxyCODONE HCL IR 5 MG TAB (IMMEDIATE RELEASE) PO PRN (12:29)
[2024-04-08] MEDS: CHOLECALCIFEROL 25 MCG (1000 UNITS) TAB PO SCH (12:30)
[2024-04-08] MEDS: SERTRALINE HCL 50 MG TABLET PO SCH (12:31)
[2024-04-08] MEDS: METOPROLOL SUCC 50MG EXT REL TAB PO SCH (12:31)
[2024-04-08] MEDS: ISOSORBIDE MONO EXTENDED REL 60 MG TABCR PO SCH (12:31)
[2024-04-08] MEDS: CALCIUM 600MG + VIT D 400 IU TAB PO SCH (12:32)
[2024-04-08] MEDS: MULTIVITAMIN TAB PO SCH (12:32)
[2024-04-08] MEDS: DOCUSATE SODIUM 100 MG CAP PO SCH (12:39)
[2024-04-08] MEDS: TRANEXAMIC ACID / 0.7% NACL 1,000 MG/100 ML BAG IV SCH (14:18)
[2024-04-08] MEDS: ceFAZolin 1000MG 1,000 MG/7.5 ML SYR IV SCH (14:18)
[2024-04-08] MEDS: ASCORBIC ACID 500 MG TAB PO SCH (16:17)
[2024-04-08] MEDS: ALUMINUM/MAGNESIUM SUSP 30 ML UDC PO PRN (17:04)
[2024-04-08] MEDS: ASPIRIN 81 MG ECTAB PO SCH (21:59)
[2024-04-08] MEDS: SENNA 8.6 MG TAB PO SCH (21:59)
[2024-04-09] MEDS: LEVOTHYROXINE SODIUM 50 MCG TABLET PO SCH (05:55)
[2024-04-09 06:48] LABS: Basophils # (auto) 0.03 K/uL (0.00-0.20); Basophils % (auto) 0.5 %; Eosinophils # (auto) 0.19 K/uL (0.00-0.50); Eosinophils % (auto) 2.9 %; Hemoglobin 9.8 g/dl (12.0-16.0); Immature Granulocytes # (auto) 0.02 K/uL (0.01-0.20); Immature Granulocytes % (auto) 0.3 %; Lymphocytes # (auto) 0.81 K/uL (1.20-3.40); Lymphocytes % (auto) 12.2 %; Mean Corpuscular Hemoglobin 29.6 pg (25.0-34.0); Mean Corpuscular Hgb Conc 31.6 g/dL (32.0-36.0); Mean Corpuscular Volume 93.7 fL (80.0-100.0); Monocytes # (auto) 0.64 K/uL (0.11-0.59); Monocytes % (auto) 9.7 %; Neutrophils # (auto) 4.93 K/uL (1.40-6.50); Neutrophils % (auto) 74.4 %; Platelet Count 161 K/uL (130-400); RDW Coefficient of Variation 13.3 % (11.5-14.5); RDW Standard Deviation 45.7 fL (36.4-46.3); Red Blood Count 3.31 M/uL (4.20-5.40); White Blood Count 6.62 K/ul (4.8-10.8)
[2024-04-09 07:17] LABS: BUN Creatinine Ratio 24.7 (10-20); Creatinine Clr Calc Pharmacy 52.9 ml/min; Potassium 3.4 mmol/L (3.5-5.1)
[2024-04-09] MEDS: POTASSIUM CHLORIDE CRTAB 20 MEQ TABCR PO STA (08:33)
[2024-04-09] MEDS: dexAMETHasone 10 MG in SYRINGE 0 ML IV SCH (08:35)
[2024-04-09] MEDS: MAGNESIUM HYDROXIDE SUSP 30 ML UDC PO PRN (08:43)
--- NOTE | 2024-04-09 09:21 | Orthopedic Progress Note ---
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 She is doing quite well. Multiple medical issues but looks quite stable. Plan: 1. DVT prophylaxis including thigh-high teds, SCDs, and back on Eliquis. Working to use a prophylactic dose for the next 2 days while in the hospital. Postop day 3 likely back to regular dose. 2. PT/OT. She can fully weight-bear as tolerated. Right total hip protocol. Does [place] hip precautions. 3. Pain control doing okay with current pain regimen. Try and limit narcotics. 4. Disposition she is open to go to a [facility]. I will start working on that today with long term care social worker. (2) Status post right hip replacement: Admission and Anticipated Discharge Date Admission Date: April 08, 2024 Subjective 83-year-old female postop day 1 from a right hip hardware removal and cemented total hip arthroplasty. She is doing pretty well this morning. Her pain is different. She finally got some sleep which she has not done for a while due to the pain. Denies any chest pain or shortness of breath. Not feeling dizzy or lightheaded. Physical Exam Physical Exam: Physical examination was a pleasant elderly female. As she sat of her bedside chair looks comfortable. She is awake alert and oriented. Examination the right hip reveals the leg to be well aligned. Dressings clean dry and intact. She can dorsiflex and plantarflex her foot appropriately. Results & Data Vital Signs (Past 12 Hours) Vital Signs Temp Pulse Resp BP Pulse Ox O2 Del Method 04/09/24 07:07 36.9 C 57 L 18 144/77 H 93 Room Air 04/09/24 03:00 36.8 C 63 18 119/67 93 Room Air 04/08/24 22:42 36.9 C 62 18 129/70 92 Room Air Laboratory Results Hemoglobin is 9.8. Hematocrit is 31.0. Potassium slightly low at 3.4. Creatinine stable.
--- NOTE | 2024-04-09 10:24 | Hospitalist Progress Note ---
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: (2) Pancreatic adenocarcinoma: (3) S/P CABG x 3: (4) Pacemaker: (5) SSS (sick sinus syndrome): (6) Atrial fibrillation: (7) Dyslipidemia: (8) HTN (hypertension): (9) Pulmonary embolism: (10) Hypothyroidism: (11) GERD (gastroesophageal reflux disease): Plan Assessment and plan: S/p right total hip arthroplasty with right hip hardware removal 04/08 History of right femoral neck closed reduction and internal fixation 10/25 PT/OT Ortho recommended rehab - CM to work on [facility] Limit narcotics as able Eliquis for dvt prophylaxis, per ortho prophylactic dose for 2 days then to resume regular dose POD #3, will defer to ortho continue senna, docusate and add miralax - pt with chronic constipation Hypokalemia replace, give 40meq x 1 now and give additional in p.m. to keep K > 4 with hx of AF Hx of CAD s/p stenting/CABG: Hx SSS s/p PM: Continue Imdur/metoprolol, continue aspirin when okay with Ortho Anemia hgb 9.8, hgb 10//24 was 12.0 in outpt setting likely dilutional component as EBL minimal follow h/h, also will obtain anemia panel in a.m. Hx DVT/PE: POD #1, eliquis prophylactic dose x 2 days then resume regular dose per ortho Hx AF: Currently rate controlled on metoprolol, on Eliquis for AC Hx adenocarcinoma of the pancreas s/p Whipple's procedure: Follows with heme-onc outpatient chronic constipation at baseline HTN: Continue amlodipine/metoprolol, BP stable Adjustment disorder: Continue Zoloft Full code DVT prophylaxis: Eliquis Thank you for this consultation. We will follow the patient with you during their hospital stay. You can reach a member of the [facility] Hospitalist Team 22/01 via hospitalist role on tiger text. A total of 44 minutes were spent on chart review/medication reconciliation/di scussion with consultants/facilitation of plan of care Admission and Anticipated Discharge Date Admission Date: April 08, 2024 Supervising Physician Co-Signing Physician Notes I have seen and discussed the case with the collaborating advanced practitioner. I agree with the above PN. I have reviewed and confirmed the patients medical history, the findings on physical examination, and the patients diagnosis and treatment plan with Enzo NEWTON and agree with the information documented. pending dispo to [facility] I spent a total of 5 minutes coordinating, documenting, and providing care for this patient excluding time spent in the performance of separately billed services. All of the aforementioned completed outside of collaborating with the assigned advanced practitioner for a full treatment plan. I have reviewed the advanced practitioner's documentation, and I agree with, and take responsibility for the plan of care Matt SUNG. She is having some pain to her RLE. She is going to work with OT this morning. Denies f/c/s, chest pain, sob, abd pain. Reports chronic constipation ever since her whipple, typically goes every 3 days. Tolerating diet. Review of Systems Review of Systems: All systems reviewed & are unremarkable except as noted in HPI & below Physical Exam Physical Exam: Gen: WD/WN, F, sitting up in bedside chair, appears stated age, NAD, A&O x3 HEENT: Normocephalic, atraumatic, conjunctivae moist, sclerae anicteric, mucous membranes moist. Lung: Clear to Auscultation bilaterally, no wheezes/rales/rhonchi Heart: Regular rate, regular rhythm, no murmurs, rubs, or gallops Abdomen: Soft, NT, ND +BS x 4 Extremities: No edema, RLE dressing CDI, NVI distally Skin: Warm, no rash, negative turgor. Results & Data Results & Data Vital Signs (Past 12 Hours) Vital Signs Temp Pulse Resp BP Pulse Ox O2 Del Method 04/09/24 07:07 36.9 C 57 L 18 144/77 H 93 Room Air 04/09/24 03:00 36.8 C 63 18 119/67 93 Room Air 04/08/24 22:42 36.9 C 62 18 129/70 92 Room Air Laboratory Results Short CBC 04/09/24 Range/Units 05:58 WBC 6.62 (4.8-10.8) K/ul Hgb 9.8 L (12.0-16.0) g/dl Hct 31.0 L (37.0-47.0) % Plt Count 161 (130-400) K/uL BMP 04/09/24 05:58 Sodium 139 Potassium 3.4 L Chloride 102 Carbon Dioxide 32 BUN 19 Creatinine 0.77 Glucose 106 H Calcium 9.0 Medications Administered Current Inpatient Medications Acetaminophen (Acetaminophen 500 Mg Tab) 1,000 mg PO Q8 NICK Stop: 05/08/24 13:59 Last Admin: 04/09/24 05:55 Dose: 1,000 mg Al Hydrox/Mg Hydrox/Simethicone (Aluminum/Magnesium Susp 30 Ml Udc) 15 ml PO Q4H PRN PRN Reason: Heartburn Stop: 05/08/24 10:23 Last Admin: 04/08/24 17:04 Dose: 15 ml Alprazolam (Alprazolam 0.25 Mg Tablet) 0.25 mg PO TID PRN PRN Reason: Anxiety/INSOMNIA Stop: 05/08/24 10:23 Apixaban (Apixaban 2.5 Mg Tab) 2.5 mg PO Q12H NICK Stop: 05/09/24 09:59 Ascorbic Acid (Ascorbic Acid 500 Mg Tab) 500 mg PO BIDM [facility] Stop: 05/08/24 16:59 Last Admin: 04/09/24 08:35 Dose: 500 mg Aspirin (Aspirin 81 Mg Ectab) 81 mg PO QPM [facility] Stop: 05/08/24 20:59 Last Admin: 04/08/24 21:59 Dose: 81 mg Bisacodyl (Bisacodyl 10 Mg Supp) 10 mg TX DAILY PRN PRN Reason: Constipation Stop: 05/08/24 10:23 Calcium/Vitamin D (Calcium 600mg + Vit D 400 Iu Tab) 1 tab PO QAM [facility] Stop: 05/08/24 11:29 Last Admin: 04/09/24 08:34 Dose: 1 tab Cholestyramine Resin (Cholestyramine Light 4 Gm Pkt) 4 gm PO Q2D@1200 [facility] Stop: 05/09/24 11:59 Dicyclomine HCl (Dicyclomine Hcl 10 Mg Cap) 10 mg PO QID PRN PRN Reason: Indigestion Stop: 05/08/24 10:23 Docusate Sodium (Docusate Sodium 100 Mg Cap) 100 mg PO BID [facility] Stop: 05/08/24 10:59 Last Admin: 04/09/24 08:34 Dose: 100 mg Hydromorphone HCl (Hydromorphone Inj 0.5 Mg/0.5 Ml Syr) 0.5 mg IV Q4H PRN PRN Reason: Pain or Pre PT Stop: 04/22/24 10:23 Last Admin: 04/08/24 19:49 Dose: 0.5 mg Isosorbide Mononitrate (Isosorbide [place] Extended Rel 60 Mg Tabcr) 60 mg PO BID [facility] Stop: 05/08/24 11:29 Last Admin: 04/09/24 08:34 Dose: 60 mg Levothyroxine Sodium (Levothyroxine Sodium 50 Mcg Tablet) 50 mcg PO DAILYBB [facility] Stop: 05/09/24 06:29 Last Admin: 04/09/24 05:55 Dose: 50 mcg Magnesium Hydroxide (Magnesium Hydroxide Susp 30 Ml Udc) 30 ml PO Q6H PRN PRN Reason: Constipation Stop: 05/08/24 10:23 Last Admin: 04/09/24 08:43 Dose: 30 ml Metoclopramide HCl (Metoclopramide Hcl Inj 5 Mg/Ml 2 Ml Vial) 10 mg IV Q6H PRN PRN Reason: Nausea And Vomiting Stop: 05/08/24 10:23 Metoprolol Succinate (Metoprolol Succ 50mg Ext Rel Tab) 50 mg PO BID [facility] Stop: 05/08/24 11:29 Last Admin: 04/09/24 08:34 Dose: 50 mg Miscellaneous (Order Awaiting Action--Creon) 1 each N/A QS [facility] Stop: 05/08/24 11:29 Last Admin: 04/09/24 00:21 Dose: Not Given Multivitamins (Multivitamin Tab) 1 tab PO QAM [facility] Stop: 05/08/24 10:59 Last Admin: 04/09/24 08:34 Dose: 1 tab Naloxone HCl (Naloxone Hcl 0.4 Mg/1 Ml Vial/Carp) 0.1 mg IV Q5M PRN PRN Reason: Oversedation/Resp Depression Stop: 05/08/24 10:23 Nitroglycerin (Nitroglycerin Sl 0.4 Mg/Tab Tab) 0.4 mg SL UD PRN PRN Reason: Chest Pain Stop: 05/08/24 10:23 Ondansetron HCl (Ondansetron Inj 2 Mg/Ml 2 Ml Vial) 4 mg IV Q6H PRN PRN Reason: Nausea And Vomiting Stop: 05/08/24 10:23 Oxycodone HCl (Oxycodone Hcl Ir 5 Mg Tab (Immediate Release)) 10 mg PO Q8H PRN PRN Reason: pain Stop: 04/22/24 10:23 Last Admin: 04/08/24 21:58 Dose: 10 mg Sennosides (Senna 8.6 Mg Tab) 17.2 mg PO [facility] Stop: 05/08/24 20:59 Last Admin: 04/08/24 21:59 Dose: 17.2 mg Sertraline HCl (Sertraline Hcl 50 Mg Tablet) [facility] [place]: 05/08/24 11:29 Last Admin: 04/09/24 08:34 Dose: 50 mg Vitamin D (Cholecalciferol 25 Mcg (1000 Units) Tab) 50 mcg PO QAM [facility] Stop: 05/08/24 11:29 Last Admin: 04/09/24 08:34 Dose: 50 mcg
[2024-04-09] MEDS: INFLUENZA VACC TS2024-25(65y+)/PF (IIV3) 0.5mL Syr IM ONE (10:51)
[2024-04-09] MEDS: APIXABAN 2.5 MG TAB PO SCH (10:54)
[2024-04-09] MEDS: CHOLESTYRAMINE LIGHT 4 GM PKT PO SCH (12:00)
[2024-04-09] MEDS: POTASSIUM CHLORIDE CRTAB 20 MEQ TABCR PO ONE (16:17)
[2024-04-09 21:10] VITALS: RESP 16
[2024-04-10] MEDS: diphenhydrAMINE Capsule 25 MG CAP PO ONE (00:20)
[2024-04-10 06:23] LABS: Hematocrit (blood only) 29.9 % (37.0-47.0); Hemoglobin 9.5 g/dl (12.0-16.0); Mean Corpuscular Hemoglobin 29.4 pg (25.0-34.0); Mean Corpuscular Hgb Conc 31.8 g/dL (32.0-36.0); Mean Corpuscular Volume 92.6 fL (80.0-100.0); Mean Platelet Volume 11.1 fL (9.4-12.4); Platelet Count 166 K/uL (130-400); RDW Coefficient of Variation 13.3 % (11.5-14.5); Red Blood Count 3.23 M/uL (4.20-5.40)
[2024-04-10 06:50] LABS: Calcium 9.3 mg/dl (8.6-10.3); Creatinine Clr Calc Pharmacy 54.3 ml/min; Potassium 4.6 mmol/L (3.5-5.1)
--- NOTE | 2024-04-10 07:04 | Orthopedic Progress Note ---
Date of Service April 10, 2024 Assessment & Plan (1) Status post right hip replacement: Plan: 83-year-old female with multiple medical comorbidities now postop day 2 from right hip hardware removal and hybrid total hip arthroplasty. She is medically and orthopedically doing pretty well. She is still having some soreness which is to be expected. Her hips located. She is neurologically intact. Plan: 1. DVT prophylaxis including thigh-high teds, SCDs, and back on her Eliquis. She is currently at a prophylactic dose and on discharge we will send her on a regular dose. 2. PT/OT. Weight-bear as tolerated. Right total hip protocol. 3. Pain control doing okay with current pain regimen. 4. Disposition. She is hoping to go to [facility]. I think she needs a 3-day hospital stay. Hopefully will get her a bed there tomorrow. Admission and Anticipated Discharge Date Admission Date: April 08, 2024 Subjective 83-year-old female postop day 2 from hip hardware removal and hybrid total hip arthroplasty. She is doing pretty well. Having quite a bit of soreness in the hip. She is waiting to go to [facility]. No chest pain or shortness of breath. Physical Exam Physical Exam: Rickie ariza is a pleasant elderly female. She is lying in bed and looks pretty comfortable this morning. She is awake alert and oriented. Examination of the hip reveals the dressing be clean dry and intact. Leg lengths appear equal. Hip is located. She is neurologically intact. Results & Data Vital Signs (Past 12 Hours) Vital Signs Temp Pulse Resp BP Pulse Ox O2 Del Method 04/09/24 19:20 36.9 C 72 16 150/87 H 93 Room Air Laboratory Results Labs results reveal hemoglobin 9.5. Hematocrit 29.9. Electrolytes are stable.
[2024-04-10 07:08] LABS: Folate (Folic Acid),Ser orPlas 14.26 ng/ml (>5.38)
[2024-04-10 07:09] LABS: Ferritin 301.2 ng/ml (8-388)
[2024-04-10] MEDS: POLYETHYLENE (MIRALAX) 17 GM PACK PO SCH (08:37)
--- NOTE | 2024-04-10 11:28 | Hospitalist Progress Note ---
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: (2) Pancreatic adenocarcinoma: (3) S/P CABG x 3: (4) Pacemaker: (5) SSS (sick sinus syndrome): (6) Atrial fibrillation: (7) Dyslipidemia: (8) HTN (hypertension): (9) Pulmonary embolism: (10) Hypothyroidism: (11) GERD (gastroesophageal reflux disease): Plan S/p right total hip arthroplasty with right hip hardware removal 04/08 History of right femoral neck closed reduction and internal fixation 10/25 PT/OT - weight bearing as tolerated Ortho recommended rehab - CM to work on [employer], plan for discharge tomorrow Limit narcotics as able Eliquis for dvt prophylaxis, per ortho prophylactic dose for now and resume regular dose upon discharge tomorrow Continue senna, docusate and add miralax - pt with chronic constipation Hypokalemia Replaced, 4.6 today Hx of CAD s/p stenting/CABG: Hx SSS s/p PM: Continue Imdur/metoprolol, continue aspirin when okay with Ortho Anemia Likely multifactorial - post op plus MAURICE as below hgb 9.8 -> 9.5, hgb 04/02/24 was 12.0 in outpt setting Vitamin B12 and folate WNL MAURICE noted with anemia panel showing iron low at 18, TIBC low at 190, transferrin low at 9% Will initiate iron supplement, repeat CBC at SNF vs PCP to follow Hx DVT/PE: POD #1, eliquis prophylactic dose for now, resuming regular dose tomorrow Hx AF: Currently rate controlled on metoprolol, on Eliquis for AC Hx adenocarcinoma of the pancreas s/p Whipple's procedure: Follows with heme-onc outpatient chronic constipation at baseline HTN: Continue amlodipine/metoprolol, BP stable Adjustment disorder: Continue Zoloft Full code DVT prophylaxis: Eliquis Thank you for this consultation. We will follow the patient with you during their hospital stay. You can reach a member of the [facility] Hospitalist Team 22/01 via hospitalist role on tiger text. A total of 50 minutes were spent on chart review/medication reconciliation/discussion with consultants/facilitation of plan of care Admission and Anticipated Discharge Date Admission Date: April 08, 2024 Supervising Physician Co-Signing Physician Notes I have seen and discussed the case with the collaborating advanced practitioner. I agree with the above PN. I have reviewed and confirmed the patients medical history, the findings on physical examination, and the patients diagnosis and treatment plan with Henrique NEWTON and agree with the information documented. pending dispo to [facility] I spent a total of 5 minutes coordinating, documenting, and providing care for this patient excluding time spent in the performance of separately billed services. All of the aforementioned completed outside of collaborating with the assigned advanced practitioner for a full treatment plan. I have reviewed the advanced practitioner's documentation, and I agree with, and take responsibility for the plan of care Subjective No acute changes overnight. Was able to stand and administer a bed bath with help of RN CONCURRENT REVIEW, participate with therapy. Pain controlled this morning. Passing gas. No F/C, CP, SOB, N/V, abd pain, dysuria, diarrhea or constipation. Review of Systems Review of Systems: At least ten systems reviewed and negative except as noted in the HPI. Physical Exam Physical Exam: Gen: WD/WN, F, sitting up in bedside chair, NAD, A&O x3 HEENT: Normocephalic, atraumatic, conjunctivae moist, sclerae anicteric, mucous membranes moist. Lung: Clear to Auscultation bilaterally, no wheezes/rales/rhonchi Heart: Regular rate, regular rhythm, no murmurs, rubs, or gallops Abdomen: Soft, NT, ND +BS x 4 Extremities: No edema, RLE dressing CDI, NVI distally Skin: Warm, no rash Results & Data Results & Data Vital Signs (Past 12 Hours) Vital Signs Temp Pulse Resp BP Pulse Ox O2 Del Method 04/10/24 07:48 36.6 C 65 16 166/81 H 95 Room Air Laboratory Results Short CBC 04/10/24 Range/Units 06:04 WBC 10.40 (4.8-10.8) K/ul Hgb 9.5 L (12.0-16.0) g/dl Hct 29.9 L (37.0-47.0) % Plt Count 166 (130-400) K/uL BMP 04/10/24 06:04 Sodium 139 Potassium 4.6 D Chloride 105 Carbon Dioxide 29 BUN 24 H Creatinine 0.75 Glucose 127 H Calcium 9.3 Diagnostic Findings Hip/Pelvis X-Ray 04/08/24 08:52 XR hip 1V RT w pelvis HISTORY: 83 years-old Female IN PACU - Post Surgical right hip arthroplasty COMPARISON: 03/10/2024 TECHNIQUE: AP view of the pelvis with cross table lateral view of the right hip FINDINGS: Moderate left hip osteoarthritis. Generalized appearance of the bones. Satisfactory alignment of the right hip arthroplasty with interval removal of the previously noted proximal femoral hardware. Lateral skin tray with expected postoperative soft tissue swelling and deep tissue air. Surgical clips project over the left inguinal tissues. IMPRESSION: Satisfactory alignment of the right hip arthroplasty. ACT 112: Negative or not required by law. The above report was generated using voice recognition software. It may contain grammatical, syntax or spelling errors. Electronically signed by: Axel Matthews M.D. 04/08/2024 9:24 AM
[2024-04-10] MEDS: CREON PO SCH (16:38)
[2024-04-11 06:45] LABS: Hematocrit (blood only) 28.2 % (37.0-47.0); Hemoglobin 9.3 g/dl (12.0-16.0)
--- NOTE | 2024-04-11 06:56 | Orthopedic Progress Note ---
Date of Service April 11, 2024 Assessment & Plan (1) Status post right hip replacement: Plan: 83-year-old female with multiple medical core morbidities now 3 days out from hardware removal and hybrid total hip replacement. She is doing well. Getting better daily. She is hoping to go [facility] today. Plan: Will continue with DVT prophylaxis including thigh-high teds, SCDs, and back on her Eliquis. She will resume a normal dose on discharge. She can fully weight-bear as tolerated. Needs to obey hip precautions. Transferred to [facility] today. Follow-up my office in 2 to 3 weeks. Admission and Anticipated Discharge Date Admission Date: April 08, 2024 Subjective 83-year-old female postop day 3 from right hip hardware removal and hybrid total hip replacement. She is doing quite bit better this morning. Pain is getting better daily. Just waiting for placement. No chest pain or shortness of breath. Not feeling dizzy or lightheaded. Physical Exam Physical Exam: Physical examination is a pleasant elderly female patient lying bed. She is awake alert and oriented. Examination the right hip reveals incision to be clean dry and intact. No drainage. Thigh is soft and supple. She is neurologically intact. Results & Data Vital Signs (Past 12 Hours) Vital Signs Temp Pulse Resp BP Pulse Ox O2 Del Method 04/10/24 20:42 37 C 64 16 148/76 H 93 Room Air
[2024-04-11 07:09] LABS: Calcium 8.9 mg/dl (8.6-10.3); Creatinine Clr Calc Pharmacy 50.9 ml/min; Potassium 4.2 mmol/L (3.5-5.1)
[2024-04-11] MEDS: FERROUS SULFATE 325 MG TAB PO SCH (07:58)
[2024-04-11 08:11] VITALS: BP 149/85; PULSE 71; TEMP 97.9; O2SAT 95
--- NOTE | 2024-04-11 11:12 | Hospitalist Progress Note ---
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: (2) Pancreatic adenocarcinoma: (3) S/P CABG x 3: (4) Pacemaker: (5) SSS (sick sinus syndrome): (6) Atrial fibrillation: (7) Dyslipidemia: (8) HTN (hypertension): (9) Pulmonary embolism: (10) Hypothyroidism: (11) GERD (gastroesophageal reflux disease): Plan S/p right total hip arthroplasty with right hip hardware removal 04/08 History of right femoral neck closed reduction and internal fixation 10/25 PT/OT - weight bearing as tolerated Ortho recommended rehab - plan for discharge to [facility] today Limit narcotics as able Eliquis for dvt prophylaxis, per ortho prophylactic dose for now and resuming regular dose of Eliquis upon discharge today Continue senna, docusate and add miralax - pt with chronic constipation Last bowel movement 04/11 Hypokalemia Replaced, 4.6 today Chronic L paresthesias Endorsing intermittent paresthesias today, worse with walker use Symptoms present since fall back in September, unchanged and intermittent Reviewed L wrist XR from that time - old, healed distal left radius fracture with a cortical plate and screws. The hardware appears intact. Degenerative changes within the left wrist. No acute fracture or dislocation Reassured patient, will need to take breaks with walker as needed Follow up with ortho for any acute change Hx of CAD s/p stenting/CABG: Hx SSS s/p PM: Continue Imdur/metoprolol, ortho resuming aspirin today Anemia Likely multifactorial - post op plus MAURICE as below hgb 9.5 -> 9.3, hgb 04/02/24 was 12.0 in outpt setting Vitamin B12 and folate WNL MAURICE noted with anemia panel showing iron low at 18, TIBC low at 190, transferrin low at 9% Will initiate iron supplement, repeat CBC at SNF vs PCP to follow Hx DVT/PE: POD #1, eliquis prophylactic dose for now, resuming regular dose tomorrow Hx AF: Currently rate controlled on metoprolol, on Eliquis for AC Hx adenocarcinoma of the pancreas s/p Whipple's procedure: Follows with heme-onc outpatient chronic constipation at baseline HTN: Continue amlodipine/metoprolol, BP stable Adjustment disorder: Continue Zoloft Full code DVT prophylaxis: Eliquis Thank you for this consultation. We will follow the patient with you during their hospital stay. You can reach a member of the [facility] Hospitalist Team 22/01 via hospitalist role on tiger text. A total of 40 minutes were spent on chart review/medication reconciliation/discussion with consultants/facilitation of plan of care Admission and Anticipated Discharge Date Admission Date: April 08, 2024 Supervising Physician Co-Signing Physician Notes I have seen and discussed the case with the collaborating advanced practitioner. I agree with the above PN. I have reviewed and confirmed the patients medical history, the findings on physical examination, and the patients diagnosis and treatment plan with Henrique NEWTON and agree with the information documented. agree with above, medically stable I spent a total of 5 minutes coordinating, documenting, and providing care for this patient excluding time spent in the performance of separately billed services. All of the aforementioned completed outside of collaborating with the assigned advanced practitioner for a full treatment plan. I have reviewed the advanced practitioner's documentation, and I agree with, and take responsibility for the plan of care Subjective Patient seen and examined in 355-2, also when ambulating with PT in the [place]. Doing well with minimal pain, ambulating with a walker. No CP, SOB, N/V, dysuria. No post op bowel movement but compliant with bowel regimen. Passing gas, ambulating in halls. No N/V or abd bloating. Ready for discharge to SNF this afternoon. Review of Systems Review of Systems: At least ten systems reviewed and negative except as noted in the HPI. Physical Exam Physical Exam: Gen: WD/WN, F, standing with walker in room, NAD, A&O x3 HEENT: Normocephalic, atraumatic, conjunctivae moist, sclerae anicteric, mucous membranes moist. Lung: Clear to Auscultation bilaterally, no wheezes/rales/rhonchi Heart: Regular rate, regular rhythm, no murmurs, rubs, or gallops Abdomen: Soft, NT, ND +BS x 4 Extremities: No edema, RLE lateral hip tray visualized, c/d/i, NVI distally Skin: Warm, no rash Results & Data Results & Data Vital Signs (Past 12 Hours) Vital Signs Temp Pulse Resp BP Pulse Ox O2 Del Method 04/11/24 08:09 36.6 C 71 16 149/85 H 95 Room Air Laboratory Results Short CBC 04/11/24 Range/Units 05:58 Hgb 9.3 L (12.0-16.0) g/dl Hct 28.2 L (37.0-47.0) % BMP 04/11/24 05:58 Sodium 141 Potassium 4.2 Chloride 104 Carbon Dioxide 34 H BUN 24 H Creatinine 0.80 Glucose 95 Calcium 8.9 Diagnostic Findings Hip/Pelvis X-Ray 04/08/24 08:52 XR hip 1V RT w pelvis HISTORY: 83 years-old Female IN PACU - Post Surgical right hip arthroplasty COMPARISON: 03/10/2024 TECHNIQUE: AP view of the pelvis with cross table lateral view of the right hip FINDINGS: Moderate left hip osteoarthritis. Generalized appearance of the bones. Satisfactory alignment of the right hip arthroplasty with interval removal of the previously noted proximal femoral hardware. Lateral skin tray with expect ed postoperative soft tissue swelling and deep tissue air. Surgical clips project over the left inguinal tissues. IMPRESSION: Satisfactory alignment of the right hip arthroplasty. ACT 112: Negative or not required by law. The above report was generated using voice recognition software. It may contain grammatical, syntax or spelling errors. Electronically signed by: Axel Matthews M.D. 04/08/2024 9:24 AM
[2024-04-11] MEDS: bisacodyL 10 MG SUPP PR STA (11:30)
--- NOTE | 2024-04-14 12:07 | Discharge Summary ---
Date of Service April 14, 2024 Discharge Data Consultations 04/08/24 10:24 Consult Internal Medicine Routine Procedures Performed Operation Date: 04/08/24 07:00 Actual Procedures p Right Cemented Total Hip Arthroplasty with(Right) - Victoriano Duenas MD s Right Hip Hardware Removal(Right) - Victoriano Duenas MD Hospital Course (1) Status post right hip replacement: This is a 83 year old patient admitted on 04/08/24 and underwent hardware removal and total hip arthroplasty. She tolerated the procedure well and there were no complications. Transferred to the PACU post op and later to the orthopedic floor for further care. She was given ancef for antibiotic prophylaxis. She was also given THOMAS stockings, SCDs, and eliquis for DVT prophylaxis. Hemoglobin, hematocrit, and vital signs were monitored during her hospital stay and remained stable. She did have some post op anemia but did not require any blood transfusions. There were no complications during her hospital stay. She was followed by the hospitalist service throughout her hospital stay as well. By post op day #3 the patient was tolerating a regular diet, pain was reasonably controlled with oral pain medicine, and she was participating in physical therapy. On post op day #3 the patient was discharged to a [facility] facility. She was given printed discharge instructions including prescriptions for extra strength tylenol, oxycodone, and iron supplement. Continue eliquis. Continue physical therapy, weight bearing as tolerated. Continue THOMAS stockings. Follow up approximately 2 weeks post op or sooner if there are problems or concerns. Coding Level of Care Code None Diagnoses Status post right hip replacement Z96.641
== END 2024-04-11 14:48 | DRG 522 ==
LOC: ASU 05:23 → 3W 08:52